=== PATIENT | male | born 1940 | race Caucasian/White ===

== ENCOUNTER 2017-07-29 10:22 | Inpatient (IN) | payer MEDICARE, OTHER, SELFPAY ==
[2017-07-29] VITALS (11 sets, daily range): BP systolic 129–177; BP diastolic 65–87; PULSE 63–93; RESP 16–21; TEMP 36.7–38.8; O2SAT 93–97; BMI 31.2; BMI 30.7
--- NOTE | 2017-07-29 10:40 | RAD_ITS ---
STUDY: X-RAY CHEST REASON FOR EXAM: Male, 76 years old. Cough. TECHNIQUE: Single AP portable view of the chest. COMPARISON: Comparison is made with prior study dated July 28, 2017. FINDINGS: EKG electrodes are seen. Stable elevation of the right hemidiaphragm. Stable mild increased interstitial markings bilaterally. This is stable. This most likely represents scarring. At this time however, there is a mild degree of vascular congestion. Sternal cerclage wires and vascular clips are present from a prior sternotomy and coronary artery bypass graft procedure (CABG). Normal mediastinum and coco. Normal visualized pulmonary arteries. There is atherosclerotic calcification of the aortic arch with tortuosity. There are diffuse degenerative changes of the visualized thoracic spine. Normal visualized ribs, clavicles, and shoulders. There is no demonstrated abnormality of the visualized soft tissue structures of the upper abdomen. RAD/Chest 1 View (Portable) IMPRESSION: Mild degree of vascular congestion superimposed on interstitial scarring. Electronically Signed: Marquis Luna MD at 11:44 EST Tel [phone], Service support ,
[2017-07-29 11:40] LABS: Anion Gap 11 (5-15); BUN 49 mg/dL (7-18); BUN/Creat Ratio 17.2 RATIO (10-20); Calcium,Total 8.4 mg/dL (8.5-10.1); Chloride 98 mmol/L (98-107); Creatinine, Serum 2.85 mg/dL (0.70-1.30); EST Glomerular Filtration Rate 23 mL/min (>60); Est Glom Filt Rate - Afr Amer 28 mL/min (>60); Estimated Creatinine Clearance 22.77 ml/min; Glucose 143 mg/dL (70-110); Potassium 4.3 mmol/L (3.5-5.1); Sodium Level 132 mmol/L (136-145)
[2017-07-29 11:41] LABS: Absolute Lymphocyte Count 0.52 X10^3/ul (0.83-4.51); Absolute Neutrophil Count 6.4 X10^3/uL (2.0-7.7); Basophil# 0.01 X10^3/uL; Basophil% 0.1 % (0-1); Differential Indicated SCAN CRITERIA MET; Eosinophil# 0.02 X10^3/uL; Eosinophils% 0.3 % (0-5); Hematocrit 29.2 % (40-54); Hemoglobin 9.5 g/dl (13.0-16.5); Lymphocyte # 0.52 X10^3/ul (4.0); Lymphocyte % 6.8 % (19-41); Mean Corp Hgb Conc 32.5 g/gl (32-36); Mean Corpuscular Hgb 28.2 pg (27.0-32.0); Mean Corpuscular Volume 86.6 fL (80-94); Mean Platelet Vol. 10.1 fl (6.2-12.0); Monocyte# 0.64 X10^3/uL; Monocyte% 8.4 % (0-10); Neutrophil % 84.1 % (47-70); POSITIVE COUNT NO; POSITIVE DIFFERENTIAL YES; POSITIVE MORPHOLOGY NO; Platelet Count 129 K/mm3 (150-450); Red Blood Count 3.37 M/mm3 (4.6-6.2); White Blood Count 7.6 K/mm3 (4.4-11.0)
--- NOTE | 2017-07-29 13:03 | ED.VISSUMM ---
- ER Visit Summary Date of Service: 07/29/17 Chief Complaint: Not feeling well. Sent in by primary care physician's office due to positive blood cultures. History of Present Illness: The patient is a 76 M history of renal insufficiency due to having one kidney from a prior nephrectomy for kidney cancer. Prior triple bypass. History of diabetes and hypertension. He is also had valvular heart surgery. Patient has been feeling well basically since Angella. His intermittent fever and chills and a cough. He was seen in the ER workup and follow-up with primary care physician. Blood cultures were obtained it was positive for enterococcus and is sitting in the ER for further evaluation. Physical Examination: Well-appearing older male. Vital signs are stable afebrile. Temperature here is 99.5. He does not look septic or toxic. He is in no acute distress. His blood pressure is 142/72. HEENT exam unremarkable. Neck nontender no lymphadenopathy. Lungs clear to auscultation bilaterally. Heart regular rhythm for her systolic ejection murmur which is old. Abdomen soft nontender. Extremities moves all 4. Neurologically intact. No deformity. Neurologic exam is awake alert without focal deficits. Patient's and daughter accompany him in room. Test Results: Chest x-ray shows chronic changes no acute process. Prior sternotomy read both by myself and the radiologist. CBC shows a white count 7.6. H&H of 9.5 and 29 which is along his baseline. No bands. BMP shows sodium 132. Normal anion gap of 11. Creatinine 2.85 which is long his baseline. And dehydration with a BUN of 49. We were able to get his blood culture results from his doctor's office which showed positive enterococcus and pending sensitivities. Emergency Department Course and Treatment: Patient will be admitted for bacteremia. Treatment Plan: I will speak to the hospitalist about admission and IV antibiotic of choice. Disposition: Admission Impression: Positive blood cultures secondary to bacteremia Chronic anemia and chronic renal insufficiency. Hydration. History of [id number] diabetes, only one kidney, triple bypass and aortic valve repair This note was generated with [employer] dictation software. It may contain incorrect words, spelling, and punctuation that were not noted in review of the chart prior to signing ED Disposition - Plan for ED Patient: Chief Complaint: Abn Labs Referrals: Dejuan Catherine DO [Primary Care Provider] -
--- NOTE | 2017-07-29 13:08 | ED.DCSUM_ITS ---
- ER Visit Summary Date of Service: 07/29/17 Chief Complaint: Not feeling well. Sent in by primary care physician's office due to positive blood cultures. History of Present Illness: The patient is a 76 M history of renal insufficiency due to having one kidney from a prior nephrectomy for kidney cancer. Prior triple bypass. History of diabetes and hypertension. He is also had valvular heart surgery. Patient has been feeling well basically since Angella. His intermittent fever and chills and a cough. He was seen in the ER workup and follow-up with primary care physician. Blood cultures were obtained it was positive for enterococcus and is sitting in the ER for further evaluation. Physical Examination: Well-appearing older male. Vital signs are stable afebrile. Temperature here is 99.5. He does not look septic or toxic. He is in no acute distress. His blood pressure is 142/72. HEENT exam unremarkable. Neck nontender no lymphadenopathy. Lungs clear to auscultation bilaterally. Heart regular rhythm for her systolic ejection murmur which is old. Abdomen soft nontender. Extremities moves all 4. Neurologically intact. No deformity. Neurologic exam is awake alert without focal deficits. Patient's and daughter accompany him in room. Test Results: Chest x-ray shows chronic changes no acute process. Prior sternotomy read both by myself and the radiologist. CBC shows a white count 7.6. H&H of 9.5 and 29 which is along his baseline. No bands. BMP shows sodium 132. Normal anion gap of 11. Creatinine 2.85 which is long his baseline. And dehydration with a BUN of 49. We were able to get his blood culture results from his doctor's office which showed positive enterococcus and pending sensitivities. Emergency Department Course and Treatment: Patient will be admitted for bacteremia. Treatment Plan: I will speak to the hospitalist about admission and IV antibiotic of choice. Disposition: Admission Impression: Positive blood cultures secondary to bacteremia Chronic anemia and chronic renal insufficiency. Hydration. History of [id number] diabetes, only one kidney, triple bypass and aortic valve repair This note was generated with [employer] dictation software. It may contain incorrect words, spelling, and punctuation that were not noted in review of the chart prior to signing ED Disposition - Plan for ED Patient: Chief Complaint: Abn Labs Referrals: Dejuan Catherine DO [Primary Care Provider] -
[2017-07-29] MEDS: 0.9% Normal Saline 1,000 ML 999 ML IV (13:54)
--- NOTE | 2017-07-29 13:57 | PCM.HP.STD ---
Problem List (1) Renal cell cancer Status: Chronic Comment: S/P nephrectomy on January 13, 2016 at (2) DM2 (diabetes mellitus, type 2) Status: Chronic (3) Hypertension, essential Status: Chronic (4) CAD (coronary artery disease) Status: Chronic (5) S/P CABG x 3 Status: Chronic Comment: Triple bypass in July 2015 at [facility] in [place] (6) Osteoarthritis of left knee Status: Chronic (7) Hypertension Status: Chronic (8) Hyperlipidemia Status: Chronic (9) Aortic stenosis Status: Chronic (10) Solitary kidney Status: Chronic (11) Chronic kidney disease Status: Chronic Qualifiers: Chronic kidney disease stage: stage 4 (severe) Qualified Code(s): N18.4 - Chronic kidney disease, stage 4 (severe) History of Present Illness Date of Admission: 07/29/17 Chief Complaint: Generalized weakness and fever for about 1 week The patient is a 76 year old M with multiple comorbidities listed including bioprosthetic aortic valve, triple bypass CABG in July 2015, renal cell cancer status post nephrectomy in January 2016 1 diabetes mellitus type 2 came to ER with complaint of generalized weakness and low-grade fever for 1 week. The patient has severe weakness and could not even stand up or walk around her last 1 week. As per the , patient also had confusion, 2 episode and could not understand her. As per the patient's , his baseline temperature is 97 Fahrenheit and he has been having temperature 99.8. He also has cough going on since last Angella. Yesterday, his PCP Dr. Catherine sent blood culture which came positive of Enterococcus faecalis on PCR. Influenza test negative. Besides that, patient denies any focal symptoms of infection including lower urinary tract symptoms, tachypnea, chest pain, shortness of breath, abdominal pain. In ED, his temperature was 99.5 Fahrenheit. Mild tachypnea, respiratory rate 20-21/min but no labored breathing. No tachycardia pulse ox 96% on room air. In ED, chest x-ray shows mild degree of vascular congestion. Basic blood work does not show leukocytosis but mild anemia and thrombocytopenia. Patient is not on any anticoagulation/antiplatelet agent because of history of coagulopathy probably after nephrectomy. He also has bruise on the upper extremities. Past Medical History Past Medical History (Chronic Problems): Chronic Problems Renal cell cancer (Chronic) S/P nephrectomy on January 13, 2016 at DM2 (diabetes mellitus, type 2) (Chronic) Hypertension, essential (Chronic) CAD (coronary artery disease) (Chronic) S/P CABG x 3 (Chronic) Triple bypass in July 2015 at [facility] Osteoarthritis of left knee (Chronic) Hypertension (Chronic) Hyperlipidemia (Chronic) Aortic stenosis (Chronic) Solitary kidney (Chronic) Chronic kidney disease (Chronic) Allergies losartan potassium [From Cozaar] Allergy (Severe, Verified 07/29/17 10:25) Other valsartan [From Diovan HCT] Allergy (Severe, Verified 07/29/17 10:25) Other amlodipine besylate [From Norvasc] Allergy (Verified 07/29/17 10:25) Other doxazosin mesylate [From Cardura] Allergy (Verified 07/29/17 10:25) Other furosemide [From Lasix] Allergy (Verified 07/29/17 10:25) Other hydrochlorothiazide Allergy (Verified 07/29/17 10:25) Other metoprolol succinate [From Toprol XL] Allergy (Verified 07/29/17 10:25) Other simvastatin Allergy (Verified 07/29/17 10:25) Other oxycodone [From OxyIR] Adverse Reaction (Verified 07/29/17 10:25) Other Hydrogenated Vegetable Oil Adverse Reaction (Uncoded 07/29/17 13:53) Upset Stomach vicodin Adverse Reaction (Uncoded 07/29/17 10:25) Other Home Medications: Ambulatory Orders Medication Instructions Recorded Ascorbic Acid [Vitamin C] 1,000 mg PO DAILY@0800 02/06/16 Multivitamin [Daily Multiple 1 each PO DAILY 02/06/16 Vitamin] Nateglinide [Starlix] 30 mg PO TIDCM 02/06/16 Cholecalciferol (Vitamin D3) 2,000 unit PO DAILY 07/28/17 [Vitamin D3] Docusate Sodium [Colace] 100 mg PO DAILY 07/28/17 Iron Polysaccharide Complex 325 mg PO DAILYCM 07/28/17 [Ferrex 150] Labetalol [Trandate] 100 mg PO BID 07/28/17 Diltiazem HCl [Diltiazem ER] 180 mg PO BID 07/29/17 Surgical History: cataract, coronary bypass surgery - X 3., herniorrhaphy - Umbilical., - - Hemorrhoidectomy, aortic valve replacement (bovine), cardiac stent, right nephrectomy 01/15/2016. Psychiatric History: No pertinent psych hx Smoking Status: Former smoker - *Family History Sibling History Items: Diabetes Paternal History Items: No pertinent history Maternal History Items: Cancer - breast Review of Systems Constitutional: Reports: Chills, Fever, Malaise HEENT: Denies: Head Aches, Sinus Congestion, Sinus Drainage Cardiovascular: Denies: Chest Pain, Palpitations Respiratory: Reports: Cough Gastrointestinal: Denies: Abdominal Pain, Nausea, Vomiting Genitourinary: Reports: Dysuria Musculoskeletal: Denies: Joint Pain, Joint Tenderness Skin: Denies: Rash, Wounds Neurological: Denies: Numbness, Tingling, Focal weakness Psychiatric: Denies: Anxiety, Depression, Homicidal Ideations, Suicidal Ideations Hematologic/ Lymphatic: Denies: Easy Bruising, Easy Bleeding VTE Information - Inpt Only VTE Present on Admission: No VTE Mechan Device Prophylaxis: SCD's VTE Pharm Prophylaxis ordered?: No Reason prophylaxis not ordered:: Medical Contraindication - History of coagulopathy and bleeding. Patient Problems: Active and Suspected Problems Bacteremia due to Enterococcus (Acute) - Physical Exam General: Alert, Oriented x3, Cooperative HEENT: Atraumatic, PERRLA, EOMI, Normocephalic Oral: Dry Mucosa Neck: Supple, No JVD, Negative Carotid Bruits Lungs: No rhonchi, Diminished, Rhonchi Cardiovascular: Regular rate, Regular Rhythm, Normal S1, Normal S2, No murmurs, - - Adventitious sound of aortic valve present Abdomen: Bowel Sounds Present, Soft, Non Tender, Non-Distended Extremities: Capillary Refill Less than 3 Seconds, Edema - Mild baseline pedal edema Skin: No rashes, No breakdown, - - skin ecchymosis present on upper extremities Musculoskeletal: No Tenderness to Palpation of Joints or Extremities, Arthritic Changes Neurological: Cranial nerves II-XII grossly intact Psych/Mental Status: Normal Affect, Appropriate Vital Signs Temp Pulse Resp BP Pulse Ox 99.5 F H 63 19 H 156/79 H 93 07/29/17 10:23 07/29/17 13:03 07/29/17 13:03 07/29/17 13:03 07/29/17 13:03 Oxygen Delivery Method Room Air Weight: 218 lb Body Mass Index (BMI) 31.2 Finger Stick Blood Glucose 133 Laboratory Tests Past 24 Hrs 07/29/17 07/29/17 11:08 11:08 WBC 7.6 RBC 3.37 L Hgb 9.5 L Hct 29.2 L MCV 86.6 MCH 28.2 MCHC 32.5 RDW 15.0 H RDW Differential 46.0 H Plt Count 129 L MPV 10.1 Immature Gran % (Auto) 0.300 Neut % (Auto) 84.1 H Lymph % (Auto) 6.8 L Ellis % (Auto) 8.4 Eos % (Auto) 0.3 Baso % (Auto) 0.1 Absolute Neuts (auto) 6.4 Absolute Lymphs (auto) 0.52 L Total Counted Not Reportable Differential Comment COMMENT Sodium 132 L Potassium 4.3 Chloride 98 Carbon Dioxide 23.0 Anion Gap 11 BUN 49 H Creatinine 2.85 H Estim Creat Clear Calc 22.77 Est GFR (MDRD) Af Amer 28 L Est GFR (MDRD) Non-Af 23 L BUN/Creatinine Ratio 17.2 Glucose 143 H Calcium 8.4 L Assessment/Plan Active and Suspected Problems Bacteremia due to Enterococcus (Acute) The patient is a 76 year old M with multiple comorbidities listed including bioprosthetic aortic valve, triple bypass CABG in July 2015, renal cell cancer status post nephrectomy in January 2016 1 diabetes mellitus type 2 came to ER with complaint of generalized weakness and low-grade fever for 1 week. As per the patient's , his baseline temperature is 97 Fahrenheit and he has been having temperature 99.8. He also has cough going on since last Angella. Yesterday, his PCP Dr. Catherine sent blood culture which came positive of Enterococcus faecalis on PCR. Influenza test negative. Besides that, patient denies any focal symptoms of infection including lower urinary tract symptoms, tachypnea, chest pain, shortness of breath, abdominal pain. In ED, his temperature was 99.5 Fahrenheit. Mild tachypnea, respiratory rate 20-21/min but no labored breathing. No tachycardia pulse ox 96% on room air. In ED, chest x-ray shows mild degree of vascular congestion. Basic blood work does not show leukocytosis but mild anemia and thrombocytopenia. Patient is not on any anticoagulation/antiplatelet agent because of history of coagulopathy probably after nephrectomy. He also has bruise on the upper extremities. 1. Generalized weakness and fever, fever of unknown origin with Enterococcus faecalis bacteremia of unclear source: [facility] Sepsis workup ordered. Started on IV vancomycin. Confirmed from the microbiology lab that patient does not have VRE. ID consult. Since the patient has bioprosthetic aortic valve, 2D echo was ordered to rule out wall vegetation and might further need TIM. CRP and ESR ordered. 2. URI probably subacute bronchitis for last 4 weeks: Patient has been on Mucinex. Bronchodilator as needed. Cough syrup. Influenza test negative 3. Chronic diastolic heart failure: Patient has 2D echo in October 2015 which shows EF 70%, left atrium mildly enlarged. Mild to moderate TR, RVSP 32 mmHg. Bioprosthetic aortic valve. Mild AR. Mild aortic stenosis, calculated aortic valve area 1.4 cm?. Patient is not short of breath although chest x-ray shows mild vascular congestion. 4. CKD stage IV with solitary kidney: As mentioned above patient had a right nephrectomy for renal cancer. His estimated creatinine clearance is 22 mL/min. It has been between 24-27 since February 2016. Currently creatinine is 2.85. His singer back tender is Dr. Adrián Robledo in [place]. 5. Diabetes mellitus type 2: Last A1c 5% in August 2016. Currently glucoses 143. A1c tomorrow a.m. Accu-Chek before meals and at bedtime cover with NovoLog sliding scale. Patient requested to take his own Starlix. 6. Other chronic comorbidities include hypertension, coronary artery disease status post triple-vessel CABG, aortic stenosis status post bioprosthetic valve, not on anticoagulant/antiplatelet agent, dyslipidemia: This complicates the present care. Home medication reconciliation done. DVT prophylaxis: Moderate risk but patient has not tolerated anticoagulant/antiplatelet agent secondary to anemia and thrombocytopenia and multiple bruises in the distant past. Logical prophylaxis contraindicated. Bilateral SCDs Laboratory Results 07/29/17 11:08: WBC 7.6, RBC 3.37 L, Hgb 9.5 L, Hct 29.2 L, MCV 86.6, MCH 28.2, MCHC 32.5, RDW 15.0 H, RDW Differential 46.0 H, Plt Count 129 L, MPV 10.1, Immature Gran % (Auto) 0.300, Neut % (Auto) 84.1 H, Lymph % (Auto) 6.8 L, Ellis % (Auto) 8.4, Eos % (Auto) 0.3, Baso % (Auto) 0.1, Absolute Neuts (auto) 6.4, Absolute Lymphs (auto) 0.52 L, Total Counted Not Reportable, Differential Comment COMMENT 07/29/17 11:08: Sodium 132 L, Potassium 4.3, Chloride 98, Carbon Dioxide 23.0, Anion Gap 11, BUN 49 H, Creatinine 2.85 H, Estim Creat Clear Calc 22.77, Est GFR (MDRD) Af Amer 28 L, Est GFR (MDRD) Non-Af 23 L, BUN/Creatinine Ratio 17.2, Glucose 143 H, Calcium 8.4 L Clinical Impression(s) from Imaging Studies Chest X-Ray 07/29/17 10:40 IMPRESSION: Mild degree of vascular congestion superimposed on interstitial scarring. Electronically Signed: Marquis Luna MD at 11:44 EST Tel [phone], Service support , Total time spent more than 45 minutes. Code Visit Inpatient E&M: 00222 Init Hosp L3
--- NOTE | 2017-07-29 14:09 | HP.PCM_ITS ---
Problem List (1) Renal cell cancer Status: Chronic Comment: S/P nephrectomy on January 13, 2016 at (2) DM2 (diabetes mellitus, type 2) Status: Chronic (3) Hypertension, essential Status: Chronic (4) CAD (coronary artery disease) Status: Chronic (5) S/P CABG x 3 Status: Chronic Comment: Triple bypass in July [address] [facility] in [place] (6) Osteoarthritis of left knee Status: Chronic (7) Hypertension Status: Chronic (8) Hyperlipidemia Status: Chronic (9) Aortic stenosis Status: Chronic (10) Solitary kidney Status: Chronic (11) Chronic kidney disease Status: Chronic Qualifiers: Chronic kidney disease stage: stage 4 (severe) Qualified Code(s): N18.4 - Chronic kidney disease, stage 4 (severe) History of Present Illness Date of Admission: 07/29/17 Chief Complaint: Generalized weakness and fever for about 1 week The patient is a 76 year old M with multiple comorbidities listed including bioprosthetic aortic valve, triple bypass CABG in July 2015, renal cell cancer status post nephrectomy in January 2016 1 diabetes mellitus type 2 came to ER with complaint of generalized weakness and low-grade fever for 1 week. The patient has severe weakness and could not even stand up or walk around her last 1 week. As per the , patient also had confusion, 2 episode and could not understand her. As per the patient's , his baseline temperature is 97 Fahrenheit and he has been having temperature 99.8. He also has cough going on since last Angella. Yesterday, his PCP Dr. Catherine sent blood culture which came positive of Enterococcus faecalis on PCR. Influenza test negative. Besides that, patient denies any focal symptoms of infection including lower urinary tract symptoms, tachypnea, chest pain, shortness of breath, abdominal pain. In ED, his temperature was 99.5 Fahrenheit. Mild tachypnea, respiratory rate 20 -21/min but no labored breathing. No tachycardia pulse ox 96% on room air. In ED, chest x-ray shows mild degree of vascular congestion. Basic blood work does not show leukocytosis but mild anemia and thrombocytopenia. Patient is not on any anticoagulation/antiplatelet agent because of history of coagulopathy probably after nephrectomy. He also has bruise on the upper extremities. Past Medical History Past Medical History (Chronic Problems): Chronic Problems Renal cell cancer (Chronic) S/P nephrectomy on January 13, 2016 at DM2 (diabetes mellitus, type 2) (Chronic) Hypertension, essential (Chronic) CAD (coronary artery disease) (Chronic) S/P CABG x 3 (Chronic) Triple bypass in July 2015 at [facility] Osteoarthritis of left knee (Chronic) Hypertension (Chronic) Hyperlipidemia (Chronic) Aortic stenosis (Chronic) Solitary kidney (Chronic) Chronic kidney disease (Chronic) Allergies losartan potassium [From Cozaar] Allergy (Severe, Verified 07/29/17 10:25) Other valsartan [From Diovan HCT] Allergy (Severe, Verified 07/29/17 10:25) Other amlodipine besylate [From Norvasc] Allergy (Verified 07/29/17 10:25) Other doxazosin mesylate [From Cardura] Allergy (Verified 07/29/17 10:25) Other furosemide [From Lasix] Allergy (Verified 07/29/17 10:25) Other hydrochlorothiazide Allergy (Verified 07/29/17 10:25) Other metoprolol succinate [From Toprol XL] Allergy (Verified 07/29/17 10:25) Other simvastatin Allergy (Verified 07/29/17 10:25) Other oxycodone [From OxyIR] Adverse Reaction (Verified 07/29/17 10:25) Other Hydrogenated Vegetable Oil Adverse Reaction (Uncoded 07/29/17 13:53) Upset Stomach vicodin Adverse Reaction (Uncoded 07/29/17 10:25) Other Home Medications: Ambulatory Orders Medication Instructions Recorded Ascorbic Acid [Vitamin C] 1,000 mg PO DAILY@0800 02/06/16 Multivitamin [Daily Multiple 1 each PO DAILY 02/06/16 Vitamin] Nateglinide [Starlix] 30 mg PO TIDCM 02/06/16 Cholecalciferol (Vitamin D3) 2,000 unit PO DAILY 07/28/17 [Vitamin D3] Docusate Sodium [Colace] 100 mg PO DAILY 07/28/17 Iron Polysaccharide Complex 325 mg PO DAILYCM 07/28/17 [Ferrex 150] Labetalol [Trandate] 100 mg PO BID 07/28/17 Diltiazem HCl [Diltiazem ER] 180 mg PO BID 07/29/17 Surgical History: cataract, coronary bypass surgery - X 3., herniorrhaphy - Umbilical., - - Hemorrhoidectomy, aortic valve replacement (bovine), cardiac stent, right nephrectomy 01/15/2016. Psychiatric History: No pertinent psych hx Smoking Status: Former smoker - *Family History Sibling History Items: Diabetes Paternal History Items: No pertinent history Maternal History Items: Cancer - breast Review of Systems Constitutional: Reports: Chills, Fever, Malaise HEENT: Denies: Head Aches, Sinus Congestion, Sinus Drainage Cardiovascular: Denies: Chest Pain, Palpitations Respiratory: Reports: Cough Gastrointestinal: Denies: Abdominal Pain, Nausea, Vomiting Genitourinary: Reports: Dysuria Musculoskeletal: Denies: Joint Pain, Joint Tenderness Skin: Denies: Rash, Wounds Neurological: Denies: Numbness, Tingling, Focal weakness Psychiatric: Denies: Anxiety, Depression, Homicidal Ideations, Suicidal Ideations Hematologic/ Lymphatic: Denies: Easy Bruising, Easy Bleeding VTE Information - Inpt Only VTE Present on Admission: No VTE Mechan Device Prophylaxis: SCD's VTE Pharm Prophylaxis ordered?: No Reason prophylaxis not ordered:: Medical Contraindication - History of coagulopathy and bleeding. Patient Problems: Active and Suspected Problems Bacteremia due to Enterococcus (Acute) - Physical Exam General: Alert, Oriented x3, Cooperative HEENT: Atraumatic, PERRLA, EOMI, Normocephalic Oral: Dry Mucosa Neck: Supple, No JVD, Negative Carotid Bruits Lungs: No rhonchi, Diminished, Rhonchi Cardiovascular: Regular rate, Regular Rhythm, Normal S1, Normal S2, No murmurs, - - Adventitious sound of aortic valve present Abdomen: Bowel Sounds Present, Soft, Non Tender, Non-Distended Extremities: Capillary Refill Less than 3 Seconds, Edema - Mild baseline pedal edema Skin: No rashes, No breakdown, - - skin ecchymosis present on upper extremities Musculoskeletal: No Tenderness to Palpation of Joints or Extremities, Arthritic Changes Neurological: Cranial nerves II-XII grossly intact Psych/Mental Status: Normal Affect, Appropriate Vital Signs Temp Pulse Resp BP Pulse Ox 99.5 F H 63 19 H 156/79 H 93 07/29/17 10:23 07/29/17 13:03 07/29/17 13:03 07/29/17 13:03 07/29/17 13:03 Oxygen Delivery Method Room Air Weight: 218 lb Body Mass Index (BMI) 31.2 Finger Stick Blood Glucose 133 Laboratory Tests Past 24 Hrs 07/29/17 07/29/17 11:08 11:08 WBC 7.6 RBC 3.37 L Hgb 9.5 L Hct 29.2 L MCV 86.6 MCH 28.2 MCHC 32.5 RDW 15.0 H RDW Differential 46.0 H Plt Count 129 L MPV 10.1 Immature Gran % (Auto) 0.300 Neut % (Auto) 84.1 H Lymph % (Auto) 6.8 L Johnson % (Auto) 8.4 Eos % (Auto) 0.3 Baso % (Auto) 0.1 Absolute Neuts (auto) 6.4 Absolute Lymphs (auto) 0.52 L Total Counted Not Reportable Differential Comment COMMENT Sodium 132 L Potassium 4.3 Chloride 98 Carbon Dioxide 23.0 Anion Gap 11 BUN 49 H Creatinine 2.85 H Estim Creat Clear Calc 22.77 Est GFR (MDRD) Af Amer 28 L Est GFR (MDRD) Non-Af 23 L BUN/Creatinine Ratio 17.2 Glucose 143 H Calcium 8.4 L Assessment/Plan Active and Suspected Problems Bacteremia due to Enterococcus (Acute) The patient is a 76 year old M with multiple comorbidities listed including bioprosthetic aortic valve, triple bypass CABG in July 2015, renal cell cancer status post nephrectomy in January 2016 1 diabetes mellitus type 2 came to ER with complaint of generalized weakness and low-grade fever for 1 week. As per the patient's , his baseline temperature is 97 Fahrenheit and he has been having temperature 99.8. He also has cough going on since last Angella. Yesterday, his PCP Dr. Catherine sent blood culture which came positive of Enterococcus faecalis on PCR. Influenza test negative. Besides that, patient denies any focal symptoms of infection including lower urinary tract symptoms, tachypnea, chest pain, shortness of breath, abdominal pain. In ED, his temperature was 99.5 Fahrenheit. Mild tachypnea, respiratory rate 20 -21/min but no labored breathing. No tachycardia pulse ox 96% on room air. In ED, chest x-ray shows mild degree of vascular congestion. Basic blood work does not show leukocytosis but mild anemia and thrombocytopenia. Patient is not on any anticoagulation/antiplatelet agent because of history of coagulopathy probably after nephrectomy. He also has bruise on the upper extremities. 1. Generalized weakness and fever, fever of unknown origin with Enterococcus faecalis bacteremia of unclear source: [facility] Sepsis workup ordered. Started on IV vancomycin. Confirmed from the microbiology lab that patient does not have VRE. ID consult. Since the patient has bioprosthetic aortic valve, 2D echo was ordered to rule out wall vegetation and might further need TIM. CRP and ESR ordered. 2. URI probably subacute bronchitis for last 4 weeks: Patient has been on Mucinex. Bronchodilator as needed. Cough syrup. Influenza test negative 3. Chronic diastolic heart failure: Patient has 2D echo in October 2015 which shows EF 70%, left atrium mildly enlarged. Mild to moderate TR, RVSP 32 mmHg. Bioprosthetic aortic valve. Mild AR. Mild aortic stenosis, calculated aortic valve area 1.4 cm?. Patient is not short of breath although chest x-ray shows mild vascular congestion. 4. CKD stage IV with solitary kidney: As mentioned above patient had a right nephrectomy for renal cancer. His estimated creatinine clearance is 22 mL/min. It has been between 24-27 since February 2016. Currently creatinine is 2.85. His carpet mechanic is Dr. Adrián Robledo in [place]. 5. Diabetes mellitus type 2: Last A1c 5% in August 2016. Currently glucoses 143. A1c tomorrow a.m. Accu-Chek before meals and at bedtime cover with NovoLog sliding scale. Patient requested to take his own Starlix. 6. Other chronic comorbidities include hypertension, coronary artery disease status post triple-vessel CABG, aortic stenosis status post bioprosthetic valve , not on anticoagulant/antiplatelet agent, dyslipidemia: This complicates the present care. Home medication reconciliation done. DVT prophylaxis: Moderate risk but patient has not tolerated anticoagulant/ antiplatelet agent secondary to anemia and thrombocytopenia and multiple bruises in the distant past. Logical prophylaxis contraindicated. Bilateral SCDs Laboratory Results 07/29/17 11:08: WBC 7.6, RBC 3.37 L, Hgb 9.5 L, Hct 29.2 L, MCV 86.6, MCH 28.2, MCHC 32.5, RDW 15.0 H, RDW Differential 46.0 H, Plt Count 129 L, MPV 10.1, Immature Gran % (Auto) 0.300, Neut % (Auto) 84.1 H, Lymph % (Auto) 6.8 L, Johnson % (Auto) 8.4, Eos % (Auto) 0.3, Baso % (Auto) 0.1, Absolute Neuts (auto) 6.4, Absolute Lymphs (auto) 0.52 L, Total Counted Not Reportable, Differential Comment COMMENT 07/29/17 11:08: Sodium 132 L, Potassium 4.3, Chloride 98, Carbon Dioxide 23.0, Anion Gap 11, BUN 49 H, Creatinine 2.85 H, Estim Creat Clear Calc 22.77, Est GFR (MDRD) Af Amer 28 L, Est GFR (MDRD) Non-Af 23 L, BUN/Creatinine Ratio 17.2, Glucose 143 H, Calcium 8.4 L Clinical Impression(s) from Imaging Studies Chest X-Ray 07/29/17 10:40 IMPRESSION: Mild degree of vascular congestion superimposed on interstitial scarring. Electronically Signed: Marquis Luna MD at 11:44 EST Tel [phone], Service support , Total time spent more than 45 minutes. Code Visit Inpatient E&M: 35702 Init Hosp L3
[2017-07-29 15:44] LABS: BNP,B-Type NATRIURETIC PEPTIDE 244.2 pg/mL (0-100)
[2017-07-29 16:50] LABS: Erythrocyte Sedimentation Rate 15 mm/hr (0-20)
[2017-07-29 16:53] LABS: International Normalized Ratio 1.2; Partial Thromboplast Time 36.5 Seconds (24.1-36.2); Prothrombin Time (Protime)PT. 14.6 SECONDS (11.7-14.9)
[2017-07-29 17:06] LABS: Lactic Acid 1.3 mmol/L (0.4-2.0)
[2017-07-29 17:10] LABS: Hemoglobin A1c 5.5 % (4.2-6.3)
[2017-07-29 17:21] LABS: Bedside Glucose 124 mg/dL (70-110)
[2017-07-29] MEDS: Labetalol 100 MG Tablet PO (20:33)
[2017-07-29] MEDS: dilTIAZem CD 180 MG Capsule PO (20:33)
[2017-07-29] MEDS: Ibuprofen 400 MG Tablet PO (20:35)
[2017-07-29 21:51] LABS: Bedside Glucose 144 mg/dL (70-110)
[2017-07-30] VITALS (11 sets, daily range): BP systolic 132–176; BP diastolic 60–83; PULSE 51–97; RESP 16–18; TEMP 36.3–37.7; O2SAT 96–98
[2017-07-30] MEDS: Multivitamins,Therapeutic Tablet 1 TABLET PO (08:26)
[2017-07-30] MEDS: Ascorbic Acid 500 MG Tablet 1000 MG PO (08:26)
[2017-07-30] MEDS: dilTIAZem CD 180 MG Capsule PO ×2 (08:26→22:04)
[2017-07-30] MEDS: Docusate Sodium 100 MG Capsule PO (08:27)
[2017-07-30] MEDS: Labetalol 100 MG Tablet PO ×2 (08:27→22:04)
[2017-07-30 09:11] LABS: Bedside Glucose 112 mg/dL (70-110)
[2017-07-30] MEDS: Piperacil/Tazobactam 3.375 GM/50 ML ML IV (09:50)
--- NOTE | 2017-07-30 11:06 | CON.PCM_ITS ---
Problem List (1) Bacteremia due to Enterococcus Status: Acute Reason for Consult: (+) bcx Consulted by: Dr. Espinal History of Present Illness: The patient is a 76 year old M with h/o bioprosthetic valve replacement in 2015 at [place] who presented with several days of fever, not feeling well. No abd pain, no n/v/d. No recent abx. Had some sinus congestion recently which resolved with OTC meds. No recent rash/cuts/scrapes. Went to ED, sent home, saw PCP 07/28, bcx sent, now (+) for enterococcus. Sent to hospital, now on vanc /zosyn, feeling better. Full ROS performed and neg except as noted above. No new joint/back pain. - Medical History Past Medical History (Chronic Problems): Chronic Problems Renal cell cancer (Chronic) S/P nephrectomy on January 13, 2016 at DM2 (diabetes mellitus, type 2) (Chronic) Hypertension, essential (Chronic) CAD (coronary artery disease) (Chronic) S/P CABG x 3 (Chronic) Triple bypass in July [address] [facility] in [place] Osteoarthritis of left knee (Chronic) Hypertension (Chronic) Hyperlipidemia (Chronic) Aortic stenosis (Chronic) Solitary kidney (Chronic) Chronic kidney disease (Chronic) Allergies/Adverse Reactions: Allergies losartan potassium [From Cozaar] Allergy (Severe, Verified 07/29/17 10:25) Other valsartan [From Diovan HCT] Allergy (Severe, Verified 07/29/17 10:25) Other amlodipine besylate [From Norvasc] Allergy (Verified 07/29/17 10:25) Other doxazosin mesylate [From Cardura] Allergy (Verified 07/29/17 10:25) Other furosemide [From Lasix] Allergy (Verified 07/29/17 10:25) Other hydrochlorothiazide Allergy (Verified 07/29/17 10:25) Other metoprolol succinate [From Toprol XL] Allergy (Verified 07/29/17 10:25) Other simvastatin Allergy (Verified 07/29/17 10:25) Other oxycodone [From OxyIR] Adverse Reaction (Verified 07/29/17 10:25) Other Hydrogenated Vegetable Oil Adverse Reaction (Uncoded 07/29/17 13:53) Upset Stomach vicodin Adverse Reaction (Uncoded 07/29/17 10:25) Other Home Medications: Ambulatory Orders Medication Instructions Recorded Ascorbic Acid [Vitamin C] 1,000 mg PO DAILY@0800 02/06/16 Multivitamin [Daily Multiple 1 each PO DAILY 02/06/16 Vitamin] Nateglinide [Starlix] 30 mg PO TIDCM 02/06/16 Cholecalciferol (Vitamin D3) 2,000 unit PO DAILY 07/28/17 [Vitamin D3] Docusate Sodium [Colace] 100 mg PO DAILY 07/28/17 Iron Polysaccharide Complex 325 mg PO DAILYCM 07/28/17 [Ferrex 150] Labetalol [Trandate] 100 mg PO BID 07/28/17 Diltiazem HCl [Diltiazem ER] 180 mg PO BID 07/29/17 - Social History SMOKING STATUS:: Former smoker Vital Signs Temp Pulse Resp BP Pulse Ox 97.4 F L 61 18 150/83 H 97 07/30/17 08:30 07/30/17 08:33 07/30/17 08:30 07/30/17 08:30 07/30/17 08:30 Oxygen Delivery Method Room Air Weight: 97.2 kg Body Mass Index (BMI) 30.7 Microbiology Past 72 Hours 07/29/17 16:21 Blood Culture - Preliminary Blood Culture (Wb) - Right Hand 07/29/17 16:21 Blood Culture - Preliminary Blood Culture (Wb) #2 - Anticubital Right Laboratory Tests Past 24 Hrs 07/29/17 07/29/17 07/29/17 16:21 16:21 16:21 ESR 15 PT 14.6 INR 1.2 APTT 36.5 H Hemoglobin A1c Lactic Acid C-React Prot Ext Range 112.00 H 07/29/17 07/29/17 16:21 16:21 ESR PT INR APTT Hemoglobin A1c 5.5 Lactic Acid 1.3 C-React Prot Ext Range - Other Studies Radiology: [] reviewed Other Studies: [] Route of nutrition/ use of supplements: [] Nutritional Intake: [] IV Site: [] Irving Catheter: [] - Physical Exam General: Alert, Oriented x3, Cooperative, No apparent distress HEENT: Atraumatic, PERRLA, EOMI Neck: Supple, No Nodes Lungs: Clear to auscultation, Normal air movement Cardiovascular: Regular rate, Regular Rhythm, Murmur - loud systolic murmur Abdomen: Bowel Sounds Present, Soft, Non Tender, Non-Distended Extremities: No edema Skin: No rashes IV Site: Peripheral, without redness Musculoskeletal: No Tenderness to Palpation of Joints or Extremities Neurological: Cranial nerves II-XII grossly intact - Assessment/Plan Antibiotics: [] Assessment/Plan: [] Enterococcus bacteremia 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 Fever to 101.9 here. Would check TIM. [employer] Professional is Dr. Frye. PCR neg for VRE. Cont vanc. Change zosyn to unasyn for easier PIV access. CKD - stable Thank you, will follow, d/w pharmacy
[2017-07-30 12:31] LABS: Bedside Glucose 196 mg/dL (70-110)
--- NOTE | 2017-07-30 15:12 | CASEMGMT ---
KAREN CHAVEZ Face to Face with patient for initial transition planning/care coordination assessment. RN KATHY introduced self and role at [facility]. Patient lying in bed, alert and oriented. Patient willing to participate in assessment and is able to answer all questions appropriately. Care providers, pharmacy, and demographics verified. See link attached. Patient wishes to discharge home, denies need for home health at this time. Pt states he has no further needs or concerns at this time. CM to follow for discharge planning needs that may arise. Disposition Plan: Patient to discharge home with family support and follow-up plans in place. ID consulted, will monitor for need for HHC.
--- NOTE | 2017-07-30 15:28 | PCM.PROGNOTE ---
<Oswaldo Donald - Last Filed: 07/30/17 15:28> Patient Problems: Active and Suspected Problems Bacteremia due to Enterococcus (Acute) Subjective: Pt resting comfortably in bed. He reports in the past week he has had symptoms such as runny nose, sore throat, and cough, but that these have mostly resolved. He had a fever overnight last night. He has no abdominal pain, diarrhea, SOB, cough, or urinary discomfort. He denies wounds or open sores. He reports he was self treating at home by placing colloidal silver in a spray bottle and spraying it regularly into his nose and mucosa under his tongue. He states he believes that this is the best way to kill virus' and bacteria. - Physical Exam General: Alert, Oriented x3, Cooperative HEENT: Atraumatic, PERRLA, EOMI, Normocephalic Neck: Supple, No JVD, Negative Carotid Bruits Lungs: Clear to auscultation, Normal air movement Cardiovascular: Regular rate, Murmur - 3/6 blowing systolic murmur best heard over AV and LSB, audible across chest Abdomen: Bowel Sounds Present, Soft, Non Tender Extremities: No edema, Capillary Refill Less than 3 Seconds Skin: No rashes, No breakdown Musculoskeletal: No Tenderness to Palpation of Joints or Extremities Neurological: Cranial nerves II-XII grossly intact Psych/Mental Status: Normal Affect, Appropriate, Alert and oriented to time, place, person, mood and affect Vital Signs Temp Pulse Resp BP Pulse Ox 98.4 F 62 16 139/69 H 97 07/30/17 14:22 07/30/17 14:22 07/30/17 14:22 07/30/17 14:22 07/30/17 14:22 Oxygen Delivery Method Room Air Weight: 97.2 kg Body Mass Index (BMI) 30.7 Intake and Output for Last 24 Hours 07/28/17 07/29/17 07/30/17 23:59 23:59 23:59 Intake Total 518 / 518 1600 / 1600 Output Total 400 / 400 1400 / 1400 Balance 118 / 118 200 / 200 Microbiology Past 72 Hours 07/29/17 16:21 Blood Culture - Preliminary Blood Culture (Wb) - Right Hand 07/29/17 16:21 Blood Culture - Preliminary Blood Culture (Wb) #2 - Anticubital Right Laboratory Tests Past 24 Hrs 07/29/17 07/29/17 07/29/17 16:21 16:21 16:21 ESR 15 PT 14.6 INR 1.2 APTT 36.5 H Hemoglobin A1c Lactic Acid C-React Prot Ext Range 112.00 H 07/29/17 07/29/17 16:21 16:21 ESR PT INR APTT Hemoglobin A1c 5.5 Lactic Acid 1.3 C-React Prot Ext Range POC Glucose 07/30/17 07/30/17 07/29/17 11:32 08:23 21:42 POC Glucose 196 H 112 H 144 H 07/29/17 17:06 POC Glucose 124 H Assessment/Plan Active and Suspected Problems Bacteremia due to Enterococcus (Acute) 1. Bacteremia - E faecalis - Pt appears nontoxic and relatively asymptomatic. T max 101.9 last night. Outpatient blood cultures with E faecalis - not VRE - repeat blood cultures prelim showing GPCs. suspect 2/2 recent bronchitis. No other clear source of infection. Not recently on abx. ID following. Continue Vanc/Unasyn per them. TIM pending - pt has bioprosthetic AV. Lactate negative. Elevated CRP, ESR normal. Flu neg. CXR negative. 2. T2DM - A1C controlled. Continue current regimen. 3. CAD - s/p CABG x 3 07/2015. Continue home meds 4. HTN - improved 5. Aortic stenosis - s/p bioprosthetic valve 6. CKD IV - solitary kidney s/p right nephrectomy for renal cancer. Follows Dr. Robledo in [place]. 7. Normocytic anemia - likely 2/2 CKDIV. 8. Mild thrombocytopenia - avoid heparin products. DVT ppx: SCDs This patient was seen by Oswaldo Donald PA-C under the supervision of Doctor Espinal. <[place] - Last Filed: 07/30/17 17:04> - Physical Exam Vital Signs Temp Pulse Resp BP Pulse Ox 98.4 F 96 16 139/69 H 97 07/30/17 14:22 07/30/17 15:55 07/30/17 14:22 07/30/17 14:22 07/30/17 14:22 Oxygen Delivery Method Room Air Weight: 97.2 kg Body Mass Index (BMI) 30.7 Intake and Output for Last 24 Hours 07/28/17 07/29/17 07/30/17 23:59 23:59 23:59 Intake Total 518 / 518 2718 / 2718 Output Total 400 / 400 2100 / 2100 Balance 118 / 118 618 / 618 Microbiology Past 72 Hours 07/29/17 16:21 Blood Culture - Preliminary Blood Culture (Wb) - Right Hand 07/29/17 16:21 Blood Culture - Preliminary Blood Culture (Wb) #2 - Anticubital Right Laboratory Tests Past 24 Hrs 07/29/17 07/29/17 07/29/17 16:21 16:21 16:21 Hemoglobin A1c 5.5 Lactic Acid 1.3 C-React Prot Ext Range 112.00 H POC Glucose 07/30/17 07/30/17 07/30/17 16:43 11:32 08:23 POC Glucose 126 H 196 H 112 H 07/29/17 07/29/17 21:42 17:06 POC Glucose 144 H 124 H Assessment/Plan Was seen and examined independently of Oswaldo DAVE. History and physical exam as assessment and plan is as above Denies any active complaints, aware of positive blood cultures for E faecalis, repeat blood cultures are growing gram-positive cocci, infectious disease consulted, patient on vancomycin and Unasyn, will get TIM tomorrow HbA1c is 5.5, would DC Accu-Cheks and insulin sliding scale
--- NOTE | 2017-07-30 16:22 | CHAPLAIN ---
Type of Pastoral Visit _x__ Initial Visit ___ Follow-up Visit ___ On-call Visit ___ General Patient Visit ___ Spiritual Assessment ___ Family Conference ___ Bereavement ___ Rapid Response ___ Code Blue ___ Other (describe below) Pastoral Care Referral From _x__ Patient ___ Family ___ Nurse ___ Physician ___ Jinriksha Driver ___ [place] ___ Other (describe below) Sacrament/Intervention _x__ Active listening ___ Anointing ___ Denominational ___ Bereavement ___ Communion _x__ Tasha exploration ___ _x__ Life review _x__ Prayer ___ Reconciliation ___ Sacrament of Sick ___ Supportive presence ___ Wedding ___ Other (describe below) Pastoral Comments patient immediately goes into a congregation conversation and talks about his tasha system and particular beliefs; attempts were made by this child care attendant school to get into the patients own current needs or concerns at this time; pt continues to talk and talk; finally pt stops talking to accept a prayer; his concern is ultimately revealed as that infection is not in my heart valve that was replaced in 2016; spouse is with patient in the room
[2017-07-30 16:55] LABS: Bedside Glucose 126 mg/dL (70-110)
[2017-07-30] MEDS: Ibuprofen 400 MG Tablet PO (18:07)
[2017-07-31] VITALS (15 sets, daily range): BP systolic 138–182; BP diastolic 62–85; PULSE 61–77; RESP 16–18; TEMP 36.4–36.7; O2SAT 95–97
[2017-07-31 07:02] LABS: Absolute Lymphocyte Count 0.71 X10^3/ul (0.83-4.51); Absolute Neutrophil Count 3.6 X10^3/uL (2.0-7.7); Basophil# 0.02 X10^3/uL; Basophil% 0.4 % (0-1); Eosinophil# 0.33 X10^3/uL; Eosinophils% 5.9 % (0-5); Hematocrit 27.3 % (40-54); Hemoglobin 8.7 g/dl (13.0-16.5); Lymphocyte # 0.71 X10^3/ul (4.0); Lymphocyte % 12.7 % (19-41); Mean Corp Hgb Conc 31.9 g/gl (32-36); Mean Corpuscular Hgb 27.9 pg (27.0-32.0); Mean Corpuscular Volume 87.5 fL (80-94); Mean Platelet Vol. 9.8 fl (6.2-12.0); Monocyte# 0.92 X10^3/uL; Monocyte% 16.5 % (0-10); Neutrophil % 64.3 % (47-70); Platelet Count 108 K/mm3 (150-450); RBC Distribution Width CV 14.8 % (11.6-14.6); RBC Distribution Width SD 46.1 fl (35.1-43.9); Red Blood Count 3.12 M/mm3 (4.6-6.2); White Blood Count 5.6 K/mm3 (4.4-11.0)
[2017-07-31 07:11] LABS: POSITIVE COUNT NO; POSITIVE DIFFERENTIAL NO; POSITIVE MORPHOLOGY NO
[2017-07-31 07:15] LABS: Anion Gap 9 (5-15); BUN 50 mg/dL (7-18); Calcium,Total 8.1 mg/dL (8.5-10.1); Chloride 106 mmol/L (98-107); Creatinine, Serum 2.94 mg/dL (0.70-1.30); EST Glomerular Filtration Rate 22 mL/min (>60); Est Glom Filt Rate - Afr Amer 27 mL/min (>60); Estimated Creatinine Clearance 22.07 ml/min; Glucose 120 mg/dL (70-110); Potassium 3.7 mmol/L (3.5-5.1); Sodium Level 140 mmol/L (136-145)
--- NOTE | 2017-07-31 09:00 | ECHOTEE_ITS ---
Reason For Study: SOB, R/O Endocarditis Medication TIM probe passed with minimal difficulty. Cetacaine Topical Baker given X4 orally. Versed 2 mg given slow IVP. Fentanyl 50 mcg given slow IVP. Performed a rapid injection of agitated mix of 9 cc saline and 1cc air to assess for atrial septal defect. Left Ventricle Normal LV size. Post operative septal motion. The estimated ejection fraction is 50 %. No regional wall motion abnormalities noted. Right Ventricle Normal RV size. Normal systolic function. Atria Bubble contrast study negative for right to left interatrial shunt. The left atrium is moderately enlarged. Normal right atrium. Mitral Valve There is moderate to severe mitral annular calcification. Mild-Moderate (1-2+) eccentric mitral valve insufficiency. Tricuspid Valve Normal tricuspid valve. Mild to moderate (1-2+) tricuspid valve insufficiency. Aortic Valve Bioprosthetic aortic valve. Pulmonic Valve Normal pulmonic valve. Vessels Normal aortic root. The pulmonary artery is normal size. Pericardium No pericardial effusion. Interpretation Summary Normal LV size. Post operative septal motion. The estimated ejection fraction is 50 %. No regional wall motion abnormalities noted. The left atrium is moderately enlarged. There is moderate to severe mitral annular calcification. Mild-Moderate (1-2+) eccentric mitral valve insufficiency. No vegetation seen Ordering Physician: Michelle Espinal Referring Physician: Ravi Frye Performed By: Anahi Del Cid RDCS
[2017-07-31] MEDS: Labetalol 100 MG Tablet PO ×2 (11:09→21:45)
[2017-07-31] MEDS: Docusate Sodium 100 MG Capsule PO (11:09)
[2017-07-31] MEDS: Multivitamins,Therapeutic Tablet 1 TABLET PO (11:09)
[2017-07-31] MEDS: dilTIAZem CD 180 MG Capsule PO ×2 (11:09→21:45)
[2017-07-31] MEDS: Ascorbic Acid 500 MG Tablet 1000 MG PO (12:02)
--- NOTE | 2017-07-31 14:24 | PCM.PROGNOTE ---
<Oswaldo Donald - Last Filed: 07/31/17 14:24> Patient Problems: Active and Suspected Problems Bacteremia due to Enterococcus (Acute) Subjective: Pt reports no SOB, no further fevers or chills, mild intermittent non productive cough. No diarrhea, no dysuria, no wounds. He feels overall improved and has no specific complaints today. - Physical Exam General: Alert, Oriented x3, Cooperative HEENT: Atraumatic, PERRLA, EOMI, Normocephalic Neck: Supple, No JVD, Negative Carotid Bruits Lungs: Clear to auscultation, Normal air movement Cardiovascular: Regular rate, No murmurs Abdomen: Bowel Sounds Present, Soft, Non Tender Extremities: No edema, Capillary Refill Less than 3 Seconds Skin: No rashes, No breakdown Musculoskeletal: No Tenderness to Palpation of Joints or Extremities Neurological: Cranial nerves II-XII grossly intact Psych/Mental Status: Normal Affect, Appropriate, Alert and oriented to time, place, person, mood and affect Vital Signs Temp Pulse Resp BP Pulse Ox 97.5 F L 66 16 159/71 H 96 07/31/17 12:40 07/31/17 12:40 07/31/17 12:40 07/31/17 12:40 07/31/17 12:40 Oxygen Flow Rate 2 Oxygen Delivery Method Room Air Weight: 97.2 kg Body Mass Index (BMI) 30.7 Intake and Output for Last 24 Hours 07/29/17 07/30/17 07/31/17 23:59 23:59 23:59 Intake Total 518 / 518 2718 / 2718 1424 / 1424 Output Total 400 / 400 2500 / 2500 2900 / 2900 Balance 118 / 118 218 / 218 -1476 / -1476 Microbiology Past 72 Hours 07/29/17 15:46 Urine Culture - Preliminary Urine, Clean Catch Culture exhibits no growth. 07/29/17 16:21 Blood Culture - Final Blood Culture (Wb) - Right Hand GPC Poss Enterococcus sp 07/29/17 16:21 Blood Culture - Final Blood Culture (Wb) #2 - Anticubital Right GPC Poss Enterococcus sp Laboratory Tests Past 24 Hrs 07/31/17 07/31/17 06:32 06:32 WBC 5.6 RBC 3.12 L Hgb 8.7 L Hct 27.3 L MCV 87.5 MCH 27.9 MCHC 31.9 L RDW 14.8 H RDW Differential 46.1 H Plt Count 108 L MPV 9.8 Immature Gran % (Auto) 0.200 Neut % (Auto) 64.3 Lymph % (Auto) 12.7 L [place] % (Auto) 16.5 H Eos % (Auto) 5.9 H Baso % (Auto) 0.4 Absolute Neuts (auto) 3.6 Absolute Lymphs (auto) 0.71 L Total Counted Not Reportable Sodium 140 Potassium 3.7 Chloride 106 Carbon Dioxide 25.0 Anion Gap 9 BUN 50 H Creatinine 2.94 H Estim Creat Clear Calc 22.07 Est GFR (MDRD) Af Amer 27 L Est GFR (MDRD) Non-Af 22 L BUN/Creatinine Ratio 17.0 Glucose 120 H Calcium 8.1 L POC Glucose 07/30/17 16:43 POC Glucose 126 H Assessment/Plan Active and Suspected Problems Bacteremia due to Enterococcus (Acute) 1. Bacteremia - E faecalis - Pt appears nontoxic and relatively asymptomatic. Now afebrile. Outpatient blood cultures with E faecalis - not VRE - repeat blood cultures prelim showing enterococcus. Repeats drawn. suspect 2/2 recent bronchitis. No other clear source of infection. Not recently on abx. ID following. Continue Vanc/Unasyn per them. TIM is negative for vegatation - pt has bioprosthetic AV. Lactate negative. Elevated CRP, ESR normal. Flu neg. CXR negative. 2. T2DM - A1C controlled. Continue current regimen. 3. CAD - s/p CABG x 3 07/2015. Continue home meds 4. HTN - systolic remains in the 150's. Will add hydralazine. 5. Aortic stenosis - s/p bioprosthetic valve 6. CKD IV - slight increase in BUN/Cr. Will continue to follow closely, if worsens will plan to consult nephrology as his hx includes a solitary kidney s/p right nephrectomy for renal cancer. Follows Dr. Robledo in [place]. 7. Normocytic anemia - likely 2/2 CKDIV. 8. Mild thrombocytopenia - decreased from 129 to 108. avoid heparin products. DVT ppx: SCDs This patient was seen by Oswaldo Donald PA-C under the supervision of Doctor Espinal. <Michelle Espinal - Last Filed: 07/31/17 18:40> - Physical Exam Vital Signs Temp Pulse Resp BP Pulse Ox 97.5 F L 65 18 174/75 H 97 07/31/17 15:32 07/31/17 17:24 07/31/17 15:32 07/31/17 17:24 07/31/17 15:32 Oxygen Flow Rate 2 Oxygen Delivery Method Room Air Weight: 97.2 kg Body Mass Index (BMI) 30.7 Intake and Output for Last 24 Hours 07/29/17 07/30/17 07/31/17 23:59 23:59 23:59 Intake Total 518 / 518 2718 / 2718 1824 / 1824 Output Total 400 / 400 2500 / 2500 3300 / 3300 Balance 118 / 118 218 / 218 -1476 / -1476 Microbiology Past 72 Hours 07/29/17 15:46 Urine Culture - Preliminary Urine, Clean Catch Culture exhibits no growth. 07/29/17 16:21 Blood Culture - Final Blood Culture (Wb) - Right Hand GPC Poss Enterococcus sp 07/29/17 16:21 Blood Culture - Final Blood Culture (Wb) #2 - Anticubital Right GPC Poss Enterococcus sp Laboratory Tests Past 24 Hrs 07/31/17 07/31/17 06:32 06:32 WBC 5.6 RBC 3.12 L Hgb 8.7 L Hct 27.3 L MCV 87.5 MCH 27.9 MCHC 31.9 L RDW 14.8 H RDW Differential 46.1 H Plt Count 108 L MPV 9.8 Immature Gran % (Auto) 0.200 Neut % (Auto) 64.3 Lymph % (Auto) 12.7 L [place] % (Auto) 16.5 H Eos % (Auto) 5.9 H Baso % (Auto) 0.4 Absolute Neuts (auto) 3.6 Absolute Lymphs (auto) 0.71 L Total Counted Not Reportable Sodium 140 Potassium 3.7 Chloride 106 Carbon Dioxide 25.0 Anion Gap 9 BUN 50 H Creatinine 2.94 H Estim Creat Clear Calc 22.07 Est GFR (MDRD) Af Amer 27 L Est GFR (MDRD) Non-Af 22 L BUN/Creatinine Ratio 17.0 Glucose 120 H Calcium 8.1 L Assessment/Plan Was seen and examined independently of Oswaldo DAVE. History and physical exam as assessment and plan is as above Denies any active complaints, cultures growing possible enterococcus, TIM negative, will get repeat blood cultures Switch to ampicillin IV by ID, will continue to monitor patient Code Visit Inpatient E&M: 95881 Subs Hosp L2
--- NOTE | 2017-07-31 16:24 | PCM.PN.ID ---
Patient Problems: Active and Suspected Problems Bacteremia due to Enterococcus (Acute) Subjective: Feeling better, no fever. Had TIM this AM with no issues. No n/v/d. - Physical Exam General: Alert, Cooperative Lungs: Clear to auscultation, Normal air movement Cardiovascular: Regular rate, Regular Rhythm, Murmur - soft systolic Abdomen: Bowel Sounds Present, Soft, Non Tender, Non-Distended Skin: No rashes Vital Signs Temp Pulse Resp BP Pulse Ox 97.5 F L 66 18 182/85 H 97 07/31/17 15:32 07/31/17 15:32 07/31/17 15:32 07/31/17 15:32 07/31/17 15:32 Oxygen Flow Rate 2 Oxygen Delivery Method Room Air Weight: 97.2 kg Body Mass Index (BMI) 30.7 Intake and Output for Last 24 Hours 07/29/17 07/30/17 07/31/17 23:59 23:59 23:59 Intake Total 518 / 518 2718 / 2718 1424 / 1424 Output Total 400 / 400 2500 / 2500 2900 / 2900 Balance 118 / 118 218 / 218 -1476 / -1476 Microbiology Past 72 Hours 07/29/17 15:46 Urine Culture - Preliminary Urine, Clean Catch Culture exhibits no growth. 07/29/17 16:21 Blood Culture - Final Blood Culture (Wb) - Right Hand GPC Poss Enterococcus sp 07/29/17 16:21 Blood Culture - Final Blood Culture (Wb) #2 - Anticubital Right GPC Poss Enterococcus sp Laboratory Tests Past 24 Hrs 07/31/17 07/31/17 06:32 06:32 WBC 5.6 RBC 3.12 L Hgb 8.7 L Hct 27.3 L MCV 87.5 MCH 27.9 MCHC 31.9 L RDW 14.8 H RDW Differential 46.1 H Plt Count 108 L MPV 9.8 Immature Gran % (Auto) 0.200 Neut % (Auto) 64.3 Lymph % (Auto) 12.7 L [place] % (Auto) 16.5 H Eos % (Auto) 5.9 H Baso % (Auto) 0.4 Absolute Neuts (auto) 3.6 Absolute Lymphs (auto) 0.71 L Total Counted Not Reportable Sodium 140 Potassium 3.7 Chloride 106 Carbon Dioxide 25.0 Anion Gap 9 BUN 50 H Creatinine 2.94 H Estim Creat Clear Calc 22.07 Est GFR (MDRD) Af Amer 27 L Est GFR (MDRD) Non-Af 22 L BUN/Creatinine Ratio 17.0 Glucose 120 H Calcium 8.1 L POC Glucose 07/30/17 16:43 POC Glucose 126 H Route of nutrition/ use of supplements: [] Nutritional Intake: [] IV Site: [] [place] Catheter: [] - Assessment/Plan Antibiotics: [] Assessment/Plan: [] Enterococcus bacteremia - Fever to 101.9 initially, now much improved. No veg seen on TIM. On vanc and unasyn. No picc or midline until Bcx neg 48-72 hours. Stop vanc today. Narrow unasyn to ampicillin. Repeat bcx today. Plan on 2 week total course of ampicillin, start date is first set of neg bcx. 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
--- NOTE | 2017-07-31 18:56 | NURSING ---
Pt received all am. oral meds late because of procedure.
[2017-07-31 22:01] LABS: Bedside Glucose 104 mg/dL (70-110)
[2017-08-01] VITALS (11 sets, daily range): BP systolic 144–179; BP diastolic 67–86; PULSE 60–73; RESP 16–18; TEMP 36.6–36.8; O2SAT 96–100
[2017-08-01 06:31] LABS: Bedside Glucose 118 mg/dL (70-110)
[2017-08-01 07:39] LABS: Absolute Lymphocyte Count 0.97 X10^3/ul (0.83-4.51); Absolute Neutrophil Count 3.1 X10^3/uL (2.0-7.7); Basophil# 0.02 X10^3/uL; Basophil% 0.4 % (0-1); Eosinophil# 0.52 X10^3/uL; Hemoglobin 8.9 g/dl (13.0-16.5); Lymphocyte # 0.97 X10^3/ul (4.0); Lymphocyte % 18.6 % (19-41); Mean Corp Hgb Conc 31.8 g/gl (32-36); Mean Corpuscular Hgb 27.6 pg (27.0-32.0); Mean Platelet Vol. 9.6 fl (6.2-12.0); Monocyte# 0.63 X10^3/uL; Monocyte% 12.1 % (0-10); Neutrophil # 3.05 X10^3/uL (2.7-7.7); Neutrophil % 58.5 % (47-70); Platelet Count 124 K/mm3 (150-450); RBC Distribution Width CV 15.3 % (11.6-14.6); RBC Distribution Width SD 48.8 fl (35.1-43.9); Red Blood Count 3.22 M/mm3 (4.6-6.2); White Blood Count 5.2 K/mm3 (4.4-11.0)
[2017-08-01 07:52] LABS: POSITIVE COUNT NO; POSITIVE DIFFERENTIAL NO; POSITIVE MORPHOLOGY NO
--- NOTE | 2017-08-01 07:55 | NURSING ---
This nurse is aware of VS that were taken approx 116min ago by KAREN Conteh.
[2017-08-01 07:58] LABS: Anion Gap 10 (5-15); BUN 47 mg/dL (7-18); BUN/Creat Ratio 16.7 RATIO (10-20); Calcium,Total 8.4 mg/dL (8.5-10.1); Chloride 105 mmol/L (98-107); Creatinine, Serum 2.82 mg/dL (0.70-1.30); EST Glomerular Filtration Rate 23 mL/min (>60); Est Glom Filt Rate - Afr Amer 28 mL/min (>60); Estimated Creatinine Clearance 23.01 ml/min; Glucose 115 mg/dL (70-110); Potassium 3.8 mmol/L (3.5-5.1); Sodium Level 139 mmol/L (136-145)
[2017-08-01] MEDS: dilTIAZem CD 180 MG Capsule PO ×2 (09:20→21:21)
[2017-08-01] MEDS: Labetalol 100 MG Tablet PO ×2 (09:20→21:23)
[2017-08-01] MEDS: Docusate Sodium 100 MG Capsule PO (09:21)
[2017-08-01] MEDS: Multivitamins,Therapeutic Tablet 1 TABLET PO (09:21)
[2017-08-01] MEDS: Ascorbic Acid 500 MG Tablet 1000 MG PO (09:21)
--- NOTE | 2017-08-01 09:35 | PCM.PN.HOSP ---
Patient Problems: Active and Suspected Problems Bacteremia due to Enterococcus (Acute) Vitals/I&O's: Vital Signs Temp Pulse Resp BP Pulse Ox 97.9 F 66 16 144/67 H 96 08/01/17 05:58 08/01/17 06:10 08/01/17 05:58 08/01/17 05:58 08/01/17 05:58 Oxygen Flow Rate 2 Oxygen Delivery Method Room Air Weight: 97.2 kg Body Mass Index (BMI) 30.7 Intake and Output for Last 24 Hours 07/30/17 07/31/17 08/01/17 23:59 23:59 23:59 Intake Total 2718 / 2718 1824 / 1824 914 / 914 Output Total 2500 / 2500 3300 / 3300 800 / 800 Balance 218 / 218 -1476 / -1476 114 / 114 Microbiology Past 72 Hours 07/29/17 15:46 Urine, Clean Catch Urine Culture - Preliminary Culture exhibits no growth. 07/29/17 16:21 Blood Culture (Wb) - Right Hand Blood Culture - Final GPC Poss Enterococcus sp 07/29/17 16:21 Blood Culture (Wb) #2 - Anticubital Right Blood Culture - Final GPC Poss Enterococcus sp Laboratory Results 07/31/17 21:51: POC Glucose 104 08/01/17 06:01: POC Glucose 118 H 08/01/17 07:00: WBC 5.2, RBC 3.22 L, Hgb 8.9 L, Hct 28.0 L, MCV 87.0, MCH 27.6, MCHC 31.8 L, RDW 15.3 H, RDW Differential 48.8 H, Plt Count 124 L, MPV 9.6, Immature Gran % (Auto) 0.400, Neut % (Auto) 58.5, Lymph % (Auto) 18.6 L, [place] % (Auto) 12.1 H, Eos % (Auto) 10.0 H, Baso % (Auto) 0.4, Absolute Neuts (auto) 3.1, Absolute Lymphs (auto) 0.97, Total Counted Not Reportable 08/01/17 07:00: Sodium 139, Potassium 3.8, Chloride 105, Carbon Dioxide 24.0, Anion Gap 10, BUN 47 H, Creatinine 2.82 H, Estim Creat Clear Calc 23.01, Est GFR (MDRD) Af Amer 28 L, Est GFR (MDRD) Non-Af 23 L, BUN/Creatinine Ratio 16.7, Glucose 115 H, Calcium 8.4 L Current Medications Al Hydroxide/Mg Hydroxide (Mylanta Ii) 30 ml PO Q6H PRN PRN PRN Reason: Gastric Burning Ascorbic Acid (Vitamin C) 1,000 mg PO DAILY@0800 [facility] Last Admin: 08/01/17 09:21 Dose: 1,000 mg Bisacodyl (Dulcolax) 10 mg RECTAL DAILY PRN PRN PRN Reason: Constipation Diltiazem HCl (Cardizem Cd) 180 mg PO BID [facility] Last Admin: 08/01/17 09:20 Dose: 180 mg Docusate Sodium (Colace) 100 mg PO DAILY [facility] Last Admin: 08/01/17 09:21 Dose: 100 mg Guaifenesin (Robitussin Dm) 10 ml PO Q6H PRN PRN PRN Reason: COUGH Hydralazine HCl (Apresoline) 10 mg PO TID [facility] Last Admin: 08/01/17 06:10 Dose: 10 mg Ampicillin Sodium 2 gm/ Sodium (Chloride) 100 mls @ 150 mls/hr IV Q12 [facility] Last Admin: 07/31/17 23:17 Dose: 150 mls/hr Labetalol HCl (Trandate) 100 mg PO BID [facility] Last Admin: 08/01/17 09:20 Dose: 100 mg Multivitamins (Multivitamin) 1 tablet PO DAILY@0800 [facility] Last Admin: 08/01/17 09:21 Dose: 1 tablet Nateglinide (Starlix) 30 mg PO TIDAC [facility] Last Admin: 08/01/17 09:21 Dose: 30 mg Ondansetron HCl (Zofran) 4 mg IV Q8H PRN PRN PRN Reason: Nausea Assessment/Plan Active and Suspected Problems Bacteremia due to Enterococcus (Acute)
[2017-08-01 11:31] LABS: Bedside Glucose 191 mg/dL (70-110)
--- NOTE | 2017-08-01 13:49 | PCM.PROGNOTE ---
<Oswaldo Donald - Last Filed: 08/01/17 13:49> Patient Problems: Active and Suspected Problems Bacteremia due to Enterococcus (Acute) Subjective: Pt has no fever/chills, has no SOB or cough, no abdominal pain, nausea, vomiting, diarrhea. He is resting comfortably in bed. He has been ambulatory with no difficulties. He is functional in the room with no complaints. He has been up and showering, with no problems. is present at bedside. - Physical Exam General: Alert, Oriented x3, Cooperative HEENT: Atraumatic, PERRLA, EOMI, Normocephalic Neck: Supple, No JVD, Negative Carotid Bruits Lungs: Clear to auscultation, Normal air movement Cardiovascular: Regular rate, No murmurs Abdomen: Bowel Sounds Present, Soft, Non Tender Extremities: No edema, Capillary Refill Less than 3 Seconds Skin: No rashes, No breakdown Musculoskeletal: No Tenderness to Palpation of Joints or Extremities Neurological: Cranial nerves II-XII grossly intact Psych/Mental Status: Normal Affect, Appropriate, Alert and oriented to time, place, person, mood and affect Vital Signs Temp Pulse Resp BP Pulse Ox 97.9 F 66 16 144/67 H 96 08/01/17 05:58 08/01/17 06:10 08/01/17 05:58 08/01/17 05:58 08/01/17 05:58 Oxygen Flow Rate 2 Oxygen Delivery Method Room Air Weight: 97.2 kg Body Mass Index (BMI) 30.7 Intake and Output for Last 24 Hours 07/30/17 07/31/17 08/01/17 23:59 23:59 23:59 Intake Total 2718 / 2718 1824 / 1824 914 / 914 Output Total 2500 / 2500 3300 / 3300 800 / 800 Balance 218 / 218 -1476 / -1476 114 / 114 Microbiology Past 72 Hours 07/29/17 15:46 Urine Culture - Final Urine, Clean Catch Culture exhibits no growth. 07/29/17 16:21 Blood Culture - Final Blood Culture (Wb) - Right Hand GPC Poss Enterococcus sp 07/29/17 16:21 Blood Culture - Final Blood Culture (Wb) #2 - Anticubital Right GPC Poss Enterococcus sp Laboratory Tests Past 24 Hrs 08/01/17 08/01/17 07:00 07:00 WBC 5.2 RBC 3.22 L Hgb 8.9 L Hct 28.0 L MCV 87.0 MCH 27.6 MCHC 31.8 L RDW 15.3 H RDW Differential 48.8 H Plt Count 124 L MPV 9.6 Immature Gran % (Auto) 0.400 Neut % (Auto) 58.5 Lymph % (Auto) 18.6 L [place] % (Auto) 12.1 H Eos % (Auto) 10.0 H Baso % (Auto) 0.4 Absolute Neuts (auto) 3.1 Absolute Lymphs (auto) 0.97 Total Counted Not Reportable Sodium 139 Potassium 3.8 Chloride 105 Carbon Dioxide 24.0 Anion Gap 10 BUN 47 H Creatinine 2.82 H Estim Creat Clear Calc 23.01 Est GFR (MDRD) Af Amer 28 L Est GFR (MDRD) Non-Af 23 L BUN/Creatinine Ratio 16.7 Glucose 115 H Calcium 8.4 L POC Glucose 08/01/17 08/01/17 07/31/17 11:20 06:01 21:51 POC Glucose 191 H 118 H 104 Assessment/Plan Active and Suspected Problems Bacteremia due to Enterococcus (Acute) 1. Bacteremia - E faecalis - Pt appears nontoxic and relatively asymptomatic. Now afebrile. Outpatient blood cultures with E faecalis - not VRE - repeat blood cultures prelim showing enterococcus. Repeats drawn. suspect 2/2 recent bronchitis. No other clear source of infection. Not recently on abx. ID following. -ID has de-escalated abx to ampicillin. He will need to continue this as outpatient for 2 weeks from draw of negative blood cx -No DC or midline placement until blood cultures negative for 48-72 hours. -TIM negative 2. T2DM - A1C controlled. Continue current regimen. 3. CAD - s/p CABG x 3 07/2015. Continue home meds 4. HTN - systolic remains in the 150's. Will add hydralazine. 5. Aortic stenosis - s/p bioprosthetic valve 6. CKD IV - stable. Will continue to follow closely, if worsens will plan to consult nephrology as his hx includes a solitary kidney s/p right nephrectomy for renal cancer. Follows Dr. Robledo in [place]. 7. Normocytic anemia - likely 2/2 CKDIV. 8. Mild thrombocytopenia - improved DVT ppx: SCDs DC planning: once blood cultures negative x48-72 hours, place PICC line and DC with ampicillin current regimen for 14 days total therapy. This patient was seen by Oswaldo Donald PA-C under the supervision of Doctor Kylie. <Michelle Espinal - Last Filed: 08/01/17 14:27> - Physical Exam Vital Signs Temp Pulse Resp BP Pulse Ox 97.9 F 60 16 144/67 H 96 08/01/17 05:58 08/01/17 13:40 08/01/17 05:58 08/01/17 05:58 08/01/17 05:58 Oxygen Flow Rate 2 Oxygen Delivery Method Room Air Weight: 97.2 kg Body Mass Index (BMI) 30.7 Intake and Output for Last 24 Hours 07/30/17 07/31/17 08/01/17 23:59 23:59 23:59 Intake Total 2718 / 2718 1824 / 1824 914 / 914 Output Total 2500 / 2500 3300 / 3300 800 / 800 Balance 218 / 218 -1476 / -1476 114 / 114 Microbiology Past 72 Hours 07/29/17 15:46 Urine Culture - Final Urine, Clean Catch Culture exhibits no growth. 07/29/17 16:21 Blood Culture - Final Blood Culture (Wb) - Right Hand GPC Poss Enterococcus sp 07/29/17 16:21 Blood Culture - Final Blood Culture (Wb) #2 - Anticubital Right GPC Poss Enterococcus sp Laboratory Tests Past 24 Hrs 08/01/17 08/01/17 07:00 07:00 WBC 5.2 RBC 3.22 L Hgb 8.9 L Hct 28.0 L MCV 87.0 MCH 27.6 MCHC 31.8 L RDW 15.3 H RDW Differential 48.8 H Plt Count 124 L MPV 9.6 Immature Gran % (Auto) 0.400 Neut % (Auto) 58.5 Lymph % (Auto) 18.6 L [place] % (Auto) 12.1 H Eos % (Auto) 10.0 H Baso % (Auto) 0.4 Absolute Neuts (auto) 3.1 Absolute Lymphs (auto) 0.97 Total Counted Not Reportable Sodium 139 Potassium 3.8 Chloride 105 Carbon Dioxide 24.0 Anion Gap 10 BUN 47 H Creatinine 2.82 H Estim Creat Clear Calc 23.01 Est GFR (MDRD) Af Amer 28 L Est GFR (MDRD) Non-Af 23 L BUN/Creatinine Ratio 16.7 Glucose 115 H Calcium 8.4 L POC Glucose 08/01/17 08/01/17 07/31/17 11:20 06:01 21:51 POC Glucose 191 H 118 H 104 Assessment/Plan Was seen and examined independently of Oswaldo DAVE. History and physical exam as assessment and plan is as above Denies any active complaints, cultures growing possible enterococcus, TIM negative, repeat blood cultures is pending On ampicillin IV by ID, will continue to monitor patient. PICC line when cultures are negative x 24 hrs Code Visit Inpatient E&M: 92466 Subs Hosp L2
[2017-08-01 17:26] LABS: Bedside Glucose 102 mg/dL (70-110)
[2017-08-02] VITALS (11 sets, daily range): BP systolic 138–168; BP diastolic 63–88; PULSE 58–81; RESP 16–20; TEMP 36.4–36.9; O2SAT 97–100
[2017-08-02 06:41] LABS: Anion Gap 9 (5-15); BUN 47 mg/dL (7-18); BUN/Creat Ratio 16.9 RATIO (10-20); Calcium,Total 8.2 mg/dL (8.5-10.1); Chloride 107 mmol/L (98-107); Creatinine, Serum 2.78 mg/dL (0.70-1.30); EST Glomerular Filtration Rate 24 mL/min (>60); Est Glom Filt Rate - Afr Amer 29 mL/min (>60); Estimated Creatinine Clearance 23.34 ml/min; Glucose 105 mg/dL (70-110); Potassium 3.9 mmol/L (3.5-5.1); Sodium Level 140 mmol/L (136-145)
[2017-08-02] MEDS: Labetalol 100 MG Tablet PO ×2 (08:41→17:43)
[2017-08-02] MEDS: Docusate Sodium 100 MG Capsule PO (08:41)
[2017-08-02] MEDS: dilTIAZem CD 180 MG Capsule PO ×2 (08:42→17:43)
[2017-08-02] MEDS: Ascorbic Acid 500 MG Tablet 1000 MG PO (08:42)
[2017-08-02] MEDS: Multivitamins,Therapeutic Tablet 1 TABLET PO (08:42)
--- NOTE | 2017-08-02 12:08 | PCM.PROGNOTE ---
<Oswaldo Donald - Last Filed: 08/02/17 12:08> Patient Problems: Active and Suspected Problems Bacteremia due to Enterococcus (Acute) Subjective: Resting comfortably no complaints. No F/C/cough/SOB. - Physical Exam General: Alert, Oriented x3, Cooperative HEENT: Atraumatic, PERRLA, EOMI, Normocephalic Neck: Supple, No JVD, Negative Carotid Bruits Lungs: Clear to auscultation, Normal air movement Cardiovascular: Regular rate, No murmurs Abdomen: Bowel Sounds Present, Soft, Non Tender Extremities: No edema, Capillary Refill Less than 3 Seconds Skin: No rashes, No breakdown Musculoskeletal: No Tenderness to Palpation of Joints or Extremities Neurological: Cranial nerves II-XII grossly intact Psych/Mental Status: Normal Affect, Appropriate, Alert and oriented to time, place, person, mood and affect Vital Signs Temp Pulse Resp BP Pulse Ox 97.9 F 81 16 138/88 H 100 08/02/17 08:35 08/02/17 09:05 08/02/17 08:35 08/02/17 08:35 08/02/17 08:35 Oxygen Flow Rate 2 Oxygen Delivery Method Room Air Weight: 97.2 kg Body Mass Index (BMI) 30.7 Intake and Output for Last 24 Hours 07/31/17 08/01/17 08/02/17 23:59 23:59 23:59 Intake Total 1824 / 1824 1914 / 1914 Output Total 3300 / 3300 2200 / 2200 1400 / 1400 Balance -1476 / -1476 -286 / -286 -1400 / -1400 Microbiology Past 72 Hours 07/31/17 11:36 Blood Culture - Preliminary Blood Culture (Wb) - Anticubital Right No growth in 48 hours. 07/31/17 11:36 Blood Culture - Preliminary Blood Culture (Wb) - Anticubital Right No growth in 48 hours. 07/29/17 15:46 Urine Culture - Final Urine, Clean Catch Culture exhibits no growth. 07/29/17 16:21 Blood Culture - Final Blood Culture (Wb) - Right Hand GPC Poss Enterococcus sp 07/29/17 16:21 Blood Culture - Final Blood Culture (Wb) #2 - Anticubital Right GPC Poss Enterococcus sp Laboratory Tests Past 24 Hrs 08/02/17 05:35 Sodium 140 Potassium 3.9 Chloride 107 Carbon Dioxide 24.0 Anion Gap 9 BUN 47 H Creatinine 2.78 H Estim Creat Clear Calc 23.34 Est GFR (MDRD) Af Amer 29 L Est GFR (MDRD) Non-Af 24 L BUN/Creatinine Ratio 16.9 Glucose 105 Calcium 8.2 L POC Glucose 08/01/17 16:28 POC Glucose 102 Assessment/Plan Active and Suspected Problems Bacteremia due to Enterococcus (Acute) 1. Bacteremia - E faecalis - Pt appears nontoxic and relatively asymptomatic. afebrile. Outpatient blood cultures with E faecalis - not VRE - repeat blood cultures prelim showing enterococcus. Repeats drawn. suspect 2/2 recent bronchitis. No other clear source of infection. Not recently on abx. ID following. -ID has de-escalated abx to ampicillin. He will need to continue this as outpatient for 2 weeks from draw of negative blood cx -No DC or midline placement until blood cultures negative for 48-72 hours. -TIM negative -latest cultures ntd x 48hrs 2. T2DM - A1C controlled. Continue current regimen. 3. CAD - s/p CABG x 3 07/2015. Continue home meds 4. HTN - systolic remains in the 150's. Will add hydralazine. 5. Aortic stenosis - s/p bioprosthetic valve 6. CKD IV - stable. Will continue to follow closely, if worsens will plan to consult nephrology as his hx includes a solitary kidney s/p right nephrectomy for renal cancer. Follows Dr. Robledo in [place]. 7. Normocytic anemia - likely 2/2 CKDIV. 8. Mild thrombocytopenia - improved DVT ppx: SCDs DC planning: once blood cultures negative x48-72 hours, place PICC line and DC with ampicillin current regimen for 14 days total therapy. This patient was seen by Oswaldo Donald PA-C under the supervision of Doctor Espinal. <Michelle Espinal - Last Filed: 08/02/17 15:39> - Physical Exam Vital Signs Temp Pulse Resp BP Pulse Ox 98.4 F 69 20 H 168/88 H 100 08/02/17 14:05 08/02/17 14:05 08/02/17 14:05 08/02/17 14:05 08/02/17 14:05 Oxygen Flow Rate 2 Oxygen Delivery Method Room Air Weight: 97.2 kg Body Mass Index (BMI) 30.7 Intake and Output for Last 24 Hours 07/31/17 08/01/17 08/02/17 23:59 23:59 23:59 Intake Total 1824 / 1824 1914 / 1914 420 / 420 Output Total 3300 / 3300 2200 / 2200 1999 Balance -1476 / -1476 -286 / -286 -1580 / -1580 Microbiology Past 72 Hours 07/31/17 11:36 Blood Culture - Preliminary Blood Culture (Wb) - Anticubital Right No growth in 48 hours. 07/31/17 11:36 Blood Culture - Preliminary Blood Culture (Wb) - Anticubital Right No growth in 48 hours. 07/29/17 15:46 Urine Culture - Final Urine, Clean Catch Culture exhibits no growth. 07/29/17 16:21 Blood Culture - Final Blood Culture (Wb) - Right Hand GPC Poss Enterococcus sp 07/29/17 16:21 Blood Culture - Final Blood Culture (Wb) #2 - Anticubital Right GPC Poss Enterococcus sp Laboratory Tests Past 24 Hrs 08/02/17 05:35 Sodium 140 Potassium 3.9 Chloride 107 Carbon Dioxide 24.0 Anion Gap 9 BUN 47 H Creatinine 2.78 H Estim Creat Clear Calc 23.34 Est GFR (MDRD) Af Amer 29 L Est GFR (MDRD) Non-Af 24 L BUN/Creatinine Ratio 16.9 Glucose 105 Calcium 8.2 L POC Glucose 08/02/17 08/01/17 12:03 16:28 POC Glucose 144 H 102 Assessment/Plan Patient seen and examined independently. Interval hx and physical exam as above. ROS is negative. Noted blood cultures are negative x 48 hrs. Will have PICC line placed tomorrow if blood cultures were negative. Continue IV ampicillin. Code Visit Inpatient E&M: 75434 Subs Hosp L2
[2017-08-02 12:11] LABS: Bedside Glucose 144 mg/dL (70-110)
[2017-08-02 16:56] LABS: Bedside Glucose 110 mg/dL (70-110)
[2017-08-03] VITALS (14 sets, daily range): BP systolic 145–182; BP diastolic 77–86; PULSE 62–90; RESP 18; TEMP 36.5–36.9; O2SAT 97–100
[2017-08-03 06:36] LABS: Bedside Glucose 111 mg/dL (70-110)
[2017-08-03 06:51] LABS: Anion Gap 9 (5-15); BUN 46 mg/dL (7-18); BUN/Creat Ratio 15.5 RATIO (10-20); Calcium,Total 8.5 mg/dL (8.5-10.1); Chloride 106 mmol/L (98-107); Creatinine, Serum 2.97 mg/dL (0.70-1.30); EST Glomerular Filtration Rate 22 mL/min (>60); Est Glom Filt Rate - Afr Amer 27 mL/min (>60); Estimated Creatinine Clearance 21.85 ml/min; Glucose 112 mg/dL (70-110); Potassium 3.8 mmol/L (3.5-5.1); Sodium Level 139 mmol/L (136-145)
[2017-08-03] MEDS: Multivitamins,Therapeutic Tablet 1 TABLET PO (08:04)
[2017-08-03] MEDS: Ascorbic Acid 500 MG Tablet 1000 MG PO (08:04)
[2017-08-03] MEDS: dilTIAZem CD 180 MG Capsule PO ×2 (09:38→22:01)
[2017-08-03] MEDS: Docusate Sodium 100 MG Capsule PO (09:38)
--- NOTE | 2017-08-03 10:54 | CASEMGMT ---
KAREN CHAVEZ received script from Dr. Alvarado regarding IV ATBs for at discharge. KAREN CHAVEZ discussed with patient and patient's regarding need for IV ATBs at discharge. KAREN CHAVEZ explained patient's options for home with [facility] or to SNF for IV ATS to patient and the . The stated that she was not comfortable with learning how to administer IV ATBs. was also adamant that patient would not be discharging to SNF. KAREN CHAVEZ explained that [facility] nurse would only be able to come once a day and IV ATB is ordered twice daily. KAREN CHAVEZ also explained that [facility] nursing would be educating on proper administration and would be available oncall. Patient and agreeable to discharge home with HHC and IV ATBs. Patient states he lives in [place] in [place] [facility] and stated he had no preference for HHC and was agreeable to [facility]. KAREN CHAVEZ made referral to [facility] and am awaiting call back for acceptance. KAREN CHAVEZ also sent referral to [facility] for IV ATBs and supplies. KAREN CHAVEZ will continue to follow this patient and plan for safe discharge.
[2017-08-03 10:56] LABS: Bedside Glucose 126 mg/dL (70-110)
--- NOTE | 2017-08-03 11:00 | PCM.PN.ID ---
Patient Problems: Active and Suspected Problems Bacteremia due to Enterococcus (Acute) Subjective: Feeling good, no fever, no n/v/d. No rash with iv abx. - Physical Exam General: Alert, Cooperative, No apparent distress Lungs: Clear to auscultation, Normal air movement Cardiovascular: Regular rate, Regular Rhythm, Murmur Abdomen: Soft, Non Tender, Non-Distended Skin: No rashes Vital Signs Temp Pulse Resp BP Pulse Ox 97.7 F L 73 18 176/79 H 99 08/03/17 09:26 08/03/17 10:00 08/03/17 09:26 08/03/17 09:26 08/03/17 09:26 Oxygen Flow Rate 2 Oxygen Delivery Method Room Air Weight: 97.2 kg Body Mass Index (BMI) 30.7 Intake and Output for Last 24 Hours 08/01/17 08/02/17 08/03/17 23:59 23:59 23:59 Intake Total 1914 / 1914 1220 / 1220 1735 / 1735 Output Total 2200 / 2200 2500 / 2500 2700 / 2700 Balance -286 / -286 -1280 / -1280 -965 / -965 Microbiology Past 72 Hours 08/01/17 08:00 Blood Culture - Preliminary Blood Culture (Wb) - Anticubital Left No growth in 48 hours. 07/31/17 11:36 Blood Culture - Preliminary Blood Culture (Wb) - Anticubital Right No growth in 48 hours. 07/31/17 11:36 Blood Culture - Preliminary Blood Culture (Wb) - Anticubital Right No growth in 48 hours. 07/29/17 15:46 Urine Culture - Final Urine, Clean Catch Culture exhibits no growth. 07/29/17 16:21 Blood Culture - Final Blood Culture (Wb) - Right Hand GPC Poss Enterococcus sp 07/29/17 16:21 Blood Culture - Final Blood Culture (Wb) #2 - Anticubital Right GPC Poss Enterococcus sp Laboratory Tests Past 24 Hrs 08/03/17 06:02 Sodium 139 Potassium 3.8 Chloride 106 Carbon Dioxide 24.0 Anion Gap 9 BUN 46 H Creatinine 2.97 H Estim Creat Clear Calc 21.85 Est GFR (MDRD) Af Amer 27 L Est GFR (MDRD) Non-Af 22 L BUN/Creatinine Ratio 15.5 Glucose 112 H Calcium 8.5 POC Glucose 0108/03/17 08/02/17 10:43 06:26 16:47 POC Glucose 126 H 111 H 110 08/02/17 12:03 POC Glucose 144 H Route of nutrition/ use of supplements: [] Nutritional Intake: [] IV Site: [] Irving Catheter: [] - Assessment/Plan Antibiotics: [] Assessment/Plan: [] Enterococcus bacteremia - Fever to 101.9 initially, now much improved. No veg seen on TIM. On unasyn. Bcx clear since 07/31. Plan on 2 week total course of ampicillin, start date is first set of neg bcx, so stop date is 08/14/17. Weekly bmp and cbc while on iv abx. Ordered midline which is not ideal for his CKD but limited other options; given his prosthetic valve want to make sure he has a successful treatment course with IV abx. CKD - stable Will follow, d/w top case assembler.
[2017-08-03] MEDS: Labetalol 100 MG Tablet PO ×2 (11:19→22:01)
--- NOTE | 2017-08-03 13:06 | CASEMGMT ---
KAREN CHAVEZ received call back from Marisol at [facility] and they are able to take the patient. KAREN CHAVEZ also received call from Eloise for [facility] requesting additional insurance information. KAREN CHAVEZ updated the patient and regarding [facility] able to take the patient. KAREN CHAVEZ also inquired regarding additional insurance information. provided KAREN CHAVEZ with [place] supplemental insurance card and copies made. KAREN CHAVEZ faxed insurance information to [facility] and am awaiting call back.
--- NOTE | 2017-08-03 14:34 | PCM.PN.HOSP ---
Patient Problems: Active and Suspected Problems Bacteremia due to Enterococcus (Acute) Subjective: Patient is a 76-year-old gentleman with multiple comorbidities admitted with progressive generalized weakness and fever of 1 week duration. Blood cultures obtained as part of patient evaluation came back positive for enterococcus. Specific source of his bacteremia was not clear. Patient underwent subsequent evaluation with TIM which was unremarkable for vegetation. Patient has been seen in consultation by infectious disease and plan is for patient to be discharged home on ampicillin was case management is able to set up his home IV antibiotics Objective: GENERAL: cooperative HEENT: Clear conjunctiva, NECK; supple, normal thyroid, CHEST: Diminished to auscultation bilaterally, HEART: Regular S1 S2, no audible murmurs ABDOMEN: soft, non-tender, normoactive bowel sounds, RECTAL: deferred EXTREMITIES: No clubbing, no cyanosis. AUDIO INSTALLER: Awake, no lateralizing signs. SKIN: No rash Vitals/I&O's: Vital Signs Temp Pulse Resp BP Pulse Ox 98.4 F 71 18 145/85 H 97 08/03/17 13:37 08/03/17 13:52 08/03/17 13:37 08/03/17 13:52 08/03/17 13:37 Oxygen Flow Rate 2 Oxygen Delivery Method Room Air Weight: 97.2 kg Body Mass Index (BMI) 30.7 Intake and Output for Last 24 Hours 08/01/17 08/02/17 08/03/17 23:59 23:59 23:59 Intake Total 1914 / 1914 1220 / 1220 1735 / 1735 Output Total 2200 / 2200 2500 / 2500 2700 / 2700 Balance -286 / -286 -1280 / -1280 -965 / -965 Microbiology Past 72 Hours 08/01/17 08:00 Blood Culture (Wb) - Anticubital Left Blood Culture - Preliminary No growth in 48 hours. 07/31/17 11:36 Blood Culture (Wb) - Anticubital Right Blood Culture - Preliminary No growth in 48 hours. 07/31/17 11:36 Blood Culture (Wb) - Anticubital Right Blood Culture - Preliminary No growth in 48 hours. 07/29/17 15:46 Urine, Clean Catch Urine Culture - Final Culture exhibits no growth. Laboratory Results 08/02/17 16:47: POC Glucose 110 08/03/17 06:02: Sodium 139, Potassium 3.8, Chloride 106, Carbon Dioxide 24.0, Anion Gap 9, BUN 46 H, Creatinine 2.97 H, Estim Creat Clear Calc 21.85, Est GFR (MDRD) Af Amer 27 L, Est GFR (MDRD) Non-Af 22 L, BUN/Creatinine Ratio 15.5, Glucose 112 H, Calcium 8.5 08/03/17 06:26: POC Glucose 111 H 08/03/17 10:43: POC Glucose 126 H Current Medications Al Hydroxide/Mg Hydroxide (Mylanta Ii) 30 ml PO Q6H PRN PRN PRN Reason: Gastric Burning Ascorbic Acid (Vitamin C) 1,000 mg PO DAILY@0800 [facility] Last Admin: 08/03/17 08:04 Dose: 1,000 mg Bisacodyl (Dulcolax) 10 mg RECTAL DAILY PRN PRN PRN Reason: Constipation Diltiazem HCl (Cardizem Cd) 180 mg PO BID [facility] Last Admin: 08/03/17 09:38 Dose: 180 mg Docusate Sodium (Colace) 100 mg PO DAILY [facility] Last Admin: 08/03/17 09:38 Dose: 100 mg Guaifenesin (Robitussin Dm) 10 ml PO Q6H PRN PRN PRN Reason: COUGH Hydralazine HCl (Apresoline) 10 mg PO TID [facility] Last Admin: 08/03/17 13:52 Dose: 10 mg Ampicillin Sodium 2 gm/ Sodium (Chloride) 100 mls @ 150 mls/hr IV Q12 [facility] Last Admin: 08/03/17 12:04 Dose: 150 mls/hr Labetalol HCl (Trandate) 100 mg PO BID [facility] Last Admin: 08/03/17 11:19 Dose: 100 mg Multivitamins (Multivitamin) 1 tablet PO DAILY@0800 [facility] Last Admin: 08/03/17 08:04 Dose: 1 tablet Nateglinide (Starlix) 30 mg PO TIDAC [facility] Last Admin: 08/03/17 12:04 Dose: 30 mg Ondansetron HCl (Zofran) 4 mg IV Q8H PRN PRN PRN Reason: Nausea Assessment/Plan Active and Suspected Problems Bacteremia due to Enterococcus (Acute) Patient is a 76-year-old gentleman with multiple comorbidities admitted with progressive generalized weakness and fever of 1 week duration. Blood cultures obtained as part of patient evaluation came back positive for enterococcus. Specific source of his bacteremia was not clear. Patient underwent subsequent evaluation with TIM which was unremarkable for vegetation. Patient has been seen in consultation by infectious disease and plan is for patient to be discharged home on ampicillin was case management is able to set up his home IV antibiotics Generalized weakness and fever for about 1 week 1. Enterococcal bacteremia of undetermined etiology. Patient managed with broad-spectrum antibiotic therapy. Underwent subsequent evaluation with TIM which was negative for endocarditis. Patient was also seen in consultation by Dr. Alvarado with infectious disease recommended treating patient with ampicillin for 2 weeks 2. History of aortic valve stenosis status post aortic valve replacement with bioprosthetic materia 3. History of renal cell carcinoma status post nephrectomy on January 13, 2016 at [facility] 4. Diabetes mellitus type 2 with complications including diabetic nephropathy. Patient is on Starlix did continue in addition to Accu-Cheks before meals and at bedtime with sliding scale coverage 5. Hypertension-blood pressure controlled, home medications continued with dose adjustment as needed 6. CAD with previous CABG. Had triple bypass in January [address] [facility] in [place] 7. Chronic kidney disease stage IV patient is followed by a company secretary in [facility] 8. Anemia secondary to anemia of chronic kidney disease monitoring H&H with plans to transfuse if patient becomes symptomatic or hemoglobin falls below 7 9. DVT prophylaxis avoided chemoprophylaxis in view of patient trouble cytopenia which appears to be improving in any case Code Visit Inpatient E&M: 06699 Subs Hosp L2
--- NOTE | 2017-08-03 16:00 | CASEMGMT ---
KAREN CHAVEZ received call back from Eloise stating she received additional information and will work on financial information and would follow-up in morning. KAREN CHAVEZ updated the patient and . KAREN CHAVEZ updated charge nurse who updated Dr. Stein. Discharge planned for tomorrow. KAREN CHAVEZ will continue to follow-this patient and plan for a safe discharge.
[2017-08-03 16:26] LABS: Bedside Glucose 113 mg/dL (70-110)
[2017-08-03 22:05] LABS: Bedside Glucose 110 mg/dL (70-110)
[2017-08-04] VITALS (8 sets, daily range): BP systolic 162–168; BP diastolic 78–86; PULSE 61–74; RESP 16–18; TEMP 36.5–36.8; O2SAT 96–99
[2017-08-04 06:02] LABS: Hemoglobin 8.5 g/dl (13.0-16.5); Mean Corp Hgb Conc 31.5 g/gl (32-36); Mean Corpuscular Hgb 27.9 pg (27.0-32.0); Mean Corpuscular Volume 88.5 fL (80-94); Mean Platelet Vol. 9.2 fl (6.2-12.0); Platelet Count 187 K/mm3 (150-450); RBC Distribution Width CV 14.9 % (11.6-14.6); RBC Distribution Width SD 46.3 fl (35.1-43.9); Red Blood Count 3.05 M/mm3 (4.6-6.2); White Blood Count 7.4 K/mm3 (4.4-11.0)
[2017-08-04 06:11] LABS: Scan Indicated on CBC? Y/N NO
[2017-08-04 06:15] LABS: Anion Gap 9 (5-15); BUN 48 mg/dL (7-18); BUN/Creat Ratio 15.3 RATIO (10-20); Calcium,Total 8.5 mg/dL (8.5-10.1); Chloride 107 mmol/L (98-107); Creatinine, Serum 3.13 mg/dL (0.70-1.30); EST Glomerular Filtration Rate 21 mL/min (>60); Est Glom Filt Rate - Afr Amer 25 mL/min (>60); Estimated Creatinine Clearance 20.73 ml/min; Glucose 109 mg/dL (70-110); Potassium 4.1 mmol/L (3.5-5.1); Sodium Level 140 mmol/L (136-145)
[2017-08-04 06:56] LABS: Bedside Glucose 110 mg/dL (70-110)
[2017-08-04] MEDS: Labetalol 100 MG Tablet PO (08:27)
[2017-08-04] MEDS: Docusate Sodium 100 MG Capsule PO (08:28)
[2017-08-04] MEDS: dilTIAZem CD 180 MG Capsule PO (08:28)
[2017-08-04] MEDS: Ascorbic Acid 500 MG Tablet 1000 MG PO (08:28)
[2017-08-04] MEDS: Multivitamins,Therapeutic Tablet 1 TABLET PO (08:28)
--- NOTE | 2017-08-04 09:15 | DCINST_ITS ---
- Discharge Diagnoses Current Active Problems: Current Active and Chronic Problems Bacteremia due to Enterococcus (Acute) You will use the following diet at home:: Calorie/Carbohydrate Controlled ( specify 1200, 1400, etc) - 1800, Renal (restricted protein/sodium) Discharge Activity: Return to Normal Activity Allergies/Adverse Reactions: Allergies losartan potassium [From Cozaar] Allergy (Severe, Verified 07/29/17 10:25) Other valsartan [From Diovan HCT] Allergy (Severe, Verified 07/29/17 10:25) Other amlodipine besylate [From Norvasc] Allergy (Verified 07/29/17 10:25) Other doxazosin mesylate [From Cardura] Allergy (Verified 07/29/17 10:25) Other furosemide [From Lasix] Allergy (Verified 07/29/17 10:25) Other hydrochlorothiazide Allergy (Verified 07/29/17 10:25) Other metoprolol succinate [From Toprol XL] Allergy (Verified 07/29/17 10:25) Other simvastatin Allergy (Verified 07/29/17 10:25) Other oxycodone [From OxyIR] Adverse Reaction (Verified 07/29/17 10:25) Other Hydrogenated Vegetable Oil Adverse Reaction (Uncoded 07/29/17 13:53) Upset Stomach vicodin Adverse Reaction (Uncoded 07/29/17 10:25) Other Medications to take at Discharge Ascorbic Acid [Vitamin C] 1,000 mg PO DAILY@0800 02/06/16 Multivitamin [Daily Multiple Vitamin] 1 each PO DAILY 02/06/16 Nateglinide [Starlix] 30 mg PO TIDCM 02/06/16 Cholecalciferol (Vitamin D3) [Vitamin D3] 2,000 unit PO DAILY 07/28/17 Docusate Sodium [Colace] 100 mg PO DAILY 07/28/17 Iron Polysaccharide Complex [Ferrex 150] 325 mg PO DAILYCM 07/28/17 Labetalol [Trandate (Beta Liz)] 100 mg PO BID 07/28/17 Diltiazem HCl [Diltiazem ER] 180 mg PO BID 07/29/17 Ampicillin [Omnipen-N] 2 gm IV Q12H #28 vial 08/04/17 Primary Care Physician: Dejuan Catherine DO [Primary Care Provider] - Please follow up with your Primary Care Physician in: in 3-5 days Please Follow Up With: Uche Alvarado MD When: as scheduled Proposed Discharge Date: 08/04/17
--- NOTE | 2017-08-04 09:29 | PCM.DC.SUM ---
Discharge Date and Diagnosis - Problem List Patient Problems: Active and Suspected Problems Bacteremia due to Enterococcus (Acute) Date of Admission: 07/29/17 Date of Discharge: 08/04/17 - Primary Discharge Diagnosis Active and Suspected Problems Bacteremia due to Enterococcus (Acute) - Secondary Discharge Diagnosis Chronic Problems Renal cell cancer (Chronic) S/P nephrectomy on January 13, 2016 at [facility] (diabetes mellitus, type 2) (Chronic) Hypertension, essential (Chronic) CAD (coronary artery disease) (Chronic) S/P CABG x 3 (Chronic) Triple bypass in July 2015 at [facility] Osteoarthritis of left knee (Chronic) Hypertension (Chronic) Hyperlipidemia (Chronic) Aortic stenosis (Chronic) Solitary kidney (Chronic) Chronic kidney disease (Chronic) Hospital Course and Treatment Imaging Results: Clinical Impression(s) from Imaging Studies Chest X-Ray 07/29/17 10:40 IMPRESSION: Mild degree of vascular congestion superimposed on interstitial scarring. Electronically Signed: Marquis Luna MD at 11:44 EST Tel [phone], Service support , Operations: None Summary of Care Provided: Patient is a 76-year-old gentleman with multiple comorbidities admitted with progressive generalized weakness and fever of 1 week duration. Blood cultures obtained as part of patient evaluation came back positive for enterococcus. Specific source of his bacteremia was not clear. Patient underwent subsequent evaluation with TIM which was unremarkable for vegetation. Patient has been seen in consultation by infectious disease and plan is for patient to be discharged home on ampicillin was case management is able to set up his home IV antibiotics Generalized weakness and fever for about 1 week 1. Enterococcal bacteremia of undetermined etiology. Patient managed with broad-spectrum antibiotic therapy. Underwent subsequent evaluation with TIM which was negative for endocarditis. Patient was also seen in consultation by Dr. Alvarado with infectious disease recommended treating patient with ampicillin for 2 weeks 2. History of aortic valve stenosis status post aortic valve replacement with bioprosthetic materia 3. History of renal cell carcinoma status post nephrectomy on January 13, 2016 at [facility] 4. Diabetes mellitus type 2 with complications including diabetic nephropathy. Patient is on Starlix did continue in addition to Accu-Cheks before meals and at bedtime with sliding scale coverage 5. Hypertension-blood pressure controlled, home medications continued with dose adjustment as needed 6. CAD with previous CABG. Had triple bypass in January 2016 at [facility] in [place] 7. Chronic kidney disease stage IV patient is followed by a supervisor looping in [facility] 8. Anemia secondary to anemia of chronic kidney disease monitored H&H 9. DVT prophylaxis avoided chemoprophylaxis in view of patient thrombocytopenia Discharge Diet: Renal Diet Discharge Activity: Return to Normal Activity Home Medications: Medications to take at Discharge Ascorbic Acid [Vitamin C] 1,000 mg PO DAILY@0800 02/06/16 Multivitamin [Daily Multiple Vitamin] 1 each PO DAILY 02/06/16 Nateglinide [Starlix] 30 mg PO TIDCM 02/06/16 Cholecalciferol (Vitamin D3) [Vitamin D3] 2,000 unit PO DAILY 07/28/17 Docusate Sodium [Colace] 100 mg PO DAILY 07/28/17 Iron Polysaccharide Complex [Ferrex 150] 325 mg PO DAILYCM 07/28/17 Labetalol [Trandate (Beta Liz)] 100 mg PO BID 07/28/17 Diltiazem HCl [Diltiazem ER] 180 mg PO BID 07/29/17 Ampicillin [Omnipen-N] 2 gm IV Q12H #28 vial 08/04/17 Primary Care Physician: Dejuan Catherine DO [Primary Care Provider] - Please follow up with your Primary Care Physician in: in 3-5 days Please Follow Up With: Uche Alvarado MD When: as scheduled Disposition: Home with Home Health Minutes spent on discharge:: 35 Patient Condition:: Stable Meaningful Use Info Meaningful Use Diagnoses (Choose all that apply): None applicable Code Visit Inpatient E&M: 53231 Disch Hosp
--- NOTE | 2017-08-04 09:34 | DS.PCM_ITS ---
Discharge Date and Diagnosis - Problem List Patient Problems: Active and Suspected Problems Bacteremia due to Enterococcus (Acute) Date of Admission: 07/29/17 Date of Discharge: 08/04/17 - Primary Discharge Diagnosis Active and Suspected Problems Bacteremia due to Enterococcus (Acute) - Secondary Discharge Diagnosis Chronic Problems Renal cell cancer (Chronic) S/P nephrectomy on January 13, 2016 at [facility] (diabetes mellitus, type 2) (Chronic) Hypertension, essential (Chronic) CAD (coronary artery disease) (Chronic) S/P CABG x 3 (Chronic) Triple bypass in July 2015 at [facility] Osteoarthritis of left knee (Chronic) Hypertension (Chronic) Hyperlipidemia (Chronic) Aortic stenosis (Chronic) Solitary kidney (Chronic) Chronic kidney disease (Chronic) Hospital Course and Treatment Imaging Results: Clinical Impression(s) from Imaging Studies Chest X-Ray 07/29/17 10:40 IMPRESSION: Mild degree of vascular congestion superimposed on interstitial scarring. Electronically Signed: Marquis Luna MD at 11:44 EST Tel [phone], Service support , Operations: None Summary of Care Provided: Patient is a 76-year-old gentleman with multiple comorbidities admitted with progressive generalized weakness and fever of 1 week duration. Blood cultures obtained as part of patient evaluation came back positive for enterococcus. Specific source of his bacteremia was not clear. Patient underwent subsequent evaluation with TIM which was unremarkable for vegetation. Patient has been seen in consultation by infectious disease and plan is for patient to be discharged home on ampicillin was case management is able to set up his home IV antibiotics Generalized weakness and fever for about 1 week 1. Enterococcal bacteremia of undetermined etiology. Patient managed with broad-spectrum antibiotic therapy. Underwent subsequent evaluation with TIM which was negative for endocarditis. Patient was also seen in consultation by Dr. Alvarado with infectious disease recommended treating patient with ampicillin for 2 weeks 2. History of aortic valve stenosis status post aortic valve replacement with bioprosthetic materia 3. History of renal cell carcinoma status post nephrectomy on January 13, 2016 at [facility] 4. Diabetes mellitus type 2 with complications including diabetic nephropathy. Patient is on Starlix did continue in addition to Accu-Cheks before meals and at bedtime with sliding scale coverage 5. Hypertension-blood pressure controlled, home medications continued with dose adjustment as needed 6. CAD with previous CABG. Had triple bypass in January 2016 at [facility] in [place] 7. 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 Anemia secondary to anemia of chronic kidney disease monitored H&H 9. DVT prophylaxis avoided chemoprophylaxis in view of patient thrombocytopenia Discharge Diet: Renal Diet Discharge Activity: Return to Normal Activity Home Medications: Medications to take at Discharge Ascorbic Acid [Vitamin C] 1,000 mg PO DAILY@0800 02/06/16 Multivitamin [Daily Multiple Vitamin] 1 each PO DAILY 02/06/16 Nateglinide [Starlix] 30 mg PO TIDCM 02/06/16 Cholecalciferol (Vitamin D3) [Vitamin D3] 2,000 unit PO DAILY 07/28/17 Docusate Sodium [Colace] 100 mg PO DAILY 07/28/17 Iron Polysaccharide Complex [Ferrex 150] 325 mg PO DAILYCM 07/28/17 Labetalol [Trandate (Beta Liz)] 100 mg PO BID 07/28/17 Diltiazem HCl [Diltiazem ER] 180 mg PO BID 07/29/17 Ampicillin [Omnipen-N] 2 gm IV Q12H #28 vial 08/04/17 Primary Care Physician: Dejuan Catherine DO [Primary Care Provider] - Please follow up with your Primary Care Physician in: in 3-5 days Please Follow Up With: Uche Alvarado MD When: as scheduled Disposition: Home with Home Health Minutes spent on discharge:: 35 Patient Condition:: Stable Meaningful Use Info Meaningful Use Diagnoses (Choose all that apply): None applicable Code Visit Inpatient E&M: 11526 Disch Hosp
--- NOTE | 2017-08-04 11:18 | CASEMGMT ---
KAREN CHAVEZ followed up with [facility] to check status of referral for IV ATBs. [facility] stated that financals came back and copay will be $180.50 per week to dispense medication and $20 per day for supplies. RN KATHY updated patient and regarding copay and voiced understanding. KAREN CHAVEZ followed up with [facility] and everything is good for delivery of IV ATBs for this evening. KAREN CHAVEZ will fax discharge instructions and face to face to [facility]. KAREN CHAVEZ will continue to follow this patient and plan for a safe discharge.
== END 2017-08-04 12:35 | disposition home or self-care (01) | DRG 872 ==
LOC: ED 10:47 → MS3 14:06
PROVIDERS: Internal Medicine; Physician Assistant; Admitting Provider Internal Medicine; Emergency Provider Emergency Medicine; Family Provider Family Medicine; PCP Family Medicine; Visit Provider Internal Medicine
DX: R78.81 Bacteremia (principal); D69.6 Thrombocytopenia, unspecified; N18.4 Chronic kidney disease, stage 4 (severe); E11.22 Type 2 diabetes mellitus with diabetic chronic kidney disease; D63.1 Anemia in chronic kidney disease; R53.1 Weakness; B95.2 Enterococcus as the cause of diseases classified elsewhere; E78.5 Hyperlipidemia, unspecified; Z79.899 Other long term (current) drug therapy; Z95.1 Presence of aortocoronary bypass graft; Z90.5 Acquired absence of kidney; Z87.891 Personal history of nicotine dependence; I12.9 Hypertensive chronic kidney disease with stage 1 through stage 4 chronic kidney disease, or unspecified chronic kidney disease; Z95.3 Presence of xenogenic heart valve; Z85.528 Personal history of other malignant neoplasm of kidney; I25.10 Atherosclerotic heart disease of native coronary artery without angina pectoris
CPT/HCPCS: 36415; 71045; 71046; 80048; 81001; 82962; 83036; 83605; 83735; 83880; 84484; 85025; 85027; 85610; 85652; 85730; 86140; 87040; 87086; 87149; 87186; 87804; 93005; 93312; 93320; 93325; 94762; 99285; J7030; J7040; J7050; Q9957; A4216; J0295

== ENCOUNTER → 2017-08-25 09:24 | Outpatient (CLI) | payer MEDICARE, OTHER, SELFPAY ==
[2017-08-25 10:03] LABS: Hematocrit 30.8 % (40-54); Hemoglobin 9.9 g/dl (13.0-16.5)
[2017-08-25 10:32] LABS: Anion Gap 7 (5-15); BUN 53 mg/dL (7-18); Calcium,Total 8.7 mg/dL (8.5-10.1); Chloride 105 mmol/L (98-107); Creatinine, Serum 3.31 mg/dL (0.70-1.30); EST Glomerular Filtration Rate 19 mL/min (>60); Est Glom Filt Rate - Afr Amer 23 mL/min (>60); Glucose 111 mg/dL (74-106); Phosphorus 3.6 mg/dL (2.5-4.9); Potassium 4.3 mmol/L (3.5-5.1); Sodium Level 138 mmol/L (136-145); Uric Acid 6.4 mg/dL (3.5-7.2)
== END ==
PROVIDERS: Family Provider Family Medicine; PCP Family Medicine; Visit Provider Family Medicine
DX: N18.4 Chronic kidney disease, stage 4 (severe) (principal)
CPT/HCPCS: 36415; 80048; 84100; 84550; 85014; 85018

== ENCOUNTER 2017-08-27 11:41 | Emergency (ER) | payer MEDICARE, OTHER, SELFPAY ==
[2017-08-27 11:42] VITALS: BP 151/83; PULSE 78; RESP 18; TEMP 37.4; O2SAT 98; BMI 31.0
[2017-08-27 11:58] VITALS: BP 148/70; PULSE 80; RESP 14; O2SAT 98
[2017-08-27 12:43] LABS: Absolute Lymphocyte Count 0.72 X10^3/ul (0.83-4.51); Absolute Neutrophil Count 5.3 X10^3/uL (2.0-7.7); Basophil# 0.01 X10^3/uL; Basophil% 0.1 % (0-1); Eosinophil# 0.07 X10^3/uL; Hematocrit 28.9 % (40-54); Hemoglobin 9.2 g/dl (13.0-16.5); Lymphocyte # 0.72 X10^3/ul (4.0); Mean Corp Hgb Conc 31.8 g/gl (32-36); Mean Corpuscular Volume 87.8 fL (80-94); Mean Platelet Vol. 8.7 fl (6.2-12.0); Monocyte# 1.11 X10^3/uL; Monocyte% 15.4 % (0-10); Neutrophil % 73.4 % (47-70); Platelet Count 91 K/mm3 (150-450); RBC Distribution Width CV 16.2 % (11.6-14.6); RBC Distribution Width SD 52.2 fl (35.1-43.9); Red Blood Count 3.29 M/mm3 (4.6-6.2); White Blood Count 7.2 K/mm3 (4.4-11.0)
--- NOTE | 2017-08-27 12:45 | RAD_ITS ---
STUDY: X-RAY - LEFT KNEE REASON FOR EXAM: Male, 76 years old. Pain and swelling. TECHNIQUE: 3 view(s) of the knee. COMPARISON: Comparison is made with prior study dated April 01, 2017. FINDINGS: Normal visualized distal femur. Normal visualized proximal tibia and fibula. Normal proximal tibiofibular articulation. The patient is status post total knee replacement. There is good alignment. There are atherosclerotic calcifications. Soft tissue swelling. Joint effusion. RAD/Knee 3 Views IMPRESSION: Soft tissue swelling. Joint effusion. Electronically Signed: Marquis Luna MD at 13:13 EST Tel [phone], Service support ,
[2017-08-27 12:56] LABS: Anion Gap 7 (5-15); BUN 55 mg/dL (7-18); BUN/Creat Ratio 16.6 RATIO (10-20); Calcium,Total 8.5 mg/dL (8.5-10.1); Chloride 102 mmol/L (98-107); Creatinine, Serum 3.32 mg/dL (0.70-1.30); EST Glomerular Filtration Rate 19 mL/min (>60); Est Glom Filt Rate - Afr Amer 23 mL/min (>60); Estimated Creatinine Clearance 19.54 ml/min; Glucose 148 mg/dL (74-106); Potassium 4.6 mmol/L (3.5-5.1); Sodium Level 136 mmol/L (136-145)
[2017-08-27 13:43] VITALS: BP 140/78; PULSE 75; RESP 14; O2SAT 98
--- NOTE | 2017-08-27 15:50 | ED.VISSUMM ---
- ER Visit Summary Date of Service: 08/27/17 Chief Complaint: [Left knee pain and swelling] History of Present Illness: The patient is a 76 M [the emergency department with complaint of swelling and pain in his left knee that he woke up with this morning. Patient denies any trauma. Patient is concerned because he had sepsis about a month ago of undetermined source. Patient was hospitalized and then went home on IV antibiotics. Patient denies any fevers today. He denies any chills or sweats. Patient is not on any blood thinners.] Patient had a left total knee replacement in September 2016. Physical Examination: [HEENT-PERRLA, EOMI. Cranial nerves II through XII grossly intact. TMs clear. Mucous membranes moist. No adenopathy. Cardiovascular-regular rate and rhythm without murmur or ectopy Lungs-clear to auscultation, chest wall stable without crepitus or subcu emphysema Abdomen-normoactive bowel sounds, soft, nontender, no rebound or rigidity, no peritoneal signs. Extremities-intact ?4, normal range of motion, normal pulses. Left knee-patient has a suprapatellar effusion noted. There is no erythema or increased warmth noted. Patient neurovascular intact distally. Ligamentously stable. Test Results: [CBC with differential was unremarkable with a normal white count. Chemistries unremarkable. Patient creatinine was 3.3 which is chronic. X-ray of the left knee showed soft tissue swelling and an effusion. Blood cultures were also ordered.] Emergency Department Course and Treatment: [Patient case was discussed with who discussed case with Dr. Dominguez. Patient will be seen in the office tomorrow they did not want me to move forward with a arthrocentesis at this time as long as the patient did not appear ill or require admission. My suspicion for septic joint is very low at this point.] Treatment Plan: [Patient to follow-up with Dr. Todd Dominguez tomorrow morning in the office.] Disposition: [Discharged to home in stable condition.] Impression: [Left knee effusion] This note was generated with [employer] dictation software. It may contain incorrect words, spelling, and punctuation that were not noted in review of the chart prior to signing ED Disposition - Plan for ED Patient: Chief Complaint: Edema Referrals: Dejuan Catherine DO [Primary Care Provider] -
--- NOTE | 2017-08-27 15:55 | ED.DCSUM_ITS ---
- ER Visit Summary Date of Service: 08/27/17 Chief Complaint: [Left knee pain and swelling] History of Present Illness: The patient is a 76 M [the emergency department with complaint of swelling and pain in his left knee that he woke up with this morning. Patient denies any trauma. Patient is concerned because he had sepsis about a month ago of undetermined source. Patient was hospitalized and then went home on IV antibiotics. Patient denies any fevers today. He denies any chills or sweats. Patient is not on any blood thinners.] Patient had a left total knee replacement in September 2016. Physical Examination: [HEENT-PERRLA, EOMI. Cranial nerves II through XII grossly intact. TMs clear. Mucous membranes moist. No adenopathy. Cardiovascular-regular rate and rhythm without murmur or ectopy Lungs-clear to auscultation, chest wall stable without crepitus or subcu emphysema Abdomen-normoactive bowel sounds, soft, nontender, no rebound or rigidity, no peritoneal signs. Extremities-intact ?4, normal range of motion, normal pulses. Left knee- patient has a suprapatellar effusion noted. There is no erythema or increased warmth noted. Patient neurovascular intact distally. Ligamentously stable. Test Results: [CBC with differential was unremarkable with a normal white count. Chemistries unremarkable. Patient creatinine was 3.3 which is chronic. X-ray of the left knee showed soft tissue swelling and an effusion. Blood cultures were also ordered.] Emergency Department Course and Treatment: [Patient case was discussed with who discussed case with Dr. Dominguez. Patient will be seen in the office tomorrow they did not want me to move forward with a arthrocentesis at this time as long as the patient did not appear ill or require admission. My suspicion for septic joint is very low at this point.] Treatment Plan: [Patient to follow-up with Dr. Todd Dominguez tomorrow morning in the office.] Disposition: [Discharged to home in stable condition.] Impression: [Left knee effusion] This note was generated with [employer] dictation software. It may contain incorrect words, spelling, and punctuation that were not noted in review of the chart prior to signing ED Disposition - Plan for ED Patient: Chief Complaint: Edema Referrals: Dejuan Catherine DO [Primary Care Provider] -
--- NOTE | 2017-08-27 15:55 | ED.DEP ---
ED Disposition - Plan for ED Patient: Chief Complaint: Edema Instructions: ED Effusion Knee Referrals: Dejuan Catherine DO [Primary Care Provider] - Todd Dominguez DO [STAFF PHYSICIAN] - 1 Day
[2017-08-27 16:16] VITALS: BP 140/78
--- NOTE | 2017-08-28 01:33 | ED.RN ---
LAB CALLS WITH POSITIVE BLOOD CULTURE RESULTS, DR. ROB MADE AWARE, PATIENT'S CONTACTED AND INSTRUCTED TO COME INTO ED FOR FURTHER TREATMENT. STATES WILL BE INTO ED SHORTLY
--- NOTE | 2017-08-28 04:48 | HP.PCM_ITS ---
Problem List (1) Septic arthritis Status: Acute Qualifiers: Septic arthritis location: knee Laterality: right (2) Hyperlipidemia Status: Chronic Qualifiers: Hyperlipidemia type: unspecified Qualified Code(s): E78.5 - Hyperlipidemia , unspecified (3) Hypertension Status: Chronic (4) DM2 (diabetes mellitus, type 2) Status: Chronic Qualifiers: Diabetes mellitus complication status: without complication Diabetes mellitus jail insulin use: without jail use Qualified Code(s): E11.9 - Type 2 diabetes mellitus without complications (5) Bacteremia due to Enterococcus Status: Acute History of Present Illness Date of Admission: 08/28/17 The patient is a 76 year old M [] Past Medical History Past Medical History (Chronic Problems): Chronic Problems Hyperlipidemia (Chronic) Hypertension (Chronic) Osteoarthritis of left knee (Chronic) S/P CABG x 3 (Chronic) Triple bypass in July 2015 at [facility] in [place] CAD (coronary artery disease) (Chronic) Hypertension, essential (Chronic) DM2 (diabetes mellitus, type 2) (Chronic) Renal cell cancer (Chronic) S/P nephrectomy on January 13, 2016 at Chronic kidney disease (Chronic) Solitary kidney (Chronic) Aortic stenosis (Chronic) Allergies losartan potassium [From Cozaar] Allergy (Severe, Verified 08/28/17 04:00) Other valsartan [From Diovan HCT] Allergy (Severe, Verified 08/28/17 04:00) Other amlodipine besylate [From Norvasc] Allergy (Verified 08/28/17 04:00) Other doxazosin mesylate [From Cardura] Allergy (Verified 08/28/17 04:00) Other furosemide [From Lasix] Allergy (Verified 08/28/17 04:00) Other hydrochlorothiazide Allergy (Verified 08/28/17 04:00) Other metoprolol succinate [From Toprol XL] Allergy (Verified 08/28/17 04:00) Other simvastatin Allergy (Verified 08/28/17 04:00) Other oxycodone [From OxyIR] Adverse Reaction (Verified 08/28/17 04:00) Other Hydrogenated Vegetable Oil Adverse Reaction (Uncoded 08/28/17 04:00) Upset Stomach vicodin Adverse Reaction (Uncoded 08/27/17 11:44) Other Home Medications: Ambulatory Orders Medication Instructions Recorded Ascorbic Acid [Vitamin C] 1,000 mg PO DAILY@0800 08 Multivitamin [Daily Multiple 1 each PO DAILY 02/06/16 Vitamin] Nateglinide [Starlix] 30 mg PO TIDCM 02/06/16 Cholecalciferol (Vitamin D3) 2,000 unit PO DAILY 07/28/17 [Vitamin D3] Docusate Sodium [Colace] 100 mg PO DAILY 07/28/17 Iron Polysaccharide Complex 325 mg PO DAILYCM 07/28/17 [Ferrex 150] Labetalol [Trandate (Beta Liz)] 100 mg PO BID 07/28/17 Diltiazem HCl [Diltiazem ER] 180 mg PO BID 07/29/17 Surgical History: cataract, coronary bypass surgery - X 3., herniorrhaphy - Umbilical., - - Hemorrhoidectomy, aortic valve replacement (bovine), cardiac stent, right nephrectomy 01/15/2016. Psychiatric History: No pertinent psych hx Smoking Status: Never smoker - *Family History Sibling History Items: Diabetes Paternal History Items: No pertinent history Maternal History Items: Cancer - breast VTE Information - Inpt Only VTE Present on Admission: No - Physical Exam Vital Signs Temp Pulse Resp BP Pulse Ox 99.3 F H 75 14 140/78 H 98 08/27/17 11:42 08/27/17 13:43 08/27/17 13:43 08/27/17 16:16 08/27/17 13:43 Oxygen Delivery Method Room Air Weight: 98.2 kg Body Mass Index (BMI) 31.0 Finger Stick Blood Glucose 133 Microbiology Past 72 Hours 08/27/17 12:26 Blood Culture - Preliminary Blood Culture (Wb) - Venous 08/27/17 13:15 Blood Culture - Preliminary Blood Culture (Wb) - Anticubital Left Laboratory Tests Past 24 Hrs 08/27/17 08/27/17 12:26 12:26 WBC 7.2 RBC 3.29 L Hgb 9.2 L Hct 28.9 L MCV 87.8 MCH 28.0 MCHC 31.8 L RDW 16.2 H RDW Differential 52.2 H Plt Count 91 L MPV 8.7 Immature Gran % (Auto) 0.100 Neut % (Auto) 73.4 H Lymph % (Auto) 10.0 L [place] % (Auto) 15.4 H Eos % (Auto) 1.0 Baso % (Auto) 0.1 Absolute Neuts (auto) 5.3 Absolute Lymphs (auto) 0.72 L Total Counted Not Reportable Sodium 136 Potassium 4.6 Chloride 102 Carbon Dioxide 27.0 Anion Gap 7 BUN 55 H Creatinine 3.32 H Estim Creat Clear Calc 19.54 Est GFR (MDRD) Af Amer 23 L Est GFR (MDRD) Non-Af 19 L BUN/Creatinine Ratio 16.6 Glucose 148 H Calcium 8.5
== END 2017-08-27 16:17 | disposition home or self-care (01) ==
PROVIDERS: Emergency Provider Emergency Medicine; Family Provider Family Medicine; PCP Family Medicine
DX: M25.462 Effusion, left knee (principal)
CPT/HCPCS: 73562; 80048; 85025; 87040; 87149; 87186; 99283; A4216

== ENCOUNTER 2017-08-28 03:52 | Inpatient (IN) | payer MEDICARE, OTHER, SELFPAY ==
[2017-08-28 03:53] VITALS: BP 176/87; PULSE 88; RESP 20; TEMP 37.6; O2SAT 96; BMI 30.3
[2017-08-28 04:23] LABS: Absolute Lymphocyte Count 1.16 X10^3/ul (0.83-4.51); Absolute Neutrophil Count 7.7 X10^3/uL (2.0-7.7); Basophil# 0.02 X10^3/uL; Basophil% 0.2 % (0-1); Eosinophil# 0.15 X10^3/uL; Eosinophils% 1.5 % (0-5); Hematocrit 28.4 % (40-54); Hemoglobin 9.3 g/dl (13.0-16.5); Lymphocyte # 1.16 X10^3/ul (4.0); Lymphocyte % 11.2 % (19-41); Mean Corp Hgb Conc 32.7 g/gl (32-36); Mean Corpuscular Hgb 28.6 pg (27.0-32.0); Mean Corpuscular Volume 87.4 fL (80-94); Mean Platelet Vol. 9.3 fl (6.2-12.0); Monocyte# 1.31 X10^3/uL; Monocyte% 12.7 % (0-10); Neutrophil # 7.66 X10^3/uL (2.7-7.7); Platelet Count 115 K/mm3 (150-450); RBC Distribution Width CV 15.7 % (11.6-14.6); RBC Distribution Width SD 48.8 fl (35.1-43.9); Red Blood Count 3.25 M/mm3 (4.6-6.2); White Blood Count 10.3 K/mm3 (4.4-11.0)
[2017-08-28 04:24] LABS: POSITIVE COUNT NO; POSITIVE DIFFERENTIAL NO; POSITIVE MORPHOLOGY NO
[2017-08-28 04:48] LABS: Lactic Acid 0.8 mmol/L (0.4-2.0)
[2017-08-28 05:01] VITALS: BP 130/71; PULSE 81; RESP 16; TEMP 36.6; O2SAT 95
--- NOTE | 2017-08-28 05:01 | ED.VISSUMM ---
- ER Visit Summary Date of Service: 08/28/17 Chief Complaint: Abnormal lab tests History of Present Illness: The patient is a 76 M presenting for evaluation secondary to an abnormal blood culture. Patient was seen yesterday secondary to a warm painful left knee that is one-year status post total knee replacement. Patient had blood cultures taken and preliminary results showed gram-positive cocci and rods in the patient's blood. He was asked to return to the emergency department. Patient endorses that he has been getting some fevers with this and also endorses that he has pain and swelling in his left knee. Patient had a history of infection that was complicated by a prolonged course of antibiotics. Physical Examination: Physical exam unremarkable exam for examination of the left lower extremity. Left knee is warm erythematous and has effusion. No pain with short arc range of motion. Well-healed surgical scar over the anterior knee. Test Results: Lactic acid negative Emergency Department Course and Treatment: I reviewed the patient's records, he does have a blood culture with preliminary result of gram positive cocci in chains. Patient has a history of chronic kidney disease, he was given 500 mg of IV vancomycin and admitted to the hospitalist for further antibiotics and orthopedics consultation. Disposition: Admit Impression: 1. Bacteremia likely secondary to septic left knee This note was generated with [employer] dictation software. It may contain incorrect words, spelling, and punctuation that were not noted in review of the chart prior to signing ED Disposition - Plan for ED Patient: Chief Complaint: Abn Labs
[2017-08-28 05:10] LABS: ALB/GLOB Ratio 0.8 RATIO (0.9-2.4); AST(SGOT) 18 U/L (15-37); Alanine Aminotransfer ALT/SGPT 24 U/L (16-61); Albumin, Serum 3.2 g/dL (3.2-5.0); Alkaline Phosphatase 71 U/L (45-117); Anion Gap 12 (5-15); BUN 58 mg/dL (7-18); BUN/Creat Ratio 17.1 RATIO (10-20); Calcium,Total 8.5 mg/dL (8.5-10.1); Chloride 100 mmol/L (98-107); Creatinine, Serum 3.39 mg/dL (0.70-1.30); EST Glomerular Filtration Rate 19 mL/min (>60); Est Glom Filt Rate - Afr Amer 23 mL/min (>60); Estimated Creatinine Clearance 19.14 ml/min; Globulin 3.9 g/dL (2.2-4.2); Glucose 125 mg/dL (74-106); Potassium 4.3 mmol/L (3.5-5.1); Protein, Total 7.1 g/dL (6.4-8.2); Sodium Level 133 mmol/L (136-145)
--- NOTE | 2017-08-28 05:15 | HP.PCM_ITS ---
Problem List (1) Septic arthritis Status: Acute Qualifiers: Septic arthritis location: knee Laterality: right (2) Aortic stenosis Status: Chronic Qualifiers: Cardiac valve disease etiology: etiology unspecified Qualified Code(s): I35.0 - Nonrheumatic aortic (valve) stenosis (3) CAD (coronary artery disease) Status: Chronic Qualifiers: Coronary Disease-Associated Artery/Lesion type: unspecified vessel or lesion type (4) DM2 (diabetes mellitus, type 2) Status: Chronic Qualifiers: Diabetes mellitus complication status: without complication Diabetes mellitus alf insulin use: without alf use Qualified Code(s): E11.9 - Type 2 diabetes mellitus without complications (5) Hyperlipidemia Status: Chronic Qualifiers: Hyperlipidemia type: unspecified Qualified Code(s): E78.5 - Hyperlipidemia , unspecified (6) Hypertension, essential Status: Chronic (7) S/P CABG x 3 Status: Chronic Comment: Triple bypass in July [address] [facility] (8) Solitary kidney Status: Chronic History of Present Illness Date of Admission: 08/28/17 Chief Complaint: left knee pain and swelling The patient is a 76 year old M with multiple comorbidities, recently admitted and discharged with enterococcal bacteremia, determined to be of unknown etiology at that time. Patient was followed by infectious disease in the hospital, underwent TIM which was negative for endocarditis. Patient was discharged home on ampicillin for 2 weeks. He came back to the ED yesterday with left knee swelling and pain. He had blood cultures that were taken, and patient was discharged home to follow with Dr. Dominguez. Back to the ED when the blood cultures were said to be positive, growing E faecalis. Denied any fever but admits to some chills. No dizziness or palpitations or chest pain or shortness of breath. Vitals in the ED was stable. Past Medical History Past Medical History (Chronic Problems): Chronic Problems Hyperlipidemia (Chronic) Hypertension (Chronic) Osteoarthritis of left knee (Chronic) S/P CABG x 3 (Chronic) Triple bypass in July [address] [facility] CAD (coronary artery disease) (Chronic) Hypertension, essential (Chronic) DM2 (diabetes mellitus, type 2) (Chronic) Renal cell cancer (Chronic) S/P nephrectomy on January 13, 2016 at Chronic kidney disease (Chronic) Solitary kidney (Chronic) Aortic stenosis (Chronic) Allergies losartan potassium [From Cozaar] Allergy (Severe, Verified 08/28/17 04:00) Other valsartan [From Diovan HCT] Allergy (Severe, Verified 08/28/17 04:00) Other amlodipine besylate [From Norvasc] Allergy (Verified 08/28/17 04:00) Other doxazosin mesylate [From Cardura] Allergy (Verified 08/28/17 04:00) Other furosemide [From Lasix] Allergy (Verified 08/28/17 04:00) Other hydrochlorothiazide Allergy (Verified 08/28/17 04:00) Other metoprolol succinate [From Toprol XL] Allergy (Verified 08/28/17 04:00) Other simvastatin Allergy (Verified 08/28/17 04:00) Other oxycodone [From OxyIR] Adverse Reaction (Verified 08/28/17 04:00) Other Hydrogenated Vegetable Oil Adverse Reaction (Uncoded 08/28/17 04:00) Upset Stomach vicodin Adverse Reaction (Uncoded 08/27/17 11:44) Other Home Medications: Ambulatory Orders Medication Instructions Recorded Ascorbic Acid [Vitamin C] 1,000 mg PO DAILY@0800 02/06/16 Multivitamin [Daily Multiple 1 each PO DAILY 02/06/16 Vitamin] Nateglinide [Starlix] 30 mg PO TIDCM 02/06/16 Cholecalciferol (Vitamin D3) 2,000 unit PO DAILY 07/28/17 [Vitamin D3] Docusate Sodium [Colace] 100 mg PO DAILY 07/28/17 Iron Polysaccharide Complex 325 mg PO DAILYCM 07/28/17 [Ferrex 150] Labetalol [Trandate (Beta Liz)] 100 mg PO BID 07/28/17 Diltiazem HCl [Diltiazem ER] 180 mg PO BID 07/29/17 Surgical History: cataract, coronary bypass surgery - X 3., herniorrhaphy - Umbilical., - - Hemorrhoidectomy, aortic valve replacement (bovine), cardiac stent, right nephrectomy 01/15/2016. Psychiatric History: No pertinent psych hx Lives: Spouse/ Significant Other Smoking Status: Former smoker Tobacco Use: Non-smoker Alcohol: None Drugs: None - *Family History Sibling History Items: Diabetes Paternal History Items: No pertinent history Maternal History Items: Cancer - breast Review of Systems Constitutional: Reports: Chills. Denies: Fever, Weight Change Eyes: Denies: Blurred vision, Cataracts, Conjunctivae Inflammation HEENT: Denies: Difficulty Hearing, Difficulty Swallowing, Head Aches, Hearing Changes, Sinus Congestion, Sinus Drainage Cardiovascular: Denies: Chest Pain, Claudication, Orthopnea, Palpitations Respiratory: Denies: Cough, Hemoptysis, Shortness of Breath, Shortness of breath at rest, Shortness of breath upon exertion, Sputum production Gastrointestinal: Denies: Abdominal Pain, Nausea, Vomiting Genitourinary: Denies: Dysuria, Frequency, Incontinence Musculoskeletal: Denies: Joint Pain, Joint stiffness, Joint swelling, Joint Tenderness Skin: Denies: Rash, Wounds Neurological: Denies: Difficulty swallowing, Focal weakness, Numbness, Tingling Psychiatric: Denies: Anxiety, Depression, Homicidal Ideations, Suicidal Ideations Hematologic/ Lymphatic: Denies: Easy Bruising, Easy Bleeding VTE Information - Inpt Only VTE Present on Admission: No VTE Pharm Prophylaxis ordered?: Yes - Physical Exam General: Alert, Oriented x3, Cooperative, No apparent distress HEENT: Atraumatic, PERRLA, EOMI, Normocephalic Oral: Moist Mucosa Neck: Supple Lungs: Clear to auscultation, Normal air movement Cardiovascular: Regular rate, Regular Rhythm, Normal S1, Normal S2, No murmurs, Murmur - 3/6 holosystolic murmur. Abdomen: Bowel Sounds Present, Soft, Non Tender, Non-Distended, No Hepato- splenomegaly Extremities: Edema - left knee swelling with differential warmth, and slight erythema on the anterolateral aspect of left knee, old scar present Skin: No rashes, No breakdown Musculoskeletal: No Tenderness to Palpation of Joints or Extremities Neurological: Cranial nerves II-XII grossly intact Psych/Mental Status: Normal Affect, Appropriate Vital Signs Temp Pulse Resp BP Pulse Ox 98 F 81 16 130/71 H 95 08/28/17 05:01 08/28/17 05:01 08/28/17 05:01 08/28/17 05:01 08/28/17 05:01 Assessment/Plan 76 year old M with multiple comorbidities, recently admitted and discharged with enterococcal bacteremia, determined to be of unknown etiology at that time , post TIM that was negative, with complaints of left knee pain and chills. Patient was seen in the ED on 08/27/2017 and sent to follow-up in the outpatient with orthopedics. Blood cultures that were taking came back positive for E faecalis and patient was called to come back to the hospital. 1. E. fecalis bacteremia, in a patient who had recently completed 2 week course of ampicillin, status post recent TMI that was negative, was followed up by ID Plan: To [facility] floor, continue IV fluids, IV vancomycin and Zosyn, ID consult 2. Right knee pain and swelling likely septic arthritis, patient currently has E faecalis bacteremia, likely the source, patient was to have had an outpatient appointment with Dr. Dominguez today, will consult Dr. Dominguez to come to the hospital. Continue with Tylenol as patient has allergy to oxycodone and morphine. 3. History of aortic valve stenosis status post aortic valve replacement with bioprosthetic material 3. Solitary kidney, history of renal cell carcinoma status post nephrectomy 4. Diabetes mellitus type 2 with complications including diabetic nephropathy, her home regimen with Accu-Cheks and insulin sliding scale 5. Hypertension-blood pressure controlled, continue home medications 6. CAD with previous CABG 7. Chronic kidney disease stage IV, s/p nephrectomy 8. Anemia secondary to anemia of chronic kidney disease, her iron stores 9. DVT prophylaxis - SCDs -has thrombocytopenia Code Visit Inpatient E&M: [id number] Init Hosp L3
[2017-08-28 05:42] VITALS: BMI 29.0; BMI 29.5
[2017-08-28 05:52] VITALS: BP 149/74; PULSE 75; RESP 18; TEMP 37.2; O2SAT 96
[2017-08-28 06:31] LABS: Bedside Glucose 135 mg/dL (70-110)
[2017-08-28 07:02] LABS: Absolute Neutrophil Count 5.9 X10^3/uL (2.0-7.7); Basophil# 0.02 X10^3/uL; Basophil% 0.2 % (0-1); Eosinophil# 0.12 X10^3/uL; Eosinophils% 1.5 % (0-5); Hematocrit 26.5 % (40-54); Hemoglobin 8.5 g/dl (13.0-16.5); Lymphocyte % 14.6 % (19-41); Mean Corp Hgb Conc 32.1 g/gl (32-36); Mean Corpuscular Hgb 27.8 pg (27.0-32.0); Mean Corpuscular Volume 86.6 fL (80-94); Mean Platelet Vol. 9.1 fl (6.2-12.0); Monocyte# 0.98 X10^3/uL; Monocyte% 11.9 % (0-10); Neutrophil # 5.87 X10^3/uL (2.7-7.7); Neutrophil % 71.6 % (47-70); Platelet Count 102 K/mm3 (150-450); RBC Distribution Width CV 16.3 % (11.6-14.6); RBC Distribution Width SD 51.9 fl (35.1-43.9); Red Blood Count 3.06 M/mm3 (4.6-6.2); White Blood Count 8.2 K/mm3 (4.4-11.0)
[2017-08-28 07:11] LABS: POSITIVE COUNT NO; POSITIVE DIFFERENTIAL NO; POSITIVE MORPHOLOGY NO
[2017-08-28 07:17] LABS: Anion Gap 11 (5-15); BUN 54 mg/dL (7-18); BUN/Creat Ratio 16.1 RATIO (10-20); Calcium,Total 8.3 mg/dL (8.5-10.1); Chloride 101 mmol/L (98-107); Creatinine, Serum 3.36 mg/dL (0.70-1.30); EST Glomerular Filtration Rate 19 mL/min (>60); Est Glom Filt Rate - Afr Amer 23 mL/min (>60); Estimated Creatinine Clearance 19.31 ml/min; Glucose 121 mg/dL (74-106); Potassium 4.3 mmol/L (3.5-5.1); Sodium Level 134 mmol/L (136-145)
--- NOTE | 2017-08-28 08:01 | PCM.PN.HOSP ---
Patient Problems: Active and Suspected Problems Septic arthritis (Acute) Bacteremia due to Enterococcus (Acute) Subjective: Still with left knee pain. Vitals/I&O's: Vital Signs Temp Pulse Resp BP Pulse Ox 37.2 C 75 18 149/74 H 96 08/28/17 05:52 08/28/17 05:52 08/28/17 05:52 08/28/17 05:52 08/28/17 05:52 Oxygen Delivery Method Room Air Weight: 93.4 kg Body Mass Index (BMI) 29.5 Intake and Output for Last 24 Hours 08/26/17 08/27/17 08/28/17 23:59 23:59 23:59 Output Total 300 / 300 Balance -300 / -300 General: Alert, Cooperative, No apparent distress HEENT: Atraumatic, Normocephalic Neck: No Nodes, Thyroid Normal Size and Texture Lungs: Clear to auscultation, Normal air movement, No rhonchi, No wheeze Cardiovascular: Regular rate, Regular Rhythm, - - 3/6 DONOVAN at RUSB Abdomen: Bowel Sounds Present, Soft, Non Tender, Non-Distended Extremities: No edema, No Calf Tenderness Psych/Mental Status: Normal Affect, Appropriate Laboratory Results 08/28/17 06:15: POC Glucose 135 H 08/28/17 06:30: WBC 8.2, RBC 3.06 L, Hgb 8.5 L, Hct 26.5 L, MCV 86.6, MCH 27.8, MCHC 32.1, RDW 16.3 H, RDW Differential 51.9 H, Plt Count 102 L, MPV 9.1, Immature Gran % (Auto) 0.200, Neut % (Auto) 71.6 H, Lymph % (Auto) 14.6 L, [place] % (Auto) 11.9 H, Eos % (Auto) 1.5, Baso % (Auto) 0.2, Absolute Neuts (auto) 5.9, Absolute Lymphs (auto) 1.20, Total Counted Not Reportable 08/28/17 06:30: Sodium 134 L, Potassium 4.3, Chloride 101, Carbon Dioxide 22.0, Anion Gap 11, BUN 54 H, Creatinine 3.36 H, Estim Creat Clear Calc 19.31, Est GFR (MDRD) Af Amer 23 L, Est GFR (MDRD) Non-Af 19 L, BUN/Creatinine Ratio 16.1, Glucose 121 H, Calcium 8.3 L Current Medications Acetaminophen (Tylenol) 650 mg PO Q4H PRN PRN PRN Reason: FEVER Acetaminophen (Tylenol) 650 mg PO Q6H PRN PRN PRN Reason: PAIN Ascorbic Acid (Vitamin C) 1,000 mg PO DAILY@0800 KRANTHI Bisacodyl (Dulcolax) 5 mg PO DAILY PRN PRN PRN Reason: Constipation Cholecalciferol (Vitamin D) 2,000 unit PO DAILY KRANTHI Dextrose (D50w Syringe) 0 gm IV X1 PRN; Protocol PRN Reason: Hypoglycemia Diltiazem HCl (Cardizem Cd) 180 mg PO BID KRANTHI Docusate Sodium (Colace) 100 mg PO DAILY KRANTHI Ferrous Sulfate (Ferrous Sulfate) 325 mg PO DAILYCM KRANTHI Glucagon () 1 mg IM .X1 PRN PRN Reason: Hypoglycemia Piperacillin Sod/Tazobactam Sod (Zosyn) 3.375 gm in 50 mls @ 12.5 mls/hr IV Q12 KRANTHI Insulin Aspart (Novolog Flexpen (Bkc)) 0 units SC ACHS KRANTHI PRN Reason: Protocol Last Admin: 08/28/17 06:18 Dose: Not Given Labetalol HCl (Trandate) 100 mg PO BID KRANTHI Magnesium Hydroxide (Milk Of Magnesia) 30 ml PO DAILY PRN PRN PRN Reason: Constipation Multivitamins (Multivitamin) 1 tablet PO DAILYCM KRANTHI Nateglinide (Starlix) 30 mg PO TIDCM KRANTHI Sodium Chloride () 5 - 30 ml IV UD PRN PRN Reason: SALINE FLUSH Assessment/Plan Active and Suspected Problems Septic arthritis (Acute) Bacteremia due to Enterococcus (Acute) 1. Bacteremia: + Enterococcus on vanc and zosyn ID on consult 2. Suspected septic arthritis left knee concern for device infection Ortho on consult will need arthrocentesis If indeed infected, unclear if source of bacteremia last month or became seeded from that bacteremia 3. CKD IV monitor creatinine closely if worsens, consult nephrology 4. anemia: normocytic low iron, normal ferritin likely anemia of chronic disease monitor no need for transfusions 5. DVT proph: SCDs DW patient's at bedside. Code Visit Procedures: Other Procedure - See Report - Non-billable rounding.
--- NOTE | 2017-08-28 08:09 | PN_ITS ---
Patient Problems: Active and Suspected Problems Septic arthritis (Acute) Bacteremia due to Enterococcus (Acute) Subjective: Still with left knee pain. Vitals/I&O's: Vital Signs Temp Pulse Resp BP Pulse Ox 37.2 C 75 18 149/74 H 96 08/28/17 05:52 08/28/17 05:52 08/28/17 05:52 08/28/17 05:52 08/28/17 05:52 Oxygen Delivery Method Room Air Weight: 93.4 kg Body Mass Index (BMI) 29.5 Intake and Output for Last 24 Hours 08/26/17 08/27/17 08/28/17 23:59 23:59 23:59 Output Total 300 / 300 Balance -300 / -300 General: Alert, Cooperative, No apparent distress HEENT: Atraumatic, Normocephalic Neck: No Nodes, Thyroid Normal Size and Texture Lungs: Clear to auscultation, Normal air movement, No rhonchi, No wheeze Cardiovascular: Regular rate, Regular Rhythm, - - 3/6 DONOVAN at RUSB Abdomen: Bowel Sounds Present, Soft, Non Tender, Non-Distended Extremities: No edema, No Calf Tenderness Psych/Mental Status: Normal Affect, Appropriate Laboratory Results 08/28/17 06:15: POC Glucose 135 H 08/28/17 06:30: WBC 8.2, RBC 3.06 L, Hgb 8.5 L, Hct 26.5 L, MCV 86.6, MCH 27.8, MCHC 32.1, RDW 16.3 H, RDW Differential 51.9 H, Plt Count 102 L, MPV 9.1, Immature Gran % (Auto) 0.200, Neut % (Auto) 71.6 H, Lymph % (Auto) 14.6 L, [place] % (Auto) 11.9 H, Eos % (Auto) 1.5, Baso % (Auto) 0.2, Absolute Neuts (auto) 5.9 , Absolute Lymphs (auto) 1.20, Total Counted Not Reportable 08/28/17 06:30: Sodium 134 L, Potassium 4.3, Chloride 101, Carbon Dioxide 22.0, Anion Gap 11, BUN 54 H, Creatinine 3.36 H, Estim Creat Clear Calc 19.31, Est GFR (MDRD) Af Amer 23 L, Est GFR (MDRD) Non-Af 19 L, BUN/Creatinine Ratio 16.1, Glucose 121 H, Calcium 8.3 L Current Medications Acetaminophen (Tylenol) 650 mg PO Q4H PRN PRN PRN Reason: FEVER Acetaminophen (Tylenol) 650 mg PO Q6H PRN PRN PRN Reason: PAIN Ascorbic Acid (Vitamin C) 1,000 mg PO DAILY@0800 KRANTHI Bisacodyl (Dulcolax) 5 mg PO DAILY PRN PRN PRN Reason: Constipation Cholecalciferol (Vitamin D) 2,000 unit PO DAILY KRANTHI Dextrose (D50w Syringe) 0 gm IV X1 PRN; Protocol PRN Reason: Hypoglycemia Diltiazem HCl (Cardizem Cd) 180 mg PO BID KRANTHI Docusate Sodium (Colace) 100 mg PO DAILY KRANTHI Ferrous Sulfate (Ferrous Sulfate) 325 mg PO DAILYCM KRANTHI Glucagon () 1 mg IM .X1 PRN PRN Reason: Hypoglycemia Piperacillin Sod/Tazobactam Sod (Zosyn) 3.375 gm in 50 mls @ 12.5 mls/hr IV Q12 KRANTHI Insulin Aspart (Novolog Flexpen (Bkc)) 0 units SC ACHS KRANTHI PRN Reason: Protocol Last Admin: 08/28/17 06:18 Dose: Not Given Labetalol HCl (Trandate) 100 mg PO BID KRANTHI Magnesium Hydroxide (Milk Of Magnesia) 30 ml PO DAILY PRN PRN PRN Reason: Constipation Multivitamins (Multivitamin) 1 tablet PO DAILYCM KRANTHI Nateglinide (Starlix) 30 mg PO TIDCM KRANTHI Sodium Chloride () 5 - 30 ml IV UD PRN PRN Reason: SALINE FLUSH Assessment/Plan Active and Suspected Problems Septic arthritis (Acute) Bacteremia due to Enterococcus (Acute) 1. Bacteremia: * + Enterococcus * on vanc and zosyn * ID on consult 2. Suspected septic arthritis * left knee * concern for device infection * Ortho on consult * will need arthrocentesis * If indeed infected, unclear if source of bacteremia last month or became seeded from that bacteremia 3. CKD IV * monitor creatinine closely * if worsens, consult nephrology 4. anemia: * normocytic * low iron, normal ferritin * likely anemia of chronic disease * monitor * no need for transfusions 5. DVT proph: SCDs DW patient's at bedside. Code Visit Procedures: Other Procedure - See Report - Non-billable rounding.
--- NOTE | 2017-08-28 08:48 | PCM.CONS.B ---
- Consult Date of Consult: 08/28/17 - Reason for Consult 76-year-old male well-known to my practice roughly 1 year out status post left total knee arthroplasty. Patient has recently been admitted to the hospital for enterococcus bacteremia and treated with ampicillin. Patient went to the emergency room yesterday due to increasing left knee pain where lab work was undertaken that was normal however blood cultures had been done and is subsequently grown out E.faecilis patient was admitted to the floor and started on antibiotics secondary to the bacteremia. I was consulted for evaluation of the knee and aspiration to evaluate for intra-articular pathology. Patient is currently lying in bed in no acute distress but obviously is upset with the knee pain. Patient has a history of solitary kidney due to renal cell cancer in the past. No history of diabetes. Patient states his pain to the knee has only been around for the last few days. Objective: Patient otherwise alert and oriented ?3 in no acute distress. Appropriate eye contact and affect. Patient remains intact from L1-S1 distributions. He has +1 pulses. Patient's right lower extremity shows no signs of knee effusion. He has full symmetric range of motion in that knee. He has no calf pain negative Homans. He has a well-healed incision from his previous CABG procedure. The left lower extremity shows no calf pain negative Homans EHL anterior gastrocs peroneals 5 out of 5. He has an effusion to the knee with some mild warmth no obvious erythema. His range of motion is limited to 0 to about 75? due to swelling in the knee. He has no extending erythema there is no obvious groin adenopathy. X-rays:-Hardware appears to be well seated well-placed with no obvious signs of loosening. Effusion noted in the suprapatellar pouch. Patient has peripheral vascular disease and atherosclerotic changes. Assessment: Left knee periprosthetic infection. Septicemia and associated bacteremia. Plan: At this point time the patient has been started on antibiotics to include vancomycin and Zosyn. We will go ahead and perform a knee aspirate sent down for appropriate cell count and cultures. It may be a sterile tap at this time secondary to the antibiotic coverage. It still may have been a sterile tap as well secondary to his previous antibiotic coverage on the first episode of septicemia. Counseled and consented for left knee aspiration. Patient's knee was then prepped and draped in usual fashion and he underwent a standard knee aspiration using a superolateral approach. Patient had a large return of a knee effusion with some some associated blood. Total aspirate quantity was roughly 50 cc. Initial 30 cc cocktail will be sent down for evaluation using standard technique. At this point time I discussed with the patient him to have Dr. Bryant come and see the patient as he is the area total joint expert when he comes to revision procedures. Plan to the patient that ultimately will be Dr. Bryant's decision about how to proceed. He can be considered to remove the poly-acutely since the patient has early onset of knee pain. Otherwise full 2-stage explant may be required. I explained this to the patient she understood the process. We will continue to follow at this time. Await cell count return. Will order sed rate CRP if not already been done. Will follow. Any issues please contact me.
[2017-08-28 08:50] VITALS: BP 152/68; PULSE 72; RESP 18; TEMP 37.1; O2SAT 97
[2017-08-28] MEDS: Ascorbic Acid 500 MG Tablet 1000 MG PO (08:51)
[2017-08-28] MEDS: dilTIAZem CD 180 MG Capsule PO ×2 (08:52→20:45)
[2017-08-28] MEDS: Ferrous Sulfate 325 MG Tablet PO (08:52)
[2017-08-28] MEDS: Labetalol 100 MG Tablet PO ×2 (08:52→20:45)
[2017-08-28] MEDS: Multivitamins,Therapeutic Tablet 1 TABLET PO (08:52)
--- NOTE | 2017-08-28 08:53 | NURSING ---
IN W/ DR. PEREZ, ASSISTED WITH ASPIRATION OF FLUID FROM LT KNEE. VS CHECKED AND MEDS GIVEN. DENIES FURTHER NEEDS. CALL LIGHT WITHIN REACH
[2017-08-28 09:42] LABS: RBC /Synovial Fluid 0.014 10^6/uL (0)
[2017-08-28 10:01] LABS: Erythrocyte Sedimentation Rate 44 mm/hr (0-20)
[2017-08-28 10:10] LABS: AUTO B FLUID DILUENT BKGD CT WBC <0.1 RBC <0.01 (W<.1,R<.01); Source / Synovial Fluid LEFT KNEE; Viscosity / Synovial Fluid Sl. Viscous (HIGH)
[2017-08-28 10:12] LABS: Appearance /Synovial Fluid Cloudy (CLEAR)
--- NOTE | 2017-08-28 10:13 | NURSING ---
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
--- NOTE | 2017-08-28 10:27 | NURSING ---
called Dr. Bryant's office left message requesting Dr. Bryant's return call to verify plan and NPO status. (aware per [facility] OR-RN mike no plans for OR at this time)
[2017-08-28] MEDS: Piperacil/Tazobactam 3.375 GM/50 ML ML IV (10:35)
[2017-08-28 10:36] LABS: Lymph 3 %; Monocyte /Synovial Fluid 3 %; Neutrophil 94 % (0-25)
[2017-08-28 10:41] LABS: Body Fluid QC Type(s) BF1Q
[2017-08-28] MEDS: Docusate Sodium 100 MG Capsule PO (10:54)
--- NOTE | 2017-08-28 11:38 | CASEMGMT ---
KAREN CHAVEZ Face to Face with patient for initial transition planning/care coordination assessment. RN KATHY introduced self and role at [facility]. Patient sitting in chair, alert and oriented, at bedside. Patient willing to participate in assessment and is able to answer all questions appropriately. Care providers, pharmacy, and demographics verified. See link attached. Patient wishes to discharge home, denies need for home health at this time. Patient states he has no further needs or concerns at this time. Patient was recently here on 07/29-08/04/17 for bacteremia and was discharged home with [facility] with [facility] and [facility]. Per Dr. Alvraado patient will need set-up again with [facility] and [facility] and patient will be here throught the weekend. CM to follow for discharge planning needs that may arise. Disposition Plan: Patient to discharge home with HHC, family support, and follow-up plans in place.
[2017-08-28 11:46] LABS: Bedside Glucose 180 mg/dL (70-110)
--- NOTE | 2017-08-28 12:14 | ECHOCS_ITS ---
Reason For Study: Murmur Procedure This was a 2D Doppler, Color Flow transthoracic echocardiogram. Exam performed portable in patient room. Left Ventricle Moderately dilated left ventricle. The estimated ejection fraction is 65 %. No regional wall motion abnormalities noted. Right Ventricle Mildly dilated right ventricle. Normal systolic function. Atria The left atrium is severely enlarged. The right atrium is moderately enlarged. Normal atrial septum. Mitral Valve Moderate diffuse mitral valve thickening. Severe mitral annular calcification extending into the posterior leaflet. Moderate mitral valve stenosis. Peak transmitral valve gradient 18 mmHg. Mean transmitral valve gradient 8 mmHg. Mild (1+) mitral valve insufficiency. Tricuspid Valve Normal tricuspid valve. Trivial tricuspid valve insufficiency. Right ventricular systolic pressure estimated to be 45 mmHg. Moderate pulmonary hypertension. Aortic Valve There is no aortic valvular vegetation. Moderate aortic stenosis. Peak aortic valve gradient 47 mmHg. Mean aortic valve gradient 26 mmHg. Trivial aortic valve insufficiency. Bioprosthetic aortic valve. Pulmonic Valve Normal pulmonic valve. Great Vessels Normal aortic root. Normal arch. Normal inferior vena cava. Inferior vena cava collapse with sniff. Pericardium/Pleural No pericardial effusion. MMode/2D Measurements & Calculations LVIDd: 5.7 cm IVSd: 1.4 cm LVOT diam: 2.0 cm LVIDs: 3.1 cm LVPWd: 1.3 cm LVOT area: 3.0 cm2 RVDd: 3.9 cm FS: 45.8 % Ao root diam: 3.7 cm LAV(MOD-bp): 174.1 ml LA A4 area: 38.6 cm2 LA dimension: 5.4 cm LAV(MOD-bp) Indexed: 82.5 ml/m2 LAV(MOD-sp2): 177.2 ml LAV(MOD-sp4): 168.9 ml RA A4 area: 24.6 cm2 Doppler Measurements & Calculations MV E max pastor: 178.9 cm/sec Lat Peak E' Pastor: 6.6 cm/sec Med Peak E' Pastor: 5.9 cm/sec MV A max pastor: 117.2 cm/sec E/E' lat: 26.9 E/E' med: 30.1 MV E/A: 1.5 MV V2 max: 209.3 cm/sec MV P1/2t max pastor: 204.9 cm/sec Ao V2 max: 342.3 cm/sec MV max P.6 mmHg MV P1/2t: 100.2 msec Ao max P.9 mmHg MV V2 mean: 129.7 cm/sec MV dec slope: 598.9 cm/sec2 Ao V2 mean: 241.7 cm/sec MV mean P.5 mmHg MVA(P1/2t): 2.2 cm2 Ao mean P.1 mmHg MV V2 VTI: 54.0 cm Ao V2 VTI: 67.7 cm MVA(VTI): 1.9 cm2 JOSIANE(I,D): 1.5 cm2 JOSIANE(V,D): 1.4 cm2 AI max pastor: 391.7 cm/sec LV V1 max: 157.1 cm/sec SV(LVOT): 100.0 ml AI max P.4 mmHg LV V1 max P.9 mmHg AI dec slope: 277.7 cm/sec2 LV V1 mean P.6 mmHg AI P1/2t: 413.2 msec LV V1 mean: 111.7 cm/sec LV V1 VTI: 33.4 cm PA V2 max: 160.1 cm/sec TR max pastor: 316.5 cm/sec TR max P.1 mmHg Interpretation Summary Moderately dilated left ventricle. The estimated ejection fraction is 65 %. The left atrium is severely enlarged. The right atrium is moderately enlarged. Peak transmitral valve gradient 18 mmHg. Moderate mitral valve stenosis. Mild (1+) mitral valve insufficiency. Right ventricular systolic pressure estimated to be 45 mmHg. Moderate pulmonary hypertension. Moderate aortic stenosis; normal gradients for bioprosthetic valve. There is no aortic valvular vegetation. Compared to TIM report dated 07/31/2017, no appreciable changes noted. Ordering Physician: Uche Alvarado Referring Physician: Dejuan Catherine Performed By: Anahi Del Cid RDCS
--- NOTE | 2017-08-28 12:24 | PCM.HP.ID ---
Problem List (1) Bacteremia due to Enterococcus Status: Acute Reason for Consult: bacteremia Consulted by: Dr. Lu History of Present Illness: The patient is a 76 year old M with h/o prosthetic valve replacement who presented early this AM with two days of severe, progressive L knee pain/swelling/warmth. Was admitted in July with enterococcus bacteremia of unclear source. TIM showed no endocarditis, discharged on 2 weeks total of iv ampicillin, completed 08/15, picc was removed, and he was feeling well until knee started to hurt. No other artificial material in body. No other joint/back pain. No fever or chills. Came to ED 08/27, pt requested bcx drawn, and he was sent home. Bcx turned (+) for enterococcus, called to return to hospital. Knee aspirated this AM with heavy purulence seen. Full ROS performed and neg except as noted above. - Medical History Past Medical History (Chronic Problems): Chronic Problems Hyperlipidemia (Chronic) Hypertension (Chronic) Osteoarthritis of left knee (Chronic) S/P CABG x 3 (Chronic) Triple bypass in July 2015 at [facility] CAD (coronary artery disease) (Chronic) Hypertension, essential (Chronic) DM2 (diabetes mellitus, type 2) (Chronic) Renal cell cancer (Chronic) S/P nephrectomy on January 13, 2016 at Chronic kidney disease (Chronic) Solitary kidney (Chronic) Aortic stenosis (Chronic) Allergies/Adverse Reactions: Allergies losartan potassium [From Cozaar] Allergy (Severe, Verified 08/28/17 04:00) Other valsartan [From Diovan HCT] Allergy (Severe, Verified 08/28/17 04:00) Other amlodipine besylate [From Norvasc] Allergy (Verified 08/28/17 04:00) Other doxazosin mesylate [From Cardura] Allergy (Verified 08/28/17 04:00) Other furosemide [From Lasix] Allergy (Verified 08/28/17 04:00) Other hydrochlorothiazide Allergy (Verified 08/28/17 04:00) Other metoprolol succinate [From Toprol XL] Allergy (Verified 08/28/17 04:00) Other simvastatin Allergy (Verified 08/28/17 04:00) Other oxycodone [From OxyIR] Adverse Reaction (Verified 08/28/17 04:00) Other Hydrogenated Vegetable Oil Adverse Reaction (Uncoded 08/28/17 04:00) Upset Stomach vicodin Adverse Reaction (Uncoded 08/27/17 11:44) Other Home Medications: Ambulatory Orders Medication Instructions Recorded Ascorbic Acid [Vitamin C] 1,000 mg PO DAILY@0800 02/06/16 Multivitamin [Daily Multiple 1 each PO DAILY 02/06/16 Vitamin] Nateglinide [Starlix] 30 mg PO TIDCM 02/06/16 Cholecalciferol (Vitamin D3) 2,000 unit PO DAILY 07/28/17 [Vitamin D3] Docusate Sodium [Colace] 100 mg PO DAILY 07/28/17 Iron Polysaccharide Complex 325 mg PO DAILYCM 07/28/17 [Ferrex 150] Labetalol [Trandate (Beta Liz)] 100 mg PO BID 07/28/17 Diltiazem HCl [Diltiazem ER] 180 mg PO BID 07/29/17 - Social History SMOKING STATUS:: Former smoker Vital Signs Temp Pulse Resp BP Pulse Ox 98.8 F 72 18 152/68 H 97 08/28/17 08:50 08/28/17 08:50 08/28/17 08:50 08/28/17 08:50 08/28/17 08:50 Oxygen Delivery Method Room Air Weight: 93.4 kg Body Mass Index (BMI) 29.5 Microbiology Past 72 Hours 08/28/17 08:35 Gram Stain - Final Fluid - Synovial (joint) Laboratory Tests Past 24 Hrs 08/28/17 08/28/17 08/28/17 06:30 06:30 06:30 WBC 8.2 RBC 3.06 L Hgb 8.5 L Hct 26.5 L MCV 86.6 MCH 27.8 MCHC 32.1 RDW 16.3 H RDW Differential 51.9 H Plt Count 102 L MPV 9.1 Immature Gran % (Auto) 0.200 Neut % (Auto) 71.6 H Lymph % (Auto) 14.6 L [place] % (Auto) 11.9 H Eos % (Auto) 1.5 Baso % (Auto) 0.2 Absolute Neuts (auto) 5.9 Absolute Lymphs (auto) 1.20 Total Counted Not Reportable ESR 44 H Sodium 134 L Potassium 4.3 Chloride 101 Carbon Dioxide 22.0 Anion Gap 11 BUN 54 H Creatinine 3.36 H Estim Creat Clear Calc 19.31 Est GFR (MDRD) Af Amer 23 L Est GFR (MDRD) Non-Af 19 L BUN/Creatinine Ratio 16.1 Glucose 121 H Calcium 8.3 L C-React Prot Ext Range Fluid Source Fluid Color Fluid Appearance Fluid WBC Fluid RBC Fluid Tot Cell Count Fld Polynuclear WBCs # Fld Polynuclear WBCs % Fluid Mononuclear WBCs Fld Mononuclear WBCs % Fluid Neutrophils Fluid Lymphocytes Fluid Monocytes Fluid Plasma Cells Fluid Macrophages Fld Mesothelial Cells Fluid Other Cells Fl Pathologist Comment Fluid Comment 2 Synovial Source Synovial Color Synovial Appearance Synovial Viscosity Synovial WBC Synovial RBC Synovial Tot Cell Ct Synov Polynuclear WBCs Synovial Neutrophils Synovial Lymphocytes Synovial Monocytes Synovial Polynuclear % Synovial Mononuclear % Synovial Path Comment S.aureus Protein A PCR MRSA (PCR) 08/28/17 08/28/17 08/28/17 06:30 08:35 08:35 WBC RBC Hgb Hct MCV MCH MCHC RDW RDW Differential Plt Count MPV Immature Gran % (Auto) Neut % (Auto) Lymph % (Auto) [place] % (Auto) Eos % (Auto) Baso % (Auto) Absolute Neuts (auto) Absolute Lymphs (auto) Total Counted ESR Sodium Potassium Chloride Carbon Dioxide Anion Gap BUN Creatinine Estim Creat Clear Calc Est GFR (MDRD) Af Amer Est GFR (MDRD) Non-Af BUN/Creatinine Ratio Glucose Calcium C-React Prot Ext Range 143.00 H Fluid Source Cancelled Fluid Color Cancelled Fluid Appearance Cancelled Fluid WBC Cancelled Fluid RBC Cancelled Fluid Tot Cell Count Cancelled Fld Polynuclear WBCs # Cancelled Fld Polynuclear WBCs % Cancelled Fluid Mononuclear WBCs Cancelled Fld Mononuclear WBCs % Cancelled Fluid Neutrophils Cancelled Fluid Lymphocytes Cancelled Fluid Monocytes Cancelled Fluid Plasma Cells Cancelled Fluid Macrophages Cancelled Fld Mesothelial Cells Cancelled Fluid Other Cells Cancelled Fl Pathologist Comment Cancelled Fluid Comment 2 Cancelled Synovial Source LEFT KNEE Synovial Color Synovial Appearance Cloudy Synovial Viscosity Sl. Viscous Synovial WBC 44.0640 H Synovial RBC 0.014 H Synovial Tot Cell Ct 44.0870 H Synov Polynuclear WBCs 41.877 Synovial Neutrophils 94 H Synovial Lymphocytes 3 Synovial Monocytes 3 Synovial Polynuclear % 95.0 Synovial Mononuclear % 5.0 Synovial Path Comment May follow S.aureus Protein A PCR Cancelled MRSA (PCR) Cancelled - Other Studies Radiology: [] reviewed Other Studies: [] Route of nutrition/ use of supplements: [] Nutritional Intake: [] IV Site: [] Irving Catheter: [] - Physical Exam General: Alert, Oriented x3, Cooperative, No apparent distress HEENT: Atraumatic, PERRLA, EOMI Neck: Supple, No Nodes Lungs: Clear to auscultation, Normal air movement Cardiovascular: Regular rate, Regular Rhythm, Murmur Abdomen: Bowel Sounds Present, Soft, Non Tender, Non-Distended Extremities: No edema Skin: No rashes, - - L 2nd toe with splinter hemorrhage. Musculoskeletal: - - L knee soreness, wrapped. No other joint or spine pain/redness/warmth. 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 Has h/o CKD and bioprosthetic AVR - repeat bcx today and tomorrow. Await final susceptibilities. Surgical debridement with arthroplasty planned. Will order TTE. Cont vanc. Will narrow zosyn to ampicillin. Has splinter hemorrhage on L 2nd toe, no other signs of endocarditis. Thank you, will follow.
--- NOTE | 2017-08-28 12:34 | CON.PCM_ITS ---
Problem List (1) Bacteremia due to Enterococcus Status: Acute Reason for Consult: bacteremia Consulted by: Dr. Lu History of Present Illness: The patient is a 76 year old M with h/o prosthetic valve replacement who presented early this AM with two days of severe, progressive L knee pain/ swelling/warmth. Was admitted in July with enterococcus bacteremia of unclear source. TIM showed no endocarditis, discharged on 2 weeks total of iv ampicillin, completed 08/15, picc was removed, and he was feeling well until knee started to hurt. No other artificial material in body. No other joint/ back pain. No fever or chills. Came to ED 08/27, pt requested bcx drawn, and he was sent home. Bcx turned (+) for enterococcus, called to return to hospital. Knee aspirated this AM with heavy purulence seen. Full ROS performed and neg except as noted above. - Medical History Past Medical History (Chronic Problems): Chronic Problems Hyperlipidemia (Chronic) Hypertension (Chronic) Osteoarthritis of left knee (Chronic) S/P CABG x 3 (Chronic) Triple bypass in July 2015 at [facility] CAD (coronary artery disease) (Chronic) Hypertension, essential (Chronic) DM2 (diabetes mellitus, type 2) (Chronic) Renal cell cancer (Chronic) S/P nephrectomy on January 13, 2016 at Chronic kidney disease (Chronic) Solitary kidney (Chronic) Aortic stenosis (Chronic) Allergies/Adverse Reactions: Allergies losartan potassium [From Cozaar] Allergy (Severe, Verified 08/28/17 04:00) Other valsartan [From Diovan HCT] Allergy (Severe, Verified 08/28/17 04:00) Other amlodipine besylate [From Norvasc] Allergy (Verified 08/28/17 04:00) Other doxazosin mesylate [From Cardura] Allergy (Verified 08/28/17 04:00) Other furosemide [From Lasix] Allergy (Verified 08/28/17 04:00) Other hydrochlorothiazide Allergy (Verified 08/28/17 04:00) Other metoprolol succinate [From Toprol XL] Allergy (Verified 08/28/17 04:00) Other simvastatin Allergy (Verified 08/28/17 04:00) Other oxycodone [From OxyIR] Adverse Reaction (Verified 08/28/17 04:00) Other Hydrogenated Vegetable Oil Adverse Reaction (Uncoded 08/28/17 04:00) Upset Stomach vicodin Adverse Reaction (Uncoded 08/27/17 11:44) Other Home Medications: Ambulatory Orders Medication Instructions Recorded Ascorbic Acid [Vitamin C] 1,000 mg PO DAILY@0800 02/06/16 Multivitamin [Daily Multiple 1 each PO DAILY 02/06/16 Vitamin] Nateglinide [Starlix] 30 mg PO TIDCM 02/06/16 Cholecalciferol (Vitamin D3) 2,000 unit PO DAILY 07/28/17 [Vitamin D3] Docusate Sodium [Colace] 100 mg PO DAILY 07/28/17 Iron Polysaccharide Complex 325 mg PO DAILYCM 07/28/17 [Ferrex 150] Labetalol [Trandate (Beta Liz)] 100 mg PO BID 07/28/17 Diltiazem HCl [Diltiazem ER] 180 mg PO BID 07/29/17 - Social History SMOKING STATUS:: Former smoker Vital Signs Temp Pulse Resp BP Pulse Ox 98.8 F 72 18 152/68 H 97 08/28/17 08:50 08/28/17 08:50 08/28/17 08:50 08/28/17 08:50 08/28/17 08:50 Oxygen Delivery Method Room Air Weight: 93.4 kg Body Mass Index (BMI) 29.5 Microbiology Past 72 Hours 08/28/17 08:35 Gram Stain - Final Fluid - Synovial (joint) Laboratory Tests Past 24 Hrs 08/28/17 08/28/17 08/28/17 06:30 06:30 06:30 WBC 8.2 RBC 3.06 L Hgb 8.5 L Hct 26.5 L MCV 86.6 MCH 27.8 MCHC 32.1 RDW 16.3 H RDW Differential 51.9 H Plt Count 102 L MPV 9.1 Immature Gran % (Auto) 0.200 Neut % (Auto) 71.6 H Lymph % (Auto) 14.6 L [place] % (Auto) 11.9 H Eos % (Auto) 1.5 Baso % (Auto) 0.2 Absolute Neuts (auto) 5.9 Absolute Lymphs (auto) 1.20 Total Counted Not Reportable ESR 44 H Sodium 134 L Potassium 4.3 Chloride 101 Carbon Dioxide 22.0 Anion Gap 11 BUN 54 H Creatinine 3.36 H Estim Creat Clear Calc 19.31 Est GFR (MDRD) Af Amer 23 L Est GFR (MDRD) Non-Af 19 L BUN/Creatinine Ratio 16.1 Glucose 121 H Calcium 8.3 L C-React Prot Ext Range Fluid Source Fluid Color Fluid Appearance Fluid WBC Fluid RBC Fluid Tot Cell Count Fld Polynuclear WBCs # Fld Polynuclear WBCs % Fluid Mononuclear WBCs Fld Mononuclear WBCs % Fluid Neutrophils Fluid Lymphocytes Fluid Monocytes Fluid Plasma Cells Fluid Macrophages Fld Mesothelial Cells Fluid Other Cells Fl Pathologist Comment Fluid Comment 2 Synovial Source Synovial Color Synovial Appearance Synovial Viscosity Synovial WBC Synovial RBC Synovial Tot Cell Ct Synov Polynuclear WBCs Synovial Neutrophils Synovial Lymphocytes Synovial Monocytes Synovial Polynuclear % Synovial Mononuclear % Synovial Path Comment S.aureus Protein A PCR MRSA (PCR) 08/28/17 08/28/17 08/28/17 06:30 08:35 08:35 WBC RBC Hgb Hct MCV MCH MCHC RDW RDW Differential Plt Count MPV Immature Gran % (Auto) Neut % (Auto) Lymph % (Auto) [place] % (Auto) Eos % (Auto) Baso % (Auto) Absolute Neuts (auto) Absolute Lymphs (auto) Total Counted ESR Sodium Potassium Chloride Carbon Dioxide Anion Gap BUN Creatinine Estim Creat Clear Calc Est GFR (MDRD) Af Amer Est GFR (MDRD) Non-Af BUN/Creatinine Ratio Glucose Calcium C-React Prot Ext Range 143.00 H Fluid Source Cancelled Fluid Color Cancelled Fluid Appearance Cancelled Fluid WBC Cancelled Fluid RBC Cancelled Fluid Tot Cell Count Cancelled Fld Polynuclear WBCs # Cancelled Fld Polynuclear WBCs % Cancelled Fluid Mononuclear WBCs Cancelled Fld Mononuclear WBCs % Cancelled Fluid Neutrophils Cancelled Fluid Lymphocytes Cancelled Fluid Monocytes Cancelled Fluid Plasma Cells Cancelled Fluid Macrophages Cancelled Fld Mesothelial Cells Cancelled Fluid Other Cells Cancelled Fl Pathologist Comment Cancelled Fluid Comment 2 Cancelled Synovial Source LEFT KNEE Synovial Color Synovial Appearance Cloudy Synovial Viscosity Sl. Viscous Synovial WBC 44.0640 H Synovial RBC 0.014 H Synovial Tot Cell Ct 44.0870 H Synov Polynuclear WBCs 41.877 Synovial Neutrophils 94 H Synovial Lymphocytes 3 Synovial Monocytes 3 Synovial Polynuclear % 95.0 Synovial Mononuclear % 5.0 Synovial Path Comment May follow S.aureus Protein A PCR Cancelled MRSA (PCR) Cancelled - Other Studies Radiology: [] reviewed Other Studies: [] Route of nutrition/ use of supplements: [] Nutritional Intake: [] IV Site: [] Irving Catheter: [] - Physical Exam General: Alert, Oriented x3, Cooperative, No apparent distress HEENT: Atraumatic, PERRLA, EOMI Neck: Supple, No Nodes Lungs: Clear to auscultation, Normal air movement Cardiovascular: Regular rate, Regular Rhythm, Murmur Abdomen: Bowel Sounds Present, Soft, Non Tender, Non-Distended Extremities: No edema Skin: No rashes, - - L 2nd toe with splinter hemorrhage. Musculoskeletal: - - L knee soreness, wrapped. No other joint or spine pain/ redness/warmth. 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 Has h/o CKD and bioprosthetic AVR - repeat bcx today and tomorrow. Await final susceptibilities. Surgical debridement with arthroplasty planned. Will order TTE. Cont vanc. Will narrow zosyn to ampicillin. Has splinter hemorrhage on L 2nd toe, no other signs of endocarditis. Thank you, will follow.
--- NOTE | 2017-08-28 12:47 | CON.PCM_ITS ---
Reason for Consult Date of Consultation: 08/28/17 Reason for Consultation: Septic left total knee replacement. Requested by Dr. Todd Dominguez History of Present Illness: The patient is a 76 year old M presents today with left knee pain. Patient has history of diabetes and renal cancer with previous unilateral kidney removal. Patient had left total knee replacement in September 2016. Patient was admitted to the hospital in December 26, 2017 for enterococcus bacteremia. Initial blood cultures did reveal pansensitive bacteria. Patient had an echocardiogram at that time was not noted to have any significant cardiac valve vegetations. Patient received IV antibiotics and was discharged from the hospital. He was discharged on ampicillin infusions. He discontinued these infusions on August 15 at which time he was asymptomatic. Yesterday morning patient awoke with severe left knee pain and swelling. He had stated decrease in range of motion. He also had increased warmth around the knee. Pain was made worse with weightbearing and range of motion. He also had increased temperatures at home measured greater than 99?. He presented to the hospital where a blood culture was taken. He was initially sent home from the emergency department but called back to the hospital last evening with enterococcus bacteremia. He did have an aspiration this morning by Dr. Dominguez which yielded 44,000 we will white blood cells with 94% neutrophils. Fluid was cloudy. CRP and ESR are both elevated. He is currently on IV antibiotics both ampicillin and cefazolin. ID has been consulted. Past Medical History Past Medical History (Chronic Problems): Chronic Problems Hyperlipidemia (Chronic) Hypertension (Chronic) Osteoarthritis of left knee (Chronic) S/P CABG x 3 (Chronic) Triple bypass in July 2015 at [facility] in [place] CAD (coronary artery disease) (Chronic) Hypertension, essential (Chronic) DM2 (diabetes mellitus, type 2) (Chronic) Renal cell cancer (Chronic) S/P nephrectomy on January 13, 2016 at Chronic kidney disease (Chronic) Solitary kidney (Chronic) Aortic stenosis (Chronic) Allergies losartan potassium [From Cozaar] Allergy (Severe, Verified 08/28/17 04:00) Other valsartan [From Diovan HCT] Allergy (Severe, Verified 08/28/17 04:00) Other amlodipine besylate [From Norvasc] Allergy (Verified 08/28/17 04:00) Other doxazosin mesylate [From Cardura] Allergy (Verified 08/28/17 04:00) Other furosemide [From Lasix] Allergy (Verified 08/28/17 04:00) Other hydrochlorothiazide Allergy (Verified 08/28/17 04:00) Other metoprolol succinate [From Toprol XL] Allergy (Verified 08/28/17 04:00) Other simvastatin Allergy (Verified 08/28/17 04:00) Other oxycodone [From OxyIR] Adverse Reaction (Verified 08/28/17 04:00) Other Hydrogenated Vegetable Oil Adverse Reaction (Uncoded 08/28/17 04:00) Upset Stomach vicodin Adverse Reaction (Uncoded 08/27/17 11:44) Other Home Medications: Ambulatory Orders Medication Instructions Recorded Ascorbic Acid [Vitamin C] 1,000 mg PO DAILY@0800 02/06/16 Multivitamin [Daily Multiple 1 each PO DAILY 02/06/16 Vitamin] Nateglinide [Starlix] 30 mg PO TIDCM 02/06/16 Cholecalciferol (Vitamin D3) 2,000 unit PO DAILY 07/28/17 [Vitamin D3] Docusate Sodium [Colace] 100 mg PO DAILY 07/28/17 Iron Polysaccharide Complex 325 mg PO DAILYCM 07/28/17 [Ferrex 150] Labetalol [Trandate (Beta Liz)] 100 mg PO BID 07/28/17 Diltiazem HCl [Diltiazem ER] 180 mg PO BID 07/29/17 Surgical History: cataract, coronary bypass surgery - X 3., herniorrhaphy - Umbilical., - - Hemorrhoidectomy, aortic valve replacement (bovine), cardiac stent, right nephrectomy 01/15/2016. Psychiatric History: No pertinent psych hx Lives: Spouse/ Significant Other Smoking Status: Former smoker Tobacco Use: Non-smoker Alcohol: None Drugs: None - *Family History Sibling History Items: Diabetes Paternal History Items: No pertinent history Maternal History Items: Cancer - breast Review of Systems Constitutional: Reports: Chills, Fever. Denies: Anorexia HEENT: Denies: Head Aches, Sinus Congestion, Sinus Drainage Cardiovascular: Denies: Chest Pain, Palpitations Respiratory: Denies: Cough, Shortness of breath at rest, Sputum production Gastrointestinal: Denies: Abdominal Pain, Nausea, Vomiting Genitourinary: Denies: Dysuria Musculoskeletal: Reports: - - See HPI Skin: Denies: Rash, Wounds Neurological: Denies: Numbness, Tingling, Focal weakness Psychiatric: Denies: Anxiety, Depression, Homicidal Ideations, Suicidal Ideations Hematologic/ Lymphatic: Denies: Easy Bruising, Easy Bleeding Patient Problems: Active and Suspected Problems Septic arthritis (Acute) Bacteremia due to Enterococcus (Acute) Objective: Left knee radiographs are reviewed showing a well aligned stable left posterior stabilized total knee replacement. Review of fluid was reviewed showing cloudy fluid with 44,000 white blood cells , 94% neutrophils. ESR is 44, CRP is 143. - Physical Exam General: Alert, Oriented x3, Cooperative HEENT: Atraumatic Neck: No JVD Extremities: - - Left lower extremity: Left knee has large effusion. Incision is clean dry and intact minimal overlying erythema. Knee has increased warmth to touch. Pain with range of motion. Range of motion is 5-95. Stable to varus and valgus stress. Vital Signs Temp Pulse Resp BP Pulse Ox 98.8 F 72 18 152/68 H 97 08/28/17 08:50 08/28/17 08:50 08/28/17 08:50 08/28/17 08:50 08/28/17 08:50 Oxygen Delivery Method Room Air Weight: 205 lb 14.588 oz Body Mass Index (BMI) 29.5 Intake and Output for Last 24 Hours 08/26/17 08/27/17 08/28/17 23:59 23:59 23:59 Output Total 300 / 300 Balance -300 / -300 Microbiology Past 72 Hours 08/28/17 08:35 Gram Stain - Final Fluid - Synovial (joint) Laboratory Tests Past 24 Hrs 08/28/17 08/28/17 08/28/17 06:30 06:30 06:30 WBC 8.2 RBC 3.06 L Hgb 8.5 L Hct 26.5 L MCV 86.6 MCH 27.8 MCHC 32.1 RDW 16.3 H RDW Differential 51.9 H Plt Count 102 L MPV 9.1 Immature Gran % (Auto) 0.200 Neut % (Auto) 71.6 H Lymph % (Auto) 14.6 L [place] % (Auto) 11.9 H Eos % (Auto) 1.5 Baso % (Auto) 0.2 Absolute Neuts (auto) 5.9 Absolute Lymphs (auto) 1.20 Total Counted Not Reportable ESR 44 H Sodium 134 L Potassium 4.3 Chloride 101 Carbon Dioxide 22.0 Anion Gap 11 BUN 54 H Creatinine 3.36 H Estim Creat Clear Calc 19.31 Est GFR (MDRD) Af Amer 23 L Est GFR (MDRD) Non-Af 19 L BUN/Creatinine Ratio 16.1 Glucose 121 H Calcium 8.3 L C-React Prot Ext Range Fluid Source Fluid Color Fluid Appearance Fluid WBC Fluid RBC Fluid Tot Cell Count Fld Polynuclear WBCs # Fld Polynuclear WBCs % Fluid Mononuclear WBCs Fld Mononuclear WBCs % Fluid Neutrophils Fluid Lymphocytes Fluid Monocytes Fluid Plasma Cells Fluid Macrophages Fld Mesothelial Cells Fluid Other Cells Fl Pathologist Comment Fluid Comment 2 Synovial Source Synovial Color Synovial Appearance Synovial Viscosity Synovial WBC Synovial RBC Synovial Tot Cell Ct Synov Polynuclear WBCs Synovial Neutrophils Synovial Lymphocytes Synovial Monocytes Synovial Polynuclear % Synovial Mononuclear % Synovial Path Comment S.aureus Protein A PCR MRSA (PCR) 08/28/17 08/28/17 08/28/17 06:30 08:35 08:35 WBC RBC Hgb Hct MCV MCH MCHC RDW RDW Differential Plt Count MPV Immature Gran % (Auto) Neut % (Auto) Lymph % (Auto) [place] % (Auto) Eos % (Auto) Baso % (Auto) Absolute Neuts (auto) Absolute Lymphs (auto) Total Counted ESR Sodium Potassium Chloride Carbon Dioxide Anion Gap BUN Creatinine Estim Creat Clear Calc Est GFR (MDRD) Af Amer Est GFR (MDRD) Non-Af BUN/Creatinine Ratio Glucose Calcium C-React Prot Ext Range 143.00 H Fluid Source Cancelled Fluid Color Cancelled Fluid Appearance Cancelled Fluid WBC Cancelled Fluid RBC Cancelled Fluid Tot Cell Count Cancelled Fld Polynuclear WBCs # Cancelled Fld Polynuclear WBCs % Cancelled Fluid Mononuclear WBCs Cancelled Fld Mononuclear WBCs % Cancelled Fluid Neutrophils Cancelled Fluid Lymphocytes Cancelled Fluid Monocytes Cancelled Fluid Plasma Cells Cancelled Fluid Macrophages Cancelled Fld Mesothelial Cells Cancelled Fluid Other Cells Cancelled Fl Pathologist Comment Cancelled Fluid Comment 2 Cancelled Synovial Source LEFT KNEE Synovial Color Synovial Appearance Cloudy Synovial Viscosity Sl. Viscous Synovial WBC 44.0640 H Synovial RBC 0.014 H Synovial Tot Cell Ct 44.0870 H Synov Polynuclear WBCs 41.877 Synovial Neutrophils 94 H Synovial Lymphocytes 3 Synovial Monocytes 3 Synovial Polynuclear % 95.0 Synovial Mononuclear % 5.0 Synovial Path Comment May follow S.aureus Protein A PCR Cancelled MRSA (PCR) Cancelled POC Glucose 08/28/17 08/28/17 10:49 06:15 POC Glucose 180 H 135 H Assessment/Plan Active and Suspected Problems Septic arthritis (Acute) Bacteremia due to Enterococcus (Acute) Acutely septic left total knee replacement. 1. Treatment options were discussed the patient. At this time I recommended surgical debridement with polyethylene exchange and IV antibiotics. Infectious disease has been consulted on this patient for long-term antibiotic treatment. We also discussed antibiotic spacer and removal of the implants. Based on the short duration of his knee pain symptoms I feel the polyethylene exchange is warranted. However I did discuss with him the risk of failure of this treatment option with a lower success rate then two-stage revision. Risks and benefits of the procedure were also discussed the patient including but not limited to blood loss, DVTs, PEs, neurovascular damage, infection, continued infection or inability to clear the infection and general risk of anesthesia. Patient demonstrated understanding wishes to proceed with polyethylene exchange & debridement tomorrow morning. 2. N.p.o. after midnight 3. Patient currently on IV antibiotics 4. Lab was able to swab the fluid for MRSA which was negative however this is not an FDA approved use of this test. Cultures at this time are only positive for enterococcus in the blood. Gram stain on the fluid is currently negative. 5. Patient needs 4 out of 6 MSIS criteria for infection including increased cell count increased neutrophil percentage, purulent fluid and elevated ESR and CRP serum blood markers. [facility] Office:
--- NOTE | 2017-08-28 12:55 | EKG12_ITS ---
Test Reason : PREOP Blood Pressure : / mmHG Vent. Rate : 077 BPM Atrial Rate : 077 BPM P-R Int : 188 ms QRS Dur : 110 ms QT Int : 422 ms P-R-T Axes : 063 002 092 degrees QTc Int : 477 ms Sinus rhythm with occasional Premature ventricular complexes Incomplete left bundle branch block Borderline ECG When compared with ECG of 28-JUL-2017 00:57, Premature ventricular complexes are now Present Confirmed by NAVDEEP WILLIS, ANJELICA ([id number]), photo editor JOHN TATUM ([id number]) on 09/09/2017 1:53:56 PM Referred By: Dejuan Catherine Confirmed By:ANJELICA SETHI MD
[2017-08-28 14:08] VITALS: BP 140/68; PULSE 72; RESP 16; TEMP 36.6; O2SAT 97
[2017-08-28 19:01] LABS: Bedside Glucose 123 mg/dL (70-110)
[2017-08-28 20:32] VITALS: BP 149/73; PULSE 81; RESP 19; TEMP 37.7; O2SAT 98
[2017-08-28 22:35] LABS: Bedside Glucose 115 mg/dL (70-110)
[2017-08-29] VITALS (13 sets, daily range): BP systolic 108–180; BP diastolic 56–88; PULSE 64–87; RESP 14–18; TEMP 35.7–37.2; O2SAT 94–100; BMI 29.5; BMI 29.0
[2017-08-29 06:45] LABS: Bedside Glucose 114 mg/dL (70-110)
[2017-08-29 06:48] LABS: Absolute Lymphocyte Count 1.03 X10^3/ul (0.83-4.51); Absolute Neutrophil Count 5.5 X10^3/uL (2.0-7.7); Basophil# 0.02 X10^3/uL; Basophil% 0.3 % (0-1); Eosinophil# 0.15 X10^3/uL; Eosinophils% 1.9 % (0-5); Hematocrit 27.8 % (40-54); Lymphocyte # 1.03 X10^3/ul (4.0); Lymphocyte % 13.3 % (19-41); Mean Corp Hgb Conc 32.4 g/gl (32-36); Mean Corpuscular Hgb 28.5 pg (27.0-32.0); Mean Platelet Vol. 9.5 fl (6.2-12.0); Monocyte# 1.02 X10^3/uL; Monocyte% 13.2 % (0-10); Neutrophil # 5.51 X10^3/uL (2.7-7.7); Platelet Count 128 K/mm3 (150-450); RBC Distribution Width CV 15.7 % (11.6-14.6); RBC Distribution Width SD 49.4 fl (35.1-43.9); Red Blood Count 3.16 M/mm3 (4.6-6.2); White Blood Count 7.8 K/mm3 (4.4-11.0)
[2017-08-29 06:50] LABS: POSITIVE COUNT NO; POSITIVE DIFFERENTIAL NO; POSITIVE MORPHOLOGY NO
[2017-08-29 06:53] LABS: International Normalized Ratio 1.2; Prothrombin Time (Protime)PT. 14.6 SECONDS (11.7-14.9)
[2017-08-29 06:54] LABS: Partial Thromboplast Time 42.2 Seconds (24.1-36.2)
[2017-08-29 06:59] LABS: Anion Gap 9 (5-15); BUN 58 mg/dL (7-18); Calcium,Total 8.5 mg/dL (8.5-10.1); Chloride 102 mmol/L (98-107); Creatinine, Serum 3.42 mg/dL (0.70-1.30); EST Glomerular Filtration Rate 19 mL/min (>60); Est Glom Filt Rate - Afr Amer 23 mL/min (>60); Estimated Creatinine Clearance 18.97 ml/min; Glucose 122 mg/dL (74-106); Sodium Level 135 mmol/L (136-145)
--- NOTE | 2017-08-29 07:42 | NURSING ---
attempted to call report to [phone]
--- NOTE | 2017-08-29 08:43 | OP.PCM_ITS ---
Report of Operation Date of Procedure: 08/29/17 Pre-Operative Diagnosis: Left knee periprosthetic infection Post-Operative Diagnosis: Left knee periprosthetic infection Surgery/Procedure Performed:: Irrigation debridement, complete synovectomy left knee. Left knee polyethylene exchange 1 component revision Description of Surgical Findings:: Complete synovectomy was performed. Gross purulence was encountered in the joint. project control analyst: Saleem Fox Type of Anesthesia:: General Anesthesiologist: Kimberlyn Gonzalez Special Medications: Patient received ampicillin antibiotics scheduled on the floor, 1 g TXA was placed in the wound. 2 g vancomycin placed in the wound. Estimated Blood Loss (mL): 75 Fluids Replaced: 800 mL crystalloid Description of Procedure: 76 yo M history of L TKA in 09/2016 presents with 48 hours of left knee pain, swelling and enterococcus faecalis septicemia. Reviewed options were discussed the patient. Based on acuity of the symptoms and organism irrigation debridement with polyethylene exchange is recommended. Risks and benefits of the procedure were discussed with the patient including but not limited to blood loss, DVTs, PEs, neurovascular damage, infection, general risk of anesthesia including loss of life. Demonstrated understanding and was able to sign informed consent. On the date of procedure patient's L lower extremity was marked in the preoperative area. The patient was then taken back to the operating room where the patient was placed on the table in the supine position. All bony prominences were identified a well-padded. Anesthesia assumed control of the C- spine and airway and remained controlled throughout the remainder of the procedure. A tourniquet was placed on the operative thigh and the leg was prepped in a sterile fashion. The surgeon then scrubbed at this time .Upon reentering the room left lower extremity was draped in a standard orthopedic fashion. A timeout was then called and everyone agreed upon the side, the site, the procedure to be performed, patient's identity and antibiotics given. A midline skin incision was made and sharp dissection was taken down through skin subcutaneous tissue and fat. Appropriate flaps were elevated medially and laterally. His arthrotomy was identified and the standard medial parapatellar incision was made and the patella was subluxed laterally. The standard deep MCL release was done. At this point an aggressive synovectomy commenced. Our attention was first turned towards the subpatellar pouch and all suspicious synovium and tissues were debrided. We then directed our attention towards medial lateral gutters were these tissues were aggressively debrided. Knee was then flexed up the polyethylene was removed. Once polyethylene was removed we did the remainder of the synovium in the medial and lateral gutters and along the lateral structures and MCL. We then debrided the posterior knee. Knee was flexed up and culture was taken from the femoral notch. And also there was a membrane beneath the tibial baseplate that was removed and sent for culture. He had completed our synovectomy and were happy with the joint. We then used a chlorahexadine scrub sponge and physically scrub the metal implants using a scrub sponge but nothing abrasive. We also scrubbed the remainder of the wound with chlorhexidine. 6 L of normal saline were then irrigated throughout the wound with low-pressure lavage and the wound was once again explored. All remaining tissue that was suspicious was seen in the wound was once again irrigated with normal saline. 9 mm polyethylene was then opened and put back into place after appropriate trialing. Tourniquet was let down and hemostasis was obtained as well as possible. Lateral drain was placed in 2 g of vancomycin powder were placed in the wound/joint. Once the final components were placed the wound was copiously irrigated with normal saline solution. The wound was closed in a layer agosto fashion using #1 vicryl interrupted sutures for the arthrotomy, 2-0 interrupted Vicryl for the subcuticular layer and feli for final skin closure. A sterile compressive dressing was then placed. The patient was then awakened from anesthesia, transferred to the [facility] and transferred to the PACU for recovery. Post op plan Patient will remain on IV antibiotics postoperatively. Infectious disease has been consulted. Xarelto for DVT prophylaxis. Weight-bear as tolerated, activity as tolerated. Follow-up in 2 weeks for wound check. Grafts/Implants Used: 9 mm PS size 5, X3 polyethylene, Camilo - Complications None - Admit VTE Documentation VTE Present on Admission: No VTE Mechan Device Prophylaxis: SCD's, Thigh High JUANA Hose VTE Pharm Prophylaxis ordered?: Yes
--- NOTE | 2017-08-29 09:25 | EKG12_ITS ---
Test Reason : Blood Pressure : / mmHG Vent. Rate : 074 BPM Atrial Rate : 074 BPM P-R Int : 196 ms QRS Dur : 114 ms QT Int : 440 ms P-R-T Axes : 036 020 088 degrees QTc Int : 488 ms Normal sinus rhythm Incomplete left bundle branch block Prolonged QT Abnormal ECG When compared with ECG of 28-AUG-2017 13:43, MANUAL COMPARISON REQUIRED, DATA IS UNCONFIRMED Confirmed by NAVDEEP WILLIS, ANJELICA ([id number]), slot editor JOHN TATUM ([id number]) on 09/02/2017 2:35:42 PM Referred By: Dejuan Catherine Confirmed By:ANJELICA SETHI MD
[2017-08-29 09:41] LABS: Bedside Glucose 129 mg/dL (70-110)
[2017-08-29] MEDS: Scopolamine 1mg/72hr Patch 1 PATCH TD (09:45)
[2017-08-29] MEDS: Lactated Ringers 1,000 ML 999 ML IV (09:45)
[2017-08-29 11:56] LABS: Bedside Glucose 147 mg/dL (70-110)
--- NOTE | 2017-08-29 12:49 | PCM.PN.HOSP ---
Patient Problems: Active and Suspected Problems Septic arthritis (Acute) Bacteremia due to Enterococcus (Acute) Subjective: s/p I+D, synovectomy on polyethylene exchange Vitals/I&O's: Vital Signs Temp Pulse Resp BP Pulse Ox 35.7 C L 65 14 148/69 H 99 08/29/17 10:48 08/29/17 10:48 08/29/17 10:48 08/29/17 10:48 08/29/17 10:48 Oxygen Flow Rate 2 Oxygen Delivery Method Nasal Cannula Weight: 93.4 kg Body Mass Index (BMI) 29.5 Finger Stick Blood Glucose 129 Intake and Output for Last 24 Hours 08/27/17 08/28/17 08/29/17 23:59 23:59 23:59 Intake Total 2081 Output Total 2024 1450 / 1450 Balance 57 / 57 556 / 556 General: Alert, Cooperative, No apparent distress HEENT: Atraumatic, Normocephalic Neck: No Nodes, Thyroid Normal Size and Texture Lungs: Clear to auscultation, Normal air movement, No rhonchi, No wheeze Cardiovascular: Regular rate, Regular Rhythm, Normal S1, Normal S2 Abdomen: Bowel Sounds Present, Soft, Non Tender, Non-Distended, No Hepato-splenomegaly Extremities: No Calf Tenderness Psych/Mental Status: Normal Affect, Appropriate Microbiology Past 72 Hours 08/28/17 08:35 Fluid - Synovial (joint) Gram Stain - Final 08/28/17 08:35 Fluid - Synovial (joint) Body Fluid Culture - Preliminary Laboratory Results 08/28/17 12:40: Troponin I 0.03 08/28/17 17:07: POC Glucose 123 H 08/28/17 19:08: Troponin I 0.03 08/28/17 22:28: POC Glucose 115 H 08/29/17 06:28: WBC 7.8, RBC 3.16 L, Hgb 9.0 L, Hct 27.8 L, MCV 88.0, MCH 28.5, MCHC 32.4, RDW 15.7 H, RDW Differential 49.4 H, Plt Count 128 L, MPV 9.5, Immature Gran % (Auto) 0.300, Neut % (Auto) 71.0 H, Lymph % (Auto) 13.3 L, [place] % (Auto) 13.2 H, Eos % (Auto) 1.9, Baso % (Auto) 0.3, Absolute Neuts (auto) 5.5, Absolute Lymphs (auto) 1.03, Total Counted Not Reportable 08/29/17 06:28: Sodium 135 L, Potassium 4.0, Chloride 102, Carbon Dioxide 24.0, Anion Gap 9, BUN 58 H, Creatinine 3.42 H, Estim Creat Clear Calc 18.97, Est GFR (MDRD) Af Amer 23 L, Est GFR (MDRD) Non-Af 19 L, BUN/Creatinine Ratio 17.0, Glucose 122 H, Calcium 8.5 08/29/17 06:28: PT 14.6, INR 1.2, APTT 42.2 H 08/29/17 06:31: POC Glucose 114 H 08/29/17 09:34: POC Glucose 129 H 08/29/17 11:17: POC Glucose 147 H 08/29/17 : Troponin I < 0.02 Current Medications Acetaminophen (Tylenol) 650 mg PO Q4H PRN PRN PRN Reason: FEVER Acetaminophen (Tylenol) 650 mg PO Q6H PRN PRN PRN Reason: PAIN Ascorbic Acid (Vitamin C) 1,000 mg PO DAILY@0800 [facility] Last Admin: 08/28/17 08:51 Dose: 1,000 mg Bisacodyl (Dulcolax) 5 mg PO DAILY PRN PRN PRN Reason: Constipation Cholecalciferol (Vitamin D) 2,000 unit PO DAILY [facility] Last Admin: 08/28/17 10:54 Dose: 2,000 unit Dextrose (D50w Syringe) 0 gm IV X1 PRN; Protocol PRN Reason: Hypoglycemia Diltiazem HCl (Cardizem Cd) 180 mg PO BID [facility] Last Admin: 08/28/17 20:45 Dose: 180 mg Docusate Sodium (Colace) 100 mg PO DAILY [facility] Last Admin: 08/28/17 10:54 Dose: 100 mg Famotidine (Pepcid) 20 mg PO DAILY [facility] Ferrous Sulfate (Ferrous Sulfate) 325 mg PO DAILYCM [facility] Last Admin: 08/28/17 08:52 Dose: 325 mg Glucagon () 1 mg IM .X1 PRN PRN Reason: Hypoglycemia Ampicillin Sodium 2 gm/ Sodium (Chloride) 100 mls @ 150 mls/hr IV Q12 [facility] Last Admin: 08/29/17 11:18 Dose: 150 mls/hr Insulin Aspart (Novolog Flexpen (Bkc)) 0 units SC ACHS KRANTHI PRN Reason: Protocol Last Admin: 08/29/17 11:17 Dose: Not Given Labetalol HCl (Trandate) 100 mg PO BID [facility] Last Admin: 08/28/17 20:45 Dose: 100 mg Magnesium Hydroxide (Milk Of Magnesia) 30 ml PO DAILY PRN PRN PRN Reason: Constipation Morphine Sulfate (Morphine) 2 - 4 mg IV Q2H PRN PRN PRN Reason: SEVERE PAIN (6-1010) Multivitamins (Multivitamin) 1 tablet PO DAILYCM [facility] Last Admin: 08/28/17 08:52 Dose: 1 tablet Nateglinide (Starlix) 30 mg PO TIDCM [facility] Last Admin: 08/29/17 11:21 Dose: Not Given Nutritional Formula (Lactose Free) (Glucerna Shake) 120 ml PO TIDCM [facility] Last Admin: 08/29/17 11:18 Dose: Not Given Ondansetron HCl (Zofran) 4 mg IV Q8H PRN PRN PRN Reason: NAUSEA Promethazine HCl (Phenergan (Ll)) 12.5 mg IM Q6H PRN PRN; Protocol PRN Reason: NAUSEA/VOMITING Rivaroxaban (Xarelto) 10 mg PO DAILY@0600 [facility] Senna/Docusate Sodium (Senokot-S, Lesia-Colace) 2 tablet PO BID [facility] Sodium Chloride () 5 - 30 ml IV UD PRN PRN Reason: SALINE FLUSH Tramadol HCl (Ultram (G)) 50 - 100 mg PO Q12H PRN PRN Reason: MOD-SEVERE PAIN (4-1010) Assessment/Plan Active and Suspected Problems Septic arthritis (Acute) Bacteremia due to Enterococcus (Acute) 1. Bacteremia: + Enterococcus ampicillin ID on consult 2. L knee septic arthritis s/p I+D, synovectomy and polyethelene exchange alf IV abx would favor tunnelled PICC given CKD 3. CKD IV monitor creatinine closely if worsens, consult nephrology 4. anemia: normocytic low iron, normal ferritin likely anemia of chronic disease monitor no need for transfusions 5. DVT proph: SCDs DW patient's at bedside. Greater than 35 min of which greater than 50% of the time was discussing with the patient and his about IV abx, tunnelled PICC and future expectations. Code Visit Inpatient E&M: 97069 Subs Hosp L3
--- NOTE | 2017-08-29 12:52 | PN_ITS ---
Patient Problems: Active and Suspected Problems Septic arthritis (Acute) Bacteremia due to Enterococcus (Acute) Subjective: s/p I+D, synovectomy on polyethylene exchange Vitals/I&O's: Vital Signs Temp Pulse Resp BP Pulse Ox 35.7 C L 65 14 148/69 H 99 08/29/17 10:48 08/29/17 10:48 08/29/17 10:48 08/29/17 10:48 08/29/17 10:48 Oxygen Flow Rate 2 Oxygen Delivery Method Nasal Cannula Weight: 93.4 kg Body Mass Index (BMI) 29.5 Finger Stick Blood Glucose 129 Intake and Output for Last 24 Hours 08/27/17 08/28/17 08/29/17 23:59 23:59 23:59 Intake Total 2081 Output Total 2024 1450 / 1450 Balance 57 / 57 556 / 556 General: Alert, Cooperative, No apparent distress HEENT: Atraumatic, Normocephalic Neck: No Nodes, Thyroid Normal Size and Texture Lungs: Clear to auscultation, Normal air movement, No rhonchi, No wheeze Cardiovascular: Regular rate, Regular Rhythm, Normal S1, Normal S2 Abdomen: Bowel Sounds Present, Soft, Non Tender, Non-Distended, No Hepato- splenomegaly Extremities: No Calf Tenderness Psych/Mental Status: Normal Affect, Appropriate Microbiology Past 72 Hours 08/28/17 08:35 Fluid - Synovial (joint) Gram Stain - Final 08/28/17 08:35 Fluid - Synovial (joint) Body Fluid Culture - Preliminary Laboratory Results 08/28/17 12:40: Troponin I 0.03 08/28/17 17:07: POC Glucose 123 H 08/28/17 19:08: Troponin I 0.03 08/28/17 22:28: POC Glucose 115 H 08/29/17 06:28: WBC 7.8, RBC 3.16 L, Hgb 9.0 L, Hct 27.8 L, MCV 88.0, MCH 28.5, MCHC 32.4, RDW 15.7 H, RDW Differential 49.4 H, Plt Count 128 L, MPV 9.5, Immature Gran % (Auto) 0.300, Neut % (Auto) 71.0 H, Lymph % (Auto) 13.3 L, [place] % (Auto) 13.2 H, Eos % (Auto) 1.9, Baso % (Auto) 0.3, Absolute Neuts (auto) 5.5 , Absolute Lymphs (auto) 1.03, Total Counted Not Reportable 08/29/17 06:28: Sodium 135 L, Potassium 4.0, Chloride 102, Carbon Dioxide 24.0, Anion Gap 9, BUN 58 H, Creatinine 3.42 H, Estim Creat Clear Calc 18.97, Est GFR (MDRD) Af Amer 23 L, Est GFR (MDRD) Non-Af 19 L, BUN/Creatinine Ratio 17.0, Glucose 122 H, Calcium 8.5 08/29/17 06:28: PT 14.6, INR 1.2, APTT 42.2 H 08/29/17 06:31: POC Glucose 114 H 08/29/17 09:34: POC Glucose 129 H 08/29/17 11:17: POC Glucose 147 H 08/29/17 : Troponin I < 0.02 Current Medications Acetaminophen (Tylenol) 650 mg PO Q4H PRN PRN PRN Reason: FEVER Acetaminophen (Tylenol) 650 mg PO Q6H PRN PRN PRN Reason: PAIN Ascorbic Acid (Vitamin C) 1,000 mg PO DAILY@0800 [facility] Last Admin: 08/28/17 08:51 Dose: 1,000 mg Bisacodyl (Dulcolax) 5 mg PO DAILY PRN PRN PRN Reason: Constipation Cholecalciferol (Vitamin D) 2,000 unit PO DAILY [facility] Last Admin: 08/28/17 10:54 Dose: 2,000 unit Dextrose (D50w Syringe) 0 gm IV X1 PRN; Protocol PRN Reason: Hypoglycemia Diltiazem HCl (Cardizem Cd) 180 mg PO BID [facility] Last Admin: 08/28/17 20:45 Dose: 180 mg Docusate Sodium (Colace) 100 mg PO DAILY [facility] Last Admin: 08/28/17 10:54 Dose: 100 mg Famotidine (Pepcid) 20 mg PO DAILY [facility] Ferrous Sulfate (Ferrous Sulfate) 325 mg PO DAILYCM [facility] Last Admin: 08/28/17 08:52 Dose: 325 mg Glucagon () 1 mg IM .X1 PRN PRN Reason: Hypoglycemia Ampicillin Sodium 2 gm/ Sodium (Chloride) 100 mls @ 150 mls/hr IV Q12 [facility] Last Admin: 08/29/17 11:18 Dose: 150 mls/hr Insulin Aspart (Novolog Flexpen (Bkc)) 0 units SC ACHS [facility] PRN Reason: Protocol Last Admin: 08/29/17 11:17 Dose: Not Given Labetalol HCl (Trandate) 100 mg PO BID [facility] Last Admin: 08/28/17 20:45 Dose: 100 mg Magnesium Hydroxide (Milk Of Magnesia) 30 ml PO DAILY PRN PRN PRN Reason: Constipation Morphine Sulfate (Morphine) 2 - 4 mg IV Q2H PRN PRN PRN Reason: SEVERE PAIN (6-04/14) Multivitamins (Multivitamin) 1 tablet PO DAILYCM [facility] Last Admin: 08/28/17 08:52 Dose: 1 tablet Nateglinide (Starlix) 30 mg PO TIDCM [facility] Last Admin: 08/29/17 11:21 Dose: Not Given Nutritional Formula (Lactose Free) (Glucerna Shake) 120 ml PO TIDCM [facility] Last Admin: 08/29/17 11:18 Dose: Not Given Ondansetron HCl (Zofran) 4 mg IV Q8H PRN PRN PRN Reason: NAUSEA Promethazine HCl (Phenergan (Ll)) 12.5 mg IM Q6H PRN PRN; Protocol PRN Reason: NAUSEA/VOMITING Rivaroxaban (Xarelto) 10 mg PO DAILY@0600 [facility] Senna/Docusate Sodium (Senokot-S, Lesia-Colace) 2 tablet PO BID [facility] Sodium Chloride () 5 - 30 ml IV UD PRN PRN Reason: SALINE FLUSH Tramadol HCl (Ultram (G)) 50 - 100 mg PO Q12H PRN PRN Reason: MOD-SEVERE PAIN (4-10) Assessment/Plan Active and Suspected Problems Septic arthritis (Acute) Bacteremia due to Enterococcus (Acute) 1. Bacteremia: * + Enterococcus * ampicillin * ID on consult 2. L knee septic arthritis * s/p I+D, synovectomy and polyethelene exchange * usp IV abx * would favor tunnelled PICC given CKD 3. CKD IV * monitor creatinine closely * if worsens, consult nephrology 4. anemia: * normocytic * low iron, normal ferritin * likely anemia of chronic disease * monitor * no need for transfusions 5. DVT proph: SCDs DW patient's at bedside. Greater than 35 min of which greater than 50% of the time was discussing with the patient and his about IV abx, tunnelled PICC and future expectations. Code Visit Inpatient E&M: 34732 [facility] Hosp L3
[2017-08-29 17:46] LABS: Bedside Glucose 161 mg/dL (70-110)
[2017-08-29] MEDS: Labetalol 100 MG Tablet PO (20:45)
[2017-08-29] MEDS: HYDROmorphone 1 MG/ML Syringe IV (20:45)
[2017-08-29] MEDS: 0.9% NaCl Peripheral Flush Adult/Peds IV (20:45)
[2017-08-29] MEDS: dilTIAZem CD 180 MG Capsule PO (20:46)
[2017-08-29] MEDS: Senna/Docusate Sodium 1 Tablet 2 TABLET PO (20:47)
[2017-08-29 22:06] LABS: Bedside Glucose 155 mg/dL (70-110)
[2017-08-30 02:30] VITALS: BP 157/94; PULSE 94; RESP 18; TEMP 36.6; O2SAT 98
--- NOTE | 2017-08-30 06:29 | NURSING ---
Pt concerned about starting xarelto. concerned as he has a tendency to bleed easily and concerned about these new generation blood thinners. Would like to talk with the Dr before commencing. Will hand same over to morning staff if surgeon not present this shift.
[2017-08-30 06:36] LABS: Bedside Glucose 140 mg/dL (70-110)
[2017-08-30 06:53] LABS: Hematocrit 25.1 % (40-54); Mean Corp Hgb Conc 31.9 g/gl (32-36); Mean Corpuscular Hgb 27.6 pg (27.0-32.0); Mean Corpuscular Volume 86.6 fL (80-94); Mean Platelet Vol. 9.5 fl (6.2-12.0); Platelet Count 131 K/mm3 (150-450); Scan Indicated on CBC? Y/N NO; White Blood Count 9.3 K/mm3 (4.4-11.0)
[2017-08-30 07:02] LABS: Anion Gap 10 (5-15); BUN 45 mg/dL (7-18); BUN/Creat Ratio 16.2 RATIO (10-20); Calcium,Total 8.2 mg/dL (8.5-10.1); Chloride 99 mmol/L (98-107); Creatinine, Serum 2.77 mg/dL (0.70-1.30); EST Glomerular Filtration Rate 24 mL/min (>60); Est Glom Filt Rate - Afr Amer 29 mL/min (>60); Estimated Creatinine Clearance 23.43 ml/min; Glucose 152 mg/dL (74-106); Potassium 4.2 mmol/L (3.5-5.1); Sodium Level 134 mmol/L (136-145)
[2017-08-30 07:32] VITALS: O2SAT 91
[2017-08-30 07:53] VITALS: BP 141/74; PULSE 83; RESP 18; TEMP 36.7; O2SAT 93
--- NOTE | 2017-08-30 09:11 | PCM.PN.HOSP ---
Patient Problems: Active and Suspected Problems Septic arthritis (Acute) Bacteremia due to Enterococcus (Acute) Subjective: Still with pain in his left knee when he moves it but is fine at rest. No new complaints at this time. Vitals/I&O's: Vital Signs Temp Pulse Resp BP Pulse Ox 36.7 C 83 18 141/74 H 93 08/30/17 07:53 08/30/17 07:53 08/30/17 07:53 08/30/17 07:53 08/30/17 07:53 Oxygen Flow Rate 2 Oxygen Delivery Method Room Air Weight: 93.4 kg Body Mass Index (BMI) 29.5 Finger Stick Blood Glucose 129 Intake and Output for Last 24 Hours 08/28/17 08/29/17 08/30/17 23:59 23:59 23:59 Intake Total 2081 / 2081 2576 / 2576 650 / 650 Output Total 2024 / 2024 2425 / 2425 1325 / 1325 Balance 57 / 57 151 / 151 -675 / -675 General: Alert, Cooperative, No apparent distress HEENT: Atraumatic, Normocephalic Neck: No Nodes, Thyroid Normal Size and Texture Lungs: Clear to auscultation, Normal air movement, No rhonchi, No wheeze Cardiovascular: Regular rate, Regular Rhythm, Normal S1, Normal S2, No murmurs Abdomen: Bowel Sounds Present, Soft, Non Tender, Non-Distended, No Hepato-splenomegaly Extremities: No edema, No Calf Tenderness, - - Left knee wrapped, did not remove. Musculoskeletal: No Muscle Wasting Psych/Mental Status: Normal Affect, Appropriate Microbiology Past 72 Hours 08/28/17 08:35 Fluid - Synovial (joint) Gram Stain - Final 08/28/17 08:35 Fluid - Synovial (joint) Body Fluid Culture - Preliminary Laboratory Results 08/29/17 09:34: POC Glucose 129 H 08/29/17 11:17: POC Glucose 147 H 08/29/17 17:04: POC Glucose 161 H 08/29/17 21:54: POC Glucose 155 H 08/29/17 : Troponin I < 0.02 08/30/17 06:10: WBC 9.3, RBC 2.90 L, Hgb 8.0 L, Hct 25.1 L, MCV 86.6, MCH 27.6, MCHC 31.9 L, RDW 16.0 H, RDW Differential 51.0 H, Plt Count 131 L, MPV 9.5 08/30/17 06:10: Sodium 134 L, Potassium 4.2, Chloride 99, Carbon Dioxide 25.0, Anion Gap 10, BUN 45 H, Creatinine 2.77 H, Estim Creat Clear Calc 23.43, Est GFR (MDRD) Af Amer 29 L, Est GFR (MDRD) Non-Af 24 L, BUN/Creatinine Ratio 16.2, Glucose 152 H, Calcium 8.2 L 08/30/17 06:28: POC Glucose 140 H Current Medications Acetaminophen (Tylenol) 650 mg PO Q4H PRN PRN PRN Reason: FEVER Acetaminophen (Tylenol) 650 mg PO Q6H PRN PRN PRN Reason: PAIN Ascorbic Acid (Vitamin C) 1,000 mg PO DAILY@0800 [facility] Last Admin: 08/29/17 17:24 Dose: Not Given Bisacodyl (Dulcolax) 5 mg PO DAILY PRN PRN PRN Reason: Constipation Cholecalciferol (Vitamin D) 2,000 unit PO DAILY [facility] Last Admin: 08/29/17 17:25 Dose: Not Given Dextrose (D50w Syringe) 0 gm IV X1 PRN; Protocol PRN Reason: Hypoglycemia Diltiazem HCl (Cardizem Cd) 180 mg PO BID [facility] Last Admin: 08/29/17 20:46 Dose: 180 mg Docusate Sodium (Colace) 100 mg PO DAILY [facility] Last Admin: 08/29/17 17:25 Dose: Not Given Famotidine (Pepcid) 20 mg PO DAILY [facility] Last Admin: 08/29/17 17:25 Dose: Not Given [facility] Last Admin: 08/29/17 17:24 Dose: Not Given Glucagon () 1 mg IM .X1 PRN PRN Reason: Hypoglycemia Hydromorphone HCl (Dilaudid) 1 mg IV Q4H PRN PRN PRN Reason: SEVERE PAIN (6-10/10) Last Admin: 08/29/17 20:45 Dose: 1 mg Ampicillin Sodium 2 gm/ Sodium (Chloride) 100 mls @ 150 mls/hr IV Q12 [facility] Last Admin: 08/29/17 21:58 Dose: 150 mls/hr Insulin Aspart (Novolog Flexpen (Bkc)) 0 units SC ACHS [facility] PRN Reason: Protocol Last Admin: 08/30/17 06:29 Dose: Not Given Labetalol HCl (Trandate) 100 mg PO BID [facility] Last Admin: 08/29/17 20:45 Dose: 100 mg Magnesium Hydroxide (Milk Of Magnesia) 30 ml PO DAILY PRN PRN PRN Reason: Constipation Morphine Sulfate (Morphine) 2 - 4 mg IV Q2H PRN PRN PRN Reason: SEVERE PAIN (6-10/10) Last Admin: 08/29/17 17:29 Dose: 4 mg Multivitamins (Multivitamin) 1 tablet PO DAILYCM [facility] Last Admin: 08/29/17 17:24 Dose: Not Given Nateglinide (Starlix) 30 mg PO TIDCM [facility] Last Admin: 08/29/17 17:25 Dose: Not Given Nutritional Formula (Lactose Free) (Glucerna Shake) 120 ml PO TIDCM [facility] Last Admin: 08/29/17 17:25 Dose: Not Given Ondansetron HCl (Zofran) 4 mg IV Q8H PRN PRN PRN Reason: NAUSEA Oxycodone HCl (Oxyir) 5 mg PO Q4H PRN PRN PRN Reason: SEVERE PAIN (6-10/10) Promethazine HCl (Phenergan (Ll)) 12.5 mg IM Q6H PRN PRN; Protocol PRN Reason: NAUSEA/VOMITING Rivaroxaban (Xarelto) 10 mg PO DAILY@0600 [facility] Senna/Docusate Sodium (Senokot-S, Lesia-Colace) 2 tablet PO BID [facility] Last Admin: 08/29/17 20:47 Dose: 2 tablet Sodium Chloride () 5 - 30 ml IV UD PRN PRN Reason: SALINE FLUSH Last Admin: 08/29/17 20:45 Dose: 5 ml Tramadol HCl (Ultram (G)) 50 - 100 mg PO Q12H PRN PRN Reason: MOD-SEVERE PAIN (4-10/10) Last Admin: 08/29/17 16:12 Dose: 100 mg Assessment/Plan Active and Suspected Problems Septic arthritis (Acute) Bacteremia due to Enterococcus (Acute) 76-year-old white male recently diagnosed with recurrent bacteremia and acute onset of left knee swelling. Patient underwent a polyethylene exchange, synovectomy and incision and drainage of his left knee on the . Concern is for septic arthritis. Unclear if the septic arthritis was related to patient's previous bacteremia or may have been the nidus of the bacteremia. Cultures from his arthrocentesis and surgery are still pending at this time. 1. Bacteremia: + Enterococcus on the ampicillin ID on consult Blood cultures on the and are so far negative. 2. L knee septic arthritis s/p I+D, synovectomy and polyethelene exchange nursing home IV abx would favor tunnelled PICC given CKD 3. CKD IV monitor creatinine closely if worsens, consult nephrology Creatinine improved today. 4. anemia: normocytic low iron, normal ferritin likely anemia of chronic disease monitor no need for transfusions Hemoglobin down from 9-8 today. No indication for transfusions at this time. 5. DVT proph: SCDs Code Visit Inpatient E&M: [id number] Subs Hosp L2
--- NOTE | 2017-08-30 09:15 | PN_ITS ---
Patient Problems: Active and Suspected Problems Septic arthritis (Acute) Bacteremia due to Enterococcus (Acute) Subjective: Still with pain in his left knee when he moves it but is fine at rest. No new complaints at this time. Vitals/I&O's: Vital Signs Temp Pulse Resp BP Pulse Ox 36.7 C 83 18 141/74 H 93 08/30/17 07:53 08/30/17 07:53 08/30/17 07:53 08/30/17 07:53 08/30/17 07:53 Oxygen Flow Rate 2 Oxygen Delivery Method Room Air Weight: 93.4 kg Body Mass Index (BMI) 29.5 Finger Stick Blood Glucose 129 Intake and Output for Last 24 Hours 08/28/17 08/29/17 08/30/17 23:59 23:59 23:59 Intake Total 2081 / 2081 2576 / 2576 650 / 650 Output Total 2024 / 2024 2425 / 2425 1325 / 1325 Balance 57 / 57 151 / 151 -675 / -675 General: Alert, Cooperative, No apparent distress HEENT: Atraumatic, Normocephalic Neck: No Nodes, Thyroid Normal Size and Texture Lungs: Clear to auscultation, Normal air movement, No rhonchi, No wheeze Cardiovascular: Regular rate, Regular Rhythm, Normal S1, Normal S2, No murmurs Abdomen: Bowel Sounds Present, Soft, Non Tender, Non-Distended, No Hepato- splenomegaly Extremities: No edema, No Calf Tenderness, - - Left knee wrapped, did not remove. Musculoskeletal: No Muscle Wasting Psych/Mental Status: Normal Affect, Appropriate Microbiology Past 72 Hours 08/28/17 08:35 Fluid - Synovial (joint) Gram Stain - Final 08/28/17 08:35 Fluid - Synovial (joint) Body Fluid Culture - Preliminary Laboratory Results 08/29/17 09:34: POC Glucose 129 H 08/29/17 11:17: POC Glucose 147 H 08/29/17 17:04: POC Glucose 161 H 08/29/17 21:54: POC Glucose 155 H 08/29/17 : Troponin I < 0.02 08/30/17 06:10: WBC 9.3, RBC 2.90 L, Hgb 8.0 L, Hct 25.1 L, MCV 86.6, MCH 27.6, MCHC 31.9 L, RDW 16.0 H, RDW Differential 51.0 H, Plt Count 131 L, MPV 9.5 08/30/17 06:10: Sodium 134 L, Potassium 4.2, Chloride 99, Carbon Dioxide 25.0, Anion Gap 10, BUN 45 H, Creatinine 2.77 H, Estim Creat Clear Calc 23.43, Est GFR (MDRD) Af Amer 29 L, Est GFR (MDRD) Non-Af 24 L, BUN/Creatinine Ratio 16.2, Glucose 152 H, Calcium 8.2 L 08/30/17 06:28: POC Glucose 140 H Current Medications Acetaminophen (Tylenol) 650 mg PO Q4H PRN PRN PRN Reason: FEVER Acetaminophen (Tylenol) 650 mg PO Q6H PRN PRN PRN Reason: PAIN Ascorbic Acid (Vitamin C) 1,000 mg PO DAILY@0800 [facility] Last Admin: 08/29/17 17:24 Dose: Not Given Bisacodyl (Dulcolax) 5 mg PO DAILY PRN PRN PRN Reason: Constipation Cholecalciferol (Vitamin D) 2,000 unit PO DAILY [facility] Last Admin: 08/29/17 17:25 Dose: Not Given Dextrose (D50w Syringe) 0 gm IV X1 PRN; Protocol PRN Reason: Hypoglycemia Diltiazem HCl (Cardizem Cd) 180 mg PO BID [facility] Last Admin: 08/29/17 20:46 Dose: 180 mg Docusate Sodium (Colace) 100 mg PO DAILY [facility] Last Admin: 08/29/17 17:25 Dose: Not Given Famotidine (Pepcid) 20 mg PO DAILY [facility] Last Admin: 08/29/17 17:25 Dose: Not Given Ferrous Sulfate ([facility] Sulf[facility]) [facility] Last Admin: 08/29/17 17:24 Dose: Not Given Glucagon () 1 mg IM .X1 PRN PRN Reason: Hypoglycemia Hydromorphone HCl (Dilaudid) 1 mg IV Q4H PRN PRN PRN Reason: SEVERE PAIN (6-10/10) Last Admin: 08/29/17 20:45 Dose: 1 mg Ampicillin Sodium 2 gm/ Sodium (Chloride) 100 mls @ 150 mls/hr IV Q12 [facility] Last Admin: 08/29/17 21:58 Dose: 150 mls/hr Insulin Aspart (Novolog Flexpen (Bkc)) 0 units SC ACHS [facility] PRN Reason: Protocol Last Admin: 08/30/17 06:29 Dose: Not Given Labetalol HCl (Trandate) 100 mg PO BID [facility] Last Admin: 08/29/17 20:45 Dose: 100 mg Magnesium Hydroxide (Milk Of Magnesia) 30 ml PO DAILY PRN PRN PRN Reason: Constipation Morphine Sulfate (Morphine) 2 - 4 mg IV Q2H PRN PRN PRN Reason: SEVERE PAIN (6-10/10) Last Admin: 08/29/17 17:29 Dose: 4 mg Multivitamins (Multivitamin) 1 tablet PO DAILYCM [facility] Last Admin: 08/29/17 17:24 Dose: Not Given Nateglinide (Starlix) 30 mg PO TIDCM [facility] Last Admin: 08/29/17 17:25 Dose: Not Given Nutritional Formula (Lactose Free) (Glucerna Shake) 120 ml PO TIDCM [facility] Last Admin: 08/29/17 17:25 Dose: Not Given Ondansetron HCl (Zofran) 4 mg IV Q8H PRN PRN PRN Reason: NAUSEA Oxycodone HCl (Oxyir) 5 mg PO Q4H PRN PRN PRN Reason: SEVERE PAIN (6-10/10) Promethazine HCl (Phenergan (Ll)) 12.5 mg IM Q6H PRN PRN; Protocol PRN Reason: NAUSEA/VOMITING Rivaroxaban (Xarelto) 10 mg PO DAILY@0600 [facility] Senna/Docusate Sodium (Senokot-S, Lesia-Colace) 2 tablet PO BID [facility] Last Admin: 08/29/17 20:47 Dose: 2 tablet Sodium Chloride () 5 - 30 ml IV UD PRN PRN Reason: SALINE FLUSH Last Admin: 08/29/17 20:45 Dose: 5 ml Tramadol HCl (Ultram (G)) 50 - 100 mg PO Q12H PRN PRN Reason: MOD-SEVERE PAIN (4-10/10) Last Admin: 08/29/17 16:12 Dose: 100 mg Assessment/Plan Active and Suspected Problems Septic arthritis (Acute) Bacteremia due to Enterococcus (Acute) 76-year-old white male recently diagnosed with recurrent bacteremia and acute onset of left knee swelling. Patient underwent a polyethylene exchange, synovectomy and incision and drainage of his left knee on the . Concern is for septic arthritis. Unclear if the septic arthritis was related to patient's previous bacteremia or may have been the nidus of the bacteremia. Cultures from his arthrocentesis and surgery are still pending at this time. 1. Bacteremia: * + Enterococcus on the * ampicillin * ID on consult * Blood cultures on the and are so far negative. 2. L knee septic arthritis * s/p I+D, synovectomy and polyethelene exchange * group home IV abx * would favor tunnelled PICC given CKD 3. CKD IV * monitor creatinine closely * if worsens, consult nephrology * Creatinine improved today. 4. anemia: * normocytic * low iron, normal ferritin * likely anemia of chronic disease * monitor * no need for transfusions * Hemoglobin down from 9-8 today. No indication for transfusions at this time. 5. DVT proph: SCDs Code Visit Inpatient E&M: 51640 Subs Hosp L2
[2017-08-30] MEDS: Senna/Docusate Sodium 1 Tablet 2 TABLET PO ×2 (09:28→21:52)
[2017-08-30] MEDS: Labetalol 100 MG Tablet PO ×2 (09:28→21:51)
[2017-08-30] MEDS: Ascorbic Acid 500 MG Tablet 1000 MG PO (09:29)
[2017-08-30] MEDS: Famotidine 20 MG Tablet PO (09:29)
[2017-08-30] MEDS: dilTIAZem CD 180 MG Capsule PO ×2 (09:29→21:51)
[2017-08-30] MEDS: Docusate Sodium 100 MG Capsule PO (09:29)
[2017-08-30] MEDS: Ferrous Sulfate 325 MG Tablet PO (09:29)
[2017-08-30] MEDS: Multivitamins,Therapeutic Tablet 1 TABLET PO (09:29)
[2017-08-30] MEDS: Glucerna Shake 120 ML LIQUID PO ×2 (09:33→16:47)
[2017-08-30 11:46] LABS: Bedside Glucose 166 mg/dL (70-110)
[2017-08-30] MEDS: Rivaroxaban 10 MG Tablet PO (12:28)
--- NOTE | 2017-08-30 12:33 | PN.ORTHO_ITS ---
Patient Problems: Active and Suspected Problems Septic arthritis (Acute) Bacteremia due to Enterococcus (Acute) Subjective: Patient doing well overall. Does continue to have some pain which is expected. Did have one dressing change overnight current dressing is moderately saturated. No chest pain or shortness of breath. Pain currently is worse with motion and ambulation. Patient denies calf pain. Objective: Cultures and Gram stain are still pending. - Physical Exam General: Alert, Oriented x3, Cooperative Lungs: - - Nonlabored breathing Extremities: - - Left lower extremity: Dressing intact with moderate saturation distally, dressing removed for change patient did have drainage from the midportion of the incision one localized area. This area was milked to eliminate underlying blood. Sensations intact to light touch saphenous, sural, superficial peroneal, deep peroneal, and tibial distributions Motors intact EHL , DF, PF calves are soft and supple Vital Signs Temp Pulse Resp BP Pulse Ox 98.1 F 83 18 141/74 H 93 08/30/17 07:53 08/30/17 07:53 08/30/17 07:53 08/30/17 07:53 08/30/17 07:53 Oxygen Flow Rate 2 Oxygen Delivery Method Room Air Weight: 205 lb 14.588 oz Body Mass Index (BMI) 29.5 Finger Stick Blood Glucose 129 Intake and Output for Last 24 Hours 08/28/17 08/29/17 08/30/17 23:59 23:59 23:59 Intake Total 2081 / 2081 2576 / 2576 650 / 650 Output Total 2024 / 2024 2425 / 2425 1325 / 1325 Balance 57 / 57 151 / 151 -675 / -675 Microbiology Past 72 Hours 08/28/17 08:35 Gram Stain - Final Fluid - Synovial (joint) Body Fluid Culture - Preliminary Laboratory Tests Past 24 Hrs 08/30/17 08/30/17 06:10 06:10 WBC 9.3 RBC 2.90 L Hgb 8.0 L Hct 25.1 L MCV 86.6 MCH 27.6 MCHC 31.9 L RDW 16.0 H RDW Differential 51.0 H Plt Count 131 L MPV 9.5 Sodium 134 L Potassium 4.2 Chloride 99 Carbon Dioxide 25.0 Anion Gap 10 BUN 45 H Creatinine 2.77 H Estim Creat Clear Calc 23.43 Est GFR (MDRD) Af Amer 29 L Est GFR (MDRD) Non-Af 24 L BUN/Creatinine Ratio 16.2 Glucose 152 H Calcium 8.2 L POC Glucose 08/30/17 08/30/17 08/29/17 11:19 06:28 21:54 POC Glucose 166 H 140 H 155 H 08/29/17 17:04 POC Glucose 161 H Assessment/Plan Active and Suspected Problems Septic arthritis (Acute) Bacteremia due to Enterococcus (Acute) Acutely septic left total knee replacement. Postop day 1 irrigation debridement with synovectomy and polyethylene exchange 1. Infection: ID services on consultation. Plan for at least 6 weeks IV antibiotics will need to be monitored due to renal failure. PICC line will need to be placed. Antibiotics per infectious disease service. Continue to follow cultures 2. Drainage: Dressing was changed today. Will monitor clinically. If continued drainage will consider placement of wound VAC prior to discharge 3. Pain control: Patient has significant intolerance to oxycodone and hydrocodone. Did receive some Dilaudid overnight controlled currently with tramadol, however tramadol dose is limited secondary to renal function. We will continue to monitor and adjust. 4. PT: Weight-bear as tolerated activity as tolerated 5. DVT prophylaxis: Xarelto currently, SCDs [facility] Office:
[2017-08-30 14:00] VITALS: BP 142/69; PULSE 68; RESP 18; TEMP 36.7; O2SAT 96
[2017-08-30 17:06] LABS: Bedside Glucose 125 mg/dL (70-110)
[2017-08-30] MEDS: HYDROmorphone 1 MG/ML Syringe IV (18:26)
[2017-08-30] MEDS: 0.9% NaCl Peripheral Flush Adult/Peds IV (18:26)
[2017-08-30 18:35] VITALS: BP 150/101
[2017-08-30 20:23] VITALS: BP 153/79; PULSE 86; RESP 18; TEMP 36.7; O2SAT 97
[2017-08-30 21:56] LABS: Bedside Glucose 127 mg/dL (70-110)
[2017-08-31] VITALS (11 sets, daily range): BP systolic 110–150; BP diastolic 62–79; PULSE 60–105; RESP 16–18; TEMP 36.5–38.2; O2SAT 90–98
[2017-08-31] MEDS: Rivaroxaban 10 MG Tablet PO (05:33)
[2017-08-31 06:18] LABS: Hematocrit 23.3 % (40-54); Hemoglobin 7.5 g/dl (13.0-16.5); Mean Corp Hgb Conc 32.2 g/gl (32-36); Mean Corpuscular Hgb 27.7 pg (27.0-32.0); Mean Platelet Vol. 9.3 fl (6.2-12.0); Platelet Count 141 K/mm3 (150-450); RBC Distribution Width SD 50.2 fl (35.1-43.9); Red Blood Count 2.71 M/mm3 (4.6-6.2)
[2017-08-31 06:24] LABS: Anion Gap 10 (5-15); BUN 48 mg/dL (7-18); BUN/Creat Ratio 15.9 RATIO (10-20); Calcium,Total 8.2 mg/dL (8.5-10.1); Chloride 98 mmol/L (98-107); Creatinine, Serum 3.02 mg/dL (0.70-1.30); EST Glomerular Filtration Rate 22 mL/min (>60); Est Glom Filt Rate - Afr Amer 26 mL/min (>60); Estimated Creatinine Clearance 21.49 ml/min; Glucose 155 mg/dL (74-106); Sodium Level 131 mmol/L (136-145)
[2017-08-31 06:28] LABS: Scan Indicated on CBC? Y/N NO
[2017-08-31 07:05] LABS: Bedside Glucose 146 mg/dL (70-110)
--- NOTE | 2017-08-31 07:11 | NURSING ---
Walked into pt's room to find him sitting in the chair trying to put his jeans over his shorts and had one shoe on. When asked if he got up by himself to get his shoes and jeans out of the wardrobe he replied that he did. He stated he wanted to 'get out of here somehow and someway'. Obtained chair alarm and placed on chair pt is sitting on. Will hand over pt's confusion on and off through the night and ask physician be notified.
--- NOTE | 2017-08-31 07:35 | PN.ORTHO_ITS ---
Subjective: The patient was sitting in bedside chair upon examination. Patient denies any chest pain, shortness of breath, dizziness, lightheadedness, nausea or vomiting , or calf pain. Pain is controlled on medications. No adverse overnight events. Patient states the pain is doing okay today he has several allergies and her pain medications are limited. He has been on tramadol every 12 hours due to renal function. There was drainage over the weekend with dressing change yesterday. He has been having his left leg wrapped with Afshin wrap. Patient currently denies any symptoms but hemoglobin has dropped to 7.5. Plan is for PICC line and antibiotics ?6 weeks. Objective: Vital signs stable and afebrile. Patient is able to plantarflex and dorsiflex actively. Sensation is intact to light touch to saphenous, sural, superficial and deep peroneal, and tibial distribution. Dressing with drainage onto borders over distal one third. New dressing was applied, there was no active drainage at the incision. All drainage was old. No erythema. Negative Homans bilaterally, negative signs and symptoms of DVT. - Physical Exam General: Alert, Oriented x3, Cooperative, No apparent distress Vital Signs Temp Pulse Resp BP Pulse Ox 97.7 F L 90 18 150/79 H 93 08/31/17 02:30 08/31/17 04:31 08/31/17 02:30 08/31/17 02:30 08/31/17 02:30 Oxygen Flow Rate 2 Oxygen Delivery Method Room Air Weight: 93.4 kg Body Mass Index (BMI) 29.5 Finger Stick Blood Glucose 129 Intake and Output for Last 24 Hours 08/29/17 08/30/17 08/31/17 23:59 23:59 23:59 Intake Total 2576 / 2576 1350 / 1350 726 / 726 Output Total 2425 / 2425 1875 / 1875 825 / 825 Balance 151 / 151 -525 / -525 -99 / -99 Microbiology Past 72 Hours 08/29/17 Unknown Gram Stain - Final Biopsy - Tissue Wound Culture - Preliminary Gram positive organism 08/29/17 Unknown Gram Stain - Final Biopsy - Tissue Wound Culture - Preliminary Gram Positive Cocci 08/29/17 Unknown Gram Stain - Final Biopsy - Tissue Wound Culture - Preliminary Gram positive organism 08/28/17 12:40 Blood Culture - Preliminary Blood Culture (Wb) - Anticubital Left No growth in 48 hours. 08/28/17 08:35 Gram Stain - Final Fluid - Synovial (joint) Body Fluid Culture - Preliminary Gram positive organism Laboratory Tests Past 24 Hrs 08/31/17 08/31/17 05:36 05:36 WBC 10.0 RBC 2.71 L Hgb 7.5 L Hct 23.3 L MCV 86.0 MCH 27.7 MCHC 32.2 RDW 16.0 H RDW Differential 50.2 H Plt Count 141 L MPV 9.3 Sodium 131 L Potassium 4.0 Chloride 98 Carbon Dioxide 23.0 Anion Gap 10 BUN 48 H Creatinine 3.02 H Estim Creat Clear Calc 21.49 Est GFR (MDRD) Af Amer 26 L Est GFR (MDRD) Non-Af 22 L BUN/Creatinine Ratio 15.9 Glucose 155 H Calcium 8.2 L POC Glucose 08/31/17 08/30/17 08/30/17 07:02 21:50 16:37 POC Glucose 146 H 127 H 125 H 08/30/17 11:19 POC Glucose 166 H Assessment/Plan 1. S/P irrigation debridement with synovectomy and polyethylene exchange POD #2 2. Continue Pain Medications: Currently on tramadol with limited dosing secondary to renal function. Pain appears to be well controlled at this time. 3. DVT Prophylaxis: Xarelto 4. PT/OT: Weightbearing as tolerated 5. H & H: 7.5/23.3, asymptomatic. Patient currently asymptomatic and will continue to monitor. Defer to medicine for possible transfusion. 6. Encouraged Incentive Spirometry 7. Continue postoperative medical care by medicine 8. Infection: Infectious disease has been consulted. Plan is for 6 weeks IV antibiotics and will need to be monitored due to renal failure. PICC line will need to be placed. Antibiotics per infectious disease service. 9. Drainage: New dressing was applied, skin was without erythema and there was no active drainage. New dressing was placed. We will continue to monitor. If continued drainage there will be possible consideration for a wound VAC prior to discharge. 10. Disposition: Upon discharge, patient will need 2 week postoperative follow- up with [facility] with Dr. Bryant.
[2017-08-31] MEDS: Ferrous Sulfate 325 MG Tablet PO (08:30)
[2017-08-31] MEDS: Glucerna Shake 120 ML LIQUID PO ×2 (08:31→17:20)
[2017-08-31] MEDS: Multivitamins,Therapeutic Tablet 1 TABLET PO (08:31)
[2017-08-31] MEDS: Ascorbic Acid 500 MG Tablet 1000 MG PO (08:31)
--- NOTE | 2017-08-31 08:53 | PCM.PN.HOSP ---
Subjective: Patient overnight with no acute events per self and per nursing report. Still having some mild serosanguineous drainage from the incision and the knee. Notes ongoing discomfort to the knee primarily with increased usage but tolerable. Discussed alterations in care which include repeat TIM which was discussed also with cardiology and infectious disease, need for repeat blood cultures today which have been taken and pending, planned future port placement once blood cultures assured negative and TIM reviewed discussed with surgery. Given valvular heart disease and decreased hemoglobin with recent operative intervention, 1 unit PRBC administration ordered which was also discussed with patient and family. Patient denies fevers, chills, nausea, emesis, abdominal pain, chest pain or dyspnea. Objective: Physical Examination: General: awake, alert, oriented x 3 and cooperative, seated upright in bed in no apparent distress. Skin: normal color, turgor, no icterus, cyanosis except diffuse bilateral upper extremity ecchymoses, right knee with dressing and Afshin wrap in place with no drainage noted. HEENT: AT/NC, EOMI, PERRLA, MMM. Lungs: CTA bilaterally, moderate effort, mild decrease BL bases, no rales, ronchi or wheezing. Heart: Regular rate and rhythm; no gallop, rub audible, s/p AVR. Abdomen: soft, overweight, NTTP, ND, normal BS. Extremities: no cyanosis, clubbing, s/p OR R knee dressing, ACEI in place, no drainage, distal pulses intact. Neurological: patient awake, alert, oriented x 3; cognitive function intact; pupils equally reactive to light and accomodation; cranial nerves II-XII grossly normal, moving all 4 extremities except expected limitation RLE given recent OR, strength accordingly moderately to severely globally decreased. Psychiatric: affect appears normal, no acute evidence of depressive or anxiety feelings. Vitals/I&O's: Vital Signs Temp Pulse Resp BP Pulse Ox 98.6 F 86 18 110/62 98 08/31/17 08:23 08/31/17 08:23 08/31/17 08:23 08/31/17 08:23 08/31/17 08:23 Oxygen Flow Rate 2 Oxygen Delivery Method Room Air Weight: 205 lb 14.588 oz Body Mass Index (BMI) 29.5 Finger Stick Blood Glucose 129 Intake and Output for Last 24 Hours 08/29/17 08/30/17 08/31/17 23:59 23:59 23:59 Intake Total 2576 / 2576 1350 / 1350 726 / 726 Output Total 2425 / 2425 1875 / 1875 825 / 825 Balance 151 / 151 -525 / -525 -99 / -99 Microbiology Past 72 Hours 08/28/17 08:35 Fluid - Synovial (joint) Gram Stain - Final 08/28/17 08:35 Fluid - Synovial (joint) Body Fluid Culture - Preliminary Enterococcus faecalis 08/29/17 Unknown Biopsy - Tissue Gram Stain - Final 08/29/17 Unknown Biopsy - Tissue Wound Culture - Preliminary Gram positive organism 08/29/17 Unknown Biopsy - Tissue Gram Stain - Final 08/29/17 Unknown Biopsy - Tissue Wound Culture - Preliminary Gram Positive Cocci 08/29/17 Unknown Biopsy - Tissue Gram Stain - Final 08/29/17 Unknown Biopsy - Tissue Wound Culture - Preliminary Gram positive organism 08/28/17 12:40 Blood Culture (Wb) - Anticubital Left Blood Culture - Preliminary No growth in 48 hours. Laboratory Results 08/30/17 11:19: POC Glucose 166 H 08/30/17 16:37: POC Glucose 125 H 08/30/17 21:50: POC Glucose 127 H 08/31/17 05:36: WBC 10.0, RBC 2.71 L, Hgb 7.5 L, Hct 23.3 L, MCV 86.0, MCH 27.7, MCHC 32.2, RDW 16.0 H, RDW Differential 50.2 H, Plt Count 141 L, MPV 9.3 08/31/17 05:36: Sodium 131 L, Potassium 4.0, Chloride 98, Carbon Dioxide 23.0, Anion Gap 10, BUN 48 H, Creatinine 3.02 H, Estim Creat Clear Calc 21.49, Est GFR (MDRD) Af Amer 26 L, Est GFR (MDRD) Non-Af 22 L, BUN/Creatinine Ratio 15.9, Glucose 155 H, Calcium 8.2 L 08/31/17 07:02: POC Glucose 146 H Current Medications Acetaminophen (Tylenol) 650 mg PO Q4H PRN PRN PRN Reason: FEVER Acetaminophen (Tylenol) 650 mg PO Q6H PRN PRN PRN Reason: PAIN Ascorbic Acid (Vitamin C) 1,000 mg PO DAILY@0800 KRANTHI Last Admin: 08/31/17 08:31 Dose: 1,000 mg Bisacodyl (Dulcolax) 5 mg PO DAILY PRN PRN PRN Reason: Constipation Cholecalciferol (Vitamin D) 2,000 unit PO DAILY [facility] Last Admin: 08/30/17 09:28 Dose: 2,000 unit Dextrose (D50w Syringe) 0 gm IV X1 PRN; Protocol PRN Reason: Hypoglycemia Diltiazem HCl (Cardizem Cd) 180 mg PO BID [facility] Last Admin: 08/30/17 21:51 Dose: 180 mg Docusate Sodium (Colace) 100 mg PO DAILY [facility] Last Admin: 08/30/17 09:29 Dose: 100 mg Famotidine (Pepcid) 20 mg PO DAILY [facility] Last Admin: 08/30/17 09:29 Dose: 20 mg [facility]ous [facility]) [facility] Last Admin: 08/31/17 08:30 Dose: 325 mg Glucagon () 1 mg IM .X1 PRN PRN Reason: Hypoglycemia Hydromorphone HCl (Dilaudid) 1 mg IV Q4H PRN PRN PRN Reason: SEVERE PAIN (6-10/10) Last Admin: 08/30/17 18:26 Dose: 1 mg Ampicillin Sodium 2 gm/ Sodium (Chloride) 100 mls @ 150 mls/hr IV Q12 [facility] Last Admin: 08/30/17 22:11 Dose: 150 mls/hr Insulin Aspart (Novolog Flexpen (Bkc)) 0 units SC ACHS [facility] PRN Reason: Protocol Last Admin: 08/31/17 07:10 Dose: Not Given Labetalol HCl (Trandate) 100 mg PO BID [facility] Last Admin: 08/30/17 21:51 Dose: 100 mg Magnesium Hydroxide (Milk Of Magnesia) 30 ml PO DAILY PRN PRN PRN Reason: Constipation Morphine Sulfate (Morphine) 2 - 4 mg IV Q2H PRN PRN PRN Reason: SEVERE PAIN (6-10/10) Last Admin: 08/29/17 17:29 Dose: 4 mg Multivitamins ([facility]ivitamin) [facility] Last Admin: 08/31/17 08:31 Dose: 1 tablet Nateglinide (Starlix) 30 mg PO TIDCM [facility] Last Admin: 08/31/17 08:31 Dose: 30 mg Nutritional Formula (Lactose Free) (Glucerna Shake) 120 ml PO TIDCM [facility] Last Admin: 08/31/17 08:31 Dose: 120 ml Ondansetron HCl (Zofran) 4 mg IV Q8H PRN PRN PRN Reason: NAUSEA Promethazine HCl (Phenergan (Ll)) 12.5 mg IM Q6H PRN PRN; Protocol PRN Reason: NAUSEA/VOMITING Rivaroxaban (Xarelto) 10 mg PO DAILY@0600 [facility] Last Admin: 08/31/17 05:33 Dose: 10 mg Senna/Docusate Sodium (Senokot-S, Lesia-Colace) 2 tablet PO BID [facility] Last Admin: 08/30/17 21:52 Dose: 2 tablet Sodium Chloride () 5 - 30 ml IV UD PRN PRN Reason: SALINE FLUSH Last Admin: 08/30/17 18:26 Dose: 10 ml Tramadol HCl (Ultram (G)) 50 - 100 mg PO Q12H PRN PRN Reason: MOD-SEVERE PAIN (4-10/10) Last Admin: 08/30/17 11:15 Dose: 100 mg Assessment/Plan The patient is a 76 y/o M w/ PMHx: CAD s/p CABG x 3, Valvular Heart Disease w Aortic Sclerosis, HTN, HLD, CKD stage IV w/ Solitary Kidney, AOCD/Fe deficiency anemia, Diabetes mellitus type II, Overweight who presents to the [facility] ED on 08/31/17 with recent history of enterococcal bacteremia of unclear etiology initially with now onset L knee pain, swelling with ED evaluation, aspiration performed w/ Cx obtained resulted + E. Faecalis. (1) Left knee periprosthetic infection w/ E. fecalis Septic Arthritis w/ E. Fecalis Bacteremia: Recent admission prior w/ + cultures, TIM performed which was unremarkable, completed 2 wk course ampicillin per ID recommendation, returned w/ L Knee pain, edema w/ ED aspiration w/ + Cx w/ E. fecalis. 08/29/[address] Bryant w/ I+D, complete synovectomy left knee, L knee polyethylene exchange 1 component revision w/ noted overt gross purulence in the OR, pending finalization from OR cultures, currently noting GP organism, GPC. Maintained currently on ampicillin per ID discretion, prior was on Vanc and Zosyn pending cultures. PRN pain regimen, PT, OT, CM for discharge planning. Bld Cx repeat currently negative. Repeat TIM needed, planned 09/01/17 AM. Plan Port placement once repeat Bld Cx negative and TIM resulted per discussion with ID and also Dr. Hernandez. (2) Valvular Heart Disease: History of aortic valve stenosis status post aortic valve replacement with bioprosthetic material, TIM during recent admission stable appearing, no valvular vegetations noted. Noted splinter hemorrhage on his L 2nd toe per ID otherwise no signs endocarditis. Repeat Bld Cx now negative, discussed with ID and will request repeat TIM. If positive would need dual therapy, discussed w/ Dr. Frye, planned 09/01/17 repeat TIM, NPO after midnight. (3) CKD stage IV w/ Solitary kidney w/ Hx renal cell carcinoma: Patient status post nephrectomy, admission BUN/Cr 58/3.39, 08/31/17 BUN/Cr 48/3.02, baseline appears 2.9, recent vanc regimen, transitioned to amp per ID. Continue to monitor fx. Defer PICC given possible needs for future HD, planned port placement per Dr. Hernandez once assure Bld Cx without growth and TIM repeat resulted. (4) Diabetes mellitus type II w/ Neuropathy: Hold oral home regimen, ADA diet, accu checks w/ ISS. (5) Acute on Chronic AOCD/Fe deficiency anemia: Admission Hgb 9.3, maintain on home Fe supplementation, trending CBC. 08/31/17 Hgb 7.5, given cardiac history will proceed w/ transfusion 1 u PRBC, goal >/= 8. (6) CAD: s/p CABG, maintain on home regimen BB, not on statin secondary to allergy, xarelto addition as noted, ASA no listed outpatient from prior, ? thrombocytopenia history. (7) Hypertension: Continue home regimen including labetaolol, Cardizem, PRN hydralazine. (8) Hyperlipidemia: Statin allergy. (9) DVT Prophylaxis: SCDs, xarelto with Plt observation/monitoring, hold if trending downward. Code Visit Inpatient E&M: [id number] [facility] Hosp L3
--- NOTE | 2017-08-31 10:04 | PCM.PN.ID ---
Subjective: Feeling ok, knee pain controlled. No fever, mild nausea yesterday. - Physical Exam General: Alert, Cooperative, No apparent distress Lungs: Clear to auscultation, Normal air movement Cardiovascular: Regular rate, Regular Rhythm, Murmur Abdomen: Soft, Non Tender, Non-Distended Skin: No rashes Musculoskeletal: - - LLE wrapped Vital Signs Temp Pulse Resp BP Pulse Ox 98.6 F 60 18 110/62 98 08/31/17 08:23 08/31/17 08:30 08/31/17 08:23 08/31/17 08:23 08/31/17 08:23 Oxygen Flow Rate 2 Oxygen Delivery Method Room Air Weight: 93.4 kg Body Mass Index (BMI) 29.5 Finger Stick Blood Glucose 129 Intake and Output for Last 24 Hours 08/29/17 08/30/17 08/31/17 23:59 23:59 23:59 Intake Total 2576 / 2576 1350 / 1350 726 / 726 Output Total 2425 / 2425 1875 / 1875 825 / 825 Balance 151 / 151 -525 / -525 -99 / -99 Microbiology Past 72 Hours 08/28/17 08:35 Gram Stain - Final Fluid - Synovial (joint) Body Fluid Culture - Preliminary Enterococcus faecalis 08/29/17 Unknown Gram Stain - Final Biopsy - Tissue Wound Culture - Preliminary Gram positive organism 08/29/17 Unknown Gram Stain - Final Biopsy - Tissue Wound Culture - Preliminary Gram Positive Cocci 08/29/17 Unknown Gram Stain - Final Biopsy - Tissue Wound Culture - Preliminary Gram positive organism 08/28/17 12:40 Blood Culture - Preliminary Blood Culture (Wb) - Anticubital Left No growth in 48 hours. Laboratory Tests Past 24 Hrs 08/31/17 08/31/17 08/31/17 05:36 05:36 09:50 WBC 10.0 RBC 2.71 L Hgb 7.5 L Hct 23.3 L MCV 86.0 MCH 27.7 MCHC 32.2 RDW 16.0 H RDW Differential 50.2 H Plt Count 141 L MPV 9.3 Sodium 131 L Potassium 4.0 Chloride 98 Carbon Dioxide 23.0 Anion Gap 10 BUN 48 H Creatinine 3.02 H Estim Creat Clear Calc 21.49 Est GFR (MDRD) Af Amer 26 L Est GFR (MDRD) Non-Af 22 L BUN/Creatinine Ratio 15.9 Glucose 155 H Calcium 8.2 L Blood Type Pending Antibody Screen Pending Crossmatch See Detail POC Glucose 08/31/17 08/30/17 08/30/17 07:02 21:50 16:37 POC Glucose 146 H 127 H 125 H 08/30/17 11:19 POC Glucose 166 H Route of nutrition/ use of supplements: [] Nutritional Intake: [] IV Site: [] Irving Catheter: [] - Assessment/Plan Antibiotics: [] Assessment/Plan: [] Active and Suspected Problems Septic arthritis (Acute) Bacteremia due to Enterococcus (Acute) 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 Has h/o CKD and bioprosthetic AVR - repeat bcx today. Taken to OR 08/[address] Bryant for debridement with poly exchange. Has splinter hemorrhage on L 2nd toe, no other signs of endocarditis. Order TIM. Has lost iv access. Risk for vascular stenosis with his CKD, plan is for midline currently and surg consult for resident assistant cna central access. If TIM shows endocarditis, will add additional abx for synergy. Continue ampicillin. Vanc stopped. D/w Dr. Bang, will follow.
[2017-08-31] MEDS: dilTIAZem CD 180 MG Capsule PO ×2 (11:06→22:20)
[2017-08-31] MEDS: Docusate Sodium 100 MG Capsule PO (11:06)
[2017-08-31] MEDS: Famotidine 20 MG Tablet PO (11:06)
[2017-08-31] MEDS: Labetalol 100 MG Tablet PO ×2 (11:07→22:20)
[2017-08-31] MEDS: Senna/Docusate Sodium 1 Tablet 2 TABLET PO (11:07)
[2017-08-31 11:46] LABS: Bedside Glucose 147 mg/dL (70-110)
--- NOTE | 2017-08-31 13:51 | NURSING ---
in and got blood vitals for beeping IV. verbalized concern that pt is confused, discussed w/ primary RN. Updated her on Vitals as well.
--- NOTE | 2017-08-31 14:13 | CASEMGMT ---
Social Work Note Face to face with the pt and his to discuss discharge planning. Introduced self and role at [facility]. Discuss that [facility]CU does not have any beds presently and SW has placed the pt on the list for TCU in case something were to become available. Inquire if pt would like SW to check on availability at another facility and his states no, that there is too much infection. We do not even go to [facility] so that we can avoid infection. Confirm with pt and his that there plan will be for discharge home if a bed on TCU does not become available by time of discharge. Updated RN KATHY Canela - who will setup for home unless TCU has availability arise. Will continue to follow and assist as needed. Marisol Youssef, [employer], [employer]
[2017-08-31 16:03] LABS: Pathologist Comment Reviewed
[2017-08-31 17:01] LABS: Bedside Glucose 139 mg/dL (70-110)
[2017-08-31 22:21] LABS: Bedside Glucose 149 mg/dL (70-110)
[2017-08-31] MEDS: 0.9% Normal Saline 1,000 ML 75 ML IV (23:24)
[2017-09-01] VITALS (9 sets, daily range): BP systolic 114–146; BP diastolic 63–78; PULSE 61–74; RESP 18–20; TEMP 36.4–36.6; O2SAT 93–100
[2017-09-01 06:22] LABS: Hematocrit 23.1 % (40-54); Hemoglobin 7.5 g/dl (13.0-16.5); Mean Corp Hgb Conc 32.5 g/gl (32-36); Mean Corpuscular Hgb 27.3 pg (27.0-32.0); Mean Platelet Vol. 9.4 fl (6.2-12.0); Platelet Count 131 K/mm3 (150-450); RBC Distribution Width CV 16.5 % (11.6-14.6); RBC Distribution Width SD 51.3 fl (35.1-43.9); Red Blood Count 2.75 M/mm3 (4.6-6.2); White Blood Count 7.9 K/mm3 (4.4-11.0)
[2017-09-01 06:23] LABS: Scan Indicated on CBC? Y/N NO
[2017-09-01 06:43] LABS: Anion Gap 11 (5-15); BUN 59 mg/dL (7-18); BUN/Creat Ratio 17.9 RATIO (10-20); Chloride 97 mmol/L (98-107); EST Glomerular Filtration Rate 19 mL/min (>60); Est Glom Filt Rate - Afr Amer 24 mL/min (>60); Estimated Creatinine Clearance 19.66 ml/min; Glucose 144 mg/dL (74-106); Sodium Level 129 mmol/L (136-145)
[2017-09-01 07:01] LABS: Bedside Glucose 137 mg/dL (70-110)
--- NOTE | 2017-09-01 08:01 | PCM.PN.HOSP ---
Subjective: Patient with no acute events overnight per self and per nursing report. This review of labs this morning including mild increased creatinine with change from Xarelto to Eliquis as well as hemoglobin similar today prior despite 1 unit PRBC with plan for additional PRBC administration. Discussed patient renal status at length and notes following with mushroom spawn maker in [place]. Patient still having pain in the L knee, primarily with usage, improving. Planning TCU transition once medically appropriate per therapy recommendations. Patient denies fevers, chills, nausea, emesis, abdominal pain, chest pain or dyspnea. Objective: Physical Examination: General: awake, alert, oriented x 3 and cooperative, seated upright in bedside chair, in no apparent distress. Skin: normal color, turgor, no icterus, cyanosis except diffuse bilateral upper extremity ecchymoses, right knee with dressing and SAKINA wrap in place, no drainage noted. HEENT: AT/NC, EOMI, PERRLA, MMM. Lungs: CTA bilaterally, moderate effort, mild decrease BL bases, no rales, ronchi or wheezing. Heart: Regular rate and rhythm; no gallop, rub audible, s/p AVR. Abdomen: soft, overweight, NTTP, ND, normal BS. Extremities: no cyanosis, clubbing, s/p OR R knee dressing, ACEI in place, no drainage, distal pulses intact. Neurological: patient awake, alert, oriented x 3; cognitive function intact; pupils equally reactive to light and accomodation; cranial nerves II-XII grossly normal, moving all 4 extremities except expected limitation LLE, strength accordingly moderately to severely globally decreased, improving. Psychiatric: affect appears normal, no acute evidence of depressive or anxiety feelings. Vitals/I&O's: Vital Signs Temp Pulse Resp BP Pulse Ox 97.6 F L 74 20 H 132/67 H 94 09/01/17 03:30 09/01/17 03:30 09/01/17 03:30 09/01/17 03:30 09/01/17 07:33 Oxygen Flow Rate 2 Oxygen Delivery Method Room Air Weight: 205 lb 14.588 oz Body Mass Index (BMI) 29.5 Finger Stick Blood Glucose 129 Intake and Output for Last 24 Hours 08/30/17 08/31/17 09/01/17 23:59 23:59 23:59 Intake Total 1350 / 1350 2186 / 2186 912 / 912 Output Total 1875 / 1875 1500 / 1500 625 / 625 Balance -525 / -525 686 / 686 287 / 287 Microbiology Past 72 Hours 08/29/17 13:50 Blood Culture (Wb) - Anticubital Left Blood Culture - Preliminary No growth in 48 hours. 08/28/17 08:35 Fluid - Synovial (joint) Gram Stain - Final 08/28/17 08:35 Fluid - Synovial (joint) Body Fluid Culture - Preliminary Enterococcus faecalis 08/28/17 08:35 Fluid - Synovial (joint) Anaerobic Culture - Preliminary Checking for anaerobes, further studies to follow. 08/29/17 Unknown Biopsy - Tissue Gram Stain - Final 08/29/17 Unknown Biopsy - Tissue Wound Culture - Preliminary Enterococcus faecalis 08/29/17 Unknown Biopsy - Tissue Gram Stain - Final 08/29/17 Unknown Biopsy - Tissue Wound Culture - Preliminary GPC Poss Enterococcus sp 08/29/17 Unknown Biopsy - Tissue Gram Stain - Final 08/29/17 Unknown Biopsy - Tissue Wound Culture - Preliminary GPC Poss Enterococcus sp 08/28/17 12:40 Blood Culture (Wb) - Anticubital Left Blood Culture - Preliminary No growth in 48 hours. Laboratory Results 08/28/17 08:35: Synovial Path Comment Reviewed 08/31/17 09:50: Blood Type A POSITIVE, Antibody Screen NEGATIVE, Crossmatch See Detail 08/31/17 11:36: POC Glucose 147 H 08/31/17 16:58: POC Glucose 139 H 08/31/17 22:08: POC Glucose 149 H 09/01/17 05:50: WBC 7.9, RBC 2.75 L, Hgb 7.5 L, Hct 23.1 L, MCV 84.0, MCH 27.3, MCHC 32.5, RDW 16.5 H, RDW Differential 51.3 H, Plt Count 131 L, MPV 9.4 09/01/17 05:50: Sodium 129 L, Potassium 4.0, Chloride 97 L, Carbon Dioxide 21.0, Anion Gap 11, BUN 59 H, Creatinine 3.30 H, Estim Creat Clear Calc 19.66, Est GFR (MDRD) Af Amer 24 L, Est GFR (MDRD) Non-Af 19 L, BUN/Creatinine Ratio 17.9, Glucose 144 H, Calcium 8.0 L 09/01/17 06:32: POC Glucose 137 H Current Medications Acetaminophen (Tylenol) 650 mg PO Q4H PRN PRN PRN Reason: FEVER Acetaminophen (Tylenol) 650 mg PO Q6H PRN PRN PRN Reason: PAIN Ascorbic Acid (Vitamin C) 1,000 mg PO DAILY@0800 [facility] Last Admin: 08/31/17 08:31 Dose: 1,000 mg Bisacodyl (Dulcolax) 5 mg PO DAILY PRN PRN PRN Reason: Constipation Cholecalciferol (Vitamin D) 2,000 unit PO DAILY [facility] Last Admin: 08/31/17 11:07 Dose: 2,000 unit Dextrose (D50w Syringe) 0 gm IV X1 PRN; Protocol PRN Reason: Hypoglycemia Diltiazem HCl (Cardizem Cd) 180 mg PO BID [facility] Last Admin: 08/31/17 22:20 Dose: 180 mg Docusate Sodium (Colace) 100 mg PO DAILY [facility] Last Admin: 08/31/17 11:06 Dose: 100 mg Famotidine (Pepcid) 20 mg PO DAILY [facility] Last Admin: 08/31/17 11:06 Dose: 20 mg Ferrous Sulfate (Ferrous Sulfate) 325 mg PO DAILYCM [facility] Last Admin: 08/31/17 08:30 Dose: 325 mg Glucagon () 1 mg IM .X1 PRN PRN Reason: Hypoglycemia Hydromorphone HCl (Dilaudid) 1 mg IV Q4H PRN PRN PRN Reason: SEVERE PAIN (6-10/10) Last Admin: 08/30/17 18:26 Dose: 1 mg Ampicillin Sodium 2 gm/ Sodium (Chloride) 100 mls @ 150 mls/hr IV Q12 [facility] Last Admin: 08/31/17 22:19 Dose: 150 mls/hr Sodium Chloride () 1,000 mls @ 75 mls/hr IV .[id number] [facility] Last Admin: 08/31/17 23:24 Dose: 75 mls/hr Insulin Aspart (Novolog Flexpen (Bkc)) 0 units SC ACHS [facility] PRN Reason: Protocol Last Admin: 09/01/17 06:35 Dose: Not Given Labetalol HCl (Trandate) 100 mg PO BID [facility] Last Admin: 08/31/17 22:20 Dose: 100 mg Magnesium Hydroxide (Milk Of Magnesia) 30 ml PO DAILY PRN PRN PRN Reason: Constipation Morphine Sulfate (Morphine) 2 - 4 mg IV Q2H PRN PRN PRN Reason: SEVERE PAIN (6-10/10) Last Admin: 08/29/17 17:29 Dose: 4 mg Multivitamins (Multivitamin) 1 tablet PO DAILYCM [facility] Last Admin: 08/31/17 08:31 Dose: 1 tablet Nateglinide (Starlix) 30 mg PO TIDCM [facility] Last Admin: 08/31/17 17:20 Dose: 30 mg Nutritional Formula (Lactose Free) (Glucerna Shake) 120 ml PO TIDCM [facility] Last Admin: 08/31/17 17:20 Dose: 120 ml Ondansetron HCl (Zofran) 4 mg IV Q8H PRN PRN PRN Reason: NAUSEA Promethazine HCl (Phenergan (Ll)) 12.5 mg IM Q6H PRN PRN; Protocol PRN Reason: NAUSEA/VOMITING Rivaroxaban (Xarelto) 10 mg PO DAILY@0600 [facility] Last Admin: 08/31/17 05:33 Dose: 10 mg Senna/Docusate Sodium (Senokot-S, Lesia-Colace) 2 tablet PO BID [facility] Last Admin: 08/31/17 22:20 Dose: Not Given Sodium Chloride () 5 - 30 ml IV UD PRN PRN Reason: SALINE FLUSH Last Admin: 08/30/17 18:26 Dose: 10 ml Tramadol HCl (Ultram (G)) 50 - 100 mg PO Q12H PRN PRN Reason: MOD-SEVERE PAIN (4-10/10) Last Admin: 08/31/17 11:37 Dose: 50 mg Assessment/Plan The patient is a 76 y/o M w/ PMHx: CAD s/p CABG x 3, Valvular Heart Disease w Aortic Sclerosis, HTN, HLD, CKD stage IV w/ Solitary Kidney, AOCD/Fe deficiency anemia, Diabetes mellitus type II, Overweight who presents to the [facility] ED on 08/31/17 with recent history of enterococcal bacteremia of unclear etiology initially with now onset L knee pain, swelling with ED evaluation, aspiration performed w/ Cx obtained resulted + E. Faecalis. (1) Left knee periprosthetic infection w/ E. fecalis Septic Arthritis w/ E. Fecalis Bacteremia: Recent admission prior w/ + cultures, TIM performed which was unremarkable, completed 2 wk course ampicillin per ID recommendation, returned w/ L Knee pain, edema w/ ED aspiration w/ + Cx w/ E. fecalis. 08/29/[address] Bryant w/ I+D, complete synovectomy left knee, L knee polyethylene exchange 1 component revision w/ noted overt gross purulence in the OR, pending finalization from OR cultures, currently noting GP organism, GPC. Maintained currently on ampicillin per ID discretion, prior was on Vanc and Zosyn pending cultures. PRN pain regimen. Bld Cx repeat currently negative. Repeat TIM 09/01/17 planned today 11 am. Plan Port placement once repeat Bld Cx negative and TIM resulted per discussion with ID and also Dr. Hernandez, would plan placement given awaiting cultures possible . PT, OT, CM for discharge planning with plan for TCU placement following allowance for port placement, possible Thursday. (2) Valvular Heart Disease: History of aortic valve stenosis status post aortic valve replacement with bioprosthetic material, TIM during recent admission stable appearing, no valvular vegetations noted. Noted splinter hemorrhage on his L 2nd toe per ID otherwise no signs endocarditis. Repeat Bld Cx now negative, discussed with ID and will request repeat TIM. If positive would need dual therapy, discussed w/ Dr. Frye, planned 09/01/17 repeat TIM 11 am. (3) CKD stage IV w/ Solitary kidney w/ Hx renal cell carcinoma: Patient status post nephrectomy, admission BUN/Cr 58/3.39, 08/31/17 BUN/Cr 48/3.02, baseline appears 2.9, recent vanc regimen, transitioned to amp per ID. Continue to monitor fx. Deferred PICC given possible needs for future HD, planned port placement per Dr. Hernandez once assure Bld Cx without growth and TIM repeat resulted as noted, would intend as Bld Cx 08/31/17 should result tomorrow. 09/01/17 BUN/Cr 59/3.30. Will need to follow-up with his Medical Claims Specialist upon discharge, if worsened would plan consult w/ Dr. Pollock. (4) Diabetes mellitus type II w/ Neuropathy: Hold oral home regimen, ADA diet, accu checks w/ ISS. (5) Acute on Chronic AOCD/Fe deficiency anemia: Admission Hgb 9.3, maintain on home Fe supplementation, trending CBC. 08/31/17 Hgb 7.5, given cardiac history transfusion 1 u PRBC w/ goal >/= 8 performed, 09/01/17 repeat Hgb 7.5, no change, will give additional 1 u PRBC, possibly more intra-operative loss than thought. (6) CAD: s/p CABG, maintain on home regimen BB, not on statin secondary to allergy, ASA no listed outpatient from prior, ? thrombocytopenia history, changed xarelto to eliquis given renal fx. (7) Hypertension: Continue home regimen including labetaolol, Cardizem, PRN hydralazine. (8) Hyperlipidemia: Statin allergy. (9) DVT Prophylaxis: SCDs, xarelto d/c given renal function, change to eliquis low dose but will discuss with pharmacy, continue to observe plts. Code Visit Inpatient E&M: 86951 Subs Hosp L2
--- NOTE | 2017-09-01 08:07 | PN_ITS ---
Subjective: Patient with no acute events overnight per self and per nursing report. This review of labs this morning including mild increased creatinine with change from Xarelto to Eliquis as well as hemoglobin similar today prior despite 1 unit PRBC with plan for additional PRBC administration. Discussed patient renal status at length and notes following with poultry scalder in [place]. Patient still having pain in the L knee, primarily with usage, improving. Planning TCU transition once medically appropriate per therapy recommendations. Patient denies fevers, chills, nausea, emesis, abdominal pain, chest pain or dyspnea. Objective: Physical Examination: General: awake, alert, oriented x 3 and cooperative, seated upright in bedside chair, in no apparent distress. Skin: normal color, turgor, no icterus, cyanosis except diffuse bilateral upper extremity ecchymoses, right knee with dressing and SAKINA wrap in place, no drainage noted. HEENT: AT/NC, EOMI, PERRLA, MMM. Lungs: CTA bilaterally, moderate effort, mild decrease BL bases, no rales, ronchi or wheezing. Heart: Regular rate and rhythm; no gallop, rub audible, s/p AVR. Abdomen: soft, overweight, NTTP, ND, normal BS. Extremities: no cyanosis, clubbing, s/p OR R knee dressing, ACEI in place, no drainage, distal pulses intact. Neurological: patient awake, alert, oriented x 3; cognitive function intact; pupils equally reactive to light and accomodation; cranial nerves II-XII grossly normal, moving all 4 extremities except expected limitation LLE, strength accordingly moderately to severely globally decreased, improving. Psychiatric: affect appears normal, no acute evidence of depressive or anxiety feelings. Vitals/I&O's: Vital Signs Temp Pulse Resp BP Pulse Ox 97.6 F L 74 20 H 132/67 H 94 09/01/17 03:30 09/01/17 03:30 09/01/17 03:30 09/01/17 03:30 09/01/17 07:33 Oxygen Flow Rate 2 Oxygen Delivery Method Room Air Weight: 205 lb 14.588 oz Body Mass Index (BMI) 29.5 Finger Stick Blood Glucose 129 Intake and Output for Last 24 Hours 08/30/17 08/31/17 09/01/17 23:59 23:59 23:59 Intake Total 1350 / 1350 2186 / 2186 912 / 912 Output Total 1875 / 1875 1500 / 1500 625 / 625 Balance -525 / -525 686 / 686 287 / 287 Microbiology Past 72 Hours 08/29/17 13:50 Blood Culture (Wb) - Anticubital Left Blood Culture - Preliminary No growth in 48 hours. 08/28/17 08:35 Fluid - Synovial (joint) Gram Stain - Final 08/28/17 08:35 Fluid - Synovial (joint) Body Fluid Culture - Preliminary Enterococcus faecalis 08/28/17 08:35 Fluid - Synovial (joint) Anaerobic Culture - Preliminary Checking for anaerobes, further studies to follow. 08/29/17 Unknown Biopsy - Tissue Gram Stain - Final 08/29/17 Unknown Biopsy - Tissue Wound Culture - Preliminary Enterococcus faecalis 08/29/17 Unknown Biopsy - Tissue Gram Stain - Final 08/29/17 Unknown Biopsy - Tissue Wound Culture - Preliminary GPC Poss Enterococcus sp 08/29/17 Unknown Biopsy - Tissue Gram Stain - Final 08/29/17 Unknown Biopsy - Tissue Wound Culture - Preliminary GPC Poss Enterococcus sp 08/28/17 12:40 Blood Culture (Wb) - Anticubital Left Blood Culture - Preliminary No growth in 48 hours. Laboratory Results 08/28/17 08:35: Synovial Path Comment Reviewed 08/31/17 09:50: Blood Type A POSITIVE, Antibody Screen NEGATIVE, Crossmatch See Detail 08/31/17 11:36: POC Glucose 147 H 08/31/17 16:58: POC Glucose 139 H 08/31/17 22:08: POC Glucose 149 H 09/01/17 05:50: WBC 7.9, RBC 2.75 L, Hgb 7.5 L, Hct 23.1 L, MCV 84.0, MCH 27.3, MCHC 32.5, RDW 16.5 H, RDW Differential 51.3 H, Plt Count 131 L, MPV 9.4 09/01/17 05:50: Sodium 129 L, Potassium 4.0, Chloride 97 L, Carbon Dioxide 21.0 , Anion Gap 11, BUN 59 H, Creatinine 3.30 H, Estim Creat Clear Calc 19.66, Est GFR (MDRD) Af Amer 24 L, Est GFR (MDRD) Non-Af 19 L, BUN/Creatinine Ratio 17.9, Glucose 144 H, Calcium 8.0 L 09/01/17 06:32: POC Glucose 137 H Current Medications Acetaminophen (Tylenol) 650 mg PO Q4H PRN PRN PRN Reason: FEVER Acetaminophen (Tylenol) 650 mg PO Q6H PRN PRN PRN Reason: PAIN Ascorbic Acid (Vitamin C) 1,000 mg PO DAILY@0800 [facility] Last Admin: 08/31/17 08:31 Dose: 1,000 mg Bisacodyl (Dulcolax) 5 mg PO DAILY PRN PRN PRN Reason: Constipation Cholecalciferol (Vitamin D) 2,000 unit PO DAILY [facility] Last Admin: 08/31/17 11:07 Dose: 2,000 unit Dextrose (D50w Syringe) 0 gm IV X1 PRN; Protocol PRN Reason: Hypoglycemia Diltiazem HCl (Cardizem Cd) 180 mg PO BID [facility] Last Admin: 08/31/17 22:20 Dose: 180 mg Docusate Sodium (Colace) 100 mg PO DAILY [facility] Last Admin: 08/31/17 11:06 Dose: 100 mg Famotidine (Pepcid) 20 mg PO DAILY [facility] Last Admin: 08/31/17 11:06 Dose: 20 mg Ferrous Sulfate (Ferrous Sulfate) 325 mg PO DAILYCM [facility] Last Admin: 08/31/17 08:30 Dose: 325 mg Glucagon () 1 mg IM .X1 PRN PRN Reason: Hypoglycemia Hydromorphone HCl (Dilaudid) 1 mg IV Q4H PRN PRN PRN Reason: SEVERE PAIN (6-10/10) Last Admin: 08/30/17 18:26 Dose: 1 mg Ampicillin Sodium 2 gm/ Sodium (Chloride) 100 mls @ 150 mls/hr IV Q12 [facility] Last Admin: 08/31/17 22:19 Dose: 150 mls/hr Sodium Chloride () 1,000 mls @ 75 mls/hr IV .[id number] [facility] Last Admin: 08/31/17 23:24 Dose: 75 mls/hr Insulin Aspart (Novolog Flexpen (Bkc)) 0 units SC ACHS [facility] PRN Reason: Protocol Last Admin: 09/01/17 06:35 Dose: Not Given Labetalol HCl (Trandate) 100 mg PO BID [facility] Last Admin: 08/31/17 22:20 Dose: 100 mg Magnesium Hydroxide (Milk Of Magnesia) 30 ml PO DAILY PRN PRN PRN Reason: Constipation Morphine Sulfate (Morphine) 2 - 4 mg IV Q2H PRN PRN PRN Reason: SEVERE PAIN (6-10/10) Last Admin: 08/29/17 17:29 Dose: 4 mg Multivitamins (Multivitamin) 1 tablet PO DAILYCM [facility] Last Admin: 08/31/17 08:31 Dose: 1 tablet Nateglinide (Starlix) 30 mg PO TIDCM [facility] Last Admin: 08/31/17 17:20 Dose: 30 mg Nutritional Formula (Lactose Free) (Glucerna Shake) 120 ml PO TIDCM [facility] Last Admin: 08/31/17 17:20 Dose: 120 ml Ondansetron HCl (Zofran) 4 mg IV Q8H PRN PRN PRN Reason: NAUSEA Promethazine HCl (Phenergan (Ll)) 12.5 mg IM Q6H PRN PRN; Protocol PRN Reason: NAUSEA/VOMITING Rivaroxaban (Xarelto) 10 mg PO DAILY@0600 [facility] Last Admin: 08/31/17 05:33 Dose: 10 mg Senna/Docusate Sodium (Senokot-S, Lesia-Colace) 2 tablet PO BID [facility] Last Admin: 08/31/17 22:20 Dose: Not Given Sodium Chloride () 5 - 30 ml IV UD PRN PRN Reason: SALINE FLUSH Last Admin: 08/30/17 18:26 Dose: 10 ml Tramadol HCl (Ultram (G)) 50 - 100 mg PO Q12H PRN PRN Reason: MOD-SEVERE PAIN (4-10/10) Last Admin: 08/31/17 11:37 Dose: 50 mg Assessment/Plan The patient is a 76 y/o M w/ PMHx: CAD s/p CABG x 3, Valvular Heart Disease w Aortic Sclerosis, HTN, HLD, CKD stage IV w/ Solitary Kidney, AOCD/Fe deficiency anemia, Diabetes mellitus type II, Overweight who presents to the [facility] ED on 08/31 with recent history of enterococcal bacteremia of unclear etiology initially with now onset L knee pain, swelling with ED evaluation, aspiration performed w/ Cx obtained resulted + E. Faecalis. (1) Left knee periprosthetic infection w/ E. fecalis Septic Arthritis w/ E. Fecalis Bacteremia: Recent admission prior w/ + cultures, TIM performed which was unremarkable, completed 2 wk course ampicillin per ID recommendation, returned w/ L Knee pain, edema w/ ED aspiration w/ + Cx w/ E. fecalis. 08/29/[address] Bryant w/ I+D, complete synovectomy left knee, L knee polyethylene exchange 1 component revision w/ noted overt gross purulence in the OR, pending finalization from OR cultures, currently noting GP organism, GPC. Maintained currently on ampicillin per ID discretion, prior was on Vanc and Zosyn pending cultures. PRN pain regimen. Bld Cx repeat currently negative. Repeat TIM planned today 11 am. Plan Port placement once repeat Bld Cx negative and TIM resulted per discussion with ID and also Dr. Hernandez, would plan placement given awaiting cultures possible . PT, OT, CM for discharge planning with plan for TCU placement following allowance for port placement, possible Thursday. (2) Valvular Heart Disease: History of aortic valve stenosis status post aortic valve replacement with bioprosthetic material, TIM during recent admission stable appearing, no valvular vegetations noted. Noted splinter hemorrhage on his L 2nd toe per ID otherwise no signs endocarditis. Repeat Bld Cx now negative , discussed with ID and will request repeat TIM. If positive would need dual therapy, discussed w/ Dr. Frye, planned 09/01/17 repeat TIM 11 am. (3) CKD stage IV w/ Solitary kidney w/ Hx renal cell carcinoma: Patient status post nephrectomy, admission BUN/Cr 58/3.39, 08/31/17 BUN/Cr 48/3.02, baseline appears 2.9, recent vanc regimen, transitioned to amp per ID. Continue to monitor fx. Deferred PICC given possible needs for future HD, planned port placement per Dr. Hernandez once assure Bld Cx without growth and TIM repeat resulted as noted, would intend as Bld Cx 08/31/17 should result tomorrow. 09/01/17 BUN/Cr 59/3.30. Will need to follow-up with his Building Illuminating Engineer upon discharge, if worsened would plan consult w/ Dr. Pollock. (4) Diabetes mellitus type II w/ Neuropathy: Hold oral home regimen, ADA diet, accu checks w/ ISS. (5) Acute on Chronic AOCD/Fe deficiency anemia: Admission Hgb 9.3, maintain on home Fe supplementation, trending CBC. 08/31/17 Hgb 7.5, given cardiac history transfusion 1 u PRBC w/ goal >/= 8 performed, 09/01/17 repeat Hgb 7.5, no change , will give additional 1 u PRBC, possibly more intra-operative loss than thought. (6) CAD: s/p CABG, maintain on home regimen BB, not on statin secondary to allergy, ASA no listed outpatient from prior, ? thrombocytopenia history, changed xarelto to eliquis given renal fx. (7) Hypertension: Continue home regimen including labetaolol, Cardizem, PRN hydralazine. (8) Hyperlipidemia: Statin allergy. (9) DVT Prophylaxis: SCDs, xarelto d/c given renal function, change to eliquis low dose but will discuss with pharmacy, continue to observe plts. Code Visit Inpatient E&M: 90120 Subs Hosp L2
[2017-09-01] MEDS: Famotidine 20 MG Tablet PO (08:38)
[2017-09-01] MEDS: Ascorbic Acid 500 MG Tablet 1000 MG PO (08:38)
[2017-09-01] MEDS: dilTIAZem CD 180 MG Capsule PO ×2 (08:38→22:02)
[2017-09-01] MEDS: Multivitamins,Therapeutic Tablet 1 TABLET PO (08:38)
[2017-09-01] MEDS: Labetalol 100 MG Tablet PO ×2 (08:38→22:02)
[2017-09-01] MEDS: Ferrous Sulfate 325 MG Tablet PO (08:38)
[2017-09-01] MEDS: Docusate Sodium 100 MG Capsule PO (08:39)
[2017-09-01] MEDS: APIXABAN 2.5 MG TABLET PO (09:41)
--- NOTE | 2017-09-01 10:43 | PN.ID_ITS ---
Subjective: Feeling ok, TIM this AM, no fever, no n/v/d. - Physical Exam General: Alert, Cooperative, No apparent distress Lungs: Clear to auscultation, Normal air movement Cardiovascular: Regular rate, Regular Rhythm, Murmur Abdomen: Soft, Non Tender, Non-Distended Extremities: - - L knee wrapped Skin: No rashes Vital Signs Temp Pulse Resp BP Pulse Ox 97.8 F 67 18 123/63 H 98 09/01/17 08:30 09/01/17 08:30 09/01/17 08:30 09/01/17 08:30 09/01/17 08:30 Oxygen Flow Rate 2 Oxygen Delivery Method Room Air Weight: 93.4 kg Body Mass Index (BMI) 29.5 Finger Stick Blood Glucose 129 Intake and Output for Last 24 Hours 08/30/17 08/31/17 09/01/17 23:59 23:59 23:59 Intake Total 1350 / 1350 2186 / 2186 912 / 912 Output Total 1875 / 1875 1500 / 1500 625 / 625 Balance -525 / -525 686 / 686 287 / 287 Microbiology Past 72 Hours 08/29/17 Unknown Gram Stain - Final Biopsy - Tissue Wound Culture - Final Enterococcus faecalis 08/29/17 Unknown Gram Stain - Final Biopsy - Tissue Wound Culture - Final Enterococcus faecalis 08/29/17 Unknown Gram Stain - Final Biopsy - Tissue Wound Culture - Final Enterococcus faecalis 08/28/17 08:35 Gram Stain - Final Fluid - Synovial (joint) Body Fluid Culture - Final Enterococcus faecalis Anaerobic Culture - Preliminary Checking for anaerobes, further studies to follow. 08/29/17 13:50 Blood Culture - Preliminary Blood Culture (Wb) - Anticubital Left No growth in 48 hours. 08/28/17 12:40 Blood Culture - Preliminary Blood Culture (Wb) - Anticubital Left No growth in 48 hours. Laboratory Tests Past 24 Hrs 08/28/17 08/31/17 09/01/17 08:35 09:50 05:50 WBC 7.9 RBC 2.75 L Hgb 7.5 L Hct 23.1 L MCV 84.0 MCH 27.3 MCHC 32.5 RDW 16.5 H RDW Differential 51.3 H Plt Count 131 L MPV 9.4 Sodium Potassium Chloride Carbon Dioxide Anion Gap BUN Creatinine Estim Creat Clear Calc Est GFR (MDRD) Af Amer Est GFR (MDRD) Non-Af BUN/Creatinine Ratio Glucose Calcium Synovial Path Comment Reviewed Blood Type A POSITIVE Antibody Screen NEGATIVE Crossmatch See Detail 09/01/17 05:50 WBC RBC Hgb Hct MCV MCH MCHC RDW RDW Differential Plt Count MPV Sodium 129 L Potassium 4.0 Chloride 97 L Carbon Dioxide 21.0 Anion Gap 11 BUN 59 H Creatinine 3.30 H Estim Creat Clear Calc 19.66 Est GFR (MDRD) Af Amer 24 L Est GFR (MDRD) Non-Af 19 L BUN/Creatinine Ratio 17.9 Glucose 144 H Calcium 8.0 L Synovial Path Comment Blood Type Antibody Screen Crossmatch POC Glucose 09/01/17 08/31/17 08/31/17 06:32 22:08 16:58 POC Glucose 137 H 149 H 139 H 08/31/17 11:36 POC Glucose 147 H Route of nutrition/ use of supplements: [] Nutritional Intake: [] IV Site: [] Irving Catheter: [] - Assessment/Plan Antibiotics: [] Assessment/Plan: [] Active and Suspected Problems Septic arthritis (Acute) Bacteremia due to Enterococcus (Acute) 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 Has h/o CKD and bioprosthetic AVR - repeat bcx neg since 08/29. Taken to OR 08/[address] Bryant for debridement with poly exchange. Has splinter hemorrhage on L 2nd toe , no other signs of endocarditis. Surgery consulte for exterminator central access. If TIM shows endocarditis, will add additional abx for synergy. Continue ampicillin. Plan on 6-8 weeks IV abx. D/w Dr. Bang, will follow.
--- NOTE | 2017-09-01 11:00 | ECHOTEE_ITS ---
Version 2 Reason For Study: murmur, vavlular heart disease, positive blood cultures Medication TIM probe passed with minimal difficulty. No complications were noted. Cetacaine Topical [place] given X3 orally. Versed 1 mg given slow IVP. Fentanyl 50 mcg given slow IVP. Left Ventricle Normal LV size. Left ventricular systolic function is normal. The estimated ejection fraction is 55 %. No regional wall motion abnormalities noted. Right Ventricle Normal RV size. Normal systolic function. Atria Bubble contrast study negative for right to left interatrial shunt. The left atrium is severely enlarged. No thrombus is detected in the left atrial appendage. The right atrium is mildly enlarged. Mitral Valve There is moderate to severe mitral annular calcification. Moderately severe (3+) eccentric mitral valve insufficiency. Tricuspid Valve Normal tricuspid valve. Mild to moderate (1-2+) tricuspid valve insufficiency. Aortic Valve Stable appearing bioprosthetic aortic valve apparatus. Pulmonic Valve Normal pulmonic valve. Vessels Normal aortic root. The pulmonary artery is normal size. Pericardium No pericardial effusion. Interpretation Summary Normal LV size. Left ventricular systolic function is normal. The estimated ejection fraction is 55 %. There is moderate to severe mitral annular calcification. Moderately severe (3+) eccentric mitral valve insufficiency. Mild to moderate (1-2+) tricuspid valve insufficiency. No vegetation seen Ordering Physician: Christine Bang Referring Physician: Dejuan Catherine Performed By: Kari Easley, RDCS, RVT
[2017-09-01 11:41] LABS: Bedside Glucose 126 mg/dL (70-110)
--- NOTE | 2017-09-01 15:42 | CON.PCM_ITS ---
Problem List (1) Bacteremia due to Enterococcus Status: Acute Reason for Consult Date of Consultation: 09/01/17 Reason for Consultation: In need of vascular port access for continuation of IV antibiotics History of Present Illness: The patient is a 76 year old M who presented to the ED with positive blood cultures from an ongoing infected left total knee replacement. Patient was taken back to surgery by Dr. Bryant for an irrigation, complete synovectomy and 1 component revision on 08/29/17. Patient notes his pain is much improved. Patient will need to have an extended time period of IV antibiotics. Medicine is requesting a vascular port-a-cath placement for easier accessibility. Patient denies previous port placement. Patient has had a previous CABG x 3 in 2016 at [facility] and history of aortic stenosis. Patient has a history of renal cell carcinoma and is s/p nephrectomy at [facility]. 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 He denies chest pain and shortness of breath. Past Medical History Past Medical History (Chronic Problems): Chronic Problems Hyperlipidemia (Chronic) Hypertension (Chronic) Osteoarthritis of left knee (Chronic) S/P CABG x 3 (Chronic) Triple bypass in July 2015 at [facility] in [place] CAD (coronary artery disease) (Chronic) Hypertension, essential (Chronic) DM2 (diabetes mellitus, type 2) (Chronic) Renal cell cancer (Chronic) S/P nephrectomy on January 13, 2016 at Chronic kidney disease (Chronic) Solitary kidney (Chronic) Aortic stenosis (Chronic) Allergies losartan potassium [From Cozaar] Allergy (Severe, Verified 08/28/17 04:00) Other valsartan [From Diovan HCT] Allergy (Severe, Verified 08/28/17 04:00) Other amlodipine besylate [From Norvasc] Allergy (Verified 08/28/17 04:00) Other doxazosin mesylate [From Cardura] Allergy (Verified 08/28/17 04:00) Other furosemide [From Lasix] Allergy (Verified 08/28/17 04:00) Other hydrochlorothiazide Allergy (Verified 08/28/17 04:00) Other metoprolol succinate [From Toprol XL] Allergy (Verified 08/28/17 04:00) Other simvastatin Allergy (Verified 08/28/17 04:00) Other oxycodone [From OxyIR] Adverse Reaction (Verified 08/30/17 10:36) tremors Hydrogenated Vegetable Oil Adverse Reaction (Uncoded 08/28/17 04:00) Upset Stomach vicodin Adverse Reaction (Uncoded 08/27/17 11:44) Other Home Medications: Ambulatory Orders Medication Instructions Recorded Ascorbic Acid [Vitamin C] 1,000 mg PO DAILY@0800 02/06/16 Multivitamin [Daily Multiple 1 each PO DAILY 02/06/16 Vitamin] Nateglinide [Starlix] 30 mg PO TIDCM 02/06/16 Cholecalciferol (Vitamin D3) 2,000 unit PO DAILY 07/28/17 [Vitamin D3] Docusate Sodium [Colace] 100 mg PO DAILY 07/28/17 Iron Polysaccharide Complex 325 mg PO DAILYCM 07/28/17 [Ferrex 150] Labetalol [Trandate (Beta Liz)] 100 mg PO BID 07/28/17 Diltiazem HCl [Diltiazem ER] 180 mg PO BID 07/29/17 Surgical History: cataract, coronary bypass surgery - X 3., herniorrhaphy - Umbilical., - - Hemorrhoidectomy, aortic valve replacement (bovine), cardiac stent, right nephrectomy 01/15/2016. Psychiatric History: No pertinent psych hx Lives: Spouse/ Significant Other Smoking Status: Former smoker Tobacco Use: Non-smoker Alcohol: None Drugs: None - *Family History Sibling History Items: Diabetes Paternal History Items: No pertinent history Maternal History Items: Cancer - breast Review of Systems Constitutional: Reports: Weakness, Fatigue HEENT: Denies: Head Aches, Sinus Congestion, Sinus Drainage Cardiovascular: Denies: Chest Pain, Palpitations Respiratory: Denies: Cough, Shortness of breath at rest, Sputum production Gastrointestinal: Denies: Abdominal Pain, Nausea, Vomiting Genitourinary: Denies: Dysuria Musculoskeletal: Reports: Joint Pain, Joint stiffness, Joint Tenderness Skin: Denies: Rash, Wounds Neurological: Denies: Numbness, Tingling, Focal weakness Psychiatric: Denies: Anxiety, Depression, Homicidal Ideations, Suicidal Ideations Hematologic/ Lymphatic: Reports: Easy Bruising, Easy Bleeding - Physical Exam General: Alert, Oriented x3, Cooperative HEENT: Atraumatic, PERRLA, EOMI, Normocephalic Lungs: Clear to auscultation, Normal air movement Cardiovascular: Regular rate, Murmur Abdomen: Bowel Sounds Present, Soft, Non Tender Extremities: No edema, Capillary Refill Less than 3 Seconds Skin: No rashes, No breakdown Musculoskeletal: No Tenderness to Palpation of Joints or Extremities Neurological: Neuro grossly intact Psych/Mental Status: Normal Affect, Appropriate Vital Signs Temp Pulse Resp BP Pulse Ox 97.5 F L 62 18 133/70 H 96 09/01/17 14:27 09/01/17 14:27 09/01/17 14:27 09/01/17 14:27 09/01/17 14:27 Oxygen Flow Rate 2 Oxygen Delivery Method Room Air Weight: 205 lb 14.588 oz Body Mass Index (BMI) 29.5 Finger Stick Blood Glucose 129 Intake and Output for Last 24 Hours 08/30/17 08/31/17 09/01/17 23:59 23:59 23:59 Intake Total 1350 / 1350 2186 / 2186 1415 / 1415 Output Total 1875 / 1875 1500 / 1500 625 / 625 Balance -525 / -525 686 / 686 790 / 790 Microbiology Past 72 Hours 08/29/17 Unknown Gram Stain - Final Biopsy - Tissue Wound Culture - Final Enterococcus faecalis 08/29/17 Unknown Gram Stain - Final Biopsy - Tissue Wound Culture - Final Enterococcus faecalis 08/29/17 Unknown Gram Stain - Final Biopsy - Tissue Wound Culture - Final Enterococcus faecalis 08/28/17 08:35 Gram Stain - Final Fluid - Synovial (joint) Body Fluid Culture - Final Enterococcus faecalis Anaerobic Culture - Preliminary Checking for anaerobes, further studies to follow. 08/29/17 13:50 Blood Culture - Preliminary Blood Culture (Wb) - Anticubital Left No growth in 48 hours. 08/28/17 12:40 Blood Culture - Preliminary Blood Culture (Wb) - Anticubital Left No growth in 48 hours. Laboratory Tests Past 24 Hrs 08/28/17 08/31/17 08/31/17 08:35 09:50 09:50 WBC RBC Hgb Hct MCV MCH MCHC RDW RDW Differential Plt Count MPV Sodium Potassium Chloride Carbon Dioxide Anion Gap BUN Creatinine Estim Creat Clear Calc Est GFR (MDRD) Af Amer Est GFR (MDRD) Non-Af BUN/Creatinine Ratio Glucose Calcium Synovial Path Comment Reviewed Crossmatch See Detail See Detail 09/01/17 09/01/17 05:50 05:50 WBC 7.9 RBC 2.75 L Hgb 7.5 L Hct 23.1 L MCV 84.0 MCH 27.3 MCHC 32.5 RDW 16.5 H RDW Differential 51.3 H Plt Count 131 L MPV 9.4 Sodium 129 L Potassium 4.0 Chloride 97 L Carbon Dioxide 21.0 Anion Gap 11 BUN 59 H Creatinine 3.30 H Estim Creat Clear Calc 19.66 Est GFR (MDRD) Af Amer 24 L Est GFR (MDRD) Non-Af 19 L BUN/Creatinine Ratio 17.9 Glucose 144 H Calcium 8.0 L Synovial Path Comment Crossmatch POC Glucose 09/01/17 09/01/17 08/31/17 11:14 06:32 22:08 POC Glucose 126 H 137 H 149 H 08/31/17 16:58 POC Glucose 139 H Assessment/Plan I have been consulted in conjunction with Dr. Hernandez. Impression: In need of Vascular access for IV antibiotics for septic arthritis. Plan: Discussed patient with Dr. Hernandez. Dr. Hernandez will plan to preform an internal jugular port-a-cath. We will hold patient's blood thinners starting today. Procedure was explained in detail, risks and benefits. Patient has had the opportunity to ask and have questions answered. Patient verbally understands and agrees with the plan.
--- NOTE | 2017-09-01 15:43 | PN.ORTHO_ITS ---
Subjective: Cultures growing enterococcus consistent with blood cultures. Patient up walking the halls today feeling better decreased drainage and saturation on his dressing. No numbness and tingling distally. No chest pain or shortness of breath. Knee pain is improving. Plan is for PICC line tomorrow. Currently unsure of exact disposition potentially home as his is done IV antibiotics in the past for him. - Physical Exam General: Alert, Oriented x3, Cooperative Extremities: - - Right lower extremity: Dressing is clean dry and intact Sensations intact to light touch saphenous, sural, superficial peroneal, deep peroneal, and tibial distributions Motors intact EHL, DF, PF calves are soft and supple Vital Signs Temp Pulse Resp BP Pulse Ox 97.5 F L 62 18 133/70 H 96 09/01/17 14:27 09/01/17 14:27 09/01/17 14:27 09/01/17 14:27 09/01/17 14:27 Oxygen Flow Rate 2 Oxygen Delivery Method Room Air Weight: 205 lb 14.588 oz Body Mass Index (BMI) 29.5 Finger Stick Blood Glucose 129 Intake and Output for Last 24 Hours 08/30/17 08/31/17 09/01/17 23:59 23:59 23:59 Intake Total 1350 / 1350 2186 / 2186 1415 / 1415 Output Total 1875 / 1875 1500 / 1500 625 / 625 Balance -525 / -525 686 / 686 790 / 790 Microbiology Past 72 Hours 08/29/17 Unknown Gram Stain - Final Biopsy - Tissue Wound Culture - Final Enterococcus faecalis 08/29/17 Unknown Gram Stain - Final Biopsy - Tissue Wound Culture - Final Enterococcus faecalis 08/29/17 Unknown Gram Stain - Final Biopsy - Tissue Wound Culture - Final Enterococcus faecalis 08/28/17 08:35 Gram Stain - Final Fluid - Synovial (joint) Body Fluid Culture - Final Enterococcus faecalis Anaerobic Culture - Preliminary Checking for anaerobes, further studies to follow. 08/29/17 13:50 Blood Culture - Preliminary Blood Culture (Wb) - Anticubital Left No growth in 48 hours. 08/28/17 12:40 Blood Culture - Preliminary Blood Culture (Wb) - Anticubital Left No growth in 48 hours. Laboratory Tests Past 24 Hrs 08/28/17 08/31/17 08/31/17 08:35 09:50 09:50 WBC RBC Hgb Hct MCV MCH MCHC RDW RDW Differential Plt Count MPV Sodium Potassium Chloride Carbon Dioxide Anion Gap BUN Creatinine Estim Creat Clear Calc Est GFR (MDRD) Af Amer Est GFR (MDRD) Non-Af BUN/Creatinine Ratio Glucose Calcium Synovial Path Comment Reviewed Crossmatch See Detail See Detail 09/01/17 09/01/17 05:50 05:50 WBC 7.9 RBC 2.75 L Hgb 7.5 L Hct 23.1 L MCV 84.0 MCH 27.3 MCHC 32.5 RDW 16.5 H RDW Differential 51.3 H Plt Count 131 L MPV 9.4 Sodium 129 L Potassium 4.0 Chloride 97 L Carbon Dioxide 21.0 Anion Gap 11 BUN 59 H Creatinine 3.30 H Estim Creat Clear Calc 19.66 Est GFR (MDRD) Af Amer 24 L Est GFR (MDRD) Non-Af 19 L BUN/Creatinine Ratio 17.9 Glucose 144 H Calcium 8.0 L Synovial Path Comment Crossmatch POC Glucose 09/01/17 09/01/17 08/31/17 11:14 06:32 22:08 POC Glucose 126 H 137 H 149 H 08/31/17 16:58 POC Glucose 139 H Assessment/Plan Acutely septic left total knee replacement. Postop day 3 irrigation debridement with synovectomy and polyethylene exchange 1. Infection: ID services on consultation. Plan for at least 6 weeks IV antibiotics will need to be monitored due to renal failure. PICC line to be placed tomorrow. Antibiotics per infectious disease service. Continue to follow cultures 2. Drainage: Dressing was changed today. Will monitor clinically. If continued drainage will consider placement of wound VAC prior to discharge 3. Pain control: Pain controlled with current regimen 4. PT: Weight-bear as tolerated activity as tolerated 5. DVT prophylaxis: Xarelto currently, SCDs 6. Acute postoperative anemia: Likely due to intraoperative blood loss patient receiving 2 units packed red blood cells for symptoms. [facility] Office:
[2017-09-01] MEDS: Glucerna Shake 120 ML LIQUID PO (16:18)
[2017-09-01 16:31] LABS: Bedside Glucose 117 mg/dL (70-110)
[2017-09-01] MEDS: 0.9% Normal Saline 1,000 ML 75 ML IV (17:56)
[2017-09-01 18:25] LABS: Bacteria 0 SEEN /hpf (None Seen); Mucous, Urine 0 SEEN /hpf (<or=2+); White Blood Cells 0 SEEN /hpf (0-5)
[2017-09-01 18:34] LABS: Color, Urine Straw (Yellow); Glucose, Dipstick Normal (Normal); Ketone-Dipstick Negative (Negative); Leukocyte Esterase-Dipstick Negative /ul (Negative); Nitrite-Dipstick Negative (Negative); Occult Blood-Urine 25 /ul (Negative); Protein-Dipstick 30 mg/dl (Negative); Specific Gravity, Urine 1.005 (1.002-1.030); Urine Bilirubin Dipstick Negative (Negative); Urine Clarity Clear (Clear); Urine Urobilinogen Normal (Normal)
[2017-09-01 19:04] LABS: Red Blood Cells-Urine 0-5 SEEN /hpf (0-5); Squamous Epithelial Cells - UA 0-5 SEEN /hpf (0-5)
[2017-09-01 22:11] LABS: Bedside Glucose 128 mg/dL (70-110)
[2017-09-02] VITALS (7 sets, daily range): BP systolic 139–177; BP diastolic 70–83; PULSE 42–90; RESP 12–18; TEMP 36.3–36.9; O2SAT 93–97
[2017-09-02 06:41] LABS: Bedside Glucose 128 mg/dL (70-110)
--- NOTE | 2017-09-02 07:32 | PN.ORTHO_ITS ---
Subjective: The patient was sitting in bed upon examination. Patient denies any chest pain , shortness of breath, dizziness, lightheadedness, nausea or vomiting, or calf pain. Pain is controlled on medications. No adverse overnight events. Plan is for placement of internal jugular port a cath which will be placed tomorrow by Dr Hernandez. Patient's is present on examination and is concerned with confusion patient has had postoperatively. Objective: Vital signs stable and afebrile. Patient is able to plantarflex and dorsiflex actively. Sensation is intact to light touch to saphenous, sural, superficial and deep peroneal, and tibial distribution. Dressing is clean dry and intact. Negative Homans bilaterally, negative signs and symptoms of DVT. - Physical Exam General: Alert, Oriented x3, Cooperative, No apparent distress Vital Signs Temp Pulse Resp BP Pulse Ox 98.1 F 68 18 139/70 H 97 09/02/17 05:52 09/02/17 05:52 09/02/17 05:52 09/02/17 05:52 09/02/17 05:52 Oxygen Flow Rate 2 Oxygen Delivery Method Room Air Weight: 93.4 kg Body Mass Index (BMI) 29.5 Finger Stick Blood Glucose 129 Intake and Output for Last 24 Hours 08/31/17 09/01/17 09/02/17 23:59 23:59 23:59 Intake Total 2186 / 2186 2621 / 2621 1508 / 1508 Output Total 1500 / 1500 1075 / 1075 1800 / 1800 Balance 686 / 686 1546 / 1546 -292 / -292 Microbiology Past 72 Hours 08/29/17 Unknown Gram Stain - Final Biopsy - Tissue Wound Culture - Final Enterococcus faecalis 08/29/17 Unknown Gram Stain - Final Biopsy - Tissue Wound Culture - Final Enterococcus faecalis 08/29/17 Unknown Gram Stain - Final Biopsy - Tissue Wound Culture - Final Enterococcus faecalis 08/28/17 08:35 Gram Stain - Final Fluid - Synovial (joint) Body Fluid Culture - Final Enterococcus faecalis Anaerobic Culture - Preliminary Checking for anaerobes, further studies to follow. 08/29/17 13:50 Blood Culture - Preliminary Blood Culture (Wb) - Anticubital Left No growth in 48 hours. 08/28/17 12:40 Blood Culture - Preliminary Blood Culture (Wb) - Anticubital Left No growth in 48 hours. Laboratory Tests Past 24 Hrs 08/31/17 09/01/17 09:50 18:20 Urine Color Straw Urine Clarity Clear Urine pH 6.0 Ur Specific [place] 1.005 Urine Protein 30 H Urine Glucose (UA) Normal Urine Ketones Negative Urine Occult Blood 25 H Urine Nitrite Negative Urine Bilirubin Negative Urine Urobilinogen Normal Ur Leukocyte Esterase Negative Urine RBC 0-5 SEEN Urine WBC 0 SEEN Ur Squamous Epith Cells 0-5 SEEN Urine Bacteria 0 SEEN Urine Mucus 0 SEEN Crossmatch See Detail POC Glucose 09/02/17 09/01/17 09/01/17 06:02 22:00 16:14 POC Glucose 128 H 128 H 117 H 09/01/17 11:14 POC Glucose 126 H Assessment/Plan 1. S/P irrigation debridement with synovectomy and polyethylene exchange POD #4 2. Continue Pain Medications: Currently on tramadol with limited dosing secondary to renal function. Pain appears to be well controlled at this time. 3. DVT Prophylaxis: Xarelto was discontinued and patient has been placed on Eliquis 4. PT/OT: Weightbearing as tolerated 5. H & H: Labs on September 01, 2017 were 7.5/23.1, asymptomatic. Defer to medicine for possible transfusion. 6. Encouraged Incentive Spirometry 7. Continue postoperative medical care by medicine 8. Infection: Infectious disease has been consulted. Plan is for 6 weeks IV antibiotics and will need to be monitored due to renal failure. PICC line will need to be placed. Antibiotics per infectious disease service. 9. Drainage: Clean dry and intact since placement of last dressing. 10. Disposition: Plan will be for discharge to transitional care unit at [facility] once patient has had internal jugular Port-A-Cath. Upon discharge, patient will need 2 week postoperative follow-up with [facility] with Dr. Bryant.
[2017-09-02] MEDS: 0.9% Normal Saline 1,000 ML 75 ML IV ×2 (08:01→22:28)
[2017-09-02] MEDS: Multivitamins,Therapeutic Tablet 1 TABLET PO (08:02)
[2017-09-02] MEDS: Ascorbic Acid 500 MG Tablet 1000 MG PO (08:02)
[2017-09-02] MEDS: Ferrous Sulfate 325 MG Tablet PO (08:02)
[2017-09-02] MEDS: Glucerna Shake 120 ML LIQUID PO ×2 (08:05→17:06)
--- NOTE | 2017-09-02 08:35 | PCM.PN.SRG ---
Subjective: Patient was confused overnight per patient's . - Physical Exam General: Alert, Cooperative, No apparent distress HEENT: Atraumatic Lungs: Normal air movement Cardiovascular: Regular rate, Regular Rhythm Abdomen: Soft, Non Tender, Non-Distended Vital Signs Temp Pulse Resp BP Pulse Ox 98.1 F 68 18 139/70 H 96 09/02/17 05:52 09/02/17 05:52 09/02/17 05:52 09/02/17 05:52 09/02/17 08:08 Oxygen Flow Rate 2 Oxygen Delivery Method Room Air Weight: 205 lb 14.588 oz Body Mass Index (BMI) 29.5 Finger Stick Blood Glucose 129 Intake and Output for Last 24 Hours 08/31/17 09/01/17 09/02/17 23:59 23:59 23:59 Intake Total 2186 / 2186 2621 / 2621 1508 / 1508 Output Total 1500 / 1500 1075 / 1075 1800 / 1800 Balance 686 / 686 1546 / 1546 -292 / -292 Microbiology Past 72 Hours 08/29/17 Unknown Gram Stain - Final Biopsy - Tissue Wound Culture - Final Enterococcus faecalis 08/29/17 Unknown Gram Stain - Final Biopsy - Tissue Wound Culture - Final Enterococcus faecalis 08/29/17 Unknown Gram Stain - Final Biopsy - Tissue Wound Culture - Final Enterococcus faecalis 08/28/17 08:35 Gram Stain - Final Fluid - Synovial (joint) Body Fluid Culture - Final Enterococcus faecalis Anaerobic Culture - Preliminary Checking for anaerobes, further studies to follow. 08/29/17 13:50 Blood Culture - Preliminary Blood Culture (Wb) - Anticubital Left No growth in 48 hours. 08/28/17 12:40 Blood Culture - Preliminary Blood Culture (Wb) - Anticubital Left No growth in 48 hours. Laboratory Tests Past 24 Hrs 08/31/17 09/01/17 09:50 18:20 Urine Color Straw Urine Clarity Clear Urine pH 6.0 Ur Specific [place] 1.005 Urine Protein 30 H Urine Glucose (UA) Normal Urine Ketones Negative Urine Occult Blood 25 H Urine Nitrite Negative Urine Bilirubin Negative Urine Urobilinogen Normal Ur Leukocyte Esterase Negative Urine RBC 0-5 SEEN Urine WBC 0 SEEN Ur Squamous Epith Cells 0-5 SEEN Urine Bacteria 0 SEEN Urine Mucus 0 SEEN Crossmatch See Detail POC Glucose 09/02/17 09/01/17 09/01/17 06:02 22:00 16:14 POC Glucose 128 H 128 H 117 H 09/01/17 11:14 POC Glucose 126 H Assessment/Plan 76-year-old male with need for vascular access device for long-term antibiotics. 1. I discussed port placement of the patient. Ideally a PICC line would suit him well for long-term antibiotics but they are trying to save his arm veins for possible dialysis access. We do not have any tunneled PICC lines here at this hospital so I will place a tunneled IJ port. 2. I discussed port placement with the patient yesterday. I discussed the risks and benefits of the procedure. I discussed the risks of bleeding, infection, pneumothorax, DVT, line infection. The patient understands the risks is willing to proceed with port placement tomorrow. 3. I have asked that the blood thinners be held and the patient be n.p.o. after midnight. He can resume blood thinners 24 hours after surgery. Andreas Hernandez MD Pager: [facility] [address], [address] [address] Office:
[2017-09-02 08:45] LABS: Absolute Lymphocyte Count 0.84 X10^3/ul (0.83-4.51); Absolute Neutrophil Count 5.6 X10^3/uL (2.0-7.7); Basophil# 0.03 X10^3/uL; Basophil% 0.4 % (0-1); Eosinophil# 0.31 X10^3/uL; Eosinophils% 4.3 % (0-5); Hematocrit 26.2 % (40-54); Hemoglobin 8.4 g/dl (13.0-16.5); Lymphocyte # 0.84 X10^3/ul (4.0); Lymphocyte % 11.5 % (19-41); Mean Corp Hgb Conc 32.1 g/gl (32-36); Mean Corpuscular Hgb 27.4 pg (27.0-32.0); Mean Corpuscular Volume 85.3 fL (80-94); Mean Platelet Vol. 8.8 fl (6.2-12.0); Monocyte# 0.48 X10^3/uL; Monocyte% 6.6 % (0-10); Neutrophil % 76.9 % (47-70); Platelet Count 162 K/mm3 (150-450); RBC Distribution Width CV 16.4 % (11.6-14.6); Red Blood Count 3.07 M/mm3 (4.6-6.2); White Blood Count 7.3 K/mm3 (4.4-11.0)
[2017-09-02 08:57] LABS: Anion Gap 11 (5-15); BUN 54 mg/dL (7-18); BUN/Creat Ratio 15.7 RATIO (10-20); Calcium,Total 8.4 mg/dL (8.5-10.1); Chloride 106 mmol/L (98-107); Creatinine, Serum 3.45 mg/dL (0.70-1.30); EST Glomerular Filtration Rate 19 mL/min (>60); Est Glom Filt Rate - Afr Amer 22 mL/min (>60); Estimated Creatinine Clearance 18.81 ml/min; Glucose 145 mg/dL (74-106); Potassium 4.2 mmol/L (3.5-5.1); Sodium Level 137 mmol/L (136-145)
[2017-09-02 09:01] LABS: POSITIVE COUNT NO; POSITIVE DIFFERENTIAL NO; POSITIVE MORPHOLOGY NO
--- NOTE | 2017-09-02 09:52 | US_ITS ---
STUDY: RENAL ULTRASOUND - COMPLETE REASON FOR EXAM: Male, 76 years old. Abnormal renal function test. Prior right nephrectomy. TECHNIQUE: Ultrasound evaluation of the kidneys was performed with real-time and static ziegler-scale imaging. COMPARISON: None. FINDINGS: RIGHT KIDNEY: Not visualized. Prior right nephrectomy. LEFT KIDNEY: Normal location of the left kidney, which is normal in size. The left kidney measures 11.5 cm x 4.8 times by 5.4 cm. There is a normal cortex of the left kidney. The renal cortex measures 1.4 cm. There is a 2.2 cm x 2 cm x 2.1 cm complex solid and cystic nodule in the lateral aspect of the midportion of the left kidney. Correlation with a CT scan is recommended for further evaluation. Several small nonobstructive intrarenal calculi. There is no left hydronephrosis. DISTAL LEFT URETER: There is non-visualization of the distal left ureter. There is no demonstrated left ureterovesical junction calculus. There is a visualized left ureteral jet. BLADDER: The distended urinary bladder has a volume of 268 ml. There is a normal wall thickness of the distended urinary bladder. There is no demonstrated mass within the urinary bladder. There are no demonstrated bladder calculi. The prostate is enlarged. The prostatic volume is 61 cc. US/Kidney and Bladder IMPRESSION: Status post right nephrectomy. There is a new 2.2 cm x 2 signed by 2.1 sono complex solid and cystic nodule in the lateral aspect of the midportion of the left kidney. Correlation with a CT scan is recommended. Electronically Signed: Marquis Luna MD at 12:37 EST Tel [phone], Service support ,
--- NOTE | 2017-09-02 09:56 | PCM.PN.HOSP ---
Subjective: Patient overnight with mild agitation per report otherwise no acute events per self and per nursing report. Upon discussion is alert and oriented and appears appropriate. Noted that in the evening he was agitated and it was difficult to discuss with him, often cut her off which is not his baseline. He is afebrile with stable vital signs overnight. This morning discussed renal function changes with pending additional labs, renal ultrasound, renal consultation to which family and patient are amenable. Plan is still for placement of port in a.m. Patient denies fevers, chills, nausea, emesis, abdominal pain, chest pain or dyspnea. Objective: Physical Examination: General: awake, alert, oriented x 3 despite noted agitation overnight, currently conversive appropriate and cooperative, seated upright in bed, in no apparent distress. Skin: normal color, turgor, no icterus, cyanosis except bilateral upper extremity ecchymoses, right knee with dressing and SAKINA wrap in place, no drainage noted. HEENT: AT/NC, EOMI, PERRLA, MMM. Lungs: CTA bilaterally, moderate effort, mild decrease BL bases, no rales, ronchi or wheezing. Heart: Regular rate and rhythm; no gallop, rub audible, s/p AVR. Abdomen: soft, overweight, NTTP, ND, normal BS. Extremities: no cyanosis, clubbing, s/p OR R knee dressing, ACEI in place, no drainage, distal pulses intact. Neurological: patient awake, alert, oriented x 3; cognitive function intact; pupils equally reactive to light and accomodation; cranial nerves II-XII grossly normal, moving all 4 extremities except expected limitation LLE, strength accordingly moderately globally decreased, improving. Psychiatric: affect appears normal, was noted to be agitated overnight, no acute evidence of depressive or anxiety feelings. Vitals/I&O's: Vital Signs Temp Pulse Resp BP Pulse Ox 98.1 F 68 18 139/70 H 96 09/02/17 05:52 09/02/17 05:52 09/02/17 05:52 09/02/17 05:52 09/02/17 08:08 Oxygen Flow Rate 2 Oxygen Delivery Method Room Air Weight: 205 lb 14.588 oz Body Mass Index (BMI) 29.5 Finger Stick Blood Glucose 129 Intake and Output for Last 24 Hours 08/31/17 09/01/17 09/02/17 23:59 23:59 23:59 Intake Total 2186 / 2186 2621 / 2621 1508 / 1508 Output Total 1500 / 1500 1075 / 1075 1800 / 1800 Balance 686 / 686 1546 / 1546 -292 / -292 Microbiology Past 72 Hours 08/29/17 Unknown Biopsy - Tissue Gram Stain - Final 08/29/17 Unknown Biopsy - Tissue Wound Culture - Final Enterococcus faecalis 08/29/17 Unknown Biopsy - Tissue Anaerobic Culture - Final No anaerobic bacteria isolated. 08/29/17 Unknown Biopsy - Tissue Gram Stain - Final 08/29/17 Unknown Biopsy - Tissue Wound Culture - Final Enterococcus faecalis 08/29/17 Unknown Biopsy - Tissue Anaerobic Culture - Final No anaerobic bacteria isolated. 08/29/17 Unknown Biopsy - Tissue Gram Stain - Final 08/29/17 Unknown Biopsy - Tissue Wound Culture - Final Enterococcus faecalis 08/29/17 Unknown Biopsy - Tissue Anaerobic Culture - Final No anaerobic bacteria isolated. 08/28/17 08:35 Fluid - Synovial (joint) Gram Stain - Final 08/28/17 08:35 Fluid - Synovial (joint) Body Fluid Culture - Final Enterococcus faecalis 08/28/17 08:35 Fluid - Synovial (joint) Anaerobic Culture - Final No anaerobic bacteria isolated. 08/29/17 13:50 Blood Culture (Wb) - Anticubital Left Blood Culture - Preliminary No growth in 48 hours. 08/28/17 12:40 Blood Culture (Wb) - Anticubital Left Blood Culture - Preliminary No growth in 48 hours. Laboratory Results 08/31/17 09:50: Crossmatch See Detail 09/01/17 11:14: POC Glucose 126 H 09/01/17 16:14: POC Glucose 117 H 09/01/17 18:20: Urine Color Straw, Urine Clarity Clear, Urine pH 6.0, Ur Specific [place] 1.005, Urine Protein 30 H, Urine Glucose (UA) Normal, Urine Ketones Negative, Urine Occult Blood 25 H, Urine Nitrite Negative, Urine Bilirubin Negative, Urine Urobilinogen Normal, Ur Leukocyte Esterase Negative, Urine RBC 0-5 SEEN, Urine WBC 0 SEEN, Ur Squamous Epith Cells 0-5 SEEN, Urine Bacteria 0 SEEN, Urine Mucus 0 SEEN 09/01/17 22:00: POC Glucose 128 H 09/02/17 06:02: POC Glucose 128 H 09/02/17 08:38: WBC 7.3, RBC 3.07 L, Hgb 8.4 L, Hct 26.2 L, MCV 85.3, MCH 27.4, MCHC 32.1, RDW 16.4 H, RDW Differential 51.0 H, Plt Count 162, MPV 8.8, Immature Gran % (Auto) 0.300, Neut % (Auto) 76.9 H, Lymph % (Auto) 11.5 L, [place] % (Auto) 6.6, Eos % (Auto) 4.3, Baso % (Auto) 0.4, Absolute Neuts (auto) 5.6, Absolute Lymphs (auto) 0.84, Total Counted Not Reportable 09/02/17 08:38: Sodium 137, Potassium 4.2, Chloride 106, Carbon Dioxide 20.0 L, Anion Gap 11, BUN 54 H, Creatinine 3.45 H, Estim Creat Clear Calc 18.81, Est GFR (MDRD) Af Amer 22 L, Est GFR (MDRD) Non-Af 19 L, BUN/Creatinine Ratio 15.7, Glucose 145 H, Calcium 8.4 L Current Medications Acetaminophen (Tylenol) 650 mg PO Q4H PRN PRN PRN Reason: FEVER Acetaminophen (Tylenol) 650 mg PO Q6H PRN PRN PRN Reason: PAIN Apixaban (Eliquis) 2.5 mg PO BID [facility] Last Admin: 09/01/17 09:41 Dose: 2.5 mg Ascorbic Acid (Vitamin C) 1,000 mg PO DAILY@0800 [facility] Last Admin: 09/02/17 08:02 Dose: 1,000 mg Bisacodyl (Dulcolax) 5 mg PO DAILY PRN PRN PRN Reason: Constipation Cholecalciferol (Vitamin D) 2,000 unit PO DAILY [facility] Last Admin: 09/01/17 08:38 Dose: 2,000 unit Dextrose (D50w Syringe) 0 gm IV X1 PRN; Protocol PRN Reason: Hypoglycemia Diltiazem HCl (Cardizem Cd) 180 mg PO BID [facility] Last Admin: 09/01/17 22:02 Dose: 180 mg Docusate Sodium (Colace) 100 mg PO DAILY [facility] Last Admin: 09/01/17 08:39 Dose: 100 mg Famotidine (Pepcid) 20 mg PO DAILY [facility] Last Admin: 09/01/17 08:38 Dose: 20 mg [facility]ous Sulf[facility] Last Admin: 09/02/17 08:02 Dose: 325 mg Glucagon () 1 mg IM .X1 PRN PRN Reason: Hypoglycemia Hydromorphone HCl (Dilaudid) 1 mg IV Q4H PRN PRN PRN Reason: SEVERE PAIN (6-10/10) Last Admin: 08/30/17 18:26 Dose: 1 mg Ampicillin Sodium 2 gm/ Sodium (Chloride) 100 mls @ 150 mls/hr IV Q12 [facility] Last Admin: 09/01/17 22:07 Dose: 150 mls/hr Sodium Chloride () 1,000 mls @ 75 mls/hr IV .[id number] [facility] Last Admin: 09/02/17 08:01 Dose: 75 mls/hr Insulin Aspart (Novolog Flexpen (Bkc)) 0 units SC ACHS [facility] PRN Reason: Protocol Last Admin: 09/02/17 06:04 Dose: Not Given Labetalol HCl (Trandate) 100 mg PO BID [facility] Last Admin: 09/01/17 22:02 Dose: 100 mg Magnesium Hydroxide (Milk Of Magnesia) 30 ml PO DAILY PRN PRN PRN Reason: Constipation Morphine Sulfate (Morphine) 2 - 4 mg IV Q2H PRN PRN PRN Reason: SEVERE PAIN (6-10/10) Last Admin: 08/29/17 17:29 Dose: 4 mg [facility]ivitamins ([facility]amin) [facility] Last Admin: 09/02/17 08:02 Dose: 1 tablet Nutritional Formula (Lactose Free) (Glucerna Shake) 120 ml PO TIDCM [facility] Last Admin: 09/02/17 08:05 Dose: 120 ml Ondansetron HCl (Zofran) 4 mg IV Q8H PRN PRN PRN Reason: NAUSEA Promethazine HCl (Phenergan (Ll)) 12.5 mg IM Q6H PRN PRN; Protocol PRN Reason: NAUSEA/VOMITING Senna/Docusate Sodium (Senokot-S, Lesia-Colace) 2 tablet PO BID [facility] Last Admin: 09/01/17 22:03 Dose: Not Given Sodium Chloride () 5 - 30 ml IV UD PRN PRN Reason: SALINE FLUSH Last Admin: 02/25/18 18:26 Dose: 10 ml Tramadol HCl (Ultram (G)) 50 - 100 mg PO Q12H PRN PRN Reason: MOD-SEVERE PAIN (4-1010) Last Admin: 08/31/17 11:37 Dose: 50 mg Assessment/Plan The patient is a 76 y/o M w/ PMHx: CAD s/p CABG x 3, Valvular Heart Disease w Aortic Sclerosis, HTN, HLD, CKD stage IV w/ Solitary Kidney, AOCD/Fe deficiency anemia, Diabetes mellitus type II, Overweight who presents to the [facility] ED on 08/31/17 with recent history of enterococcal bacteremia of unclear etiology initially with now onset L knee pain, swelling with ED evaluation, aspiration performed w/ Cx obtained resulted + E. Faecalis. (1) Left knee periprosthetic infection w/ E. fecalis Septic Arthritis w/ E. Fecalis Bacteremia: Recent admission prior w/ + cultures, TIM performed which was unremarkable, completed 2 wk course ampicillin per ID recommendation, returned w/ L Knee pain, edema w/ ED aspiration w/ + Cx w/ E. fecalis. 08/29/[address] Bryant w/ I+D, complete synovectomy left knee, L knee polyethylene exchange 1 component revision w/ noted overt gross purulence in the OR, pending finalization from OR cultures, currently noting GP organism, GPC. Maintained currently on ampicillin per ID discretion, prior was on Vanc and Zosyn pending cultures. Bld Cx repeat currently negative. Repeat TIM 09/01/17 unremarkable. Planned Port placement 09/03/17 per discussion with Surgery, ID. PT, OT, CM for discharge planning with plan for TCU placement following allowance for port placement, possible Thursday if improved, may need to wait further given renal function changes and mild mental status changes noted per family. (2) Valvular Heart Disease: History of aortic valve stenosis status post aortic valve replacement with bioprosthetic material, TIM during recent admission stable appearing, no valvular vegetations noted. Noted splinter hemorrhage on his L 2nd toe per ID otherwise no signs endocarditis. Repeat Bld Cx now negative, discussed with ID and repeat TIM unremarkable thus no need for dual therapies. (3) VINOD on CKD stage IV w/ Solitary kidney w/ Hx renal cell carcinoma: Patient status post nephrectomy, admission BUN/Cr 58/3.39, 08/31/17 BUN/Cr 48/3.02, baseline appears 2.9, recent vanc regimen, transitioned to amp per ID. Deferred PICC given possible needs for future HD, planned port placement per Dr. Hernandez once assure Bld Cx without growth and TIM repeat unremarkable. Plan 09/03/17 port placement. 09/02/17 BUN/Cr 54/3.45, continued function trending upward and mild confusion noted per family. Given this, consult requested to Dr. Pollock, pending. 09/01/17 UA not marked appearing. Additionally, requested FeNa, Urine eos pending per ID and Renal US ordered, pending. (4) Encephalopathy, Agitation: Unclear etiology, possible secondary to #1, #3 versus abx with possible underlying chronic component. 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 Will continue treatment and evaluation as noted above. (5) Diabetes mellitus type II w/ Neuropathy: Held oral home regimen given renal fx changes, ADA diet until NPO status for 09/03/17 port placement, accu checks w/ ISS. (6) Acute on Chronic AOCD/Fe deficiency anemia: Admission Hgb 9.3, maintain on home Fe supplementation, trending CBC. 08/31/17 Hgb 7.5, given cardiac history transfusion 1 u PRBC w/ goal >/= 8 performed, 09/01/17 repeat Hgb 7.5, no change, given additional 1 u PRBC, 09/02/17 Hgb 8.4. (7) CAD: s/p CABG, maintain on home regimen BB, not on statin secondary to allergy, ASA no listed outpatient from prior, ? thrombocytopenia history, changed xarelto to eliquis given renal fx. (8) Hypertension: Continue home regimen including labetaolol, Cardizem, PRN hydralazine. (9) Hyperlipidemia: Statin allergy. (10) DVT Prophylaxis: SCDs, xarelto d/c given renal function, changed to eliquis which is currently held for OR 09/03/17 AM. Code Visit Inpatient E&M: 14630 Subs Hosp L3
--- NOTE | 2017-09-02 10:00 | PN_ITS ---
Subjective: Patient overnight with mild agitation per report otherwise no acute events per self and per nursing report. Upon discussion is alert and oriented and appears appropriate. Noted that in the evening he was agitated and it was difficult to discuss with him, often cut her off which is not his baseline. He is afebrile with stable vital signs overnight. This morning discussed renal function changes with pending additional labs, renal ultrasound, renal consultation to which family and patient are amenable. Plan is still for placement of port in a.m. Patient denies fevers, chills, nausea, emesis, abdominal pain, chest pain or dyspnea. Objective: Physical Examination: General: awake, alert, oriented x 3 despite noted agitation overnight, currently conversive appropriate and cooperative, seated upright in bed, in no apparent distress. Skin: normal color, turgor, no icterus, cyanosis except bilateral upper extremity ecchymoses, right knee with dressing and SAKINA wrap in place, no drainage noted. HEENT: AT/NC, EOMI, PERRLA, MMM. Lungs: CTA bilaterally, moderate effort, mild decrease BL bases, no rales, ronchi or wheezing. Heart: Regular rate and rhythm; no gallop, rub audible, s/p AVR. Abdomen: soft, overweight, NTTP, ND, normal BS. Extremities: no cyanosis, clubbing, s/p OR R knee dressing, ACEI in place, no drainage, distal pulses intact. Neurological: patient awake, alert, oriented x 3; cognitive function intact; pupils equally reactive to light and accomodation; cranial nerves II-XII grossly normal, moving all 4 extremities except expected limitation LLE, strength accordingly moderately globally decreased, improving. Psychiatric: affect appears normal, was noted to be agitated overnight, no acute evidence of depressive or anxiety feelings. Vitals/I&O's: Vital Signs Temp Pulse Resp BP Pulse Ox 98.1 F 68 18 139/70 H 96 09/02/17 05:52 09/02/17 05:52 09/02/17 05:52 09/02/17 05:52 09/02/17 08:08 Oxygen Flow Rate 2 Oxygen Delivery Method Room Air Weight: 205 lb 14.588 oz Body Mass Index (BMI) 29.5 Finger Stick Blood Glucose 129 Intake and Output for Last 24 Hours 08/31/17 09/01/17 09/02/17 23:59 23:59 23:59 Intake Total 2186 / 2186 2621 / 2621 1508 / 1508 Output Total 1500 / 1500 1075 / 1075 1800 / 1800 Balance 686 / 686 1546 / 1546 -292 / -292 Microbiology Past 72 Hours 08/29/17 Unknown Biopsy - Tissue Gram Stain - Final 08/29/17 Unknown Biopsy - Tissue Wound Culture - Final Enterococcus faecalis 08/29/17 Unknown Biopsy - Tissue Anaerobic Culture - Final No anaerobic bacteria isolated. 08/29/17 Unknown Biopsy - Tissue Gram Stain - Final 08/29/17 Unknown Biopsy - Tissue Wound Culture - Final Enterococcus faecalis 08/29/17 Unknown Biopsy - Tissue Anaerobic Culture - Final No anaerobic bacteria isolated. 08/29/17 Unknown Biopsy - Tissue Gram Stain - Final 08/29/17 Unknown Biopsy - Tissue Wound Culture - Final Enterococcus faecalis 08/29/17 Unknown Biopsy - Tissue Anaerobic Culture - Final No anaerobic bacteria isolated. 08/28/17 08:35 Fluid - Synovial (joint) Gram Stain - Final 08/28/17 08:35 Fluid - Synovial (joint) Body Fluid Culture - Final Enterococcus faecalis 08/28/17 08:35 Fluid - Synovial (joint) Anaerobic Culture - Final No anaerobic bacteria isolated. 08/29/17 13:50 Blood Culture (Wb) - Anticubital Left Blood Culture - Preliminary No growth in 48 hours. 08/28/17 12:40 Blood Culture (Wb) - Anticubital Left Blood Culture - Preliminary No growth in 48 hours. Laboratory Results 08/31/17 09:50: Crossmatch See Detail 09/01/17 11:14: POC Glucose 126 H 09/01/17 16:14: POC Glucose 117 H 09/01/17 18:20: Urine Color Straw, Urine Clarity Clear, Urine pH 6.0, Ur Specific [place] 1.005, Urine Protein 30 H, Urine Glucose (UA) Normal, Urine Ketones Negative, Urine Occult Blood 25 H, Urine Nitrite Negative, Urine Bilirubin Negative, Urine Urobilinogen Normal, Ur Leukocyte Esterase Negative, Urine RBC 0-5 SEEN, Urine WBC 0 SEEN, Ur Squamous Epith Cells 0-5 SEEN, Urine Bacteria 0 SEEN, Urine Mucus 0 SEEN 09/01/17 22:00: POC Glucose 128 H 09/02/17 06:02: POC Glucose 128 H 09/02/17 08:38: WBC 7.3, RBC 3.07 L, Hgb 8.4 L, Hct 26.2 L, MCV 85.3, MCH 27.4, MCHC 32.1, RDW 16.4 H, RDW Differential 51.0 H, Plt Count 162, MPV 8.8, Immature Gran % (Auto) 0.300, Neut % (Auto) 76.9 H, Lymph % (Auto) 11.5 L, [place] % (Auto) 6.6, Eos % (Auto) 4.3, Baso % (Auto) 0.4, Absolute Neuts (auto) 5.6, Absolute Lymphs (auto) 0.84, Total Counted Not Reportable 09/02/17 08:38: Sodium 137, Potassium 4.2, Chloride 106, Carbon Dioxide 20.0 L, Anion Gap 11, BUN 54 H, Creatinine 3.45 H, Estim Creat Clear Calc 18.81, Est GFR (MDRD) Af Amer 22 L, Est GFR (MDRD) Non-Af 19 L, BUN/Creatinine Ratio 15.7, Glucose 145 H, Calcium 8.4 L Current Medications Acetaminophen (Tylenol) 650 mg PO Q4H PRN PRN PRN Reason: FEVER Acetaminophen (Tylenol) 650 mg PO Q6H PRN PRN PRN Reason: PAIN Apixaban (Eliquis) 2.5 mg PO BID COUNTS INCLUDE 234 BEDS AT THE [facility] Last Admin: 09/01/17 09:41 Dose: 2.5 mg Ascorbic Acid (Vitamin C) 1,000 mg PO DAILY@0800 COUNTS INCLUDE 234 BEDS AT THE [facility] Last Admin: 09/02/17 08:02 Dose: 1,000 mg Bisacodyl (Dulcolax) 5 mg PO DAILY PRN PRN PRN Reason: Constipation Cholecalciferol (Vitamin D) 2,000 unit PO DAILY COUNTS INCLUDE 234 BEDS AT THE [facility] Last Admin: 09/01/17 08:38 Dose: 2,000 unit Dextrose (D50w Syringe) 0 gm IV X1 PRN; Protocol PRN Reason: Hypoglycemia Diltiazem HCl (Cardizem Cd) 180 mg PO BID COUNTS INCLUDE 234 BEDS AT THE [facility] Last Admin: 09/01/17 22:02 Dose: 180 mg Docusate Sodium (Colace) 100 mg PO DAILY COUNTS INCLUDE 234 BEDS AT THE [facility] Last Admin: 09/01/17 08:39 Dose: 100 mg Famotidine (Pepcid) 20 mg PO DAILY COUNTS INCLUDE 234 BEDS AT [facility] Last Admin: 09/01/17 08:38 Dose: 20 mg [facility]ous S[facility]) [facility] Admin: 09/02/17 08:02 Dose: 325 mg Glucagon () 1 mg IM .X1 PRN PRN Reason: Hypoglycemia Hydromorphone HCl (Dilaudid) 1 mg IV Q4H PRN PRN PRN Reason: SEVERE PAIN (6-10/10) Last Admin: 08/30/17 18:26 Dose: 1 mg Ampicillin Sodium 2 gm/ Sodium (Chloride) 100 mls @ 150 mls/hr IV Q12 COUNTS INCLUDE 234 BEDS AT THE [facility] Last Admin: 09/01/17 22:07 Dose: 150 mls/hr Sodium Chloride () 1,000 mls @ 75 mls/hr IV .[id number] COUNTS INCLUDE 234 BEDS AT THE [facility] Last Admin: 09/02/17 08:01 Dose: 75 mls/hr Insulin Aspart (Novolog Flexpen (Bkc)) 0 units SC ACHS COUNTS INCLUDE 234 BEDS AT THE [facility] PRN Reason: Protocol Last Admin: 09/02/17 06:04 Dose: Not Given Labetalol HCl (Trandate) 100 mg PO BID COUNTS [facility]CLUDE 234 BEDS AT [facility] Last Admin: 09/01/17 22:02 Dose: 100 mg Magnesium Hydroxide (Milk Of Magnesia) 30 ml PO DAILY PRN PRN PRN Reason: Constipation Morphine Sulfate (Morphine) 2 - 4 mg IV Q2H PRN PRN PRN Reason: SEVERE PAIN (6-10/10) Last Admin: 08/29/17 17:29 Dose: 4 mg [facility]it[facility] ([facility]) [facility] Last Admin: 09/02/17 08:02 Dose: 1 tablet Nutritional Formula (Lactose Free) (Glucerna Shake) 120 ml PO TIDCM COUNTS INCLUDE 234 BEDS AT THE [facility] Last Admin: 09/02/17 08:05 Dose: 120 ml Ondansetron HCl (Zofran) 4 mg IV Q8H PRN PRN PRN Reason: NAUSEA Promethazine HCl (Phenergan (Ll)) 12.5 mg IM Q6H PRN PRN; Protocol PRN Reason: NAUSEA/VOMITING Senna/Docusate Sodium (Senokot-S, Lesia-Colace) 2 tablet PO BID COUNTS INCLUDE 234 BEDS AT THE [facility] Last Admin: 09/01/17 22:03 Dose: Not Given Sodium Chloride () 5 - 30 ml IV UD PRN PRN Reason: SALINE FLUSH Last Admin: 02/25/18 18:26 Dose: 10 ml Tramadol HCl (Ultram (G)) 50 - 100 mg PO Q12H PRN PRN Reason: MOD-SEVERE PAIN (4-1010) Last Admin: 08/31/17 11:37 Dose: 50 mg Assessment/Plan The patient is a 76 y/o M w/ PMHx: CAD s/p CABG x 3, Valvular Heart Disease w Aortic Sclerosis, HTN, HLD, CKD stage IV w/ Solitary Kidney, AOCD/Fe deficiency anemia, Diabetes mellitus type II, Overweight who presents to the [facility] ED on 08/31 with recent history of enterococcal bacteremia of unclear etiology initially with now onset L knee pain, swelling with ED evaluation, aspiration performed w/ Cx obtained resulted + E. Faecalis. (1) Left knee periprosthetic infection w/ E. fecalis Septic Arthritis w/ E. Fecalis Bacteremia: Recent admission prior w/ + cultures, TIM performed which was unremarkable, completed 2 wk course ampicillin per ID recommendation, returned w/ L Knee pain, edema w/ ED aspiration w/ + Cx w/ E. fecalis. 08/29/[address] Bryant w/ I+D, complete synovectomy left knee, L knee polyethylene exchange 1 component revision w/ noted overt gross purulence in the OR, pending finalization from OR cultures, currently noting GP organism, GPC. Maintained currently on ampicillin per ID discretion, prior was on Vanc and Zosyn pending cultures. Bld Cx repeat currently negative. Repeat TIM 09/01/17 unremarkable. Planned Port placement 09/03/17 per discussion with Surgery, ID. PT, OT, CM for discharge planning with plan for TCU placement following allowance for port placement, possible Thursday if improved, may need to wait further given renal function changes and mild mental status changes noted per family. (2) Valvular Heart Disease: History of aortic valve stenosis status post aortic valve replacement with bioprosthetic material, TIM during recent admission stable appearing, no valvular vegetations noted. Noted splinter hemorrhage on his L 2nd toe per ID otherwise no signs endocarditis. Repeat Bld Cx now negative , discussed with ID and repeat TIM unremarkable thus no need for dual therapies. (3) VINOD on CKD stage IV w/ Solitary kidney w/ Hx renal cell carcinoma: Patient status post nephrectomy, admission BUN/Cr 58/3.39, 08/31/17 BUN/Cr 48/3.02, baseline appears 2.9, recent vanc regimen, transitioned to amp per ID. Deferred PICC given possible needs for future HD, planned port placement per Dr. Hernandez once assure Bld Cx without growth and TIM repeat unremarkable. Plan port placement. 09/02/17 BUN/Cr 54/3.45, continued function trending upward and mild confusion noted per family. Given this, consult requested to Dr. Pollock, pending. 09/01/17 UA not marked appearing. Additionally, requested FeNa , Urine eos pending per ID and Renal US ordered, pending. (4) Encephalopathy, Agitation: Unclear etiology, possible secondary to #1, #3 versus abx with possible underlying chronic component. 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 Will continue treatment and evaluation as noted above. (5) Diabetes mellitus type II w/ Neuropathy: Held oral home regimen given renal fx changes, ADA diet until NPO status for 09/03/17 port placement, accu checks w/ ISS. (6) Acute on Chronic AOCD/Fe deficiency anemia: Admission Hgb 9.3, maintain on home Fe supplementation, trending CBC. 08/31/17 Hgb 7.5, given cardiac history transfusion 1 u PRBC w/ goal >/= 8 performed, 09/01/17 repeat Hgb 7.5, no change , given additional 1 u PRBC, 09/02/17 Hgb 8.4. (7) CAD: s/p CABG, maintain on home regimen BB, not on statin secondary to allergy, ASA no listed outpatient from prior, ? thrombocytopenia history, changed xarelto to eliquis given renal fx. (8) Hypertension: Continue home regimen including labetaolol, Cardizem, PRN hydralazine. (9) Hyperlipidemia: Statin allergy. (10) DVT Prophylaxis: SCDs, xarelto d/c given renal function, changed to eliquis which is currently held for OR 09/03/17 AM. Code Visit Inpatient E&M: 38783 Subs Hosp L3
[2017-09-02 10:51] LABS: Urine Sodium 48 mmol/L (Not Establ.)
[2017-09-02] MEDS: Docusate Sodium 100 MG Capsule PO (10:52)
[2017-09-02] MEDS: dilTIAZem CD 180 MG Capsule PO ×2 (10:52→22:31)
[2017-09-02] MEDS: Senna/Docusate Sodium 1 Tablet 2 TABLET PO ×2 (10:53→22:30)
[2017-09-02] MEDS: Famotidine 20 MG Tablet PO (10:53)
[2017-09-02] MEDS: Labetalol 100 MG Tablet PO ×2 (10:53→22:30)
[2017-09-02] MEDS: 0.9% NaCl Peripheral Flush Adult/Peds IV ×2 (10:55→12:07)
--- NOTE | 2017-09-02 11:10 | PCM.PN.ID ---
Subjective: Tolerated TIM well. concerned that he is more confused since coming to hospital. No fever. - Physical Exam General: Alert, Cooperative, No apparent distress Lungs: Clear to auscultation, Normal air movement Cardiovascular: Regular rate, Regular Rhythm, Murmur Abdomen: Soft, Non Tender, Non-Distended Extremities: - - L knee wrapped Skin: No rashes Vital Signs Temp Pulse Resp BP Pulse Ox 97.7 F L 42 L 12 164/79 H 93 09/02/17 10:19 09/02/17 10:19 09/02/17 10:19 09/02/17 10:19 09/02/17 10:19 Oxygen Flow Rate 2 Oxygen Delivery Method Room Air Weight: 93.4 kg Body Mass Index (BMI) 29.5 Finger Stick Blood Glucose 129 Intake and Output for Last 24 Hours 08/31/17 09/01/17 09/02/17 23:59 23:59 23:59 Intake Total 2186 / 2186 2621 / 2621 1508 / 1508 Output Total 1500 / 1500 1075 / 1075 1800 / 1800 Balance 686 / 686 1546 / 1546 -292 / -292 Microbiology Past 72 Hours 08/29/17 Unknown Gram Stain - Final Biopsy - Tissue Wound Culture - Final Enterococcus faecalis Anaerobic Culture - Final No anaerobic bacteria isolated. 08/29/17 Unknown Gram Stain - Final Biopsy - Tissue Wound Culture - Final Enterococcus faecalis Anaerobic Culture - Final No anaerobic bacteria isolated. 08/29/17 Unknown Gram Stain - Final Biopsy - Tissue Wound Culture - Final Enterococcus faecalis Anaerobic Culture - Final No anaerobic bacteria isolated. 08/28/17 08:35 Gram Stain - Final Fluid - Synovial (joint) Body Fluid Culture - Final Enterococcus faecalis Anaerobic Culture - Final No anaerobic bacteria isolated. 08/29/17 13:50 Blood Culture - Preliminary Blood Culture (Wb) - Anticubital Left No growth in 48 hours. 08/28/17 12:40 Blood Culture - Preliminary Blood Culture (Wb) - Anticubital Left No growth in 48 hours. Laboratory Tests Past 24 Hrs 08/31/17 09/01/17 09/02/17 09:50 18:20 08:38 WBC 7.3 RBC 3.07 L Hgb 8.4 L Hct 26.2 L MCV 85.3 MCH 27.4 MCHC 32.1 RDW 16.4 H RDW Differential 51.0 H Plt Count 162 MPV 8.8 Immature Gran % (Auto) 0.300 Neut % (Auto) 76.9 H Lymph % (Auto) 11.5 L [place] % (Auto) 6.6 Eos % (Auto) 4.3 Baso % (Auto) 0.4 Absolute Neuts (auto) 5.6 Absolute Lymphs (auto) 0.84 Total Counted Not Reportable Eos Smear Total Cells Sodium Potassium Chloride Carbon Dioxide Anion Gap BUN Creatinine Estim Creat Clear Calc Est GFR (MDRD) Af Amer Est GFR (MDRD) Non-Af BUN/Creatinine Ratio Glucose Calcium Urine Color Straw Urine Clarity Clear Urine pH 6.0 Ur Specific [place] 1.005 Urine Protein 30 H Urine Glucose (UA) Normal Urine Ketones Negative Urine Occult Blood 25 H Urine Nitrite Negative Urine Bilirubin Negative Urine Urobilinogen Normal Ur Leukocyte Esterase Negative Urine RBC 0-5 SEEN Urine WBC 0 SEEN Ur Squamous Epith Cells 0-5 SEEN Urine Bacteria 0 SEEN Urine Mucus 0 SEEN Ur Random Sodium Urine Creatinine Crossmatch See Detail 09/02/17 09/02/17 09/02/17 08:38 10:15 10:15 WBC RBC Hgb Hct MCV MCH MCHC RDW RDW Differential Plt Count MPV Immature Gran % (Auto) Neut % (Auto) Lymph % (Auto) [place] % (Auto) Eos % (Auto) Baso % (Auto) Absolute Neuts (auto) Absolute Lymphs (auto) Total Counted Eos Smear Total Cells Pending Sodium 137 Potassium 4.2 Chloride 106 Carbon Dioxide 20.0 L Anion Gap 11 BUN 54 H Creatinine 3.45 H Estim Creat Clear Calc 18.81 Est GFR (MDRD) Af Amer 22 L Est GFR (MDRD) Non-Af 19 L BUN/Creatinine Ratio 15.7 Glucose 145 H Calcium 8.4 L Urine Color Urine Clarity Urine pH Ur Specific [place] Urine Protein Urine Glucose (UA) Urine Ketones Urine Occult Blood Urine Nitrite Urine Bilirubin Urine Urobilinogen Ur Leukocyte Esterase Urine RBC Urine WBC Ur Squamous Epith Cells Urine Bacteria Urine Mucus Ur Random Sodium Urine Creatinine 28.00 Crossmatch 09/02/17 10:15 WBC RBC Hgb Hct MCV MCH MCHC RDW RDW Differential Plt Count MPV Immature Gran % (Auto) Neut % (Auto) Lymph % (Auto) [place] % (Auto) Eos % (Auto) Baso % (Auto) Absolute Neuts (auto) Absolute Lymphs (auto) Total Counted Eos Smear Total Cells Sodium Potassium Chloride Carbon Dioxide Anion Gap BUN Creatinine Estim Creat Clear Calc Est GFR (MDRD) Af Amer Est GFR (MDRD) Non-Af BUN/Creatinine Ratio Glucose Calcium Urine Color Urine Clarity Urine pH Ur Specific [place] Urine Protein Urine Glucose (UA) Urine Ketones Urine Occult Blood Urine Nitrite Urine Bilirubin Urine Urobilinogen Ur Leukocyte Esterase Urine RBC Urine WBC Ur Squamous Epith Cells Urine Bacteria Urine Mucus Ur Random Sodium 48 Urine Creatinine Crossmatch POC Glucose 09/02/17 09/01/17 09/01/17 06:02 22:00 16:14 POC Glucose 128 H 128 H 117 H 09/01/17 11:14 POC Glucose 126 H Route of nutrition/ use of supplements: [] Nutritional Intake: [] IV Site: [] Irving Catheter: [] - Assessment/Plan Antibiotics: [] Assessment/Plan: [] Active and Suspected Problems Septic arthritis (Acute) Bacteremia due to Enterococcus (Acute) 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 Has h/o CKD and bioprosthetic AVR - repeat bcx neg since 08/29. Taken to OR 08/[address] Bryant for debridement with poly exchange. Has splinter hemorrhage on L 2nd toe, no other signs of endocarditis. 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 TIM with no veg seen. Continue ampicillin. Plan on 6-8 weeks IV abx. VINOD on CKD - neph to be consulted. requesting UA/Ucx due to confusion. Will also order urine eos. D/w Dr. Bang, will follow.
--- NOTE | 2017-09-02 11:16 | PN.ID_ITS ---
Subjective: Tolerated TIM well. concerned that he is more confused since coming to hospital. No fever. - Physical Exam General: Alert, Cooperative, No apparent distress Lungs: Clear to auscultation, Normal air movement Cardiovascular: Regular rate, Regular Rhythm, Murmur Abdomen: Soft, Non Tender, Non-Distended Extremities: - - L knee wrapped Skin: No rashes Vital Signs Temp Pulse Resp BP Pulse Ox 97.7 F L 42 L 12 164/79 H 93 09/02/17 10:19 09/02/17 10:19 09/02/17 10:19 09/02/17 10:19 09/02/17 10:19 Oxygen Flow Rate 2 Oxygen Delivery Method Room Air Weight: 93.4 kg Body Mass Index (BMI) 29.5 Finger Stick Blood Glucose 129 Intake and Output for Last 24 Hours 08/31/17 09/01/17 09/02/17 23:59 23:59 23:59 Intake Total 2186 / 2186 2621 / 2621 1508 / 1508 Output Total 1500 / 1500 1075 / 1075 1800 / 1800 Balance 686 / 686 1546 / 1546 -292 / -292 Microbiology Past 72 Hours 08/29/17 Unknown Gram Stain - Final Biopsy - Tissue Wound Culture - Final Enterococcus faecalis Anaerobic Culture - Final No anaerobic bacteria isolated. 08/29/17 Unknown Gram Stain - Final Biopsy - Tissue Wound Culture - Final Enterococcus faecalis Anaerobic Culture - Final No anaerobic bacteria isolated. 08/29/17 Unknown Gram Stain - Final Biopsy - Tissue Wound Culture - Final Enterococcus faecalis Anaerobic Culture - Final No anaerobic bacteria isolated. 08/28/17 08:35 Gram Stain - Final Fluid - Synovial (joint) Body Fluid Culture - Final Enterococcus faecalis Anaerobic Culture - Final No anaerobic bacteria isolated. 08/29/17 13:50 Blood Culture - Preliminary Blood Culture (Wb) - Anticubital Left No growth in 48 hours. 08/28/17 12:40 Blood Culture - Preliminary Blood Culture (Wb) - Anticubital Left No growth in 48 hours. Laboratory Tests Past 24 Hrs 08/31/17 09/01/17 09/02/17 09:50 18:20 08:38 WBC 7.3 RBC 3.07 L Hgb 8.4 L Hct 26.2 L MCV 85.3 MCH 27.4 MCHC 32.1 RDW 16.4 H RDW Differential 51.0 H Plt Count 162 MPV 8.8 Immature Gran % (Auto) 0.300 Neut % (Auto) 76.9 H Lymph % (Auto) 11.5 L [place] % (Auto) 6.6 Eos % (Auto) 4.3 Baso % (Auto) 0.4 Absolute Neuts (auto) 5.6 Absolute Lymphs (auto) 0.84 Total Counted Not Reportable Eos Smear Total Cells Sodium Potassium Chloride Carbon Dioxide Anion Gap BUN Creatinine Estim Creat Clear Calc Est GFR (MDRD) Af Amer Est GFR (MDRD) Non-Af BUN/Creatinine Ratio Glucose Calcium Urine Color Straw Urine Clarity Clear Urine pH 6.0 Ur Specific [place] 1.005 Urine Protein 30 H Urine Glucose (UA) Normal Urine Ketones Negative Urine Occult Blood 25 H Urine Nitrite Negative Urine Bilirubin Negative Urine Urobilinogen Normal Ur Leukocyte Esterase Negative Urine RBC 0-5 SEEN Urine WBC 0 SEEN Ur Squamous Epith Cells 0-5 SEEN Urine Bacteria 0 SEEN Urine Mucus 0 SEEN Ur Random Sodium Urine Creatinine Crossmatch See Detail 09/02/17 09/02/17 09/02/17 08:38 10:15 10:15 WBC RBC Hgb Hct MCV MCH MCHC RDW RDW Differential Plt Count MPV Immature Gran % (Auto) Neut % (Auto) Lymph % (Auto) [place] % (Auto) Eos % (Auto) Baso % (Auto) Absolute Neuts (auto) Absolute Lymphs (auto) Total Counted Eos Smear Total Cells Pending Sodium 137 Potassium 4.2 Chloride 106 Carbon Dioxide 20.0 L Anion Gap 11 BUN 54 H Creatinine 3.45 H Estim Creat Clear Calc 18.81 Est GFR (MDRD) Af Amer 22 L Est GFR (MDRD) Non-Af 19 L BUN/Creatinine Ratio 15.7 Glucose 145 H Calcium 8.4 L Urine Color Urine Clarity Urine pH Ur Specific [place] Urine Protein Urine Glucose (UA) Urine Ketones Urine Occult Blood Urine Nitrite Urine Bilirubin Urine Urobilinogen Ur Leukocyte Esterase Urine RBC Urine WBC Ur Squamous Epith Cells Urine Bacteria Urine Mucus Ur Random Sodium Urine Creatinine 28.00 Crossmatch 09/02/17 10:15 WBC RBC Hgb Hct MCV MCH MCHC RDW RDW Differential Plt Count MPV Immature Gran % (Auto) Neut % (Auto) Lymph % (Auto) [place] % (Auto) Eos % (Auto) Baso % (Auto) Absolute Neuts (auto) Absolute Lymphs (auto) Total Counted Eos Smear Total Cells Sodium Potassium Chloride Carbon Dioxide Anion Gap BUN Creatinine Estim Creat Clear Calc Est GFR (MDRD) Af Amer Est GFR (MDRD) Non-Af BUN/Creatinine Ratio Glucose Calcium Urine Color Urine Clarity Urine pH Ur Specific [place] Urine Protein Urine Glucose (UA) Urine Ketones Urine Occult Blood Urine Nitrite Urine Bilirubin Urine Urobilinogen Ur Leukocyte Esterase Urine RBC Urine WBC Ur Squamous Epith Cells Urine Bacteria Urine Mucus Ur Random Sodium 48 Urine Creatinine Crossmatch POC Glucose 09/02/17 09/01/17 09/01/17 06:02 22:00 16:14 POC Glucose 128 H 128 H 117 H 09/01/17 11:14 POC Glucose 126 H Route of nutrition/ use of supplements: [] Nutritional Intake: [] IV Site: [] Irving Catheter: [] - Assessment/Plan Antibiotics: [] Assessment/Plan: [] Active and Suspected Problems Septic arthritis (Acute) Bacteremia due to Enterococcus (Acute) 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 Has h/o CKD and bioprosthetic AVR - repeat bcx neg since 08/29. Taken to OR 08/[address] Bryant for debridement with poly exchange. Has splinter hemorrhage on L 2nd toe , no other signs of endocarditis. 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 TIM with no veg seen. Continue ampicillin. Plan on 6-8 weeks IV abx. VINOD on CKD - neph to be consulted. requesting UA/Ucx due to confusion. Will also order urine eos. D/w Dr. Bang, will follow.
[2017-09-02 12:11] LABS: Bedside Glucose 160 mg/dL (70-110)
--- NOTE | 2017-09-02 12:36 | PCM.CONS.R ---
Consultation - Renal 09/02/17 PCP/ Referring MD: Requesting physician: Christine Bang MD Primary care physician: Dejuan Catherine DO Reason for Consultation:: Acute on CKD Stage 4 in solitary kidney - History of Present Illness History of Present Illness: The patient is a 62 y/o M with history of solitary kidney disease s/p rt nephrectomy for renal cell cancer in January 2016, CKD Stage [address] 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 He has a baseline creatinine 2.5-2.8 in July 2017 when he was hospitalized in [facility] for sepsis with enterococcus faecalis of unclear source. He was discharged to home with PICC line on ampicillin iv until 08/25. He is readmitted for recurrent bacteremia with enterococcus faecalis on blood cx from 08/27 drawn in ER. He underwent synovectomy, irrigation of left knee on 08/29/17 for septic knee with purulent drainage. He underwent TIM on 09/01 that was negative for vegetations. LVEF was 55% with LAE and ZAHEER. He has moderate TR and severe MR. He is s/p bioprosthetic AV replacement on 07/21/15. He has CAD s/p CABG in Jul 2015, hx afib, diabetes and hypertension. He had confusion, agitation past 2-3 days with poor intake according to his . His mental status is back to baseline today. Denied diarrhea, nausea, vomiting, shortness of breath or chest pain. He continues to have a low grade fever. He was given iv vanco on 08/28 x1 dose, currently on ampicillin renal dosed with ID on consult. No recent iv contrast. Creatinine on admit was 3.3 improved to 2.77 on 08/30. Creatinine increased to 3.45 on 09/02 while on NS at 75cc/hr since 08/31. Urine output has been adequate. Renal US showed complex solid and cystic nodule on lateral, mid pole of left kidney without hydronephrosis, +prostate enlargement. - Allergies Allergies: Allergies losartan potassium [From Cozaar] Allergy (Severe, Verified 08/28/17 04:00) Other valsartan [From Diovan HCT] Allergy (Severe, Verified 08/28/17 04:00) Other amlodipine besylate [From Norvasc] Allergy (Verified 08/28/17 04:00) Other doxazosin mesylate [From Cardura] Allergy (Verified 08/28/17 04:00) Other furosemide [From Lasix] Allergy (Verified 08/28/17 04:00) Other hydrochlorothiazide Allergy (Verified 08/28/17 04:00) Other metoprolol succinate [From Toprol XL] Allergy (Verified 08/28/17 04:00) Other simvastatin Allergy (Verified 08/28/17 04:00) Other oxycodone [From OxyIR] Adverse Reaction (Verified 08/30/17 10:36) tremors Hydrogenated Vegetable Oil Adverse Reaction (Uncoded 08/28/17 04:00) Upset Stomach vicodin Adverse Reaction (Uncoded 08/27/17 11:44) Other - Current Medications Current Medications: Current Medications Acetaminophen (Tylenol) 650 mg PO Q4H PRN PRN PRN Reason: FEVER Acetaminophen (Tylenol) 650 mg PO Q6H PRN PRN PRN Reason: PAIN Apixaban (Eliquis) 2.5 mg PO BID FORMERLY [facility], [facility] Last Admin: 09/01/17 09:41 Dose: 2.5 mg Ascorbic Acid (Vitamin C) 1,000 mg PO DAILY@0800 FOR[facility], [facility] Last Admin: 09/02/17 08:02 Dose: 1,000 mg Bisacodyl (Dulcolax) 5 mg PO DAILY PRN PRN PRN Reason: Constipation Cholecalciferol (Vitamin D) 2,000 unit PO DAILY [facility], [facility] Last Admin: 09/02/17 10:53 Dose: 2,000 unit Dextrose (D50w Syringe) 0 gm IV X1 PRN; Protocol PRN Reason: Hypoglycemia Diltiazem HCl (Cardizem Cd) 180 mg PO BID [facility], [facility] Last Admin: 09/02/17 10:52 Dose: 180 mg Docusate Sodium (Colace) 100 mg PO DAILY [facility] Last Admin: 09/02/17 10:52 Dose: 100 mg Famotidine (Pepcid) 20 mg PO DAILY [facility] Last Admin: 09/02/17 10:53 Dose: 20 mg Ferrous Sulfate (Ferrous Sulfate) 325 mg PO DAILYCM [facility], [facility] Last Admin: 09/02/17 08:02 Dose: 325 mg Glucagon () 1 mg IM .X1 PRN PRN Reason: Hypoglycemia Hydromorphone HCl (Dilaudid) 1 mg IV Q4H PRN PRN PRN Reason: SEVERE PAIN (6-10/10) Last Admin: 08/30/17 18:26 Dose: 1 mg Ampicillin Sodium 2 gm/ Sodium (Chloride) 100 mls @ 150 mls/hr IV Q12 [facility] Last Admin: 09/02/17 10:52 Dose: 150 mls/hr Sodium Chloride () 1,000 mls @ 75 mls/hr IV .[id number] [facility] Last Admin: 09/02/17 08:01 Dose: 75 mls/hr Insulin Aspart (Novolog Flexpen (Bkc)) 0 units SC ACHS [facility] PRN Reason: Protocol Last Admin: 09/02/17 12:10 Dose: 1 unit Labetalol HCl (Trandate) 100 mg PO BID [facility] Last Admin: 09/02/17 10:53 Dose: 100 mg Magnesium Hydroxide (Milk Of Magnesia) 30 ml PO DAILY PRN PRN PRN Reason: Constipation Morphine Sulfate (Morphine) 2 - 4 mg IV Q2H PRN PRN PRN Reason: SEVERE PAIN (6-10/10) Last Admin: 08/29/17 17:29 Dose: 4 mg Multivitamins (Multivitamin) 1 tablet PO DAILYCM [facility] Last Admin: 09/02/17 08:02 Dose: 1 tablet Nutritional Formula (Lactose Free) (Glucerna Shake) 120 ml PO TIDCM [facility] Last Admin: 09/02/17 08:05 Dose: 120 ml Ondansetron HCl (Zofran) 4 mg IV Q8H PRN PRN PRN Reason: NAUSEA Promethazine HCl (Phenergan (Ll)) 12.5 mg IM Q6H PRN PRN; Protocol PRN Reason: NAUSEA/VOMITING Senna/Docusate Sodium (Senokot-S, Lesia-Colace) 2 tablet PO BID [facility] Last Admin: 09/02/17 10:53 Dose: 2 tablet Sodium Chloride () 5 - 30 ml IV UD PRN PRN Reason: SALINE FLUSH Last Admin: 09/02/17 12:07 Dose: 10 ml Tramadol HCl (Ultram (G)) 50 - 100 mg PO Q12H PRN PRN Reason: MOD-SEVERE PAIN (4-10/10) Last Admin: 08/31/17 11:37 Dose: 50 mg - Past Medical History Past Medical History (Chronic Problems): Chronic Problems Hyperlipidemia (Chronic) Hypertension (Chronic) Osteoarthritis of left knee (Chronic) S/P CABG x 3 (Chronic) Triple bypass in July 2015 at [facility] in [place] CAD (coronary artery disease) (Chronic) Hypertension, essential (Chronic) DM2 (diabetes mellitus, type 2) (Chronic) Renal cell cancer (Chronic) S/P nephrectomy on January 13, 2016 at Chronic kidney disease (Chronic) Solitary kidney (Chronic) Aortic stenosis (Chronic) - Past Surgical History Surgical History: cataract, coronary bypass surgery - X 3., herniorrhaphy - Umbilical., - - Hemorrhoidectomy, aortic valve replacement (bovine), cardiac stent, right nephrectomy 01/15/2016. - Social History Smoking Status: Former smoker Alcohol: None Drugs: None - Family History Sibling History Items: Diabetes Paternal History Items: No pertinent history Maternal History Items: Cancer - breast - Physical Exam General: Alert, Oriented x3, Cooperative, No apparent distress HEENT: PERRLA, EOMI Oral: Dry Mucosa Neck: Supple, No JVD Lungs: Clear to auscultation Cardiovascular: Regular rate, Murmur Abdomen: Bowel Sounds Present, Soft, Non Tender, Non-Distended Extremities: No edema Skin: - - ecchymosis Neurological: Cranial nerves II-XII grossly intact, - - no tremor Psych/Mental Status: Normal Affect, Appropriate, Alert and oriented to time, place, person, mood and affect Vital Signs Temp Pulse Resp BP Pulse Ox 98.4 F 74 16 141/72 H 97 09/02/17 12:29 09/02/17 12:29 09/02/17 12:29 09/02/17 12:29 09/02/17 12:29 Oxygen Flow Rate 2 Oxygen Delivery Method Room Air Weight: 93.4 kg Body Mass Index (BMI) 29.5 Finger Stick Blood Glucose 129 Intake and Output for Last 24 Hours 08/31/17 09/01/17 09/02/17 23:59 23:59 23:59 Intake Total 2186 / 2186 2621 / 2621 2346 / 2346 Output Total 1500 / 1500 1075 / 1075 2450 / 2450 Balance 686 / 686 1546 / 1546 -104 / -104 Microbiology Past 72 Hours 08/29/17 Unknown Gram Stain - Final Biopsy - Tissue Wound Culture - Final Enterococcus faecalis Anaerobic Culture - Final No anaerobic bacteria isolated. 08/29/17 Unknown Gram Stain - Final Biopsy - Tissue Wound Culture - Final Enterococcus faecalis Anaerobic Culture - Final No anaerobic bacteria isolated. 08/29/17 Unknown Gram Stain - Final Biopsy - Tissue Wound Culture - Final Enterococcus faecalis Anaerobic Culture - Final No anaerobic bacteria isolated. 08/28/17 08:35 Gram Stain - Final Fluid - Synovial (joint) Body Fluid Culture - Final Enterococcus faecalis Anaerobic Culture - Final No anaerobic bacteria isolated. 08/29/17 13:50 Blood Culture - Preliminary Blood Culture (Wb) - Anticubital Left No growth in 48 hours. 08/28/17 12:40 Blood Culture - Preliminary Blood Culture (Wb) - Anticubital Left No growth in 48 hours. Laboratory Tests Past 24 Hrs 08/31/17 09/01/17 09/02/17 09:50 18:20 08:38 WBC 7.3 RBC 3.07 L Hgb 8.4 L Hct 26.2 L MCV 85.3 MCH 27.4 MCHC 32.1 RDW 16.4 H RDW Differential 51.0 H Plt Count 162 MPV 8.8 Immature Gran % (Auto) 0.300 Neut % (Auto) 76.9 H Lymph % (Auto) 11.5 L [place] % (Auto) 6.6 Eos % (Auto) 4.3 Baso % (Auto) 0.4 Absolute Neuts (auto) 5.6 Absolute Lymphs (auto) 0.84 Total Counted Not Reportable Eos Smear Total Cells Sodium Potassium Chloride Carbon Dioxide Anion Gap BUN Creatinine Estim Creat Clear Calc Est GFR (MDRD) Af Amer Est GFR (MDRD) Non-Af BUN/Creatinine Ratio Glucose Calcium Urine Color Straw Urine Clarity Clear Urine pH 6.0 Ur Specific [place] 1.005 Urine Protein 30 H Urine Glucose (UA) Normal Urine Ketones Negative Urine Occult Blood 25 H Urine Nitrite Negative Urine Bilirubin Negative Urine Urobilinogen Normal Ur Leukocyte Esterase Negative Urine RBC 0-5 SEEN Urine WBC 0 SEEN Ur Squamous Epith Cells 0-5 SEEN Urine Bacteria 0 SEEN Urine Mucus 0 SEEN Ur Random Sodium Urine Creatinine Crossmatch See Detail 09/02/17 09/02/17 09/02/17 08:38 10:15 10:15 WBC RBC Hgb Hct MCV MCH MCHC RDW RDW Differential Plt Count MPV Immature Gran % (Auto) Neut % (Auto) Lymph % (Auto) [place] % (Auto) Eos % (Auto) Baso % (Auto) Absolute Neuts (auto) Absolute Lymphs (auto) Total Counted Eos Smear Total Cells Pending Sodium 137 Potassium 4.2 Chloride 106 Carbon Dioxide 20.0 L Anion Gap 11 BUN 54 H Creatinine 3.45 H Estim Creat Clear Calc 18.81 Est GFR (MDRD) Af Amer 22 L Est GFR (MDRD) Non-Af 19 L BUN/Creatinine Ratio 15.7 Glucose 145 H Calcium 8.4 L Urine Color Urine Clarity Urine pH Ur Specific [place] Urine Protein Urine Glucose (UA) Urine Ketones Urine Occult Blood Urine Nitrite Urine Bilirubin Urine Urobilinogen Ur Leukocyte Esterase Urine RBC Urine WBC Ur Squamous Epith Cells Urine Bacteria Urine Mucus Ur Random Sodium Urine Creatinine 28.00 Crossmatch 09/02/17 10:15 WBC RBC Hgb Hct MCV MCH MCHC RDW RDW Differential Plt Count MPV Immature Gran % (Auto) Neut % (Auto) Lymph % (Auto) [place] % (Auto) Eos % (Auto) Baso % (Auto) Absolute Neuts (auto) Absolute Lymphs (auto) Total Counted Eos Smear Total Cells Sodium Potassium Chloride Carbon Dioxide Anion Gap BUN Creatinine Estim Creat Clear Calc Est GFR (MDRD) Af Amer Est GFR (MDRD) Non-Af BUN/Creatinine Ratio Glucose Calcium Urine Color Urine Clarity Urine pH Ur Specific [place] Urine Protein Urine Glucose (UA) Urine Ketones Urine Occult Blood Urine Nitrite Urine Bilirubin Urine Urobilinogen Ur Leukocyte Esterase Urine RBC Urine WBC Ur Squamous Epith Cells Urine Bacteria Urine Mucus Ur Random Sodium 48 Urine Creatinine Crossmatch POC Glucose 09/02/17 09/02/17 09/01/17 12:03 06:02 22:00 POC Glucose 160 H 128 H 128 H 09/01/17 16:14 POC Glucose 117 H Clinical Impression(s) from Imaging Studies Renal Ultrasound 09/02/17 09:52 IMPRESSION: Status post right nephrectomy. There is a new 2.2 cm x 2 signed by 2.1 sono complex solid and cystic nodule in the lateral aspect of the midportion of the left kidney. Correlation with a CT scan is recommended. Electronically Signed: Marquis Luna MD at 12:37 EST Tel [phone], Service support , Assessment/Plan 1. Acute on CKD stage 4 in solitary kdiney likely due to ATN from sepsis, FeNa >1%. Baseline creatinine 2.5-2.9 now at 3.45 eGFR 18cc/min. Currently no urgent need for dialysis, no uremic symptoms with stable volume status. Check complement C3 for evaluation of SBE. 2. Recurrent Sepsis with enterococcus faecalis. Urine c/s have been negative in the past. 3. Hx AV replacement TIM negative for vegetation 4. Septic left knee s/p TKA in September 2016. 5. CDA s/p CABG, afib 6. DM2 stable, primary care mgmt 7. HTN stable 8. BPH asymptomatic 9. Renal cell cancer s/p rt nephrectomy January 2016 with complex solid, cystic mass in left kidney on US. Recommend referral back to [facility] whom he had seen in the past. Consider MRI w/o contrast due to renal failure. thank you, DW hospitalist
[2017-09-02 16:26] LABS: Bedside Glucose 124 mg/dL (70-110)
[2017-09-02 20:53] LABS: Bacteria 0 SEEN /hpf (None Seen); Mucous, Urine 0 SEEN /hpf (<or=2+); Red Blood Cells-Urine 0 SEEN /hpf (0-5); Squamous Epithelial Cells - UA 0 SEEN /hpf (0-5); White Blood Cells 0 SEEN /hpf (0-5)
[2017-09-02 20:54] LABS: Color, Urine Straw (Yellow); Glucose, Dipstick Normal (Normal); Ketone-Dipstick Negative (Negative); Leukocyte Esterase-Dipstick Negative /ul (Negative); Nitrite-Dipstick Negative (Negative); Occult Blood-Urine 10 /ul (Negative); Protein-Dipstick 30 mg/dl (Negative); Urine Bilirubin Dipstick Negative (Negative); Urine Clarity Clear (Clear); Urine Urobilinogen Normal (Normal)
--- NOTE | 2017-09-02 23:18 | EKG12_ITS ---
Test Reason : CP Blood Pressure : / mmHG Vent. Rate : 089 BPM Atrial Rate : 089 BPM P-R Int : 182 ms QRS Dur : 116 ms QT Int : 402 ms P-R-T Axes : 064 023 066 degrees QTc Int : 489 ms Sinus rhythm with frequent Premature ventricular complexes Incomplete left bundle branch block Nonspecific ST abnormality Prolonged QT Abnormal ECG When compared with ECG of 29-AUG-2017 09:29, Premature ventricular complexes are now Present Nonspecific T wave abnormality no longer evident in Lateral leads Confirmed by NAVDEEP WILLIS, ANJELICA ([id number]), acquisitions editor JOHN TATUM ([id number]) on 09/14/2017 3:30:25 PM Referred By: Dejuan Catherine Confirmed By:ANJELICA SETHI MD
[2017-09-02 23:30] LABS: Bedside Glucose 119 mg/dL (70-110)
--- NOTE | 2017-09-02 23:40 | NURSING ---
patient reports chest pain with shortness of breath. Hospitalist paged. EKG, troponin ordered. BP elevated. 177/89, HR 90. SPO2 95% on 3L. Patient reported feeling better after oxygen was applied.
[2017-09-03] VITALS (19 sets, daily range): BP systolic 138–187; BP diastolic 70–87; PULSE 64–90; RESP 16–20; TEMP 35.8–37.2; O2SAT 92–98; BMI 29.4; BMI 29.0
--- NOTE | 2017-09-03 00:35 | NURSING ---
patient transferred to [facility], report called to KAREN Blakely
[2017-09-03] MEDS: Aspirin E.C. 81 MG Tablet PO (00:55)
[2017-09-03] MEDS: Nitroglycerin Oint 1 INCH PACKET TRANSDERM. ×2 (00:56→06:06)
--- NOTE | 2017-09-03 01:05 | NURSING ---
report received from MS RN, Ying. Pt to PCU Bed 122. in room.
--- NOTE | 2017-09-03 01:20 | PCM.HOSP.N ---
Hospitalist Note Back note from 09/02/2017 Nurse called me for chest pain and shortness of breath. Patient seen and examined Patient complain of chest pain, anteriorly across both nipples. Patient has extensive history of coronary artery disease status post CABG and bioprosthetic aortic valve replacement. Patient had TIM which did not show any vegetation. On IV antibiotics for left knee periprosthetic infection with Enterococcus faecalis with septic arthritis. Patient has Enterococcus faecalis bacteremia. Twelve-lead EKG was ordered As compared to the previous EKG, EKG of 11 PM shows normal sinus rhythm with slight ST elevation in V1 to V4 with T inversion in V5 to V6. Troponin ordered. Troponins old 0.63 Patient transferred to PCU. Started on baby aspirin and nitro ointment. Patient is already on Eliquis, labetalol. Serial cardiac enzymes ordered. Chief Unit Forester consult to Dr. perkins who is his regular cloth bale header.
--- NOTE | 2017-09-03 01:24 | CCHN_ITS ---
Hospitalist Note Back note from 09/02/2017 Nurse called me for chest pain and shortness of breath. Patient seen and examined Patient complain of chest pain, anteriorly across both nipples. Patient has extensive history of coronary artery disease status post CABG and bioprosthetic aortic valve replacement. Patient had TIM which did not show any vegetation. On IV antibiotics for left knee periprosthetic infection with Enterococcus faecalis with septic arthritis. Patient has Enterococcus faecalis bacteremia. Twelve-lead EKG was ordered As compared to the previous EKG, EKG of 11 PM shows normal sinus rhythm with slight ST elevation in V1 to V4 with T inversion in V5 to V6. Troponin ordered. Troponins old 0.63 Patient transferred to PCU. Started on baby aspirin and nitro ointment. Patient is already on Eliquis, labetalol. Serial cardiac enzymes ordered. Pot Fireman consult to Dr. perkins who is his regular entry level account executive.
[2017-09-03 03:55] LABS: Absolute Lymphocyte Count 0.71 X10^3/ul (0.83-4.51); Absolute Neutrophil Count 6.7 X10^3/uL (2.0-7.7); Basophil# 0.02 X10^3/uL; Basophil% 0.2 % (0-1); Eosinophil# 0.33 X10^3/uL; Eosinophils% 3.8 % (0-5); Hemoglobin 8.2 g/dl (13.0-16.5); Lymphocyte # 0.71 X10^3/ul (4.0); Lymphocyte % 8.3 % (19-41); Mean Corp Hgb Conc 31.5 g/gl (32-36); Mean Corpuscular Hgb 27.3 pg (27.0-32.0); Mean Corpuscular Volume 86.7 fL (80-94); Mean Platelet Vol. 8.7 fl (6.2-12.0); Monocyte# 0.78 X10^3/uL; Monocyte% 9.1 % (0-10); Neutrophil # 6.73 X10^3/uL (2.7-7.7); Neutrophil % 78.4 % (47-70); POSITIVE COUNT NO; POSITIVE DIFFERENTIAL NO; POSITIVE MORPHOLOGY NO; Platelet Count 220 K/mm3 (150-450); RBC Distribution Width SD 49.1 fl (35.1-43.9); White Blood Count 8.6 K/mm3 (4.4-11.0)
[2017-09-03 04:21] LABS: Anion Gap 12 (5-15); BUN 54 mg/dL (7-18); BUN/Creat Ratio 15.6 RATIO (10-20); Calcium,Total 8.4 mg/dL (8.5-10.1); Chloride 105 mmol/L (98-107); Creatinine, Serum 3.46 mg/dL (0.70-1.30); EST Glomerular Filtration Rate 18 mL/min (>60); Est Glom Filt Rate - Afr Amer 22 mL/min (>60); Estimated Creatinine Clearance 18.75 ml/min; Glucose 135 mg/dL (74-106); Sodium Level 137 mmol/L (136-145)
[2017-09-03 05:51] LABS: AST(SGOT) 16 U/L (15-37); Alanine Aminotransfer ALT/SGPT 21 U/L (16-61); Albumin, Serum 2.3 g/dL (3.2-5.0); Alkaline Phosphatase 86 U/L (45-117); Bilirubin, Direct 0.12 mg/dL (0.00-0.30); Protein, Total 6.3 g/dL (6.4-8.2)
--- NOTE | 2017-09-03 05:55 | EKG12_ITS ---
Test Reason : AM EKG Blood Pressure : / mmHG Vent. Rate : 075 BPM Atrial Rate : 075 BPM P-R Int : 186 ms QRS Dur : 116 ms QT Int : 438 ms P-R-T Axes : 033 008 102 degrees QTc Int : 489 ms Normal sinus rhythm Incomplete left bundle branch block Prolonged QT Abnormal ECG When compared with ECG of 02-SEP-2017 23:10, MANUAL COMPARISON REQUIRED, DATA IS UNCONFIRMED Confirmed by NAVDEEP WILLIS, ANJELICA ([id number]), medical editor JOHN TATUM ([id number]) on 09/09/2017 1:19:31 PM Referred By: DR HOPKINS Confirmed By:ANJELICA SETHI MD
--- NOTE | 2017-09-03 06:34 | PCM.PN.BLA ---
Progress Note Patient was evaluated this morning. He was transferred to PCU overnight secondary to chest pain and increased shortness of breath. EKG changes demonstrated slight ST elevation in V1 to V4 and T wave inversion in V5 to V6. Troponin levels have been 0.[address] Frye was consulted and evaluated patient in the room this morning when I was present. Patient tis well known to Dr. Frye. After evaluation, Dr. Frye stated the port-a-cath procedure may proceed as planned. He does recommend decreasing fluids to 30 mls/hr. Will discuss this patient with Dr. Hernandez.
--- NOTE | 2017-09-03 06:35 | NURSING ---
Dr Frye and Megan Garland in room to discuss POC. Dada & Uday made aware of course of the night. Uday gave the okay to continue with procedure as planned, cleared from a cardiac standpoint.
[2017-09-03 07:11] LABS: Bedside Glucose 127 mg/dL (70-110)
--- NOTE | 2017-09-03 07:34 | PCM.CONS.U ---
Problem List (1) Left renal mass Status: Acute (2) Cancer of right kidney Status: Acute Comment: Status post nephrectomy Reason for Consult Date of Consultation: 09/03/17 Reason for Consultation: Left renal mass History of Present Illness: The patient is a 76 year old male who is known to my service has a history of a very large right renal mass and underwent a laparoscopic nephrectomy in the past. He now presents to the hospital apparently has a septic arthritis. The urine is clear with no infection. Ultrasound was done to evaluate the kidney because of renal dysfunction. He does have a fairly high creatinine and poor clearance of his creatinine. Certainly at risk for dialysis in the future. On ultrasound he has a 2 cm mass cystic solid mass which appears to be new. Does not have any other overt symptoms of metastatic disease. Past Medical History Past Medical History (Chronic Problems): Chronic Problems Hyperlipidemia (Chronic) Hypertension (Chronic) Osteoarthritis of left knee (Chronic) S/P CABG x 3 (Chronic) Triple bypass in July 2015 at [facility] in [place] CAD (coronary artery disease) (Chronic) Hypertension, essential (Chronic) DM2 (diabetes mellitus, type 2) (Chronic) Renal cell cancer (Chronic) S/P nephrectomy on January 13, 2016 at Chronic kidney disease (Chronic) Solitary kidney (Chronic) Aortic stenosis (Chronic) Allergies losartan potassium [From Cozaar] Allergy (Severe, Verified 08/28/17 04:00) Other valsartan [From Diovan HCT] Allergy (Severe, Verified 08/28/17 04:00) Other amlodipine besylate [From Norvasc] Allergy (Verified 08/28/17 04:00) Other doxazosin mesylate [From Cardura] Allergy (Verified 08/28/17 04:00) Other furosemide [From Lasix] Allergy (Verified 08/28/17 04:00) Other hydrochlorothiazide Allergy (Verified 08/28/17 04:00) Other metoprolol succinate [From Toprol XL] Allergy (Verified 08/28/17 04:00) Other simvastatin Allergy (Verified 08/28/17 04:00) Other oxycodone [From OxyIR] Adverse Reaction (Verified 08/30/17 10:36) tremors Hydrogenated Vegetable Oil Adverse Reaction (Uncoded 08/28/17 04:00) Upset Stomach vicodin Adverse Reaction (Uncoded 08/27/17 11:44) Other Home Medications: Ambulatory Orders Medication Instructions Recorded Ascorbic Acid [Vitamin C] 1,000 mg PO DAILY@0800 02/06/16 Multivitamin [Daily Multiple 1 each PO DAILY 02/06/16 Vitamin] Nateglinide [Starlix] 30 mg PO TIDCM 02/06/16 Cholecalciferol (Vitamin D3) 2,000 unit PO DAILY 07/28/17 [Vitamin D3] Docusate Sodium [Colace] 100 mg PO DAILY 07/28/17 Iron Polysaccharide Complex 325 mg PO DAILYCM 07/28/17 [Ferrex 150] Labetalol [Trandate (Beta Liz)] 100 mg PO BID 07/28/17 Diltiazem HCl [Diltiazem ER] 180 mg PO BID 07/29/17 Surgical History: cataract, coronary bypass surgery - X 3., herniorrhaphy - Umbilical., - - Hemorrhoidectomy, aortic valve replacement (bovine), cardiac stent, right nephrectomy 01/15/2016. Psychiatric History: No pertinent psych hx Lives: Spouse/ Significant Other Smoking Status: Former smoker Tobacco Use: Non-smoker Alcohol: None Drugs: None - *Family History Sibling History Items: Diabetes Paternal History Items: No pertinent history Maternal History Items: Cancer - breast Physical Exam - Physical Exam Vital Signs Temp 97.3 F L 09/03/17 06:03 Pulse 83 09/03/17 06:57 Resp 20 H 09/03/17 06:03 BP 159/77 H 09/03/17 06:03 Pulse Ox 94 09/03/17 06:03 Intake & Output 09/01/17 09/02/17 09/03/17 23:59 23:59 23:59 Intake Total 2621 / 2621 3235 / 3235 1171 / 1171 Output Total 1075 / 1075 3100 / 3100 900 / 900 Balance 1546 / 1546 135 / 135 271 / 271 Weight: 93.4 kg Intake: Oral 1300 / 1300 1550 / 1550 100 / 100 IV fluid/meds 921 / 921 1685 / 1685 1071 / 1071 Blood Product 400 / 400 Leuko-Reduced Red Blood Cells 400 / 400 Unit [id number] Output: Urine 900 / 900 2400 / 2400 900 / 900 #2 Urine 175 / 175 700 / 700 Other: Number of Voids 3 3 Incontinent Amount Urine #2 Small Number of times incontinent 2 Urine #2 Number of Bowel Movements 1 1 General: Alert, Oriented x3, No apparent distress Oral: Moist Mucosa Neck: Supple Lungs: Clear to auscultation Cardiovascular: Regular rate, Regular Rhythm Abdomen: Bowel Sounds Present, Soft, Obese Rectal: Exam deferred Microbiology Past 72 Hours 08/31/17 09:50 Blood Culture - Preliminary Blood Culture (Wb) - Anticubital Left No growth in 48 hours. 08/28/17 12:40 Blood Culture - Final Blood Culture (Wb) - Anticubital Left No growth in 5 days. 08/29/17 Unknown Gram Stain - Final Biopsy - Tissue Wound Culture - Final Enterococcus faecalis Anaerobic Culture - Final No anaerobic bacteria isolated. 08/29/17 Unknown Gram Stain - Final Biopsy - Tissue Wound Culture - Final Enterococcus faecalis Anaerobic Culture - Final No anaerobic bacteria isolated. 08/29/17 Unknown Gram Stain - Final Biopsy - Tissue Wound Culture - Final Enterococcus faecalis Anaerobic Culture - Final No anaerobic bacteria isolated. 08/28/17 08:35 Gram Stain - Final Fluid - Synovial (joint) Body Fluid Culture - Final Enterococcus faecalis Anaerobic Culture - Final No anaerobic bacteria isolated. 08/29/17 13:50 Blood Culture - Preliminary Blood Culture (Wb) - Anticubital Left No growth in 48 hours. Laboratory Tests Past 24 Hrs 09/02/17 09/02/17 09/02/17 08:38 08:38 10:15 WBC 7.3 RBC 3.07 L Hgb 8.4 L Hct 26.2 L MCV 85.3 MCH 27.4 MCHC 32.1 RDW 16.4 H RDW Differential 51.0 H Plt Count 162 MPV 8.8 Immature Gran % (Auto) 0.300 Neut % (Auto) 76.9 H Lymph % (Auto) 11.5 L [place] % (Auto) 6.6 Eos % (Auto) 4.3 Baso % (Auto) 0.4 Absolute Neuts (auto) 5.6 Absolute Lymphs (auto) 0.84 Total Counted Not Reportable Eos Smear Total Cells Pending Sodium 137 Potassium 4.2 Chloride 106 Carbon Dioxide 20.0 L Anion Gap 11 BUN 54 H Creatinine 3.45 H Estim Creat Clear Calc 18.81 Est GFR (MDRD) Af Amer 22 L Est GFR (MDRD) Non-Af 19 L BUN/Creatinine Ratio 15.7 Glucose 145 H Hemoglobin A1c Calcium 8.4 L Magnesium Total Bilirubin Direct Bilirubin AST ALT Alkaline Phosphatase Troponin I Total Protein Albumin Globulin Urine Color Urine Clarity Urine pH Ur Specific [place] Urine Protein Urine Glucose (UA) Urine Ketones Urine Occult Blood Urine Nitrite Urine Bilirubin Urine Urobilinogen Ur Leukocyte Esterase Urine RBC Urine WBC Ur Squamous Epith Cells Urine Bacteria Urine Mucus Ur Random Sodium Urine Creatinine Complement C3 09/02/17 09/02/17 09/02/17 10:15 10:15 10:15 WBC RBC Hgb Hct MCV MCH MCHC RDW RDW Differential Plt Count MPV Immature Gran % (Auto) Neut % (Auto) Lymph % (Auto) [place] % (Auto) Eos % (Auto) Baso % (Auto) Absolute Neuts (auto) Absolute Lymphs (auto) Total Counted Eos Smear Total Cells Sodium Potassium Chloride Carbon Dioxide Anion Gap BUN Creatinine Estim Creat Clear Calc Est GFR (MDRD) Af Amer Est GFR (MDRD) Non-Af BUN/Creatinine Ratio Glucose Hemoglobin A1c Calcium Magnesium Total Bilirubin Direct Bilirubin AST ALT Alkaline Phosphatase Troponin I Total Protein Albumin Globulin Urine Color Straw Urine Clarity Clear Urine pH 5.0 Ur Specific [place] 1.010 Urine Protein 30 H Urine Glucose (UA) Normal Urine Ketones Negative Urine Occult Blood 10 H Urine Nitrite Negative Urine Bilirubin Negative Urine Urobilinogen Normal Ur Leukocyte Esterase Negative Urine RBC 0 SEEN Urine WBC 0 SEEN Ur Squamous Epith Cells 0 SEEN Urine Bacteria 0 SEEN Urine Mucus 0 SEEN Ur Random Sodium 48 Urine Creatinine 28.00 Complement C3 09/02/17 09/03/17 09/03/17 23:36 03:44 03:44 WBC 8.6 RBC 3.00 L Hgb 8.2 L Hct 26.0 L MCV 86.7 MCH 27.3 MCHC 31.5 L RDW 16.0 H RDW Differential 49.1 H Plt Count 220 MPV 8.7 Immature Gran % (Auto) 0.200 Neut % (Auto) 78.4 H Lymph % (Auto) 8.3 L [place] % (Auto) 9.1 Eos % (Auto) 3.8 Baso % (Auto) 0.2 Absolute Neuts (auto) 6.7 Absolute Lymphs (auto) 0.71 L Total Counted Not Reportable Eos Smear Total Cells Sodium 137 Potassium 4.0 Chloride 105 Carbon Dioxide 20.0 L Anion Gap 12 BUN 54 H Creatinine 3.46 H Estim Creat Clear Calc 18.75 Est GFR (MDRD) Af Amer 22 L Est GFR (MDRD) Non-Af 18 L BUN/Creatinine Ratio 15.6 Glucose 135 H Hemoglobin A1c Calcium 8.4 L Magnesium Total Bilirubin Direct Bilirubin AST ALT Alkaline Phosphatase Troponin I 0.63 H* Total Protein Albumin Globulin Urine Color Urine Clarity Urine pH Ur Specific [place] Urine Protein Urine Glucose (UA) Urine Ketones Urine Occult Blood Urine Nitrite Urine Bilirubin Urine Urobilinogen Ur Leukocyte Esterase Urine RBC Urine WBC Ur Squamous Epith Cells Urine Bacteria Urine Mucus Ur Random Sodium Urine Creatinine Complement C3 09/03/17 09/03/17 09/03/17 03:44 03:44 03:44 WBC RBC Hgb Hct MCV MCH MCHC RDW RDW Differential Plt Count MPV Immature Gran % (Auto) Neut % (Auto) Lymph % (Auto) [place] % (Auto) Eos % (Auto) Baso % (Auto) Absolute Neuts (auto) Absolute Lymphs (auto) Total Counted Eos Smear Total Cells Sodium Potassium Chloride Carbon Dioxide Anion Gap BUN Creatinine Estim Creat Clear Calc Est GFR (MDRD) Af Amer Est GFR (MDRD) Non-Af BUN/Creatinine Ratio Glucose Hemoglobin A1c Calcium Magnesium 2.0 Total Bilirubin 0.50 Direct Bilirubin 0.12 AST 16 ALT 21 Alkaline Phosphatase 86 Troponin I 0.59 H Total Protein 6.3 L Albumin 2.3 L Globulin 4.0 Urine Color Urine Clarity Urine pH Ur Specific [place] Urine Protein Urine Glucose (UA) Urine Ketones Urine Occult Blood Urine Nitrite Urine Bilirubin Urine Urobilinogen Ur Leukocyte Esterase Urine RBC Urine WBC Ur Squamous Epith Cells Urine Bacteria Urine Mucus Ur Random Sodium Urine Creatinine Complement C3 Pending 09/03/17 03:44 WBC RBC Hgb Hct MCV MCH MCHC RDW RDW Differential Plt Count MPV Immature Gran % (Auto) Neut % (Auto) Lymph % (Auto) [place] % (Auto) Eos % (Auto) Baso % (Auto) Absolute Neuts (auto) Absolute Lymphs (auto) Total Counted Eos Smear Total Cells Sodium Potassium Chloride Carbon Dioxide Anion Gap BUN Creatinine Estim Creat Clear Calc Est GFR (MDRD) Af Amer Est GFR (MDRD) Non-Af BUN/Creatinine Ratio Glucose Hemoglobin A1c Pending Calcium Magnesium Total Bilirubin Direct Bilirubin AST ALT Alkaline Phosphatase Troponin I Total Protein Albumin Globulin Urine Color Urine Clarity Urine pH Ur Specific [place] Urine Protein Urine Glucose (UA) Urine Ketones Urine Occult Blood Urine Nitrite Urine Bilirubin Urine Urobilinogen Ur Leukocyte Esterase Urine RBC Urine WBC Ur Squamous Epith Cells Urine Bacteria Urine Mucus Ur Random Sodium Urine Creatinine Complement C3 Assessment/Plan Active and Suspected Problems Left renal mass (Acute) Cancer of right kidney (Acute) Status post nephrectomy 76-year-old male with a history of kidney cancer, status post a radical nephrectomy for a very large renal mass, he is at high risk for recurrence for disease. He has an ultrasound that demonstrates a new mass in his left kidney which is relatively small. This could represent metastatic disease or a new tumor. Plan to get a CT scan of the chest abdomen and pelvis for full metastatic evaluation. Currently would recommend observation of the small left renal mass.
--- NOTE | 2017-09-03 07:38 | CT_ITS ---
STUDY: CT ABDOMEN AND PELVIS WITHOUT CONTRAST REASON FOR EXAM: Male, 76 years old. History of renal cell carcinoma and prior right nephrectomy. New left renal mass. RADIATION DOSAGE (If Supplied By Facility): CTDIvol = ( 20.19 ) mGy, DLP = ( 1826.82 ) mGycm TECHNIQUE: Transaxial images were obtained from the dome of the diaphragm to the symphysis pubis without oral contrast, and without intravenous contrast. Sagittal and coronal images were reconstructed. Individualized dose optimization techniques were used for this CT. COMPARISON: Comparison is made with prior examination dated November 14, 2016 and prior ultrasound examination dated September 02, 2017. FINDINGS: Small bilateral pleural effusions with underlying basilar atelectasis worse on the right side. Coronary artery calcifications. Calcification of the mitral valve annulus. Normal liver. Normal gallbladder and extrahepatic biliary system. There are multiple benign calcified granulomata of the spleen. Borderline splenomegaly. Normal pancreas. Normal bilateral adrenal glands. The patient is status post right nephrectomy. Normal left kidney. No left renal masses seen. Without intravenous contrast administration, the assessment is slightly limited. There is a mild degree of left perinephric stranding. Normal visualized stomach. Normal small intestine. There are scattered colonic diverticula consistent with diverticulosis. The appendix is visualized and appears normal. There is diffuse atherosclerotic calcification of the abdominal aorta and its major visceral branches, without a demonstrated aneurysm. Normal inferior vena cava. There is borderline retroperitoneal lymphadenopathy with enlarged nodes no greater than 10mm in the short axis diameter. Normal urinary bladder. There is enlargement of the prostate gland. It measures 5.8 cm x 5.7 cm. This causes indentation at the bladder base. There is a small umbilical hernia containing fat. There are mild degenerative changes of the visualized lumbar spine. CT/Abdomen/Pelvis without Cont IMPRESSION: Status post right nephrectomy. No definite mass lesion is seen in the left kidney although without intravenous contrast menstruation, the examination is limited. Prostatic enlargement. Electronically Signed: Marquis Luna MD at 9:04 EST Tel [phone], Service support ,
--- NOTE | 2017-09-03 07:38 | CT_ITS ---
STUDY: CT CHEST WITHOUT CONTRAST REASON FOR EXAM: Male, 76 years old. Renal cell carcinoma. Prior right nephrectomy. RADIATION DOSAGE (If Supplied By Facility): CTDIvol = ( 20.19 ) mGy, DLP = ( 1826.82 ) mGycm TECHNIQUE: Transaxial imaging was performed without the administration of intravenous contrast material. Multiplanar coronal and sagittal images were reformatted. Individualized dose optimization techniques were used for this CT. COMPARISON: None. FINDINGS: There is a 1.4 cm slightly ill-defined nodular densities in the posterior aspect of the right upper lobe as seen on axial image #29. There are small bilateral pleural effusions right greater than left with underlying infiltration and/or atelectasis. Sternal cerclage wires and vascular clips are present from a prior sternotomy and coronary artery bypass graft procedure (CABG). Coronary artery calcification. Calcification of the mitral valve. Cardiomegaly. There is evidence of enlarged mediastinal lymph nodes. There is also evidence of subcarinal adenopathy. Bilateral axillary lymph nodes worse on the left side. Normal hilar regions. Normal unenhanced pulmonary arteries. There is atherosclerotic calcification of the aortic arch with tortuosity and elongation of the aortic arch and descending thoracic aorta. There are multi-level degenerative changes of the thoracic spine. There is no demonstrated abnormality of the visualized upper abdomen. CT/Chest without Contrast IMPRESSION: Bilateral pleural effusions with bibasilar atelectasis and/or infiltration. 1.4 cm slightly ill-defined nodule in the posterior aspect of the right upper lobe. Electronically Signed: Marquis Luna MD at 9:38 EST Tel [phone], Service support ,
[2017-09-03 07:45] LABS: Hemoglobin A1c 5.4 % (4.2-6.3)
--- NOTE | 2017-09-03 08:14 | PCM.PN.SRG ---
Patient Problems: Active and Suspected Problems Left renal mass (Acute) Cancer of right kidney (Acute) Status post nephrectomy Subjective: Overnight the patient was moved to the PCU due to chest pain or shortness of breath. His EKG did show some changes so a troponin was checked and was mildly elevated. Dr. Uday jones this morning. This morning is complaining of no chest pain or shortness of breath. - Physical Exam General: Alert, Cooperative, No apparent distress Neck: No JVD Lungs: Normal air movement Cardiovascular: Regular rate, Regular Rhythm Vital Signs Temp Pulse Resp BP Pulse Ox 97.3 F L 83 20 H 159/77 H 94 09/03/17 06:03 09/03/17 06:57 09/03/17 06:03 09/03/17 06:03 09/03/17 06:03 Oxygen Flow Rate 2 Oxygen Delivery Method Room Air Weight: 205 lb Body Mass Index (BMI) 29.4 Finger Stick Blood Glucose 129 Intake and Output for Last 24 Hours 09/01/17 09/02/17 09/03/17 23:59 23:59 23:59 Intake Total 2621 / 2621 3235 / 3235 1171 / 1171 Output Total 1075 / 1075 3100 / 3100 900 / 900 Balance 1546 / 1546 135 / 135 271 / 271 Microbiology Past 72 Hours 08/31/17 09:50 Blood Culture - Preliminary Blood Culture (Wb) - Anticubital Left No growth in 48 hours. 08/28/17 12:40 Blood Culture - Final Blood Culture (Wb) - Anticubital Left No growth in 5 days. 08/29/17 Unknown Gram Stain - Final Biopsy - Tissue Wound Culture - Final Enterococcus faecalis Anaerobic Culture - Final No anaerobic bacteria isolated. 08/29/17 Unknown Gram Stain - Final Biopsy - Tissue Wound Culture - Final Enterococcus faecalis Anaerobic Culture - Final No anaerobic bacteria isolated. 08/29/17 Unknown Gram Stain - Final Biopsy - Tissue Wound Culture - Final Enterococcus faecalis Anaerobic Culture - Final No anaerobic bacteria isolated. 08/28/17 08:35 Gram Stain - Final Fluid - Synovial (joint) Body Fluid Culture - Final Enterococcus faecalis Anaerobic Culture - Final No anaerobic bacteria isolated. 08/29/17 13:50 Blood Culture - Preliminary Blood Culture (Wb) - Anticubital Left No growth in 48 hours. Laboratory Tests Past 24 Hrs 09/02/17 09/02/17 09/02/17 08:38 08:38 10:15 WBC 7.3 RBC 3.07 L Hgb 8.4 L Hct 26.2 L MCV 85.3 MCH 27.4 MCHC 32.1 RDW 16.4 H RDW Differential 51.0 H Plt Count 162 MPV 8.8 Immature Gran % (Auto) 0.300 Neut % (Auto) 76.9 H Lymph % (Auto) 11.5 L [place] % (Auto) 6.6 Eos % (Auto) 4.3 Baso % (Auto) 0.4 Absolute Neuts (auto) 5.6 Absolute Lymphs (auto) 0.84 Total Counted Not Reportable Eos Smear Total Cells Pending PT INR APTT Sodium 137 Potassium 4.2 Chloride 106 Carbon Dioxide 20.0 L Anion Gap 11 BUN 54 H Creatinine 3.45 H Estim Creat Clear Calc 18.81 Est GFR (MDRD) Af Amer 22 L Est GFR (MDRD) Non-Af 19 L BUN/Creatinine Ratio 15.7 Glucose 145 H Hemoglobin A1c Calcium 8.4 L Magnesium Total Bilirubin Direct Bilirubin AST ALT Alkaline Phosphatase Troponin I Total Protein Albumin Globulin Urine Color Urine Clarity Urine pH Ur Specific [place] Urine Protein Urine Glucose (UA) Urine Ketones Urine Occult Blood Urine Nitrite Urine Bilirubin Urine Urobilinogen Ur Leukocyte Esterase Urine RBC Urine WBC Ur Squamous Epith Cells Urine Bacteria Urine Mucus Ur Random Sodium Urine Creatinine Complement C3 09/02/17 09/02/17 09/02/17 10:15 10:15 10:15 WBC RBC Hgb Hct MCV MCH MCHC RDW RDW Differential Plt Count MPV Immature Gran % (Auto) Neut % (Auto) Lymph % (Auto) [place] % (Auto) Eos % (Auto) Baso % (Auto) Absolute Neuts (auto) Absolute Lymphs (auto) Total Counted Eos Smear Total Cells PT INR APTT Sodium Potassium Chloride Carbon Dioxide Anion Gap BUN Creatinine Estim Creat Clear Calc Est GFR (MDRD) Af Amer Est GFR (MDRD) Non-Af BUN/Creatinine Ratio Glucose Hemoglobin A1c Calcium Magnesium Total Bilirubin Direct Bilirubin AST ALT Alkaline Phosphatase Troponin I Total Protein Albumin Globulin Urine Color Straw Urine Clarity Clear Urine pH 5.0 Ur Specific [place] 1.010 Urine Protein 30 H Urine Glucose (UA) Normal Urine Ketones Negative Urine Occult Blood 10 H Urine Nitrite Negative Urine Bilirubin Negative Urine Urobilinogen Normal Ur Leukocyte Esterase Negative Urine RBC 0 SEEN Urine WBC 0 SEEN Ur Squamous Epith Cells 0 SEEN Urine Bacteria 0 SEEN Urine Mucus 0 SEEN Ur Random Sodium 48 Urine Creatinine 28.00 Complement C3 09/02/17 09/03/17 09/03/17 23:36 03:44 03:44 WBC 8.6 RBC 3.00 L Hgb 8.2 L Hct 26.0 L MCV 86.7 MCH 27.3 MCHC 31.5 L RDW 16.0 H RDW Differential 49.1 H Plt Count 220 MPV 8.7 Immature Gran % (Auto) 0.200 Neut % (Auto) 78.4 H Lymph % (Auto) 8.3 L [place] % (Auto) 9.1 Eos % (Auto) 3.8 Baso % (Auto) 0.2 Absolute Neuts (auto) 6.7 Absolute Lymphs (auto) 0.71 L Total Counted Not Reportable Eos Smear Total Cells PT INR APTT Sodium 137 Potassium 4.0 Chloride 105 Carbon Dioxide 20.0 L Anion Gap 12 BUN 54 H Creatinine 3.46 H Estim Creat Clear Calc 18.75 Est GFR (MDRD) Af Amer 22 L Est GFR (MDRD) Non-Af 18 L BUN/Creatinine Ratio 15.6 Glucose 135 H Hemoglobin A1c Calcium 8.4 L Magnesium Total Bilirubin Direct Bilirubin AST ALT Alkaline Phosphatase Troponin I 0.63 H* Total Protein Albumin Globulin Urine Color Urine Clarity Urine pH Ur Specific [place] Urine Protein Urine Glucose (UA) Urine Ketones Urine Occult Blood Urine Nitrite Urine Bilirubin Urine Urobilinogen Ur Leukocyte Esterase Urine RBC Urine WBC Ur Squamous Epith Cells Urine Bacteria Urine Mucus Ur Random Sodium Urine Creatinine Complement C3 09/03/17 09/03/17 09/03/17 03:44 03:44 03:44 WBC RBC Hgb Hct MCV MCH MCHC RDW RDW Differential Plt Count MPV Immature Gran % (Auto) Neut % (Auto) Lymph % (Auto) [place] % (Auto) Eos % (Auto) Baso % (Auto) Absolute Neuts (auto) Absolute Lymphs (auto) Total Counted Eos Smear Total Cells PT INR APTT Sodium Potassium Chloride Carbon Dioxide Anion Gap BUN Creatinine Estim Creat Clear Calc Est GFR (MDRD) Af Amer Est GFR (MDRD) Non-Af BUN/Creatinine Ratio Glucose Hemoglobin A1c Calcium Magnesium 2.0 Total Bilirubin 0.50 Direct Bilirubin 0.12 AST 16 ALT 21 Alkaline Phosphatase 86 Troponin I 0.59 H Total Protein 6.3 L Albumin 2.3 L Globulin 4.0 Urine Color Urine Clarity Urine pH Ur Specific [place] Urine Protein Urine Glucose (UA) Urine Ketones Urine Occult Blood Urine Nitrite Urine Bilirubin Urine Urobilinogen Ur Leukocyte Esterase Urine RBC Urine WBC Ur Squamous Epith Cells Urine Bacteria Urine Mucus Ur Random Sodium Urine Creatinine Complement C3 Pending 09/03/17 09/03/17 09/03/17 03:44 07:20 07:20 WBC RBC Hgb Hct MCV MCH MCHC RDW RDW Differential Plt Count MPV Immature Gran % (Auto) Neut % (Auto) Lymph % (Auto) [place] % (Auto) Eos % (Auto) Baso % (Auto) Absolute Neuts (auto) Absolute Lymphs (auto) Total Counted Eos Smear Total Cells PT Pending INR Pending APTT Pending Sodium Potassium Chloride Carbon Dioxide Anion Gap BUN Creatinine Estim Creat Clear Calc Est GFR (MDRD) Af Amer Est GFR (MDRD) Non-Af BUN/Creatinine Ratio Glucose Hemoglobin A1c 5.4 Calcium Magnesium Total Bilirubin Direct Bilirubin AST ALT Alkaline Phosphatase Troponin I 0.56 H Total Protein Albumin Globulin Urine Color Urine Clarity Urine pH Ur Specific [place] Urine Protein Urine Glucose (UA) Urine Ketones Urine Occult Blood Urine Nitrite Urine Bilirubin Urine Urobilinogen Ur Leukocyte Esterase Urine RBC Urine WBC Ur Squamous Epith Cells Urine Bacteria Urine Mucus Ur Random Sodium Urine Creatinine Complement C3 POC Glucose 09/03/17 09/02/17 09/02/17 06:41 22:17 16:04 POC Glucose 127 H 119 H 124 H 09/02/17 12:03 POC Glucose 160 H Assessment/Plan Active and Suspected Problems Left renal mass (Acute) Cancer of right kidney (Acute) Status post nephrectomy 76-year-old male with need for vascular access device for long-term antibiotics 1. The events overnight were noted. Dr. Frye saw him this morning and his opinion was that he was okay for port placement this morning. 2. I went over the procedure and the risks again with the patient and family and they are willing to proceed. We will place chest port this morning. I will leave it accessed for use immediately. Andreas Hernandez MD Pager: [facility] [address], [address] [place] [address] Office:
--- NOTE | 2017-09-03 08:23 | CON.PCM_ITS ---
Reason for Consult Date of Consultation: 09/03/17 Reason for Consultation: AbNormal cardiac enzymes. Preop cardiac evaluation History of Present Illness: The patient is a 76 year old M known history of coronary artery disease as well as aortic valve disease. He is status post coronary artery bypass surgery. He had a left internal mammary artery to the left anterior descending artery and a saphenous vein graft to diagonal vessel and a sequential saphenous vein graft to the posterior descending artery and posterolateral vessel.. He also had angioplasty and stenting of the right coronary artery. Also has a [place]- [employer] bioprosthetic aortic valve as well as hypertension. During his last visit to my office he appeared to be stable denying any chest pain or shortness of breath or paroxysmal nocturnal dyspnea. It appears that he was admitted this time with fever and was noted to have an abnormal blood culture which required a transesophageal echocardiogram to exclude endocarditis. Pressure he says has been fairly well controlled during this admission. Yesterday he developed an episode of chest discomfort which was heavy brief lasting radiating to his back not associated with any diaphoresis. An EKG was obtained which was noted to be minimally abnormal cardiac enzymes were obtained and this consultation was also obtained. He did have a history of enterococcus bacteremia likely from a knee source and he needs a vascular port placed for continuous IV access. Past Medical History Allergies/Adverse Reactions: Allergies losartan potassium [From Cozaar] Allergy (Severe, Verified 08/28/17 04:00) Other valsartan [From Diovan HCT] Allergy (Severe, Verified 08/28/17 04:00) Other amlodipine besylate [From Norvasc] Allergy (Verified 08/28/17 04:00) Other doxazosin mesylate [From Cardura] Allergy (Verified 08/28/17 04:00) Other furosemide [From Lasix] Allergy (Verified 08/28/17 04:00) Other hydrochlorothiazide Allergy (Verified 08/28/17 04:00) Other metoprolol succinate [From Toprol XL] Allergy (Verified 08/28/17 04:00) Other simvastatin Allergy (Verified 08/28/17 04:00) Other oxycodone [From OxyIR] Adverse Reaction (Verified 08/30/17 10:36) tremors Hydrogenated Vegetable Oil Adverse Reaction (Uncoded 08/28/17 04:00) Upset Stomach vicodin Adverse Reaction (Uncoded 08/27/17 11:44) Other Home Medications: Ambulatory Orders Medication Instructions Recorded Ascorbic Acid [Vitamin C] 1,000 mg PO DAILY@0800 02/06/16 Multivitamin [Daily Multiple 1 each PO DAILY 02/06/16 Vitamin] Nateglinide [Starlix] 30 mg PO TIDCM 02/06/16 Cholecalciferol (Vitamin D3) 2,000 unit PO DAILY 07/28/17 [Vitamin D3] Docusate Sodium [Colace] 100 mg PO DAILY 07/28/17 Iron Polysaccharide Complex 325 mg PO DAILYCM 07/28/17 [Ferrex 150] Labetalol [Trandate (Beta Jo)] 100 mg PO BID 07/28/17 Diltiazem HCl [Diltiazem ER] 180 mg PO BID 07/29/17 Past Medical History (Chronic Problems): Chronic Problems Hyperlipidemia (Chronic) Hypertension (Chronic) Osteoarthritis of left knee (Chronic) S/P CABG x 3 (Chronic) Triple bypass in July 2015 at [facility] in [place] CAD (coronary artery disease) (Chronic) Hypertension, essential (Chronic) DM2 (diabetes mellitus, type 2) (Chronic) Renal cell cancer (Chronic) S/P nephrectomy on January 13, 2016 at Chronic kidney disease (Chronic) Solitary kidney (Chronic) Aortic stenosis (Chronic) Surgical History: cataract, coronary bypass surgery - X 3., herniorrhaphy - Umbilical., - - Hemorrhoidectomy, aortic valve replacement (bovine), cardiac stent, right nephrectomy 01/15/2016. Psychiatric History: No pertinent psych hx - *Family History Sibling History Items: Diabetes Paternal History Items: No pertinent history Maternal History Items: Cancer - breast Lives: Spouse/ Significant Other Smoking Status: Former smoker Tobacco Use: Non-smoker Alcohol: None Drugs: None Review of Systems - Review of Systems General: Reports: Fatigue. Denies: Fever, Night Sweats Cardiovascular: Reports: Chest Discomfort at Rest. Denies: Chest Discomfort, Shortness of Breath, Orthopnea, PND, Peripheral Edema, Palpitations, Lightheadedness, Dizziness, Near Syncope, Syncope Respiratory: Denies: Cough, Sputum Production, Hemoptysis Gastrointestinal: Denies: Hematemesis, Hematochezia, Melena Genitourinary: Denies: Dysuria, Hematuria Skin: Denies: Rash Subjectve: Pleasant gentleman in no apparent distress Objective: Vital Signs Temp Pulse Resp BP Pulse Ox 97.3 F L 83 20 H 159/77 H 94 09/03/17 06:03 09/03/17 06:57 09/03/17 06:03 09/03/17 06:03 09/03/17 06:03 Oxygen Flow Rate 2 Oxygen Delivery Method Room Air Weight: 205 lb Body Mass Index (BMI) 29.4 Finger Stick Blood Glucose 129 Intake and Output for Last 24 Hours 09/01/17 09/02/17 09/03/17 23:59 23:59 23:59 Intake Total 2621 / 2621 3235 / 3235 1171 / 1171 Output Total 1075 / 1075 3100 / 3100 900 / 900 Balance 1546 / 1546 135 / 135 271 / 271 General: Awake, Alert, Oriented x 3 HEENT: PERRL, EOMI, Sclera Non Icteric Neck: Supple, Good ROM, No Lymph Node Enlargement Lungs: Clear to auscultation Cardiovascular: Regular Rhythm, Normal S1, Normal S2, No Rubs, No Gallops Murmur Murmur: Grade 3/6, Holosystolic, [place] Vascular: No Carotid Bruits, Normal Femoral Pulses, Normal Radial Pulses, Normal Dorsalis Pedal Pulse, Normal Posterior Tibial Pulses Abdomen: Bowel Sounds Present, Soft, Non Tender, No HSM, No Organomegaly Extremities: No Cyanosis, No Clubbing, No edema Neurological: No Focal Motor or Sensory Deficit 09/02/17 08:38: WBC 7.3, RBC 3.07 L, Hgb 8.4 L, Hct 26.2 L, MCV 85.3, MCH 27.4, MCHC 32.1, RDW 16.4 H, RDW Differential 51.0 H, Plt Count 162, MPV 8.8, Immature Gran % (Auto) 0.300, Neut % (Auto) 76.9 H, Lymph % (Auto) 11.5 L, [place] % (Auto) 6.6, Eos % (Auto) 4.3, Baso % (Auto) 0.4, Absolute Neuts (auto) 5.6, Total Counted Not Reportable 09/02/17 08:38: Sodium 137, Potassium 4.2, Chloride 106, Carbon Dioxide 20.0 L, Anion Gap 11, BUN 54 H, Creatinine 3.45 H, Est GFR (MDRD) Af Amer 22 L, Est GFR (MDRD) Non-Af 19 L, BUN/Creatinine Ratio 15.7, Glucose 145 H, Calcium 8.4 L 09/02/17 10:15: Urine Color Straw, Urine Clarity Clear, Urine pH 5.0, Ur Specific [place] 1.010, Urine Protein 30 H, Urine Glucose (UA) Normal, Urine Ketones Negative, Urine Occult Blood 10 H, Urine Nitrite Negative, Urine Bilirubin Negative, Urine Urobilinogen Normal, Ur Leukocyte Esterase Negative, Urine RBC 0 SEEN, Urine WBC 0 SEEN 09/02/17 23:36: Troponin I 0.63 H* 09/03/17 03:44: WBC 8.6, RBC 3.00 L, Hgb 8.2 L, Hct 26.0 L, MCV 86.7, MCH 27.3, MCHC 31.5 L, RDW 16.0 H, RDW Differential 49.1 H, Plt Count 220, MPV 8.7, Immature Gran % (Auto) 0.200, Neut % (Auto) 78.4 H, Lymph % (Auto) 8.3 L, [place] % (Auto) 9.1, Eos % (Auto) 3.8, Baso % (Auto) 0.2, Absolute Neuts (auto) 6.7, Total Counted Not Reportable 09/03/17 03:44: Sodium 137, Potassium 4.0, Chloride 105, Carbon Dioxide 20.0 L, Anion Gap 12, BUN 54 H, Creatinine 3.46 H, Est GFR (MDRD) Af Amer 22 L, Est GFR (MDRD) Non-Af 18 L, BUN/Creatinine Ratio 15.6, Glucose 135 H, Calcium 8.4 L 09/03/17 03:44: Troponin I 0.59 H 09/03/17 03:44: Magnesium 2.0, Total Bilirubin 0.50, Direct Bilirubin 0.12 09/03/17 03:44: Hemoglobin A1c 5.4 09/03/17 07:20: Troponin I 0.56 H Rhythm: EKG: Normal sinus rhythm with incomplete left bundle branch block ECHO: Preserved left ventricular systolic function with a stable bioprosthetic aortic valve and moderate to moderately severe mitral regurgitation. No evidence of valvular vegetation noted Assessment/Plan 1. Abnormal cardiac enzymes. He presents with mild chest discomfort and is noted to have abnormal cardiac enzymes with no acute EKG changes. He does have residual known coronary artery disease. However at this time it does not appear that with his renal dysfunction to be appropriate to pursue any further testing especially invasive agosto. My recommendation will be to continue to treat him with medical therapy with nitrates and aspirin and his combination beta-jo. I have explained to his as well as him that the intended procedure which is a port placement is fairly low risk and can be carried out under MAC. 2. Valvular heart disease Evidence of an aortic valve replacement which is stable by transthoracic as well as transfers echocardiogram twice in the last month. No vegetation was noted. He does however have moderate mitral regurgitation which at this time he does not appear to be a candidate to have mitral valve surgery. We will continue to monitor his fluid status. 3. Coronary artery disease Have known underlying coronary artery disease. I am once again the plan is to manage him expectantly with medical therapy. 4. Atrial fibrillation He appears to be maintaining sinus rhythm at this time he was anticoagulated and also noted to be on labetalol. His anticoagulation can be held pending the procedure. Thank you for allowing me to participate in the care of your patient. Please don't hesitate to call if any issues arise
--- NOTE | 2017-09-03 08:30 | PCM.PN.HOSP ---
Patient Problems: Active and Suspected Problems Left renal mass (Acute) Cancer of right kidney (Acute) Status post nephrectomy Encounter for adjustment or management of vascular access device (Acute) Subjective: Patient overnight with onset of chest discomfort with initial concern of EKG changes and initial cardiac enzyme elevated 0.63 although did trend down following, therefore patient transitioned to the PCU for closer monitoring and maintained on telemetry. Cardiology was made aware of patient and evaluation performed with clearance for operative intervention for port placement which was also relayed to the surgery service. Patient otherwise notes feeling improved, fatigued but otherwise performing therapies and improving daily from a discomfort extremity standpoint. Labs with patient and with with stability of renal dysfunction. Additionally ultrasound was reviewed with patient and family with abnormality found and suspected nodule with urology evaluation also performed and CT abdomen, pelvis and chest obtained. Patient denies fevers, chills, nausea, emesis, abdominal pain, recurrent onset chest pain. Objective: Physical Examination: General: awake, alert, oriented x 3, mildly fatigued appearance, seated upright, cooperative, NAD. Skin: normal color, turgor, no icterus, cyanosis except bilateral upper extremity ecchymoses, right knee with dressing and SAKINA wrap in place, no drainage noted. HEENT: AT/NC, EOMI, PERRLA, MMM. Lungs: CTA bilaterally, moderate effort, mild decrease BL bases, no rales, ronchi or wheezing. Heart: Regular rate and rhythm; no gallop, rub audible, s/p AVR. Abdomen: soft, overweight, NTTP, ND, normal BS. Extremities: no cyanosis, clubbing, s/p OR R knee dressing, ACEI in place, no drainage, distal pulses intact. Neurological: patient awake, alert, oriented x 3; cognitive function intact; pupils equally reactive to light and accomodation; cranial nerves II-XII grossly normal, moving all 4 extremities except expected limitation LLE, strength improving, mildly to moderately globally decreased. Psychiatric: affect appears normal, no acute evidence of depressive or anxiety feelings. Vitals/I&O's: Vital Signs Temp Pulse Resp BP Pulse Ox 97.3 F L 83 20 H 159/77 H 94 09/03/17 06:03 09/03/17 06:57 09/03/17 06:03 09/03/17 06:03 09/03/17 06:03 Oxygen Flow Rate 2 Oxygen Delivery Method Room Air Weight: 205 lb Body Mass Index (BMI) 29.4 Finger Stick Blood Glucose 129 Intake and Output for Last 24 Hours 09/01/17 09/02/17 09/03/17 23:59 23:59 23:59 Intake Total 2621 / 2621 3235 / 3235 1171 / 1171 Output Total 1075 / 1075 3100 / 3100 900 / 900 Balance 1546 / 1546 135 / 135 271 / 271 Microbiology Past 72 Hours 08/31/17 09:50 Blood Culture (Wb) - Anticubital Left Blood Culture - Preliminary No growth in 48 hours. 08/28/17 12:40 Blood Culture (Wb) - Anticubital Left Blood Culture - Final No growth in 5 days. 08/29/17 Unknown Biopsy - Tissue Gram Stain - Final 08/29/17 Unknown Biopsy - Tissue Wound Culture - Final Enterococcus faecalis 08/29/17 Unknown Biopsy - Tissue Anaerobic Culture - Final No anaerobic bacteria isolated. 08/29/17 Unknown Biopsy - Tissue Gram Stain - Final 08/29/17 Unknown Biopsy - Tissue Wound Culture - Final Enterococcus faecalis 08/29/17 Unknown Biopsy - Tissue Anaerobic Culture - Final No anaerobic bacteria isolated. 08/29/17 Unknown Biopsy - Tissue Gram Stain - Final 08/29/17 Unknown Biopsy - Tissue Wound Culture - Final Enterococcus faecalis 08/29/17 Unknown Biopsy - Tissue Anaerobic Culture - Final No anaerobic bacteria isolated. 08/28/17 08:35 Fluid - Synovial (joint) Gram Stain - Final 08/28/17 08:35 Fluid - Synovial (joint) Body Fluid Culture - Final Enterococcus faecalis 08/28/17 08:35 Fluid - Synovial (joint) Anaerobic Culture - Final No anaerobic bacteria isolated. 08/29/17 13:50 Blood Culture (Wb) - Anticubital Left Blood Culture - Preliminary No growth in 48 hours. Laboratory Results 09/02/17 08:38: WBC 7.3, RBC 3.07 L, Hgb 8.4 L, Hct 26.2 L, MCV 85.3, MCH 27.4, MCHC 32.1, RDW 16.4 H, RDW Differential 51.0 H, Plt Count 162, MPV 8.8, Immature Gran % (Auto) 0.300, Neut % (Auto) 76.9 H, Lymph % (Auto) 11.5 L, Petroleum % (Auto) 6.6, Eos % (Auto) 4.3, Baso % (Auto) 0.4, Absolute Neuts (auto) 5.6, Absolute Lymphs (auto) 0.84, Total Counted Not Reportable 09/02/17 08:38: Sodium 137, Potassium 4.2, Chloride 106, Carbon Dioxide 20.0 L, Anion Gap 11, BUN 54 H, Creatinine 3.45 H, Estim Creat Clear Calc 18.81, Est GFR (MDRD) Af Amer 22 L, Est GFR (MDRD) Non-Af 19 L, BUN/Creatinine Ratio 15.7, Glucose 145 H, Calcium 8.4 L 09/02/17 10:15: Eos Smear Total Cells Pending 09/02/17 10:15: Urine Creatinine 28.00 09/02/17 10:15: Ur Random Sodium 48 09/02/17 10:15: Urine Color Straw, Urine Clarity Clear, Urine pH 5.0, Ur Specific [place] 1.010, Urine Protein 30 H, Urine Glucose (UA) Normal, Urine Ketones Negative, Urine Occult Blood 10 H, Urine Nitrite Negative, Urine Bilirubin Negative, Urine Urobilinogen Normal, Ur Leukocyte Esterase Negative, Urine RBC 0 SEEN, Urine WBC 0 SEEN, Ur Squamous Epith Cells 0 SEEN, Urine Bacteria 0 SEEN, Urine Mucus 0 SEEN 09/02/17 12:03: POC Glucose 160 H 09/02/17 16:04: POC Glucose 124 H 09/02/17 22:17: POC Glucose 119 H 09/02/17 23:36: Troponin I 0.63 H* 09/03/17 03:44: WBC 8.6, RBC 3.00 L, Hgb 8.2 L, Hct 26.0 L, MCV 86.7, MCH 27.3, MCHC 31.5 L, RDW 16.0 H, RDW Differential 49.1 H, Plt Count 220, MPV 8.7, Immature Gran % (Auto) 0.200, Neut % (Auto) 78.4 H, Lymph % (Auto) 8.3 L, Petroleum % (Auto) 9.1, Eos % (Auto) 3.8, Baso % (Auto) 0.2, Absolute Neuts (auto) 6.7, Absolute Lymphs (auto) 0.71 L, Total Counted Not Reportable 09/03/17 03:44: Sodium 137, Potassium 4.0, Chloride 105, Carbon Dioxide 20.0 L, Anion Gap 12, BUN 54 H, Creatinine 3.46 H, Estim Creat Clear Calc 18.75, Est GFR (MDRD) Af Amer 22 L, Est GFR (MDRD) Non-Af 18 L, BUN/Creatinine Ratio 15.6, Glucose 135 H, Calcium 8.4 L 09/03/17 03:44: Complement C3 Pending 09/03/17 03:44: Troponin I 0.59 H 09/03/17 03:44: Magnesium 2.0, Total Bilirubin 0.50, Direct Bilirubin 0.12, AST 16, ALT 21, Alkaline Phosphatase 86, Total Protein 6.3 L, Albumin 2.3 L, Globulin 4.0 09/03/17 03:44: Hemoglobin A1c 5.4 09/03/17 06:41: POC Glucose 127 H 09/03/17 07:20: Troponin I 0.56 H 09/03/17 07:20: PT Pending, INR Pending, APTT Pending Current Medications Acetaminophen (Tylenol) 650 mg PO Q4H PRN PRN PRN Reason: FEVER Acetaminophen (Tylenol) 650 mg PO Q6H PRN PRN PRN Reason: PAIN Apixaban (Eliquis) 2.5 mg PO BID [facility] Last Admin: 09/01/17 09:41 Dose: 2.5 mg Ascorbic Acid (Vitamin C) 1,000 mg PO DAILY@0800 [facility] Last Admin: 09/02/17 08:02 Dose: 1,000 mg Bisacodyl (Dulcolax) 5 mg PO DAILY PRN PRN PRN Reason: Constipation Cholecalciferol (Vitamin D) 2,000 unit PO DAILY [facility] Last Admin: 09/02/17 10:53 Dose: 2,000 unit Dextrose (D50w Syringe) 0 gm IV X1 PRN; Protocol PRN Reason: Hypoglycemia Diltiazem HCl (Cardizem Cd) 180 mg PO BID [facility] Last Admin: 09/02/17 22:31 Dose: 180 mg Docusate Sodium (Colace) 100 mg PO DAILY [facility] Last Admin: 09/02/17 10:52 Dose: 100 mg Famotidine (Pepcid) 20 mg PO DAILY [facility] Last Admin: 09/02/17 10:53 Dose: 20 mg [facility]ous [facility]ate) [facility] Admin: 09/02/17 08:02 Dose: 325 mg Glucagon () 1 mg IM .X1 PRN PRN Reason: Hypoglycemia Hydromorphone HCl (Dilaudid) 1 mg IV Q4H PRN PRN PRN Reason: SEVERE PAIN (6-10/10) Last Admin: 08/30/17 18:26 Dose: 1 mg Ampicillin Sodium 2 gm/ Sodium (Chloride) 100 mls @ 150 mls/hr IV Q12 [facility] Last Admin: 09/02/17 22:30 Dose: 150 mls/hr Sodium Chloride () 1,000 mls @ 30 mls/hr IV .[id number] [facility] Insulin Aspart (Novolog Flexpen (Bkc)) 0 units SC ACHS [facility] PRN Reason: Protocol Last Admin: 09/03/17 07:16 Dose: Not Given Isosorbide Mononitrate (Imdur) 30 mg PO DAILY [facility] Labetalol HCl (Trandate) 100 mg PO BID [facility] Last Admin: 09/02/17 22:30 Dose: 100 mg Magnesium Hydroxide (Milk Of Magnesia) 30 ml PO DAILY PRN PRN PRN Reason: Constipation Morphine Sulfate (Morphine) 2 - 4 mg IV Q2H PRN PRN PRN Reason: SEVERE PAIN (6-10/10) Last Admin: 08/29/17 17:29 Dose: 4 mg [facility]ivitamins ([facility]ivitamin) [facility] Last Admin: 09/02/17 08:02 Dose: 1 tablet Nutritional Formula (Lactose Free) (Glucerna Shake) 120 ml PO TIDCM [facility] Last Admin: 09/02/17 17:06 Dose: 120 ml Ondansetron HCl (Zofran) 4 mg IV Q8H PRN PRN PRN Reason: NAUSEA Promethazine HCl (Phenergan (Ll)) 12.5 mg IM Q6H PRN PRN; Protocol PRN Reason: NAUSEA/VOMITING Senna/Docusate Sodium (Senokot-S, Lesia-Colace) 2 tablet PO BID [facility] Last Admin: 09/02/17 22:30 Dose: 2 tablet Sodium Chloride () 5 - 30 ml IV UD PRN PRN Reason: SALINE FLUSH Last Admin: 09/02/17 12:07 Dose: 10 ml Tramadol HCl (Ultram (G)) 50 - 100 mg PO Q12H PRN PRN Reason: MOD-SEVERE PAIN (4-10/10) Last Admin: 09/02/17 22:31 Dose: 50 mg Assessment/Plan Active and Suspected Problems Left renal mass (Acute) Cancer of right kidney (Acute) Status post nephrectomy Encounter for adjustment or management of vascular access device (Acute) The patient is a 76 y/o M w/ PMHx: CAD s/p CABG x 3, Valvular Heart Disease w Aortic Sclerosis, HTN, HLD, CKD stage IV w/ Solitary Kidney, AOCD/Fe deficiency anemia, Diabetes mellitus type II, Overweight who presents to the [facility] ED on 08/31/17 with recent history of enterococcal bacteremia of unclear etiology initially with now onset L knee pain, swelling with ED evaluation, aspiration performed w/ Cx obtained resulted + E. Faecalis. (1) Left knee periprosthetic infection w/ E. fecalis Septic Arthritis w/ E. Fecalis Bacteremia: Recent admission prior w/ + cultures, TIM performed which was unremarkable, completed 2 wk course ampicillin per ID recommendation, returned w/ L Knee pain, edema w/ ED aspiration w/ + Cx w/ E. fecalis. 08/29/[address] Bryant w/ I+D, complete synovectomy left knee, L knee polyethylene exchange 1 component revision w/ noted overt gross purulence in the OR, pending finalization from OR cultures, currently noting GP organism, GPC. Initially was placed on Vanc and Zosyn pending cultures-->08/27/17 Unasyn per ID. Bld Cx repeat currently negative, additional Cx 08/31/17 NGTD also. Repeat TIM 09/01/17 unremarkable. Planned Port placement 09/03/17 per discussion with Surgery, ID with Cardiology clearance given 09/02/17-09/03/17 onset chest pain and elevated trop (NSTEMI). Surgery noted clearance to restart eliquis in 24 hours from procedure. PT, OT, CM for discharge planning with plan for TCU placement following allowance for port placement, possible Thursday if improved, may need to wait further given renal function changes in addition to pending Urology consult as well as recent NSTEMI although deferred catheterization given current worsened renal status with medical treatment primarily. Given worsened renal status and decreased CrCl, d/c tramadol, notes tremors with opiates, currently better option. (2) Chest Pain w/ NSTEMI: EKG in ED w/ SR with LBBB, ? 1-4 elevations 1 mm overnight, cardiology reviewed and was not concerned, recent TIM as noted, transitioned from MS to PCU status overnight given onset chest pain, cardiac enzymes trended w/ 0.63-->0.59-->0.56, trending down, maintained on asa, BB, statin allergy. Cardiology evaluation performed, amenable to proceeding with port placement, advised medical therapy only especially given renal function not good candidate for catheterization at this time. ASA, NG, morphine. (3) VINOD on CKD stage IV w/ Solitary kidney w/ Hx renal cell carcinoma s/p R nephrectomy w/ Incidental left renal Nodule: VINOD on CKD likely secondary to ATN secondary to sepsis. Patient status post nephrectomy, admission BUN/Cr 58/3.39, 08/31/17 BUN/Cr 48/3.02, baseline appears 2.9, recent vanc regimen, transitioned to amp per ID. Deferred PICC given possible needs for future HD, planned port placement per Dr. Hernandez once assure Bld Cx without growth and TIM repeat unremarkable. Plan 09/03/17 port placement. 09/02/17 BUN/Cr 54/3.45, continued function trending upward and mild confusion noted per family. 09/01/17 UA not marked appearing. UCr 28, Tiarra 48, FeNa >1%, Urine eos pending per ID and Renal US obtained w/ evident status post right nephrectomy, 2.2?2?2.1 cm complex solid and cystic nodule in the lateral aspect of the midportion of the left kidney. Urology consulted given history of Renal CA s/p unilateral nephrectomy prior, given high risk for recurrent disease, CT chest, A/P obtained for metastatic evaluation w/ CT A/P with an status post right nephrectomy, no definitive mass lesion on left kidney although without IV contrast difficult examination, prostatic enlargement. CT Chest w/ bilateral pleural effusions with bibasilar atelectasis, 1.4 cm slightly ill-defined nodule in the posterior aspect of the right upper lobe. Current recommendation per Urology to observe small L renal mass. Complement C3 pending per Nephrology for evaluation of SBE. Given RUL findings will refer upon discharge to Pulmonary also for ongoing evaluation. (4) Encephalopathy, Agitation: Unclear etiology, possible secondary to #1, #3 versus abx with possible underlying chronic component. 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 Will continue treatment and evaluation as noted above. (5) Valvular Heart Disease: History of aortic valve stenosis status post aortic valve replacement with bioprosthetic material, TIM during recent admission stable appearing, no valvular vegetations noted. Noted splinter hemorrhage on his L 2nd toe per ID otherwise no signs endocarditis. Repeat Bld Cx now negative, discussed with ID and repeat TIM unremarkable thus no need for dual therapies. (6) Diabetes mellitus type II w/ Neuropathy: Held oral home regimen given renal fx changes, ADA diet until NPO status for 09/03/17 port placement, accu checks w/ ISS. (7) Acute on Chronic AOCD/Fe deficiency anemia: Admission Hgb 9.3, maintain on home Fe supplementation, trending CBC. 08/31/17 Hgb 7.5, given cardiac history transfusion 1 u PRBC w/ goal >/= 8 performed, 09/01/17 repeat Hgb 7.5, no change, given additional 1 u PRBC, 09/02/17 Hgb 8.4, 09/03/17 Hgb 8.2, stable. (8) CAD: s/p CABG, maintain on home regimen BB, not on statin secondary to allergy, ASA no listed outpatient from prior, ? thrombocytopenia history, changed xarelto to eliquis given renal fx with current hold for OR. (9) Hypertension: Continue home regimen including labetaolol, Cardizem, PRN hydralazine. (10) Hyperlipidemia: Statin allergy. (11) DVT Prophylaxis: SCDs, xarelto d/c given renal function, changed to eliquis which is currently held for OR 09/03/17 AM, Surgery noted allowable restart 24 hours. Code Visit Inpatient E&M: 56058 Subs Hosp L3
[2017-09-03 08:34] LABS: International Normalized Ratio 1.1; Prothrombin Time (Protime)PT. 14.3 SECONDS (11.7-14.9)
[2017-09-03 08:35] LABS: Partial Thromboplast Time 43.4 Seconds (24.1-36.2)
[2017-09-03] MEDS: Labetalol 100 MG Tablet PO ×2 (09:00→21:02)
[2017-09-03] MEDS: Isosorbide Mononitrate 30 MG Tablet PO (09:00)
[2017-09-03] MEDS: dilTIAZem CD 180 MG Capsule PO ×2 (09:00→21:02)
--- NOTE | 2017-09-03 09:44 | NURSING ---
Called report to Delmy JONES in [facility]
[2017-09-03] MEDS: Bupiv/Epi 0.5% Mpf 30 ML Vial (11:15)
--- NOTE | 2017-09-03 11:50 | RAD_ITS ---
STUDY: X-RAY CHEST REASON FOR EXAM: Male, 76 years old. Port placement. TECHNIQUE: Single AP portable view of the chest. COMPARISON: Comparison is made with prior study dated January 26, 2018. FINDINGS: EKG electrodes are seen. A right-sided portacatheter is in situ and the tip is at the junction of the superior vena cava and right atrium. There is evidence of vascular congestion and mild degree of CHF. Increased markings are seen at the lung bases worse on the right side suggestive of atelectasis. Follow-up is recommended. There is no demonstrated pleural abnormality. Sternal cerclage wires and vascular clips are present from a prior sternotomy and coronary artery bypass graft procedure (CABG). Normal mediastinum and coco. Normal visualized pulmonary arteries. There is atherosclerotic calcification of the aortic arch with tortuosity. Normal visualized thoracic spine. Normal visualized ribs, clavicles, and shoulders. There is no demonstrated abnormality of the visualized soft tissue structures of the upper abdomen. RAD/CXR for Line Placement IMPRESSION: Mild degree of CHF with right basilar atelectasis. The tip of the right-sided skyla catheter is at the junction of the superior vena cava and right atrium. Electronically Signed: Marquis Luna MD at 12:32 EST Tel [phone], Service support ,
--- NOTE | 2017-09-03 12:08 | OP.PCM_ITS ---
Problem List (1) Encounter for adjustment or management of vascular access device Status: Acute Report of Operation Date of Procedure: 09/03/17 Pre-Operative Diagnosis: Need for vascular access device long-term Post-Operative Diagnosis: Same Surgery/Procedure Performed:: Right chest port placement utilizing right IJ with ultrasound and fluoroscopy guidance Type of Anesthesia:: Local MAC Description of Procedure: After obtaining informed consent patient was brought back to the operating room MAC anesthesia was induced and the right chest and neck were prepped in normal sterile fashion. Ultrasound was used to evaluate both IJ is in the right IJ was selected. Next, using a needle, the right IJ was accessed and a guidewire was passed on into the superior vena cava under fluoroscopy guidance. A small incision was made over the puncture site and the dilator introducer was placed over the guidewire. Next this was capped and the pocket was made for the port. 1% lidocaine with epinephrine was injected in the proposed port site. An incision was made with scalpel. Electrocautery was used to make a pocket under the skin and subcutaneous tissue. Hemostasis was obtained. Next, the catheter was tunneled up to the neck incision site and placed through the introducer. The peel-away introducer was removed and the position of the catheter was confirmed on fluoroscopy. Next, the catheter was trimmed and attached to the port with the locking device. Interrupted 2-0 PDS were used to anchor the port to the chest wall and then the port was placed inside the pocket. The pocket was then flushed with saline and the port irrigated with saline. There was good blood return and the port flushed easily. Next, heparin was injected into the port. The skin was closed with subcutaneous interrupted 3-0 Vicryl sutures and interrupted skin 3-0 nylon sutures. A single 3-0 Vicryl sutures placed under the skin at the neck incision site. Steri-Strips were placed as well as op sites. Patient tolerated procedure well, was taken to PACU in stable condition. Chest x-ray will be obtained. Grafts/Implants Used: 8 [employer] - Admit VTE Documentation VTE Mechan Device Prophylaxis: SCD's
[2017-09-03 12:16] LABS: Bedside Glucose 122 mg/dL (70-110)
[2017-09-03] MEDS: Glucerna Shake 120 ML LIQUID PO ×2 (12:50→17:05)
[2017-09-03] MEDS: Senna/Docusate Sodium 1 Tablet 2 TABLET PO ×2 (12:50→21:02)
[2017-09-03] MEDS: Multivitamins,Therapeutic Tablet 1 TABLET PO (12:50)
[2017-09-03] MEDS: Ascorbic Acid 500 MG Tablet 1000 MG PO (12:50)
[2017-09-03] MEDS: Docusate Sodium 100 MG Capsule PO (12:50)
[2017-09-03] MEDS: Ferrous Sulfate 325 MG Tablet PO (12:50)
[2017-09-03] MEDS: Famotidine 20 MG Tablet PO (12:50)
[2017-09-03] MEDS: 0.9% Normal Saline 1,000 ML 30 ML IV (12:51)
[2017-09-03] MEDS: 0.9% NaCl Peripheral Flush Adult/Peds IV (14:26)
--- NOTE | 2017-09-03 15:58 | NURSING ---
1500 CALLED BECAUSE CAP OFF THE END OF LINE BLEEDING OUT, LOCK PER STAFF. PORT PUT IN TODAY. CALLED SURGICAL DR. HE STATED TO JUST CLEAN AND PUT ON NEW CAP. ATTEMPTED BUT LINE WAS CLOTTED OFF. REMOVED AND NEW 3/4 POWER PORT INSERTED, PT TOLERATED WELL FLUSHED EASILY WITH (+) BLOOD RETURN. FLUIDS RESUMED.
[2017-09-03 16:36] LABS: Bedside Glucose 174 mg/dL (70-110)
--- NOTE | 2017-09-03 18:04 | PN.RENAL_ITS ---
Patient Problems: Active and Suspected Problems Left renal mass (Acute) Cancer of right kidney (Acute) Status post nephrectomy Encounter for adjustment or management of vascular access device (Acute) Subjective: transferred to pcu for chest pain radiating to back last night. No further chest pain. Mediport placed for care home iv antibx for bacteremia, septic left knee. Hx AVR, CABG, rt nephrectomy with questionable left renal complex cyst/ mass. CT abdomen done w/o iv contrast due to CKD. Suboptimal exam. May need MRI at later date. Pt does not want aggressive mgmt at this time. Pt at bedside. Answered all her questions. - Physical Exam General: Alert, Oriented x3 Oral: Moist Mucosa Neck: Supple Lungs: Clear to auscultation, - - mediport rt chest wall Cardiovascular: Regular rate Abdomen: Bowel Sounds Present, Soft, Non Tender Extremities: No edema Skin: - - ecchymosis Psych/Mental Status: Alert and oriented to time, place, person, mood and affect Vital Signs Temp Pulse Resp BP Pulse Ox 98.3 F 78 18 157/83 H 92 09/03/17 17:02 09/03/17 17:02 09/03/17 17:02 09/03/17 17:02 09/03/17 17:02 Oxygen Flow Rate 2 Oxygen Delivery Method Room Air Weight: 92.986 kg Body Mass Index (BMI) 29.4 Finger Stick Blood Glucose 122 Intake and Output for Last 24 Hours 09/01/17 09/02/17 09/03/17 23:59 23:59 23:59 Intake Total 2621 / 2621 3235 / 3235 2137 / 2137 Output Total 1075 / 1075 3100 / 3100 1925 / 1925 Balance 1546 / 1546 135 / 135 212 / 212 Microbiology Past 72 Hours 08/29/17 13:50 Blood Culture - Final Blood Culture (Wb) - Anticubital Left No growth in 5 days. 08/31/17 09:50 Blood Culture - Preliminary Blood Culture (Wb) - Anticubital Left No growth in 48 hours. 08/28/17 12:40 Blood Culture - Final Blood Culture (Wb) - Anticubital Left No growth in 5 days. 08/29/17 Unknown Gram Stain - Final Biopsy - Tissue Wound Culture - Final Enterococcus faecalis Anaerobic Culture - Final No anaerobic bacteria isolated. 08/29/17 Unknown Gram Stain - Final Biopsy - Tissue Wound Culture - Final Enterococcus faecalis Anaerobic Culture - Final No anaerobic bacteria isolated. 08/29/17 Unknown Gram Stain - Final Biopsy - Tissue Wound Culture - Final Enterococcus faecalis Anaerobic Culture - Final No anaerobic bacteria isolated. 08/28/17 08:35 Gram Stain - Final Fluid - Synovial (joint) Body Fluid Culture - Final Enterococcus faecalis Anaerobic Culture - Final No anaerobic bacteria isolated. Laboratory Tests Past 24 Hrs 09/02/17 09/02/17 09/03/17 10:15 23:36 03:44 WBC 8.6 RBC 3.00 L Hgb 8.2 L Hct 26.0 L MCV 86.7 MCH 27.3 MCHC 31.5 L RDW 16.0 H RDW Differential 49.1 H Plt Count 220 MPV 8.7 Immature Gran % (Auto) 0.200 Neut % (Auto) 78.4 H Lymph % (Auto) 8.3 L [place] % (Auto) 9.1 Eos % (Auto) 3.8 Baso % (Auto) 0.2 Absolute Neuts (auto) 6.7 Absolute Lymphs (auto) 0.71 L Total Counted Not Reportable PT INR APTT Sodium Potassium Chloride Carbon Dioxide Anion Gap BUN Creatinine Estim Creat Clear Calc Est GFR (MDRD) Af Amer Est GFR (MDRD) Non-Af BUN/Creatinine Ratio Glucose Hemoglobin A1c Calcium Magnesium Total Bilirubin Direct Bilirubin AST ALT Alkaline Phosphatase Troponin I 0.63 H* Total Protein Albumin Globulin Urine Color Straw Urine Clarity Clear Urine pH 5.0 Ur Specific [place] 1.010 Urine Protein 30 H Urine Glucose (UA) Normal Urine Ketones Negative Urine Occult Blood 10 H Urine Nitrite Negative Urine Bilirubin Negative Urine Urobilinogen Normal Ur Leukocyte Esterase Negative Urine RBC 0 SEEN Urine WBC 0 SEEN Ur Squamous Epith Cells 0 SEEN Urine Bacteria 0 SEEN Urine Mucus 0 SEEN Complement C3 09/03/17 09/03/17 09/03/17 03:44 03:44 03:44 WBC RBC Hgb Hct MCV MCH MCHC RDW RDW Differential Plt Count MPV Immature Gran % (Auto) Neut % (Auto) Lymph % (Auto) [place] % (Auto) Eos % (Auto) Baso % (Auto) Absolute Neuts (auto) Absolute Lymphs (auto) Total Counted PT INR APTT Sodium 137 Potassium 4.0 Chloride 105 Carbon Dioxide 20.0 L Anion Gap 12 BUN 54 H Creatinine 3.46 H Estim Creat Clear Calc 18.75 Est GFR (MDRD) Af Amer 22 L Est GFR (MDRD) Non-Af 18 L BUN/Creatinine Ratio 15.6 Glucose 135 H Hemoglobin A1c Calcium 8.4 L Magnesium Total Bilirubin Direct Bilirubin AST ALT Alkaline Phosphatase Troponin I 0.59 H Total Protein Albumin Globulin Urine Color Urine Clarity Urine pH Ur Specific [place] Urine Protein Urine Glucose (UA) Urine Ketones Urine Occult Blood Urine Nitrite Urine Bilirubin Urine Urobilinogen Ur Leukocyte Esterase Urine RBC Urine WBC Ur Squamous Epith Cells Urine Bacteria Urine Mucus Complement C3 Pending 09/03/17 09/03/17 09/03/17 03:44 03:44 07:20 WBC RBC Hgb Hct MCV MCH MCHC RDW RDW Differential Plt Count MPV Immature Gran % (Auto) Neut % (Auto) Lymph % (Auto) Patrick % (Auto) Eos % (Auto) Baso % (Auto) Absolute Neuts (auto) Absolute Lymphs (auto) Total Counted PT INR APTT Sodium Potassium Chloride Carbon Dioxide Anion Gap BUN Creatinine Estim Creat Clear Calc Est GFR (MDRD) Af Amer Est GFR (MDRD) Non-Af BUN/Creatinine Ratio Glucose Hemoglobin A1c 5.4 Calcium Magnesium 2.0 Total Bilirubin 0.50 Direct Bilirubin 0.12 AST 16 ALT 21 Alkaline Phosphatase 86 Troponin I 0.56 H Total Protein 6.3 L Albumin 2.3 L Globulin 4.0 Urine Color Urine Clarity Urine pH Ur Specific [place] Urine Protein Urine Glucose (UA) Urine Ketones Urine Occult Blood Urine Nitrite Urine Bilirubin Urine Urobilinogen Ur Leukocyte Esterase Urine RBC Urine WBC Ur Squamous Epith Cells Urine Bacteria Urine Mucus Complement C3 09/03/17 09/03/17 07:20 13:05 WBC RBC Hgb Hct MCV MCH MCHC RDW RDW Differential Plt Count MPV Immature Gran % (Auto) Neut % (Auto) Lymph % (Auto) Patrick % (Auto) Eos % (Auto) Baso % (Auto) Absolute Neuts (auto) Absolute Lymphs (auto) Total Counted PT 14.3 INR 1.1 APTT 43.4 H Sodium Potassium Chloride Carbon Dioxide Anion Gap BUN Creatinine Estim Creat Clear Calc Est GFR (MDRD) Af Amer Est GFR (MDRD) Non-Af BUN/Creatinine Ratio Glucose Hemoglobin A1c Calcium Magnesium Total Bilirubin Direct Bilirubin AST ALT Alkaline Phosphatase Troponin I 0.54 H Total Protein Albumin Globulin Urine Color Urine Clarity Urine pH Ur Specific [place] Urine Protein Urine Glucose (UA) Urine Ketones Urine Occult Blood Urine Nitrite Urine Bilirubin Urine Urobilinogen Ur Leukocyte Esterase Urine RBC Urine WBC Ur Squamous Epith Cells Urine Bacteria Urine Mucus Complement C3 POC Glucose 09/03/17 09/03/17 09/03/17 16:29 12:10 06:41 POC Glucose 174 H 122 H 127 H 09/02/17 22:17 POC Glucose 119 H Assessment/Plan Active and Suspected Problems Left renal mass (Acute) Cancer of right kidney (Acute) Status post nephrectomy Encounter for adjustment or management of vascular access device (Acute) 1. 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 Currently no urgent need for dialysis, no uremic symptoms with stable volume status. 2. Recurrent bacteremia with enterococcus faecalis. Urine c/s have been negative in the past. 3. Hx AV replacement TIM negative for vegetation 4. Septic left knee s/p I/D 08/29. s/p TKA in September 2016. 5. CAD s/p CABG, afib. Episode of CP last night. Cardiology following. 6. DM2 stable, primary care mgmt 7. HTN stable 8. BPH asymptomatic 9. Renal cell cancer s/p rt nephrectomy January 2016 with complex solid, cystic mass in left kidney on US. CT abdomen done w/o contrast today. Consider MRI w/o contrast due to renal failure.
[2017-09-03] MEDS: Acetaminophen 325 MG Tablet 650 MG PO (21:54)
[2017-09-03 22:11] LABS: Bedside Glucose 162 mg/dL (70-110)
[2017-09-04] VITALS (10 sets, daily range): BP systolic 152–179; BP diastolic 75–93; PULSE 75–95; RESP 16–18; TEMP 36.3–36.9; O2SAT 92–95
--- NOTE | 2017-09-04 02:00 | NURSING ---
this RN called to room because pt pulled out IV & tubing running to port was broke & leaking blood. Disconnected tubing & assessed port site. Flushed with 10 cc NS & flushed well. charge nurse & Nursing electronic maintenance supervisor into assess. port dressing changed. Cleaned up patient and he is resting in bed. NS running @ 30 ml/hr. at bedside.
[2017-09-04] MEDS: 0.9% Normal Saline 1,000 ML 30 ML IV (02:17)
[2017-09-04] MEDS: 0.9% NaCl Peripheral Flush Adult/Peds IV (05:03)
[2017-09-04 05:43] LABS: Absolute Neutrophil Count 6.4 X10^3/uL (2.0-7.7); Basophil# 0.02 X10^3/uL; Basophil% 0.2 % (0-1); Eosinophil# 0.37 X10^3/uL; Eosinophils% 4.5 % (0-5); Hematocrit 26.2 % (40-54); Hemoglobin 8.4 g/dl (13.0-16.5); Lymphocyte % 8.5 % (19-41); Mean Corp Hgb Conc 32.1 g/gl (32-36); Mean Corpuscular Volume 87.3 fL (80-94); Mean Platelet Vol. 9.2 fl (6.2-12.0); Monocyte% 9.7 % (0-10); Neutrophil # 6.36 X10^3/uL (2.7-7.7); Neutrophil % 76.7 % (47-70); Platelet Count 244 K/mm3 (150-450); RBC Distribution Width CV 15.8 % (11.6-14.6); RBC Distribution Width SD 49.3 fl (35.1-43.9); White Blood Count 8.3 K/mm3 (4.4-11.0)
[2017-09-04 05:53] LABS: POSITIVE COUNT NO; POSITIVE DIFFERENTIAL NO; POSITIVE MORPHOLOGY NO
[2017-09-04 06:04] LABS: Anion Gap 11 (5-15); BUN 54 mg/dL (7-18); BUN/Creat Ratio 16.1 RATIO (10-20); Calcium,Total 8.7 mg/dL (8.5-10.1); Chloride 105 mmol/L (98-107); Creatinine, Serum 3.35 mg/dL (0.70-1.30); EST Glomerular Filtration Rate 19 mL/min (>60); Est Glom Filt Rate - Afr Amer 23 mL/min (>60); Estimated Creatinine Clearance 19.37 ml/min; Glucose 147 mg/dL (74-106); Sodium Level 137 mmol/L (136-145)
[2017-09-04 06:51] LABS: Bedside Glucose 140 mg/dL (70-110)
--- NOTE | 2017-09-04 07:52 | PCM.PN.SRG ---
Patient Problems: Active and Suspected Problems Left renal mass (Acute) Cancer of right kidney (Acute) Status post nephrectomy Encounter for adjustment or management of vascular access device (Acute) Subjective: Patient is doing well this morning and his port is being used currently. He is having no pain in the area. - Physical Exam Vital Signs Temp Pulse Resp BP Pulse Ox 98.1 F 85 18 152/93 H 93 09/04/17 06:46 09/04/17 06:46 09/04/17 06:46 09/04/17 06:46 09/04/17 06:46 Oxygen Flow Rate 2 Oxygen Delivery Method Room Air Weight: 205 lb Body Mass Index (BMI) 29.4 Finger Stick Blood Glucose 122 Intake and Output for Last 24 Hours 09/02/17 09/03/17 09/04/17 23:59 23:59 23:59 Intake Total 3235 / 3235 2427 / 2427 324 / 324 Output Total 3100 / 3100 2335 / 2335 750 / 750 Balance 135 / 135 92 / 92 -426 / -426 Microbiology Past 72 Hours 08/29/17 13:50 Blood Culture - Final Blood Culture (Wb) - Anticubital Left No growth in 5 days. 08/31/17 09:50 Blood Culture - Preliminary Blood Culture (Wb) - Anticubital Left No growth in 48 hours. 08/28/17 12:40 Blood Culture - Final Blood Culture (Wb) - Anticubital Left No growth in 5 days. 08/29/17 Unknown Gram Stain - Final Biopsy - Tissue Wound Culture - Final Enterococcus faecalis Anaerobic Culture - Final No anaerobic bacteria isolated. 08/29/17 Unknown Gram Stain - Final Biopsy - Tissue Wound Culture - Final Enterococcus faecalis Anaerobic Culture - Final No anaerobic bacteria isolated. 08/29/17 Unknown Gram Stain - Final Biopsy - Tissue Wound Culture - Final Enterococcus faecalis Anaerobic Culture - Final No anaerobic bacteria isolated. 08/28/17 08:35 Gram Stain - Final Fluid - Synovial (joint) Body Fluid Culture - Final Enterococcus faecalis Anaerobic Culture - Final No anaerobic bacteria isolated. Laboratory Tests Past 24 Hrs 09/03/17 09/03/17 09/03/17 07:20 07:20 13:05 WBC RBC Hgb Hct MCV MCH MCHC RDW RDW Differential Plt Count MPV Immature Gran % (Auto) Neut % (Auto) Lymph % (Auto) [place] % (Auto) Eos % (Auto) Baso % (Auto) Absolute Neuts (auto) Absolute Lymphs (auto) Total Counted PT 14.3 INR 1.1 APTT 43.4 H Sodium Potassium Chloride Carbon Dioxide Anion Gap BUN Creatinine Estim Creat Clear Calc Est GFR (MDRD) Af Amer Est GFR (MDRD) Non-Af BUN/Creatinine Ratio Glucose Calcium Troponin I 0.56 H 0.54 H 09/04/17 09/04/17 05:00 05:00 WBC 8.3 RBC 3.00 L Hgb 8.4 L Hct 26.2 L MCV 87.3 MCH 28.0 MCHC 32.1 RDW 15.8 H RDW Differential 49.3 H Plt Count 244 MPV 9.2 Immature Gran % (Auto) 0.400 Neut % (Auto) 76.7 H Lymph % (Auto) 8.5 L [place] % (Auto) 9.7 Eos % (Auto) 4.5 Baso % (Auto) 0.2 Absolute Neuts (auto) 6.4 Absolute Lymphs (auto) 0.70 L Total Counted Not Reportable PT INR APTT Sodium 137 Potassium 4.0 Chloride 105 Carbon Dioxide 21.0 Anion Gap 11 BUN 54 H Creatinine 3.35 H Estim Creat Clear Calc 19.37 Est GFR (MDRD) Af Amer 23 L Est GFR (MDRD) Non-Af 19 L BUN/Creatinine Ratio 16.1 Glucose 147 H Calcium 8.7 Troponin I POC Glucose 09/04/17 09/03/17 09/03/17 06:39 21:01 16:29 POC Glucose 140 H 162 H 174 H 09/03/17 12:10 POC Glucose 122 H Assessment/Plan Active and Suspected Problems Left renal mass (Acute) Cancer of right kidney (Acute) Status post nephrectomy Encounter for adjustment or management of vascular access device (Acute) 76-year-old male status post right chest port placement 1. The patient's right chest port is currently being used. He is tolerating infusion well and the area looks clean dry and intact with some ecchymosis but no swelling. 2. Okay to resume oral anticoagulation this evening. 3. I gave the patient my card and asked his to call me when they are done using the port so we can schedule port removal. I will sign off please call with any questions or concerns. Andreas Hernandez MD Pager: [facility] [address], [facility] [address] [place] [address] Office:
[2017-09-04] MEDS: Isosorbide Mononitrate 30 MG Tablet PO ×2 (09:35→14:01)
[2017-09-04] MEDS: Ascorbic Acid 500 MG Tablet 1000 MG PO (09:35)
[2017-09-04] MEDS: Famotidine 20 MG Tablet PO (09:35)
[2017-09-04] MEDS: Docusate Sodium 100 MG Capsule PO (09:35)
[2017-09-04] MEDS: Senna/Docusate Sodium 1 Tablet 2 TABLET PO (09:35)
[2017-09-04] MEDS: dilTIAZem CD 180 MG Capsule PO (09:35)
[2017-09-04] MEDS: Labetalol 100 MG Tablet PO (09:35)
[2017-09-04] MEDS: Multivitamins,Therapeutic Tablet 1 TABLET PO (09:36)
[2017-09-04] MEDS: Ferrous Sulfate 325 MG Tablet PO (09:36)
[2017-09-04] MEDS: Glucerna Shake 120 ML LIQUID PO ×2 (09:40→11:32)
--- NOTE | 2017-09-04 11:07 | MRI_ITS ---
STUDY: MRI BRAIN WITHOUT CONTRAST REASON FOR EXAM: Male, 76 years old. Altered mental status. Patient has had periods of confusion. TECHNIQUE: Standardized multiplanar fat and water weighted pulse sequences were obtained. Several images are limited by patient motion. COMPARISON: None. FINDINGS: There is mild cerebral atrophy with widening of the extra-axial spaces and ventricular dilatation. There are a limited number of small white matter hyperintensities, distributed throughout the deep white matter tracts of the cerebral hemispheres, consistent with mild chronic white matter ischemic changes. There is confluent periventricular hyperintensity cloaking the lateral ventricles, consistent with periventricular leukoaraiosis. There is no evidence for recent intracranial ischemia or other cause of cytotoxic edema on diffusion weighted imaging (DWI). Normal T2* images of the brain without demonstrated susceptibility artifact. There is no demonstrated hemosiderin stain. There are prominent perivascular spaces (PVS) involving the basal ganglia. Normal thalami. There is no extra-axial fluid accumulation. Normal flow voids within the major intracranial circulation suggesting patency by spin echo criteria. Normal sella turcica, pituitary gland, infundibular stalk, optic chiasm and hypothalamus. Normal tectal plate and pineal gland. Normal midbrain, kirby and medulla. 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 There are large basal cisterns. Normal bilateral temporal bones. Normal bilateral internal auditory canals. There are bilateral ocular lens implants with otherwise normal intraorbital contents. There is a opacification of several anterior right-sided ethmoid sinuses. The there is moderate mucoperiosteal thickening in the right maxillary sinus. Normal calvarium and skull base. Normal visualized soft tissue structures. There are degenerative changes of the anterior atlantoaxial articulation. MRI/Brain without Contrast IMPRESSION: 1. Involutional changes of the brain, as described above. 2. Technically limited study due to patient motion. 3. No MR evidence for acute infarct. Electronically Signed: Fabby Narayanan MD at 13:16 EST , Service support ,
--- NOTE | 2017-09-04 11:26 | PCM.PN.ID ---
Patient Problems: Active and Suspected Problems Left renal mass (Acute) Cancer of right kidney (Acute) Status post nephrectomy Encounter for adjustment or management of vascular access device (Acute) Subjective: Feeling better. concerned about intermittent confusion; he tried to pull port out last night. No fever. No problems with TIM. No n/v/d. - Physical Exam General: Alert, Oriented x3, Cooperative, No apparent distress Lungs: Clear to auscultation, Normal air movement Cardiovascular: Irregular Rate, Murmur Abdomen: Soft, Non Tender, Non-Distended Skin: No rashes, Incision - L knee wrapped Vital Signs Temp Pulse Resp BP Pulse Ox 97.7 F L 95 16 179/79 H 95 09/04/17 09:33 09/04/17 10:59 09/04/17 09:33 09/04/17 09:33 09/04/17 09:33 Oxygen Flow Rate 2 Oxygen Delivery Method Room Air Weight: 92.986 kg Body Mass Index (BMI) 29.4 Finger Stick Blood Glucose 122 Intake and Output for Last 24 Hours 09/02/17 09/03/17 09/04/17 23:59 23:59 23:59 Intake Total 3235 / 3235 2427 / 2427 324 / 324 Output Total 3100 / 3100 2335 / 2335 750 / 750 Balance 135 / 135 92 / 92 -426 / -426 Microbiology Past 72 Hours 09/02/17 10:15 Urine Culture - Preliminary Urine, Clean Catch Culture exhibits no growth. 08/29/17 13:50 Blood Culture - Final Blood Culture (Wb) - Anticubital Left No growth in 5 days. 08/31/17 09:50 Blood Culture - Preliminary Blood Culture (Wb) - Anticubital Left No growth in 48 hours. 08/28/17 12:40 Blood Culture - Final Blood Culture (Wb) - Anticubital Left No growth in 5 days. 08/29/17 Unknown Gram Stain - Final Biopsy - Tissue Wound Culture - Final Enterococcus faecalis Anaerobic Culture - Final No anaerobic bacteria isolated. 08/29/17 Unknown Gram Stain - Final Biopsy - Tissue Wound Culture - Final Enterococcus faecalis Anaerobic Culture - Final No anaerobic bacteria isolated. 08/29/17 Unknown Gram Stain - Final Biopsy - Tissue Wound Culture - Final Enterococcus faecalis Anaerobic Culture - Final No anaerobic bacteria isolated. 08/28/17 08:35 Gram Stain - Final Fluid - Synovial (joint) Body Fluid Culture - Final Enterococcus faecalis Anaerobic Culture - Final No anaerobic bacteria isolated. Laboratory Tests Past 24 Hrs 09/03/17 09/04/17 09/04/17 13:05 05:00 05:00 WBC 8.3 RBC 3.00 L Hgb 8.4 L Hct 26.2 L MCV 87.3 MCH 28.0 MCHC 32.1 RDW 15.8 H RDW Differential 49.3 H Plt Count 244 MPV 9.2 Immature Gran % (Auto) 0.400 Neut % (Auto) 76.7 H Lymph % (Auto) 8.5 L [place] % (Auto) 9.7 Eos % (Auto) 4.5 Baso % (Auto) 0.2 Absolute Neuts (auto) 6.4 Absolute Lymphs (auto) 0.70 L Total Counted Not Reportable Sodium 137 Potassium 4.0 Chloride 105 Carbon Dioxide 21.0 Anion Gap 11 BUN 54 H Creatinine 3.35 H Estim Creat Clear Calc 19.37 Est GFR (MDRD) Af Amer 23 L Est GFR (MDRD) Non-Af 19 L BUN/Creatinine Ratio 16.1 Glucose 147 H Calcium 8.7 Troponin I 0.54 H POC Glucose 09/04/17 09/03/17 09/03/17 06:39 21:01 16:29 POC Glucose 140 H 162 H 174 H 09/03/17 12:10 POC Glucose 122 H Route of nutrition/ use of supplements: [] Nutritional Intake: [] IV Site: [] Irving Catheter: [] - Assessment/Plan Antibiotics: [] Assessment/Plan: [] Active and Suspected Problems Septic arthritis (Acute) Bacteremia due to Enterococcus (Acute) 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 Has h/o CKD and bioprosthetic AVR - repeat bcx neg since 08/29. Taken to OR 08/[address] Bryant for debridement with poly exchange. Has splinter hemorrhage on L 2nd toe, no other signs of endocarditis. Port placed. TIM with no veg seen. Continue ampicillin iv, stop date 10/10/17 for 6 week course. After that, will need long course of po abx. Weekly bmp, cbc, and esr while on iv abx. VINOD on CKD - neph following. Pending urine eos. Cr slightly improved today. D/w watch case polisher, will follow him in TCU
[2017-09-04] MEDS: Acetaminophen 325 MG Tablet 650 MG PO (11:32)
[2017-09-04 11:35] LABS: Eosinophil Ct. Urine No Eosinophils Seen % (.)
--- NOTE | 2017-09-04 12:14 | PCM.PN.REN ---
Patient Problems: Active and Suspected Problems Left renal mass (Acute) Cancer of right kidney (Acute) Status post nephrectomy Encounter for adjustment or management of vascular access device (Acute) Subjective: Denies any nausea or vomiting. Appetite poor. Denies any shortness of breath. No further chest pain episodes. He has no lower extremity edema. Denies any urinary complaints. Creatinine slightly improved today at 3.35, at bedside. Disposition to TCU. - Physical Exam General: Alert, Oriented x3, Cooperative, No apparent distress Oral: Moist Mucosa Lungs: Clear to auscultation Cardiovascular: Regular rate, Murmur Abdomen: Bowel Sounds Present, Soft, Non Tender, Non-Distended Extremities: No edema Skin: No rashes Psych/Mental Status: Normal Affect, Appropriate, Alert and oriented to time, place, person, mood and affect Vital Signs Temp Pulse Resp BP Pulse Ox 97.7 F L 95 16 179/79 H 95 09/04/17 09:33 09/04/17 10:59 09/04/17 09:33 09/04/17 09:33 09/04/17 09:33 Oxygen Flow Rate 2 Oxygen Delivery Method Room Air Weight: 92.986 kg Body Mass Index (BMI) 29.4 Finger Stick Blood Glucose 122 Intake and Output for Last 24 Hours 09/02/17 09/03/17 09/04/17 23:59 23:59 23:59 Intake Total 3235 / 3235 2427 / 2427 1048 / 1048 Output Total 3100 / 3100 2335 / 2335 1300 / 1300 Balance 135 / 135 92 / 92 -252 / -252 Microbiology Past 72 Hours 09/02/17 10:15 Urine Culture - Preliminary Urine, Clean Catch Culture exhibits no growth. 08/29/17 13:50 Blood Culture - Final Blood Culture (Wb) - Anticubital Left No growth in 5 days. 08/31/17 09:50 Blood Culture - Preliminary Blood Culture (Wb) - Anticubital Left No growth in 48 hours. 08/28/17 12:40 Blood Culture - Final Blood Culture (Wb) - Anticubital Left No growth in 5 days. 08/29/17 Unknown Gram Stain - Final Biopsy - Tissue Wound Culture - Final Enterococcus faecalis Anaerobic Culture - Final No anaerobic bacteria isolated. 08/29/17 Unknown Gram Stain - Final Biopsy - Tissue Wound Culture - Final Enterococcus faecalis Anaerobic Culture - Final No anaerobic bacteria isolated. 08/29/17 Unknown Gram Stain - Final Biopsy - Tissue Wound Culture - Final Enterococcus faecalis Anaerobic Culture - Final No anaerobic bacteria isolated. 08/28/17 08:35 Gram Stain - Final Fluid - Synovial (joint) Body Fluid Culture - Final Enterococcus faecalis Anaerobic Culture - Final No anaerobic bacteria isolated. Laboratory Tests Past 24 Hrs 09/02/17 09/03/17 09/04/17 10:15 13:05 05:00 WBC 8.3 RBC 3.00 L Hgb 8.4 L Hct 26.2 L MCV 87.3 MCH 28.0 MCHC 32.1 RDW 15.8 H RDW Differential 49.3 H Plt Count 244 MPV 9.2 Immature Gran % (Auto) 0.400 Neut % (Auto) 76.7 H Lymph % (Auto) 8.5 L [place] % (Auto) 9.7 Eos % (Auto) 4.5 Baso % (Auto) 0.2 Absolute Neuts (auto) 6.4 Absolute Lymphs (auto) 0.70 L Total Counted Not Reportable Eos Smear Total Cells No Eosinophils Seen Sodium Potassium Chloride Carbon Dioxide Anion Gap BUN Creatinine Estim Creat Clear Calc Est GFR (MDRD) Af Amer Est GFR (MDRD) Non-Af BUN/Creatinine Ratio Glucose Calcium Troponin I 0.54 H 09/04/17 05:00 WBC RBC Hgb Hct MCV MCH MCHC RDW RDW Differential Plt Count MPV Immature Gran % (Auto) Neut % (Auto) Lymph % (Auto) [place] % (Auto) Eos % (Auto) Baso % (Auto) Absolute Neuts (auto) Absolute Lymphs (auto) Total Counted Eos Smear Total Cells Sodium 137 Potassium 4.0 Chloride 105 Carbon Dioxide 21.0 Anion Gap 11 BUN 54 H Creatinine 3.35 H Estim Creat Clear Calc 19.37 Est GFR (MDRD) Af Amer 23 L Est GFR (MDRD) Non-Af 19 L BUN/Creatinine Ratio 16.1 Glucose 147 H Calcium 8.7 Troponin I POC Glucose 09/04/17 09/03/17 09/03/17 06:39 21:01 16:29 POC Glucose 140 H 162 H 174 H 09/03/17 12:10 POC Glucose 122 H Assessment/Plan Active and Suspected Problems Left renal mass (Acute) Cancer of right kidney (Acute) Status post nephrectomy Encounter for adjustment or management of vascular access device (Acute) 1. 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 Currently no urgent need for dialysis 2. Recurrent bacteremia with enterococcus faecalis. Urine c/s have been negative in the past. 3. Hx AV replacement TIM negative for vegetation 4. Septic left knee s/p I/D 08/29. s/p TKA in September 2016. 5. CAD s/p CABG, afib. 6. DM2 stable, primary care mgmt 7. HTN stable 8. BPH asymptomatic 9. Renal cell cancer s/p rt nephrectomy January 2016 with complex solid, cystic mass in left kidney on US. CT abdomen done w/o contrast today did not show mass. Consider MRI w/o contrast due to renal failure at a later time. Follow up with as outpt.
[2017-09-04 12:16] LABS: Bedside Glucose 173 mg/dL (70-110)
--- NOTE | 2017-09-04 13:17 | PCM.DC.SUM ---
Discharge Date and Diagnosis - Problem List Patient Problems: Active and Suspected Problems Left renal mass (Acute) Cancer of right kidney (Acute) Status post nephrectomy Encounter for adjustment or management of vascular access device (Acute) Encephalopathy (Acute) Suspected secondary to narcotic therapy. Date of Admission: 08/28/17 Date of Discharge: 09/04/17 - Primary Discharge Diagnosis Active and Suspected Problems (1) Left knee periprosthetic infection w/ E. fecalis Septic Arthritis w/ E. Fecalis Bacteremia (2) Chest Pain w/ NSTEMI (3) VINOD on CKD stage IV w/ Solitary kidney w/ Hx renal cell carcinoma s/p R nephrectomy w/ Incidental left renal Nodule (4) Encephalopathy, Agitation, secondary to #1, #2, #3 and narcotic therapy (MRI Brain unremarkable) (5) Valvular Heart Disease (6) Diabetes mellitus type II w/ Neuropathy (7) Acute on Chronic AOCD/Fe deficiency anemia w/ PRBC administration (8) CAD s/p CABG (9) Hypertension (10) Hyperlipidemia - Secondary Discharge Diagnosis Chronic Problems Hyperlipidemia (Chronic) Hypertension (Chronic) Osteoarthritis of left knee (Chronic) S/P CABG x 3 (Chronic) Triple bypass in July 2015 at [facility] CAD (coronary artery disease) (Chronic) Hypertension, essential (Chronic) DM2 (diabetes mellitus, type 2) (Chronic) Renal cell cancer (Chronic) S/P nephrectomy on January 13, 2016 at Chronic kidney disease (Chronic) Solitary kidney (Chronic) Aortic stenosis (Chronic) Hospital Course and Treatment Imaging Results: 09/04/17 11:07 MRI Brain [Brain without Contrast] [MRI] Stat Cardiology Dr. Uday Pino Urology Dr. Dominguez, Dr. Bryant Orthopedic surgery Dr. Hernandez Surgery Dr. Pollock Nephrology Operations: - - 09/03/[address] Hernandez, 08/29/[address] Bryant w/ I+D, complete synovectomy left knee, L knee polyethylene exchange 1 component revision. Procedures: - - EKG, 2-D ECHO, TIM, PRBC administration (2u total) Summary of Care Provided: The patient is a 76 y/o M w/ PMHx: CAD s/p CABG x 3, Valvular Heart Disease w Aortic Sclerosis, HTN, HLD, CKD stage IV w/ Solitary Kidney, AOCD/Fe deficiency anemia, Diabetes mellitus type II, Overweight who presented to the [facility] ED on 08/31/17 with recent history of enterococcal bacteremia of unclear etiology initially with now onset L knee pain, swelling with ED evaluation, aspiration performed w/ Cx obtained resulted + E. Faecalis. Recent admission prior w/ + cultures, TIM performed which was unremarkable, completed 2 wk course ampicillin per ID recommendation, returned w/ L Knee pain, edema w/ ED aspiration w/ + Cx w/ E. fecalis. 08/29/[address] Bryant w/ I+D, complete synovectomy left knee, L knee polyethylene exchange 1 component revision w/ noted overt gross purulence in the OR, pending finalization from OR cultures, currently noting GP organism, GPC. Initially was placed on Vanc and Zosyn pending cultures-->08/27/17 Unasyn per ID. Bld Cx repeat upon admission negative and repeat Cx 08/31/17 NGTD also. Repeat TIM 09/01/17 unremarkable. Port placement 09/03/17 per General Surgery with Cardiology clearance given 09/02/17-09/03/17 as during admission onset chest pain and elevated trop (NSTEMI). Surgery noted clearance to restart eliquis in 24 hours from procedure. During admission as noted chest pain onset, resolved, EKG in ED w/ SR with LBBB, ? 1-4 elevations 1 mm overnight, cardiology reviewed and was not concerned, recent TIM as noted, transitioned from MS to PCU status given onset chest pain, cardiac enzymes trended w/ 0.63-->0.59-->0.56, trended down, maintained on eliquis, BB, statin allergy. Cardiology evaluation performed, amenable to port placement, advised medical therapy only especially given renal function not good candidate for catheterization at this time with follow-up in the office. Planned continuation of eliquis per Orthopedic surgery direction for DVT Prophylaxis s/p operative intervention but once transition off recommended restart ASA therapy. During admission VINOD on CKD stage IV w/ Solitary kidney w/ Hx renal cell carcinoma s/p R nephrectomy w/ Incidental left renal Nodule likely secondary to ATN secondary to sepsis. Patient status post nephrectomy, admission BUN/Cr 58/3.39, 08/31/17 BUN/Cr 48/3.02, baseline appeared 2.9. Deferred PICC given possible needs for future HD, port placement per Dr. Hernandez. Upon TCU transition 09/04/17 BUN/Cr 54/3.35. Additional work-up included UA not marked appearing, UCr 28, Tiarra 48, FeNa >1%, Urine eos pending at discharge, Renal US w/ evident status post right nephrectomy, 2.2?2?2.1 cm complex solid and cystic nodule in the lateral aspect of the midportion of the left kidney. Urology consulted given history of Renal CA s/p unilateral nephrectomy prior, given high risk for recurrent disease, CT chest, A/P obtained for metastatic evaluation w/ CT A/P with an status post right nephrectomy, no definitive mass lesion on left kidney although without IV contrast difficult examination, prostatic enlargement. CT Chest w/ bilateral pleural effusions with bibasilar atelectasis, 1.4 cm slightly ill-defined nodule in the posterior aspect of the right upper lobe. Recommendation per Urology to observe small L renal mass with follow-up with Urology as well as Pulmonary to follow lung nodule. Nephrology also consulted and followed during admission with upon discharge pending Complement C3 pending for evaluation of SBE. During admission patient with Encephalopathy, Agitation felt secondary to his sepsis, VINOD on CKD, NSTEMI in addition to narcotic therapy with MRI brain obtained and negative for acute findings. Admission Hgb 9.3, maintained on home Fe supplementation, trended CBC, 08/31/17 Hgb 7.5, given cardiac history transfusion 1 u PRBC w/ goal >/= 8 performed, 09/01/17 repeat Hgb 7.5, no change, given additional 1 u PRBC, 09/02/17 Hgb 8.4, 09/04/17 Hgb 8.4, stable. Patient discharged to TCU in stable condition with aggressive follow-up with all consultants and his PCP. Upon TCU transition he did have noted minimal blood on the tissue while blowing nose, thus upon TCU transition noted intention for continued close observation of this and hold on restart eliquis post-port as needed. DAY OF DISCHARGE PROGRESS NOTE: Subjective: Patient without acute event overnight per self and nursing report aside again mild agitation and confusion which improved. Patient denies fever, chills, nausea, emesis, abdominal pain, chest pain or dyspnea. Patient notes tolerating therapy well. Patient agreeable to discharge to TCU. Discussed with following unremarkable MRI Brain as patient w/. intermittent confusion and agitation and now alerted that narcotic therapy causes not only mild tremor in patient but confusion, possible etiology aside his sepsis, VINOD, NSTEMI. Allergy list requested to RN to be updated to demonstrate the severity of intolerance. Patient will be discharged with follow-up with all consultants as noted. Objective: T 98.4, HR 76, BP 160/75, RR 16, 95% on RA. Physical Examination: General: awake, alert, oriented to self, place, recent events, seated upright in the bedside chair, cooperative, NAD. Skin: normal color, turgor, no icterus, cyanosis except bilateral upper extremity ecchymoses, right knee with dressing and AFSHIN wrap in place, no drainage noted. HEENT: AT/NC, EOMI, PERRLA, MMM. Lungs: CTA bilaterally, moderate effort, mild decrease BL bases, no rales, ronchi or wheezing. Heart: Regular rate and rhythm; no gallop, rub audible, s/p AVR. Abdomen: soft, overweight, NTTP, ND, normal BS. Extremities: no cyanosis, clubbing, s/p OR R knee dressing, ACEI in place, no drainage, distal pulses intact. Neurological: patient awake, alert, oriented as noted; cognitive function improved, confusion and agitation intermittent primarily during the evenings; pupils equally reactive to light and accomodation; cranial nerves II-XII grossly normal, moving all 4 extremities except expected limitation LLE, strength improving, mildly to moderately globally decreased. Psychiatric: affect appears normal, no acute evidence of depressive or anxiety feelings. Assessment and Plan: Please see hospital summary above. Home Medications: Medications to take at Discharge Ascorbic Acid [Vitamin C] 1,000 mg PO DAILY@0800 02/06/16 Multivitamin [Daily Multiple Vitamin] 1 each PO DAILY 02/06/16 Cholecalciferol (Vitamin D3) [Vitamin D3] 2,000 unit PO DAILY 07/28/17 Iron Polysaccharide Complex [Ferrex 150] 325 mg PO DAILYCM 07/28/17 Labetalol [Trandate (Beta Liz)] 100 mg PO BID 07/28/17 Diltiazem HCl [Diltiazem ER] 180 mg PO BID 07/29/17 Acetaminophen [Tylenol Tablet] 650 mg PO Q4H PRN PRN tablet 09/04/17 Ampicillin [Omnipen-N] 2 gm IV Q12 vial 09/04/17 Apixaban [Eliquis] 2.5 mg PO BID tablet 09/04/17 Bisacodyl [Dulcolax] 5 mg PO DAILY PRN PRN tablet 09/04/17 Glucerna Shake 120 ml PO TIDCM liquid 09/04/17 Insulin Aspart [Novolog Flexpen] See Protocol SC ACHS flexpen 09/04/17 Isosorbide Mononitrate [Imdur] 60 mg PO DAILY tablet 09/04/17 Senna/Docusate Sodium [Senokot-S] 2 tablet PO BID tablet 09/04/17 Primary Care Physician: Dejuan Catherine DO [Primary Care Provider] - Disposition: Intermediate facility Minutes spent on discharge:: 35 Patient Condition:: Fair Meaningful Use Info Meaningful Use Diagnoses (Choose all that apply): AMI - AMI Aspirin given w/in 24hrs of arrival?: Yes ASA at discharge?: No Reason ASA not ordered:: Coumadin rx at discharge - Eliquis rx at discharge, restart asa once stopped eliquis. Statins at discharge?: Yes Afshin/ARB at discharge?: No Reason Afshin/ARB not ordered:: Worsening renal disease Beta Liz at discharge?: Yes Done w/ Acute OH measure.: Yes Code Visit Inpatient E&M: 56401 Disch Hosp
[2017-09-04 13:21] LABS: Complement C3 133 mg/dL (82-167)
--- NOTE | 2017-09-04 13:24 | PCM.TXEXTCAR ---
- Diet 09/03/17 12:05 Diet: Calorie Controlled Is pt able to select menu?: Yes Diet Comments: May have sip water w/ medications How many daily calories?: 1800 calorie Encourage continued supplementation with TID ensure also. - Routine Orders/Code Status Enema Type: Fleetz Enema Frequency: Daily PRN Suppository Type: Dulcolax 10mg Suppository Frequency: Daily PRN Keep PO Greater than or Equal to (%): 92 Routine Lab Work: - - Weekly bmp, cbc, and esr while on iv abx and results to be relayed to Dr. Alvarado ID. Code Status: Full Code - Wound(s) LEFT KNEE Wound Type: Surgical Incision Dressing Change: mepilex AG RT CHEST Wound Type: Surgical Incision Dressing Change: Dry Sterile Dressing - Suggestions for Active Care Change Position every (hours): 2 Hours to sit in a chair: 6 Times a day to sit in chair: 3 - Therapies Weight Bearing: Weight bearing as tolerated Physical Therapy: Eval and Treat Occupational Therapy: Eval and Treat - Problem/Diagnosis (1) Left renal mass Status: Acute Current Visit: Yes (2) Septic arthritis Status: Acute Current Visit: No (3) Hyperlipidemia Status: Chronic Current Visit: No (4) Hypertension Status: Chronic Current Visit: No (5) Osteoarthritis of left knee Status: Chronic Current Visit: No (6) S/P CABG x 3 Status: Chronic Comment: Triple bypass in July 2015 at [facility] Current Visit: No (7) CAD (coronary artery disease) Status: Chronic Current Visit: No (8) Hypertension, essential Status: Chronic Current Visit: No (9) DM2 (diabetes mellitus, type 2) Status: Chronic Current Visit: No (10) Bacteremia due to Enterococcus Status: Acute Current Visit: No (11) Chronic kidney disease Status: Chronic Current Visit: No (12) Solitary kidney Status: Chronic Current Visit: No (13) Aortic stenosis Status: Chronic Current Visit: No (14) VINOD (acute kidney injury) Status: Acute Current Visit: No (15) Encephalopathy Status: Acute Comment: Suspected secondary to narcotic therapy. Current Visit: Yes - Allergies/Procedures Done in Hospital Allergies/Adverse Reactions: Allergies losartan potassium [From Cozaar] Allergy (Severe, Verified 08/28/17 04:00) Other valsartan [From Diovan HCT] Allergy (Severe, Verified 08/28/17 04:00) Other amlodipine besylate [From Norvasc] Allergy (Verified 08/28/17 04:00) Other doxazosin mesylate [From Cardura] Allergy (Verified 08/28/17 04:00) Other furosemide [From Lasix] Allergy (Verified 08/28/17 04:00) Other hydrochlorothiazide Allergy (Verified 08/28/17 04:00) Other metoprolol succinate [From Toprol XL] Allergy (Verified 08/28/17 04:00) Other simvastatin Allergy (Verified 08/28/17 04:00) Other oxycodone [From OxyIR] Adverse Reaction (Verified 08/30/17 10:36) tremors Hydrogenated Vegetable Oil Adverse Reaction (Uncoded 08/28/17 04:00) Upset Stomach vicodin Adverse Reaction (Uncoded 08/27/17 11:44) Other Procedures: 2-D Echocardiogram, EKG, Transesophageal Echo, - - 09/03/[address] Hernandez, 08/29/[address] Bryant w/ I+D, complete synovectomy left knee, L knee polyethylene exchange 1 component revision. - Type of Care/Length of Stay Estimated LOS: Convalescent Care Less Than 30 days Type of Care Needed: Skilled Rehab Potential: Good Prognosis: Good - Additional Orders/Day of Discharge Additional Orders: (1) HOB. (2) IS 10x/hr 7a-7p. (3) 3 AM noted blood on tissue, planned restart Eliquis 09/04/17 PM per surgery clearance, closely monitor and if bleeding hold eliquis. (4) Confusion while inpatient, unremarkable work-up included normal MRI brain without CVA evidence. Suspected likely to Narcotic therapy. Patient SEVERE INTOLERANCE TO Hydrocodone, Codone products with confusion, thus AVOID these products. (5) Fall precautions. (6) LLE dressing changes and care per Orthopedic surgery direction. (7) Continue routine port care per protocol. H&P will serve as current which was dated: 08/28/17 Day of Discharge: 09/04/17 - Dietary and Speech Recommendations Dietitian Recommendations/Changes: Recommend 1800 calorie controlled, cardiac, low sodium diet. - Follow Up Care Primary Care Physician: Dejuan Catherine DO [Primary Care Provider] - Please follow up with your Primary Care Physician in: Follow-up within 3-5 days to review admission. Please Follow Up With: Uche Alvarado MD When: Follow-up as needed, will follow in TCU. Please Follow Up With: Haroldo Bryant MD When: Follow-up 1 week. Please Follow Up With: Ravi Frye MD When: Follow-up 1-2 weeks, may see FIXTURE MAKER/PA in the office. Please Follow Up With: Adrien Pino MD When: Follow-up 1-2 weeks. Please Follow Up With: Abram Encarnacion DO When: Follow-up to follow/eval right lung nodule within 1-2 weeks, may see FIXTURE MAKER/PA. Please Follow Up With: Sushma Pollock DO When: While in TCU,continue to have Dr. Pollock evaluate,upon SNF d/c f/u w/ his Neph
== END 2017-09-04 15:45 | disposition skilled nursing facility (03) | DRG 485 ==
LOC: ED 04:45 → MS3 04:51 → PCU 09-03 00:21
PROVIDERS: Anesthesiology; Internal Medicine; Internal Medicine Infectious Disease; Internal Medicine Nephrology; Orthopaedic Surgery; Specialist; Surgery; Admitting Provider Internal Medicine; Emergency Provider Emergency Medicine; Family Provider Family Medicine; PCP Family Medicine; Visit Provider Family Medicine
PROC: 0SUW09Z Supplement Left Knee Joint, Tibial Surface with Liner, Open Approach (ICD-10-PCS; CPT 27487; principal; 2017-08-29 07:10)
PROC: 0JH60XZ Insertion of Tunneled Vascular Access Device into Chest Subcutaneous Tissue and Fascia, Open Approach (ICD-10-PCS; principal; 2017-09-03 10:30)
DX: T84.54XA Infection and inflammatory reaction due to internal left knee prosthesis, initial encounter (principal); A41.81 Sepsis due to Enterococcus; I21.4 Non-ST elevation (NSTEMI) myocardial infarction; N17.0 Acute kidney failure with tubular necrosis; G93.40 Encephalopathy, unspecified; M00.862 Arthritis due to other bacteria, left knee; N18.4 Chronic kidney disease, stage 4 (severe); E11.22 Type 2 diabetes mellitus with diabetic chronic kidney disease; D63.8 Anemia in other chronic diseases classified elsewhere; I25.10 Atherosclerotic heart disease of native coronary artery without angina pectoris; I12.9 Hypertensive chronic kidney disease with stage 1 through stage 4 chronic kidney disease, or unspecified chronic kidney disease; E78.5 Hyperlipidemia, unspecified; Z96.652 Presence of left artificial knee joint; B95.2 Enterococcus as the cause of diseases classified elsewhere; D50.9 Iron deficiency anemia, unspecified; N40.0 Benign prostatic hyperplasia without lower urinary tract symptoms; Z95.1 Presence of aortocoronary bypass graft; Z90.5 Acquired absence of kidney; Z95.3 Presence of xenogenic heart valve; Z87.891 Personal history of nicotine dependence; Z85.528 Personal history of other malignant neoplasm of kidney
CPT/HCPCS: 36415; 70551; 71045; 71250; 73562; 74176; 76770; 77001; 80048; 80053; 80076; 81001; 82570; 82962; 83036; 83605; 83735; 84100; 84300; 84484; 84550; 85014; 85018; 85025; 85027; 85610; 85652; 85730; 86140; 86160; 86850; 86900; 86920; 86922; 87015; 87040; 87070; 87075; 87077; 87086; 87102; 87116; 87149; 87186; 87205; 87206; 89050; 89051; 93005; 93306; 93312; 93320; 93325; 97110; 97116; 97161; 97165; 97530; 99251; 99283; J7030; J7040; J7050; J7120; P9016; A4216; C1788; C8929; G0463; J3260

== ENCOUNTER 2017-09-04 16:04 | Inpatient (IN) | payer MEDICARE, OTHER, SELFPAY ==
[2017-09-04 16:20] VITALS: BP 142/74; PULSE 74; RESP 18; TEMP 36.7; O2SAT 94
[2017-09-04 16:23] VITALS: BMI 30.9
[2017-09-04 16:29] VITALS: BMI 30.9
[2017-09-04 17:36] LABS: Bedside Glucose 143 mg/dL (70-110)
[2017-09-04] MEDS: Labetalol 100 MG Tablet PO (18:58)
[2017-09-04] MEDS: APIXABAN 2.5 MG TABLET PO (18:59)
[2017-09-04] MEDS: Glucerna Shake 120 ML LIQUID PO (19:03)
[2017-09-04 21:06] LABS: Bedside Glucose 182 mg/dL (70-110)
--- NOTE | 2017-09-04 21:33 | HP.PCM_ITS ---
Problem List (1) Sepsis Status: Acute (2) Septic joint of left knee joint Status: Acute (3) Diabetes mellitus Status: Chronic (4) Hyperlipidemia Status: Chronic Qualifiers: Hyperlipidemia type: unspecified Qualified Code(s): E78.5 - Hyperlipidemia , unspecified (5) Hypertension Status: Chronic (6) CAD (coronary artery disease) Status: Chronic Qualifiers: Coronary Disease-Associated Artery/Lesion type: unspecified vessel or lesion type (7) Renal cell cancer Status: Chronic Comment: S/P nephrectomy on January 13, 2016 at (8) Bacteremia due to Enterococcus Status: Acute (9) Chronic kidney disease Status: Chronic Qualifiers: Chronic kidney disease stage: stage 4 (severe) Qualified Code(s): N18.4 - Chronic kidney disease, stage 4 (severe) (10) Solitary kidney Status: Chronic (11) Aortic stenosis Status: Chronic Qualifiers: Cardiac valve disease etiology: etiology unspecified Qualified Code(s): I35.0 - Nonrheumatic aortic (valve) stenosis History of Present Illness Date of Admission: 09/04/17 Chief Complaint: Here for rehabilitation, strengthening, intravenous antibiotics , prior to discharge home with spouse. The patient is a 76 year old Male with below past medical history presented to [facility] Emergency Department 08/28/2017 with abnormal lab tests. 08/27/2017 X-ray left knee showed soft tissue swelling, joint effusion. Abnormal blood cultures. Pain left knee 1 year status post total knee arthroplasty. Blood cultures grew gram positive cocci, rods. Fever, pain, swelling left knee. Recent infection requiring prolonged course of antibiotics. Vancomycin given. 08/28/2017 Admit to Hospital. 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 Home on Ampicillin IV x 2 weeks. IV Vancomycin, IV Zosyn, IV fluids for left septic knee. 08/28/2017 Echo moderate dilated left ventricle. EF 65% Left atrium severely dilated Right ventricular systolic pressure 45mm HG Moderate pulmonary hypertension Moderate Aortic stenosis 08/29/2017 EKG normal sinus rhythm, incomplete left bundle branch block, prolonged QT. 08/28/2017 Dr. Alvarado recommended surgical debridement with arthroplasty. Continue Vancomycin, Narrow Zosyn to Ampicillin. 08/29/2017 Dr. Bryant performed irrigation debridement, complete synovectomy left knee, left knee polyethylene exchanged 1 component revision. 09/01/2017 TIM no vegetations. 09/02/2017 Dr. Pollock recommended no dialysis, order C3 to evaluate for subacute bacterial endocarditis. 09/02/2017 Renal ultrasound status post right nephrectomy, left complex kidney cyst noted. 09/03/2017 Dr. Frye recommended medical therapy for NSTEMI. 09/03/2017 CT abdomen/pelvis status post right nephrectomy, no left kidney mass noted without contrast. 09/03/2017 Dr. Hernandez right chest port placement. 09/04/2017 MRI brain showed involutional changes of brain. Anemia transfused 2 units PRBC. 09/04/2017 Admit to TCU for rehabilitation, strengthening, intravenous antibiotics , prior to discharge home with spouse. Past Medical History Past Medical History (Chronic Problems): Chronic Problems Diabetes mellitus (Chronic) Hyperlipidemia (Chronic) Hypertension (Chronic) Osteoarthritis of left knee (Chronic) S/P CABG x 3 (Chronic) Triple bypass in July 2015 at [facility] in [place] CAD (coronary artery disease) (Chronic) Hypertension, essential (Chronic) DM2 (diabetes mellitus, type 2) (Chronic) Renal cell cancer (Chronic) S/P nephrectomy on January 13, 2016 at Chronic kidney disease (Chronic) Solitary kidney (Chronic) Aortic stenosis (Chronic) Allergies losartan potassium [From Cozaar] Allergy (Severe, Verified 08/28/17 04:00) Other valsartan [From Diovan HCT] Allergy (Severe, Verified 08/28/17 04:00) Other amlodipine besylate [From Norvasc] Allergy (Verified 08/28/17 04:00) Other doxazosin mesylate [From Cardura] Allergy (Verified 08/28/17 04:00) Other furosemide [From Lasix] Allergy (Verified 08/28/17 04:00) Other hydrochlorothiazide Allergy (Verified 08/28/17 04:00) Other metoprolol succinate [From Toprol XL] Allergy (Verified 08/28/17 04:00) Other simvastatin Allergy (Verified 08/28/17 04:00) Other oxycodone [From OxyIR] Adverse Reaction (Severe, Verified 09/04/17 13:52) tremors SEVERE CONFUSION vicodin Adverse Reaction (Severe, Uncoded 09/04/17 13:52) Other SEVERE CONFUSION Hydrogenated Vegetable Oil Adverse Reaction (Uncoded 08/28/17 04:00) Upset Stomach Home Medications: Ambulatory Orders Medication Instructions Recorded Ascorbic Acid [Vitamin C] 1,000 mg PO DAILY@0800 08//16 Multivitamin [Daily Multiple 1 each PO DAILY 02/06/16 Vitamin] Cholecalciferol (Vitamin D3) 2,000 unit PO DAILY 07/28/17 [Vitamin D3] Iron Polysaccharide Complex 325 mg PO DAILYCM 07/28/17 [Ferrex 150] Labetalol [Trandate (Beta Liz)] 100 mg PO BID 07/28/17 Diltiazem HCl [Diltiazem ER] 180 mg PO BID 07/29/17 Acetaminophen [Tylenol Tablet] 650 mg PO Q4H PRN PRN tablet 09/04/17 Ampicillin [Omnipen-N] 2 gm IV Q12 09/04/17 Apixaban [Eliquis] 2.5 mg PO BID 09/04/17 Bisacodyl [Dulcolax] 5 mg PO DAILY PRN PRN tablet 09/04/17 Glucerna Shake 120 ml PO TIDCM 09/04/17 Insulin Aspart [Novolog Flexpen] See Protocol SC ACHS 09/04/17 Isosorbide Mononitrate [Imdur] 60 mg PO DAILY 09/04/17 Senna/Docusate Sodium [Senokot-S] 2 tablet PO BID 09/04/17 Surgical History: cataract, coronary bypass surgery - X 3., herniorrhaphy - Umbilical., total knee arthroplasty - Left., - - Hemorrhoidectomy, aortic valve replacement (bovine), cardiac stent, right nephrectomy 01/15/2016. Psychiatric History: No pertinent psych hx Lives: Spouse/ Significant Other Smoking Status: Former smoker Tobacco Use: Non-smoker Alcohol: None Drugs: None - *Family History Sibling History Items: Diabetes Paternal History Items: No pertinent history Maternal History Items: Cancer - breast Review of Systems Constitutional: Denies: Chills, Fever, Weight Change HEENT: Denies: Head Aches, Sinus Congestion, Sinus Drainage Cardiovascular: Denies: Chest Pain, Palpitations Respiratory: Denies: Cough, Shortness of breath at rest, Sputum production Gastrointestinal: Denies: Abdominal Pain, Nausea, Vomiting Genitourinary: Denies: Dysuria Musculoskeletal: Denies: Joint Pain, Joint Tenderness Skin: Denies: Rash, Wounds Neurological: Denies: Numbness, Tingling, Focal weakness Psychiatric: Denies: Anxiety, Depression, Homicidal Ideations, Suicidal Ideations Hematologic/ Lymphatic: Denies: Easy Bruising, Easy Bleeding VTE Information - Inpt Only VTE Present on Admission: No VTE Mechan Device Prophylaxis: Knee High JUANA Hose VTE Pharm Prophylaxis ordered?: No Reason prophylaxis not ordered:: Treatment Not Indicated Patient Problems: Active and Suspected Problems Sepsis (Acute) Septic joint of left knee joint (Acute) - Physical Exam General: Alert, Oriented x3, Cooperative HEENT: Atraumatic, PERRLA, EOMI, Normocephalic Neck: Supple, No JVD, Negative Carotid Bruits Lungs: Clear to auscultation, Normal air movement Cardiovascular: Regular rate, No murmurs Abdomen: Bowel Sounds Present, Soft, Non Tender Extremities: No edema, Capillary Refill Less than 3 Seconds Skin: No rashes, No breakdown, Incision - Left knee clean, dry, intact. Musculoskeletal: No Tenderness to Palpation of Joints or Extremities Neurological: Cranial nerves II-XII grossly intact Psych/Mental Status: Normal Affect, Appropriate Vital Signs Temp Pulse Resp BP Pulse Ox 98.0 F 74 18 142/74 H 94 09/04/17 16:20 09/04/17 16:20 09/04/17 16:20 09/04/17 16:20 09/04/17 16:20 Oxygen Delivery Method Room Air Weight: 97.6 kg Body Mass Index (BMI) 30.9 Finger Stick Blood Glucose 122 Intake and Output for Last 24 Hours 09/02/17 09/03/17 09/04/17 23:59 23:59 23:59 Intake Total 480 / 480 Balance 480 / 480 POC Glucose 09/04/17 09/04/17 21:01 17:31 POC Glucose 182 H 143 H Assessment/Plan Active and Suspected Problems Sepsis (Acute) Septic joint of left knee joint (Acute) 76 year old male with below past medical history hospitalized for sepsis secondary to 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 Bryant, complicated by NSTEMI, acute on chronic kidney failure, anemia, encephalopathy, admitted to TCU with debility, for rehabilitation, strengthening, intravenous antibiotics, prior to discharge home with spouse. * Debility - PT/OT. * Pain - Tylenol 1000MG Q8H PRN mild pain. * Bowel - Miralax 17GM daily, Senna/colace 2 tablets BID, Dulcolax 10MG KS daily PRN, Golytely 1 liter PO x 1 dose. * Pneumonia vaccination - Administer Prevnar 13 and/or Pneumovax 23 as necessary. * DVT prophylaxis - Not necessary, already on Eliquis 2.5MG BID. 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 Alvarado following. * Atrial Fibrillation - Labetalol 100MG BID, Diltiazem 180MG BID, Eliquis 2.5MG BID. * Vitamin C deficiency - Vitamin C 1000MG daily. * Vitamin D deficiency - Vitamin D3 2000IU daily. * Nutrition - Glucerna shake 120ML TID, MVI daily. * Diabetes Mellitus II - Monitor sugars. * Iron deficiency anemia - Ferrex 150MG daily. * Coronary Artery Disease - Labetalol 100MG BID, Isosorbide Mononitrate 60G daily.
[2017-09-04] MEDS: dilTIAZem CD 180 MG Capsule PO (22:25)
[2017-09-04] MEDS: 0.9% NaCl IVPB Med Flush (250 mL) 15 ML IV (22:44)
[2017-09-04] MEDS: 0.9% NaCl VAD Flush 10 ML IV (22:54)
[2017-09-05] MEDS: Acetaminophen 500 MG Tablet 1000 MG PO (00:46)
[2017-09-05] MEDS: 0.9% NaCl VAD Flush 10 ML IV ×2 (05:56→19:55)
[2017-09-05] MEDS: Senna/Docusate Sodium 1 Tablet 2 TABLET PO (05:59)
[2017-09-05] MEDS: dilTIAZem CD 180 MG Capsule PO ×2 (06:00→17:29)
[2017-09-05] MEDS: APIXABAN 2.5 MG TABLET PO (06:00)
[2017-09-05] MEDS: Labetalol 100 MG Tablet PO ×2 (06:00→17:29)
[2017-09-05] MEDS: Isosorbide Mononitrate 60 MG Tablet PO (06:01)
[2017-09-05] MEDS: Polyethylene Glycol 3350 17 GM PACKET PO (06:01)
[2017-09-05 06:35] LABS: Absolute Lymphocyte Count 0.87 X10^3/ul (0.83-4.51); Absolute Neutrophil Count 4.6 X10^3/uL (2.0-7.7); Basophil# 0.02 X10^3/uL; Basophil% 0.3 % (0-1); Hematocrit 23.9 % (40-54); Hemoglobin 7.6 g/dl (13.0-16.5); Lymphocyte # 0.87 X10^3/ul (4.0); Mean Corp Hgb Conc 31.8 g/gl (32-36); Mean Corpuscular Hgb 27.9 pg (27.0-32.0); Mean Corpuscular Volume 87.9 fL (80-94); Monocyte# 0.74 X10^3/uL; Monocyte% 11.1 % (0-10); Neutrophil # 4.63 X10^3/uL (2.7-7.7); Neutrophil % 69.3 % (47-70); Platelet Count 246 K/mm3 (150-450); RBC Distribution Width CV 15.6 % (11.6-14.6); RBC Distribution Width SD 48.6 fl (35.1-43.9); Red Blood Count 2.72 M/mm3 (4.6-6.2); White Blood Count 6.7 K/mm3 (4.4-11.0)
[2017-09-05 06:42] LABS: Anion Gap 11 (5-15); BUN 51 mg/dL (7-18); BUN/Creat Ratio 15.4 RATIO (10-20); Calcium,Total 8.5 mg/dL (8.5-10.1); Chloride 105 mmol/L (98-107); Creatinine, Serum 3.32 mg/dL (0.70-1.30); EST Glomerular Filtration Rate 19 mL/min (>60); Est Glom Filt Rate - Afr Amer 23 mL/min (>60); Estimated Creatinine Clearance 19.54 ml/min; Glucose 129 mg/dL (74-106); Potassium 3.9 mmol/L (3.5-5.1); Sodium Level 138 mmol/L (136-145)
[2017-09-05 06:45] LABS: POSITIVE COUNT NO; POSITIVE DIFFERENTIAL NO; POSITIVE MORPHOLOGY NO
[2017-09-05 06:46] LABS: Erythrocyte Sedimentation Rate 48 mm/hr (0-20)
[2017-09-05 06:55] LABS: Bedside Glucose 149 mg/dL (70-110)
--- NOTE | 2017-09-05 08:10 | NURSING ---
Patient's Hbg [address] Silva notified. Orders given to type and cross and given 2 units prbc with 40 mg lasix in between per protocol.
[2017-09-05] MEDS: Glucerna Shake 120 ML LIQUID PO ×2 (10:45→17:29)
[2017-09-05] MEDS: Multivitamins,Therapeutic Tablet 1 TABLET PO (10:46)
[2017-09-05] MEDS: Iron Polysaccharide Complex 150 MG CAPSULE PO (10:46)
[2017-09-05] MEDS: Ascorbic Acid 500 MG Tablet 1000 MG PO (10:46)
[2017-09-05] MEDS: Tuberculin,Purif.prot.deriv. 50 TU/ML Vial 5 ML ID (10:48)
--- NOTE | 2017-09-05 11:04 | NURSING ---
Dr. Silva aware that therapy reported that pt had blood when wiping after a BM this morning. N.O. to hold Eliquis, restart on Thursday. N.O. also for MRI of abdomen. Pt requesting to only take Colace not Senna, Dr. Silva updated and N.O. received. Pt stating that he may need something for anxiety while having his MRI, recently had one of his head, Dr. Silva updated and N.O. received. Per Office Services Representative pt can got to [facility] [id number] for blood transfusion after MRI. Communicated with blood bank and MRI. Pt taken to MRI at this time. and pt aware of all of the above.
[2017-09-05 12:36] LABS: Bedside Glucose 142 mg/dL (70-110)
--- NOTE | 2017-09-05 17:53 | NURSING ---
Pt C/O GAN only at night, Tylenol was not effective last night, N.O. for Tramadol 50mg PRN, pt and updated.
[2017-09-05 19:23] VITALS: BP 190/88; PULSE 88; RESP 20; TEMP 36.9; O2SAT 98
[2017-09-05] MEDS: 0.9% NaCl IVPB Med Flush (250 mL) 15 ML IV (19:59)
[2017-09-05] MEDS: Menthol/Lanolin/Calamine/Znox 113 GM Tube 1 APPLIC TOPICAL (20:11)
[2017-09-05 20:51] LABS: Bedside Glucose 135 mg/dL (70-110)
[2017-09-06] MEDS: 0.9% NaCl VAD Flush 10 ML IV (05:48)
[2017-09-06] MEDS: Isosorbide Mononitrate 60 MG Tablet PO (05:55)
[2017-09-06] MEDS: Docusate Sodium 100 MG Capsule PO ×2 (05:55→17:09)
[2017-09-06] MEDS: dilTIAZem CD 180 MG Capsule PO ×2 (05:55→17:09)
[2017-09-06] MEDS: Labetalol 100 MG Tablet PO ×2 (05:55→17:09)
[2017-09-06] MEDS: Menthol/Lanolin/Calamine/Znox 113 GM Tube 1 APPLIC TOPICAL ×2 (05:58→20:52)
[2017-09-06 06:19] LABS: Hematocrit 19.5 % (40-54); Hemoglobin 6.3 g/dl (13.0-16.5)
[2017-09-06 07:16] LABS: Bedside Glucose 115 mg/dL (70-110)
--- NOTE | 2017-09-06 08:00 | NURSING ---
Addendum entered by Marisol Davis 09/06/17 13:54: Pt returned from ER, HGB 9.2 in ER. Original Note: Dr. Silva updated on pt's HGB being 6.3 today, pt had a blood transfusion yesterday, N.O. to send to ER. supervisor core drilling aware, report called to Amanda in ER. Pt and aware.
[2017-09-06 10:00] VITALS: PULSE 88; RESP 16
[2017-09-06 11:56] LABS: Bedside Glucose 157 mg/dL (70-110)
[2017-09-06 17:06] LABS: Bedside Glucose 105 mg/dL (70-110)
[2017-09-06 17:09] VITALS: BP 177/90; PULSE 78; RESP 18; TEMP 37.2; O2SAT 97
[2017-09-06 21:10] LABS: Bedside Glucose 146 mg/dL (70-110)
[2017-09-07] MEDS: Labetalol 100 MG Tablet PO ×2 (06:05→17:17)
[2017-09-07] MEDS: dilTIAZem CD 180 MG Capsule PO ×2 (06:06→17:17)
[2017-09-07] MEDS: Docusate Sodium 100 MG Capsule PO ×2 (06:06→17:17)
[2017-09-07] MEDS: Isosorbide Mononitrate 60 MG Tablet PO (06:06)
[2017-09-07] MEDS: Menthol/Lanolin/Calamine/Znox 113 GM Tube 1 APPLIC TOPICAL ×2 (06:11→21:23)
[2017-09-07 07:10] LABS: Bedside Glucose 116 mg/dL (70-110)
[2017-09-07] MEDS: Ascorbic Acid 500 MG Tablet 1000 MG PO (08:54)
[2017-09-07] MEDS: Ferrous Sulfate 325 MG Tablet PO (08:54)
[2017-09-07] MEDS: Multivitamins,Therapeutic Tablet 1 TABLET PO (08:54)
[2017-09-07] MEDS: Glucerna Shake 120 ML LIQUID PO ×3 (08:55→17:16)
--- NOTE | 2017-09-07 11:55 | PN.ID_ITS ---
Patient Problems: Active and Suspected Problems Sepsis (Acute) Septic joint of left knee joint (Acute) Subjective: Working with PT, feeling much better, less confused per . No blood in stool , no fever. - Physical Exam General: Alert, Cooperative, No apparent distress Lungs: Clear to auscultation, Normal air movement Cardiovascular: Regular rate, Regular Rhythm Abdomen: Soft, Non Tender, Non-Distended Skin: No rashes Musculoskeletal: No Tenderness to Palpation of Joints or Extremities Vital Signs Temp Pulse Resp BP Pulse Ox 98.9 F 78 18 177/90 H 97 09/06/17 17:09 09/06/17 17:09 09/06/17 17:09 09/06/17 17:09 09/06/17 17:09 Oxygen Delivery Method Room Air Weight: 97.6 kg Body Mass Index (BMI) 30.9 Finger Stick Blood Glucose 122 Intake and Output for Last 24 Hours 09/05/17 09/06/17 09/07/17 23:59 23:59 23:59 Intake Total 360 / 360 480 / 480 240 / 240 Output Total 1475 / 1475 700 / 700 1300 / 1300 Balance -1115 / -1115 -220 / -220 -1060 / -1060 POC Glucose 09/07/17 09/06/17 09/06/17 06:35 21:06 17:01 POC Glucose 116 H 146 H 105 09/06/17 11:40 POC Glucose 157 H Route of nutrition/ use of supplements: [] Nutritional Intake: [] IV Site: [] Irving Catheter: [] - Assessment/Plan Antibiotics: [] Assessment/Plan: [] Active and Suspected Problems Sepsis (Acute) Septic joint of left knee joint (Acute) 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 Has h/o CKD and bioprosthetic AVR - repeat bcx neg since 08/29. Taken to OR 08/[address] Bryant for debridement with poly exchange. Has splinter hemorrhage on L 2nd toe , no other signs of endocarditis. Port placed. TIM with no veg seen. Continue ampicillin iv, stop date 10/10/17 for 6 week course. After that, will need long course of po abx. Weekly bmp, cbc, and esr while on iv abx. VINOD on CKD - neph following. Pending urine eos. Cr stable. will follow
[2017-09-07 12:00] LABS: Bedside Glucose 107 mg/dL (70-110)
[2017-09-07 15:20] VITALS: BP 133/66; PULSE 67; RESP 20; TEMP 36.9; O2SAT 95
--- NOTE | 2017-09-07 15:22 | PCM.PN.RX ---
<RichieyunierjacielLc - Last Filed: 09/07/17 15:22> Progress Note - Pharmacy Subjective: TCU Admission Objective: Allergies losartan potassium [From Cozaar] Allergy (Severe, Verified 08/28/17 04:00) Other valsartan [From Diovan HCT] Allergy (Severe, Verified 08/28/17 04:00) Other amlodipine besylate [From Norvasc] Allergy (Verified 08/28/17 04:00) Other doxazosin mesylate [From Cardura] Allergy (Verified 08/28/17 04:00) Other furosemide [From Lasix] Allergy (Verified 09/05/17 12:28) Other states causes urinary system to shut down and he can't urinate hydrochlorothiazide Allergy (Verified 08/28/17 04:00) Other metoprolol succinate [From Toprol XL] Allergy (Verified 08/28/17 04:00) Other simvastatin Allergy (Verified 08/28/17 04:00) Other oxycodone [From OxyIR] Adverse Reaction (Severe, Verified 09/04/17 13:52) tremors SEVERE CONFUSION vicodin Adverse Reaction (Severe, Uncoded 09/04/17 13:52) Other SEVERE CONFUSION Hydrogenated Vegetable Oil Adverse Reaction (Uncoded 08/28/17 04:00) Upset Stomach Home Medications Medication Instructions Recorded Ascorbic Acid [Vitamin C] 1,000 mg PO DAILY@0800 02/06/16 Multivitamin [Daily Multiple 1 each PO DAILY 02/06/16 Vitamin] Cholecalciferol (Vitamin D3) 2,000 unit PO DAILY 07/28/17 [Vitamin D3] Iron Polysaccharide Complex 325 mg PO DAILYCM 07/28/17 [Ferrex 150] Labetalol [Trandate (Beta Liz)] 100 mg PO BID 07/28/17 Diltiazem HCl [Diltiazem ER] 180 mg PO BID 07/29/17 Acetaminophen [Tylenol Tablet] 650 mg PO Q4H PRN PRN tablet 09/04/17 Ampicillin [Omnipen-N] 2 gm IV Q12 09/04/17 Apixaban [Eliquis] 2.5 mg PO BID 09/04/17 Bisacodyl [Dulcolax] 5 mg PO DAILY PRN PRN tablet 09/04/17 Glucerna Shake 120 ml PO TIDCM 09/04/17 Isosorbide Mononitrate [Imdur] 60 mg PO DAILY 09/04/17 Senna/Docusate Sodium [Senokot-S] 2 tablet PO BID 09/04/17 Polyethylene Glycol 3350 [Miralax] 17 gm PO DAILY 09/06/17 Current Medications Generic Name Dose Route Start Last Admin Trade Name Freq PRN Reason Stop Dose Admin Acetaminophen 1,000 mg 09/04/17 22:40 09/05/17 00:46 Tylenol PO 1,000 mg Q8H PRN PRN Administration MILD PAIN (1-09/12) Apixaban 2.5 mg 09/04/17 18:00 09/05/17 06:00 Eliquis PO 2.5 mg BID [facility] Administration Ascorbic Acid 1,000 mg 09/05/17 08:00 09/07/17 08:54 Vitamin C PO 1,000 mg DAILY@0800 [facility] Administration Bisacodyl 10 mg 09/04/17 22:40 Dulcolax PO DAILY PRN PRN Constipation Calamine/Phenol 1 applic 09/05/17 06:00 09/07/17 06:11 Calmoseptine Ointment TOPICAL 1 applicatio 0600,2200 [facility] Administration Protocol Cholecalciferol 2,000 unit 09/05/17 06:00 09/07/17 06:06 Vitamin D PO 2,000 unit DAILY [facility] Administration Diltiazem HCl 180 mg 09/04/17 20:00 09/07/17 06:06 Cardizem Cd PO 180 mg BID [facility] Administration Docusate Sodium 100 mg 09/05/17 18:00 09/07/17 06:06 Colace PO 100 mg BID [facility] Administration Emollient Ointment 1 applic 09/05/17 06:00 09/07/17 06:11 Eucerin Intensive Repair TOPICAL 1 applicatio 0600,2200 [facility] Administration Protocol Ferrous Sulfate 325 mg 09/06/17 08:00 09/07/17 08:54 Ferrous Sulfate PO 325 mg DAILY@0800 [facility] Administration Heparin Sodium (Beef Lung) 500 unit 09/04/17 17:53 Heparin 500 Unit/5 Ml (100/Ml) IV UD PRN HEPARIN FLUSH Sodium Chloride 250 mls @ 15 mls/hr 09/04/17 17:54 09/05/17 19:59 IV 15 mls/hr .[id number] PRN Administration SALINE FLUSH Ampicillin Sodium 2 gm/ Sodium 100 mls @ 150 mls/hr 09/04/17 20:00 09/07/17 05:57 Chloride IV 10/10/17 18:01 150 mls/hr Q12 KRANTHI Administration Isosorbide Mononitrate 60 mg 09/05/17 06:00 09/07/17 06:06 Imdur PO 60 mg DAILY [facility]AN[facility] Administration Labetalol HCl 100 mg 09/04/17 18:00 09/07/17 06:05 Trandate PO 100 mg BID [facility] Administration Multivitamins 1 tablet 09/05/17 08:00 09/07/17 08:54 Multivitamin PO 1 tablet DAILY@0800 [facility]AN[facility] Administration Nutritional Formula (Lactose Free) 120 ml 09/04/17 17:45 09/07/17 12:07 Glucerna Shake PO 120 ml TIDCM [facility]AN[facility] Administration Polyethylene Glycol 17 gm 09/05/17 06:00 09/07/17 06:05 Miralax PO Not Given DAILY KRAN[facility]I Sodium Chloride 10 ml 09/04/17 17:53 09/06/17 05:48 IV 10 ml UD PRN Administration VAD FLUSH Tramadol HCl 50 mg 09/05/17 17:51 Ultram (G) PO Q12H PRN HEADACHE Tuberculin PPD 5 tu 09/12/17 10:00 Tubersol, Aplisol, Ppd ID 09/12/17 10:01 X1 ONE Problem List Sepsis (Acute) Septic joint of left knee joint (Acute) Diabetes mellitus (Chronic) Vital Signs Temp Pulse Resp BP Pulse Ox 98.4 F 67 20 H 133/66 H 95 09/07/17 15:20 09/07/17 15:20 09/07/17 15:20 09/07/17 15:20 09/07/17 15:20 Oxygen Delivery Method Room Air Weight: 97.6 kg Body Mass Index (BMI) 30.9 Finger Stick Blood Glucose 122 Sodium 138 mmol/L (136-145) 09/05/17 06:00 Potassium 3.9 mmol/L (3.5-5.1) 09/05/17 06:00 Chloride 105 mmol/L (98-107) 09/05/17 06:00 Carbon Dioxide 22.0 mmol/L (21.0-32.0) 09/05/17 06:00 Anion Gap 11 (5-15) 09/05/17 06:00 BUN 51 mg/dL (7-18) H 09/05/17 06:00 Creatinine 3.32 mg/dL (0.70-1.30) H 09/05/17 06:00 Est GFR (MDRD) Af Amer 23 mL/min (>60) L 09/05/17 06:00 Est GFR (MDRD) Non-Af 19 mL/min (>60) L 09/05/17 06:00 BUN/Creatinine Ratio 15.4 RATIO (10-20) 09/05/17 06:00 Glucose 129 mg/dL (74-106) H 09/05/17 06:00 Assessment/Plan: 1) Pain APAP prn for mild pain, tramadol for GAN. Continue to monitor prn medication use, daily pain scores. 2) AFib/CAD Labetalol, isosorbide, diltiazem, apixaban. BP mostly within goal range, HR within goal range, Hgb/Hct below baseline and trending down. Continue to monitor BP/HR, renal function, s/s bleeding. 3) ID Ampicillin twice daily, renally adjusted, for enterococcal bacteremia. Afebrile, WBC wnl. Continue to monitor renal function, s/s infection. 4) Nutrition Multivitamin, Glucerna, Fe, D, C. Continue to monitor clinically. 5) Derm Calmoseptine, emollient combo topically. Continue to monitor clinically. Psychotropic Medications: None Unnecessary Medications: None Bowel Regimen: 6) PEG, docusate, prn bisacodyl. Continue to monitor prn medication use, for constipation/diarrhea. Date of Note:: 09/07/17 - Provider Comments Provider responsibility: Provider responsible to enter orders to implement recommendations <Ezekiel Silva Chi - Last Filed: 09/07/17 18:33> Progress Note - Pharmacy Subjective: [] Objective: Allergies losartan potassium [From Cozaar] Allergy (Severe, Verified 08/28/17 04:00) Other valsartan [From Diovan HCT] Allergy (Severe, Verified 08/28/17 04:00) Other amlodipine besylate [From Norvasc] Allergy (Verified 08/28/17 04:00) Other doxazosin mesylate [From Cardura] Allergy (Verified 08/28/17 04:00) Other furosemide [From Lasix] Allergy (Verified 09/05/17 12:28) Other states causes urinary system to shut down and he can't urinate hydrochlorothiazide Allergy (Verified 08/28/17 04:00) Other metoprolol succinate [From Toprol XL] Allergy (Verified 08/28/17 04:00) Other simvastatin Allergy (Verified 08/28/17 04:00) Other oxycodone [From OxyIR] Adverse Reaction (Severe, Verified 09/04/17 13:52) tremors SEVERE CONFUSION vicodin Adverse Reaction (Severe, Uncoded 09/04/17 13:52) Other SEVERE CONFUSION Hydrogenated Vegetable Oil Adverse Reaction (Uncoded 08/28/17 04:00) Upset Stomach Home Medications Medication Instructions Recorded Ascorbic Acid [Vitamin C] 1,000 mg PO DAILY@0800 02/06/16 Multivitamin [Daily Multiple 1 each PO DAILY 02/06/16 Vitamin] Cholecalciferol (Vitamin D3) 2,000 unit PO DAILY 07/28/17 [Vitamin D3] Iron Polysaccharide Complex 325 mg PO DAILYCM 07/28/17 [Ferrex 150] Labetalol [Trandate (Beta Liz)] 100 mg PO BID 07/28/17 Diltiazem HCl [Diltiazem ER] 180 mg PO BID 07/29/17 Acetaminophen [Tylenol Tablet] 650 mg PO Q4H PRN PRN tablet 09/04/17 Ampicillin [Omnipen-N] 2 gm IV Q12 09/04/17 Apixaban [Eliquis] 2.5 mg PO BID 09/04/17 Bisacodyl [Dulcolax] 5 mg PO DAILY PRN PRN tablet 09/04/17 Glucerna Shake 120 ml PO TIDCM 09/04/17 Isosorbide Mononitrate [Imdur] 60 mg PO DAILY 09/04/17 Senna/Docusate Sodium [Senokot-S] 2 tablet PO BID 09/04/17 Polyethylene Glycol 3350 [Miralax] 17 gm PO DAILY 09/06/17 Current Medications Generic Name Dose Route Start Last Admin Trade Name Freq PRN Reason Stop Dose Admin Acetaminophen 1,000 mg 09/04/17 22:40 09/05/17 00:46 Tylenol PO 1,000 mg Q8H PRN PRN Administration MILD PAIN (1-3/10) Apixaban 2.5 mg 09/04/17 18:00 09/05/17 06:00 Eliquis PO 2.5 mg BID [facility] Administration Ascorbic Acid 1,000 mg 09/05/17 08:00 09/07/17 08:54 Vitamin C PO 1,000 mg DAILY@0800 [facility] Administration Bisacodyl 10 mg 09/04/17 22:40 Dulcolax PO DAILY PRN PRN Constipation Calamine/Phenol 1 applic 09/05/17 06:00 09/07/17 06:11 Calmoseptine Ointment TOPICAL 1 applicatio 0600,2200 [facility] Administration Protocol Cholecalciferol 2,000 unit 09/05/17 06:00 09/07/17 06:06 Vitamin D PO 2,000 unit DAILY [facility] Administration Diltiazem HCl 180 mg 09/04/17 20:00 09/07/17 17:17 Cardizem Cd PO 180 mg BID [facility] Administration Docusate Sodium 100 mg 09/05/17 18:00 09/07/17 17:17 Colace PO 100 mg BID [facility] Administration Emollient Ointment 1 applic 09/05/17 06:00 09/07/17 06:11 Eucerin Intensive Repair TOPICAL 1 applicatio 0600,2200 [facility] Administration Protocol Ferrous Sulfate 325 mg 09/06/17 08:00 09/07/17 08:54 Ferrous Sulfate PO 325 mg DAILY@0800 [facility] Administration Heparin Sodium (Beef Lung) 500 unit 09/04/17 17:53 Heparin 500 Unit/5 Ml (100/Ml) IV UD PRN HEPARIN FLUSH Sodium Chloride 250 mls @ 15 mls/hr 09/04/17 17:54 09/05/17 19:59 IV 15 mls/hr .[id number] PRN Administration SALINE FLUSH Ampicillin Sodium 2 gm/ Sodium 100 mls @ 150 mls/hr 09/04/17 20:00 09/07/17 17:19 Chloride IV 10/10/17 18:01 150 mls/hr Q12 [facility] Administration Isosorbide Mononitrate 60 mg 09/05/17 06:00 09/07/17 06:06 Imdur PO 60 mg DAILY [facility] Administration Labetalol HCl 100 mg 09/04/17 18:00 09/07/17 17:17 Trandate PO 100 mg BID [facility] Administration Multivitamins 1 tablet 09/05/17 08:00 09/07/17 08:54 Multivitamin PO 1 tablet DAILY@0800 [facility] Administration Nutritional Formula (Lactose Free) 120 ml 09/04/17 17:45 09/07/17 17:16 Glucerna Shake PO 120 ml TIDCM [facility] Administration Polyethylene Glycol 17 gm 09/05/17 06:00 09/07/17 06:05 Miralax PO Not Given DAILY [facility] Sodium Chloride 10 ml 09/04/17 17:53 09/07/17 17:18 IV 10 ml UD PRN Administration VAD FLUSH Tramadol HCl 50 mg 09/05/17 17:51 Ultram (G) PO Q12H PRN HEADACHE Tuberculin PPD 5 tu 09/12/17 10:00 Tubersol, Aplisol, Ppd ID 09/12/17 10:01 X1 ONE Problem List Sepsis (Acute) Septic joint of left knee joint (Acute) Diabetes mellitus (Chronic) Vital Signs Temp Pulse Resp BP Pulse Ox 98.4 F 67 20 H 133/66 H 95 09/07/17 15:20 09/07/17 15:20 09/07/17 15:20 09/07/17 15:20 09/07/17 15:20 Oxygen Delivery Method Room Air Weight: 97.6 kg Body Mass Index (BMI) 30.9 Finger Stick Blood Glucose 122 Sodium 138 mmol/L (136-145) 09/05/17 06:00 Potassium 3.9 mmol/L (3.5-5.1) 09/05/17 06:00 Chloride 105 mmol/L (98-107) 09/05/17 06:00 Carbon Dioxide 22.0 mmol/L (21.0-32.0) 09/05/17 06:00 Anion Gap 11 (5-15) 09/05/17 06:00 BUN 51 mg/dL (7-18) H 09/05/17 06:00 Creatinine 3.32 mg/dL (0.70-1.30) H 09/05/17 06:00 Est GFR (MDRD) Af Amer 23 mL/min (>60) L 09/05/17 06:00 Est GFR (MDRD) Non-Af 19 mL/min (>60) L 09/05/17 06:00 BUN/Creatinine Ratio 15.4 RATIO (10-20) 09/05/17 06:00 Glucose 129 mg/dL (74-106) H 09/05/17 06:00 Assessment/Plan: Psychotropic Medications: Unnecessary Medications: Bowel Regimen: - Provider Comments Provider responsibility: Provider responsible to enter orders to implement recommendations Provider Comments to Recommendations by Pharmacy: Agree
--- NOTE | 2017-09-07 15:28 | PHA.CONS_ITS ---
<RichieyunierjacielLc - Last Filed: 09/07/17 15:22> Progress Note - Pharmacy Subjective: TCU Admission Objective: Allergies losartan potassium [From Cozaar] Allergy (Severe, Verified 08/28/17 04:00) Other valsartan [From Diovan HCT] Allergy (Severe, Verified 08/28/17 04:00) Other amlodipine besylate [From Norvasc] Allergy (Verified 08/28/17 04:00) Other doxazosin mesylate [From Cardura] Allergy (Verified 08/28/17 04:00) Other furosemide [From Lasix] Allergy (Verified 09/05/17 12:28) Other states causes urinary system to shut down and he can't urinate hydrochlorothiazide Allergy (Verified 08/28/17 04:00) Other metoprolol succinate [From Toprol XL] Allergy (Verified 08/28/17 04:00) Other simvastatin Allergy (Verified 08/28/17 04:00) Other oxycodone [From OxyIR] Adverse Reaction (Severe, Verified 09/04/17 13:52) tremors SEVERE CONFUSION vicodin Adverse Reaction (Severe, Uncoded 09/04/17 13:52) Other SEVERE CONFUSION Hydrogenated Vegetable Oil Adverse Reaction (Uncoded 08/28/17 04:00) Upset Stomach Home Medications Medication Instructions Recorded Ascorbic Acid [Vitamin C] 1,000 mg PO DAILY@0800 02/06/16 Multivitamin [Daily Multiple 1 each PO DAILY 02/06/16 Vitamin] Cholecalciferol (Vitamin D3) 2,000 unit PO DAILY 07/28/17 [Vitamin D3] Iron Polysaccharide Complex 325 mg PO DAILYCM 07/28/17 [Ferrex 150] Labetalol [Trandate (Beta Liz)] 100 mg PO BID 07/28/17 Diltiazem HCl [Diltiazem ER] 180 mg PO BID 07/29/17 Acetaminophen [Tylenol Tablet] 650 mg PO Q4H PRN PRN tablet 09/04/17 Ampicillin [Omnipen-N] 2 gm IV Q12 09/04/17 Apixaban [Eliquis] 2.5 mg PO BID 09/04/17 Bisacodyl [Dulcolax] 5 mg PO DAILY PRN PRN tablet 09/04/17 Glucerna Shake 120 ml PO TIDCM 09/04/17 Isosorbide Mononitrate [Imdur] 60 mg PO DAILY 09/04/17 Senna/Docusate Sodium [Senokot-S] 2 tablet PO BID 09/04/17 Polyethylene Glycol 3350 [Miralax] 17 gm PO DAILY 09/06/17 Current Medications Generic Name Dose Route Start Last Admin Trade Name Freq PRN Reason Stop Dose Admin Acetaminophen 1,000 mg 09/04/17 22:40 09/05/17 00:46 Tylenol PO 1,000 mg Q8H PRN PRN Administration MILD PAIN (1-09/12) Apixaban 2.5 mg 09/04/17 18:00 09/05/17 06:00 Eliquis PO 2.5 mg BID [facility] Administration Ascorbic Acid 1,000 mg 09/05/17 08:00 09/07/17 08:54 Vitamin C PO 1,000 mg DAILY@0800 [facility] Administration Bisacodyl 10 mg 09/04/17 22:40 Dulcolax PO DAILY PRN PRN Constipation Calamine/Phenol 1 applic 09/05/17 06:00 09/07/17 06:11 Calmoseptine Ointment TOPICAL 1 applicatio 0600,2200 [facility] Administration Protocol Cholecalciferol 2,000 unit 09/05/17 06:00 09/07/17 06:06 Vitamin D PO 2,000 unit DAILY KRANTHI Administration Diltiazem HCl 180 mg 09/04/17 20:00 09/07/17 06:06 Cardizem Cd PO 180 mg BID KRANTHI Administration Docusate Sodium 100 mg 09/05/17 18:00 09/07/17 06:06 Colace PO 100 mg BID [facility] Administration Emollient Ointment 1 applic 09/05/17 06:00 09/07/17 06:11 Eucerin Intensive Repair TOPICAL 1 applicatio 0600,2200 [facility] Administration Protocol Ferrous Sulfate 325 mg 09/06/17 08:00 09/07/17 08:54 Ferrous Sulfate PO 325 mg DAILY@0800 [facility] Administration Heparin Sodium (Beef Lung) 500 unit 09/04/17 17:53 Heparin 500 Unit/5 Ml (100/Ml) IV UD PRN HEPARIN FLUSH Sodium Chloride 250 mls @ 15 mls/hr 09/04/17 17:54 09/05/17 19:59 IV 15 mls/hr .[id number] PRN Administration SALINE FLUSH Ampicillin Sodium 2 gm/ Sodium 100 mls @ 150 mls/hr 09/04/17 20:00 09/07/17 05:57 Chloride IV 10/10/17 18:01 150 mls/hr Q12 KRANTHI Administration Isosorbide Mononitrate 60 mg 09/05/17 06:00 09/07/17 06:06 Imdur PO 60 mg DAILY KRANTHI Administration Labetalol HCl 100 mg 09/04/17 18:00 09/07/17 06:05 Trandate PO 100 mg BID KRANTHI Administration Multivitamins 1 tablet 09/05/17 08:00 09/07/17 08:54 Multivitamin PO 1 tablet DAILY@0800 KRANTHI Administration Nutritional Formula (Lactose Free) 120 ml 09/04/17 17:45 09/07/17 12:07 Glucerna Shake PO 120 ml TIDCM KRANTHI Administration Polyethylene Glycol 17 gm 09/05/17 06:00 09/07/17 06:05 Miralax PO Not Given DAILY KRANTHI Sodium Chloride 10 ml 09/04/17 17:53 09/06/17 05:48 IV 10 ml UD PRN Administration VAD FLUSH Tramadol HCl 50 mg 09/05/17 17:51 Ultram (G) PO Q12H PRN HEADACHE Tuberculin PPD 5 tu 09/12/17 10:00 Tubersol, Aplisol, Ppd ID 09/12/17 10:01 X1 ONE Problem List Sepsis (Acute) Septic joint of left knee joint (Acute) Diabetes mellitus (Chronic) Vital Signs Temp Pulse Resp BP Pulse Ox 98.4 F 67 20 H 133/66 H 95 09/07/17 15:20 09/07/17 15:20 09/07/17 15:20 09/07/17 15:20 09/07/17 15:20 Oxygen Delivery Method Room Air Weight: 97.6 kg Body Mass Index (BMI) 30.9 Finger Stick Blood Glucose 122 Sodium 138 mmol/L (136-145) 09/05/17 06:00 Potassium 3.9 mmol/L (3.5-5.1) 09/05/17 06:00 Chloride 105 mmol/L (98-107) 09/05/17 06:00 Carbon Dioxide 22.0 mmol/L (21.0-32.0) 09/05/17 06:00 Anion Gap 11 (5-15) 09/05/17 06:00 BUN 51 mg/dL (7-18) H 09/05/17 06:00 Creatinine 3.32 mg/dL (0.70-1.30) H 09/05/17 06:00 Est GFR (MDRD) Af Amer 23 mL/min (>60) L 09/05/17 06:00 Est GFR (MDRD) Non-Af 19 mL/min (>60) L 09/05/17 06:00 BUN/Creatinine Ratio 15.4 RATIO (10-20) 09/05/17 06:00 Glucose 129 mg/dL (74-106) H 09/05/17 06:00 Assessment/Plan: 1) Pain APAP prn for mild pain, tramadol for GAN. Continue to monitor prn medication use, daily pain scores. 2) AFib/CAD Labetalol, isosorbide, diltiazem, apixaban. BP mostly within goal range, HR within goal range, Hgb/Hct below baseline and trending down. Continue to monitor BP/HR, renal function, s/s bleeding. 3) ID Ampicillin twice daily, renally adjusted, for enterococcal bacteremia. Afebrile, WBC wnl. Continue to monitor renal function, s/s infection. 4) Nutrition Multivitamin, Glucerna, Fe, D, C. Continue to monitor clinically. 5) Derm Calmoseptine, emollient combo topically. Continue to monitor clinically. Psychotropic Medications: None Unnecessary Medications: None Bowel Regimen: 6) PEG, docusate, prn bisacodyl. Continue to monitor prn medication use, for constipation/diarrhea. Date of Note:: 09/07/17 - Provider Comments Provider responsibility: Provider responsible to enter orders to implement recommendations <Ezekiel Silva Chi - Last Filed: 09/07/17 18:33> Progress Note - Pharmacy Subjective: [] Objective: Allergies losartan potassium [From Cozaar] Allergy (Severe, Verified 08/28/17 04:00) Other valsartan [From Diovan HCT] Allergy (Severe, Verified 08/28/17 04:00) Other amlodipine besylate [From Norvasc] Allergy (Verified 08/28/17 04:00) Other doxazosin mesylate [From Cardura] Allergy (Verified 08/28/17 04:00) Other furosemide [From Lasix] Allergy (Verified 09/05/17 12:28) Other states causes urinary system to shut down and he can't urinate hydrochlorothiazide Allergy (Verified 08/28/17 04:00) Other metoprolol succinate [From Toprol XL] Allergy (Verified 08/28/17 04:00) Other simvastatin Allergy (Verified 08/28/17 04:00) Other oxycodone [From OxyIR] Adverse Reaction (Severe, Verified 09/04/17 13:52) tremors SEVERE CONFUSION vicodin Adverse Reaction (Severe, Uncoded 09/04/17 13:52) Other SEVERE CONFUSION Hydrogenated Vegetable Oil Adverse Reaction (Uncoded 08/28/17 04:00) Upset Stomach Home Medications Medication Instructions Recorded Ascorbic Acid [Vitamin C] 1,000 mg PO DAILY@0800 02/06/16 Multivitamin [Daily Multiple 1 each PO DAILY 02/06/16 Vitamin] Cholecalciferol (Vitamin D3) 2,000 unit PO DAILY 07/28/17 [Vitamin D3] Iron Polysaccharide Complex 325 mg PO DAILYCM 07/28/17 [Ferrex 150] Labetalol [Trandate (Beta Liz)] 100 mg PO BID 07/28/17 Diltiazem HCl [Diltiazem ER] 180 mg PO BID 07/29/17 Acetaminophen [Tylenol Tablet] 650 mg PO Q4H PRN PRN tablet 09/04/17 Ampicillin [Omnipen-N] 2 gm IV Q12 09/04/17 Apixaban [Eliquis] 2.5 mg PO BID 09/04/17 Bisacodyl [Dulcolax] 5 mg PO DAILY PRN PRN tablet 09/04/17 Glucerna Shake 120 ml PO TIDCM 09/04/17 Isosorbide Mononitrate [Imdur] 60 mg PO DAILY 09/04/17 Senna/Docusate Sodium [Senokot-S] 2 tablet PO BID 09/04/17 Polyethylene Glycol 3350 [Miralax] 17 gm PO DAILY 09/06/17 Current Medications Generic Name Dose Route Start Last Admin Trade Name Freq PRN Reason Stop Dose Admin Acetaminophen 1,000 mg 09/04/17 22:40 09/05/17 00:46 Tylenol PO 1,000 mg Q8H PRN PRN Administration MILD PAIN (1-3/10) Apixaban 2.5 mg 09/04/17 18:00 09/05/17 06:00 Eliquis PO 2.5 mg BID KRANTHI Administration Ascorbic Acid 1,000 mg 09/05/17 08:00 09/07/17 08:54 Vitamin C PO 1,000 mg DAILY@0800 KRANTHI Administration Bisacodyl 10 mg 09/04/17 22:40 Dulcolax PO DAILY PRN PRN Constipation Calamine/Phenol 1 applic 09/05/17 06:00 09/07/17 06:11 Calmoseptine Ointment TOPICAL 1 applicatio 0600,2200 [facility] Administration Protocol Cholecalciferol 2,000 unit 09/05/17 06:00 09/07/17 06:06 Vitamin D PO 2,000 unit DAILY [facility] Administration Diltiazem HCl 180 mg 09/04/17 20:00 09/07/17 17:17 Cardizem Cd PO 180 mg BID [facility] Administration Docusate Sodium 100 mg 09/05/17 18:00 09/07/17 17:17 Colace PO 100 mg BID [facility] Administration Emollient Ointment 1 applic 09/05/17 06:00 09/07/17 06:11 Eucerin Intensive Repair TOPICAL 1 applicatio 0600,2200 [facility] Administration Protocol Ferrous Sulfate 325 mg 09/06/17 08:00 09/07/17 08:54 Ferrous Sulfate PO 325 mg DAILY@0800 [facility] Administration Heparin Sodium (Beef Lung) 500 unit 09/04/17 17:53 Heparin 500 Unit/5 Ml (100/Ml) IV UD PRN HEPARIN FLUSH Sodium Chloride 250 mls @ 15 mls/hr 09/04/17 17:54 09/05/17 19:59 IV 15 mls/hr .[id number] PRN Administration SALINE FLUSH Ampicillin Sodium 2 gm/ Sodium 100 mls @ 150 mls/hr 09/04/17 20:00 09/07/17 17:19 Chloride IV 10/10/17 18:01 150 mls/hr Q12 KRANTHI Administration Isosorbide Mononitrate 60 mg 09/05/17 06:00 09/07/17 06:06 Imdur PO 60 mg DAILY [facility] Administration Labetalol HCl 100 mg 09/04/17 18:00 09/07/17 17:17 Trandate PO 100 mg BID KRANTHI Administration Multivitamins 1 tablet 09/05/17 08:00 09/07/17 08:54 Multivitamin PO 1 tablet DAILY@0800 KRANTHI Administration Nutritional Formula (Lactose Free) 120 ml 09/04/17 17:45 09/07/17 17:16 Glucerna Shake PO 120 ml TIDCM KRANTHI Administration Polyethylene Glycol 17 gm 09/05/17 06:00 09/07/17 06:05 Miralax PO Not Given DAILY KRANTHI Sodium Chloride 10 ml 09/04/17 17:53 09/07/17 17:18 IV 10 ml UD PRN Administration VAD FLUSH Tramadol HCl 50 mg 09/05/17 17:51 Ultram (G) PO Q12H PRN HEADACHE Tuberculin PPD 5 tu 09/12/17 10:00 Tubersol, Aplisol, Ppd ID 09/12/17 10:01 X1 ONE Problem List Sepsis (Acute) Septic joint of left knee joint (Acute) Diabetes mellitus (Chronic) Vital Signs Temp Pulse Resp BP Pulse Ox 98.4 F 67 20 H 133/66 H 95 09/07/17 15:20 09/07/17 15:20 09/07/17 15:20 09/07/17 15:20 09/07/17 15:20 Oxygen Delivery Method Room Air Weight: 97.6 kg Body Mass Index (BMI) 30.9 Finger Stick Blood Glucose 122 Sodium 138 mmol/L (136-145) 09/05/17 06:00 Potassium 3.9 mmol/L (3.5-5.1) 09/05/17 06:00 Chloride 105 mmol/L (98-107) 09/05/17 06:00 Carbon Dioxide 22.0 mmol/L (21.0-32.0) 09/05/17 06:00 Anion Gap 11 (5-15) 09/05/17 06:00 BUN 51 mg/dL (7-18) H 09/05/17 06:00 Creatinine 3.32 mg/dL (0.70-1.30) H 09/05/17 06:00 Est GFR (MDRD) Af Amer 23 mL/min (>60) L 09/05/17 06:00 Est GFR (MDRD) Non-Af 19 mL/min (>60) L 09/05/17 06:00 BUN/Creatinine Ratio 15.4 RATIO (10-20) 09/05/17 06:00 Glucose 129 mg/dL (74-106) H 09/05/17 06:00 Assessment/Plan: Psychotropic Medications: Unnecessary Medications: Bowel Regimen: - Provider Comments Provider responsibility: Provider responsible to enter orders to implement recommendations Provider Comments to Recommendations by Pharmacy: Agree
[2017-09-07 17:16] LABS: Bedside Glucose 104 mg/dL (70-110)
[2017-09-07] MEDS: 0.9% NaCl VAD Flush 10 ML IV (17:18)
[2017-09-07 21:21] LABS: Bedside Glucose 145 mg/dL (70-110)
[2017-09-08] MEDS: 0.9% NaCl IVPB Med Flush (250 mL) 15 ML IV (05:19)
[2017-09-08] MEDS: 0.9% NaCl VAD Flush 10 ML IV ×2 (05:23→17:30)
[2017-09-08] MEDS: Menthol/Lanolin/Calamine/Znox 113 GM Tube 1 APPLIC TOPICAL (05:27)
[2017-09-08] MEDS: Isosorbide Mononitrate 60 MG Tablet PO (05:27)
[2017-09-08] MEDS: Docusate Sodium 100 MG Capsule PO ×2 (05:27→17:33)
[2017-09-08] MEDS: Labetalol 100 MG Tablet PO ×2 (05:27→17:34)
[2017-09-08] MEDS: dilTIAZem CD 180 MG Capsule PO ×2 (05:27→17:33)
[2017-09-08] MEDS: Polyethylene Glycol 3350 17 GM PACKET PO (05:30)
[2017-09-08] MEDS: APIXABAN 2.5 MG TABLET PO ×2 (05:54→17:33)
[2017-09-08 06:46] LABS: Bedside Glucose 124 mg/dL (70-110)
[2017-09-08] MEDS: Glucerna Shake 120 ML LIQUID PO ×3 (08:07→17:36)
[2017-09-08] MEDS: Ferrous Sulfate 325 MG Tablet PO (08:08)
[2017-09-08] MEDS: Multivitamins,Therapeutic Tablet 1 TABLET PO (08:09)
[2017-09-08] MEDS: Ascorbic Acid 500 MG Tablet 1000 MG PO (08:09)
--- NOTE | 2017-09-08 09:44 | NURSING ---
DR GATICA OFFICE WANTS PT TO HAVE JORGE ALBERTO AND MEPILEX AG DRSG REMOVED AT F/U APPT. AWARE AND WILL TAKE PT TO APPT
[2017-09-08 12:06] LABS: Bedside Glucose 139 mg/dL (70-110)
--- NOTE | 2017-09-08 15:06 | CHAPLAIN ---
Type of Pastoral Visit _x__ Initial Visit ___ Follow-up Visit ___ On-call Visit ___ General Patient Visit ___ Spiritual Assessment ___ Family Conference ___ Bereavement ___ Rapid Response ___ Code Blue ___ Other (describe below) Pastoral Care Referral From _x__ Patient ___ Family ___ Nurse ___ Physician ___ Patient Safety Manager ___ Poured Wall Foreman ___ Other (describe below) Sacrament/Intervention _x__ Active listening ___ Anointing ___ Religion ___ Bereavement ___ Communion _x__ Tasha exploration ___ _x__ Life review _x__ Prayer ___ Reconciliation ___ Sacrament of Sick _x__ Supportive presence ___ Wedding ___ Other (describe below) Pastoral Comments this was a long talk with spouse of patient; pt was in therapy session; had met this couple in a previous admission; describes circumstances and reviews emotional discouragement of patient and family over new issues with knee replacement; family is looking for spiritual understanding as to why health has been a struggle; family has deep tasha;
[2017-09-08 15:13] VITALS: BP 148/84; PULSE 80; RESP 16; TEMP 36.6; O2SAT 95
[2017-09-08 17:06] LABS: Bedside Glucose 107 mg/dL (70-110)
[2017-09-08 21:16] LABS: Bedside Glucose 128 mg/dL (70-110)
[2017-09-09] MEDS: 0.9% NaCl VAD Flush 10 ML IV ×2 (06:22→17:08)
[2017-09-09] MEDS: Polyethylene Glycol 3350 17 GM PACKET PO (06:28)
[2017-09-09] MEDS: Labetalol 100 MG Tablet PO ×2 (06:30→16:51)
[2017-09-09] MEDS: dilTIAZem CD 180 MG Capsule PO ×2 (06:30→16:50)
[2017-09-09] MEDS: Docusate Sodium 100 MG Capsule PO ×2 (06:30→16:51)
[2017-09-09] MEDS: Menthol/Lanolin/Calamine/Znox 113 GM Tube 1 APPLIC TOPICAL (06:30)
[2017-09-09] MEDS: Isosorbide Mononitrate 60 MG Tablet PO (06:30)
[2017-09-09] MEDS: APIXABAN 2.5 MG TABLET PO ×2 (06:30→16:50)
[2017-09-09 07:01] LABS: Bedside Glucose 113 mg/dL (70-110)
[2017-09-09] MEDS: Multivitamins,Therapeutic Tablet 1 TABLET PO (08:39)
[2017-09-09] MEDS: Glucerna Shake 120 ML LIQUID PO ×3 (08:39→17:08)
[2017-09-09] MEDS: Ascorbic Acid 500 MG Tablet 1000 MG PO (08:39)
[2017-09-09] MEDS: Ferrous Sulfate 325 MG Tablet PO (08:39)
[2017-09-09 11:31] LABS: Bedside Glucose 170 mg/dL (70-110)
--- NOTE | 2017-09-09 14:37 | NURSING ---
pt c/o hands cramping, dr ramirez notified, new order for BMP, calcium, magnesium, and phoshorus
[2017-09-09 15:44] LABS: BUN 49 mg/dL (7-18); Creatinine, Serum 3.33 mg/dL (0.70-1.30); EST Glomerular Filtration Rate 19 mL/min (>60); Estimated Creatinine Clearance 19.49 ml/min; Glucose 120 mg/dL (74-106)
[2017-09-09 15:45] LABS: Anion Gap 12 (5-15); BUN/Creat Ratio 14.7 RATIO (10-20); Calcium,Total 8.5 mg/dL (8.5-10.1); Chloride 103 mmol/L (98-107); Est Glom Filt Rate - Afr Amer 23 mL/min (>60); Phosphorus 4.7 mg/dL (2.5-4.9); Potassium 4.3 mmol/L (3.5-5.1); Sodium Level 140 mmol/L (136-145)
[2017-09-09 16:00] VITALS: BP 160/72; PULSE 66; RESP 20; TEMP 36.9; O2SAT 97
[2017-09-09 16:04] LABS: Absolute Lymphocyte Count 1.07 X10^3/ul (0.83-4.51); Basophil# 0.03 X10^3/uL; Basophil% 0.4 % (0-1); Eosinophil# 0.39 X10^3/uL; Eosinophils% 5.3 % (0-5); Hematocrit 30.7 % (40-54); Hemoglobin 9.7 g/dl (13.0-16.5); Lymphocyte # 1.07 X10^3/ul (4.0); Lymphocyte % 14.6 % (19-41); Mean Corp Hgb Conc 31.6 g/gl (32-36); Mean Corpuscular Volume 88.7 fL (80-94); Mean Platelet Vol. 8.8 fl (6.2-12.0); Monocyte# 0.78 X10^3/uL; Monocyte% 10.7 % (0-10); Neutrophil # 5.03 X10^3/uL (2.7-7.7); Neutrophil % 68.7 % (47-70); Platelet Count 341 K/mm3 (150-450); RBC Distribution Width CV 15.2 % (11.6-14.6); RBC Distribution Width SD 48.4 fl (35.1-43.9); Red Blood Count 3.46 M/mm3 (4.6-6.2); White Blood Count 7.3 K/mm3 (4.4-11.0)
[2017-09-09 16:06] LABS: POSITIVE COUNT NO; POSITIVE DIFFERENTIAL NO; POSITIVE MORPHOLOGY NO
[2017-09-09 17:20] LABS: Bedside Glucose 113 mg/dL (70-110)
[2017-09-09] MEDS: MELATONIN 10 MG TABLET PO (19:54)
[2017-09-09 21:05] LABS: Bedside Glucose 186 mg/dL (70-110)
[2017-09-10] MEDS: 0.9% NaCl IVPB Med Flush (250 mL) 15 ML IV (06:08)
[2017-09-10] MEDS: 0.9% NaCl VAD Flush 10 ML IV (06:08)
[2017-09-10] MEDS: Labetalol 100 MG Tablet PO ×2 (06:16→18:14)
[2017-09-10] MEDS: dilTIAZem CD 180 MG Capsule PO ×2 (06:16→18:14)
[2017-09-10] MEDS: Isosorbide Mononitrate 60 MG Tablet PO (06:16)
[2017-09-10] MEDS: Docusate Sodium 100 MG Capsule PO (06:16)
[2017-09-10] MEDS: APIXABAN 2.5 MG TABLET PO ×2 (06:17→18:14)
[2017-09-10 06:41] LABS: Bedside Glucose 113 mg/dL (70-110)
--- NOTE | 2017-09-10 07:56 | NURSING ---
Urinals emptied of 1700ml of fluid from night time. Pt also voided in toilet. Pt spouse informed this nurse the pt has not been consuming many fluids. Dr Silva updated. N.N.O.
[2017-09-10] MEDS: Ferrous Sulfate 325 MG Tablet PO (09:06)
[2017-09-10] MEDS: Multivitamins,Therapeutic Tablet 1 TABLET PO (09:07)
[2017-09-10] MEDS: Ascorbic Acid 500 MG Tablet 1000 MG PO (09:07)
[2017-09-10] MEDS: Glucerna Shake 120 ML LIQUID PO ×2 (09:07→18:18)
--- NOTE | 2017-09-10 11:30 | PCM.PN.ID ---
Patient Problems: Active and Suspected Problems Sepsis (Acute) Septic joint of left knee joint (Acute) Subjective: Feeling well, no fever, no n/v/d. Doing well with therapy. - Physical Exam General: Alert, Cooperative, No apparent distress Lungs: Clear to auscultation, Normal air movement Cardiovascular: Regular rate, Regular Rhythm, Murmur Abdomen: Soft, Non Tender, Non-Distended Skin: Incision - no surrounding redness on L knee Vital Signs Temp Pulse Resp BP Pulse Ox 98.5 F 66 20 H 160/72 H 97 09/09/17 16:00 09/09/17 16:00 09/09/17 16:00 09/09/17 16:00 09/09/17 16:00 Oxygen Delivery Method Room Air Weight: 96.1 kg Body Mass Index (BMI) 30.9 Finger Stick Blood Glucose 122 Intake and Output for Last 24 Hours 09/08/17 09/09/17 09/10/17 23:59 23:59 23:59 Intake Total 1080 / 1080 1080 / 1080 360 / 360 Output Total 850 / 850 1700 / 1700 Balance 230 / 230 1080 / 1080 -1340 / -1340 Laboratory Tests Past 24 Hrs 09/09/17 09/09/17 15:11 15:35 WBC 7.3 RBC 3.46 L Hgb 9.7 L Hct 30.7 L MCV 88.7 MCH 28.0 MCHC 31.6 L RDW 15.2 H RDW Differential 48.4 H Plt Count 341 MPV 8.8 Immature Gran % (Auto) 0.300 Neut % (Auto) 68.7 Lymph % (Auto) 14.6 L [place] % (Auto) 10.7 H Eos % (Auto) 5.3 H Baso % (Auto) 0.4 Absolute Neuts (auto) 5.0 Absolute Lymphs (auto) 1.07 Total Counted Not Reportable Sodium 140 Potassium 4.3 Chloride 103 Carbon Dioxide 25.0 Anion Gap 12 BUN 49 H Creatinine 3.33 H Estim Creat Clear Calc 19.49 Est GFR (MDRD) Af Amer 23 L Est GFR (MDRD) Non-Af 19 L BUN/Creatinine Ratio 14.7 Glucose 120 H Calcium 8.5 Phosphorus 4.7 Magnesium 2.0 POC Glucose 09/10/17 09/09/17 09/09/17 06:19 20:59 17:07 POC Glucose 113 H 186 H 113 H 09/09/17 11:24 POC Glucose 170 H Route of nutrition/ use of supplements: [] Nutritional Intake: [] IV Site: [] Irving Catheter: [] - Assessment/Plan Antibiotics: [] Assessment/Plan: [] Active and Suspected Problems Sepsis (Acute) Septic joint of left knee joint (Acute) 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 Has h/o CKD and bioprosthetic AVR - repeat bcx neg since 08/29. Taken to OR 08/[address] Bryant for debridement with poly exchange. Had splinter hemorrhage on L 2nd toe, no other signs of endocarditis. Port placed. TIM with no veg seen. Continue ampicillin iv, stop date 10/10/17 for 6 week course. After that, will need long course of po amoxicillin. Weekly bmp, cbc, and esr while on iv abx. VINOD on CKD - neph following. Pending urine eos. Cr stable. will follow
[2017-09-10 11:41] LABS: Bedside Glucose 163 mg/dL (70-110)
[2017-09-10 16:45] VITALS: BP 146/72; PULSE 71; RESP 18; TEMP 36.8; O2SAT 97
[2017-09-10 17:01] LABS: Bedside Glucose 100 mg/dL (70-110)
[2017-09-10 21:26] LABS: Bedside Glucose 143 mg/dL (70-110)
[2017-09-10] MEDS: MELATONIN 10 MG TABLET PO (21:29)
[2017-09-11] MEDS: Docusate Sodium 100 MG Capsule PO ×2 (05:49→17:06)
[2017-09-11] MEDS: Labetalol 100 MG Tablet PO ×2 (05:50→17:07)
[2017-09-11] MEDS: APIXABAN 2.5 MG TABLET PO ×2 (05:50→17:06)
[2017-09-11] MEDS: Isosorbide Mononitrate 60 MG Tablet PO (05:50)
[2017-09-11] MEDS: dilTIAZem CD 180 MG Capsule PO ×2 (05:51→17:06)
[2017-09-11 06:56] LABS: Bedside Glucose 114 mg/dL (70-110)
[2017-09-11] MEDS: Ferrous Sulfate 325 MG Tablet PO (08:29)
[2017-09-11] MEDS: Glucerna Shake 120 ML LIQUID PO ×3 (08:29→17:07)
[2017-09-11] MEDS: Multivitamins,Therapeutic Tablet 1 TABLET PO (08:29)
[2017-09-11] MEDS: Ascorbic Acid 500 MG Tablet 1000 MG PO (08:29)
[2017-09-11 12:01] LABS: Bedside Glucose 187 mg/dL (70-110)
--- NOTE | 2017-09-11 15:32 | CASEMGMT ---
Brief interview for mental status (BIMS) and resident mood interview (PHQ-9) completed on this day. BIMS score 15. PHQ-9 score 08/01
[2017-09-11 16:00] VITALS: BP 126/73; PULSE 109; RESP 17; TEMP 37.1; O2SAT 95
[2017-09-11] MEDS: 0.9% NaCl VAD Flush 10 ML IV (17:18)
[2017-09-11] MEDS: MELATONIN 10 MG TABLET PO (21:08)
[2017-09-12 05:36] LABS: Absolute Lymphocyte Count 0.93 X10^3/ul (0.83-4.51); Absolute Neutrophil Count 4.8 X10^3/uL (2.0-7.7); Basophil# 0.04 X10^3/uL; Basophil% 0.6 % (0-1); Eosinophil# 0.33 X10^3/uL; Eosinophils% 4.8 % (0-5); Hematocrit 27.8 % (40-54); Hemoglobin 8.9 g/dl (13.0-16.5); Lymphocyte # 0.93 X10^3/ul (4.0); Lymphocyte % 13.6 % (19-41); Mean Corpuscular Hgb 28.2 pg (27.0-32.0); Mean Platelet Vol. 8.5 fl (6.2-12.0); Monocyte# 0.68 X10^3/uL; Neutrophil # 4.83 X10^3/uL (2.7-7.7); Neutrophil % 70.7 % (47-70); Platelet Count 246 K/mm3 (150-450); RBC Distribution Width CV 14.9 % (11.6-14.6); RBC Distribution Width SD 46.8 fl (35.1-43.9); Red Blood Count 3.16 M/mm3 (4.6-6.2); White Blood Count 6.8 K/mm3 (4.4-11.0)
[2017-09-12 05:37] LABS: POSITIVE COUNT NO; POSITIVE DIFFERENTIAL NO; POSITIVE MORPHOLOGY NO
[2017-09-12] MEDS: 0.9% NaCl IVPB Med Flush (250 mL) 15 ML IV (05:38)
[2017-09-12] MEDS: 0.9% NaCl VAD Flush 10 ML IV (05:39)
[2017-09-12] MEDS: Docusate Sodium 100 MG Capsule PO ×2 (05:41→17:29)
[2017-09-12] MEDS: APIXABAN 2.5 MG TABLET PO ×2 (05:41→17:29)
[2017-09-12] MEDS: Isosorbide Mononitrate 60 MG Tablet PO (05:41)
[2017-09-12] MEDS: Labetalol 100 MG Tablet PO ×2 (05:41→17:29)
[2017-09-12] MEDS: dilTIAZem CD 180 MG Capsule PO ×2 (05:42→17:29)
[2017-09-12 05:50] LABS: Anion Gap 10 (5-15); BUN 42 mg/dL (7-18); BUN/Creat Ratio 13.4 RATIO (10-20); Calcium,Total 8.4 mg/dL (8.5-10.1); Chloride 105 mmol/L (98-107); Creatinine, Serum 3.13 mg/dL (0.70-1.30); EST Glomerular Filtration Rate 21 mL/min (>60); Est Glom Filt Rate - Afr Amer 25 mL/min (>60); Estimated Creatinine Clearance 20.73 ml/min; Glucose 109 mg/dL (74-106); Potassium 3.8 mmol/L (3.5-5.1); Sodium Level 141 mmol/L (136-145)
[2017-09-12 06:05] LABS: Erythrocyte Sedimentation Rate 52 mm/hr (0-20)
[2017-09-12 06:41] LABS: Bedside Glucose 115 mg/dL (70-110)
[2017-09-12] MEDS: Glucerna Shake 120 ML LIQUID PO ×2 (08:08→11:35)
[2017-09-12] MEDS: Ascorbic Acid 500 MG Tablet 1000 MG PO (08:09)
[2017-09-12] MEDS: Ferrous Sulfate 325 MG Tablet PO (08:09)
[2017-09-12] MEDS: Multivitamins,Therapeutic Tablet 1 TABLET PO (08:09)
[2017-09-12] MEDS: Tuberculin,Purif.prot.deriv. 50 TU/ML Vial 5 ML ID (11:35)
[2017-09-12 16:00] VITALS: BP 147/82; PULSE 71; RESP 20; TEMP 36.7; O2SAT 97
[2017-09-12] MEDS: MELATONIN 10 MG TABLET PO (20:30)
[2017-09-13] MEDS: dilTIAZem CD 180 MG Capsule PO ×2 (05:55→17:01)
[2017-09-13] MEDS: Labetalol 100 MG Tablet PO ×2 (05:55→17:01)
[2017-09-13] MEDS: Isosorbide Mononitrate 60 MG Tablet PO (05:55)
[2017-09-13] MEDS: Docusate Sodium 100 MG Capsule PO ×2 (05:56→17:01)
[2017-09-13] MEDS: APIXABAN 2.5 MG TABLET PO ×2 (05:56→17:01)
[2017-09-13] MEDS: 0.9% NaCl VAD Flush 10 ML IV ×2 (05:56→17:03)
[2017-09-13 06:15] LABS: Bedside Glucose 120 mg/dL (70-110)
[2017-09-13] MEDS: Multivitamins,Therapeutic Tablet 1 TABLET PO (08:20)
[2017-09-13] MEDS: Iron Polysaccharide Complex 150 MG CAPSULE PO (08:20)
[2017-09-13] MEDS: Ascorbic Acid 500 MG Tablet 1000 MG PO (08:20)
[2017-09-13] MEDS: Glucerna Shake 120 ML LIQUID PO ×3 (08:20→17:01)
[2017-09-13 16:00] VITALS: BP 153/79; PULSE 68; RESP 20; TEMP 36.8; O2SAT 95
[2017-09-13] MEDS: 0.9% NaCl IVPB Med Flush (250 mL) 15 ML IV (17:02)
[2017-09-13] MEDS: MELATONIN 10 MG TABLET PO (20:25)
[2017-09-14] MEDS: Docusate Sodium 100 MG Capsule PO ×2 (06:19→16:33)
[2017-09-14] MEDS: Isosorbide Mononitrate 60 MG Tablet PO (06:19)
[2017-09-14] MEDS: dilTIAZem CD 180 MG Capsule PO ×2 (06:19→16:33)
[2017-09-14] MEDS: Labetalol 100 MG Tablet PO ×2 (06:19→16:33)
[2017-09-14] MEDS: APIXABAN 2.5 MG TABLET PO (06:19)
[2017-09-14] MEDS: 0.9% NaCl VAD Flush 10 ML IV ×3 (06:24→18:32)
[2017-09-14 06:46] LABS: Bedside Glucose 115 mg/dL (70-110)
[2017-09-14] MEDS: Glucerna Shake 120 ML LIQUID PO ×3 (08:41→16:56)
[2017-09-14] MEDS: Multivitamins,Therapeutic Tablet 1 TABLET PO (08:42)
[2017-09-14] MEDS: Ascorbic Acid 500 MG Tablet 1000 MG PO (08:42)
[2017-09-14] MEDS: Iron Polysaccharide Complex 150 MG CAPSULE PO (08:42)
--- NOTE | 2017-09-14 12:50 | NURSING ---
Pt left for Dr. alfred, accompanied by , picked up by son.
[2017-09-14 16:33] VITALS: BP 172/89; PULSE 72
[2017-09-14] MEDS: Aspirin 81 MG TAB.CHEW PO (16:33)
[2017-09-14] MEDS: MELATONIN 10 MG TABLET PO (20:22)
[2017-09-15] MEDS: 0.9% NaCl VAD Flush 10 ML IV ×2 (05:19→17:31)
[2017-09-15] MEDS: 0.9% NaCl IVPB Med Flush (250 mL) 15 ML IV ×2 (05:19→17:31)
[2017-09-15] MEDS: Docusate Sodium 100 MG Capsule PO ×2 (05:33→17:33)
[2017-09-15] MEDS: Labetalol 100 MG Tablet PO ×2 (05:33→17:32)
[2017-09-15] MEDS: Isosorbide Mononitrate 60 MG Tablet PO (05:33)
[2017-09-15] MEDS: dilTIAZem CD 180 MG Capsule PO ×2 (05:33→17:33)
[2017-09-15 05:40] VITALS: BP 164/85
[2017-09-15 06:51] LABS: Bedside Glucose 123 mg/dL (70-110)
[2017-09-15] MEDS: Aspirin 81 MG TAB.CHEW PO ×2 (09:40→17:33)
[2017-09-15] MEDS: Ascorbic Acid 500 MG Tablet 1000 MG PO (09:40)
[2017-09-15] MEDS: Iron Polysaccharide Complex 150 MG CAPSULE PO (09:40)
[2017-09-15] MEDS: Glucerna Shake 120 ML LIQUID PO ×3 (09:40→17:33)
[2017-09-15] MEDS: Multivitamins,Therapeutic Tablet 1 TABLET PO (09:40)
[2017-09-15 16:00] VITALS: BP 160/80; PULSE 76; RESP 17; TEMP 36.6; O2SAT 97
--- NOTE | 2017-09-15 17:55 | NURSING ---
UPDATED DR. FIERRO ON ELEVATED BP'S. NO N.O. AT THIS TIME. LEAVE MEDS ALONE AT THIS TIME.
[2017-09-15] MEDS: MELATONIN 10 MG TABLET PO (21:01)
[2017-09-15] MEDS: Polyethylene Glycol 3350 17 GM PACKET PO (21:02)
[2017-09-16] MEDS: Labetalol 100 MG Tablet PO ×2 (05:43→17:35)
[2017-09-16] MEDS: dilTIAZem CD 180 MG Capsule PO ×2 (05:43→17:35)
[2017-09-16] MEDS: Polyethylene Glycol 3350 17 GM PACKET PO (05:43)
[2017-09-16] MEDS: Docusate Sodium 100 MG Capsule PO ×2 (05:43→17:35)
[2017-09-16] MEDS: Isosorbide Mononitrate 60 MG Tablet PO (05:43)
[2017-09-16] MEDS: 0.9% NaCl VAD Flush 10 ML IV ×2 (05:47→17:36)
[2017-09-16] MEDS: 0.9% NaCl IVPB Med Flush (250 mL) 15 ML IV (05:48)
[2017-09-16 07:00] LABS: Bedside Glucose 120 mg/dL (70-110)
[2017-09-16] MEDS: Glucerna Shake 120 ML LIQUID PO ×3 (07:13→17:38)
[2017-09-16] MEDS: Multivitamins,Therapeutic Tablet 1 TABLET PO (07:14)
[2017-09-16] MEDS: Iron Polysaccharide Complex 150 MG CAPSULE PO (07:14)
[2017-09-16] MEDS: Ascorbic Acid 500 MG Tablet 1000 MG PO (07:14)
[2017-09-16] MEDS: Aspirin 81 MG TAB.CHEW PO ×2 (07:14→17:35)
--- NOTE | 2017-09-16 10:03 | CASEMGMT ---
Plan of care meeting held. Resident present as well resident spouse. Resident plans to discharge home with spouse when able. Resident planning to continue with stay until I.V. therapy is completed on 10/10/17 with a proposed discharge of 10/11/17. Resident to continue with further care and treatment on the Transitional Care Unit until time of discharge. Support given. Proposed discharge date: 10/11/17 PLAN: Discharge home with spouse. Shakira LICEA, SEED PRODUCTION FIELD SUPERVISOR
--- NOTE | 2017-09-16 12:45 | PN.ID_ITS ---
Patient Problems: Active and Suspected Problems Sepsis (Acute) Septic joint of left knee joint (Acute) Subjective: Feeling well, working with PT, no fever, no n/v/d. - Physical Exam General: Alert, Cooperative, No apparent distress Lungs: Clear to auscultation, Normal air movement Cardiovascular: Regular rate, Regular Rhythm, Murmur Abdomen: Soft, Non Tender, Non-Distended Skin: No rashes, - - mild L knee swelling Vital Signs Temp Pulse Resp BP Pulse Ox 97.9 F 76 17 160/80 H 97 09/15/17 16:00 09/15/17 16:00 09/15/17 16:00 09/15/17 16:00 09/15/17 16:00 Oxygen Flow Rate (L/min) 2 Oxygen Delivery Method Room Air Weight: 92.8 kg Body Mass Index (BMI) 30.9 Finger Stick Blood Glucose 122 Intake and Output for Last 24 Hours 09/14/17 09/15/17 09/16/17 23:59 23:59 23:59 Intake Total 840 / 840 870 / 870 120 / 120 Output Total 1800 / 1800 1999 / 1999 Balance 840 / 840 -930 / -930 -1880 / -1880 POC Glucose 09/16/17 06:26 POC Glucose 120 H Route of nutrition/ use of supplements: [] Nutritional Intake: [] IV Site: [] Irving Catheter: [] - Assessment/Plan Antibiotics: [] Assessment/Plan: [] Active and Suspected Problems Sepsis (Acute) Septic joint of left knee joint (Acute) 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 Has h/o CKD and bioprosthetic AVR - repeat bcx neg since 08/29. Taken to OR 08/[address] Bryant for debridement with poly exchange. Had splinter hemorrhage on L 2nd toe , no other signs of endocarditis. Port placed. TIM with no veg seen. Continue ampicillin iv, stop date 10/10/17 for 6 week course. After that, will need long course of po amoxicillin. Weekly bmp, cbc, and esr while on iv abx. VINOD on CKD - Cr slightly improved will follow
[2017-09-16] MEDS: Bisacodyl 5 MG Tablet 10 MG PO (13:29)
[2017-09-16 15:50] VITALS: BP 157/73; PULSE 75; RESP 18; TEMP 36.7; O2SAT 97
--- NOTE | 2017-09-16 16:01 | CHAPLAIN ---
Type of Pastoral Visit ___ Initial Visit _x__ Follow-up Visit ___ On-call Visit ___ General Patient Visit ___ Spiritual Assessment ___ Family Conference ___ Bereavement ___ Rapid Response ___ Code Blue ___ Other (describe below) Pastoral Care Referral From _x__ Patient ___ Family ___ Nurse ___ Physician ___ Shell Shop Supervisor ___ Film Historian ___ Other (describe below) Sacrament/Intervention _x__ Active listening ___ Anointing ___ Methodist ___ Bereavement ___ Communion _x__ Tasha exploration ___ _x__ Life review _x__ Prayer ___ Reconciliation ___ Sacrament of Sick _x__ Supportive presence ___ Wedding ___ Other (describe below) Pastoral Comments patient is a talker; pt likes having someone to talk with; pt admits to some discouragement but has a clear goal of getting well and going back to work; pt says he wants to work because that is what he loves to do; pt has lots of zoroastrianism thoughts and wants to share his tasha;
[2017-09-16] MEDS: MELATONIN 10 MG TABLET PO (20:14)
[2017-09-16 20:15] VITALS: PULSE 83; O2SAT 95
[2017-09-17] MEDS: dilTIAZem CD 180 MG Capsule PO ×2 (06:09→18:17)
[2017-09-17] MEDS: Docusate Sodium 100 MG Capsule PO ×2 (06:09→18:17)
[2017-09-17] MEDS: 0.9% NaCl VAD Flush 10 ML IV ×3 (06:10→18:13)
[2017-09-17] MEDS: Isosorbide Mononitrate 60 MG Tablet PO (06:10)
[2017-09-17] MEDS: Labetalol 100 MG Tablet PO ×2 (06:10→18:17)
[2017-09-17] MEDS: Polyethylene Glycol 3350 17 GM PACKET PO (06:10)
[2017-09-17 06:20] LABS: Bedside Glucose 115 mg/dL (70-110)
[2017-09-17] MEDS: Glucerna Shake 120 ML LIQUID PO ×3 (07:58→18:12)
[2017-09-17] MEDS: Aspirin 81 MG TAB.CHEW PO ×2 (07:59→18:17)
[2017-09-17] MEDS: Iron Polysaccharide Complex 150 MG CAPSULE PO (07:59)
[2017-09-17] MEDS: Multivitamins,Therapeutic Tablet 1 TABLET PO (07:59)
[2017-09-17] MEDS: Ascorbic Acid 500 MG Tablet 1000 MG PO (07:59)
--- NOTE | 2017-09-17 14:02 | CASEMGMT ---
Brief interview for mental status (BIMS) and resident mood interview (PHQ-9) completed on this day. BIMS score 15. PHQ-9 score 08/01
--- NOTE | 2017-09-17 14:55 | MDS.RN ---
Information for the mds was obtained from review of the clinical record, interview of resident, staff, and direct observation of resident's care.
[2017-09-17 15:44] VITALS: BP 151/80; PULSE 76; RESP 18; TEMP 36.7; O2SAT 97
[2017-09-17] MEDS: MELATONIN 10 MG TABLET PO (21:08)
[2017-09-17 21:10] VITALS: PULSE 73; O2SAT 97
[2017-09-18] MEDS: Docusate Sodium 100 MG Capsule PO ×2 (04:37→17:09)
[2017-09-18] MEDS: dilTIAZem CD 180 MG Capsule PO ×2 (04:37→17:09)
[2017-09-18] MEDS: Labetalol 100 MG Tablet PO ×2 (04:38→17:09)
[2017-09-18] MEDS: Isosorbide Mononitrate 60 MG Tablet PO (04:38)
[2017-09-18] MEDS: 0.9% NaCl VAD Flush 10 ML IV ×2 (05:44→17:13)
[2017-09-18 06:20] LABS: Bedside Glucose 122 mg/dL (70-110)
[2017-09-18] MEDS: Multivitamins,Therapeutic Tablet 1 TABLET PO (07:48)
[2017-09-18] MEDS: Glucerna Shake 120 ML LIQUID PO ×3 (07:48→17:09)
[2017-09-18] MEDS: Aspirin 81 MG TAB.CHEW PO ×2 (07:48→17:09)
[2017-09-18] MEDS: Iron Polysaccharide Complex 150 MG CAPSULE PO (07:48)
[2017-09-18] MEDS: Ascorbic Acid 500 MG Tablet 1000 MG PO (07:49)
[2017-09-18 15:43] VITALS: BP 146/66; PULSE 75; RESP 18; TEMP 36.8; O2SAT 95
[2017-09-18] MEDS: MELATONIN 10 MG TABLET PO (20:34)
[2017-09-19] MEDS: 0.9% NaCl VAD Flush 10 ML IV ×5 (05:21→17:08)
[2017-09-19] MEDS: 0.9% NaCl IVPB Med Flush (250 mL) 15 ML IV (05:23)
[2017-09-19] MEDS: Isosorbide Mononitrate 60 MG Tablet PO (05:30)
[2017-09-19] MEDS: Labetalol 100 MG Tablet PO ×2 (05:30→17:07)
[2017-09-19] MEDS: Docusate Sodium 100 MG Capsule PO ×2 (05:30→17:07)
[2017-09-19] MEDS: dilTIAZem CD 180 MG Capsule PO ×2 (05:30→17:08)
[2017-09-19 06:26] LABS: Absolute Lymphocyte Count 1.03 X10^3/ul (0.83-4.51); Basophil# 0.03 X10^3/uL; Basophil% 0.5 % (0-1); Eosinophil# 0.37 X10^3/uL; Eosinophils% 6.2 % (0-5); Hematocrit 29.4 % (40-54); Hemoglobin 9.2 g/dl (13.0-16.5); Lymphocyte # 1.03 X10^3/ul (4.0); Lymphocyte % 17.2 % (19-41); Mean Corp Hgb Conc 31.3 g/gl (32-36); Mean Corpuscular Hgb 27.1 pg (27.0-32.0); Mean Corpuscular Volume 86.5 fL (80-94); Mean Platelet Vol. 8.7 fl (6.2-12.0); Monocyte# 0.52 X10^3/uL; Monocyte% 8.7 % (0-10); Neutrophil # 4.04 X10^3/uL (2.7-7.7); Neutrophil % 67.2 % (47-70); Platelet Count 157 K/mm3 (150-450); RBC Distribution Width CV 15.1 % (11.6-14.6); RBC Distribution Width SD 47.5 fl (35.1-43.9)
[2017-09-19 06:34] LABS: POSITIVE COUNT NO; POSITIVE DIFFERENTIAL NO; POSITIVE MORPHOLOGY NO
[2017-09-19 06:37] LABS: Erythrocyte Sedimentation Rate 75 mm/hr (0-20)
[2017-09-19 06:45] LABS: Bedside Glucose 134 mg/dL (70-110)
[2017-09-19 07:41] LABS: Anion Gap 10 (5-15); BUN 48 mg/dL (7-18); BUN/Creat Ratio 16.1 RATIO (10-20); Calcium,Total 8.6 mg/dL (8.5-10.1); Chloride 105 mmol/L (98-107); Creatinine, Serum 2.99 mg/dL (0.70-1.30); EST Glomerular Filtration Rate 22 mL/min (>60); Est Glom Filt Rate - Afr Amer 26 mL/min (>60); Glucose 109 mg/dL (74-106); Potassium 3.9 mmol/L (3.5-5.1); Sodium Level 139 mmol/L (136-145)
[2017-09-19] MEDS: Glucerna Shake 120 ML LIQUID PO ×3 (08:07→17:07)
[2017-09-19] MEDS: Ascorbic Acid 500 MG Tablet 1000 MG PO (08:07)
[2017-09-19] MEDS: Multivitamins,Therapeutic Tablet 1 TABLET PO (08:07)
[2017-09-19] MEDS: Aspirin 81 MG TAB.CHEW PO ×2 (08:07→17:07)
[2017-09-19] MEDS: Iron Polysaccharide Complex 150 MG CAPSULE PO (08:07)
[2017-09-19 16:00] VITALS: BP 183/90; PULSE 78; RESP 15; TEMP 36.7; O2SAT 95
[2017-09-19] MEDS: MELATONIN 10 MG TABLET PO (21:34)
[2017-09-20] MEDS: Docusate Sodium 100 MG Capsule PO ×2 (05:31→17:08)
[2017-09-20] MEDS: Isosorbide Mononitrate 60 MG Tablet PO (05:31)
[2017-09-20] MEDS: dilTIAZem CD 180 MG Capsule PO ×2 (05:31→17:08)
[2017-09-20] MEDS: Labetalol 100 MG Tablet PO ×2 (05:31→17:08)
[2017-09-20] MEDS: Glucerna Shake 120 ML LIQUID PO ×2 (05:33→12:13)
[2017-09-20 07:06] LABS: Bedside Glucose 142 mg/dL (70-110)
[2017-09-20] MEDS: Multivitamins,Therapeutic Tablet 1 TABLET PO (07:47)
[2017-09-20] MEDS: Aspirin 81 MG TAB.CHEW PO ×2 (07:47→17:08)
[2017-09-20] MEDS: Iron Polysaccharide Complex 150 MG CAPSULE PO (07:47)
[2017-09-20] MEDS: Ascorbic Acid 500 MG Tablet 1000 MG PO (07:47)
[2017-09-20 16:00] VITALS: BP 172/85; PULSE 98; RESP 16; TEMP 36.4; O2SAT 99
[2017-09-20] MEDS: MELATONIN 10 MG TABLET PO (21:39)
[2017-09-21] MEDS: dilTIAZem CD 180 MG Capsule PO ×2 (06:28→17:31)
[2017-09-21] MEDS: Isosorbide Mononitrate 60 MG Tablet PO (06:28)
[2017-09-21] MEDS: Docusate Sodium 100 MG Capsule PO ×2 (06:29→17:31)
[2017-09-21] MEDS: Labetalol 100 MG Tablet PO ×2 (06:29→17:31)
[2017-09-21 06:51] LABS: Bedside Glucose 121 mg/dL (70-110)
[2017-09-21] MEDS: Multivitamins,Therapeutic Tablet 1 TABLET PO (08:21)
[2017-09-21] MEDS: Aspirin 81 MG TAB.CHEW PO ×2 (08:21→17:31)
[2017-09-21] MEDS: Ascorbic Acid 500 MG Tablet 1000 MG PO (08:22)
[2017-09-21] MEDS: Iron Polysaccharide Complex 150 MG CAPSULE PO (08:23)
[2017-09-21] MEDS: Glucerna Shake 120 ML LIQUID PO ×3 (08:35→17:29)
[2017-09-21 16:00] VITALS: BP 157/84; PULSE 73; RESP 20; TEMP 36.8; O2SAT 97
[2017-09-21] MEDS: 0.9% NaCl VAD Flush 10 ML IV (18:11)
[2017-09-21] MEDS: 0.9% NaCl IVPB Med Flush (250 mL) 15 ML IV (18:16)
[2017-09-21] MEDS: MELATONIN 10 MG TABLET PO (19:58)
[2017-09-22] MEDS: Isosorbide Mononitrate 60 MG Tablet PO (06:00)
[2017-09-22] MEDS: Docusate Sodium 100 MG Capsule PO ×2 (06:00→17:14)
[2017-09-22] MEDS: 0.9% NaCl VAD Flush 10 ML IV ×2 (06:00→17:09)
[2017-09-22] MEDS: Labetalol 100 MG Tablet PO ×2 (06:00→17:14)
[2017-09-22] MEDS: dilTIAZem CD 180 MG Capsule PO ×2 (06:00→17:14)
[2017-09-22 06:55] LABS: Bedside Glucose 116 mg/dL (70-110)
--- NOTE | 2017-09-22 07:05 | NURSING ---
Pt with nose bleed this AM. Pt reports air is dry. Will provide humidifier.
[2017-09-22] MEDS: Glucerna Shake 120 ML LIQUID PO ×3 (08:04→17:12)
[2017-09-22] MEDS: Aspirin 81 MG TAB.CHEW PO ×2 (08:04→17:13)
[2017-09-22] MEDS: Ascorbic Acid 500 MG Tablet 1000 MG PO (08:04)
[2017-09-22] MEDS: Iron Polysaccharide Complex 150 MG CAPSULE PO (08:04)
[2017-09-22] MEDS: Multivitamins,Therapeutic Tablet 1 TABLET PO (08:04)
[2017-09-22 15:30] VITALS: BP 145/78; PULSE 75; RESP 16; TEMP 36.4; O2SAT 96
[2017-09-22] MEDS: MELATONIN 10 MG TABLET PO (21:35)
[2017-09-23 06:06] LABS: Bedside Glucose 105 mg/dL (70-110)
[2017-09-23] MEDS: dilTIAZem CD 180 MG Capsule PO ×2 (06:07→17:18)
[2017-09-23] MEDS: Docusate Sodium 100 MG Capsule PO ×2 (06:07→17:18)
[2017-09-23] MEDS: Isosorbide Mononitrate 60 MG Tablet PO (06:07)
[2017-09-23] MEDS: Labetalol 100 MG Tablet PO ×2 (06:07→17:17)
[2017-09-23] MEDS: 0.9% NaCl IVPB Med Flush (250 mL) 15 ML IV (06:08)
[2017-09-23] MEDS: 0.9% NaCl VAD Flush 10 ML IV ×2 (06:08→17:18)
[2017-09-23] MEDS: Aspirin 81 MG TAB.CHEW PO ×2 (07:28→17:18)
[2017-09-23] MEDS: Glucerna Shake 120 ML LIQUID PO ×3 (07:28→17:17)
[2017-09-23] MEDS: Ascorbic Acid 500 MG Tablet 1000 MG PO (07:28)
[2017-09-23] MEDS: Multivitamins,Therapeutic Tablet 1 TABLET PO (07:28)
[2017-09-23] MEDS: Iron Polysaccharide Complex 150 MG CAPSULE PO (07:29)
--- NOTE | 2017-09-23 10:56 | PN.ID_ITS ---
Patient Problems: Active and Suspected Problems Sepsis (Acute) Septic joint of left knee joint (Acute) Subjective: Doing well, feeling good. No fever, no n/v/d. Knee improving, less sore and warm. - Physical Exam General: Alert, Cooperative Lungs: Clear to auscultation, Normal air movement Cardiovascular: Regular rate, Regular Rhythm, Murmur Abdomen: Soft, Non Tender, Non-Distended Skin: No rashes Vital Signs Temp Pulse Resp BP Pulse Ox 97.6 F L 75 16 145/78 H 96 09/22/17 15:30 09/22/17 15:30 09/22/17 15:30 09/22/17 15:30 09/22/17 15:30 Oxygen Flow Rate (L/min) 2 Oxygen Delivery Method Room Air Weight: 92.5 kg Body Mass Index (BMI) 30.9 Finger Stick Blood Glucose 122 Intake and Output for Last 24 Hours 09/21/17 09/22/17 09/23/17 23:59 23:59 23:59 Intake Total 1260 / 1260 960 / 960 300 / 300 Output Total 1500 / 1500 2000 / 2000 1800 / 1800 Balance -240 / -240 -1040 / -1040 -1500 / -1500 POC Glucose 09/23/17 06:01 POC Glucose 105 Medical Necessity - Tobacco Use Smoking Status: Former smoker Tobacco Use: Non-smoker Route of nutrition/ use of supplements: [] Nutritional Intake: [] IV Site: [] Irving Catheter: [] - Assessment/Plan Antibiotics: [] Assessment/Plan: [] Active and Suspected Problems Sepsis (Acute) Septic joint of left knee joint (Acute) 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 Has h/o CKD and bioprosthetic AVR - repeat bcx neg since 08/29. Taken to OR 08/[address] Bryant for debridement with poly exchange. Had splinter hemorrhage on L 2nd toe , no other signs of endocarditis. Port placed. TIM with no veg seen. Continue ampicillin iv, stop date 10/10/17 for 6 week course. After that, will need long course of po amoxicillin 875mg bid. Weekly bmp, cbc, and esr while on iv abx. VINOD on CKD - Cr continues to improve will follow
[2017-09-23 15:44] VITALS: BP 166/88; PULSE 75; RESP 18; TEMP 36.8; O2SAT 98
[2017-09-23] MEDS: MELATONIN 10 MG TABLET PO (19:57)
[2017-09-24] MEDS: dilTIAZem CD 180 MG Capsule PO ×2 (05:56→17:34)
[2017-09-24] MEDS: Docusate Sodium 100 MG Capsule PO ×2 (05:57→17:34)
[2017-09-24] MEDS: Isosorbide Mononitrate 60 MG Tablet PO (05:57)
[2017-09-24] MEDS: Labetalol 100 MG Tablet PO ×2 (05:57→17:34)
[2017-09-24] MEDS: 0.9% NaCl VAD Flush 10 ML IV ×3 (06:02→17:42)
[2017-09-24 06:21] LABS: Bedside Glucose 104 mg/dL (70-110)
[2017-09-24 06:41] VITALS: PULSE 72; O2SAT 97
[2017-09-24] MEDS: Iron Polysaccharide Complex 150 MG CAPSULE PO (07:44)
[2017-09-24] MEDS: Glucerna Shake 120 ML LIQUID PO ×3 (07:44→17:33)
[2017-09-24] MEDS: Aspirin 81 MG TAB.CHEW PO ×2 (07:44→17:34)
[2017-09-24] MEDS: Multivitamins,Therapeutic Tablet 1 TABLET PO (07:44)
[2017-09-24] MEDS: Ascorbic Acid 500 MG Tablet 1000 MG PO (07:44)
[2017-09-24 15:20] VITALS: BP 164/95; PULSE 81; RESP 18; TEMP 36.9; O2SAT 99
[2017-09-24] MEDS: MELATONIN 10 MG TABLET PO (20:58)
--- NOTE | 2017-09-24 22:30 | NURSING ---
Spouse informed this nurse Dr Alvarado was into see patient today. Per pt, Dr Alvarado would like port removed after ATB course. concerned about pt begin a bleed risk after removal. If port is to be removed, spouse would like pt to remain on TCU for 24hours after procedure. Message left with Roller Inspector And Mender.
[2017-09-25] MEDS: 0.9% NaCl VAD Flush 10 ML IV ×3 (05:35→17:36)
[2017-09-25] MEDS: 0.9% NaCl IVPB Med Flush (250 mL) 15 ML IV ×2 (05:36→17:36)
[2017-09-25] MEDS: dilTIAZem CD 180 MG Capsule PO ×2 (05:46→17:38)
[2017-09-25] MEDS: Labetalol 100 MG Tablet PO ×2 (05:46→17:38)
[2017-09-25] MEDS: Docusate Sodium 100 MG Capsule PO ×2 (05:46→17:37)
[2017-09-25] MEDS: Isosorbide Mononitrate 60 MG Tablet PO (05:46)
[2017-09-25 06:15] LABS: Bedside Glucose 107 mg/dL (70-110)
[2017-09-25] MEDS: Iron Polysaccharide Complex 150 MG CAPSULE PO (08:26)
[2017-09-25] MEDS: Multivitamins,Therapeutic Tablet 1 TABLET PO (08:26)
[2017-09-25] MEDS: Glucerna Shake 120 ML LIQUID PO ×3 (08:26→17:36)
[2017-09-25] MEDS: Aspirin 81 MG TAB.CHEW PO ×2 (08:27→17:37)
[2017-09-25] MEDS: Ascorbic Acid 500 MG Tablet 1000 MG PO (08:27)
--- NOTE | 2017-09-25 11:55 | CASEMGMT ---
Brief interview for mental status (BIMS) and resident mood interview (PHQ-9) completed on this day. BIMS score 14/15. PHQ-9 score
--- NOTE | 2017-09-25 14:06 | PCM.TCUNOT ---
Subjective: Resident seen in room. Sitting in recliner. He has no complaints. His only concern is port removal after finish intravenous antibiotics, resident tends to bleed, and he and his spouse would like port removed while on TCU, then observed overnight prior to discharge home. Vitals/I&O's: Vital Signs Temp Pulse Resp BP Pulse Ox 98.4 F 81 18 164/95 H 99 09/24/17 15:20 09/24/17 15:20 09/24/17 15:20 09/24/17 15:20 09/24/17 15:20 Oxygen Flow Rate (L/min) 2 Oxygen Delivery Method Room Air Weight: 92.5 kg Body Mass Index (BMI) 30.9 Finger Stick Blood Glucose 122 Intake and Output for Last 24 Hours 09/23/17 09/24/17 09/25/17 23:59 23:59 23:59 Intake Total 1160 / 1160 720 / 720 840 / 840 Output Total 1800 / 1800 1550 / 1550 1700 / 1700 Balance -640 / -640 -830 / -830 -860 / -860 Laboratory Results 09/25/17 05:58: POC Glucose 107 Past Medical History Past Medical History (Chronic Problems): Chronic Problems Diabetes mellitus (Chronic) Hyperlipidemia (Chronic) Hypertension (Chronic) Osteoarthritis of left knee (Chronic) S/P CABG x 3 (Chronic) Triple bypass in July [address] [facility] in [place] CAD (coronary artery disease) (Chronic) Hypertension, essential (Chronic) DM2 (diabetes mellitus, type 2) (Chronic) Renal cell cancer (Chronic) S/P nephrectomy on January 13, 2016 at Chronic kidney disease (Chronic) Solitary kidney (Chronic) Aortic stenosis (Chronic) Allergies losartan potassium [From Cozaar] Allergy (Severe, Verified 08/28/17 04:00) Other valsartan [From Diovan HCT] Allergy (Severe, Verified 08/28/17 04:00) Other amlodipine besylate [From Norvasc] Allergy (Verified 08/28/17 04:00) Other doxazosin mesylate [From Cardura] Allergy (Verified 08/28/17 04:00) Other furosemide [From Lasix] Allergy (Verified 09/05/17 12:28) Other states causes urinary system to shut down and he can't urinate hydrochlorothiazide Allergy (Verified 08/28/17 04:00) Other metoprolol succinate [From Toprol XL] Allergy (Verified 08/28/17 04:00) Other simvastatin Allergy (Verified 08/28/17 04:00) Other oxycodone [From OxyIR] Adverse Reaction (Severe, Verified 09/04/17 13:52) tremors SEVERE CONFUSION acetaminophen [From Vicodin] Adverse Reaction (Verified 09/09/17 17:18) Other hydrocodone [From Vicodin] Adverse Reaction (Verified 09/09/17 17:18) Other vicodin Adverse Reaction (Severe, Uncoded 09/04/17 13:52) Other SEVERE CONFUSION Hydrogenated Vegetable Oil Adverse Reaction (Uncoded 08/28/17 04:00) Upset Stomach Home Medications: Ambulatory Orders Medication Instructions Recorded Ascorbic Acid [Vitamin C] 1,000 mg PO DAILY@0800 02/06/16 Multivitamin [Daily Multiple 1 each PO DAILY 02/06/16 Vitamin] Cholecalciferol (Vitamin D3) 2,000 unit PO DAILY 07/28/17 [Vitamin D3] Iron Polysaccharide Complex 325 mg PO DAILYCM 07/28/17 [Ferrex 150] Labetalol [Trandate (Beta Liz)] 100 mg PO BID 07/28/17 Diltiazem HCl [Diltiazem ER] 180 mg PO BID 07/29/17 Acetaminophen [Tylenol Tablet] 650 mg PO Q4H PRN PRN tablet 09/04/17 Ampicillin [Omnipen-N] 2 gm IV Q12 09/04/17 Apixaban [Eliquis] 2.5 mg PO BID 09/04/17 Bisacodyl [Dulcolax] 5 mg PO DAILY PRN PRN tablet 09/04/17 Glucerna Shake 120 ml PO TIDCM 09/04/17 Isosorbide Mononitrate [Imdur] 60 mg PO DAILY 09/04/17 Senna/Docusate Sodium [Senokot-S] 2 tablet PO BID 09/04/17 Polyethylene Glycol 3350 [Miralax] 17 gm PO DAILY 09/06/17 Surgical History: cataract, coronary bypass surgery - X 3., herniorrhaphy - Umbilical., total knee arthroplasty - Left., - - Hemorrhoidectomy, aortic valve replacement (bovine), cardiac stent, right nephrectomy 01/15/2016. Psychiatric History: No pertinent psych hx Lives: Spouse/ Significant Other Smoking Status: Former smoker Tobacco Use: Non-smoker Alcohol: None Drugs: None - *Family History Sibling History Items: Diabetes Paternal History Items: No pertinent history Maternal History Items: Cancer - breast Review of Systems Constitutional: Denies: Chills, Fever, Weight Change HEENT: Denies: Head Aches, Sinus Congestion, Sinus Drainage Cardiovascular: Denies: Chest Pain, Palpitations Respiratory: Denies: Cough, Shortness of breath at rest, Sputum production Gastrointestinal: Denies: Abdominal Pain, Nausea, Vomiting Genitourinary: Denies: Dysuria Musculoskeletal: Denies: Joint Pain, Joint Tenderness Skin: Denies: Rash, Wounds Neurological: Denies: Numbness, Tingling, Focal weakness Psychiatric: Denies: Anxiety, Depression, Homicidal Ideations, Suicidal Ideations Hematologic/ Lymphatic: Denies: Easy Bruising, Easy Bleeding Patient Problems: Active and Suspected Problems Sepsis (Acute) Septic joint of left knee joint (Acute) - Physical Exam General: Alert, Oriented x3, Cooperative HEENT: Atraumatic, PERRLA, EOMI, Normocephalic Neck: Supple, No JVD, Negative Carotid Bruits Lungs: Clear to auscultation, Normal air movement Cardiovascular: Regular rate, No murmurs Abdomen: Bowel Sounds Present, Soft, Non Tender Extremities: No edema, Capillary Refill Less than 3 Seconds Skin: No rashes, No breakdown Musculoskeletal: No Tenderness to Palpation of Joints or Extremities Neurological: Cranial nerves II-XII grossly intact Psych/Mental Status: Normal Affect, Appropriate Vital Signs Temp Pulse Resp BP Pulse Ox 98.4 F 81 18 164/95 H 99 09/24/17 15:20 09/24/17 15:20 09/24/17 15:20 09/24/17 15:20 09/24/17 15:20 Oxygen Flow Rate (L/min) 2 Oxygen Delivery Method Room Air Weight: 92.5 kg Body Mass Index (BMI) 30.9 Finger Stick Blood Glucose 122 Intake and Output for Last 24 Hours 09/23/17 09/24/17 09/25/17 23:59 23:59 23:59 Intake Total 1160 / 1160 720 / 720 840 / 840 Output Total 1800 / 1800 1550 / 1550 1700 / 1700 Balance -640 / -640 -830 / -830 -860 / -860 POC Glucose 09/25/17 05:58 POC Glucose 107 Assessment/Plan Active and Suspected Problems Sepsis (Acute) Septic joint of left knee joint (Acute) 76 year old male with below past medical history hospitalized for sepsis secondary to 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 Bryant, complicated by NSTEMI, acute on chronic kidney failure, anemia, encephalopathy, admitted to TCU with debility, for rehabilitation, strengthening, intravenous antibiotics, prior to discharge home with spouse. Debility - PT/OT. Pain - Tylenol 1000MG Q8H PRN mild pain, Tramadol 50MG Q12H PRN. Bowel - Miralax 17GM daily, Colace 100MG BID, Dulcolax 10MG [place] daily PRN. DVT prophylaxis - Aspirin 81MG BID. 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 Alvarado following, Will consult Dr. Hernandez for port removal after IV antibiotics finished. Atrial Fibrillation - Labetalol 100MG BID, Diltiazem 180MG BID, Aspirin 81MG BID. Vitamin C deficiency - Vitamin C 1000MG daily. Vitamin D deficiency - Vitamin D3 2000IU daily. Nutrition - Glucerna shake 120ML TID, MVI daily. Diabetes Mellitus II - Monitor sugars. Iron deficiency anemia - Ferrex 150MG daily. Coronary Artery Disease - Labetalol 100MG BID, Isosorbide Mononitrate 60G daily. Insomnia - Melatonin 10MG QHS.
--- NOTE | 2017-09-25 14:14 | PN_ITS ---
Subjective: Resident seen in room. Sitting in recliner. He has no complaints. His only concern is port removal after finish intravenous antibiotics, resident tends to bleed, and he and his spouse would like port removed while on TCU, then observed overnight prior to discharge home. Vitals/I&O's: Vital Signs Temp Pulse Resp BP Pulse Ox 98.4 F 81 18 164/95 H 99 09/24/17 15:20 09/24/17 15:20 09/24/17 15:20 09/24/17 15:20 09/24/17 15:20 Oxygen Flow Rate (L/min) 2 Oxygen Delivery Method Room Air Weight: 92.5 kg Body Mass Index (BMI) 30.9 Finger Stick Blood Glucose 122 Intake and Output for Last 24 Hours 09/23/17 09/24/17 09/25/17 23:59 23:59 23:59 Intake Total 1160 / 1160 720 / 720 840 / 840 Output Total 1800 / 1800 1550 / 1550 1700 / 1700 Balance -640 / -640 -830 / -830 -860 / -860 Laboratory Results 09/25/17 05:58: POC Glucose 107 Past Medical History Past Medical History (Chronic Problems): Chronic Problems Diabetes mellitus (Chronic) Hyperlipidemia (Chronic) Hypertension (Chronic) Osteoarthritis of left knee (Chronic) S/P CABG x 3 (Chronic) Triple bypass in July 2015 at [facility] in [place] CAD (coronary artery disease) (Chronic) Hypertension, essential (Chronic) DM2 (diabetes mellitus, type 2) (Chronic) Renal cell cancer (Chronic) S/P nephrectomy on January 13, 2016 at Chronic kidney disease (Chronic) Solitary kidney (Chronic) Aortic stenosis (Chronic) Allergies losartan potassium [From Cozaar] Allergy (Severe, Verified 08/28/17 04:00) Other valsartan [From Diovan HCT] Allergy (Severe, Verified 08/28/17 04:00) Other amlodipine besylate [From Norvasc] Allergy (Verified 08/28/17 04:00) Other doxazosin mesylate [From Cardura] Allergy (Verified 08/28/17 04:00) Other furosemide [From Lasix] Allergy (Verified 09/05/17 12:28) Other states causes urinary system to shut down and he can't urinate hydrochlorothiazide Allergy (Verified 08/28/17 04:00) Other metoprolol succinate [From Toprol XL] Allergy (Verified 08/28/17 04:00) Other simvastatin Allergy (Verified 08/28/17 04:00) Other oxycodone [From OxyIR] Adverse Reaction (Severe, Verified 09/04/17 13:52) tremors SEVERE CONFUSION acetaminophen [From Vicodin] Adverse Reaction (Verified 09/09/17 17:18) Other hydrocodone [From Vicodin] Adverse Reaction (Verified 09/09/17 17:18) Other vicodin Adverse Reaction (Severe, Uncoded 09/04/17 13:52) Other SEVERE CONFUSION Hydrogenated Vegetable Oil Adverse Reaction (Uncoded 08/28/17 04:00) Upset Stomach Home Medications: Ambulatory Orders Medication Instructions Recorded Ascorbic Acid [Vitamin C] 1,000 mg PO DAILY@0800 02/06/16 Multivitamin [Daily Multiple 1 each PO DAILY 02/06/16 Vitamin] Cholecalciferol (Vitamin D3) 2,000 unit PO DAILY 07/28/17 [Vitamin D3] Iron Polysaccharide Complex 325 mg PO DAILYCM 07/28/17 [Ferrex 150] Labetalol [Trandate (Beta Liz)] 100 mg PO BID 07/28/17 Diltiazem HCl [Diltiazem ER] 180 mg PO BID 07/29/17 Acetaminophen [Tylenol Tablet] 650 mg PO Q4H PRN PRN tablet 09/04/17 Ampicillin [Omnipen-N] 2 gm IV Q12 09/04/17 Apixaban [Eliquis] 2.5 mg PO BID 09/04/17 Bisacodyl [Dulcolax] 5 mg PO DAILY PRN PRN tablet 09/04/17 Glucerna Shake 120 ml PO TIDCM 09/04/17 Isosorbide Mononitrate [Imdur] 60 mg PO DAILY 09/04/17 Senna/Docusate Sodium [Senokot-S] 2 tablet PO BID 09/04/17 Polyethylene Glycol 3350 [Miralax] 17 gm PO DAILY 09/06/17 Surgical History: cataract, coronary bypass surgery - X 3., herniorrhaphy - Umbilical., total knee arthroplasty - Left., - - Hemorrhoidectomy, aortic valve replacement (bovine), cardiac stent, right nephrectomy 01/15/2016. Psychiatric History: No pertinent psych hx Lives: Spouse/ Significant Other Smoking Status: Former smoker Tobacco Use: Non-smoker Alcohol: None Drugs: None - *Family History Sibling History Items: Diabetes Paternal History Items: No pertinent history Maternal History Items: Cancer - breast Review of Systems Constitutional: Denies: Chills, Fever, Weight Change HEENT: Denies: Head Aches, Sinus Congestion, Sinus Drainage Cardiovascular: Denies: Chest Pain, Palpitations Respiratory: Denies: Cough, Shortness of breath at rest, Sputum production Gastrointestinal: Denies: Abdominal Pain, Nausea, Vomiting Genitourinary: Denies: Dysuria Musculoskeletal: Denies: Joint Pain, Joint Tenderness Skin: Denies: Rash, Wounds Neurological: Denies: Numbness, Tingling, Focal weakness Psychiatric: Denies: Anxiety, Depression, Homicidal Ideations, Suicidal Ideations Hematologic/ Lymphatic: Denies: Easy Bruising, Easy Bleeding Patient Problems: Active and Suspected Problems Sepsis (Acute) Septic joint of left knee joint (Acute) - Physical Exam General: Alert, Oriented x3, Cooperative HEENT: Atraumatic, PERRLA, EOMI, Normocephalic Neck: Supple, No JVD, Negative Carotid Bruits Lungs: Clear to auscultation, Normal air movement Cardiovascular: Regular rate, No murmurs Abdomen: Bowel Sounds Present, Soft, Non Tender Extremities: No edema, Capillary Refill Less than 3 Seconds Skin: No rashes, No breakdown Musculoskeletal: No Tenderness to Palpation of Joints or Extremities Neurological: Cranial nerves II-XII grossly intact Psych/Mental Status: Normal Affect, Appropriate Vital Signs Temp Pulse Resp BP Pulse Ox 98.4 F 81 18 164/95 H 99 09/24/17 15:20 09/24/17 15:20 09/24/17 15:20 09/24/17 15:20 09/24/17 15:20 Oxygen Flow Rate (L/min) 2 Oxygen Delivery Method Room Air Weight: 92.5 kg Body Mass Index (BMI) 30.9 Finger Stick Blood Glucose 122 Intake and Output for Last 24 Hours 09/23/17 09/24/17 09/25/17 23:59 23:59 23:59 Intake Total 1160 / 1160 720 / 720 840 / 840 Output Total 1800 / 1800 1550 / 1550 1700 / 1700 Balance -640 / -640 -830 / -830 -860 / -860 POC Glucose 09/25/17 05:58 POC Glucose 107 Assessment/Plan Active and Suspected Problems Sepsis (Acute) Septic joint of left knee joint (Acute) 76 year old male with below past medical history hospitalized for sepsis secondary to 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 Bryant, complicated by NSTEMI, acute on chronic kidney failure, anemia, encephalopathy, admitted to TCU with debility, for rehabilitation, strengthening, intravenous antibiotics, prior to discharge home with spouse. * Debility - PT/OT. * Pain - Tylenol 1000MG Q8H PRN mild pain, Tramadol 50MG Q12H PRN. * Bowel - Miralax 17GM daily, Colace 100MG BID, Dulcolax 10MG [place] daily PRN. * DVT prophylaxis - Aspirin 81MG BID. 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 Alvarado following, Will consult Dr. Hernandez for port removal after IV antibiotics finished. * Atrial Fibrillation - Labetalol 100MG BID, Diltiazem 180MG BID, Aspirin 81MG BID. * Vitamin C deficiency - Vitamin C 1000MG daily. * Vitamin D deficiency - Vitamin D3 2000IU daily. * Nutrition - Glucerna shake 120ML TID, MVI daily. * Diabetes Mellitus II - Monitor sugars. * Iron deficiency anemia - Ferrex 150MG daily. * Coronary Artery Disease - Labetalol 100MG BID, Isosorbide Mononitrate 60G daily. * Insomnia - Melatonin 10MG QHS.
[2017-09-25 15:27] VITALS: BP 142/82; PULSE 75; RESP 18; TEMP 36.6; O2SAT 96
[2017-09-25] MEDS: MELATONIN 10 MG TABLET PO (21:17)
[2017-09-26] MEDS: Labetalol 100 MG Tablet PO ×2 (04:46→17:27)
[2017-09-26] MEDS: Docusate Sodium 100 MG Capsule PO ×2 (04:47→17:26)
[2017-09-26] MEDS: Isosorbide Mononitrate 60 MG Tablet PO (04:47)
[2017-09-26] MEDS: dilTIAZem CD 180 MG Capsule PO ×2 (04:47→17:27)
[2017-09-26 04:56] LABS: Absolute Lymphocyte Count 0.98 X10^3/ul (0.83-4.51); Absolute Neutrophil Count 3.8 X10^3/uL (2.0-7.7); Basophil# 0.02 X10^3/uL; Basophil% 0.3 % (0-1); Eosinophil# 0.42 X10^3/uL; Eosinophils% 7.1 % (0-5); Hematocrit 27.1 % (40-54); Hemoglobin 8.6 g/dl (13.0-16.5); Lymphocyte # 0.98 X10^3/ul (4.0); Lymphocyte % 16.6 % (19-41); Mean Corp Hgb Conc 31.7 g/gl (32-36); Mean Corpuscular Hgb 27.7 pg (27.0-32.0); Mean Corpuscular Volume 87.1 fL (80-94); Monocyte# 0.64 X10^3/uL; Monocyte% 10.9 % (0-10); Neutrophil # 3.81 X10^3/uL (2.7-7.7); Neutrophil % 64.8 % (47-70); Platelet Count 166 K/mm3 (150-450); RBC Distribution Width CV 14.9 % (11.6-14.6); RBC Distribution Width SD 45.4 fl (35.1-43.9); Red Blood Count 3.11 M/mm3 (4.6-6.2); White Blood Count 5.9 K/mm3 (4.4-11.0)
[2017-09-26 04:57] LABS: POSITIVE COUNT NO; POSITIVE DIFFERENTIAL NO; POSITIVE MORPHOLOGY NO
[2017-09-26 05:07] LABS: Anion Gap 11 (5-15); BUN 53 mg/dL (7-18); BUN/Creat Ratio 17.7 RATIO (10-20); Calcium,Total 8.5 mg/dL (8.5-10.1); Chloride 105 mmol/L (98-107); EST Glomerular Filtration Rate 22 mL/min (>60); Est Glom Filt Rate - Afr Amer 26 mL/min (>60); Estimated Creatinine Clearance 21.63 ml/min; Glucose 104 mg/dL (74-106); Potassium 4.1 mmol/L (3.5-5.1); Sodium Level 141 mmol/L (136-145)
[2017-09-26 05:19] LABS: Erythrocyte Sedimentation Rate 33 mm/hr (0-20)
[2017-09-26] MEDS: Glucerna Shake 120 ML LIQUID PO ×3 (05:53→17:26)
[2017-09-26 06:30] LABS: Bedside Glucose 123 mg/dL (70-110)
[2017-09-26] MEDS: Multivitamins,Therapeutic Tablet 1 TABLET PO (08:36)
[2017-09-26] MEDS: Iron Polysaccharide Complex 150 MG CAPSULE PO (08:36)
[2017-09-26] MEDS: Aspirin 81 MG TAB.CHEW PO ×2 (08:36→17:26)
[2017-09-26] MEDS: Ascorbic Acid 500 MG Tablet 1000 MG PO (08:37)
[2017-09-26 15:49] VITALS: BP 173/85; PULSE 82; RESP 20; TEMP 36.2; O2SAT 95
[2017-09-26] MEDS: 0.9% NaCl VAD Flush 10 ML IV (17:29)
[2017-09-26] MEDS: MELATONIN 10 MG TABLET PO (19:47)
[2017-09-27] MEDS: Docusate Sodium 100 MG Capsule PO ×2 (05:06→16:11)
[2017-09-27] MEDS: dilTIAZem CD 180 MG Capsule PO ×2 (05:06→16:11)
[2017-09-27] MEDS: Isosorbide Mononitrate 60 MG Tablet PO (05:06)
[2017-09-27] MEDS: 0.9% NaCl VAD Flush 10 ML IV (05:07)
[2017-09-27] MEDS: Labetalol 100 MG Tablet PO ×2 (05:07→16:11)
[2017-09-27 06:16] LABS: Bedside Glucose 105 mg/dL (70-110)
[2017-09-27] MEDS: Multivitamins,Therapeutic Tablet 1 TABLET PO (07:53)
[2017-09-27] MEDS: Aspirin 81 MG TAB.CHEW PO ×2 (07:53→16:11)
[2017-09-27] MEDS: Iron Polysaccharide Complex 150 MG CAPSULE PO (07:53)
[2017-09-27] MEDS: Ascorbic Acid 500 MG Tablet 1000 MG PO (07:54)
[2017-09-27] MEDS: Glucerna Shake 120 ML LIQUID PO ×2 (07:54→16:12)
[2017-09-27 16:00] VITALS: BP 155/89; PULSE 74; RESP 20; TEMP 36.9; O2SAT 96
[2017-09-27] MEDS: MELATONIN 10 MG TABLET PO (21:02)
[2017-09-27 21:06] VITALS: PULSE 76; O2SAT 97
[2017-09-28] MEDS: Labetalol 100 MG Tablet PO ×2 (05:01→17:45)
[2017-09-28] MEDS: Docusate Sodium 100 MG Capsule PO ×2 (05:01→17:45)
[2017-09-28] MEDS: Isosorbide Mononitrate 60 MG Tablet PO (05:01)
[2017-09-28] MEDS: dilTIAZem CD 180 MG Capsule PO ×2 (05:01→17:45)
[2017-09-28 06:11] LABS: Bedside Glucose 122 mg/dL (70-110)
[2017-09-28] MEDS: Glucerna Shake 120 ML LIQUID PO ×3 (07:53→17:45)
[2017-09-28] MEDS: Multivitamins,Therapeutic Tablet 1 TABLET PO (07:53)
[2017-09-28] MEDS: Iron Polysaccharide Complex 150 MG CAPSULE PO (07:53)
[2017-09-28] MEDS: Ascorbic Acid 500 MG Tablet 1000 MG PO (07:53)
[2017-09-28] MEDS: Aspirin 81 MG TAB.CHEW PO ×2 (07:53→17:45)
--- NOTE | 2017-09-28 09:25 | NURSING ---
Addendum entered by Maryjane Fair 09/28/17 09:58: Dr Chisholm returned call and Dr Hernandez will be in next week to write orders. Original Note: Consulted dr Chisholm, she clinical operations specialist for DR Hernandez. Aware that is wanting him to stay a night after removal to monitor for bleeding. states pt has tendency to bleed. Last dose of antibiotics is not until 10/10/17 at 1800 on thursday.
[2017-09-28 16:00] VITALS: BP 166/85; PULSE 80; RESP 18; TEMP 36.8; O2SAT 95
[2017-09-28] MEDS: 0.9% NaCl VAD Flush 10 ML IV (17:45)
[2017-09-28] MEDS: MELATONIN 10 MG TABLET PO (19:54)
--- NOTE | 2017-09-28 19:56 | NURSING ---
Ecchymosis noted to bases of left toes 2-4. Pt reports dropping book onto foot. Pt AOx3. Pt denies mistreatment from staff. Pt completed anticoagulant therapy this evening. Will continue to monitor and asses.
[2017-09-29] MEDS: dilTIAZem CD 180 MG Capsule PO ×2 (05:50→17:24)
[2017-09-29] MEDS: Docusate Sodium 100 MG Capsule PO ×2 (05:50→17:25)
[2017-09-29] MEDS: 0.9% NaCl VAD Flush 10 ML IV ×2 (05:50→17:24)
[2017-09-29] MEDS: Labetalol 100 MG Tablet PO ×2 (05:50→17:25)
[2017-09-29] MEDS: Isosorbide Mononitrate 60 MG Tablet PO (05:50)
[2017-09-29 06:46] LABS: Bedside Glucose 120 mg/dL (70-110)
[2017-09-29] MEDS: Glucerna Shake 120 ML LIQUID PO ×3 (07:47→17:23)
[2017-09-29] MEDS: Iron Polysaccharide Complex 150 MG CAPSULE PO (07:47)
[2017-09-29] MEDS: Ascorbic Acid 500 MG Tablet 1000 MG PO (07:47)
[2017-09-29] MEDS: Multivitamins,Therapeutic Tablet 1 TABLET PO (07:47)
[2017-09-29 15:39] VITALS: BP 147/76; PULSE 69; RESP 16; TEMP 36.7; O2SAT 98
[2017-09-29] MEDS: MELATONIN 10 MG TABLET PO (20:22)
[2017-09-30] MEDS: Isosorbide Mononitrate 60 MG Tablet PO (05:41)
[2017-09-30] MEDS: Docusate Sodium 100 MG Capsule PO ×2 (05:41→17:15)
[2017-09-30] MEDS: Labetalol 100 MG Tablet PO ×2 (05:41→17:15)
[2017-09-30] MEDS: dilTIAZem CD 180 MG Capsule PO ×2 (05:41→17:15)
[2017-09-30] MEDS: 0.9% NaCl VAD Flush 10 ML IV ×2 (05:41→17:29)
[2017-09-30] MEDS: 0.9% NaCl IVPB Med Flush (250 mL) 15 ML IV (05:43)
[2017-09-30 06:51] LABS: Bedside Glucose 110 mg/dL (70-110)
[2017-09-30] MEDS: Glucerna Shake 120 ML LIQUID PO ×3 (08:16→17:15)
[2017-09-30] MEDS: Iron Polysaccharide Complex 150 MG CAPSULE PO (08:16)
[2017-09-30] MEDS: Ascorbic Acid 500 MG Tablet 1000 MG PO (08:17)
[2017-09-30] MEDS: Multivitamins,Therapeutic Tablet 1 TABLET PO (08:17)
[2017-09-30 15:21] VITALS: BP 165/83; PULSE 74; RESP 18; TEMP 36.8; O2SAT 97
[2017-09-30] MEDS: MELATONIN 10 MG TABLET PO (21:06)
[2017-10-01] MEDS: Docusate Sodium 100 MG Capsule PO ×2 (05:47→17:34)
[2017-10-01] MEDS: dilTIAZem CD 180 MG Capsule PO ×2 (05:47→17:34)
[2017-10-01] MEDS: Labetalol 100 MG Tablet PO ×2 (05:48→17:34)
[2017-10-01] MEDS: Isosorbide Mononitrate 60 MG Tablet PO (05:48)
[2017-10-01] MEDS: 0.9% NaCl VAD Flush 10 ML IV ×3 (05:48→17:20)
[2017-10-01 07:01] LABS: Bedside Glucose 123 mg/dL (70-110)
[2017-10-01] MEDS: Ascorbic Acid 500 MG Tablet 1000 MG PO (08:11)
[2017-10-01] MEDS: Iron Polysaccharide Complex 150 MG CAPSULE PO (08:11)
[2017-10-01] MEDS: Glucerna Shake 120 ML LIQUID PO ×3 (08:11→17:36)
[2017-10-01] MEDS: Multivitamins,Therapeutic Tablet 1 TABLET PO (08:11)
--- NOTE | 2017-10-01 09:10 | MDS.RN ---
Information for the mds was obtained from review of the clinical record, interview of resident, staff, and direct observation of resident's care.
--- NOTE | 2017-10-01 12:48 | NURSING ---
Pt back from appt with Dr. Frye, NNO
--- NOTE | 2017-10-01 13:52 | CASEMGMT ---
Brief interview for mental status (BIMS) and resident mood interview (PHQ-9) completed on this day. BIMS score 15/15. PHQ-9 score
[2017-10-01 16:00] VITALS: BP 162/85; PULSE 78; RESP 18; TEMP 36.8; O2SAT 98
--- NOTE | 2017-10-01 16:06 | NURSING ---
assisted KAREN Damon with VAD deaccess and reaccess pt tolerated well. blood return noted.
[2017-10-01] MEDS: 0.9% NaCl IVPB Med Flush (250 mL) 15 ML IV (17:21)
[2017-10-01] MEDS: MELATONIN 10 MG TABLET PO (21:13)
[2017-10-02] MEDS: 0.9% NaCl VAD Flush 10 ML IV ×2 (06:04→17:17)
[2017-10-02] MEDS: dilTIAZem CD 180 MG Capsule PO ×2 (06:14→17:14)
[2017-10-02] MEDS: Labetalol 100 MG Tablet PO ×2 (06:14→17:15)
[2017-10-02] MEDS: Isosorbide Mononitrate 60 MG Tablet PO (06:14)
[2017-10-02] MEDS: Docusate Sodium 100 MG Capsule PO ×2 (06:14→17:15)
[2017-10-02 06:51] LABS: Bedside Glucose 132 mg/dL (70-110)
[2017-10-02] MEDS: Multivitamins,Therapeutic Tablet 1 TABLET PO (08:09)
[2017-10-02] MEDS: Glucerna Shake 120 ML LIQUID PO ×3 (08:09→17:13)
[2017-10-02] MEDS: Ascorbic Acid 500 MG Tablet 1000 MG PO (08:09)
[2017-10-02] MEDS: Iron Polysaccharide Complex 150 MG CAPSULE PO (08:09)
[2017-10-02 15:05] VITALS: BP 159/79; PULSE 75; RESP 16; TEMP 36.7; O2SAT 96
--- NOTE | 2017-10-02 17:21 | NURSING ---
up in chair, pleasant and cooperative. atb infusing
[2017-10-02] MEDS: MELATONIN 10 MG TABLET PO (20:50)
[2017-10-03 05:22] LABS: Absolute Lymphocyte Count 0.97 X10^3/ul (0.83-4.51); Absolute Neutrophil Count 4.7 X10^3/uL (2.0-7.7); Basophil# 0.03 X10^3/uL; Basophil% 0.4 % (0-1); Eosinophils% 5.9 % (0-5); Hematocrit 27.3 % (40-54); Hemoglobin 8.8 g/dl (13.0-16.5); Lymphocyte # 0.97 X10^3/ul (4.0); Lymphocyte % 14.2 % (19-41); Mean Corp Hgb Conc 32.2 g/gl (32-36); Mean Corpuscular Hgb 28.3 pg (27.0-32.0); Mean Corpuscular Volume 87.8 fL (80-94); Mean Platelet Vol. 8.7 fl (6.2-12.0); Monocyte# 0.65 X10^3/uL; Monocyte% 9.5 % (0-10); Neutrophil # 4.74 X10^3/uL (2.7-7.7); Neutrophil % 69.7 % (47-70); POSITIVE COUNT NO; POSITIVE DIFFERENTIAL NO; POSITIVE MORPHOLOGY NO; Platelet Count 143 K/mm3 (150-450); RBC Distribution Width CV 15.1 % (11.6-14.6); RBC Distribution Width SD 47.2 fl (35.1-43.9); Red Blood Count 3.11 M/mm3 (4.6-6.2); White Blood Count 6.8 K/mm3 (4.4-11.0)
[2017-10-03] MEDS: 0.9% NaCl IVPB Med Flush (250 mL) 15 ML IV (05:25)
[2017-10-03] MEDS: Isosorbide Mononitrate 60 MG Tablet PO (05:29)
[2017-10-03] MEDS: Docusate Sodium 100 MG Capsule PO ×2 (05:29→17:05)
[2017-10-03] MEDS: dilTIAZem CD 180 MG Capsule PO ×2 (05:29→17:05)
[2017-10-03] MEDS: Labetalol 100 MG Tablet PO ×2 (05:29→17:04)
[2017-10-03 05:36] LABS: BUN 55 mg/dL (7-18); BUN/Creat Ratio 17.9 RATIO (10-20); Calcium,Total 8.5 mg/dL (8.5-10.1); Chloride 104 mmol/L (98-107); Creatinine, Serum 3.08 mg/dL (0.70-1.30); EST Glomerular Filtration Rate 21 mL/min (>60); Est Glom Filt Rate - Afr Amer 25 mL/min (>60); Estimated Creatinine Clearance 21.07 ml/min; Glucose 113 mg/dL (74-106); Potassium 3.9 mmol/L (3.5-5.1); Sodium Level 140 mmol/L (136-145)
[2017-10-03 05:37] LABS: Anion Gap 11 (5-15)
[2017-10-03] MEDS: 0.9% NaCl VAD Flush 10 ML IV ×2 (05:41→17:20)
[2017-10-03 06:41] LABS: Bedside Glucose 118 mg/dL (70-110)
[2017-10-03] MEDS: Glucerna Shake 120 ML LIQUID PO ×3 (07:49→17:05)
[2017-10-03] MEDS: Ascorbic Acid 500 MG Tablet 1000 MG PO (07:49)
[2017-10-03] MEDS: Multivitamins,Therapeutic Tablet 1 TABLET PO (07:49)
[2017-10-03] MEDS: Iron Polysaccharide Complex 150 MG CAPSULE PO (07:50)
[2017-10-03 15:00] VITALS: BP 161/82; PULSE 79; RESP 18; TEMP 36.8; O2SAT 98
[2017-10-03] MEDS: MELATONIN 10 MG TABLET PO (20:08)
[2017-10-04] MEDS: 0.9% NaCl IVPB Med Flush (250 mL) 15 ML IV (06:31)
[2017-10-04] MEDS: 0.9% NaCl VAD Flush 10 ML IV (06:32)
[2017-10-04] MEDS: Isosorbide Mononitrate 60 MG Tablet PO (06:41)
[2017-10-04] MEDS: Docusate Sodium 100 MG Capsule PO ×2 (06:41→17:19)
[2017-10-04] MEDS: dilTIAZem CD 180 MG Capsule PO ×2 (06:41→17:19)
[2017-10-04] MEDS: Labetalol 100 MG Tablet PO ×2 (06:41→17:19)
[2017-10-04 07:05] LABS: Bedside Glucose 118 mg/dL (70-110)
[2017-10-04] MEDS: Ascorbic Acid 500 MG Tablet 1000 MG PO (07:27)
[2017-10-04] MEDS: Glucerna Shake 120 ML LIQUID PO ×3 (07:27→17:19)
[2017-10-04] MEDS: Iron Polysaccharide Complex 150 MG CAPSULE PO (07:27)
[2017-10-04] MEDS: Multivitamins,Therapeutic Tablet 1 TABLET PO (07:27)
[2017-10-04 15:22] VITALS: BP 146/82; PULSE 71; RESP 16; TEMP 36.8; O2SAT 98
[2017-10-04] MEDS: MELATONIN 10 MG TABLET PO (19:47)
[2017-10-05] MEDS: 0.9% NaCl IVPB Med Flush (250 mL) 15 ML IV ×2 (06:26→17:13)
[2017-10-05] MEDS: 0.9% NaCl VAD Flush 10 ML IV ×2 (06:26→17:13)
[2017-10-05] MEDS: Labetalol 100 MG Tablet PO ×2 (06:27→17:18)
[2017-10-05] MEDS: Docusate Sodium 100 MG Capsule PO ×2 (06:27→17:18)
[2017-10-05] MEDS: Isosorbide Mononitrate 60 MG Tablet PO (06:27)
[2017-10-05] MEDS: dilTIAZem CD 180 MG Capsule PO ×2 (06:27→17:17)
[2017-10-05 06:40] LABS: Bedside Glucose 112 mg/dL (70-110)
[2017-10-05] MEDS: Multivitamins,Therapeutic Tablet 1 TABLET PO (07:57)
[2017-10-05] MEDS: Glucerna Shake 120 ML LIQUID PO ×3 (07:57→17:13)
[2017-10-05] MEDS: Ascorbic Acid 500 MG Tablet 1000 MG PO (07:57)
[2017-10-05] MEDS: Iron Polysaccharide Complex 150 MG CAPSULE PO (07:57)
--- NOTE | 2017-10-05 08:36 | RAD_ITS ---
STUDY: X-RAY - LEFT FOOT CLINICAL: Male, 76 years old. PAIN AND REDNESS S/P FALL TECHNIQUE: 3 view(s) of the foot. COMPARISON: None. FINDINGS: Normal talus, calcaneus, and tarsal bones. Normal visualized subtalar, talonavicular, calcaneocuboid, tarsal articulations. 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 Normal metatarsi. Normal metatarsophalangeal joint of the great toe. Normal tibial and fibular sesamoid bones. Normal interphalangeal joint of the great toe. Normal phalanges of the great toe. Normal second through fifth metatarsophalangeal joints. Normal interphalangeal joints and phalanges of the lesser toes. The soft tissue structures are unremarkable. 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 Electronically Signed: Deborah Miller MD at 11:42 EDT Tel , Service support ,
--- NOTE | 2017-10-05 08:40 | NURSING ---
Ecchymosis and reddness to left foot, pt had dropped a book on his foot on 09/27/ Dr. Silva assessed, N.O. for xray of left foot and doxycycline BID for 7 days. Pt and aware of new orders.
[2017-10-05] MEDS: Doxycycline 100 MG CAPSULE PO ×2 (10:03→17:18)
--- NOTE | 2017-10-05 11:53 | NURSING ---
Dr. Hernandez here to see pt, port removal scheduled Thursday10/12/17
[2017-10-05 15:31] VITALS: BP 151/83; PULSE 78; RESP 18; TEMP 36.6; O2SAT 98
[2017-10-05] MEDS: MELATONIN 10 MG TABLET PO (20:47)
[2017-10-06] MEDS: Doxycycline 100 MG CAPSULE PO ×2 (06:31→17:35)
[2017-10-06] MEDS: Docusate Sodium 100 MG Capsule PO ×2 (06:31→17:35)
[2017-10-06] MEDS: dilTIAZem CD 180 MG Capsule PO ×2 (06:31→17:35)
[2017-10-06] MEDS: Isosorbide Mononitrate 60 MG Tablet PO (06:31)
[2017-10-06] MEDS: Labetalol 100 MG Tablet PO ×2 (06:31→17:35)
[2017-10-06] MEDS: 0.9% NaCl VAD Flush 10 ML IV ×2 (06:31→17:36)
[2017-10-06 06:35] LABS: Bedside Glucose 106 mg/dL (70-110)
[2017-10-06] MEDS: Glucerna Shake 120 ML LIQUID PO ×3 (08:33→17:35)
[2017-10-06] MEDS: Ascorbic Acid 500 MG Tablet 1000 MG PO (08:34)
[2017-10-06] MEDS: Multivitamins,Therapeutic Tablet 1 TABLET PO (08:34)
[2017-10-06] MEDS: Iron Polysaccharide Complex 150 MG CAPSULE PO (08:34)
--- NOTE | 2017-10-06 11:37 | CASEMGMT ---
Social Work Spoke with resident. Resident requesting to discharge on 10/13/17 versus 10/11/17 as resident is wanting to be monitored over night after port has been taken out. Spoke with staff, 10/13/17 is an agreeable date. Resident plans to discharge home with spouse. Support given. Proposed discharge date: 10/13/17 PLAN: Discharge home with spouse. 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
[2017-10-06 15:50] VITALS: BP 159/73; PULSE 80; RESP 18; TEMP 36.6; O2SAT 94
--- NOTE | 2017-10-06 21:04 | DCINST_ITS ---
- Discharge Diagnoses Current Active Problems: Current Active and Chronic Problems (Last Reviewed 10/06/17 @ 13:57 by Leia Lopez) Cancer of right kidney (Chronic) Left renal mass (Chronic) Septic joint of left knee joint (Acute) You will use the following diet at home:: No restrictions, Regular Your food should be the consistency of: Regular Your liquids should be the consistency of: Regular/Thin Discharge Activity: Return to Normal Activity, May Shower, Use Walker May resume sexual activity in: No Restrictions Weight Bearing Status: Weight bearing as tolerated Call your doctor if you observe: Fever of 101 or Higher, Inability to urinate, Inability to have a bowel movement, Shortness of breath, Chest pain, Uncontrolled pain Allergies/Adverse Reactions: Allergies losartan potassium [From Cozaar] Allergy (Severe, Verified 10/06/17 13:58) Other valsartan [From Diovan HCT] Allergy (Severe, Verified 10/06/17 13:58) Other amlodipine besylate [From Norvasc] Allergy (Verified 10/06/17 13:58) Other doxazosin mesylate [From Cardura] Allergy (Verified 10/06/17 13:58) Other furosemide [From Lasix] Allergy (Verified 10/06/17 13:58) Other states causes urinary system to shut down and he can't urinate hydrochlorothiazide Allergy (Verified 10/06/17 13:58) Other metoprolol succinate [From Toprol XL] Allergy (Verified 10/06/17 13:58) Other simvastatin Allergy (Verified 10/06/17 13:58) Other atenolol Adverse Reaction (Severe, Verified 10/06/17 13:58) Potential to cause CVA? losartan [From Hyzaar] Adverse Reaction (Severe, Verified 10/06/17 13:58) Ineffective oxycodone [From OxyIR] Adverse Reaction (Severe, Verified 10/06/17 13:58) tremors SEVERE CONFUSION acetaminophen [From Vicodin] Adverse Reaction (Verified 10/06/17 13:58) Other hydrocodone [From Vicodin] Adverse Reaction (Verified 10/06/17 13:58) Other vicodin Adverse Reaction (Severe, Uncoded 10/06/17 13:58) Other SEVERE CONFUSION Hydrogenated Vegetable Oil Adverse Reaction (Uncoded 10/06/17 13:58) Upset Stomach Medications to take at Discharge Ascorbic Acid [Vitamin C] 1,000 mg PO DAILY@0800 02/06/16 Multivitamin [Daily Multiple Vitamin] 1 ea PO DAILY 02/06/16 Cholecalciferol (Vitamin D3) [Vitamin D3] 2,000 unit PO DAILY 07/28/17 Iron Polysaccharide Complex [Ferrex 150] 325 mg PO DAILYCM 07/28/17 Labetalol [Trandate (Beta Liz)] 100 mg PO BID 07/28/17 Diltiazem HCl [Diltiazem ER] 180 mg PO BID 07/29/17 nateglinide 60 mg tablet See Label Instructions PO TID 09/29/17 melatonin 10 mg capsule 10 mg PO HS 10/01/17 Acetaminophen [Tylenol] 1,000 mg PO Q8H PRN PRN tablet 10/06/17 Iron Polysaccharide Complex [Ferrex 150] 150 mg PO DAILYCM #30 cap 10/06/17 Isosorbide Mononitrate [Imdur] 60 mg PO DAILY #30 tab 10/06/17 Melatonin 10 mg PO QHS #30 tab 10/06/17 Menthol/Lanolin/Calamine/Znox [Calmoseptine Ointment] 1 applic TOPICAL 0600, 2200 PRN tube 10/06/17 The following prescriptions were given: Iron Polysaccharide Complex [Ferrex 150] 150 mg PO DAILYCM #30 cap Isosorbide Mononitrate [Imdur] 60 mg PO DAILY #30 tab Melatonin 10 mg PO QHS #30 tab Primary Care Physician: Dejuan Catherine DO [Primary Care Provider] - Please follow up with your Primary Care Physician in: 1 week. Please Follow Up With: Dr Frye When: 1 week Please Follow Up With: Dr. Pino When: 1-2 weeks Please Follow Up With: Proposed Discharge Date: 10/13/17
--- NOTE | 2017-10-06 21:08 | DS.PCM_ITS ---
Discharge Date and Diagnosis - Problem List Patient Problems: Active and Suspected Problems (Last Reviewed 10/06/17 @ 13:57 by Leia Lopez) Septic joint of left knee joint (Acute) Date of Admission: 09/04/17 Date of Discharge: 10/13/17 - Primary Discharge Diagnosis Active and Suspected Problems (Last Reviewed 10/06/17 @ 13:57 by Leia Lopez) Septic joint of left knee joint (Acute) - Secondary Discharge Diagnosis Chronic Problems (Last Reviewed 10/06/17 @ 13:57 by Leia Lopez) Cancer of right kidney (Chronic) Left renal mass (Chronic) Presence of stent in coronary artery (Chronic) PTCA of RCA intracoronary stent January 2009 (bare metal) Premature atrial contractions (Chronic) Presence of aortocoronary bypass graft (Chronic) CABG X 4, JOE to LAD, SVG-D1 sequential - PDA1 & PDA 2 Paroxysmal atrial fibrillation (Chronic) H/O aortic valve replacement (Chronic) 07/25/15 @ [facility] Premature ventricular contractions (Chronic) Hyperlipidemia (Chronic) Hypertension (Chronic) Osteoarthritis of left knee (Chronic) DM2 (diabetes mellitus, type 2) (Chronic) Chronic kidney disease (Chronic) Solitary kidney (Chronic) Hospital Course and Treatment Imaging Results: 09/18/17 11:56 Diet: Regular Diet Food consistency:: Regular Liquid Consistency:: Regular/Thin Is pt able to select menu?: Yes Diet Comments: sips of water with medications Clinical Impression(s) from Imaging Studies Foot X-Ray 10/05/17 08:36 IMPRESSION: Degenerative arthrosis in the first tarsometatarsal articulation. Electronically Signed: Deborah Miller MD at 11:42 EDT Tel , Service support , Labs (Last 48 Hours) 10/05/17 10/06/17 06:21 06:30 POC Glucose 112 H 106 Operations: None, - - 09/03/[address] Hernandez, 08/29/[address] Bryant w/ I+D, complete synovectomy left knee, L knee polyethylene exchange 1 component revision. 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 Bryant, complicated by NSTEMI, acute on chronic kidney failure, anemia, encephalopathy, admitted to TCU with debility, for rehabilitation, strengthening, intravenous antibiotics, prior to discharge home with spouse. 10/12/[address] Hernandez. Resident dropped book on left dorsal foot, X-ray negative for fracture, Doxycycline 100MG BID x 7 days for cellulitis left foot. Left renal mass needs follow up. History of right renal cell carcinoma status post right nephrectomy. [] Discharge home with spouse. Discharge Diet: No Restrictions Discharge Activity: Return to Normal Activity, May Shower, Use Walker May resume sexual activity in: No Restrictions Weight Bearing Status: Weight bearing as tolerated Call your doctor if you observe: Fever of 101 or Higher, Inability to urinate, Inability to have a bowel movement, Shortness of breath, Chest pain, Uncontrolled pain Home Medications: Medications to take at Discharge Ascorbic Acid [Vitamin C] 1,000 mg PO DAILY@0800 02/06/16 Multivitamin [Daily Multiple Vitamin] 1 ea PO DAILY 02/06/16 Cholecalciferol (Vitamin D3) [Vitamin D3] 2,000 unit PO DAILY 07/28/17 Iron Polysaccharide Complex [Ferrex 150] 325 mg PO DAILYCM 07/28/17 Labetalol [Trandate (Beta Liz)] 100 mg PO BID 07/28/17 Diltiazem HCl [Diltiazem ER] 180 mg PO BID 07/29/17 nateglinide 60 mg tablet See Label Instructions PO TID 09/29/17 melatonin 10 mg capsule 10 mg PO HS 10/01/17 Acetaminophen [Tylenol] 1,000 mg PO Q8H PRN PRN tablet 10/06/17 Iron Polysaccharide Complex [Ferrex 150] 150 mg PO DAILYCM #30 cap 10/06/17 Isosorbide Mononitrate [Imdur] 60 mg PO DAILY #30 tab 10/06/17 Melatonin 10 mg PO QHS #30 tab 10/06/17 Menthol/Lanolin/Calamine/Znox [Calmoseptine Ointment] 1 applic TOPICAL 0600, 2200 PRN tube 10/06/17 Following Prescrptions Were Given to Patient: Iron Polysaccharide Complex [Ferrex 150] 150 mg PO DAILYCM #30 cap Isosorbide Mononitrate [Imdur] 60 mg PO DAILY #30 tab Melatonin 10 mg PO QHS #30 tab Primary Care Physician: Dejuan Catherine DO [Primary Care Provider] - Please follow up with your Primary Care Physician in: 1 week. Please Follow Up With: Dr Frye When: 1 week Please Follow Up With: Dr. Pino When: 1-2 weeks Please Follow Up With: Disposition: Home Minutes spent on discharge:: 35 Patient Condition:: Stable Medical Necessity - Tobacco Use Smoking Status: Former smoker Tobacco Use: Non-smoker Meaningful Use Info Meaningful Use Diagnoses (Choose all that apply): None applicable
[2017-10-06] MEDS: MELATONIN 10 MG TABLET PO (21:52)
[2017-10-07 06:22] VITALS: BP 159/76; PULSE 67; RESP 16; TEMP 36.6; O2SAT 96
[2017-10-07] MEDS: Docusate Sodium 100 MG Capsule PO ×2 (06:25→17:22)
[2017-10-07] MEDS: Polyethylene Glycol 3350 17 GM PACKET PO (06:25)
[2017-10-07] MEDS: dilTIAZem CD 180 MG Capsule PO ×2 (06:25→17:22)
[2017-10-07] MEDS: Labetalol 100 MG Tablet PO ×2 (06:25→17:22)
[2017-10-07] MEDS: Doxycycline 100 MG CAPSULE PO ×2 (06:25→17:22)
[2017-10-07] MEDS: Glucerna Shake 120 ML LIQUID PO ×2 (06:25→11:56)
[2017-10-07] MEDS: Isosorbide Mononitrate 60 MG Tablet PO (06:25)
[2017-10-07 06:46] LABS: Bedside Glucose 125 mg/dL (70-110)
[2017-10-07] MEDS: Iron Polysaccharide Complex 150 MG CAPSULE PO (07:55)
[2017-10-07] MEDS: Ascorbic Acid 500 MG Tablet 1000 MG PO (07:55)
[2017-10-07] MEDS: Multivitamins,Therapeutic Tablet 1 TABLET PO (07:55)
--- NOTE | 2017-10-07 08:20 | PCM.PN.BLA ---
Progress Note I discussed port removal with the patient in detail. I discussed the risks of bleeding and infection. His antibiotics are due to be done on Thursday and I plan to remove his port at the bedside on Thursday. Andreas Hernandez MD Pager: [facility] [address] [place] [address] Office:
--- NOTE | 2017-10-07 08:21 | PN_ITS ---
Progress Note I discussed port removal with the patient in detail. I discussed the risks of bleeding and infection. His antibiotics are due to be done on Thursday and I plan to remove his port at the bedside on Thursday. Andreas Hernandez MD Pager: [facility] [address], [address] [place] [address] Office:
--- NOTE | 2017-10-07 14:24 | PN.ID_ITS ---
Patient Problems: Active and Suspected Problems (Last Reviewed 10/06/17 @ 13:57 by Leia Lopez) Septic joint of left knee joint (Acute) Subjective: Feeling well, no fever, no n/v/d. Port removal planned. - Physical Exam General: Alert, Cooperative Lungs: Clear to auscultation, Normal air movement Cardiovascular: Regular rate, Regular Rhythm Abdomen: Soft, Non Tender, Non-Distended Skin: No rashes Vital Signs Temp Pulse Resp BP Pulse Ox 98 F 67 16 159/76 H 96 10/07/17 06:22 10/07/17 06:22 10/07/17 06:22 10/07/17 06:22 10/07/17 06:22 Oxygen Flow Rate (L/min) 2 Oxygen Delivery Method Room Air Weight: 95.765 kg Body Mass Index (BMI) 30.9 Finger Stick Blood Glucose 122 Intake and Output for Last 24 Hours 10/05/17 10/06/17 10/07/17 23:59 23:59 23:59 Intake Total 720 / 720 960 / 960 600 / 600 Balance 720 / 720 960 / 960 600 / 600 POC Glucose 10/07/17 06:35 POC Glucose 125 H Medical Necessity - Tobacco Use Smoking Status: Former smoker Tobacco Use: Non-smoker Route of nutrition/ use of supplements: [] Nutritional Intake: [] IV Site: [] Irving Catheter: [] - Assessment/Plan Antibiotics: [] Assessment/Plan: [] Active and Suspected Problems Sepsis (Acute) Septic joint of left knee joint (Acute) 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 Has h/o CKD and bioprosthetic AVR - repeat bcx neg since 08/29. Taken to OR 08/[address] Bryant for debridement with poly exchange. Had splinter hemorrhage on L 2nd toe , no other signs of endocarditis. Port placed. TIM with no veg seen. Continue ampicillin iv, stop date 10/10/17 for 6 week course. After that, will need long course of po amoxicillin 875mg bid. Weekly bmp, cbc, and esr while on iv abx. Port removal planned. ID follow-up in 3-4 weeks after discharge. VINOD on CKD - Cr now stable will follow
[2017-10-07 16:00] VITALS: BP 140/78; PULSE 71; RESP 20; TEMP 36.4; O2SAT 95
--- NOTE | 2017-10-07 17:05 | NURSING ---
PAGED DR BARFIELD, WIRING TECHNICIAN RETURNED CALL AND MESSAGE LEFT WITH HIM REGARDING, NEEDING PORT REMOVAL ON THURSDAY EARLY AM D/T PT HAVING APPT WITH ONCOLOGY Thursday.
[2017-10-07] MEDS: 0.9% NaCl VAD Flush 10 ML IV (17:21)
[2017-10-07] MEDS: MELATONIN 10 MG TABLET PO (19:54)
[2017-10-08] MEDS: 0.9% NaCl VAD Flush 10 ML IV ×3 (05:40→18:01)
[2017-10-08] MEDS: dilTIAZem CD 180 MG Capsule PO ×2 (05:40→18:01)
[2017-10-08] MEDS: 0.9% NaCl IVPB Med Flush (250 mL) 15 ML IV (05:40)
[2017-10-08] MEDS: Labetalol 100 MG Tablet PO ×2 (05:40→18:02)
[2017-10-08] MEDS: Docusate Sodium 100 MG Capsule PO ×2 (05:40→18:01)
[2017-10-08] MEDS: Isosorbide Mononitrate 60 MG Tablet PO (05:40)
[2017-10-08] MEDS: Doxycycline 100 MG CAPSULE PO ×2 (05:40→18:02)
[2017-10-08 06:46] LABS: Bedside Glucose 104 mg/dL (70-110)
[2017-10-08] MEDS: Multivitamins,Therapeutic Tablet 1 TABLET PO (07:46)
[2017-10-08] MEDS: Glucerna Shake 120 ML LIQUID PO ×3 (07:46→18:01)
[2017-10-08] MEDS: Iron Polysaccharide Complex 150 MG CAPSULE PO (07:46)
[2017-10-08] MEDS: Ascorbic Acid 500 MG Tablet 1000 MG PO (07:46)
--- NOTE | 2017-10-08 08:11 | MDS.RN ---
Information for the mds was obtained from review of the clinical record, interview of resident, staff, and direct observation of resident's care.
[2017-10-08 13:58] VITALS: BP 148/84; PULSE 71; RESP 16; TEMP 36.5; O2SAT 98
--- NOTE | 2017-10-08 16:30 | CASEMGMT ---
Brief interview for mental status (BIMS) and resident mood interview (PHQ-9) completed on this day. BIMS score 15/15. PHQ-9 score
[2017-10-08] MEDS: MELATONIN 10 MG TABLET PO (21:31)
[2017-10-09] MEDS: 0.9% NaCl VAD Flush 10 ML IV ×2 (06:27→17:39)
[2017-10-09] MEDS: dilTIAZem CD 180 MG Capsule PO ×2 (06:28→16:32)
[2017-10-09] MEDS: Isosorbide Mononitrate 60 MG Tablet PO (06:28)
[2017-10-09] MEDS: Docusate Sodium 100 MG Capsule PO ×2 (06:28→16:33)
[2017-10-09] MEDS: Doxycycline 100 MG CAPSULE PO ×2 (06:28→16:33)
[2017-10-09] MEDS: Labetalol 100 MG Tablet PO ×2 (06:29→16:33)
[2017-10-09] MEDS: Glucerna Shake 120 ML LIQUID PO ×3 (06:30→16:32)
[2017-10-09 06:45] LABS: Bedside Glucose 109 mg/dL (70-110)
[2017-10-09] MEDS: Multivitamins,Therapeutic Tablet 1 TABLET PO (08:28)
[2017-10-09] MEDS: Iron Polysaccharide Complex 150 MG CAPSULE PO (08:28)
[2017-10-09] MEDS: Ascorbic Acid 500 MG Tablet 1000 MG PO (08:28)
[2017-10-09 14:04] VITALS: BP 149/76; PULSE 69; RESP 18; TEMP 36.5; O2SAT 96
[2017-10-09] MEDS: MELATONIN 10 MG TABLET PO (21:09)
[2017-10-10] MEDS: Isosorbide Mononitrate 60 MG Tablet PO (06:24)
[2017-10-10] MEDS: Docusate Sodium 100 MG Capsule PO ×2 (06:24→17:48)
[2017-10-10] MEDS: Labetalol 100 MG Tablet PO ×2 (06:24→17:49)
[2017-10-10] MEDS: dilTIAZem CD 180 MG Capsule PO ×2 (06:24→17:48)
[2017-10-10] MEDS: Doxycycline 100 MG CAPSULE PO ×2 (06:24→17:49)
[2017-10-10] MEDS: 0.9% NaCl VAD Flush 10 ML IV ×2 (06:25→17:47)
[2017-10-10 07:01] LABS: Bedside Glucose 113 mg/dL (70-110)
[2017-10-10 07:12] LABS: Absolute Lymphocyte Count 1.08 X10^3/ul (0.83-4.51); Absolute Neutrophil Count 4.3 X10^3/uL (2.0-7.7); Basophil# 0.02 X10^3/uL; Basophil% 0.3 % (0-1); Eosinophil# 0.37 X10^3/uL; Eosinophils% 5.9 % (0-5); Hematocrit 27.9 % (40-54); Hemoglobin 8.8 g/dl (13.0-16.5); Lymphocyte # 1.08 X10^3/ul (4.0); Lymphocyte % 17.4 % (19-41); Mean Corp Hgb Conc 31.5 g/gl (32-36); Mean Corpuscular Hgb 27.3 pg (27.0-32.0); Mean Corpuscular Volume 86.6 fL (80-94); Mean Platelet Vol. 9.1 fl (6.2-12.0); Monocyte# 0.49 X10^3/uL; Monocyte% 7.9 % (0-10); Neutrophil # 4.25 X10^3/uL (2.7-7.7); Neutrophil % 68.3 % (47-70); POSITIVE COUNT NO; POSITIVE DIFFERENTIAL NO; POSITIVE MORPHOLOGY NO; Platelet Count 170 K/mm3 (150-450); RBC Distribution Width CV 15.9 % (11.6-14.6); RBC Distribution Width SD 49.9 fl (35.1-43.9); Red Blood Count 3.22 M/mm3 (4.6-6.2); White Blood Count 6.2 K/mm3 (4.4-11.0)
[2017-10-10 07:23] LABS: Anion Gap 11 (5-15); BUN 58 mg/dL (7-18); Calcium,Total 8.7 mg/dL (8.5-10.1); Chloride 103 mmol/L (98-107); Creatinine, Serum 3.06 mg/dL (0.70-1.30); EST Glomerular Filtration Rate 21 mL/min (>60); Est Glom Filt Rate - Afr Amer 26 mL/min (>60); Estimated Creatinine Clearance 21.21 ml/min; Glucose 102 mg/dL (74-106); Potassium 3.9 mmol/L (3.5-5.1); Sodium Level 140 mmol/L (136-145)
[2017-10-10 07:31] VITALS: O2SAT 93
[2017-10-10] MEDS: Glucerna Shake 120 ML LIQUID PO ×3 (08:22→17:46)
[2017-10-10] MEDS: Iron Polysaccharide Complex 150 MG CAPSULE PO (08:22)
[2017-10-10] MEDS: Multivitamins,Therapeutic Tablet 1 TABLET PO (08:22)
[2017-10-10] MEDS: Ascorbic Acid 500 MG Tablet 1000 MG PO (08:22)
--- NOTE | 2017-10-10 08:57 | NURSING ---
Dr Silva aware new order entered for Amoxil per Dr Alvarado. Prescription sent to pt pharmacy.
--- NOTE | 2017-10-10 12:54 | NURSING ---
DR. FIERRO REVIEWED LABS.
[2017-10-10 16:00] VITALS: BP 172/96; PULSE 79; RESP 20; TEMP 36.4; O2SAT 98
[2017-10-10] MEDS: MELATONIN 10 MG TABLET PO (21:01)
[2017-10-10] MEDS: AMOXICILLIN 500 MG CAPSULE PO (21:01)
[2017-10-11] MEDS: dilTIAZem CD 180 MG Capsule PO ×2 (05:58→17:45)
[2017-10-11] MEDS: Docusate Sodium 100 MG Capsule PO ×2 (05:58→17:45)
[2017-10-11] MEDS: Labetalol 100 MG Tablet PO ×2 (05:59→17:45)
[2017-10-11] MEDS: AMOXICILLIN 500 MG CAPSULE PO ×3 (05:59→20:57)
[2017-10-11] MEDS: Doxycycline 100 MG CAPSULE PO ×2 (06:00→17:45)
[2017-10-11] MEDS: Isosorbide Mononitrate 60 MG Tablet PO (06:00)
[2017-10-11 06:51] LABS: Bedside Glucose 111 mg/dL (70-110)
[2017-10-11] MEDS: Ascorbic Acid 500 MG Tablet 1000 MG PO (08:21)
[2017-10-11] MEDS: Glucerna Shake 120 ML LIQUID PO (08:21)
[2017-10-11] MEDS: Iron Polysaccharide Complex 150 MG CAPSULE PO (08:21)
[2017-10-11] MEDS: Multivitamins,Therapeutic Tablet 1 TABLET PO (08:22)
[2017-10-11 15:48] VITALS: BP 134/86; PULSE 73; RESP 18; TEMP 36.7; O2SAT 98
[2017-10-11] MEDS: MELATONIN 10 MG TABLET PO (20:57)
[2017-10-12] MEDS: Isosorbide Mononitrate 60 MG Tablet PO (05:40)
[2017-10-12] MEDS: AMOXICILLIN 500 MG CAPSULE PO ×3 (05:40→20:44)
[2017-10-12] MEDS: dilTIAZem CD 180 MG Capsule PO ×2 (05:41→17:22)
[2017-10-12] MEDS: Doxycycline 100 MG CAPSULE PO ×2 (05:41→17:16)
[2017-10-12] MEDS: Labetalol 100 MG Tablet PO ×2 (05:41→17:22)
[2017-10-12 05:43] VITALS: BP 171/88; PULSE 81
[2017-10-12 06:40] LABS: Bedside Glucose 118 mg/dL (70-110)
--- NOTE | 2017-10-12 07:44 | PCM.OPRPT ---
Problem List (1) Encounter for adjustment or management of vascular access device Status: Acute Report of Operation Date of Procedure: 10/12/17 Pre-Operative Diagnosis: Need for vascular access port removal Post-Operative Diagnosis: Same Surgery/Procedure Performed:: Right chest port removal Specimen's removed: Right chest port Description of Procedure: The patient was consented with the risks of bleeding and infection. Next the right upper chest was prepped and draped in usual sterile fashion. The prior incision site was injected with lidocaine with epinephrine. Next a scalpel was used to make a skin incision over the prior incision. This was deepened to the catheter and the catheter was grasped and removed proximally. Next the port was removed from its pocket. The catheter and port removed in its entirety. The pocket was then irrigated and the skin was closed with interrupted 4-0 Vicryl sutures and Steri-Strips and a bandage. Pressure was then held. Hemostasis was good and the patient tolerated the procedure well.
[2017-10-12] MEDS: Glucerna Shake 120 ML LIQUID PO ×3 (08:03→17:18)
[2017-10-12] MEDS: Iron Polysaccharide Complex 150 MG CAPSULE PO (08:05)
[2017-10-12] MEDS: Ascorbic Acid 500 MG Tablet 1000 MG PO (08:05)
[2017-10-12] MEDS: Multivitamins,Therapeutic Tablet 1 TABLET PO (08:05)
[2017-10-12] MEDS: Docusate Sodium 100 MG Capsule PO ×2 (08:07→17:16)
--- NOTE | 2017-10-12 09:15 | NURSING ---
Dr Hernandez up around 0715 for port removal at bedside. Checked drsg, D/I, no shadow trupti noted. Pt up washing up at sink. at bedside.
--- NOTE | 2017-10-12 13:26 | NURSING ---
pt off unit to DR Fong appt with at side.
[2017-10-12 16:00] VITALS: BP 161/79; PULSE 72; RESP 18; TEMP 36.7; O2SAT 97
--- NOTE | 2017-10-12 16:05 | NURSING ---
Addendum entered by Maryjane Fair 10/12/17 16:21: scheduled for 12:30pm on 10/13/17 Original Note: pt returned from Dr Ajit alfred, new order for right thoracentesis-fluid for cytology.
[2017-10-12] MEDS: MELATONIN 10 MG TABLET PO (20:44)
[2017-10-13] MEDS: AMOXICILLIN 500 MG CAPSULE PO ×2 (06:00→12:54)
[2017-10-13] MEDS: Labetalol 100 MG Tablet PO (06:00)
[2017-10-13] MEDS: Docusate Sodium 100 MG Capsule PO (06:00)
[2017-10-13] MEDS: dilTIAZem CD 180 MG Capsule PO (06:00)
[2017-10-13] MEDS: Isosorbide Mononitrate 60 MG Tablet PO (06:00)
[2017-10-13 06:03] VITALS: BP 160/87; PULSE 79
[2017-10-13 06:15] LABS: International Normalized Ratio 1.1; Prothrombin Time (Protime)PT. 14.4 SECONDS (11.7-14.9)
[2017-10-13 06:16] LABS: Partial Thromboplast Time 33.1 Seconds (24.1-36.2)
[2017-10-13 06:56] LABS: Bedside Glucose 106 mg/dL (70-110)
[2017-10-13] MEDS: Ascorbic Acid 500 MG Tablet 1000 MG PO (08:05)
[2017-10-13] MEDS: Glucerna Shake 120 ML LIQUID PO (08:05)
[2017-10-13] MEDS: Multivitamins,Therapeutic Tablet 1 TABLET PO (08:05)
[2017-10-13] MEDS: Iron Polysaccharide Complex 150 MG CAPSULE PO (08:05)
[2017-10-13 08:14] VITALS: O2SAT 98
--- NOTE | 2017-10-13 12:10 | NURSING ---
Addendum entered by Maryjane Fair 10/13/17 12:40: pt back, Almaz JONES from ultrasound reported that fluid on lungs had redistributed, no need for thoracentesis. Message left with DR Fong office per request, she wanting to know if there is anything he would want to do with his kidney today. Awaiting return call Original Note: pt off unit to ultrasound for thoracentesis, at side.
--- NOTE | 2017-10-15 15:22 | MDS.RN ---
Information for the mds was obtained from review of the clinical record, interview of resident, staff, and direct observation of resident's care.
== END 2017-10-13 15:15 | disposition home or self-care (01) | DRG 949 ==
PROVIDERS: Admitting Provider Family Medicine Geriatric Medicine; Family Provider Family Medicine; PCP Family Medicine; Visit Provider Family Medicine Geriatric Medicine
DX: T84.54XD Infection and inflammatory reaction due to internal left knee prosthesis, subsequent encounter (principal); I21.4 Non-ST elevation (NSTEMI) myocardial infarction; G93.40 Encephalopathy, unspecified; N18.4 Chronic kidney disease, stage 4 (severe); N17.9 Acute kidney failure, unspecified; M00.862 Arthritis due to other bacteria, left knee; E11.22 Type 2 diabetes mellitus with diabetic chronic kidney disease; B95.2 Enterococcus as the cause of diseases classified elsewhere; D50.9 Iron deficiency anemia, unspecified; I25.10 Atherosclerotic heart disease of native coronary artery without angina pectoris; Y79.2 Prosthetic and other implants, materials and accessory orthopedic devices associated with adverse incidents; E78.5 Hyperlipidemia, unspecified; I48.0 Paroxysmal atrial fibrillation; N28.89 Other specified disorders of kidney and ureter; I12.9 Hypertensive chronic kidney disease with stage 1 through stage 4 chronic kidney disease, or unspecified chronic kidney disease; Z85.528 Personal history of other malignant neoplasm of kidney; Z79.899 Other long term (current) drug therapy; Z79.4 Long term (current) use of insulin; Z87.891 Personal history of nicotine dependence; Z90.5 Acquired absence of kidney; Z95.3 Presence of xenogenic heart valve; Z95.1 Presence of aortocoronary bypass graft; D64.9 Anemia, unspecified; Z79.01 Long term (current) use of anticoagulants; G47.00 Insomnia, unspecified; E55.9 Vitamin D deficiency, unspecified
CPT/HCPCS: 36415; 73630; 74181; 80048; 82274; 82962; 83735; 84100; 85014; 85018; 85025; 85610; 85652; 85730; 86850; 86900; 86920; 86922; 97110; 97116; 97150; 97162; 97166; 97530; 97535; 97802; J7040; J7050; P9016; A4216

== ENCOUNTER 2017-09-05 10:52 | Outpatient (CLI) | payer MEDICARE, OTHER, SELFPAY ==
[2017-09-05] VITALS (7 sets, daily range): BP systolic 145–170; BP diastolic 70–82; PULSE 72–85; RESP 18; TEMP 36.3–36.7; O2SAT 95–100; BMI 30.9
--- NOTE | 2017-09-05 11:03 | MRI_ITS ---
STUDY: MRI ABDOMEN WITHOUT CONTRAST REASON FOR EXAM: Male, 76 years old. Left renal mass. TECHNIQUE: Standardized fat and water weighted pulse sequences were obtained in all 3 orthogonal planes. Several images are limited by patient motion. COMPARISON: CT of the abdomen and pelvis dated September 03, 2017 and ultrasound dated September 02, 2017. FINDINGS: The visualized lung bases are unremarkable. The visualized portions of the heart are within normal limits. There is limited visualization of the liver related to patient motion and incomplete imaging. Normal gallbladder and extrahepatic biliary system. Normal spleen. There is limited visualization of the pancreas due to patient motion. Normal bilateral adrenal glands. The right kidney is not present. There is apparent nodular area in lower pole of the left kidney measuring approximately 1.8 cm in size. This is best seen on the coronal and axial LAVA flex images. This is best seen on coronal image #32 and axial image #70. This is difficult to see on any other sequence. There is no evidence for hydronephrosis. Normal visualized stomach. There is no evidence for dilated bowel. There is limited visualization of the small bowel and colon in part related to patient motion. There is non-visualization of the appendix. Normal abdominal aorta. Normal inferior vena cava. Normal retroperitoneum. Normal abdominal wall. Normal osseous structures. MRI/Abdomen without Contrast IMPRESSION: 1. Small nodular lesion within the lower pole of the left kidney. 2. Technically limited MRI due to patient motion. Electronically Signed: Fabby Narayanan MD at 8:35 EST , Service support ,
[2017-09-05] MEDS: 0.9% NaCl VAD Flush 10 ML IV ×2 (12:54→18:23)
[2017-09-05 17:05] LABS: Bedside Glucose 113 mg/dL (70-110)
--- NOTE | 2017-09-05 18:32 | NURSING ---
report called to Marisol in TCU. updated her that pts SBP was 170, tolerated 2 unit prbc tranfusion, intake and output, had a loose BM, and port dressing was changed.
== END 2017-09-05 18:48 | disposition skilled nursing facility (03) ==
LOC: MRI 10:58 → MEDOUTP 12:13 → MS3 12:14
PROVIDERS: Family Provider Family Medicine; PCP Family Medicine; Visit Provider Family Medicine Geriatric Medicine
DX: A41.9 Sepsis, unspecified organism (principal)
CPT/HCPCS: 74181; 82962; 86850; 86900; 86920; 86922; J7040; P9016; A4216

== ENCOUNTER 2017-09-06 07:25 | Emergency (ER) | payer MEDICARE, OTHER, SELFPAY ==
[2017-09-06 07:27] VITALS: BP 159/88; PULSE 83; RESP 23; TEMP 36.7; O2SAT 94; BMI 32.1
[2017-09-06 08:21] LABS: Absolute Lymphocyte Count 0.82 X10^3/ul (0.83-4.51); Absolute Neutrophil Count 5.8 X10^3/uL (2.0-7.7); Basophil# 0.02 X10^3/uL; Basophil% 0.3 % (0-1); Eosinophil# 0.48 X10^3/uL; Eosinophils% 6.1 % (0-5); Hematocrit 28.6 % (40-54); Hemoglobin 9.2 g/dl (13.0-16.5); Lymphocyte # 0.82 X10^3/ul (4.0); Lymphocyte % 10.4 % (19-41); Mean Corp Hgb Conc 32.2 g/gl (32-36); Mean Corpuscular Hgb 28.4 pg (27.0-32.0); Mean Corpuscular Volume 88.3 fL (80-94); Mean Platelet Vol. 8.5 fl (6.2-12.0); Monocyte# 0.78 X10^3/uL; Monocyte% 9.9 % (0-10); Neutrophil # 5.77 X10^3/uL (2.7-7.7); Neutrophil % 72.8 % (47-70); POSITIVE COUNT NO; POSITIVE DIFFERENTIAL NO; POSITIVE MORPHOLOGY NO; Platelet Count 272 K/mm3 (150-450); RBC Distribution Width CV 15.5 % (11.6-14.6); RBC Distribution Width SD 48.9 fl (35.1-43.9); Red Blood Count 3.24 M/mm3 (4.6-6.2); White Blood Count 7.9 K/mm3 (4.4-11.0)
[2017-09-06 08:30] LABS: Partial Thromboplast Time 37.7 Seconds (24.1-36.2)
[2017-09-06 08:33] LABS: Anion Gap 10 (5-15); BUN 45 mg/dL (7-18); BUN/Creat Ratio 13.7 RATIO (10-20); Calcium,Total 8.4 mg/dL (8.5-10.1); Chloride 108 mmol/L (98-107); Creatinine, Serum 3.29 mg/dL (0.70-1.30); EST Glomerular Filtration Rate 20 mL/min (>60); Est Glom Filt Rate - Afr Amer 24 mL/min (>60); Estimated Creatinine Clearance 19.72 ml/min; Glucose 110 mg/dL (74-106); Sodium Level 141 mmol/L (136-145)
[2017-09-06 08:49] LABS: International Normalized Ratio 1.2; Prothrombin Time (Protime)PT. 14.9 SECONDS (11.7-14.9)
--- NOTE | 2017-09-06 09:04 | ED.DCSUM_ITS ---
- ER Visit Summary Date of Service: 09/06/17 Chief Complaint: Anemia History of Present Illness: The patient is a [address] Catherine, Dr. Frye, and Dr. Dominguez and Dr. Bryant. He reports that he has had recurrent anemia for years. He got 2 units of packed red blood cells yesterday. They repeated his hemoglobin today and it was 6.3. He was sent to the emergency department for evaluation. Patient denies any known source of blood loss. No injury. No nosebleeds. No blood in his stools or black tarry stools. Physical Examination: Vitals: Stable. Afebrile. General: Well-nourished and well-developed. Head: Normocephalic atraumatic. Neck: Supple, no lymphadenopathy. No JVD. Nontender. Cardiovascular: Irregular rhythm with a 2 out of 6 systolic murmur. Respiratory: No respiratory distress. Clear to auscultation bilaterally. Site of the port on the right is clean, dry, and intact with no surrounding bleeding. Rectal: Nontender with brown stool in the vault. Abdominal: Soft, nontender, nondistended, normal bowel sounds. No guarding, rebound, or peritoneal signs. Back: Nontender. Extremities: Nontender, no edema. Skin: Normal color, no rash. Neurologic: Alert and oriented ?3. Cranial nerves II through XII are intact. Normal strength and sensation. Psych: Normal affect. Test Results: CBC shows a hemoglobin of 9.2, hematocrit of 28.6, segmented neutrophils of 73, lymphocytes of 10, and eosinophils of 6. Hemoglobin has ranged between 7.5 and 9.9 in 2018. Chem-7 is marked for chloride of 108, calcium 8.4, glucose of 110, BUN of 45, and creatinine of 3.29. He is Hemoccult negative. Emergency Department Course and Treatment: Patient has rested comfortably without complaint. Treatment Plan: The patient was discussed with Dr. Burnett. Appears the blood work this morning was erroneous. He will be discharged back to TCU for further evaluation and treatment. Disposition: Discharged to TCU in stable condition. Impression: 1. Anemia. 2. Coagulopathy on Eliquis. This note was generated with [employer] dictation software. It may contain incorrect words, spelling, and punctuation that were not noted in review of the chart prior to signing ED Disposition - Plan for ED Patient: Chief Complaint: Abn Labs Instructions: ED Anemia Type Not Specified Referrals: Ezekiel Silva Chi, MD [COURTESY STAFF PHYSICIAN] -
[2017-09-06 10:24] VITALS: BP 134/83; PULSE 76; PULSE 79; RESP 20; RESP 22; O2SAT 96
== END 2017-09-06 11:01 ==
LOC: ED 08:38
PROVIDERS: Emergency Provider Emergency Medicine; Family Provider Family Medicine; PCP Family Medicine
DX: D64.9 Anemia, unspecified (principal); Z79.02 Long term (current) use of antithrombotics/antiplatelets; I25.10 Atherosclerotic heart disease of native coronary artery without angina pectoris; I10 Essential (primary) hypertension; E78.00 Pure hypercholesterolemia, unspecified; I48.91 Unspecified atrial fibrillation; M19.90 Unspecified osteoarthritis, unspecified site; I25.2 Old myocardial infarction; Z85.528 Personal history of other malignant neoplasm of kidney; Z79.899 Other long term (current) drug therapy
CPT/HCPCS: 80048; 82274; 85025; 85610; 85730; 99282; A4216

== ENCOUNTER → 2017-10-13 12:11 | Outpatient (CLI) | payer MEDICARE, OTHER, SELFPAY ==
--- NOTE | 2017-10-13 12:13 | US_ITS ---
STUDY: SUPERFICIAL ULTRASOUND - BILATERAL PLEURAL CAVITIES. REASON FOR EXAM: Male, 76 years old. Possible pleural effusion. TECHNIQUE: A superficial ultrasound was performed with real-time and static oh-scale imaging. COMPARISON: None. FINDINGS: Assessment of the right and left pleural spaces was obtained. There is no evidence of pleural effusion. US/Chest IMPRESSION: No evidence of pleural effusion. Electronically Signed: Marquis Luna MD at 14:37 EDT Tel [phone], Service support ,
== END ==
PROVIDERS: Family Provider Family Medicine; PCP Family Medicine; Visit Provider Internal Medicine Medical Oncology
DX: C64.1 Malignant neoplasm of right kidney, except renal pelvis (principal); J91.8 Pleural effusion in other conditions classified elsewhere
CPT/HCPCS: 76604

== ENCOUNTER → 2017-10-14 12:29 | Outpatient (CLI) | payer MEDICARE, OTHER, SELFPAY ==
--- NOTE | 2017-10-14 12:32 | CT_ITS ---
STUDY: CT CHEST WITHOUT CONTRAST REASON FOR EXAM: Male, 76 years old. Pleural effusion. History of renal cancer. RADIATION DOSAGE (If Supplied By Facility): CTDIvol = ( 18.77 ) mGy, DLP = ( 684.80 ) mGycm TECHNIQUE: Transaxial imaging was performed without the administration of intravenous contrast material. Individualized dose optimization techniques were used for this CT. COMPARISON: 09/03/2017. FINDINGS: Moderate hyperexpansion of the lungs. No infiltrates. No effusions. 4 mm nodule in the peripheral left lower lobe on axial image 80. 5 mm nodule in the right lateral costophrenic angle image 96. 1.3 cm noncalcified nodule in the medial left vertebral sulcus image 101. There is borderline cardiomegaly. Sternal cerclage wires and vascular clips are present from a prior sternotomy and coronary artery bypass graft procedure (CABG). Prosthetic aortic valve. There are multiple small lymph nodes within the mediastinum, which are normal in size and morphology most compatible with reactive lymph hyperplasia, stable. Normal hilar regions. Normal unenhanced pulmonary arteries. There is atherosclerotic calcification of the aortic arch with tortuosity and elongation of the aortic arch and descending thoracic aorta. There are multi-level degenerative changes of the thoracic spine. Mild bilateral retrocrural adenopathy. CT/Chest without Contrast IMPRESSION: No effusions. COPD. Pulmonary nodules as above, recommend follow-up in 3-4 months. Mild adenopathy. Electronically Signed: Milton Perez MD at 8:38 EDT , Service support ,
== END ==
PROVIDERS: Family Provider Family Medicine; PCP Family Medicine; Visit Provider Internal Medicine Medical Oncology
DX: J90 Pleural effusion, not elsewhere classified (principal); C64.1 Malignant neoplasm of right kidney, except renal pelvis
CPT/HCPCS: 71250

== ENCOUNTER → 2017-10-26 08:19 | Outpatient (CLI) | payer MEDICARE, OTHER, SELFPAY ==
--- NOTE | 2017-10-26 09:00 | PET_ITS ---
EXAMINATION: FDG PET CT INDICATIONS: A 76-year-old male with reported history of renal cell carcinoma presenting for restaging examination and evaluation of pulmonary nodularity. COMPARISON EXAMINATION: CT of the chest report dated 10/14/17, MRI of the abdomen report dated 09/05/17, CT of the abdomen and pelvis report dated 09/03/17. TECHNIQUE: Following the intravenous administration of 13.17 mCi of F-18 deoxyglucose via the left antecubital fossa, multiplanar image acquisitions of the neck, chest, abdomen and pelvis to level of mid thigh, obtained at one hour post radiopharmaceutical administration contemporaneously interpreted with the current CT of the neck, chest, abdomen and pelvis to level of mid thigh, dated 10/26/[address] of the chest report dated 10/14/17, MRI of the abdomen report dated 09/05/17, CT of the abdomen and pelvis report dated 09/03/17 reveal: SERUM GLUCOSE LEVEL: 121 mg/dl. HEIGHT: 70 inches. WEIGHT: 211 lbs. FINDINGS: 1. There is no quantitative scintigraphic evidence of abnormal increased glucose metabolism on meticulous inspection of whole body acquisitions to include all three axis reconstructions. 2. Normal physiologic distribution of the radiopharmaceutical is apparent in the hepatic and splenic parenchyma, left kidney, bladder and visualized intestinal tract. There is uniform distribution of the radiopharmaceutical concentration compared on the cerebellar hemispheres and cerebral cortex. Diffuse intestinal tract activity is noted throughout all four quadrants of the abdominal-pelvic retroperitoneum, mesentery consistent with normal physiologic distribution of the radiopharmaceutical. Prominent glucose concentration is observed in the descending, as well as thoracic aorta. Pertinent CT findings are as follows. CHEST: There is no evidence of abnormal increased glucose metabolism within the context of the left lower posteromedial and right lower posterior lung zones to correlate with noncalcified densities demonstrated on CT of the chest dated 10/26/17. There is evidence of prior median sternotomy. Coronary arterial calcification is observed. Atherosclerotic calcification is defined in the thoracic aorta. The maximal axial diameter of the ascending thoracic aorta is 40.6 mm. Right-left axillary soft tissue densities are ametabolic. Calcified and noncalcified mediastinal soft tissue is non-glucose avid. ABDOMEN AND PELVIS: Surgical clips are noted in the right renal bed with absence of the right kidney commensurate with previous nephrectomy. There is borderline fatty metamorphosis defined within the hepatic parenchyma. Atherosclerotic calcification is defined in the abdominal aorta without evidence of dilatation, aneurysm formation. Abdominal-pelvic arterial calcification is observed. A fat-containing left inguinal hernia is noted. Right-left inguinal soft tissue densities with fatty hilus formation demonstrate no evidence of increased glucose metabolism. SKELETAL: Degenerative changes defined in the cervical, thoracic and lumbar spine demonstrate no evidence for glucose hypermetabolism. PET/PET/CT Tumor Base -Thigh Subs IMPRESSION: 1. NEGATIVE EXAMINATION. There is no definitive quantitative scintigraphic evidence of recurrent-metastatic viable neoplasm. 2. Noncalcified parenchymal densities demonstrated in the bilateral lower posterior lung zones, right-left lower lobes demonstrate no evidence of facilitated glucose metabolism. 3. Anatomic stability may be ensured in the bilateral posterobasilar hemithorax pulmonary parenchymal noncalcified densities with repeat CT of the thorax in six months. (Lucina, Seminars in Thoracic and Cardiovascular Surgery 14:292, 2002). 4. Meticulous attention paid to the inferior pole of the left kidney demonstrates no evidence of quantitatively significant increased glucose metabolism. 5. Prominent glucose metabolism defined in the descending thoracic, as well as abdominal aorta is commensurate with activated leukocytes associated with atherosclerotic plaque formation. (Roberto et al, Clinical Nuclear Medicine 29:93, 2004). Electronic Signature Dereje Arzola D.O. Electronically Signed: Dereje Arzola DO at 23:39 EDT Tel , Service support ,
== END ==
PROVIDERS: Family Provider Family Medicine; PCP Family Medicine; Visit Provider Internal Medicine Medical Oncology
DX: C64.1 Malignant neoplasm of right kidney, except renal pelvis (principal); N28.89 Other specified disorders of kidney and ureter
CPT/HCPCS: 78815; A9552

== ENCOUNTER → 2017-11-07 08:10 | Outpatient (CLI) | payer MEDICARE, OTHER, SELFPAY ==
[2017-11-07 09:10] LABS: Hematocrit 31.2 % (40-54); Hemoglobin 9.9 g/dl (13.0-16.5)
[2017-11-07 09:33] LABS: BUN 62 mg/dL (7-18); Calcium,Total 8.7 mg/dL (8.5-10.1); Chloride 107 mmol/L (98-107); Creatinine, Serum 3.12 mg/dL (0.70-1.30); EST Glomerular Filtration Rate 21 mL/min (>60); Est Glom Filt Rate - Afr Amer 25 mL/min (>60); Phosphorus 3.9 mg/dL (2.5-4.9); Potassium 3.8 mmol/L (3.5-5.1); Sodium Level 139 mmol/L (136-145); Uric Acid 6.8 mg/dL (3.5-7.2)
== END ==
PROVIDERS: Family Provider Family Medicine; PCP Family Medicine; Visit Provider Internal Medicine Nephrology
DX: N18.4 Chronic kidney disease, stage 4 (severe) (principal)
CPT/HCPCS: 36415; 82310; 82374; 82435; 82565; 84100; 84132; 84295; 84520; 84550; 85014; 85018

== ENCOUNTER 2017-11-26 07:00 | Outpatient (RCR) | payer MEDICARE, OTHER, SELFPAY ==
--- NOTE | 2017-11-12 08:02 | HP.PTEVAL_ITS ---
Patient's Visit Information AMELIE ERICKSON Jr. is a 77 year old M referred to Physical Therapy by Haroldo Bryant MD with a diagnosis of Revision of L total knee arthroplasty. Date of Evaluation: 11/04/17 Physical Therapist: Byron Vegas - Visit Plan Frequency: 2-3x /Week Duration: 4-6 Weeks Plan: Start with L knee ROM focus on end range ext/flexion, glute med/quad/HS strengthening. PRogress to functional strengthening as tolerated. May use ice for pain control. - Subjective Subjective: Pt. is here today for his initial evaluation with diagnosis of revesion of L TKA. Pt. had his original replacement ~1 year ago. He started to have increased edema and then became septic. DOS: 08/28/17. Pt. then spent ~1 month on TCU. He is now taking antibiotics, her reports for life. Pt. reports 2/10 pain currently, its no bad. He followed up with his surgeon who wanted hiim to get increased motion. 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 Pt. uses mostly large equipment. Pt. reports doing occassional exercises at home. He reports occassional pain at night, but not much. Pt. is walking without AD, but does report slower liban. Pt. denies N/T in either LE. Pt. is pleased with current progress and is eager to continue to progress forward. - Pain L knee Pain Intensity (Out of 10): 2 Pain Intensity Range: 0, 4 Comment: my knee feel tired all the time. - Objective POSTURE: Pt. standing with normal posture, except slight reduction in L TKE resulting in slight R sided wt. shift. PALPATION: Pt. has normal well healing incision. pt. has no signs of infection, negative killian's sign. Pt. has no calf tenderness. Pt. has mild medial joint line tenderness. NEUROLOICAL: Pt. has normal sensation to light and sharp touch of bilateral LES. Pt. has 2+ achilles DTR bilaterally. Pt. is able to rise on heels and toes without visible weakness, but does require slight balance aide. ROM: R knee 0-0-128deg. L knee 0-5-105deg. PROM, AROM- 0-3-109deg. Pt. has normal hip ROM bilaterally. Pt. does have tight HS bilaterally, L worse than R. GAIT: Pt. is able to ambulate without AD, but does have decreased tempo, decreased step length bilaterally- but equal. STAIRS: Pt. is able to ascend with reciprocal pattern with 2 HR, descend with step to pattern with 2 HR. - Goals Goal 1:: Pt. to be I with HEP. Goal Time Frame: 4-6 Weeks Goal 2:: Pt. to have increased L knee ROM 0-0-120 deg of motion allowing for increased tolerance to all functional mobility. Goal Time Frame: 4-6 Weeks Goal 3:: Pt. to ambulate with normal pattern unlimited distances with improved tempo, without increase in pain. Goal Time Frame: 4-6 Weeks Goal 4:: Pt. to have increased strength in LLE by 1/2 grade throughout all effected musculature. Goal Time Frame: 4-6 Weeks Goal 5:: Pt. to sleep throughout the night with 0-1/10 pain in L allowing for increase quality of life. Goal Time Frame: 4-6 Weeks Goal 6:: Pt. to negotiate steps with 1 HR with reciprocal pattern with 0-2/10 pain. Goal Time Frame: 4-6 Weeks - Rehabilitation Potential Physical Therapy Diagnosis: Pt. has signs and symptoms consistent with Revision of L total knee arthroplasty. Pt. has subsequent hypomobility, weakness and difficulty with gait. Pt. would benefit from PT to address above limitations progressing back to PLOF and work releated activities. Rehabilitation Potential: Excellent - Anticipated Interventions Patient/Client Instruction: Educate patient on: Condition, Plan of Care, Risk Factors, Benefits of Fitness Program For the Purpose of:: To improve safety, To improve health and function, To foster healthy habits, To improve decision making, To facilitate caregiver knowledge, To improve self management, To prevent re-injury, To improve ability to perform tasks related to life management, To improve tolerance to ADL's Therapeutic Exercise to Include: Strength training, Power training, Endurance training, Balance training, Postural training, Flexibilty training, Gait and locomotor training, Passive ROM, Active ROM For the Purpose of:: To decrease pain, To decrease swelling/inflammation, To increase ROM, To improve nutrient delivery to tissue, To increase oxygenation perfusion, To improve muscle performance and motor function, To improve gait and locomotor functions, To improve health of tissue, To decrease soft tissue restriction, To increase flexibility/ROM, To improve endurance, To improve balance, To improve safety with gait, To assume or resume ADL's Manual Therapy Techniques to Include: Mobilization, Passive ROM, Soft tissue mobilization For the Purpose of:: To decrease pain, To decrease swelling/inflammation, To increase ROM Cryotherapy (ice pack, ice massage): Yes For the Purpose of:: To decrease pain, To increase ROM Thank you for the opportunity to evaluate your patient. For Medicare and Medicare HMO plans, please review the plan of care and approve it. It will need to be FAXED BACK to us at [phone] for Medicare purposes. Please let me know if there are questions or concerns regarding this plan of care. Physician Signature: Date:
--- NOTE | 2017-12-01 07:48 | HP.PTREVAL_ITS ---
Haroldo Bryant MD, It has been my pleasure to treat AMELIE ERICKSON Jr. over the last 7 visits for Revision of L total knee arthroplasty. Please see the progress note below for an update on the physical therapy plan of care! Subjective: Pt has follow-up appt with surgeon next week. Objective/Function: L knee AROM - 0-5-115, L knee PROM- 0-2-110. Pt is amb without AD with slow tempo, negotiates stairs with reciprocal pattern, improved functional quad and hamstring strength, and reviewed HEP. Pt to follow up with surgeon next week. He has been progressing well with exercises and with stretching. He continues to require instruction to focus on ROM, TKE and knee flexion. Pt. reports understanding. Plan Plan: Pt. to follow up with physician at this point in time. Goals Goal 1:: Pt. to be I with HEP. Goal Time Frame: 4-6 Weeks Goal Progress: Goal Met Goal 2:: Pt. to have increased L knee ROM 0-0-120 deg of motion allowing for increased tolerance to all functional mobility. Goal Time Frame: 4-6 Weeks Goal Progress: Progressing Goal 3:: Pt. to ambulate with normal pattern unlimited distances with improved tempo, without increase in pain. Goal Time Frame: 4-6 Weeks Goal Progress: Progressing Goal 4:: Pt. to have increased strength in LLE by 1/2 grade throughout all effected musculature. Goal Time Frame: 4-6 Weeks Goal Progress: Progressing Goal 5:: Pt. to sleep throughout the night with 0-1/10 pain in L allowing for increase quality of life. Goal Time Frame: 4-6 Weeks Goal Progress: Goal Met Goal 6:: Pt. to negotiate steps with 1 HR with reciprocal pattern with 0-2/10 pain. Goal Time Frame: 4-6 Weeks Goal Progress: Goal Met Anticipated Interventions Patient/Client Instruction: Educate patient on: Condition, Plan of Care, Risk Factors, Benefits of Fitness Program For the Purpose of:: To improve safety, To improve health and function, To foster healthy habits, To improve decision making, To facilitate caregiver knowledge, To improve self management, To prevent re-injury, To improve ability to perform tasks related to life management, To improve tolerance to ADL's Therapeutic Exercise to Include: Strength training, Power training, Endurance training, Balance training, Postural training, Flexibilty training, Gait and locomotor training, Passive ROM, Active ROM For the Purpose of:: To decrease pain, To decrease swelling/inflammation, To increase ROM, To improve nutrient delivery to tissue, To increase oxygenation perfusion, To improve muscle performance and motor function, To improve gait and locomotor functions, To improve health of tissue, To decrease soft tissue restriction, To increase flexibility/ROM, To improve endurance, To improve balance, To improve safety with gait, To assume or resume ADL's Manual Therapy Techniques to Include: Mobilization, Passive ROM, Soft tissue mobilization For the Purpose of:: To decrease pain, To decrease swelling/inflammation, To increase ROM Cryotherapy (ice pack, ice massage): Yes For the Purpose of:: To decrease pain, To increase ROM Please do not hesitate to contact me at [phone] by phone or Fax: if you have questions or concerns regarding this new plan of care! Sincerely, Byron Vegas
--- NOTE | 2018-04-13 14:14 | HP.PTDCNRP_ITS ---
HP - Discharge Summary (1) - Patient Information AMELIE ERICKSON Jr. was seen in my office for initial evaluation on 11/04/17. The following Plan of Care was established for this patient: Initial Frequency: 2-3x /Week Initial Duration: 4-6 Weeks - Anticipated Interventions Patient/Client Instruction: Educate patient on: Condition, Plan of Care, Risk Factors, Benefits of Fitness Program For the Purpose of:: To improve safety, To improve health and function, To foster healthy habits, To improve decision making, To facilitate caregiver knowledge, To improve self management, To prevent re-injury, To improve ability to perform tasks related to life management, To improve tolerance to ADL's Therapeutic Exercise to Include: Strength training, Power training, Endurance training, Balance training, Postural training, Flexibilty training, Gait and locomotor training, Passive ROM, Active ROM For the Purpose of:: To decrease pain, To decrease swelling/inflammation, To i ncrease ROM, To improve nutrient delivery to tissue, To increase oxygenation perfusion, To improve muscle performance and motor function, To improve gait and locomotor functions, To improve health of tissue, To decrease soft tissue restriction, To increase flexibility/ROM, To improve endurance, To improve balance, To improve safety with gait, To assume or resume ADL's Manual Therapy Techniques to Include: Mobilization, Passive ROM, Soft tissue mobilization For the Purpose of:: To decrease pain, To decrease swelling/inflammation, To increase ROM Cryotherapy (ice pack, ice massage): Yes For the Purpose of:: To decrease pain, To increase ROM This patient was last seen in our office 11/26/17. Pertinent comments regarding their Physical therapy will appear below: Pt. was seen in PT for his revision of his TKA. Pt. progressed as expected, but did have sligth deficit with ROM. Pt. desired to continue with exercises on own at this point in time, I left the case open in case he desired to return. He has not been seen in ~5 months and will be DC from PT at this point in time. At this point I will be discontinuing this patient from physical therapy. I would be happy to see this patient again in the future if found appropriate by the physician. Thank you! Byron Vegas
== END 2017-11-26 19:00 | disposition home or self-care (01) ==
LOC: PT 07:00
PROVIDERS: Family Provider Family Medicine; PCP Family Medicine; Visit Provider Specialist
DX: Z96.652 Presence of left artificial knee joint (principal); T84.54XD Infection and inflammatory reaction due to internal left knee prosthesis, subsequent encounter
CPT/HCPCS: 97110; 97162; 97530

== ENCOUNTER → 2018-01-04 07:39 | Outpatient (CLI) | payer MEDICARE, OTHER, SELFPAY ==
--- NOTE | 2018-01-04 07:41 | CT_ITS ---
STUDY: CT ABDOMEN AND PELVIS WITHOUT CONTRAST REASON FOR EXAM: Male, 77 years old. FOLLOW UP RENAL CA RIGHT NEPHRECTOMY HX-CABG W/ sTENT, HTN, DIAB, UMBILICAL HERNIA RADIATION DOSAGE (If Supplied By Facility): CTDIvol = ( 16.82 ) mGy, DLP = ( 1526.58 ) mGycm TECHNIQUE: Transaxial images were obtained from the dome of the diaphragm to the symphysis pubis without oral contrast, and without intravenous contrast. Sagittal and coronal images were reconstructed. COMPARISON: 3.1.18 FINDINGS: Significant improvement in the small bilateral pleural effusions. The visualized portions of the heart are within normal limits. Multiple median sternotomy wires are noted consistent for cardiac surgery. Normal liver. Normal gallbladder and extrahepatic biliary system. Normal spleen. There is a 19 x 22 mm hypodensity of the mid body of the pancreas. This is 13 Hounsfield units. This may be due to pancreatic pseudocyst. Normal bilateral adrenal glands. Right nephrectomy changes. Normal left kidney. Normal visualized stomach. Normal small intestine. Stool throughout the colon. The appendix is visualized and appears normal. The appendix is noted in the right upper quadrant. There are calcifications of the abdominal aorta and vascular structures. This is consistent for atherosclerotic disease. There is no abdominal aortic aneurysm. Normal inferior vena cava. Subcentimeter mesenteric lymph nodes. Normal urinary bladder. There is enlargement of the prostate gland. There are bilateral inguinal hernias containing fat. There is no bowel involvement. There is no incarceration. There is no findings suggesting that this is causing a bowel obstruction. There are degenerative changes of the osseous structures. CT/Abdomen/Pel W ORAL Cont Only IMPRESSION: Right nephrectomy changes. Significant improvement in the small bilateral pleural effusions. Midline epigastric ventral hernia containing intra-abdominal fat. Constipation There is a 19 x 22 mm hypodensity of the mid body of the pancreas. This is 13 Hounsfield units. This may be due to pancreatic pseudocyst. This is PET negative. Other findings as above. Electronically Signed: Ronn Pham MD at 18:09 EDT , Service support ,
--- NOTE | 2018-01-04 07:42 | CT_ITS ---
STUDY: CT CHEST WITHOUT CONTRAST REASON FOR EXAM: Male, 77 years old. FOLLOW UP RENAL CA RIGHT NEPHRECTOMY HX-CABG W/ STENT,HTN,DIAB,UMBILICAL HERNIA RADIATION DOSAGE (If Supplied By Facility): CTDIvol = ( 16.82 ) mGy, DLP = ( 1526.58 ) mGycm TECHNIQUE: Transaxial imaging was performed without the administration of intravenous contrast material. Individualized dose optimization techniques were used for this CT. COMPARISON: 10.14.17 FINDINGS: There is no pneumothorax. There is hyperinflation of the lungs consistent with chronic obstructive lung disease (COPD). Small bilateral pleural effusions The thyroid is heterogenous. It contains nodules. This should be further evaluated with ultrasound. This can be performed as an outpatient. Stable subcentimeter axillary lymph nodes. Stable calcified and noncalcified mediastinal nodes. Multiple median sternotomy wires are noted consistent for cardiac surgery. There is a 2.5 mm left lower lobe nodule. Series 6 image 82. There is a 4.2 mm right lower lobe nodule. Series 6 image 21. Stable calcified granuloma left lower lobe. Stable calcified granuloma of the right lower lobe laterally. Series 6 image 87. There are calcifications of the coronary arteries. There is moderate cardiac enlargement. Normal hilar regions. Normal pulmonary arteries. There is atherosclerotic calcification of the aortic arch with tortuosity and elongation of the aortic arch and descending thoracic aorta. There are multi-level degenerative changes of the thoracic spine. There is no demonstrated abnormality of the visualized upper abdomen. CT/Chest without Contrast IMPRESSION: Stable bilateral lower lobe pulmonary nodules. Small bilateral pleural effusions Stable calcified and noncalcified mediastinal nodes. The thyroid is heterogenous. It contains nodules. This should be further evaluated with ultrasound. This can be performed as an outpatient. Follow up at routine intervals is recommended for a total of 2 years if clinically indicated. Fleischner Society recommendations. Less than 4mm. No follow up need unless pt is high risk. 4-6mm nodules: Follow up at 12 months. If no change in size no further follow up. For high risk patients, 4-6mm nodule requires 6-12mo follow up then 18-24mo follow up if no change. For lung nodules 6 to 8 mm in size, if the patient is considered high risk for lung cancer, follow-up CT in 3 to 6 months is recommended, then at 9-12 mo, and then at 24mo if no change. If the patient is considered low risk for lung cancer, follow-up CT in 6 to 12 months and then 18-24mo if no change is recommended. For >8mm nodules, low and high risk categories, Follow up CT at 3, 9, and 24months. Dynamic CT with IV or PET or Biopsy. Electronically Signed: Ronn Pham MD at 17:26 EDT , Service support ,
== END ==
PROVIDERS: Family Provider Family Medicine; PCP Family Medicine; Visit Provider Internal Medicine Medical Oncology
DX: C64.1 Malignant neoplasm of right kidney, except renal pelvis (principal)
CPT/HCPCS: 71250; 74176

== ENCOUNTER → 2018-01-26 12:44 | Outpatient (CLI) | payer MEDICARE, OTHER, SELFPAY ==
--- NOTE | 2018-01-26 13:00 | MRI_ITS ---
STUDY: MRI ABDOMEN WITHOUT CONTRAST REASON FOR EXAM: Male, 77 years old. Follow-up right kidney cancer status post right nephrectomy. Previous lesion also of the left kidney. TECHNIQUE: Standardized fat and water weighted pulse sequences were obtained in all 3 orthogonal planes. COMPARISON: CT abdomen and pelvis 2017. CT chest 2017. PET CT 10/26/2017. CT abdomen and pelvis 09/03/2017 and 11/14/2016. FINDINGS: On the CT abdomen and pelvis 01/04/2018 there was evidence of right nephrectomy with no abnormality seen in the right nephrectomy bed. There was no evidence of left renal lesion. There is a cyst of the pancreatic tail measuring up to 2.4 cm along the axis of the pancreas. On prior CT imaging of 11/14/2016 there was no evidence of left renal lesion. The pancreatic cyst was present, with similar features. On CT abdomen and pelvis of 12/28/2015, the pink-red lesion was present with a greatest dimension at that time approximately 2.33 cm along the long axis of the pancreas. This represents minimal to no change since 2015, accounting for slight differences in technique. The patient's nephrectomy occurred between the study of 12/28/2015 and 05/27/2016 removing a large right-sided renal mass and the entirety of the right kidney. On today's study, there is a normal appearance of the evaluated portions of the liver, gallbladder, biliary tree, bilateral adrenal glands, left kidney. There is no abnormality of the right renal fossa. Evaluated portions of stomach, small and large bowel are normal. The mesentery is unremarkable. There is no evidence of retroperitoneal lymphadenopathy. A few tiny lymph nodes are present in the retroperitoneum periaortic. There is trace pancreatic ductal ectasia 3 mm or less. The cyst of the proximal tail of the pancreas exhibits mild marginal lobulations, otherwise smoothly circumscribed, with a greatest long axis dimension of 2.45 cm, greatest anterior-posterior dimension of 1.8 cm. MRI/Abdomen without Contrast IMPRESSION: The cyst of the proximal pancreatic tail may have grown very slightly since imaging of 2016. Differential considerations are broad and include simple cyst, remnant pancreatic pseudocyst, mucinous or serous pancreatic neoplasm, branch ductal IPMN. Given the size, less than 2 cm in greatest dimension, surveillance imaging is recommended in one year. Noncontrast MRI pancreas, or CT pancreas with IV contrast would be appropriate. There is no left renal lesion. There is no evidence of recurrent right renal neoplasm or metastatic disease. Electronically Signed: Dereje Aponte, at 18:52 EDT Tel , Service support ,
--- NOTE | 2018-01-26 13:53 | CT_ITS ---
STUDY: CT CHEST WITHOUT CONTRAST REASON FOR EXAM: Male, 77 years old. Renal cancer, CABG, right nephrectomy. RADIATION DOSAGE (If Supplied By Facility): CTDIvol = ( 16.19 ) mGy, DLP = ( 529.30 ) mGycm TECHNIQUE: Transaxial imaging was performed without the administration of intravenous contrast material. : Sagittal 2-D MPR Individualized dose optimization techniques were used for this CT. COMPARISON: CT abdomen and pelvis 01/04/2018, PET/CT 10/26/2017.. CT chest 10/14/2017, 09/03/2017, 01/09/2009 FINDINGS: Supraclavicular: A cystlike low-density nodule of the left thyroid inferior pole was recently PET negative, and unchanged compared to recent prior imaging. There is no supraclavicular lymphadenopathy. Body wall soft tissues: No acute process. Mild symmetric gynecomastia. Osseous structures: Median sternotomy. Minimal thoracic spondylosis. Mild kyphosis. No suspicious lesions. Upper abdomen: Cyst of the proximal pancreatic tail described in the MRI abdomen performed today. Right nephrectomy. No acute process is seen otherwise in the upper abdomen. Mediastinum: Normal esophagus. Subcarinal mediastinal lymph node measures approximately 2.97 cm short axis dimension. Several pretracheal lymph nodes are present, the largest measuring approximately 1.7 cm short axis. Lymph nodes are seen in the aortopulmonary window and prevascular chains, short axis measurements up to 1.2 cm. These lymph nodes were quiescent on recent PET imaging and are associated several calcified lymph nodes suggesting old granulomatous disease. Similar lymph nodes were seen within the chest on imaging as far back as 2008. Benign. Cardiac: Myocardium Egli, no pericardial effusion, prominent calcification of the [place] coronary arteries, dense calcification of the mitral valve annulus, aortic valve bioprosthetic, aneurysmal ectasia of the ascending aorta and proximal arch up to 4.5 cm. Ectatic central pulmonary arteries up to 4 cm in the main pulmonary artery. Lungs: Small layering left pleural effusion. A left lower lung medial basilar subpleural pulmonary nodule measures approximately 11 mm, recently PET negative. There are no other suspicious pulmonary lesions. At the bases there is mild interlobular septal thickening, with minimal patchy groundglass opacities perihilar suggesting a component of very mild cardiogenic pulmonary edema/CHF. CT/Chest without Contrast IMPRESSION: Suspected minimal CHF. Small left effusion. Minimal features of interstitial pulmonary edema. Left lung base medial basilar pulmonary nodule adjacent to the pleural margin, solid features, smoothly circumscribed margins, greatest dimensions approximately 11 mm. Recently negative on PET/CT. Cystlike left thyroid nodule also recently negative on PET/CT. Chronic mediastinal lymphadenopathy unchanged since imaging as far back as 2008. Chronic cardiac disease described above. Electronically Signed: Dereje Aponte, at 19:01 EDT Tel , Service support ,
== END ==
PROVIDERS: Family Provider Family Medicine; PCP Family Medicine; Visit Provider Urology
DX: C64.9 Malignant neoplasm of unspecified kidney, except renal pelvis (principal)
CPT/HCPCS: 71250; 74181

== ENCOUNTER → 2018-02-10 08:06 | Outpatient (CLI) | payer MEDICARE, OTHER, SELFPAY ==
[2018-02-10 09:36] LABS: Anion Gap 10 (5-15); BUN 75 mg/dL (7-18); BUN/Creat Ratio 22.1 RATIO (10-20); Calcium,Total 8.5 mg/dL (8.5-10.1); Chloride 108 mmol/L (98-107); EST Glomerular Filtration Rate 19 mL/min (>60); Est Glom Filt Rate - Afr Amer 23 mL/min (>60); Glucose 136 mg/dL (74-106); Potassium 4.3 mmol/L (3.5-5.1); Sodium Level 144 mmol/L (136-145)
== END ==
PROVIDERS: Family Provider Family Medicine; PCP Family Medicine; Visit Provider Urology
DX: C64.9 Malignant neoplasm of unspecified kidney, except renal pelvis (principal)
CPT/HCPCS: 36415; 80048

== ENCOUNTER → 2018-03-15 11:00 | Outpatient (CLI) | payer MEDICARE, OTHER, SELFPAY ==
[2018-03-15 11:35] LABS: Hematocrit 34.1 % (40-54); Hemoglobin 10.8 g/dl (13.0-16.5); Mean Corp Hgb Conc 31.7 g/gl (32-36); Mean Corpuscular Hgb 28.8 pg (27.0-32.0); Mean Corpuscular Volume 90.9 fL (80-94); Platelet Count 139 K/mm3 (150-450); RBC Distribution Width CV 15.6 % (11.6-14.6); RBC Distribution Width SD 51.4 fl (35.1-43.9); Red Blood Count 3.75 M/mm3 (4.6-6.2); White Blood Count 6.5 K/mm3 (4.4-11.0)
[2018-03-15 11:37] LABS: Scan Indicated on CBC? Y/N NO
[2018-03-15 11:53] LABS: Protein, Urine (Random) 140.8 mg/dL (<11.9); Protein:Creat Ratio 1983 mg/g CRE (0-200)
[2018-03-15 12:05] LABS: BUN 61 mg/dL (7-18); Calcium,Total 8.9 mg/dL (8.5-10.1); Chloride 109 mmol/L (98-107); Creatinine, Serum 3.13 mg/dL (0.70-1.30); EST Glomerular Filtration Rate 21 mL/min (>60); Est Glom Filt Rate - Afr Amer 25 mL/min (>60); Phosphorus 3.7 mg/dL (2.5-4.9); Potassium 4.2 mmol/L (3.5-5.1); Sodium Level 142 mmol/L (136-145); Uric Acid 6.5 mg/dL (3.5-7.2)
[2018-03-15 12:26] LABS: PTHIN 140.6 pg/mL (18.4-80.1)
== END ==
PROVIDERS: Family Provider Family Medicine; PCP Family Medicine; Visit Provider Internal Medicine Nephrology
DX: I12.9 Hypertensive chronic kidney disease with stage 1 through stage 4 chronic kidney disease, or unspecified chronic kidney disease (principal); N18.4 Chronic kidney disease, stage 4 (severe); R80.1 Persistent proteinuria, unspecified; E87.1 Hypo-osmolality and hyponatremia
CPT/HCPCS: 36415; 82310; 82374; 82435; 82565; 82570; 83970; 84100; 84132; 84156; 84295; 84520; 84550; 85027

== ENCOUNTER → 2018-05-28 10:27 | Outpatient (CLI) | payer MEDICARE, OTHER, SELFPAY ==
[2018-05-28 11:53] LABS: Hematocrit 32.9 % (40-54); Hemoglobin 10.5 g/dl (13.0-16.5)
[2018-05-28 12:18] LABS: BUN 59 mg/dL (7-18); Calcium,Total 8.7 mg/dL (8.5-10.1); Chloride 105 mmol/L (98-107); Creatinine, Serum 3.51 mg/dL (0.70-1.30); EST Glomerular Filtration Rate 18 mL/min (>60); Est Glom Filt Rate - Afr Amer 22 mL/min (>60); Phosphorus 3.9 mg/dL (2.5-4.9); Potassium 3.9 mmol/L (3.5-5.1); Sodium Level 141 mmol/L (136-145); Thyroid Stim Hormone (TSH) 4.23 uIU/mL (0.358-3.74); Uric Acid 7.4 mg/dL (3.5-7.2)
[2018-05-28 12:20] LABS: PTHIN 64.7 pg/mL (18.4-80.1)
== END ==
PROVIDERS: Family Provider Family Medicine; PCP Family Medicine; Referring Provider Internal Medicine Nephrology; Visit Provider Internal Medicine Nephrology
DX: I12.9 Hypertensive chronic kidney disease with stage 1 through stage 4 chronic kidney disease, or unspecified chronic kidney disease (principal); N18.4 Chronic kidney disease, stage 4 (severe)
CPT/HCPCS: 36415; 82310; 82374; 82435; 82565; 83970; 84100; 84132; 84295; 84443; 84520; 84550; 85014; 85018

== ENCOUNTER → 2018-07-07 12:43 | Outpatient (CLI) | payer MEDICARE, OTHER, SELFPAY ==
[2018-04-20 15:12] VITALS: BMI 30.4
--- NOTE | 2018-07-07 12:45 | CT_ITS ---
STUDY: CT CHEST WITHOUT CONTRAST REASON FOR EXAM: Male, 77 years old. Right renal carcinoma. RADIATION DOSAGE (If Supplied By Facility): CTDIvol = ( 19.61 ) mGy, DLP = ( 611.12 ) mGycm TECHNIQUE: Transaxial imaging was performed without the administration of intravenous contrast material. Individualized dose optimization techniques were used for this CT. COMPARISON: 01/26/2018 FINDINGS: The lungs are mildly hyperinflated with flattening diaphragms compatible with COPD. There is increased size of several pulmonary nodules in the right lung, nodule in the posterior right lower lobe now measures 9 mm and previously measured 5 mm. Another nodule in the pleural surface along the right lateral lower lobe now measures 7 mm and previously measured 3 mm. There are several other new pulmonary nodules throughout the right and left lung. There remains interstitial prominence throughout suggesting a component of pulmonary edema. Development of small bilateral pleural effusions; left greater than right. Cardiomegaly is noted, moderate in nature. Coronary artery disease is seen. Stable median sternotomy wires. Slight interval increase in size within bulky mediastinal and bihilar lymphadenopathy. Normal unenhanced pulmonary arteries. There is atherosclerotic calcification of the aortic arch with tortuosity and elongation of the aortic arch and descending thoracic aorta. There are multi-level degenerative changes of the thoracic spine. CT/Chest without Contrast IMPRESSION: Continued mild diffuse pulmonary edema with small bilateral effusions. Increased size of bilateral pulmonary nodules since the exam of January suggesting worsening metastatic disease. Increased size of bulky mediastinal and bihilar lymphadenopathy. Electronically Signed: Vu Cintron DO at 12:11 EST Tel , Service support ,
--- NOTE | 2018-07-07 13:07 | CT_ITS ---
STUDY: CT ABDOMEN AND PELVIS WITHOUT CONTRAST REASON FOR EXAM: Male, 77 years old. Right renal carcinoma. Follow-up RADIATION DOSAGE (If Supplied By Facility): CTDIvol = ( 23.05 ) mGy, DLP = ( 1265.18 ) mGycm TECHNIQUE: Transaxial images were obtained from the dome of the diaphragm to the symphysis pubis with oral contrast, and without intravenous contrast. Sagittal and coronal images were reconstructed. Individualized dose optimization techniques were used for this CT. COMPARISON: 01/04/2018 FINDINGS: Small bilateral effusions with pulmonary edema. Stable cardiomegaly Unenhanced liver demonstrates normal appearance. Small amount of gallbladder sludge without evidence of gallbladder enlargement. There are multiple benign calcified granulomata of the spleen. There is diffuse atrophy of the pancreas. Stable small cystic structure in the mid body of the pancreas compatible with pseudocyst formation. Normal bilateral adrenal glands. Status post right nephrectomy. Grossly unremarkable left kidney with stable vascular calcifications . No evidence of bulky retroperitoneal lymphadenopathy. Normal visualized stomach. Normal small intestine. There are multiple colonic diverticula consistent with diverticulosis. There is non-visualization of the appendix. There is diffuse atherosclerotic calcification of the abdominal aorta, without a demonstrated aneurysm. Normal inferior vena cava. Normal retroperitoneum. Normal urinary bladder. There is enlargement of the prostate gland. Normal abdominal wall. There are diffuse degenerative changes of the visualized lumbar spine. CT/Abdomen/Pelvis without Cont IMPRESSION: Status post right nephrectomy. No acute findings in the abdomen or pelvis. No evidence of metastatic disease involving the abdomen or pelvis. Stable pancreatic pseudocyst Electronically Signed: Vu Cintron DO at 12:15 EST Tel , Service support ,
== END ==
PROVIDERS: Family Provider Family Medicine; PCP Family Medicine; Referring Provider Internal Medicine Medical Oncology; Visit Provider Internal Medicine Medical Oncology
DX: C64.1 Malignant neoplasm of right kidney, except renal pelvis (principal); R91.8 Other nonspecific abnormal finding of lung field
CPT/HCPCS: 71250; 74176

== ENCOUNTER → 2018-07-14 12:39 | Outpatient (CLI) | payer MEDICARE, OTHER, SELFPAY ==
[2018-07-13 13:36] VITALS: BMI 29.5
--- NOTE | 2018-07-14 12:43 | ECHOD_ITS ---
Reason For Study: Dyspnea/SOB Procedure This was a 2D Doppler, Color Flow transthoracic echocardiogram. Exam performed in department. Left Ventricle Normal LV size. Left ventricular systolic function is normal. The estimated ejection fraction is 53 %. Stage 3 diastolic dysfunction. Septal [place] : Hypokinetic. Right Ventricle Normal RV size. Normal systolic function. Atria The left atrium is severely enlarged. The right atrium is mildly enlarged. Mitral Valve Moderate diffuse mitral valve calcification. There is severe mitral annular calcification. Moderate (2+) mitral valve insufficiency. Tricuspid Valve Normal tricuspid valve. Moderate (2+) tricuspid valve insufficiency. Pulmonary artery systolic pressure is 59 mmHg. Moderate pulmonary hypertension. Aortic Valve Peak aortic valve gradient 34 mmHg. Mean aortic valve gradient 17 mmHg. Mild aortic stenosis. Calculated aortic valve area (continuity equation) is 1.2 cm2. Mild (1+) aortic valve insufficiency. Bioprosthetic aortic valve. Pulmonic Valve Normal pulmonic valve. Great Vessels Moderately dilated aortic root. The pulmonary artery is normal size. Inferior vena cava collapse with respiration. Pericardium/Pleural No pericardial effusion. MMode/2D Measurements & Calculations LVIDd: 5.9 cm IVSd: 0.97 cm LVOT diam: 1.7 cm LVIDs: 4.1 cm LVPWd: 1.3 cm LVOT area: 2.3 cm2 FS: 31.3 % Ao root diam: 4.3 cm LAV(MOD-bp): 152.4 ml LVAd ap4: 40.0 cm2 ACS: 1.3 cm LAV(MOD-sp2): 165.2 ml EDV(MOD-sp4): 164.7 ml LAV(MOD-sp4): 135.9 ml EDV(sp4-el): 165.0 ml LVAs ap4: 25.8 cm2 ESV(MOD-sp4): 76.0 ml ESV(sp4-el): 76.0 ml EF(MOD-sp4): 53.8 % EF(sp4-el): 53.9 % SV(MOD-sp4): 88.7 ml SV(sp4-el): 89.0 ml LA A4 area: 34.1 cm2 RA A4 area: 24.4 cm2 Time Measurements MV dec time: 0.27 sec Doppler Measurements & Calculations MV E max pastor: 206.9 cm/sec Lat Peak E' Pastor: 7.3 cm/sec Med Peak E' Pastor: 8.3 cm/sec MV A max pastor: 77.5 cm/sec E/E' lat: 28.2 E/E' med: 24.9 MV E/A: 2.7 MV V2 max: 244.0 cm/sec MV P1/2t max pastor: 244.6 cm/sec Ao V2 max: 292.5 cm/sec MV max P.8 mmHg MV P1/2t: 86.5 msec Ao max P.3 mmHg MV V2 mean: 110.8 cm/sec Ao V2 mean: 190.8 cm/sec MV mean P.5 mmHg MV dec slope: 828.3 cm/sec2 Ao mean P.2 mmHg MV V2 VTI: 55.9 cm MVA(P1/2t): 2.5 cm2 Ao V2 VTI: 58.8 cm MVA(VTI): 1.3 cm2 JOSIANE(I,D): 1.3 cm2 JOSIANE(V,D): 1.2 cm2 AI max pastor: 448.6 cm/sec LV V1 max: 156.7 cm/sec MR max pastor: 654.7 cm/sec AI max P.5 mmHg LV V1 max P.8 mmHg MR max P.5 mmHg LV V1 mean P.5 mmHg MR mean pastor: 480.4 cm/sec AI dec slope: 317.7 cm/sec2 LV V1 mean: 108.4 cm/sec MR mean P.3 mmHg AI P1/2t: 413.6 msec LV V1 VTI: 32.4 cm MR VTI: 220.3 cm SV(LVOT): 73.6 ml PA V2 max: 107.1 cm/sec PI end-d pastor: 130.7 cm/sec TR max pastor: 361.3 cm/sec TR max P.2 mmHg Interpretation Summary Normal LV size. Left ventricular systolic function is normal. The estimated ejection fraction is 53 %. Moderate (2+) mitral valve insufficiency. Pulmonary artery systolic pressure is 59 mmHg. Stage 3 diastolic dysfunction. Moderate pulmonary hypertension. Ordering Physician: Ravi Frye Referring Physician: Dejuan Catherine Performed By: Parish Pan RCS
== END ==
PROVIDERS: Family Provider Family Medicine; PCP Family Medicine; Referring Provider Internal Medicine Cardiovascular Disease; Visit Provider Internal Medicine Cardiovascular Disease
DX: I48.0 Paroxysmal atrial fibrillation (principal); R06.02 Shortness of breath
CPT/HCPCS: 93225; 93226; 93306

== ENCOUNTER → 2018-07-16 11:11 | Outpatient (CLI) | payer MEDICARE, OTHER, SELFPAY ==
[2018-07-13 13:36] VITALS: BMI 29.5
--- NOTE | 2018-07-16 12:02 | RAD_ITS ---
STUDY: X-RAY CHEST REASON FOR EXAM: Male, 77 years old. Dyspnea. COPD. Lung nodules. TECHNIQUE: PA and lateral views of the chest. COMPARISON: Comparison is made with prior chest radiograph dated July 29, 2017. FINDINGS: Stable elevation of the right hemidiaphragm. Increased markings at the lung bases as compared to prior study. This is worse in the right infrahilar region. This may represent atelectasis and/or infiltrate. There is blunting of the left costophrenic angle. Sternal cerclage wires and vascular clips are present from a prior sternotomy and coronary artery bypass graft procedure (CABG). The patient is status post mitral valve replacement. Mild cardiomegaly. Normal mediastinum and coco. Normal visualized pulmonary arteries. There is atherosclerotic calcification of the aortic arch with tortuosity. There are degenerative changes of the visualized thoracic spine. Normal visualized ribs, clavicles, and shoulders. There is no demonstrated abnormality of the visualized soft tissue structures of the upper abdomen. RAD/Chest PA and Lateral IMPRESSION: Progressive increased markings at the lung bases worse in the right infrahilar region. This may represent either atelectasis and/or early infiltrate. Follow-up is recommended. Electronically Signed: Marquis Luna MD at 9:47 EST Tel [phone], Service support ,
[2018-07-16 12:42] LABS: Absolute Lymphocyte Count 0.88 X10^3/ul (0.83-4.51); Absolute Neutrophil Count 6.4 X10^3/uL (2.0-7.7); Basophil# 0.01 X10^3/uL; Basophil% 0.1 % (0-1); Eosinophil# 0.49 X10^3/uL; Hematocrit 27.9 % (40-54); Hemoglobin 8.9 g/dl (13.0-16.5); Lymphocyte # 0.88 X10^3/ul (4.0); Lymphocyte % 10.8 % (19-41); Mean Corp Hgb Conc 31.9 g/gl (32-36); Mean Corpuscular Hgb 28.4 pg (27.0-32.0); Mean Corpuscular Volume 89.1 fL (80-94); Mean Platelet Vol. 9.2 fl (6.2-12.0); Monocyte# 0.44 X10^3/uL; Monocyte% 5.4 % (0-10); Neutrophil # 6.35 X10^3/uL (2.7-7.7); Neutrophil % 77.6 % (47-70); Platelet Count 197 K/mm3 (150-450); RBC Distribution Width CV 14.7 % (11.6-14.6); RBC Distribution Width SD 47.8 fl (35.1-43.9); Red Blood Count 3.13 M/mm3 (4.6-6.2); White Blood Count 8.2 K/mm3 (4.4-11.0)
[2018-07-16 12:43] LABS: Erythrocyte Sedimentation Rate 23 mm/hr (0-20); POSITIVE COUNT NO; POSITIVE DIFFERENTIAL NO; POSITIVE MORPHOLOGY NO
== END ==
PROVIDERS: Family Provider Family Medicine; PCP Family Medicine; Referring Provider Family Medicine; Visit Provider Family Medicine
DX: R06.09 Other forms of dyspnea (principal); R53.83 Other fatigue; D63.8 Anemia in other chronic diseases classified elsewhere
CPT/HCPCS: 36415; 71046; 85025; 85652; 86140; 87040

== ENCOUNTER → 2018-07-30 10:14 | Outpatient (CLI) | payer MEDICARE, OTHER, SELFPAY ==
[2018-07-13 13:36] VITALS: BMI 29.5
[2018-07-30 10:21] LABS: Bacteria 0 SEEN /hpf (None Seen); Mucous, Urine 0 SEEN /hpf (<or=2+); Red Blood Cells-Urine 0 SEEN /hpf (0-5); White Blood Cells 0 SEEN /hpf (0-5)
--- NOTE | 2018-07-30 10:55 | RAD_ITS ---
STUDY: X-RAY CHEST REASON FOR EXAM: Male, 77 years old. Pneumonia follow-up TECHNIQUE: PA and lateral views of the chest. COMPARISON: 07/16/2017 FINDINGS: Persistent asymmetric parenchymal opacity in the right infrahilar lower lobe is similar since the prior study. There is no demonstrated pleural abnormality. There is mild cardiac enlargement. C-arm the wires and prosthetic aortic valve noted. Normal visualized pulmonary arteries. There is atherosclerotic calcification of the aortic arch with tortuosity. There is demineralization of the osseous structures. Normal visualized ribs, clavicles, and shoulders. There is no demonstrated abnormality of the visualized soft tissue structures of the upper abdomen. RAD/Chest PA and Lateral IMPRESSION: 1. Persistent right infrahilar infiltrate. Either additional short-term follow-up x-ray or chest CT recommended. Electronically Signed: Edil Johnson MD at 18:39 EST , Service support ,
[2018-07-30 12:02] LABS: Color, Urine Yellow (Yellow); Glucose, Dipstick Normal (Normal); Ketone-Dipstick Negative (Negative); Leukocyte Esterase-Dipstick Negative /ul (Negative); Nitrite-Dipstick Negative (Negative); Occult Blood-Urine Negative /ul (Negative); Protein-Dipstick 100 mg/dl (Negative); Urine Bilirubin Dipstick Negative (Negative); Urine Clarity Sl. Cloudy (Clear); Urine Urobilinogen Normal (Normal)
[2018-07-30 12:08] LABS: Squamous Epithelial Cells - UA 0-5 SEEN /hpf (0-5)
[2018-07-30 12:30] LABS: ALB/GLOB Ratio 0.8 RATIO (0.9-2.4); AST(SGOT) 12 U/L (15-37); Alanine Aminotransfer ALT/SGPT 17 U/L (16-61); Alkaline Phosphatase 87 U/L (45-117); Anion Gap 12 (5-15); BUN 59 mg/dL (7-18); BUN/Creat Ratio 16.9 RATIO (10-20); Calcium,Total 9.9 mg/dL (8.5-10.1); Chloride 102 mmol/L (98-107); EST Glomerular Filtration Rate 18 mL/min (>60); Est Glom Filt Rate - Afr Amer 22 mL/min (>60); Globulin 3.9 g/dL (2.2-4.2); Glucose 147 mg/dL (74-106); Potassium 3.8 mmol/L (3.5-5.1); Protein, Total 6.9 g/dL (6.4-8.2); Sodium Level 140 mmol/L (136-145); Uric Acid 6.9 mg/dL (3.5-7.2)
[2018-07-30 12:36] LABS: Absolute Lymphocyte Count 0.76 X10^3/ul (0.83-4.51); Absolute Neutrophil Count 5.3 X10^3/uL (2.0-7.7); Basophil# 0.04 X10^3/uL; Basophil% 0.5 % (0-1); Eosinophil# 0.68 X10^3/uL; Eosinophils% 9.3 % (0-5); Hematocrit 27.6 % (40-54); Hemoglobin 8.6 g/dl (13.0-16.5); Lymphocyte # 0.76 X10^3/ul (4.0); Lymphocyte % 10.4 % (19-41); Mean Corp Hgb Conc 31.2 g/gl (32-36); Mean Corpuscular Hgb 27.6 pg (27.0-32.0); Mean Corpuscular Volume 88.5 fL (80-94); Mean Platelet Vol. 9.3 fl (6.2-12.0); Monocyte# 0.52 X10^3/uL; Monocyte% 7.1 % (0-10); Neutrophil # 5.27 X10^3/uL (2.7-7.7); Neutrophil % 72.4 % (47-70); Platelet Count 270 K/mm3 (150-450); RBC Distribution Width CV 14.4 % (11.6-14.6); RBC Distribution Width SD 44.9 fl (35.1-43.9); Red Blood Count 3.12 M/mm3 (4.6-6.2); White Blood Count 7.3 K/mm3 (4.4-11.0)
[2018-07-30 12:37] LABS: POSITIVE COUNT NO; POSITIVE DIFFERENTIAL NO; POSITIVE MORPHOLOGY NO
[2018-07-30 12:44] LABS: Microalbumin:Creatinine Ratio 690.2 mg/g CRE (<30 mg/g CRE)
== END ==
LOC: BFHLAB 10:16 → RAD 10:52
PROVIDERS: Family Provider Family Medicine; PCP Family Medicine; Referring Provider Family Medicine; Visit Provider Family Medicine
DX: E11.22 Type 2 diabetes mellitus with diabetic chronic kidney disease (principal); N18.4 Chronic kidney disease, stage 4 (severe); E11.59 Type 2 diabetes mellitus with other circulatory complications; D63.8 Anemia in other chronic diseases classified elsewhere; R79.82 Elevated C-reactive protein (CRP); J18.9 Pneumonia, unspecified organism
CPT/HCPCS: 36415; 71046; 80053; 81001; 82043; 82570; 84550; 85025; 86140; 87086

== ENCOUNTER → 2018-08-03 09:26 | Outpatient (CLI) | payer MEDICARE, OTHER, SELFPAY ==
[2018-07-13 13:36] VITALS: BMI 29.5
[2018-08-03] VITALS (7 sets, daily range): BP systolic 124–145; BP diastolic 61–93; PULSE 62–75; RESP 16–18; TEMP 36.2–36.9; O2SAT 98; BMI 28.5
== END ==
PROVIDERS: Family Provider Family Medicine; PCP Family Medicine; Visit Provider Family Medicine
DX: C64.1 Malignant neoplasm of right kidney, except renal pelvis (principal); D63.8 Anemia in other chronic diseases classified elsewhere
CPT/HCPCS: 36415; 36430; 86850; 86900; 86920; 86922; J7040; P9016; A4216

== ENCOUNTER → 2018-08-12 11:13 | Outpatient (CLI) | payer MEDICARE, OTHER, SELFPAY ==
[2018-08-03 09:33] VITALS: BMI 28.5
--- NOTE | 2018-08-12 11:15 | US_ITS ---
STUDY: RENAL ULTRASOUND - COMPLETE REASON FOR EXAM: Male, 77 years old. History of right renal cancer and right nephrectomy. TECHNIQUE: Ultrasound evaluation of the kidneys was performed with real-time and static ziegler-scale imaging. COMPARISON: None. FINDINGS: RIGHT KIDNEY: Surgically removed. LEFT KIDNEY: There is suboptimal visualization of the left kidney. Normal location of the left kidney, which is normal in size. The left kidney measures 10.7 x 5.5 x 5.5 cm. There is a normal cortex of the left kidney. The renal cortex measures 1.5 cm. There is no left renal mass or cyst. There are no left renal calculi. There is no left hydronephrosis. DISTAL LEFT URETER: There is non-visualization of the distal left ureter. There is no demonstrated left ureterovesical junction calculus. There is a visualized left ureteral jet. BLADDER: The distended urinary bladder has a volume of 206 ml. There is a normal wall thickness of the distended urinary bladder. There is no demonstrated mass within the urinary bladder. There are no demonstrated bladder calculi. The calculated prostate volume is 71.8 cc. US/Kidney and Bladder IMPRESSION: 1. Status post right nephrectomy. 2. No evidence of left hydronephrosis. 3. Enlarged prostate. Electronically Signed: Sam Ellis MD at 12:10 EST Tel , Service support ,
== END ==
PROVIDERS: Family Provider Family Medicine; PCP Family Medicine; Referring Provider Urology; Visit Provider Urology
DX: C64.1 Malignant neoplasm of right kidney, except renal pelvis (principal); C64.2 Malignant neoplasm of left kidney, except renal pelvis
CPT/HCPCS: 76770

== ENCOUNTER → 2018-08-19 10:44 | Outpatient (CLI) | payer MEDICARE, OTHER, SELFPAY ==
[2018-08-03 09:33] VITALS: BMI 28.5
[2018-08-19 11:50] LABS: Absolute Lymphocyte Count 0.67 X10^3/ul (0.83-4.51); Absolute Neutrophil Count 4.4 X10^3/uL (2.0-7.7); Basophil# 0.03 X10^3/uL; Basophil% 0.5 % (0-1); Eosinophil# 0.42 X10^3/uL; Eosinophils% 6.9 % (0-5); Hematocrit 33.5 % (40-54); Hemoglobin 10.4 g/dl (13.0-16.5); Lymphocyte # 0.67 X10^3/ul (4.0); Lymphocyte % 11.1 % (19-41); Mean Corpuscular Hgb 27.8 pg (27.0-32.0); Mean Corpuscular Volume 89.6 fL (80-94); Mean Platelet Vol. 9.9 fl (6.2-12.0); Monocyte# 0.51 X10^3/uL; Monocyte% 8.4 % (0-10); Neutrophil # 4.41 X10^3/uL (2.7-7.7); Neutrophil % 72.9 % (47-70); Platelet Count 152 K/mm3 (150-450); RBC Distribution Width CV 15.5 % (11.6-14.6); Red Blood Count 3.74 M/mm3 (4.6-6.2); White Blood Count 6.1 K/mm3 (4.4-11.0)
[2018-08-19 11:55] LABS: POSITIVE COUNT NO; POSITIVE DIFFERENTIAL NO; POSITIVE MORPHOLOGY NO
== END ==
PROVIDERS: Family Provider Family Medicine; PCP Family Medicine; Referring Provider Family Medicine; Visit Provider Family Medicine
DX: T84.59XA Infection and inflammatory reaction due to other internal joint prosthesis, initial encounter (principal); D63.8 Anemia in other chronic diseases classified elsewhere; Z96.659 Presence of unspecified artificial knee joint
CPT/HCPCS: 36415; 85025; 86140

== ENCOUNTER → 2018-09-07 13:04 | Outpatient (CLI) | payer MEDICARE, OTHER, SELFPAY ==
[2018-08-03 09:33] VITALS: BMI 28.5
[2018-09-07 14:06] LABS: Albumin, Serum 3.5 g/dL (3.2-5.0); BUN 61 mg/dL (7-18); Calcium,Total 9.2 mg/dL (8.5-10.1); Chloride 104 mmol/L (98-107); Creatinine, Serum 3.76 mg/dL (0.70-1.30); EST Glomerular Filtration Rate 17 mL/min (>60); Est Glom Filt Rate - Afr Amer 20 mL/min (>60); Phosphorus 4.2 mg/dL (2.5-4.9); Sodium Level 142 mmol/L (136-145)
== END ==
PROVIDERS: Family Provider Family Medicine; PCP Family Medicine; Referring Provider Internal Medicine Nephrology; Visit Provider Internal Medicine Nephrology
DX: I10 Essential (primary) hypertension (principal)
CPT/HCPCS: 36415; 82040; 82310; 82374; 82435; 82565; 84100; 84132; 84295; 84520

== ENCOUNTER 2018-09-28 17:40 | Inpatient (IN) | payer MEDICARE, OTHER, SELFPAY ==
[2018-08-03 09:33] VITALS: BMI 28.5
[2018-09-28] VITALS (12 sets, daily range): BP systolic 148–189; BP diastolic 91–115; PULSE 93–115; RESP 16–27; TEMP 36.8–37; O2SAT 89–96; BMI 29.2; BMI 28.4
--- NOTE | 2018-09-28 17:56 | EKG12_ITS ---
Test Reason : SOB Blood Pressure : / mmHG Vent. Rate : 094 BPM Atrial Rate : 094 BPM P-R Int : 208 ms QRS Dur : 122 ms QT Int : 398 ms P-R-T Axes : 041 020 122 degrees QTc Int : 497 ms Sinus rhythm with occasional Premature ventricular complexes Non-specific intra-ventricular conduction delay ST & T wave abnormality, consider lateral ischemia Abnormal ECG Confirmed by NAVDEEP WILLIS, ANJELICA ([id number]), editor newspaper JON STACK ([id number]) on 09/30/2018 12:51:11 PM Referred By: ANNE Confirmed By:ANJELICA SETHI MD
--- NOTE | 2018-09-28 18:01 | ED.VISSUMM ---
- ER Visit Summary Date of Service: 09/28/18 Chief Complaint: Shortness of breath, cough History of Present Illness: The patient is a 77 M who started with shortness of breath and cough. He states symptoms only started today. He has had a nonproductive dry cough. He feels short of breath. He has pain in the middle part of his back. It does not radiate into the chest. He denies any fevers. He has started with nausea and vomiting this afternoon. He took nothing for any of his symptoms at home. His tested positive for influenza yesterday. He does have a history of COPD and has chronic kidney disease with only one kidney. Physical Examination: Vital signs are reviewed. Patient not tachycardic or tachypneic. Pulse ox on room air normal. HEENT exam unremarkable. He has moist mucous memories. Heart is irregularly irregular with a 3/6 systolic murmur. Lungs are clear to auscultation bilaterally. Abdomen soft and nontender. Extremities reveal no edema. His neurologic exam is normal. Test Results: EKG is sinus rhythm with multiple PVCs. Rate of 94. Nonspecific ST and T wave changes noted. Edema consistent with CHF. Hemoglobin 10.4, sodium 133, BUN 57 creatinine 3.70. Influenza is positive. BNP 744 Emergency Department Course and Treatment: She was given some IV fluids. Chest x-ray does reveal evidence of CHF. He has no history of this in the past. He does test positive for influenza so he was given Tamiflu. I discussed with the hospitalist. He states that he is allergic to Lasix. We will have to find an alternative diuretic. He will be admitted to the hospital Treatment Plan: [] Disposition: Admit Impression: CHF, congestive heart failure This note was generated with [employer] dictation software. It may contain incorrect words, spelling, and punctuation that were not noted in review of the chart prior to signing ED Disposition - Plan for ED Patient: Referrals: Dejuan Catherine DO [Primary Care Provider] -
[2018-09-28] MEDS: Albuterol 2.5 MG/3 ML VIAL.NEB. INHALATION (18:13)
[2018-09-28 18:27] LABS: Absolute Lymphocyte Count 0.32 X10^3/ul (0.83-4.51); Absolute Neutrophil Count 6.1 X10^3/uL (2.0-7.7); Basophil# 0.02 X10^3/uL; Basophil% 0.3 % (0-1); Eosinophil# 0.03 X10^3/uL; Eosinophils% 0.4 % (0-5); Hematocrit 32.4 % (40-54); Hemoglobin 10.4 g/dl (13.0-16.5); Lymphocyte # 0.32 X10^3/ul (4.0); Lymphocyte % 4.6 % (19-41); Mean Corp Hgb Conc 32.1 g/gl (32-36); Mean Corpuscular Hgb 29.7 pg (27.0-32.0); Mean Corpuscular Volume 92.6 fL (80-94); Mean Platelet Vol. 9.5 fl (6.2-12.0); Monocyte# 0.46 X10^3/uL; Monocyte% 6.6 % (0-10); Neutrophil # 6.11 X10^3/uL (2.7-7.7); Neutrophil % 88.1 % (47-70); Platelet Count 122 K/mm3 (150-450); RBC Distribution Width CV 17.7 % (11.6-14.6); RBC Distribution Width SD 58.7 fl (35.1-43.9); White Blood Count 6.9 K/mm3 (4.4-11.0)
[2018-09-28 18:29] LABS: Differential Indicated SCAN CRITERIA MET; POSITIVE COUNT NO; POSITIVE DIFFERENTIAL YES; POSITIVE MORPHOLOGY NO
[2018-09-28 18:34] LABS: Anion Gap 8 (5-15); BUN 57 mg/dL (7-18); BUN/Creat Ratio 15.4 RATIO (10-20); Calcium,Total 8.7 mg/dL (8.5-10.1); Chloride 101 mmol/L (98-107); EST Glomerular Filtration Rate 17 mL/min (>60); Est Glom Filt Rate - Afr Amer 21 mL/min (>60); Estimated Creatinine Clearance 17.26 ml/min; Glucose 240 mg/dL (74-106); Potassium 4.3 mmol/L (3.5-5.1); Sodium Level 133 mmol/L (136-145)
--- NOTE | 2018-09-28 18:40 | RAD_ITS ---
STUDY: X-RAY CHEST REASON FOR EXAM: Male, 77 years old. Nausea and vomiting. TECHNIQUE: Frontal and lateral views of the chest. COMPARISON: July 30, 2018 FINDINGS: There is a diffuse interstitial pattern, right greater than left, slightly increased since the prior study. There is no demonstrated pleural abnormality. There is marked cardiomegaly with sternotomy wires and changes of valve replacement unaltered. Normal mediastinum and coco. Normal visualized pulmonary arteries. There is atherosclerotic calcification of the aortic arch with tortuosity. Normal visualized thoracic spine. Normal visualized ribs, clavicles, and shoulders. There is no demonstrated abnormality of the visualized soft tissue structures of the upper abdomen. RAD/Chest PA and Lateral IMPRESSION: Findings which may represent mild worsening of interstitial edema/congestive failure. No acute finding. Electronically Signed: Gunnar Clifton MD at 20:05 EDT , Service support ,
--- NOTE | 2018-09-28 18:49 | ED.RN ---
(+) INFLUENZA A RESULT RECEIVED FROM LAB. DR RODRÍGUEZ NOTIFIED.
[2018-09-28 19:12] LABS: Anisocytosis 1+; Differential Comment SCANNED; Ovalocyte RARE; Platelet Estimate SLT DEC (ADEQ)
--- NOTE | 2018-09-28 20:21 | HP.PCM_ITS ---
Problem List (1) Influenza A Status: Acute (2) Heart failure with preserved ejection fraction Status: Acute Qualifiers: Heart failure chronicity: acute on chronic Qualified Code(s): I50.33 - Acute on chronic diastolic (congestive) heart failure (3) Septic joint of left knee joint Status: Chronic (4) Septic arthritis Status: Chronic Qualifiers: Septic arthritis location: knee Laterality: right History of Present Illness Date of Admission: 09/28/18 Chief Complaint: flu-like symptoms The patient is a 77 year old M with a significant history of renal carcinoma status post right nephrectomy and now with solitary left kidney and CKD; CAD status post CABG and stents; paroxysmal A. fib; septic arthritis; diabetes mellitus; hypertension; diastolic heart failure; prosthetic aortic valve and mitral valve regurgitation who presented with 1 day history of flulike symptoms. Per patient's , patient was not acting right. Patient was dragging his feet and he was very lethargic. Associated with his symptoms is a wet cough. However he is unable to expectorate his sputum and he ends up swallowing it. Further he has nausea, vomiting and shortness of breath at rest. Although at baseline he has low temperature, his temperature at this time is 98.9 which is higher than his normal. Also his hand felt cold to touch and he had chills. Moreover, patient had left neck pain and pain in between his shoulder blades. Importantly his great grandson had flu and his also had flu. He denies paroxysmal nocturnal dyspnea. He uses 1-2 pillows nightly that has not changed. He denies any change in his weight. 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 Past Medical History Past Medical History (Chronic Problems): Chronic Problems (Last Reviewed 09/28/18 @ 21:35 by Asa Gorman MD) Lung nodules (Chronic) History of renal cell cancer (Chronic) Left renal mass (Chronic) Presence of stent in coronary artery (Chronic) PTCA of RCA intracoronary stent January 2009 (bare metal) Premature atrial contractions (Chronic) Presence of aortocoronary bypass graft (Chronic) CABG X 4, JOE to LAD, SVG-D1 sequential - PDA1 & PDA 2 Paroxysmal atrial fibrillation (Chronic) H/O aortic valve replacement (Chronic) 07/25/15 @ [facility] Premature ventricular contractions (Chronic) 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) Hyperlipidemia (Chronic) Hypertension (Chronic) Osteoarthritis of left knee (Chronic) DM2 (diabetes mellitus, type 2) (Chronic) Chronic kidney disease (Chronic) Solitary kidney (Chronic) Medical History: Medical History (Last Reviewed 09/28/18 @ 21:35 by Asa Gorman MD) Premature atrial contractions (Chronic) I49.1 Paroxysmal atrial fibrillation (Chronic) I48.0 Premature ventricular contractions (Chronic) I49.3 Encounter for adjustment or management of vascular access device (Inactive) Z45.2 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) M00.9 Septic arthritis (Chronic) M00.9 Hyperlipidemia (Chronic) E78.5 Hypertension (Chronic) I10 Osteoarthritis of left knee (Chronic) M17.12 DM2 (diabetes mellitus, type 2) (Chronic) E11.9 Bacteremia due to Enterococcus (Inactive) R78.81, B95.2 Chronic kidney disease (Chronic) N18.9 Solitary kidney (Chronic) Q60.0 VINOD (acute kidney injury) (Resolved) N17.9 Cancer of right kidney C64.1 S/P nephrectomy on January 13, 2016 at Left renal mass N28.89 S/p nephrectomy Z90.5 right Syncope and collapse R55 Atherosclerotic heart disease of [place] coronary artery without angina pectoris I25.10 CABG X 4, JOE to LAD, SVG-D1 sequential - PDA1 & PDA 07 July 2015 at [facility] in [place]; PTCA of RCA intracoronary stent January 2009 (bare metal) Nonrheumatic aortic (valve) stenosis I35.0 Allergies losartan potassium [From Cozaar] Allergy (Severe, Verified 09/28/18 18:40) Other valsartan [From Diovan HCT] Allergy (Severe, Verified 09/28/18 18:40) Other amlodipine besylate [From Norvasc] Allergy (Verified 09/28/18 18:40) Other doxazosin mesylate [From Cardura] Allergy (Verified 09/28/18 18:40) Other furosemide [From Lasix] Allergy (Verified 09/28/18 18:40) Other states causes urinary system to shut down and he can't urinate hydrochlorothiazide Allergy (Verified 09/28/18 18:40) Other metoprolol succinate [From Toprol XL] Allergy (Verified 09/28/18 18:40) Other simvastatin Allergy (Verified 09/28/18 18:40) Other atenolol Adverse Reaction (Severe, Verified 09/28/18 18:40) Potential to cause CVA? losartan [From Hyzaar] Adverse Reaction (Severe, Verified 09/28/18 18:40) Ineffective oxycodone [From OxyIR] Adverse Reaction (Severe, Verified 09/28/18 18:40) tremors SEVERE CONFUSION acetaminophen [From Vicodin] Adverse Reaction (Verified 09/28/18 18:40) Other hydrocodone [From Vicodin] Adverse Reaction (Verified 09/28/18 18:40) Other vicodin Adverse Reaction (Severe, Uncoded 09/28/18 18:40) Other SEVERE CONFUSION Hydrogenated Vegetable Oil Adverse Reaction (Uncoded 09/28/18 18:40) Upset Stomach Home Medications: Ambulatory Orders Medication Instructions Recorded diltiazem ER (XR/XT) 180 mg 180 mg PO BID #180 cap 04/20/18 capsule,extended release 24 hr, controlled isosorbide mononitrate ER 60 mg 60 mg PO DAILY #90 tab 04/20/18 tablet,extended release 24 hr labetalol 100 mg tablet 100 mg PO BID #180 tab 04/20/18 Calcitriol 0.25 mg PO DAILY 09/28/18 Docusate Sodium [Colace] 100 mg PO DAILY 09/28/18 Multivitamin with Minerals 1 tab PO DAILY 09/28/18 [Multiple Vitamin] RX: Allopurinol 100 mg PO DAILY 09/28/18 RX: Amoxicillin [Amoxil] 500 mg PO TID 09/28/18 RX: Iron Polysaccharide Complex 150 mg PO DAILYCM 09/28/18 [Ferrex 150] Surgical History: Surgical History (Last Reviewed 09/28/18 @ 21:49 by Asa Gorman MD) Presence of stent in coronary artery (Chronic) Z95.5 PTCA of RCA intracoronary stent January 2009 (bare metal) Presence of aortocoronary bypass graft (Chronic) Z95.1 CABG X 4, JOE to LAD, SVG-D1 sequential - PDA1 & PDA 2 H/O aortic valve replacement (Chronic) Z95.2 07/25/15 @ [facility] H/O hemorrhoidectomy Z98.890 History of left knee replacement Z96.652 port placement port removal 10/2017 Surgical History: cataract, coronary bypass surgery - X 3., herniorrhaphy - Umbilical., total knee arthroplasty - Left., - - Hemorrhoidectomy, aortic valve replacement (bovine), cardiac stent, right nephrectomy 01/15/2016. Psychiatric History: No pertinent psych hx Lives: Spouse/ Significant Other Smoking Status: Former smoker Alcohol: None - *Family History Maternal Family History: Family History (Last Reviewed 09/28/18 @ 21:35 by Asa Gorman MD) Father CAD (coronary artery disease) Mother Hypertension Brother Diabetes History Items: Cancer - breast Paternal Family History: Family History (Last Reviewed 09/28/18 @ 21:35 by Asa Gorman MD) Father CAD (coronary artery disease) Mother Hypertension Brother Diabetes History Items: No pertinent history Sibling Family History: Family History (Last Reviewed 09/28/18 @ 21:35 by Asa Gorman MD) Father CAD (coronary artery disease) Mother Hypertension Brother Diabetes History Items: Diabetes Review of Systems Constitutional: Reports: Anorexia, Chills, Malaise. Denies: Weight Change HEENT: Reports: Sinus Drainage - Mild. Denies: Head Aches, Sinus Congestion Cardiovascular: Denies: Chest Pain, Palpitations Respiratory: Reports: Cough, Shortness of breath at rest Gastrointestinal: Reports: Nausea, Vomiting. Denies: Abdominal Pain Genitourinary: Denies: Dysuria Musculoskeletal: Denies: Joint Pain, Joint Tenderness Skin: Denies: Rash, Wounds Neurological: Denies: Numbness, Tingling, Focal weakness Psychiatric: Denies: Anxiety, Depression, Homicidal Ideations, Suicidal Ideations Hematologic/ Lymphatic: Denies: Easy Bruising, Easy Bleeding VTE Information - Inpt Only VTE Present on Admission: No VTE Mechan Device Prophylaxis: None VTE Pharm Prophylaxis ordered?: Yes Patient Problems: Active and Suspected Problems (Last Reviewed 09/28/18 @ 21:35 by Asa Gorman MD) Influenza A (Acute) Heart failure with preserved ejection fraction (Acute) - Physical Exam General: Alert, Oriented x3, Cooperative HEENT: Atraumatic, PERRLA, EOMI, Normocephalic Neck: Supple, Trachea Midline Lungs: Rales - Bibasilar, Tachypneic Cardiovascular: Gallops, Murmur, Tachycardic Abdomen: Bowel Sounds Present, Soft, Non Tender Extremities: Capillary Refill Less than 3 Seconds, Edema - Right lateral foot Skin: No rashes, No breakdown Musculoskeletal: No Tenderness to Palpation of Joints or Extremities Neurological: Neuro grossly intact Psych/Mental Status: Normal Affect, Appropriate Vital Signs Temp Pulse Resp BP Pulse Ox 98.3 F 103 H 27 H 189/92 H 93 09/28/18 17:40 09/28/18 18:34 09/28/18 18:34 09/28/18 17:40 09/28/18 18:34 Oxygen Flow Rate (L/min) 2 Oxygen Delivery Method Nasal Cannula Weight: 92.533 kg Body Mass Index (BMI) 29.2 Finger Stick Blood Glucose 122 Microbiology Past 72 Hours 09/28/18 17:15 Influenza Types A,B Direct FA (JAYE) - Final Mucosa - Nose Influenzae A Laboratory Tests Past 24 Hrs 09/28/18 09/28/18 09/28/18 18:06 18:06 18:06 WBC 6.9 RBC 3.50 L Hgb 10.4 L Hct 32.4 L MCV 92.6 MCH 29.7 MCHC 32.1 RDW 17.7 H RDW Differential 58.7 H Plt Count 122 L MPV 9.5 Immature Gran % (Auto) 0.000 Neut % (Auto) 88.1 H Lymph % (Auto) 4.6 L [place] % (Auto) 6.6 Eos % (Auto) 0.4 Baso % (Auto) 0.3 Absolute Neuts (auto) 6.1 Absolute Lymphs (auto) 0.32 L Total Counted Not Reportable Differential Comment SCANNED Platelet Estimate SLT DEC Anisocytosis 1+ Ovalocytes RARE Sodium 133 L Potassium 4.3 Chloride 101 Carbon Dioxide 24.0 Anion Gap 8 BUN 57 H Creatinine 3.70 H Estim Creat Clear Calc 17.26 Est GFR (MDRD) Af Amer 21 L Est GFR (MDRD) Non-Af 17 L BUN/Creatinine Ratio 15.4 Glucose 240 H Calcium 8.7 Troponin I < 0.015 B-Natriuretic Peptide 744.0 H Assessment/Plan All Active Problems (Last Reviewed 09/28/18 @ 21:35 by Asa Gorman MD) Influenza A (Acute) Heart failure with preserved ejection fraction (Acute) Cancer of right kidney (Resolved) Pleural cavity effusion (Resolved) VINOD (acute kidney injury) (Resolved) The patient is a 77 year old M with a significant history of renal carcinoma status post right nephrectomy and now with solitary kidney and CKD; CAD status post CABG and stents; paroxysmal A. fib; septic arthritis; diabetes mellitus; hypertension; diastolic heart failure; prosthetic aortic valve and mitral valve regurgitation who presented with 1 day history of flulike symptoms and found to be positive for influenza A and also to with radiographic evidence of lung infiltrates and with elevated BNP concerning for acute exacerbation of his diastolic heart failure. Influenza A infection Patient with flulike symptoms and a positive influenza A test Patient received Tamiflu 75 mg at emergency department. Because of his low creatinine clearance will de-escalate to 30 mg daily Mucinex ordered. Patient has multiple allergies. He reported that Tylenol gives him a headache. He is allergic to oxycodone and OxyContin as well as Vicodin. Droplet precautions. Acute exacerbation of heart failure with preserved ejection fraction. Patient with elevated BNP; hyponatremia; and radiographic evidence of mild worsening of interstitial edema/congestive heart failure. Chest x-ray was independently reviewed. I agree with radiologist interpretation. Etiology is likely from viral infection. Review of old records shows that echocardiogram on 07/15/2018 showed an ejection fraction of 53% but if a grade 3 systolic dysfunction. Also his left atrium was severely enlarged. His right atrium was mildly enlarged. Patient had moderate diffuse mitral valve calcification and severe mitral valve annular calcification and moderate mitral valve insufficiency. Also he had moderate tricuspid valve insufficiency and his pulmonary systolic blood pressure was 59. Patient is allergic to Lasix and hydrochlorothiazide. Discussed the emergency department doctor who gave patient a one-time dose of metolazone. Strict intake and output. Consider further metaxalone. Daily weights Hypertension urgency His highest systolic blood pressure on presentation was 189. His hiatal blood pressure on presentation was 106 Imdur; Cardizem and labetalol continued. We will add as needed labetalol IV. Because of persistent hypertension with multiple labetalol IV administration his scheduled home metoprolol dose has been escalated. Trend blood pressure and adjust blood pressure medication as necessary Diabetes mellitus: On presentation his blood glucose was not within goal. We will put patient on Accu-Chek q. before meals at bedtime with correction scale short acting insulin. Paroxysmal A. fib Cardizem; and labetalol continued History of septic arthritis in left knee. Patient reports that he is on on lifetime amoxicillin. Amoxicillin continued. CKD stage IV Stable Gout Allopurinol continued. Chronic anemia Iron supplementation continued. DVT prophylaxis Subcutaneous heparin. Code Visit Inpatient E&M: 86345 Init Hosp L3
[2018-09-28] MEDS: Oseltamivir Phosphate 75 MG Capsule PO (20:41)
[2018-09-28] MEDS: Metolazone 2.5 MG Tablet PO (20:44)
[2018-09-28] MEDS: Insulin Lispro 100 UNIT/ML INSULN.PEN SQ (22:11)
[2018-09-28] MEDS: Heparin Injection (Vial) 5,000 UNIT/ML VIAL 5000 UNIT SC (22:12)
[2018-09-28] MEDS: guaiFENesin 1,200 MG Tablet 1200 MG PO (22:12)
[2018-09-28] MEDS: Labetalol 100 MG Tablet PO (22:12)
[2018-09-28] MEDS: dilTIAZem CD 180 MG Capsule PO (22:13)
[2018-09-28] MEDS: AMOXICILLIN 500 MG CAPSULE PO (22:13)
[2018-09-28 22:31] LABS: Bedside Glucose 187 mg/dL (70-110)
[2018-09-29] VITALS (29 sets, daily range): BP systolic 133–187; BP diastolic 71–108; PULSE 61–109; RESP 14–28; TEMP 36.6–37.1; O2SAT 87–98
[2018-09-29] MEDS: 0.9% NaCl Peripheral Flush Adult/Peds IV ×3 (00:34→18:01)
--- NOTE | 2018-09-29 00:58 | NURSING ---
Respiratory Notified, and will come see the pt.
[2018-09-29 06:38] LABS: Anion Gap 12 (5-15); BUN 57 mg/dL (7-18); BUN/Creat Ratio 16.2 RATIO (10-20); Calcium,Total 8.5 mg/dL (8.5-10.1); Chloride 101 mmol/L (98-107); Creatinine, Serum 3.52 mg/dL (0.70-1.30); EST Glomerular Filtration Rate 18 mL/min (>60); Est Glom Filt Rate - Afr Amer 22 mL/min (>60); Estimated Creatinine Clearance 18.15 ml/min; Glucose 187 mg/dL (74-106); Potassium 4.2 mmol/L (3.5-5.1); Sodium Level 134 mmol/L (136-145)
[2018-09-29 07:10] LABS: Bedside Glucose 137 mg/dL (70-110)
[2018-09-29] MEDS: Iron Polysaccharide Complex 150 MG CAPSULE PO (08:25)
[2018-09-29] MEDS: Heparin Injection (Vial) 5,000 UNIT/ML VIAL 5000 UNIT SC ×2 (08:25→21:34)
[2018-09-29] MEDS: Multivitamins,Ther W-Minerals Tablet 1 TABLET PO (08:25)
[2018-09-29] MEDS: AMOXICILLIN 500 MG CAPSULE PO ×2 (08:25→21:34)
[2018-09-29] MEDS: Docusate Sodium 100 MG Capsule PO (08:25)
[2018-09-29] MEDS: Calcitriol 0.25 MCG Capsule PO (08:25)
[2018-09-29] MEDS: guaiFENesin 1,200 MG Tablet 1200 MG PO ×2 (08:25→21:34)
[2018-09-29] MEDS: dilTIAZem CD 180 MG Capsule PO ×2 (08:25→21:34)
[2018-09-29] MEDS: Allopurinol 100 MG Tablet PO (08:25)
[2018-09-29] MEDS: Isosorbide Mononitrate 60 MG Tablet PO (08:25)
[2018-09-29] MEDS: Labetalol 200 MG Tablet PO ×2 (08:28→21:34)
--- NOTE | 2018-09-29 10:15 | CASEMGMT ---
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 Does [employer]. PT/OT elizabeth pending. Original Note: RN CM [employer]IN[employer] CM to room to meet with patient for initial transition planning/care coordination assessment. KAREN CHAVEZ introduced self and role at [facility]. Pt voices understanding and consents to assessment at this time. Pt sitting up in recliner chair in no distress at this time. O2 in place via N/C. Pt is A/O at this time and answers all questions appropriately. Care providers, pharmacy, and demographics verified/updated at this time. PCP: Dorene Specialists: Ajit Frye Preferred Pharmacy: [facility] [employer]. Prescription Benefit: Yes Living Will/HPOA: Has both LW and HCPOA, who is his , Pia. States thought AD were on file, but made aware they are not. States he will ask his if she can bring in. LNOK: , 3 adult children. and children supportive. Living Arrangements: Lives with in 2-story home. Bedroom and full bath on 2nd floor. 1/2 bath on 1st floor. Denies difficulty with stairs. Independent @ home. 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 also manages medications and doctor appts. Transportation: Pt states drives self and states no transportation concerns at this time. also drives DME: States has the following DME available but does not use. Cane, walker, nebulizer that was his aunts. Uses shower chair on occasion and has glucometer and checks his BS daily. Diet controlled/not on insulin. Does not have Home O2 or BIPAP/CPAP. Pt states no need for further DME at this time. HHC/SNF: Hx of HHC agency in the past after open heart surgery but does not remember name. No hx SNF. Denies need for HHC. Pt wishes to return home and states has no concerns with going home at time of discharge. CM to follow for home oxygen needs and any further discharge planning/needs. May need home qualification testing prior to d/c. Pt voices no further concerns/needs at this time. Advised pt to ask for CM if any further questions/concerns/needs arise. Voices understanding. PLAN: Home with spousal support. Follow for any Home O2 needs. Liliam VALENZUELAN RN CM
[2018-09-29 11:05] LABS: Bedside Glucose 220 mg/dL (70-110)
[2018-09-29] MEDS: Insulin Lispro 100 UNIT/ML INSULN.PEN SQ (11:12)
--- NOTE | 2018-09-29 15:14 | PCM.PN.HOSP ---
Patient Problems: Active and Suspected Problems (Last Reviewed 09/28/18 @ 21:35 by Asa Gorman MD) Influenza A (Acute) Heart failure with preserved ejection fraction (Acute) Subjective: Patient notes feeling improved since initial presentation. Seated upright in the chair, talkative, no evidence of respiratory distress. Breathing easier and less coughing but still [id number] sputum. He notes decent urination since metolazone administration in the ED. On evaluation patient has no market lower extremity edema. Patient denies fevers, chills, nausea, emesis, abdominal pain, chest pain or worsened or recurrent severe dyspnea. Objective: Physical Examination: General: awake, alert, oriented x 3 and cooperative, seated upright in a tight chair, fatigued appearing but notes feeling improved. Skin: normal color, turgor, no icterus, cyanosis, notable ecchymoses, stage II extremities. HEENT: AT/NC, EOMI, PERRLA, improved less dry MMM. Lungs: Diminished breath sounds throughout, greater bilateral bases however left great than right, minimal rales, no wheezing or rhonchi. Heart: Regular rate and rhythm; no gallop, rub audible, SM. Abdomen: soft, NTTP, ND, normal BS. Extremities: no cyanosis, clubbing, or edema. Neurological: patient awake, alert, oriented x 3; cognitive function intact; pupils equally reactive to light and accomodation; cranial nerves II-XII grossly normal, moving all 4 extremities, no focal deficits, strength Artley to severely globally decreased secondary to acute presentation. Psychiatric: affect appears improved, normal, no acute evidence of depressive or anxiety feelings. Vitals/I&O's: Vital Signs Temp Pulse Resp BP Pulse Ox 98.3 F 76 20 H 158/71 H 94 09/29/18 10:02 09/29/18 15:00 09/29/18 10:02 09/29/18 10:02 09/29/18 11:39 Oxygen Flow Rate (L/min) 3 Oxygen Delivery Method Nasal Cannula Weight: 198 lb 3.129 oz Body Mass Index (BMI) 28.4 Finger Stick Blood Glucose 122 Intake and Output for Last 24 Hours 09/27/18 09/28/18 09/29/18 23:59 23:59 23:59 Intake Total 740 / 740 Output Total 800 / 800 Balance -60 / -60 Microbiology Past 72 Hours 09/28/18 17:15 Mucosa - Nose Influenza Types A,B Direct FA (JAYE) - Final Influenzae A Laboratory Results 09/28/18 18:06: WBC 6.9, RBC 3.50 L, Hgb 10.4 L, Hct 32.4 L, MCV 92.6, MCH 29.7, MCHC 32.1, RDW 17.7 H, RDW Differential 58.7 H, Plt Count 122 L, MPV 9.5, Immature Gran % (Auto) 0.000, Neut % (Auto) 88.1 H, Lymph % (Auto) 4.6 L, [place] % (Auto) 6.6, Eos % (Auto) 0.4, Baso % (Auto) 0.3, Absolute Neuts (auto) 6.1, Absolute Lymphs (auto) 0.32 L, Total Counted Not Reportable, Differential Comment SCANNED, Platelet Estimate SLT DEC, Anisocytosis 1+, Ovalocytes RARE 09/28/18 18:06: Sodium 133 L, Potassium 4.3, Chloride 101, Carbon Dioxide 24.0, Anion Gap 8, BUN 57 H, Creatinine 3.70 H, Estim Creat Clear Calc 17.26, Est GFR (MDRD) Af Amer 21 L, Est GFR (MDRD) Non-Af 17 L, BUN/Creatinine Ratio 15.4, Glucose 240 H, Calcium 8.7, Troponin I < 0.015 09/28/18 18:06: B-Natriuretic Peptide 744.0 H 09/28/18 18:06: TSH 2.90 09/28/18 22:09: POC Glucose 187 H 09/29/18 05:56: Sodium 134 L, Potassium 4.2, Chloride 101, Carbon Dioxide 21.0, Anion Gap 12, BUN 57 H, Creatinine 3.52 H, Estim Creat Clear Calc 18.15, Est GFR (MDRD) Af Amer 22 L, Est GFR (MDRD) Non-Af 18 L, BUN/Creatinine Ratio 16.2, Glucose 187 H, Calcium 8.5 09/29/18 06:56: POC Glucose 137 H 09/29/18 10:57: POC Glucose 220 H Current Medications Allopurinol (Zyloprim) 100 mg PO DAILYCM [facility] Last Admin: 09/29/18 08:25 Dose: 100 mg Amoxicillin (Amoxil) 500 mg PO Q12 [facility] Last Admin: 09/29/18 08:25 Dose: 500 mg Calcitriol (Rocaltrol) 0.25 mcg PO DAILY [facility] Last Admin: 09/29/18 08:25 Dose: 0.25 mcg Dextrose (D50w Syringe) 0 gm IV X1 PRN; Protocol PRN Reason: Hypoglycemia Diltiazem HCl (Cardizem Cd) 180 mg PO BID [facility] Last Admin: 09/29/18 08:25 Dose: 180 mg Docusate Sodium (Colace) 100 mg PO DAILY [facility] Last Admin: 09/29/18 08:25 Dose: 100 mg Glucagon () 1 mg IM .X1 PRN PRN Reason: Hypoglycemia Guaifenesin (Mucinex) 1,200 mg PO BID [facility] Last Admin: 09/29/18 08:25 Dose: 1,200 mg Heparin Sodium (Porcine) (Heparin Na) 5,000 unit SC Q12 [facility] Last Admin: 09/29/18 08:25 Dose: 5,000 unit Sodium Chloride () 500 mls @ 999 mls/hr IV .Q31M ONE Last Admin: 09/28/18 18:31 Dose: 999 mls/hr Sodium Chloride () 250 mls @ 15 mls/hr IV .[id number] PRN PRN Reason: SALINE FLUSH Insulin Human Lispro (Humalog Kwikpen (Bkc)) 0 unit SQ ACHS [facility]; Protocol Last Admin: 09/29/18 11:12 Dose: 3 u Isosorbide Mononitrate (Imdur) 60 mg PO DAILY [facility] Last Admin: 09/29/18 08:25 Dose: 60 mg Labetalol HCl (Trandate) 10 mg IV Q4H PRN PRN PRN Reason: SBP > 160 Last Admin: 09/29/18 06:17 Dose: 10 mg Labetalol HCl (Trandate) 200 mg PO BID [facility] Last Admin: 09/29/18 08:28 Dose: 200 mg Magnesium Hydroxide (Milk Of Magnesia) 30 ml PO DAILY PRN PRN Reason: Constipation Multivitamins/Minerals (Multivitamin With Minerals) [facility] Last Admin: 09/29/18 08:25 Dose: 1 tablet Ondansetron HCl (Zofran) 4 mg IV Q8H PRN PRN PRN Reason: NAUSEA Oseltamivir Phosphate (Tamiflu) 30 mg PO DAILY@2200 KRANTHI Stop: 10/02/18 22:01 Polysaccharide Iron Complex (Ferrex 150) 150 mg PO DAILYCM KRANTHI Last Admin: 09/29/18 08:25 Dose: 150 mg Sodium Chloride () 5 - 15 ml IV UD PRN PRN Reason: SALINE FLUSH Last Admin: 09/29/18 02:40 Dose: 10 ml Medical Necessity - Tobacco Use Smoking Status: Former smoker Assessment/Plan All Active Problems (Last Reviewed 09/28/18 @ 21:35 by Asa Gorman MD) Influenza A (Acute) Heart failure with preserved ejection fraction (Acute) Cancer of right kidney (Resolved) Pleural cavity effusion (Resolved) VINOD (acute kidney injury) (Resolved) The patient is a 77 y/o M w/ PMHx: CAD s/p CABG x 3, Valvular Heart Disease s/p AVR w/ MVR, Diastolic CHF, HTN, HLD, CKD stage IV w/ Solitary Kidney, AOCD/Fe deficiency anemia, Diabetes mellitus type II, PAF, Hx Left knee periprosthetic infection w/ E. 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 (1) General Malaise, Cough, Fever, General Debility secondary to Influenza A Viral Syndrome: CXR in the ED w/ congestion, mild. Admission CBC w/ WBC WBC 6.9, hemoglobin 10.4, platelet 122 with mild left shift. Influenza A positive. Maintained on Tamiflu. Admitted to PCU given concern for possible diastolic CHF exacerbation, maintain on oxygen with wean as tolerated, continue ATC duonebs, PRN albuterol, HOB, IS parameters. (2) ? Diastolic CHF Exacerbation, Lower Suspicion: CXR w/ ? congestion but examination well appearing, no orthopnea, no marked BL LE edema, more concerned CXR alterations secondary to #1, will defer any additional metalozone regimen, maintain on labetalol, statin allergy, SAKINA inhibitor allergy. Patient extremely sensitive medications and family requesting Dr. Frye evaluation. (3) CKD stage IV w/ Solitary kidney w/ Hx renal cell carcinoma s/p R nephrectomy w/ Incidental left renal Nodule: Admission BUN/Cr 57/3.70, hydrated, repeat 09/29/18 BUN/Cr 57/3.52, baseline appears 3.3-3.6, stable, continue to trend. (4) Valvular Heart Disease: History of aortic valve stenosis status post aortic valve replacement with bioprosthetic material. (5) Diabetes mellitus type II w/ Neuropathy: From currently is not on regimen, ADA diet, Accu checks with insulin sliding scale. (6) Chronic AOCD/Fe deficiency anemia: Admission Hgb 10.4, maintain on home Fe supplementation. (7) CAD: s/p CABG, maintain on home regimen BB, not on statin secondary to allergy, will add baby aspirin although possible prior history of thrombocytopenia, SAKINA inhibitor and ARB allergy. (8) Hypertension: Continue home regimen including labetaolol, Cardizem, isosorbide, PRN hydralazine. (9) Hyperlipidemia: Statin allergy. (10) Hx Left knee periprosthetic infection: Patient w/ E. 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 (11) DVT Prophylaxis: SCDs, heparin. Code Visit Inpatient E&M: 72423 Subs Hosp L2
--- NOTE | 2018-09-29 15:34 | PN_ITS ---
Patient Problems: Active and Suspected Problems (Last Reviewed 09/28/18 @ 21:35 by Asa Gorman MD) Influenza A (Acute) Heart failure with preserved ejection fraction (Acute) Subjective: Patient notes feeling improved since initial presentation. Seated upright in the chair, talkative, no evidence of respiratory distress. Breathing easier and less coughing but still [id number] sputum. He notes decent urination since metolazone administration in the ED. On evaluation patient has no market lower extremity edema. Patient denies fevers, chills, nausea, emesis, abdominal pain, chest pain or worsened or recurrent severe dyspnea. Objective: Physical Examination: General: awake, alert, oriented x 3 and cooperative, seated upright in a tight chair, fatigued appearing but notes feeling improved. Skin: normal color, turgor, no icterus, cyanosis, notable ecchymoses, stage II extremities. HEENT: AT/NC, EOMI, PERRLA, improved less dry MMM. Lungs: Diminished breath sounds throughout, greater bilateral bases however left great than right, minimal rales, no wheezing or rhonchi. Heart: Regular rate and rhythm; no gallop, rub audible, SM. Abdomen: soft, NTTP, ND, normal BS. Extremities: no cyanosis, clubbing, or edema. Neurological: patient awake, alert, oriented x 3; cognitive function intact; pupils equally reactive to light and accomodation; cranial nerves II-XII grossly normal, moving all 4 extremities, no focal deficits, strength Artley to severely globally decreased secondary to acute presentation. Psychiatric: affect appears improved, normal, no acute evidence of depressive or anxiety feelings. Vitals/I&O's: Vital Signs Temp Pulse Resp BP Pulse Ox 98.3 F 76 20 H 158/71 H 94 09/29/18 10:02 09/29/18 15:00 09/29/18 10:02 09/29/18 10:02 09/29/18 11:39 Oxygen Flow Rate (L/min) 3 Oxygen Delivery Method Nasal Cannula Weight: 198 lb 3.129 oz Body Mass Index (BMI) 28.4 Finger Stick Blood Glucose 122 Intake and Output for Last 24 Hours 09/27/18 09/28/18 09/29/18 23:59 23:59 23:59 Intake Total 740 / 740 Output Total 800 / 800 Balance -60 / -60 Microbiology Past 72 Hours 09/28/18 17:15 Mucosa - Nose Influenza Types A,B Direct FA (JAYE) - Final Influenzae A Laboratory Results 09/28/18 18:06: WBC 6.9, RBC 3.50 L, Hgb 10.4 L, Hct 32.4 L, MCV 92.6, MCH 29.7, MCHC 32.1, RDW 17.7 H, RDW Differential 58.7 H, Plt Count 122 L, MPV 9.5, Immature Gran % (Auto) 0.000, Neut % (Auto) 88.1 H, Lymph % (Auto) 4.6 L, [place] % (Auto) 6.6, Eos % (Auto) 0.4, Baso % (Auto) 0.3, Absolute Neuts (auto) 6.1, Absolute Lymphs (auto) 0.32 L, Total Counted Not Reportable, Differential Comment SCANNED, Platelet Estimate SLT DEC, Anisocytosis 1+, Ovalocytes RARE 09/28/18 18:06: Sodium 133 L, Potassium 4.3, Chloride 101, Carbon Dioxide 24.0, Anion Gap 8, BUN 57 H, Creatinine 3.70 H, Estim Creat Clear Calc 17.26, Est GFR (MDRD) Af Amer 21 L, Est GFR (MDRD) Non-Af 17 L, BUN/Creatinine Ratio 15.4, Glucose 240 H, Calcium 8.7, Troponin I < 0.015 09/28/18 18:06: B-Natriuretic Peptide 744.0 H 09/28/18 18:06: TSH 2.90 09/28/18 22:09: POC Glucose 187 H 09/29/18 05:56: Sodium 134 L, Potassium 4.2, Chloride 101, Carbon Dioxide 21.0, Anion Gap 12, BUN 57 H, Creatinine 3.52 H, Estim Creat Clear Calc 18.15, Est GFR (MDRD) Af Amer 22 L, Est GFR (MDRD) Non-Af 18 L, BUN/Creatinine Ratio 16.2, Glucose 187 H, Calcium 8.5 09/29/18 06:56: POC Glucose 137 H 09/29/18 10:57: POC Glucose 220 H Current Medications Allopurinol (Zyloprim) 100 mg PO DAILYCM [facility] Last Admin: 09/29/18 08:25 Dose: 100 mg Amoxicillin (Amoxil) 500 mg PO Q12 [facility] Last Admin: 09/29/18 08:25 Dose: 500 mg Calcitriol (Rocaltrol) 0.25 mcg PO DAILY [facility] Last Admin: 09/29/18 08:25 Dose: 0.25 mcg Dextrose (D50w Syringe) 0 gm IV X1 PRN; Protocol PRN Reason: Hypoglycemia Diltiazem HCl (Cardizem Cd) 180 mg PO BID [facility] Last Admin: 09/29/18 08:25 Dose: 180 mg Docusate Sodium (Colace) 100 mg PO DAILY [facility] Last Admin: 09/29/18 08:25 Dose: 100 mg Glucagon () 1 mg IM .X1 PRN PRN Reason: Hypoglycemia Guaifenesin (Mucinex) 1,200 mg PO BID [facility] Last Admin: 09/29/18 08:25 Dose: 1,200 mg Heparin Sodium (Porcine) (Heparin Na) 5,000 unit SC Q12 [facility] Last Admin: 09/29/18 08:25 Dose: 5,000 unit Sodium Chloride () 500 mls @ 999 mls/hr IV .Q31M ONE Last Admin: 09/28/18 18:31 Dose: 999 mls/hr Sodium Chloride () 250 mls @ 15 mls/hr IV .[id number] PRN PRN Reason: SALINE FLUSH Insulin Human Lispro (Humalog Kwikpen (Bkc)) 0 unit SQ ACHS [facility]; Protocol Last Admin: 09/29/18 11:12 Dose: 3 u Isosorbide Mononitrate (Imdur) 60 mg PO DAILY [facility] Last Admin: 09/29/18 08:25 Dose: 60 mg Labetalol HCl (Trandate) 10 mg IV Q4H PRN PRN PRN Reason: SBP > 160 Last Admin: 09/29/18 06:17 Dose: 10 mg Labetalol HCl (Trandate) 200 mg PO BID [facility] Last Admin: 09/29/18 08:28 Dose: 200 mg Magnesium Hydroxide (Milk Of Magnesia) 30 ml PO DAILY PRN PRN Reason: Constipation Multivitamins/Minerals ([facility]erals) [facility] Last Admin: 09/29/18 08:25 Dose: 1 tablet Ondansetron HCl (Zofran) 4 mg IV Q8H PRN PRN PRN Reason: NAUSEA Oseltamivir Phosphate (Tamiflu) 30 mg PO DAILY@2200 [facility] Stop: 10/02/18 22:01 Polysaccharide Iron Complex (Ferrex 150) 150 mg PO DAILYCM KRANTHI Last Admin: 09/29/18 08:25 Dose: 150 mg Sodium Chloride () 5 - 15 ml IV UD PRN PRN Reason: SALINE FLUSH Last Admin: 09/29/18 02:40 Dose: 10 ml Medical Necessity - Tobacco Use Smoking Status: Former smoker Assessment/Plan All Active Problems (Last Reviewed 09/28/18 @ 21:35 by Asa Gorman MD) Influenza A (Acute) Heart failure with preserved ejection fraction (Acute) Cancer of right kidney (Resolved) Pleural cavity effusion (Resolved) VINOD (acute kidney injury) (Resolved) The patient is a 77 y/o M w/ PMHx: CAD s/p CABG x 3, Valvular Heart Disease s/p AVR w/ MVR, Diastolic CHF, HTN, HLD, CKD stage IV w/ Solitary Kidney, AOCD/Fe deficiency anemia, Diabetes mellitus type II, PAF, Hx Left knee periprosthetic infection w/ E. 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 (1) General Malaise, Cough, Fever, General Debility secondary to Influenza A Viral Syndrome: CXR in the ED w/ congestion, mild. Admission CBC w/ WBC WBC 6.9, hemoglobin 10.4, platelet 122 with mild left shift. Influenza A positive. Maintained on Tamiflu. Admitted to PCU given concern for possible diastolic CHF exacerbation, maintain on oxygen with wean as tolerated, continue ATC duonebs, PRN albuterol, HOB, IS parameters. (2) ? Diastolic CHF Exacerbation, Lower Suspicion: CXR w/ ? congestion but examination well appearing, no orthopnea, no marked BL LE edema, more concerned CXR alterations secondary to #1, will defer any additional metalozone regimen, maintain on labetalol, statin allergy, SAKINA inhibitor allergy. Patient extremely sensitive medications and family requesting Dr. Frye evaluation. (3) CKD stage IV w/ Solitary kidney w/ Hx renal cell carcinoma s/p R nephrectomy w/ Incidental left renal Nodule: Admission BUN/Cr 57/3.70, hydrated, repeat 09/29/18 BUN/Cr 57/3.52, baseline appears 3.3-3.6, stable, continue to trend. (4) Valvular Heart Disease: History of aortic valve stenosis status post aortic valve replacement with bioprosthetic material. (5) Diabetes mellitus type II w/ Neuropathy: From currently is not on regimen, ADA diet, Accu checks with insulin sliding scale. (6) Chronic AOCD/Fe deficiency anemia: Admission Hgb 10.4, maintain on home Fe supplementation. (7) CAD: s/p CABG, maintain on home regimen BB, not on statin secondary to allergy, will add baby aspirin although possible prior history of thrombocytopenia, SAKINA inhibitor and ARB allergy. (8) Hypertension: Continue home regimen including labetaolol, Cardizem, isosorbide, PRN hydralazine. (9) Hyperlipidemia: Statin allergy. (10) Hx Left knee periprosthetic infection: Patient w/ E. 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 (11) DVT Prophylaxis: SCDs, heparin. Code Visit Inpatient E&M: [id number] Subs Hosp L2
[2018-09-29 16:21] LABS: Bedside Glucose 141 mg/dL (70-110)
--- NOTE | 2018-09-29 17:18 | CHAPLAIN ---
Type of Pastoral Visit _x__ Initial Visit ___ Follow-up Visit ___ On-call Visit ___ General Patient Visit ___ Spiritual Assessment ___ Family Conference ___ Bereavement ___ Rapid Response ___ Code Blue ___ Other (describe below) Pastoral Care Referral From _x__ Patient _x__ Family ___ Nurse ___ Physician ___ Elementary School Registrar ___ Wire Mill Operator ___ Other (describe below) Sacrament/Intervention _x__ Active listening ___ Anointing ___ Quaker ___ Bereavement ___ Communion _x__ Tasha exploration ___ _x__ Life review _x__ Prayer ___ Reconciliation ___ Sacrament of Sick _x__ Supportive presence ___ Wedding ___ Other (describe below) Pastoral Comments patient is a talker and likes to engage in methodist topics
--- NOTE | 2018-09-29 17:27 | PCM.CONS.C ---
Reason for Consult Date of Consultation: 09/29/18 Reason for Consultation: Shortness of breath History of Present Illness: [AMELIE ERICKSON, is a 77 M who presented to the emergency room with lethargy and mild shortness of breath. His says that she had been unwell for a few days and then he started getting unwell. He really did not run a fever and he has had his usual 1-2 pillow orthopnea he has not had any pedal edema or paroxysmal nocturnal dyspnea but he had a cough. He was evaluated in the emergency room and was noted to have an elevated natruretic peptide as well as a chest x-ray which appeared to demonstrate evidence of congestive heart failure. He was admitted for further evaluation and management. He is a gentleman with a history of coronary artery disease status post carotid bypass surgery and aortic valve replacement with a Yue-House bioprosthetic valve. He was admitted to the hospital as you know last year with septicemia and underwent a TIM which did not demonstrate any evidence of endocarditis despite positive blood cultures. He also underwent a repeat TIM which once again did not demonstrate any evidence of endocarditis. It appeared that he had septicemia emanating from his knee. He has had no chest pain or shortness breath or paroxysmal nocturnal dyspnea pedal edema no neck arm or jaw discomfort suggest angina no dizziness no diaphoresis no near syncope or syncope. As you know he also has a history of renal cell carcinoma and is status post nephrectomy he tells me that a spot has been seen on 1 of his lungs and then also his remaining kidney. I referred him to see the oncologist and it appears that those lesions are stable and not active following a PET scan. He is due to have a follow-up of those. He has not had any dizziness or diaphoresis. His blood pressure he says is under excellent control. His physical exam today demonstrates clear lung quesada regular rate and rhythm a soft 2/6 systolic murmur noted left sternal border and no pedal edema. ] Past Medical History Allergies/Adverse Reactions: Allergies losartan potassium [From Cozaar] Allergy (Severe, Verified 09/28/18 18:40) Other valsartan [From Diovan HCT] Allergy (Severe, Verified 09/28/18 18:40) Other amlodipine besylate [From Norvasc] Allergy (Verified 09/28/18 18:40) Other doxazosin mesylate [From Cardura] Allergy (Verified 09/28/18 18:40) Other furosemide [From Lasix] Allergy (Verified 09/28/18 18:40) Other states causes urinary system to shut down and he can't urinate hydrochlorothiazide Allergy (Verified 09/28/18 18:40) Other metoprolol succinate [From Toprol XL] Allergy (Verified 09/28/18 18:40) Other simvastatin Allergy (Verified 09/28/18 18:40) Other atenolol Adverse Reaction (Severe, Verified 09/28/18 18:40) Potential to cause CVA? losartan [From Hyzaar] Adverse Reaction (Severe, Verified 09/28/18 18:40) Ineffective oxycodone [From OxyIR] Adverse Reaction (Severe, Verified 09/28/18 18:40) tremors SEVERE CONFUSION acetaminophen [From Vicodin] Adverse Reaction (Verified 09/28/18 18:40) Other hydrocodone [From Vicodin] Adverse Reaction (Verified 09/28/18 18:40) Other vicodin Adverse Reaction (Severe, Uncoded 09/28/18 18:40) Other SEVERE CONFUSION Hydrogenated Vegetable Oil Adverse Reaction (Uncoded 09/28/18 18:40) Upset Stomach Home Medications: Ambulatory Orders Medication Instructions Recorded diltiazem ER (XR/XT) 180 mg 180 mg PO BID #180 cap 04/20/18 capsule,extended release 24 hr, controlled isosorbide mononitrate ER 60 mg 60 mg PO DAILY #90 tab 04/20/18 tablet,extended release 24 hr labetalol 100 mg tablet 100 mg PO BID #180 tab 04/20/18 Allopurinol 100 mg PO DAILY 09/28/18 Amoxicillin [Amoxil] 500 mg PO TID 09/28/18 Calcitriol 0.25 mg PO DAILY 09/28/18 Docusate Sodium [Colace] 100 mg PO DAILY 09/28/18 Iron Polysaccharide Complex 150 mg PO DAILYCM 09/28/18 [Ferrex 150] Multivitamin with Minerals 1 tab PO DAILY 09/28/18 [Multiple Vitamin] Past Medical History (Chronic Problems): Chronic Problems (Last Reviewed 09/28/18 @ 21:35 by Asa Gorman MD) Lung nodules (Chronic) History of renal cell cancer (Chronic) Left renal mass (Chronic) Presence of stent in coronary artery (Chronic) PTCA of RCA intracoronary stent January 2009 (bare metal) Premature atrial contractions (Chronic) Presence of aortocoronary bypass graft (Chronic) CABG X 4, JOE to LAD, SVG-D1 sequential - PDA1 & PDA 2 Paroxysmal atrial fibrillation (Chronic) H/O aortic valve replacement (Chronic) 07/25/15 @ [facility] Premature ventricular contractions (Chronic) 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) Hyperlipidemia (Chronic) Hypertension (Chronic) Osteoarthritis of left knee (Chronic) DM2 (diabetes mellitus, type 2) (Chronic) Chronic kidney disease (Chronic) Solitary kidney (Chronic) Surgical History: cataract, coronary bypass surgery - X 3., herniorrhaphy - Umbilical., total knee arthroplasty - Left., - - Hemorrhoidectomy, aortic valve replacement (bovine), cardiac stent, right nephrectomy 01/15/2016. Psychiatric History: No pertinent psych hx - *Family History Sibling Family History: Family History (Last Reviewed 09/28/18 @ 21:35 by Asa Gorman MD) Father CAD (coronary artery disease) Mother Hypertension Brother Diabetes History Items: Diabetes Paternal Family History: Family History (Last Reviewed 09/28/18 @ 21:35 by Asa Gorman MD) Father CAD (coronary artery disease) Mother Hypertension Brother Diabetes History Items: No pertinent history Maternal Family History: Family History (Last Reviewed 09/28/18 @ 21:35 by Asa Gorman MD) Father CAD (coronary artery disease) Mother Hypertension Brother Diabetes History Items: Cancer - breast Lives: Spouse/ Significant Other Smoking Status: Former smoker Alcohol: None Drugs: None Review of Systems - Review of Systems General: Reports: Fatigue, Malaise. Denies: Fever, Night Sweats HEENT: Denies: Vision Change Cardiovascular: Reports: Shortness of Breath, Shortness of Breath with Exertion. Denies: Chest Discomfort, Orthopnea, PND, Peripheral Edema, Palpitations, Lightheadedness, Dizziness, Near Syncope, Syncope Respiratory: Denies: Cough, Sputum Production, Hemoptysis Gastrointestinal: Denies: Hematemesis, Hematochezia, Melena Genitourinary: Denies: Dysuria, Hematuria Muscoloskeletal: Denies: Myalgias Skin: Denies: Rash Neurological: Denies: Dizziness Psychiatric: Denies: Anxiety Endocrine: Denies: Unexplained Weight Loss Hematologic/ Lymphatic: Reports: Anemia Subjectve: Pleasant gentleman in no apparent distress Objective: Vital Signs Temp Pulse Resp BP Pulse Ox 98.4 F 78 14 139/79 H 96 09/29/18 15:20 09/29/18 15:20 09/29/18 15:20 09/29/18 15:20 09/29/18 15:20 Oxygen Flow Rate (L/min) 3 Oxygen Delivery Method Nasal Cannula Weight: 198 lb 3.129 oz Body Mass Index (BMI) 28.4 Finger Stick Blood Glucose 122 Intake and Output for Last 24 Hours 09/27/18 09/28/18 09/29/18 23:59 23:59 23:59 Intake Total 740 / 740 Output Total 800 / 800 Balance -60 / -60 General: Awake, Alert, Oriented x 3 HEENT: PERRL, EOMI, Sclera Non Icteric Neck: Supple, Good ROM, No Lymph Node Enlargement Lungs: Diminished Left Base Cardiovascular: Regular Rhythm, Normal S1, Normal S2, No Rubs, No Gallops Murmur Murmur: Grade 2/6, Early Systolic, LLSB Vascular: No Carotid Bruits, Normal Femoral Pulses, Normal Radial Pulses, Normal Dorsalis Pedal Pulse, Normal Posterior Tibial Pulses Abdomen: Bowel Sounds Present, Soft, Non Tender, No HSM, No Organomegaly Extremities: No Cyanosis, No Clubbing, Trace RLE Edema, Trace LLE Edema Skin: No Rashes Lymphatic: No Lymph Node Enlargement Neurological: No Focal Motor or Sensory Deficit Psych/Mental Status: Appropriate 09/28/18 18:06: WBC 6.9, RBC 3.50 L, Hgb 10.4 L, Hct 32.4 L, MCV 92.6, MCH 29.7, MCHC 32.1, RDW 17.7 H, RDW Differential 58.7 H, Plt Count 122 L, MPV 9.5, Immature Gran % (Auto) 0.000, Neut % (Auto) 88.1 H, Lymph % (Auto) 4.6 L, [place] % (Auto) 6.6, Eos % (Auto) 0.4, Baso % (Auto) 0.3, Absolute Neuts (auto) 6.1, Total Counted Not Reportable 09/28/18 18:06: Sodium 133 L, Potassium 4.3, Chloride 101, Carbon Dioxide 24.0, Anion Gap 8, BUN 57 H, Creatinine 3.70 H, Est GFR (MDRD) Af Amer 21 L, Est GFR (MDRD) Non-Af 17 L, BUN/Creatinine Ratio 15.4, Glucose 240 H, Calcium 8.7, Troponin I < 0.015 09/28/18 18:06: B-Natriuretic Peptide 744.0 H 09/29/18 05:56: Sodium 134 L, Potassium 4.2, Chloride 101, Carbon Dioxide 21.0, Anion Gap 12, BUN 57 H, Creatinine 3.52 H, Est GFR (MDRD) Af Amer 22 L, Est GFR (MDRD) Non-Af 18 L, BUN/Creatinine Ratio 16.2, Glucose 187 H, Calcium 8.5 Rhythm: EKG: Normal sinus rhythm with left ventricular hypertrophy ECHO: Preserved left ventricular systolic function estimated EF 53% with moderate pulmonary hypertension with pulmonary systolic pressure of 59 mmHg and stage III diastolic dysfunction Assessment/Plan 1. Congestive heart failure-acute diastolic Patient presents with congestive heart failure and shortness of breath and is noted to have a natruretic peptide level which is elevated as well as chest x-ray findings consistent with the above. My recommendation at this time is to cautiously attempt diuresis. His renal function is precarious and he also has a unilateral kidney. I would attempt to give him 1 dose of Bumex and see how he does. He will continue with his beta-jo as before. SAKINA inhibitors are contraindicated as you know. The etiology of the above is likely secondary to the viral infection with influenza. 2. Hypertension Blood pressure appears to be under good control on the current medical therapy Plan will be to continue the same with no changes 3. Valvular heart disease status post aortic valve replacement This appears to be stable as per last echocardiogram in July 2018. I do not have any indication for any infection at this time 4. Coronary artery disease status post coronary bypass surgery The above appears to be stable and the plan will be to continue the same with no changes 5. Chronic renal insufficiency The above is secondary to hypertensive kidney disease as well as his renal carcinoma status post nephrectomy. Thank you for allowing me to participate in the care of your patient. Please don't hesitate to call if any issues arise
--- NOTE | 2018-09-29 17:31 | CON.PCM_ITS ---
Reason for Consult Date of Consultation: 09/29/18 Reason for Consultation: Shortness of breath History of Present Illness: [AMELIE ERICKSON, is a 77 M who presented to the emergency room with lethargy and mild shortness of breath. His says that she had been unwell for a few days and then he started getting unwell. He really did not run a fever and he has had his usual 1-2 pillow orthopnea he has not had any pedal edema or paroxysmal nocturnal dyspnea but he had a cough. He was evaluated in the emergency room and was noted to have an elevated natruretic peptide as well as a chest x-ray which appeared to demonstrate evidence of congestive heart failure. He was ad mitted for further evaluation and management. He is a gentleman with a history of coronary artery disease status post carotid bypass surgery and aortic valve replacement with a Yue-House bioprosthetic valve. He was admitted to the hospital as you know last year with septicemia and underwent a TIM which did not demonstrate any evidence of endocarditis despite positive blood cultures. He also underwent a repeat TIM which once again did not demonstrate any evidence of endocarditis. It appeared that he had septicemia emanating from his knee. He has had no chest pain or shortness breath or paroxysmal nocturnal dyspnea pedal edema no neck arm or jaw discomfort suggest angina no dizziness no diaphoresis no near syncope or syncope. As you know he also has a history of renal cell carcinoma and is status post nephrectomy he tells me that a spot has been seen on 1 of his lungs and then also his remaining kidney. I referred him to see the oncologist and it appears that those lesions are stable and not active following a PET scan. He is due to have a follow-up of those. He has not had any dizziness or diaphoresis. His blood pressure he says is under excellent control. His physical exam today demonstrates clear lung quesada regular rate and rhythm a soft 2/6 systolic murmur noted left sternal border and no pedal edema. ] Past Medical History Allergies/Adverse Reactions: Allergies losartan potassium [From Cozaar] Allergy (Severe, Verified 09/28/18 18:40) Other valsartan [From Diovan HCT] Allergy (Severe, Verified 09/28/18 18:40) Other amlodipine besylate [From Norvasc] Allergy (Verified 09/28/18 18:40) Other doxazosin mesylate [From Cardura] Allergy (Verified 09/28/18 18:40) Other furosemide [From Lasix] Allergy (Verified 09/28/18 18:40) Other states causes urinary system to shut down and he can't urinate hydrochlorothiazide Allergy (Verified 09/28/18 18:40) Other metoprolol succinate [From Toprol XL] Allergy (Verified 09/28/18 18:40) Other simvastatin Allergy (Verified 09/28/18 18:40) Other atenolol Adverse Reaction (Severe, Verified 09/28/18 18:40) Potential to cause CVA? losartan [From Hyzaar] Adverse Reaction (Severe, Verified 09/28/18 18:40) Ineffective oxycodone [From OxyIR] Adverse Reaction (Severe, Verified 09/28/18 18:40) tremors SEVERE CONFUSION acetaminophen [From Vicodin] Adverse Reaction (Verified 09/28/18 18:40) Other hydrocodone [From Vicodin] Adverse Reaction (Verified 09/28/18 18:40) Other vicodin Adverse Reaction (Severe, Uncoded 09/28/18 18:40) Other SEVERE CONFUSION Hydrogenated Vegetable Oil Adverse Reaction (Uncoded 09/28/18 18:40) Upset Stomach Home Medications: Ambulatory Orders Medication Instructions Recorded diltiazem ER (XR/XT) 180 mg 180 mg PO BID #180 cap 04/20/18 capsule,extended release 24 hr, controlled isosorbide mononitrate ER 60 mg 60 mg PO DAILY #90 tab 04/20/18 tablet,extended release 24 hr labetalol 100 mg tablet 100 mg PO BID #180 tab 04/20/18 Allopurinol 100 mg PO DAILY 09/28/18 Amoxicillin [Amoxil] 500 mg PO TID 09/28/18 Calcitriol 0.25 mg PO DAILY 09/28/18 Docusate Sodium [Colace] 100 mg PO DAILY 09/28/18 Iron Polysaccharide Complex 150 mg PO DAILYCM 09/28/18 [Ferrex 150] Multivitamin with Minerals 1 tab PO DAILY 09/28/18 [Multiple Vitamin] Past Medical History (Chronic Problems): Chronic Problems (Last Reviewed 09/28/18 @ 21:35 by Asa Gorman MD) Lung nodules (Chronic) History of renal cell cancer (Chronic) Left renal mass (Chronic) Presence of stent in coronary artery (Chronic) PTCA of RCA intracoronary stent January 2009 (bare metal) Premature atrial contractions (Chronic) Presence of aortocoronary bypass graft (Chronic) CABG X 4, JOE to LAD, SVG-D1 sequential - PDA1 & PDA 2 Paroxysmal atrial fibrillation (Chronic) H/O aortic valve replacement (Chronic) 07/25/15 @ [facility] Premature ventricular contractions (Chronic) 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) Hyperlipidemia (Chronic) Hypertension (Chronic) Osteoarthritis of left knee (Chronic) DM2 (diabetes mellitus, type 2) (Chronic) Chronic kidney disease (Chronic) Solitary kidney (Chronic) Surgical History: cataract, coronary bypass surgery - X 3., herniorrhaphy - Umbilical., total knee arthroplasty - Left., - - Hemorrhoidectomy, aortic valve replacement (bovine), cardiac stent, right nephrectomy 01/15/2016. Psychiatric History: No pertinent psych hx - *Family History Sibling Family History: Family History (Last Reviewed 09/28/18 @ 21:35 by Asa Gorman MD) Father CAD (coronary artery disease) Mother Hypertension Brother Diabetes History Items: Diabetes Paternal Family History: Family History (Last Reviewed 09/28/18 @ 21:35 by Asa Gorman MD) Father CAD (coronary artery disease) Mother Hypertension Brother Diabetes History Items: No pertinent history Maternal Family History: Family History (Last Reviewed 09/28/18 @ 21:35 by Asa Gorman MD) Father CAD (coronary artery disease) Mother Hypertension Brother Diabetes History Items: Cancer - breast Lives: Spouse/ Significant Other Smoking Status: Former smoker Alcohol: None Drugs: None Review of Systems - Review of Systems General: Reports: Fatigue, Malaise. Denies: Fever, Night Sweats HEENT: Denies: Vision Change Cardiovascular: Reports: Shortness of Breath, Shortness of Breath with Exertion. Denies: Chest Discomfort, Orthopnea, PND, Peripheral Edema, Palpitations, Lightheadedness, Dizziness, Near Syncope, Syncope Respiratory: Denies: Cough, Sputum Production, Hemoptysis Gastrointestinal: Denies: Hematemesis, Hematochezia, Melena Genitourinary: Denies: Dysuria, Hematuria Muscoloskeletal: Denies: Myalgias Skin: Denies: Rash Neurological: Denies: Dizziness Psychiatric: Denies: Anxiety Endocrine: Denies: Unexplained Weight Loss Hematologic/ Lymphatic: Reports: Anemia Subjectve: Pleasant gentleman in no apparent distress Objective: Vital Signs Temp Pulse Resp BP Pulse Ox 98.4 F 78 14 139/79 H 96 09/29/18 15:20 09/29/18 15:20 09/29/18 15:20 09/29/18 15:20 09/29/18 15:20 Oxygen Flow Rate (L/min) 3 Oxygen Delivery Method Nasal Cannula Weight: 198 lb 3.129 oz Body Mass Index (BMI) 28.4 Finger Stick Blood Glucose 122 Intake and Output for Last 24 Hours 09/27/18 09/28/18 09/29/18 23:59 23:59 23:59 Intake Total 740 / 740 Output Total 800 / 800 Balance -60 / -60 General: Awake, Alert, Oriented x 3 HEENT: PERRL, EOMI, Sclera Non Icteric Neck: Supple, Good ROM, No Lymph Node Enlargement Lungs: Diminished Left Base Cardiovascular: Regular Rhythm, Normal S1, Normal S2, No Rubs, No Gallops Murmur Murmur: Grade 2/6, Early Systolic, LLSB Vascular: No Carotid Bruits, Normal Femoral Pulses, Normal Radial Pulses, Normal Dorsalis Pedal Pulse, Normal Posterior Tibial Pulses Abdomen: Bowel Sounds Present, Soft, Non Tender, No HSM, No Organomegaly Extremities: No Cyanosis, No Clubbing, Trace RLE Edema, Trace LLE Edema Skin: No Rashes Lymphatic: No Lymph Node Enlargement Neurological: No Focal Motor or Sensory Deficit Psych/Mental Status: Appropriate 09/28/18 18:06: WBC 6.9, RBC 3.50 L, Hgb 10.4 L, Hct 32.4 L, MCV 92.6, MCH 29.7, MCHC 32.1, RDW 17.7 H, RDW Differential 58.7 H, Plt Count 122 L, MPV 9.5, Immature Gran % (Auto) 0.000, Neut % (Auto) 88.1 H, Lymph % (Auto) 4.6 L, [place] % (Auto) 6.6, Eos % (Auto) 0.4, Baso % (Auto) 0.3, Absolute Neuts (auto) 6.1, Total Counted Not Reportable 09/28/18 18:06: Sodium 133 L, Potassium 4.3, Chloride 101, Carbon Dioxide 24.0, Anion Gap 8, BUN 57 H, Creatinine 3.70 H, Est GFR (MDRD) Af Amer 21 L, Est GFR (MDRD) Non-Af 17 L, BUN/Creatinine Ratio 15.4, Glucose 240 H, Calcium 8.7, Troponin I < 0.015 09/28/18 18:06: B-Natriuretic Peptide 744.0 H 09/29/18 05:56: Sodium 134 L, Potassium 4.2, Chloride 101, Carbon Dioxide 21.0, Anion Gap 12, BUN 57 H, Creatinine 3.52 H, Est GFR (MDRD) Af Amer 22 L, Est GFR (MDRD) Non-Af 18 L, BUN/Creatinine Ratio 16.2, Glucose 187 H, Calcium 8.5 Rhythm: EKG: Normal sinus rhythm with left ventricular hypertrophy ECHO: Preserved left ventricular systolic function estimated EF 53% with moderate pulmonary hypertension with pulmonary systolic pressure of 59 mmHg and stage III diastolic dysfunction Assessment/Plan 1. Congestive heart failure-acute diastolic * Patient presents with congestive heart failure and shortness of breath and is noted to have a natruretic peptide level which is elevated as well as chest x- ray findings consistent with the above. My recommendation at this time is to cautiously attempt diuresis. His renal function is precarious and he also has a unilateral kidney. I would attempt to give him 1 dose of Bumex and see how he does. * He will continue with his beta-jo as before. SAKINA inhibitors are contraindicated as you know. * The etiology of the above is likely secondary to the viral infection with influenza. 2. Hypertension * Blood pressure appears to be under good control on the current medical therapy * Plan will be to continue the same with no changes * 3. Valvular heart disease status post aortic valve replacement * This appears to be stable as per last echocardiogram in July 2018. I do not have any indication for any infection at this time * 4. Coronary artery disease status post coronary bypass surgery * The above appears to be stable and the plan will be to continue the same with no changes * 5. Chronic renal insufficiency The above is secondary to hypertensive kidney disease as well as his renal carcinoma status post nephrectomy. Thank you for allowing me to participate in the care of your patient. Please don't hesitate to call if any issues arise
[2018-09-29] MEDS: Bumetanide 1 MG/4 ML Vial IV (18:01)
[2018-09-29] MEDS: Ipratropium/Albuterol Sulfate 3 ML AMPUL.NEB INHALATION (19:55)
[2018-09-29] MEDS: Oseltamivir Phosphate 30 MG Capsule PO (20:18)
[2018-09-29 22:56] LABS: Bedside Glucose 128 mg/dL (70-110)
[2018-09-30] VITALS (7 sets, daily range): BP systolic 138–146; BP diastolic 69–95; PULSE 59–71; RESP 16–18; TEMP 36.8–36.9; O2SAT 94–98
--- NOTE | 2018-09-30 05:55 | RAD_ITS ---
STUDY: X-RAY CHEST REASON FOR EXAM: Male, 77 years old. Shortness of breath TECHNIQUE: 2 views COMPARISON: September 28, 2018 FINDINGS: There is cardiomegaly with improvement in the central vascular congestive changes and edematous changes in the lower lobes. No pleural effusions. Median sternotomy wires are in place Normal visualized thoracic spine. Normal visualized ribs, clavicles, and shoulders. There is no demonstrated abnormality of the visualized soft tissue structures of the upper abdomen. RAD/Chest PA and Lateral IMPRESSION: Cardiomegaly with improved central vascular congestive changes and improved edematous changes in both lower lobes Electronically Signed: Sunny Amin MD at 0:12 EDT Tel , Service support ,
[2018-09-30 06:55] LABS: Bedside Glucose 118 mg/dL (70-110)
[2018-09-30] MEDS: Ipratropium/Albuterol Sulfate 3 ML AMPUL.NEB INHALATION (07:03)
--- NOTE | 2018-09-30 08:11 | PN.CARD_ITS ---
Subjectve: Patient seen and evaluated. Appears to be doing better this morning Objective: Vital Signs Temp Pulse Resp BP Pulse Ox 98.3 F 59 L 18 138/69 H 96 09/30/18 03:20 09/30/18 07:00 09/30/18 03:20 09/30/18 03:20 09/30/18 03:20 Oxygen Flow Rate (L/min) 2 Oxygen Delivery Method Nasal Cannula Weight: 195 lb 5.273 oz Body Mass Index (BMI) 28.4 Finger Stick Blood Glucose 122 Intake and Output for Last 24 Hours 09/28/18 09/29/18 09/30/18 23:59 23:59 23:59 Intake Total 980 / 980 360 / 360 Output Total 1150 / 1150 800 / 800 Balance -170 / -170 -440 / -440 General: Awake, Alert, Oriented x 3 HEENT: PERRL, EOMI, Sclera Non Icteric Neck: Supple, Good ROM, No Lymph Node Enlargement Lungs: Diminished Alex Bases, Rales - Left Base Cardiovascular: Regular Rhythm, Normal S1, Normal S2, No Rubs, No Gallops Murmur Murmur: Grade 2/6, Early Systolic, LLSB Vascular: No Carotid Bruits, Normal Femoral Pulses, Normal Radial Pulses, Normal Dorsalis Pedal Pulse, Normal Posterior Tibial Pulses Abdomen: Bowel Sounds Present, Soft, Non Tender, No HSM, No Organomegaly Extremities: No Cyanosis, No Clubbing, No edema Neurological: No Focal Motor or Sensory Deficit Psych/Mental Status: Appropriate Rhythm: EKG: ECHO: Stress Test: Cardiac Cath: PCI: CT Surgery: Holter monitor: EPS: PPM: CXR: Chest CT Scan: Medical Necessity - Tobacco Use Smoking Status: Former smoker Assessment/Plan 1. Congestive heart failure-acute diastolic * Patient presents with congestive heart failure and shortness of breath and is noted to have a natruretic peptide level which is elevated as well as chest x- ray findings consistent with the above. . His renal function is precarious and he also has a unilateral kidney. * He appears to be doing much better this morning with a little negative fluid balance. His chest x-ray findings also appear to have improved. * He will continue with his beta-jo as before. SAKINA inhibitors are contraindicated as you know. * The etiology of the above is likely secondary to the viral infection with influenza. 2. Hypertension * Blood pressure appears to be under good control on the current medical therapy * Plan will be to continue the same with no changes * 3. Valvular heart disease status post aortic valve replacement * This appears to be stable as per last echocardiogram in July 2018. I do not have any indication for any infection at this time * 4. Coronary artery disease status post coronary bypass surgery * The above appears to be stable and the plan will be to continue the same with no changes * 5. Chronic renal insufficiency The above is secondary to hypertensive kidney disease as well as his renal carcinoma status post nephrectomy. Thank you for allowing me to participate in the care of your patient. Please don't hesitate to call if any issues arise
[2018-09-30] MEDS: Labetalol 200 MG Tablet PO (08:33)
[2018-09-30] MEDS: Heparin Injection (Vial) 5,000 UNIT/ML VIAL 5000 UNIT SC (08:36)
[2018-09-30] MEDS: Allopurinol 100 MG Tablet PO (08:37)
[2018-09-30] MEDS: Iron Polysaccharide Complex 150 MG CAPSULE PO (08:37)
[2018-09-30] MEDS: Aspirin 81 MG TAB.CHEW PO (08:37)
[2018-09-30] MEDS: dilTIAZem CD 180 MG Capsule PO (08:37)
[2018-09-30] MEDS: AMOXICILLIN 500 MG CAPSULE PO (08:37)
[2018-09-30] MEDS: Multivitamins,Ther W-Minerals Tablet 1 TABLET PO (08:37)
[2018-09-30] MEDS: Isosorbide Mononitrate 60 MG Tablet PO (08:38)
[2018-09-30] MEDS: Docusate Sodium 100 MG Capsule PO (08:38)
[2018-09-30] MEDS: Calcitriol 0.25 MCG Capsule PO (08:38)
[2018-09-30] MEDS: guaiFENesin 1,200 MG Tablet 1200 MG PO (08:38)
--- NOTE | 2018-09-30 10:40 | DCINST_ITS ---
- Discharge Diagnoses Current Active Problems: Current Active and Chronic Problems (Last Reviewed 09/28/18 @ 21:35 by Asa Gorman MD) Influenza A (Acute) Heart failure with preserved ejection fraction (Acute) You will use the following diet at home:: Cardiac Discharge Activity: Return to Normal Activity Call your doctor if you observe: Fever of 101 or Higher, Shortness of breath, Dizziness, Fainting spells, Chest pain Additional Instructions: Recommend taking renal dose amoxicillin 500 mg twice daily until reassess kidney function with primary care physician at follow up. Allergies/Adverse Reactions: Allergies losartan potassium [From Cozaar] Allergy (Severe, Verified 09/28/18 18:40) Other valsartan [From Diovan HCT] Allergy (Severe, Verified 09/28/18 18:40) Other amlodipine besylate [From Norvasc] Allergy (Verified 09/28/18 18:40) Other doxazosin mesylate [From Cardura] Allergy (Verified 09/28/18 18:40) Other furosemide [From Lasix] Allergy (Verified 09/28/18 18:40) Other states causes urinary system to shut down and he can't urinate hydrochlorothiazide Allergy (Verified 09/28/18 18:40) Other metoprolol succinate [From Toprol XL] Allergy (Verified 09/28/18 18:40) Other simvastatin Allergy (Verified 09/28/18 18:40) Other atenolol Adverse Reaction (Severe, Verified 09/28/18 18:40) Potential to cause CVA? losartan [From Hyzaar] Adverse Reaction (Severe, Verified 09/28/18 18:40) Ineffective oxycodone [From OxyIR] Adverse Reaction (Severe, Verified 09/28/18 18:40) tremors SEVERE CONFUSION acetaminophen [From Vicodin] Adverse Reaction (Verified 09/28/18 18:40) Other hydrocodone [From Vicodin] Adverse Reaction (Verified 09/28/18 18:40) Other vicodin Adverse Reaction (Severe, Uncoded 09/28/18 18:40) Other SEVERE CONFUSION Hydrogenated Vegetable Oil Adverse Reaction (Uncoded 09/28/18 18:40) Upset Stomach Medications to take at Discharge diltiazem ER (XR/XT) 180 mg capsule,extended release 24 hr, controlled 180 mg PO BID #180 cap 04/20/18 isosorbide mononitrate ER 60 mg tablet,extended release 24 hr 60 mg PO DAILY #90 tab 04/20/18 labetalol 100 mg tablet 100 mg PO BID #180 tab 04/20/18 Allopurinol 100 mg PO DAILY 09/28/18 Amoxicillin [Amoxil] 500 mg PO TID 09/28/18 Calcitriol 0.25 mg PO DAILY 09/28/18 Docusate Sodium [Colace] 100 mg PO DAILY 09/28/18 Iron Polysaccharide Complex [Ferrex 150] 150 mg PO DAILYCM 09/28/18 Multivitamin with Minerals [Multiple Vitamin] 1 tab PO DAILY 09/28/18 Albuterol Inhaler [Ventolin Hfa] 1 - 2 puff INHALATION Q4H PRN PRN #1 inhaler 09/30/18 Guaifenesin [Mucinex] 1,200 mg PO BID #14 tablet 09/30/18 Oseltamivir Phosphate [Tamiflu] 30 mg PO DAILY@2200 #3 capsule 09/30/18 The following prescriptions were given: Albuterol Inhaler [Ventolin Hfa] 1 - 2 puff INHALATION Q4H PRN PRN #1 inhaler PRN Reason: Shortness Of Breath Oseltamivir Phosphate [Tamiflu] 30 mg PO DAILY@2200 #3 capsule Guaifenesin [Mucinex] 1,200 mg PO BID #14 tablet Primary Care Physician: Dejuan Catherine DO [Primary Care Provider] - Please follow up with your Primary Care Physician in: 1 Week Test Results: Test results from this visit will be discussed in further detail at your follow- up appointment, if applicable. Please Follow Up With: Ravi Frye MD When: As scheduled, 10/19/18 Please Follow Up With: Nephrology When: As scheduled, or with 1-2 Weeks Proposed Discharge Date: 09/30/18
--- NOTE | 2018-09-30 10:47 | CASEMGMT ---
Per Meredith RN, pt tested for home oxygen and did not qualify at this time. James JONES CM
--- NOTE | 2018-09-30 10:54 | DS.PCM_ITS ---
Discharge Date and Diagnosis Date of Admission: 09/28/18 Date of Discharge: 09/30/18 - Primary Discharge Diagnosis Active and Suspected Problems (Last Reviewed 09/28/18 @ 21:35 by Asa Gorman MD) 1. Acute hypoxic respiratory failure secondary to old acute influenza A viral syndrome 2. Acute diastolic CHF exacerbation, mild secondary to #1 3. Chronic kidney disease stage IV with solitary kidney secondary to history of renal cell carcinoma status post right nephrectomy 4. Valvular heart disease, history of aortic valve stenosis status post aortic valve replacement 5. Type 2 diabetes mellitus 6. Anemia of chronic disease/iron deficiency anemia 7. CAD status post CABG 8. Hypertension 9. Hyperlipidemia 10. 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 - Secondary Discharge Diagnosis Chronic Problems (Last Reviewed 09/28/18 @ 21:35 by Asa Gorman MD) Lung nodules (Chronic) History of renal cell cancer (Chronic) Left renal mass (Chronic) Presence of stent in coronary artery (Chronic) PTCA of RCA intracoronary stent January 2009 (bare metal) Premature atrial contractions (Chronic) Presence of aortocoronary bypass graft (Chronic) CABG X 4, JOE to LAD, SVG-D1 sequential - PDA1 & PDA 2 Paroxysmal atrial fibrillation (Chronic) H/O aortic valve replacement (Chronic) 07/25/15 @ [facility] Premature ventricular contractions (Chronic) 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 Frye- Cardiology Operations: None Procedures: None Summary of Care Provided: The patient is a 77 year old M admitted 09/28/18 due to flulike symptoms. 1. Acute hypoxic respiratory failure secondary to acute influenza A viral syndrome as well as mild acute diastolic CHF-continue renally dose Tamiflu 30 mg daily for 5 days total. Patient weaned off of supplemental oxygen. Walking pulse ox completed prior to discharge and patient's oxygen remained stable on room air. Albuterol inhaler as needed for shortness of breath. Follow-up with primary care physician in 1 week. 2. Acute diastolic CHF exacerbation, mild secondary to #1-chest x-ray on admission with mild CHF. Patient received IV Bumex x1. Repeat chest x-ray improved. Recent echocardiogram July 2018 with EF 53%, moderate mitral valve insufficiency, stage III diastolic dysfunction, moderate pulmonary hypertension with pulmonary artery systolic pressure 59 mmHg. Continue outpatient follow-up with cardiology as scheduled. 3. Chronic kidney disease stage IV with solitary kidney secondary to history of renal cell carcinoma status post right [id number] with nephrology in 1-2 weeks. 4. Valvular heart disease, history of aortic valve stenosis status post aortic valve replacement 5. Type 2 diabetes mellitus-ADA diet. Not on regimen. 6. Anemia of chronic disease/iron deficiency anemia-stable, continue home iron supplementation. 7. CAD status post CABG-follows with Dr. Frye. Continue beta-jo. Not on aspirin, statin regimen. 8. Hypertension-stable, continue home labetalol, Cardizem, isosorbide regimen. 9. Hyperlipidemia-allergy to statin. 10. 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 Recommend continuing this until follow-up BMP with primary care physician. Patient seen and examined prior to discharge. Physical assessment as noted below. Patient is stable for discharge with follow up recommendations as noted above. This patient was seen by SAMEER Downing under the supervision of Dr. Bang. - Physical Exam General: Alert, Oriented x3, Cooperative HEENT: Atraumatic, PERRLA, EOMI, Normocephalic Oral: Moist Mucosa Neck: Supple, No JVD, Negative Carotid Bruits Lungs: Diminished, - - Minimal rales Cardiovascular: Regular rate, Regular Rhythm, Normal S1, Normal S2, Murmur Abdomen: Bowel Sounds Present, Soft, Non Tender, Non-Distended Extremities: No clubbing, No cyanosis, No edema, Capillary Refill Less than 3 Seconds Skin: No rashes, No breakdown Musculoskeletal: No Tenderness to Palpation of Joints or Extremities Neurological: Cranial nerves II-XII grossly intact, Neuro grossly intact Psych/Mental Status: Normal Affect, Appropriate Vital Signs Temp Pulse Resp BP Pulse Ox 98.4 F 60 16 146/95 H 98 09/30/18 09:05 09/30/18 09:05 09/30/18 09:05 09/30/18 09:05 09/30/18 10:48 Oxygen Flow Rate (L/min) 2 Oxygen Delivery Method Room Air Weight: 195 lb 5.273 oz Body Mass Index (BMI) 28.4 Finger Stick Blood Glucose 122 Intake and Output for Last 24 Hours 09/28/18 09/29/18 09/30/18 23:59 23:59 23:59 Intake Total 980 / 980 360 / 360 Output Total 1150 / 1150 800 / 800 Balance -170 / -170 -440 / -440 Microbiology Past 72 Hours 09/28/18 17:15 Influenza Types A,B Direct FA (JAYE) - Final Mucosa - Nose Influenzae A POC Glucose 09/30/18 09/29/18 09/29/18 06:49 21:29 15:55 POC Glucose 118 H 128 H 141 H 09/29/18 10:57 POC Glucose 220 H Discharge Diet: Low fat/ Low Cholesterol Discharge Activity: Return to Normal Activity Call your doctor if you observe: Fever of 101 or Higher, Shortness of breath, Dizziness, Fainting spells, Chest pain Home Medications: Medications to take at Discharge diltiazem ER (XR/XT) 180 mg capsule,extended release 24 hr, controlled 180 mg PO BID #180 cap 04/20/18 isosorbide mononitrate ER 60 mg tablet,extended release 24 hr 60 mg PO DAILY #90 tab 04/20/18 labetalol 100 mg tablet 100 mg PO BID #180 tab 04/20/18 Allopurinol 100 mg PO DAILY 09/28/18 Amoxicillin [Amoxil] 500 mg PO TID 09/28/18 Calcitriol 0.25 mg PO DAILY 09/28/18 Docusate Sodium [Colace] 100 mg PO DAILY 09/28/18 Iron Polysaccharide Complex [Ferrex 150] 150 mg PO DAILYCM 09/28/18 Multivitamin with Minerals [Multiple Vitamin] 1 tab PO DAILY 09/28/18 Albuterol Inhaler [Ventolin Hfa] 1 - 2 puff INHALATION Q4H PRN PRN #1 inhaler 09/30/18 Guaifenesin [Mucinex] 1,200 mg PO BID #14 tablet 09/30/18 Oseltamivir Phosphate [Tamiflu] 30 mg PO DAILY@2200 #3 capsule 09/30/18 Following Prescrptions Were Given to Patient: Albuterol Inhaler [Ventolin Hfa] 1 - 2 puff INHALATION Q4H PRN PRN #1 inhaler PRN Reason: Shortness Of Breath Oseltamivir Phosphate [Tamiflu] 30 mg PO DAILY@2200 #3 capsule Guaifenesin [Mucinex] 1,200 mg PO BID #14 tablet Primary Care Physician: Dejuan Catherine DO [Primary Care Provider] - Please follow up with your Primary Care Physician in: 1 Week Please Follow Up With: Ravi Frye MD When: As scheduled, 10/19/18 Please Follow Up With: Nephrology When: As scheduled, or with 1-2 Weeks Disposition: Home Minutes spent on discharge:: 35 Patient Condition:: Stable Medical Necessity - Tobacco Use Smoking Status: Former smoker Meaningful Use Info Meaningful Use Diagnoses (Choose all that apply): CHF - CHF SAKINA/ARB ordered at discharge?: No Reason SAKINA/ARB not ordered?: Worsening renal disease Documented LVEF (%): 53
--- NOTE | 2018-09-30 11:21 | PHA.DC.MC ---
Pharmacy Service has performed discharge medication reconciliation and counseling for this patient. The patient's discharge medication list was reviewed for discrepancies and discrepancies were resolved. The patient was counseled on the following discharge medications and changes in medications for homegoing were reviewed. 1. TAMIFLU 2. ALBUTEROL INHALER The Reason for Use, instructions for use, and potential side effects were reviewed for all new medications. The patient's questions regarding all of their medications were answered. The patient was able to verbally demonstrate an understanding of their discharge medications. Home Medications diltiazem ER (XR/XT) 180 mg capsule,extended release 24 hr, controlled 180 mg PO BID #180 cap 04/20/18 isosorbide mononitrate ER 60 mg tablet,extended release 24 hr 60 mg PO DAILY #90 tab 04/20/18 labetalol 100 mg tablet 100 mg PO BID #180 tab 04/20/18 Allopurinol 100 mg PO DAILY 09/28/18 Amoxicillin [Amoxil] 500 mg PO TID 09/28/18 Calcitriol 0.25 mg PO DAILY 09/28/18 Docusate Sodium [Colace] 100 mg PO DAILY 09/28/18 Iron Polysaccharide Complex [Ferrex 150] 150 mg PO DAILYCM 09/28/18 Multivitamin with Minerals [Multiple Vitamin] 1 tab PO DAILY 09/28/18 Albuterol Inhaler [Ventolin Hfa] 1 - 2 puff INHALATION Q4H PRN PRN #1 inhaler 09/30/18 Guaifenesin [Mucinex] 1,200 mg PO BID #14 tablet 09/30/18 Oseltamivir Phosphate [Tamiflu] 30 mg PO DAILY@2200 #3 capsule 09/30/18
--- NOTE | 2018-10-01 15:13 | CASEMGMT ---
KAREN CHAVEZ Discharge F/U Phone Call LACE: 10 Strata: 3 Discharge date: 09/30/18 Call date: 10/01/18 Call time: 1514 Duration: 9 minutes Admission dx: CHF, Influenza Pt states 'not doing too badly' since discharge. Pt states no questions regarding discharge medications/instructions at this time. Pt states plans to keep f/u appt's. Pt states only suggestion for [facility] is new mattressess at this time. Pt states that 'we are always happy with the care and [facility].' Pt voices no further questions/concerns/needs at this time. [place] KAREN CHAVEZ
== END 2018-09-30 11:46 | disposition home or self-care (01) | DRG 193 ==
LOC: ED 18:27 → PCU 20:56
PROVIDERS: Admitting Provider Hospitalist; Emergency Provider Emergency Medicine; Family Provider Family Medicine; PCP Family Medicine; Visit Provider Family Medicine
DX: J10.1 Influenza due to other identified influenza virus with other respiratory manifestations (principal); I50.33 Acute on chronic diastolic (congestive) heart failure; N18.4 Chronic kidney disease, stage 4 (severe); I13.0 Hypertensive heart and chronic kidney disease with heart failure and stage 1 through stage 4 chronic kidney disease, or unspecified chronic kidney disease; I16.0 Hypertensive urgency; I48.0 Paroxysmal atrial fibrillation; M10.9 Gout, unspecified; E11.40 Type 2 diabetes mellitus with diabetic neuropathy, unspecified; E78.5 Hyperlipidemia, unspecified; E11.22 Type 2 diabetes mellitus with diabetic chronic kidney disease; I25.10 Atherosclerotic heart disease of native coronary artery without angina pectoris; D53.9 Nutritional anemia, unspecified; Z95.1 Presence of aortocoronary bypass graft; Z95.5 Presence of coronary angioplasty implant and graft; Z87.891 Personal history of nicotine dependence; Z95.3 Presence of xenogenic heart valve; Z85.528 Personal history of other malignant neoplasm of kidney; Z90.5 Acquired absence of kidney
CPT/HCPCS: 36415; 71046; 80048; 82962; 83880; 84443; 84484; 85025; 87804; 93005; 94640; 97162; 97166; 97530; 99285; J7030; J7040; A4216

== ENCOUNTER 2018-10-12 08:34 | Inpatient (IN) | payer MEDICARE, OTHER, SELFPAY ==
[2018-09-28 21:16] VITALS: BMI 28.4
[2018-10-12] VITALS (18 sets, daily range): BP systolic 131–173; BP diastolic 72–98; PULSE 54–86; RESP 16–20; TEMP 36.4–36.8; O2SAT 91–98; BMI 28.3
--- NOTE | 2018-10-12 08:53 | EKG12_ITS ---
Test Reason : SOB Blood Pressure : / mmHG Vent. Rate : 070 BPM Atrial Rate : 070 BPM P-R Int : 188 ms QRS Dur : 116 ms QT Int : 448 ms P-R-T Axes : 026 028 116 degrees QTc Int : 483 ms Sinus rhythm with occasional Premature ventricular complexes and Fusion complexes Incomplete left bundle branch block T wave abnormality, consider lateral ischemia Prolonged QT Abnormal ECG Confirmed by NAVDEEP WILLIS, ANJELICA ([id number]), editor farm journal JOHN TATUM ([id number]) on 10/18/2018 4:14:22 PM Referred By: KEVIN Confirmed By:ANJELICA SETHI MD
--- NOTE | 2018-10-12 09:04 | RAD_ITS ---
STUDY: X-RAY CHEST REASON FOR EXAM: Male, 77 years old. Chest pain. Prior aortic valve replacement. TECHNIQUE: Single AP portable view of the chest. COMPARISON: Comparison is made with prior study dated September 30, 2018. FINDINGS: There is evidence of vascular congestion and mild CHF with superimposed atelectasis and/or infiltrate at the left lung base. Blunting of both costophrenic angles. Sternal cerclage wires and vascular clips are present from a prior sternotomy and coronary artery bypass graft procedure (CABG). Prior aortic valve replacement. Moderate cardiomegaly. Normal mediastinum and coco. Normal visualized pulmonary arteries. There is atherosclerotic calcification of the aortic arch with tortuosity. There are diffuse degenerative changes of the visualized thoracic spine. Normal visualized ribs, clavicles, and shoulders. There is no demonstrated abnormality of the visualized soft tissue structures of the upper abdomen. RAD/Chest 1 View (Portable) IMPRESSION: Cardiomegaly. Mild CHF with a left basilar atelectasis and/or infiltrate. Blunting of both costophrenic angles. Electronically Signed: Marquis Luna, at 9:25 EDT , Service support ,
[2018-10-12 09:40] LABS: Absolute Lymphocyte Count 0.43 X10^3/ul (0.83-4.51); Absolute Neutrophil Count 8.2 X10^3/uL (2.0-7.7); Basophil# 0.02 X10^3/uL; Basophil% 0.2 % (0-1); Eosinophil# 0.18 X10^3/uL; Eosinophils% 1.9 % (0-5); Hematocrit 30.2 % (40-54); Hemoglobin 9.7 g/dl (13.0-16.5); Lymphocyte # 0.43 X10^3/ul (4.0); Lymphocyte % 4.5 % (19-41); Mean Corp Hgb Conc 32.1 g/gl (32-36); Mean Corpuscular Hgb 28.8 pg (27.0-32.0); Mean Corpuscular Volume 89.6 fL (80-94); Monocyte# 0.78 X10^3/uL; Monocyte% 8.1 % (0-10); Neutrophil # 8.17 X10^3/uL (2.7-7.7); Neutrophil % 85.2 % (47-70); Platelet Count 175 K/mm3 (150-450); RBC Distribution Width CV 16.9 % (11.6-14.6); Red Blood Count 3.37 M/mm3 (4.6-6.2); White Blood Count 9.6 K/mm3 (4.4-11.0)
[2018-10-12 09:42] LABS: Differential Indicated SCAN CRITERIA MET; POSITIVE COUNT NO; POSITIVE DIFFERENTIAL YES; POSITIVE MORPHOLOGY NO
[2018-10-12 09:50] LABS: Anion Gap 7 (5-15); BUN 55 mg/dL (7-18); BUN/Creat Ratio 16.2 RATIO (10-20); Calcium,Total 9.3 mg/dL (8.5-10.1); Chloride 105 mmol/L (98-107); Creatinine, Serum 3.39 mg/dL (0.70-1.30); EST Glomerular Filtration Rate 19 mL/min (>60); Est Glom Filt Rate - Afr Amer 23 mL/min (>60); Estimated Creatinine Clearance 18.84 ml/min; Glucose 129 mg/dL (74-106); Potassium 4.1 mmol/L (3.5-5.1); Sodium Level 138 mmol/L (136-145)
[2018-10-12 10:06] LABS: BNP,B-Type NATRIURETIC PEPTIDE 904.2 pg/mL (0-100)
[2018-10-12 10:15] LABS: Platelet Estimate ADEQUATE (ADEQ); Red Cell Morphology NORM C+C NORMAL (NORM C&C)
--- NOTE | 2018-10-12 10:22 | ED.VISSUMM ---
- ER Visit Summary Date of Service: 10/12/18 Chief Complaint: Shortness of breath History of Present Illness: The patient is a 77 M with shortness of breath. He has an extensive medical history including heart failure, coronary disease, A. fib, and solitary kidney from renal cancer, among others. He was recently admitted for influenza A. He presents today for shortness of breath which has worsened steadily over the past 2 days. It is worse with exertion. He is denying cough or sputum. Denies hemoptysis. He denies any chest pain. Symptoms are worse when he exerts himself or stands up. He recently received a dose of Bumex by his pre press operator, but is not currently on diuretics because of his kidney function. He is not on blood thinners. He does take amoxicillin 3 times a day for history of septic joints and he is currently on that for prophylaxis by his ID doctor. Patient is on the list for transplant. He does not undergo dialysis. He is planning to follow-up with a new engineering writer in about a month. Physical Examination: Afebrile and vital signs unremarkable. Pulse ox is 91% on room air. Lungs are diminished in all quesada. Heart regular rate and rhythm. Extremities nontender with no edema. Skin appears normal. Test Results: EKG showed sinus rhythm at a rate of 70. He does have PVCs and an incomplete left bundle branch block pattern. Nonspecific T wave changes. QTc 483. Hemoglobin stable 9.7. BUN 55 and creatinine 3.39, stable. Troponin normal. BNP 904. Chest x-ray showed cardiomegaly, CHF, and a left basilar atelectasis versus infiltrate. Emergency Department Course and Treatment: Patient presents with increasing shortness of breath. I suspect this is a CHF/volume overload issue given his history of CHF and his solitary kidney with chronic kidney disease. His workup was fairly unremarkable. BNP was 904 and his chest x-ray did show congestion. I do not believe he has pneumonia or infectious process. He has no fevers, sputum, and his white count is normal. I am concerned that he will need cautious diuresis. He did ambulate in the department on room air, and he was 88% and symptomatically short of breath. I will contact the hospitalist for inpatient care. Treatment Plan: As above Disposition: Admit Impression: 1. Dyspnea 2. CHF 3. Chronic kidney disease This note was generated with Dragon dictation software. It may contain incorrect words, spelling, and punctuation that were not noted in review of the chart prior to signing ED Disposition - Plan for ED Patient: Referrals: Dejuan Catherine DO [Primary Care Provider] -
--- NOTE | 2018-10-12 10:27 | ED.DCSUM_ITS ---
- ER Visit Summary Date of Service: 10/12/18 Chief Complaint: Shortness of breath History of Present Illness: The patient is a 77 M with shortness of breath. He has an extensive medical history including heart failure, coronary disease, A. fib, and solitary kidney from renal cancer, among others. He was recently admitted for influenza A. He presents today for shortness of breath which has worsened steadily over the past 2 days. It is worse with exertion. He is denying cough or sputum. Denies hemoptysis. He denies any chest pain. Symptoms are worse when he exerts himself or stands up. He recently received a dose of Bumex by his exercise planner, but is not currently on diuretics because of his kidney function. He is not on blood thinners. He does take amoxicillin 3 times a day for history of septic joints and he is currently on that for prophylaxis by his ID doctor. Patient is on the list for transplant. He does not undergo dialysis. He is planning to follow-up with a new director of business applications in about a month. Physical Examination: Afebrile and vital signs unremarkable. Pulse ox is 91% on room air. Lungs are diminished in all quesada. Heart regular rate and rhythm. Extremities nontender with no edema. Skin appears normal. Test Results: EKG showed sinus rhythm at a rate of 70. He does have PVCs and an incomplete left bundle branch block pattern. Nonspecific T wave changes. QTc 483. Hemoglobin stable 9.7. BUN 55 and creatinine 3.39, stable. Troponin normal. BNP 904. Chest x-ray showed cardiomegaly, CHF, and a left basilar atelectasis versus infiltrate. Emergency Department Course and Treatment: Patient presents with increasing shortness of breath. I suspect this is a CHF/volume overload issue given his history of CHF and his solitary kidney with chronic kidney disease. His workup was fairly unremarkable. BNP was 904 and his chest x-ray did show congestion. I do not believe he has pneumonia or infectious process. He has no fevers, sputum, and his white count is normal. I am concerned that he will need cautious diuresis. He did ambulate in the department on room air, and he was 88% and symptomatically short of breath. I will contact the hospitalist for inpatient care. Treatment Plan: As above Disposition: Admit Impression: 1. Dyspnea 2. CHF 3. Chronic kidney disease This note was generated with Dragon dictation software. It may contain incorrect words, spelling, and punctuation that were not noted in review of the chart prior to signing ED Disposition - Plan for ED Patient: Referrals: Dejuan Catherine DO [Primary Care Provider] -
--- NOTE | 2018-10-12 10:38 | HP.PCM_ITS ---
Problem List (1) CHF (congestive heart failure) Status: Acute (2) Influenza A Status: Acute (3) Heart failure with preserved ejection fraction Status: Acute Qualifiers: Heart failure chronicity: acute on chronic Qualified Code(s): I50.33 - Acute on chronic diastolic (congestive) heart failure (4) Lung nodules Status: Chronic (5) History of renal cell cancer Status: Chronic (6) Cancer of right kidney Status: Resolved (7) Left renal mass Status: Chronic (8) Pleural cavity effusion Status: Resolved (9) Presence of stent in coronary artery Status: Chronic Comment: PTCA of RCA intracoronary stent January 2009 (bare metal) (10) Premature atrial contractions Status: Chronic (11) Presence of aortocoronary bypass graft Status: Chronic Comment: CABG X 4, JOE to LAD, SVG-D1 sequential - PDA1 & PDA 2 (12) Paroxysmal atrial fibrillation Status: Chronic (13) H/O aortic valve replacement Status: Chronic Comment: 07/25/15 @ [facility] (14) Premature ventricular contractions Status: Chronic (15) Encounter for adjustment or management of vascular access device Status: Inactive (16) Septic joint of left knee joint Status: Chronic (17) Septic arthritis Status: Chronic Qualifiers: Septic arthritis location: knee Laterality: right (18) Hyperlipidemia Status: Chronic Qualifiers: Hyperlipidemia type: unspecified Qualified Code(s): E78.5 - Hyperlipidemia, unspecified (19) Hypertension Status: Chronic Qualifiers: Hypertension type: essential hypertension Qualified Code(s): I10 - Essential (primary) hypertension (20) Osteoarthritis of left knee Status: Chronic (21) DM2 (diabetes mellitus, type 2) Status: Chronic Qualifiers: 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 use: without middle or intermediate school principal use Diabetes mellitus complication status: without complication Qualified Code(s): E11.9 - Type 2 diabetes mellitus without complications (22) Bacteremia due to Enterococcus Status: Inactive (23) Chronic kidney disease Status: Chronic Qualifiers: Chronic kidney disease stage: stage 4 (severe) Qualified Code(s): N18.4 - Chronic kidney disease, stage 4 (severe) (24) Solitary kidney Status: Chronic (25) VINOD (acute kidney injury) Status: Resolved History of Present Illness Date of Admission: 10/12/18 Chief Complaint: Shortness of breath The patient is a 77 year old M with past medical history significant for CAD with CABG and subsequent PCI, recent hospitalization for influenza A, 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 Patient reports progressive shortness of breath following her recent admission. In addition did notice increasing swelling involving both lower extremities. He complains of orthopnea and exertional dyspnea. 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 Blunting of both costophrenic angles. Patient admitted to a monitored bed for subsequent management Past Medical History Past Medical History (Chronic Problems): Chronic Problems (Last Reviewed 09/28/18 @ 21:35 by Asa Gorman MD) Lung nodules (Chronic) History of renal cell cancer (Chronic) Left renal mass (Chronic) Presence of stent in coronary artery (Chronic) PTCA of RCA intracoronary stent January 2009 (bare metal) Premature atrial contractions (Chronic) Presence of aortocoronary bypass graft (Chronic) CABG X 4, JOE to LAD, SVG-D1 sequential - PDA1 & PDA 2 Paroxysmal atrial fibrillation (Chronic) H/O aortic valve replacement (Chronic) 07/25/15 @ [facility] Premature ventricular contractions (Chronic) 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) Hyperlipidemia (Chronic) Hypertension (Chronic) Osteoarthritis of left knee (Chronic) DM2 (diabetes mellitus, type 2) (Chronic) Chronic kidney disease (Chronic) Solitary kidney (Chronic) Medical History: Medical History (Last Reviewed 10/12/18 @ 11:42 by Ricci Stein MD) Premature atrial contractions (Chronic) I49.1 Paroxysmal atrial fibrillation (Chronic) I48.0 Premature ventricular contractions (Chronic) I49.3 Encounter for adjustment or management of vascular access device (Inactive) Z45.2 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) M00.9 Septic arthritis (Chronic) M00.9 Hyperlipidemia (Chronic) E78.5 Hypertension (Chronic) I10 Osteoarthritis of left knee (Chronic) M17.12 DM2 (diabetes mellitus, type 2) (Chronic) E11.9 Bacteremia due to Enterococcus (Inactive) R78.81, B95.2 Chronic kidney disease (Chronic) N18.9 Solitary kidney (Chronic) Q60.0 VINOD (acute kidney injury) (Resolved) N17.9 Cancer of right kidney C64.1 S/P nephrectomy on January 13, 2016 at Left renal mass N28.89 S/p nephrectomy Z90.5 right Syncope and collapse R55 Atherosclerotic heart disease of [place] coronary artery without angina pectoris I25.10 CABG X 4, JOE to LAD, SVG-D1 sequential - PDA1 & PDA 07 July 2015 at [facility] in [place]; PTCA of RCA intracoronary stent January 2009 (bare metal) Nonrheumatic aortic (valve) stenosis I35.0 Allergies losartan potassium [From Cozaar] Allergy (Severe, Verified 10/12/18 08:35) Other valsartan [From Diovan HCT] Allergy (Severe, Verified 10/12/18 08:35) Other amlodipine besylate [From Norvasc] Allergy (Verified 10/12/18 08:35) Other doxazosin mesylate [From Cardura] Allergy (Verified 10/12/18 08:35) Other furosemide [From Lasix] Allergy (Verified 10/12/18 08:35) Other states causes urinary system to shut down and he can't urinate hydrochlorothiazide Allergy (Verified 10/12/18 08:35) Other metoprolol succinate [From Toprol XL] Allergy (Verified 10/12/18 08:35) Other simvastatin Allergy (Verified 10/12/18 08:35) Other atenolol Adverse Reaction (Severe, Verified 10/12/18 08:35) Potential to cause CVA? losartan [From Hyzaar] Adverse Reaction (Severe, Verified 10/12/18 08:35) Ineffective oxycodone [From OxyIR] Adverse Reaction (Severe, Verified 10/12/18 08:35) tremors SEVERE CONFUSION acetaminophen [From Vicodin] Adverse Reaction (Verified 10/12/18 08:35) Other hydrocodone [From Vicodin] Adverse Reaction (Verified 10/12/18 08:35) Other vicodin Adverse Reaction (Severe, Uncoded 10/12/18 08:35) Other SEVERE CONFUSION Hydrogenated Vegetable Oil Adverse Reaction (Uncoded 10/12/18 08:35) Upset Stomach Home Medications: Ambulatory Orders Medication Instructions Recorded diltiazem ER (XR/XT) 180 mg 180 mg PO BID #180 cap 04/20/18 capsule,extended release 24 hr, controlled isosorbide mononitrate ER 60 mg 60 mg PO DAILY #90 tab 04/20/18 tablet,extended release 24 hr labetalol 100 mg tablet 100 mg PO BID #180 tab 04/20/18 Allopurinol 100 mg PO DAILY 09/28/18 Amoxicillin [Amoxil] 500 mg PO TID 09/28/18 Docusate Sodium [Colace] 100 mg PO DAILY 09/28/18 Iron Polysaccharide Complex 150 mg PO DAILYCM 09/28/18 [Ferrex 150] Multivitamin with Minerals 1 tab PO DAILY 09/28/18 [Multiple Vitamin] Albuterol Inhaler [Ventolin Hfa] 1 - 2 puff INHALATION Q4H PRN PRN 09/30/18 #1 inhaler Guaifenesin [Mucinex] 1,200 mg PO BID #14 tablet 09/30/18 Ascorbic Acid [C-1000] 1,000 mg PO DAILY 10/12/18 Cholecalciferol (VIT D3) [Vitamin 2,000 unit PO DAILY 10/12/18 D] Surgical History: Surgical History (Last Reviewed 10/12/18 @ 11:42 by Ricci Stein MD) Presence of stent in coronary artery (Chronic) Z95.5 PTCA of RCA intracoronary stent January 2009 (bare metal) Presence of aortocoronary bypass graft (Chronic) Z95.1 CABG X 4, JOE to LAD, SVG-D1 sequential - PDA1 & PDA 2 H/O aortic valve replacement (Chronic) Z95.2 07/25/15 @ [facility] H/O hemorrhoidectomy Z98.890 History of left knee replacement Z96.652 port placement port removal 10/2017 Surgical History: cataract, coronary bypass surgery - X 3., herniorrhaphy - Umbilical., total knee arthroplasty - Left., - - Hemorrhoidectomy, aortic valve replacement (bovine), cardiac stent, right nephrectomy 01/15/2016. Psychiatric History: No pertinent psych hx Smoking Status: Former smoker - *Family History Sibling Family History: Family History (Last Reviewed 10/12/18 @ 11:42 by Ricci Stein MD) Father CAD (coronary artery disease) Mother Hypertension Brother Diabetes History Items: Diabetes Paternal Family History: Family History (Last Reviewed 10/12/18 @ 11:42 by Ricci Stein MD) Father CAD (coronary artery disease) Mother Hypertension Brother Diabetes History Items: No pertinent history Maternal Family History: Family History (Last Reviewed 10/12/18 @ 11:42 by Ricci Stein MD) Father CAD (coronary artery disease) Mother Hypertension Brother Diabetes History Items: Cancer - breast Review of Systems Constitutional: Reports: Malaise, Weakness. Denies: Anorexia, Chills, Fever HEENT: Denies: Head Aches, Sinus Congestion, Sinus Drainage Cardiovascular: Reports: Edema, Orthopnea. Denies: Chest Pain Respiratory: Reports: Shortness of breath upon exertion Gastrointestinal: Denies: Abdominal Pain, Hematemesis, Hematochezia, Nausea, Melena, Vomiting Genitourinary: Denies: Dysuria, Frequency, Hematuria, Urgency Musculoskeletal: Denies: Joint Pain, Joint Tenderness Skin: Denies: Rash Neurological: Denies: Focal weakness, Numbness, Tingling Psychiatric: Denies: Homicidal Ideations, Suicidal Ideations Hematologic/ Lymphatic: Denies: Easy Bruising, Easy Bleeding VTE Information - Inpt Only VTE Present on Admission: No VTE Mechan Device Prophylaxis: Thigh High JUANA Hose VTE Pharm Prophylaxis ordered?: Yes Patient Problems: Active and Suspected Problems (Last Reviewed 09/28/18 @ 21:35 by Asa Gorman MD) CHF (congestive heart failure) (Acute) - Physical Exam Vital Signs Temp Pulse Resp BP Pulse Ox 97.9 F 69 18 157/95 H 95 10/12/18 08:35 10/12/18 09:15 10/12/18 09:15 10/12/18 09:15 10/12/18 09:15 Oxygen Flow Rate (L/min) 2 Oxygen Delivery Method Room Air Weight: 89.499 kg Body Mass Index (BMI) 28.3 Finger Stick Blood Glucose 122 Laboratory Tests Past 24 Hrs 10/12/18 10/12/18 10/12/18 09:10 09:10 09:10 WBC 9.6 RBC 3.37 L Hgb 9.7 L Hct 30.2 L MCV 89.6 MCH 28.8 MCHC 32.1 RDW 16.9 H RDW Differential 56.0 H Plt Count 175 MPV 9.0 Immature Gran % (Auto) 0.100 Neut % (Auto) 85.2 H Lymph % (Auto) 4.5 L [place] % (Auto) 8.1 Eos % (Auto) 1.9 Baso % (Auto) 0.2 Absolute Neuts (auto) 8.2 H Absolute Lymphs (auto) 0.43 L Total Counted Not Reportable Differential Comment Platelet Estimate ADEQUATE RBC Morphology NORM C+C Sodium 138 Potassium 4.1 Chloride 105 Carbon Dioxide 26.0 Anion Gap 7 BUN 55 H Creatinine 3.39 H Estim Creat Clear Calc 18.84 Est GFR (MDRD) Af Amer 23 L Est GFR (MDRD) Non-Af 19 L BUN/Creatinine Ratio 16.2 Glucose 129 H Calcium 9.3 Troponin I 0.015 B-Natriuretic Peptide 904.2 H Assessment/Plan All Active Problems (Last Reviewed 09/28/18 @ 21:35 by Asa Gorman MD) CHF (congestive heart failure) (Acute) Influenza A (Acute) Heart failure with preserved ejection fraction (Acute) Cancer of right kidney (Resolved) Pleural cavity effusion (Resolved) VINOD (acute kidney injury) (Resolved) Patient is a 77-year-old gentleman with multiple comorbidities presented with exertional dyspnea and orthopnea and assessment of acute congestive heart failure made admitted to a monitored bed for further management 1. Acute diastolic congestive heart failure and echo obtained on 07/14/2018 demonstrated ejection fraction of 59%. Patient admitted to monitored bed please of fluid restriction, strict input and output, daily weight as well as IV Bumex 2. Chronic kidney disease stage IV patient has underlying history of solitary kidney following surgery for renal cell carcinoma. Consultation was placed to nephrology on admission 3. 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 History of aortic valve stenosis status post aortic valve replacement with bioprosthetic material 5. History of renal cell carcinoma status post nephrectomy on January 13, 2016 at [facility] 6. CAD with previous CABG. Had triple bypass in January 2016 at [facility] in [place] 7. Recent hospitalization for acute influenza A infection 9. Diabetes mellitus type 2 with complications including diabetic nephropathy. Currently managed on diet patient was previously on Starlix 10. Hypertension-blood pressure controlled, home medications continued with dose adjustment as needed 10. DVT prophylaxis SC heparin Code Visit Inpatient E&M: 37061 Init Hosp L3
[2018-10-12] MEDS: Heparin Injection (Vial) 5,000 UNIT/ML VIAL 5000 UNIT SC ×2 (14:01→21:13)
[2018-10-12] MEDS: AMOXICILLIN 500 MG CAPSULE PO ×2 (14:01→21:12)
[2018-10-12] MEDS: 0.9% NaCl Peripheral Flush Adult/Peds IV (15:33)
[2018-10-12] MEDS: Bumetanide 12.5 MG in CONTAINER,EMPTY 1 BAG 2 MG CONT INF (15:33)
[2018-10-12] MEDS: Labetalol 100 MG Tablet PO (21:12)
[2018-10-12] MEDS: dilTIAZem CD 180 MG Capsule PO (21:12)
[2018-10-12] MEDS: guaiFENesin 1,200 MG Tablet 1200 MG PO (21:12)
[2018-10-13] VITALS (18 sets, daily range): BP systolic 145–171; BP diastolic 64–95; PULSE 72–99; RESP 14–21; TEMP 36.4–36.9; O2SAT 92–100
[2018-10-13] MEDS: Acetaminophen 325 MG Tablet 650 MG PO ×3 (02:16→22:37)
[2018-10-13] MEDS: AMOXICILLIN 500 MG CAPSULE PO ×3 (05:13→22:25)
[2018-10-13] MEDS: Heparin Injection (Vial) 5,000 UNIT/ML VIAL 5000 UNIT SC ×3 (05:13→22:25)
[2018-10-13 06:08] LABS: Anion Gap 10 (5-15); BUN 56 mg/dL (7-18); BUN/Creat Ratio 16.5 RATIO (10-20); Calcium,Total 9.4 mg/dL (8.5-10.1); Chloride 106 mmol/L (98-107); EST Glomerular Filtration Rate 19 mL/min (>60); Est Glom Filt Rate - Afr Amer 23 mL/min (>60); Estimated Creatinine Clearance 18.79 ml/min; Glucose 124 mg/dL (74-106); Potassium 3.9 mmol/L (3.5-5.1); Sodium Level 140 mmol/L (136-145)
[2018-10-13 06:20] LABS: Hematocrit 29.3 % (40-54); Hemoglobin 9.4 g/dl (13.0-16.5); Mean Corp Hgb Conc 32.1 g/gl (32-36); Mean Corpuscular Hgb 28.7 pg (27.0-32.0); Mean Corpuscular Volume 89.3 fL (80-94); Mean Platelet Vol. 9.6 fl (6.2-12.0); Platelet Count 192 K/mm3 (150-450); RBC Distribution Width CV 16.6 % (11.6-14.6); RBC Distribution Width SD 52.1 fl (35.1-43.9); Red Blood Count 3.28 M/mm3 (4.6-6.2); White Blood Count 8.8 K/mm3 (4.4-11.0)
[2018-10-13 06:22] LABS: Scan Indicated on CBC? Y/N NO
--- NOTE | 2018-10-13 07:55 | PCM.PN.HOSP ---
Patient Problems: Active and Suspected Problems (Last Reviewed 10/12/18 @ 11:42 by Ricci Stein MD) CHF (congestive heart failure) (Acute) Subjective: Patient seen remains on Bumex drip. Patient in minimal negative fluid balance. Consultation was placed to nephrology on admission Vital Signs Temp 98.3 F 10/13/18 07:00 Pulse 78 10/13/18 08:00 Resp 15 10/13/18 08:00 BP 161/87 H 10/13/18 08:00 Pulse Ox 100 10/13/18 08:00 Intake & Output 10/11/18 10/12/18 10/13/18 23:59 23:59 23:59 Intake Total 750 / 750 130 / 130 Output Total 1525 / 1525 950 / 950 Balance -775 / -775 -820 / -820 Weight: 89.4 kg 90 kg Intake: Oral 750 / 750 130 / 130 Output: Urine 1525 / 1525 950 / 950 Objective: GENERAL: cooperative HEENT: Atraumatic; moist oral mucosa EYES; Anicteric, Normal Conjunctiva NECK; supple, normal thyroid, RESPIRATORY: Diminished to auscultation bilaterally, CARDIOVASCULAR: Regular S1 S2, no audible murmurs GI: soft, non-tender, normoactive bowel sounds, : No Renal angle tenderness; EXTREMITIES: Bipedal edema, no clubbing, no cyanosis. MUSCULOSKELETAL: No Joint Tenderness; NEURO: Awake; no lateralizing signs. SKIN: No Rash PSYCH; Normal affect Vitals/I&O's: Vital Signs Temp Pulse Resp BP Pulse Ox 98.3 F 89 19 H 171/80 H 96 10/13/18 07:00 10/13/18 07:00 10/13/18 07:00 10/13/18 07:00 10/13/18 07:00 Oxygen Flow Rate (L/min) 2 Oxygen Delivery Method Nasal Cannula Weight: 90 kg Body Mass Index (BMI) 28.3 Finger Stick Blood Glucose 122 Intake and Output for Last 24 Hours 10/11/18 10/12/18 10/13/18 23:59 23:59 23:59 Intake Total 750 / 750 130 / 130 Output Total 1525 / 1525 950 / 950 Balance -775 / -775 -820 / -820 Laboratory Results 10/12/18 09:10: WBC 9.6, RBC 3.37 L, Hgb 9.7 L, Hct 30.2 L, MCV 89.6, MCH 28.8, MCHC 32.1, RDW 16.9 H, RDW Differential 56.0 H, Plt Count 175, MPV 9.0, Immature Gran % (Auto) 0.100, Neut % (Auto) 85.2 H, Lymph % (Auto) 4.5 L, [place] % (Auto) 8.1, Eos % (Auto) 1.9, Baso % (Auto) 0.2, Absolute Neuts (auto) 8.2 H, Absolute Lymphs (auto) 0.43 L, Total Counted Not Reportable, Differential Comment , Platelet Estimate ADEQUATE, RBC Morphology NORM C+C 10/12/18 09:10: Sodium 138, Potassium 4.1, Chloride 105, Carbon Dioxide 26.0, Anion Gap 7, BUN 55 H, Creatinine 3.39 H, Estim Creat Clear Calc 18.84, Est GFR (MDRD) Af Amer 23 L, Est GFR (MDRD) Non-Af 19 L, BUN/Creatinine Ratio 16.2, Glucose 129 H, Calcium 9.3, Troponin I 0.015 10/12/18 09:10: B-Natriuretic Peptide 904.2 H 10/12/18 12:00: Troponin I 0.020 10/12/18 15:15: Troponin I 0.016 10/13/18 05:28: WBC 8.8, RBC 3.28 L, Hgb 9.4 L, Hct 29.3 L, MCV 89.3, MCH 28.7, MCHC 32.1, RDW 16.6 H, RDW Differential 52.1 H, Plt Count 192, MPV 9.6 10/13/18 05:28: Sodium 140, Potassium 3.9, Chloride 106, Carbon Dioxide 24.0, Anion Gap 10, BUN 56 H, Creatinine 3.40 H, Estim Creat Clear Calc 18.79, Est GFR (MDRD) Af Amer 23 L, Est GFR (MDRD) Non-Af 19 L, BUN/Creatinine Ratio 16.5, Glucose 124 H, Calcium 9.4, Magnesium 2.0 Current Medications Acetaminophen (Tylenol) 650 mg PO Q6H PRN PRN PRN Reason: Non-cardiac pain (mod-severe) Last Admin: 10/13/18 02:16 Dose: 650 mg Albuterol Sulfate (Ventolin Aerosols) 2.5 mg INHALATION Q4H PRN PRN PRN Reason: SHORTNESS OF BREATH Allopurinol (Zyloprim) 100 mg PO DAILY@0800 [facility] Amoxicillin (Amoxil) 500 mg PO TID@0600,1400,2200 [facility] Last Admin: 10/13/18 05:13 Dose: 500 mg Ascorbic Acid (Vitamin C) 1,000 mg PO DAILY [facility] Cholecalciferol (Vitamin D) 2,000 unit PO DAILY [facility] Diltiazem HCl (Cardizem Cd) 180 mg PO BID [facility] Last Admin: 10/12/18 21:12 Dose: 180 mg Docusate Sodium (Colace) 100 mg PO DAILY [facility] Guaifenesin (Mucinex) 1,200 mg PO BID [facility] Last Admin: 10/12/18 21:12 Dose: 1,200 mg Heparin Sodium (Porcine) (Heparin Na) 5,000 unit SC Q8 [facility] Last Admin: 10/13/18 05:13 Dose: 5,000 unit Hydralazine HCl (Apresoline Iv) 10 mg IV Q4H PRN PRN PRN Reason: SBP > 160 Bumetanide 12.5 mg/ (Miscellaneous Information) 50 mls @ 2 mls/hr CONT INF .Q25H [facility] Last Admin: 10/12/18 15:33 Dose: 2 mls/hr Isosorbide Mononitrate (Imdur) 60 mg PO DAILY [facility] Labetalol HCl (Trandate) 100 mg PO BID [facility] Last Admin: 10/12/18 21:12 Dose: 100 mg Magnesium Hydroxide (Milk Of Magnesia) 30 ml PO DAILY PRN PRN Reason: Constipation Multivitamins/Minerals (Multivitamin With Minerals) 1 tablet PO DAILY@0800 [facility] Polysaccharide Iron Complex (Ferrex 150) 150 mg PO DAILY [facility] Sodium Chloride () 5 - 15 ml IV UD PRN PRN Reason: SALINE FLUSH Last Admin: 10/12/18 15:33 Dose: 10 ml Medical Necessity - Tobacco Use Smoking Status: Former smoker Assessment/Plan All Active Problems (Last Reviewed 10/12/18 @ 11:42 by Ricci Stein MD) CHF (congestive heart failure) (Acute) Influenza A (Acute) Heart failure with preserved ejection fraction (Acute) Cancer of right kidney (Resolved) Pleural cavity effusion (Resolved) VINOD (acute kidney injury) (Resolved) Patient is a 77-year-old gentleman with multiple comorbidities presented with exertional dyspnea and orthopnea and assessment of acute congestive heart failure made admitted to a monitored bed for further management 1. Acute diastolic congestive heart failure and echo obtained on 07/14/2018 demonstrated ejection fraction of 59%. Patient admitted to monitored bed placed on fluid restriction, strict input and output, daily weight as well as IV Bumex 2. Chronic kidney disease stage IV patient has underlying history of solitary kidney following surgery for renal cell carcinoma. Consultation was placed to nephrology on admission 3. 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 History of aortic valve stenosis status post aortic valve replacement with bioprosthetic material 5. History of renal cell carcinoma status post nephrectomy on January 13, 2016 at [facility] 6. CAD with previous CABG. Had triple bypass in January 2016 at [facility] in [place] 7. Recent hospitalization for acute influenza A infection 9. Diabetes mellitus type 2 with complications including diabetic nephropathy. Currently managed on diet patient was previously on Starlix 10. Hypertension-blood pressure controlled, home medications continued with dose adjustment as needed 10. DVT prophylaxis SC heparin Code Visit Inpatient E&M: 13394 [facility] Hosp L3
[2018-10-13] MEDS: Multivitamins,Ther W-Minerals Tablet 1 TABLET PO (08:42)
[2018-10-13] MEDS: guaiFENesin 1,200 MG Tablet 1200 MG PO ×2 (08:43→22:30)
[2018-10-13] MEDS: Allopurinol 100 MG Tablet PO (08:43)
[2018-10-13] MEDS: Iron Polysaccharide Complex 150 MG CAPSULE PO (08:43)
[2018-10-13] MEDS: dilTIAZem CD 180 MG Capsule PO ×2 (08:43→22:25)
[2018-10-13] MEDS: Docusate Sodium 100 MG Capsule PO (08:43)
[2018-10-13] MEDS: Isosorbide Mononitrate 60 MG Tablet PO (08:43)
[2018-10-13] MEDS: Labetalol 100 MG Tablet PO ×2 (08:44→22:25)
[2018-10-13] MEDS: Ascorbic Acid 500 MG Tablet 1000 MG PO (08:44)
--- NOTE | 2018-10-13 11:03 | CASEMGMT ---
CM let pt know on the last admission that pt's forms are not on the chart, and pt was going to ask to bring in the forms. MONIK Cutler
--- NOTE | 2018-10-13 11:08 | CASEMGMT ---
KAREN CHAVEZ Readmission Chart Review: Pt initially admitted 09/28-09/30/18 for Heart failure and Influenza A. See KAREN CHAVEZ assessment completed by Dudley JONES CM on 09/29/18. Pt did not qualify for home oxygen at discharge. Pt readmitted thru the ED 10/12/18 for dyspnea/acute diastolic CHF and is still positive for influenza A. Pt was already evaluated by PT/OT on 10/12/18 they state that pt has no need for therapy at this time and that pt's oxygen saturation stayed good during ambulation. CM to follow for any further discharge planning/needs. [place] KAREN CHAVEZ
--- NOTE | 2018-10-13 12:49 | PCM.PN.REN ---
Patient Problems: Active and Suspected Problems (Last Reviewed 10/12/18 @ 11:42 by Ricci Stein MD) CHF (congestive heart failure) (Acute) Subjective: 77 year old male with h/o nephrectomy due to RCC, CKD stage 4, CAD s/p CABG Pt presented with progressive SOB . Chest x ray showed mild pulmonary vascular congestion. Pt was admitted with CHF exacerbation and started on bumex drip. Pt made 1./5 L UOP yesterday. Cr remained stable at baseline for the last 24 hours Pt denied any urinary difficulties. He said he is emptying his bladder. No NSAIDs use. Not on ACEI or ARB. No recent UTI. No IV contrast exposure. Pt said he is following with urology clinic for possible tumor in the other kidney ROS: 12 system review is negative except for exertional dyspnea - Physical Exam General: Alert, Oriented x3 HEENT: Atraumatic Oral: Moist Mucosa Neck: Supple, No JVD Lungs: - - B/L lungs bases crackles Cardiovascular: Regular rate, Regular Rhythm, Normal S1, Normal S2 Abdomen: Bowel Sounds Present, Soft, Non Tender, Non-Distended Extremities: No clubbing, No cyanosis, No edema Skin: No rashes Musculoskeletal: No Tenderness to Palpation of Joints or Extremities Lymphatic: No Cervical, Supraclavicular, or Inguinal Adenopathy Neurological: Cranial nerves II-XII grossly intact, Neuro grossly intact Psych/Mental Status: Appropriate Vital Signs Temp Pulse Resp BP Pulse Ox 97.7 F L 72 16 149/85 H 92 10/13/18 10:15 10/13/18 10:59 10/13/18 10:15 10/13/18 10:15 10/13/18 10:15 Oxygen Flow Rate (L/min) 2 Oxygen Delivery Method Room Air Weight: 90 kg Body Mass Index (BMI) 28.3 Finger Stick Blood Glucose 122 Intake and Output for Last 24 Hours 10/11/18 10/12/18 10/13/18 23:59 23:59 23:59 Intake Total 750 / 750 530 / 530 Output Total 1525 / 1525 1525 / 1525 Balance -775 / -775 -995 / -995 Laboratory Tests Past 24 Hrs 10/12/18 10/12/18 10/13/18 12:00 15:15 05:28 WBC 8.8 RBC 3.28 L Hgb 9.4 L Hct 29.3 L MCV 89.3 MCH 28.7 MCHC 32.1 RDW 16.6 H RDW Differential 52.1 H Plt Count 192 MPV 9.6 Sodium Potassium Chloride Carbon Dioxide Anion Gap BUN Creatinine Estim Creat Clear Calc Est GFR (MDRD) Af Amer Est GFR (MDRD) Non-Af BUN/Creatinine Ratio Glucose Calcium Magnesium Troponin I 0.020 0.016 10/13/18 05:28 WBC RBC Hgb Hct MCV MCH MCHC RDW RDW Differential Plt Count MPV Sodium 140 Potassium 3.9 Chloride 106 Carbon Dioxide 24.0 Anion Gap 10 BUN 56 H Creatinine 3.40 H Estim Creat Clear Calc 18.79 Est GFR (MDRD) Af Amer 23 L Est GFR (MDRD) Non-Af 19 L BUN/Creatinine Ratio 16.5 Glucose 124 H Calcium 9.4 Magnesium 2.0 Troponin I Medical Necessity - Tobacco Use Smoking Status: Former smoker Assessment/Plan All Active Problems (Last Reviewed 10/12/18 @ 11:42 by Ricci Stein MD) CHF (congestive heart failure) (Acute) Influenza A (Acute) Heart failure with preserved ejection fraction (Acute) Cancer of right kidney (Resolved) Pleural cavity effusion (Resolved) VINOD (acute kidney injury) (Resolved) 1- CKD stage 4 from solitary kidney. Pt had h/o nephrectomy due to RCC Baseline Cr ~ 3.5 mg/dL. kidney function remains stable Will check UA along with PTH, 25 OH VD 2- HTN: BP is well controlled. please avoid ACEI/ARB 3- Anemia: Hgb is 9.4 Will check iron storage study 4- CHF. most probably related to decreased solute clearance due to advanced kidney dz I will switch Bumex drip to bumex 2 mg IV BID Continue low salt diet and limited fluid intake of 1200 cc /daily Thank you for the consult. Renal team will continue to follow Please call if any question at [phone] D/W Patient and his and with Dr. Sarita SOTO MD
[2018-10-13 14:53] LABS: Ferritin 277 ng/mL (26-388); Iron 33 ug/dL (65-175); Iron Binding Capacity,Total 233 ug/dL (250-450); PERCENT IRON SATURATION 14.2 % (15.0-55.0)
[2018-10-13 15:29] LABS: PTHIN 36.2 pg/mL (18.4-80.1)
[2018-10-13 16:38] LABS: Bacteria 0 SEEN /hpf (None Seen); Mucous, Urine 0 SEEN /hpf (<or=2+); Red Blood Cells-Urine 0 SEEN /hpf (0-5); Squamous Epithelial Cells - UA 0 SEEN /hpf (0-5); White Blood Cells 0 SEEN /hpf (0-5)
[2018-10-13 16:40] LABS: Color, Urine Yellow (Yellow); Glucose, Dipstick Normal (Normal); Ketone-Dipstick Negative (Negative); Leukocyte Esterase-Dipstick Negative /ul (Negative); Nitrite-Dipstick Negative (Negative); Occult Blood-Urine Negative /ul (Negative); Protein-Dipstick 100 mg/dl (Negative); Specific Gravity, Urine 1.015 (1.002-1.030); Urine Bilirubin Dipstick Negative (Negative); Urine Clarity Clear (Clear); Urine Urobilinogen Normal (Normal)
[2018-10-13 17:55] LABS: Vitamin D,25 Hydroxy 49.1 ng/mL (29.95-100.01)
[2018-10-13] MEDS: Bumetanide 1 MG/4 ML Vial 2 MG IV (18:40)
[2018-10-14 03:01] VITALS: PULSE 67
[2018-10-14 04:20] VITALS: BP 143/75; PULSE 57; RESP 20; TEMP 36.7; O2SAT 95
[2018-10-14] MEDS: Heparin Injection (Vial) 5,000 UNIT/ML VIAL 5000 UNIT SC (05:10)
[2018-10-14] MEDS: AMOXICILLIN 500 MG CAPSULE PO ×2 (05:10→14:11)
[2018-10-14 06:28] LABS: Hematocrit 32.3 % (40-54); Hemoglobin 10.6 g/dl (13.0-16.5); Mean Corp Hgb Conc 32.8 g/gl (32-36); Mean Corpuscular Hgb 29.2 pg (27.0-32.0); Mean Platelet Vol. 9.2 fl (6.2-12.0); Platelet Count 210 K/mm3 (150-450); RBC Distribution Width CV 16.5 % (11.6-14.6); RBC Distribution Width SD 52.8 fl (35.1-43.9); Red Blood Count 3.63 M/mm3 (4.6-6.2); Scan Indicated on CBC? Y/N NO; White Blood Count 6.6 K/mm3 (4.4-11.0)
[2018-10-14 06:45] LABS: Anion Gap 11 (5-15); BUN 59 mg/dL (7-18); BUN/Creat Ratio 15.8 RATIO (10-20); Calcium,Total 9.6 mg/dL (8.5-10.1); Chloride 104 mmol/L (98-107); Creatinine, Serum 3.73 mg/dL (0.70-1.30); EST Glomerular Filtration Rate 17 mL/min (>60); Est Glom Filt Rate - Afr Amer 20 mL/min (>60); Estimated Creatinine Clearance 17.12 ml/min; Glucose 128 mg/dL (74-106); Potassium 3.7 mmol/L (3.5-5.1); Sodium Level 141 mmol/L (136-145)
[2018-10-14 07:29] VITALS: PULSE 81
[2018-10-14] MEDS: Multivitamins,Ther W-Minerals Tablet 1 TABLET PO (08:15)
[2018-10-14] MEDS: Bumetanide 1 MG/4 ML Vial 2 MG IV (08:16)
[2018-10-14] MEDS: Allopurinol 100 MG Tablet PO (08:16)
[2018-10-14] MEDS: dilTIAZem CD 180 MG Capsule PO (08:16)
[2018-10-14] MEDS: Isosorbide Mononitrate 60 MG Tablet PO (08:17)
[2018-10-14] MEDS: Docusate Sodium 100 MG Capsule PO (08:17)
[2018-10-14] MEDS: guaiFENesin 1,200 MG Tablet 1200 MG PO (08:17)
[2018-10-14] MEDS: Iron Polysaccharide Complex 150 MG CAPSULE PO (08:17)
[2018-10-14] MEDS: Labetalol 100 MG Tablet PO (08:17)
[2018-10-14] MEDS: Ascorbic Acid 500 MG Tablet 1000 MG PO (08:18)
[2018-10-14 10:10] VITALS: BP 134/71; PULSE 67; RESP 18; TEMP 36.9; O2SAT 97
--- NOTE | 2018-10-14 11:07 | DCINST_ITS ---
- Discharge Diagnoses Current Active Problems: Current Active and Chronic Problems (Last Reviewed 10/12/18 @ 11:42 by Ricci Stein MD) CHF (congestive heart failure) (Acute) You will use the following diet at home:: No restrictions Your food should be the consistency of: Regular Your liquids should be the consistency of: Regular/Thin Discharge Activity: Return to Normal Activity Weight Bearing Status: Full weight bearing Allergies/Adverse Reactions: Allergies losartan potassium [From Cozaar] Allergy (Severe, Verified 10/12/18 08:35) Other valsartan [From Diovan HCT] Allergy (Severe, Verified 10/12/18 08:35) Other amlodipine besylate [From Norvasc] Allergy (Verified 10/12/18 08:35) Other doxazosin mesylate [From Cardura] Allergy (Verified 10/12/18 08:35) Other furosemide [From Lasix] Allergy (Verified 10/12/18 08:35) Other states causes urinary system to shut down and he can't urinate hydrochlorothiazide Allergy (Verified 10/12/18 08:35) Other metoprolol succinate [From Toprol XL] Allergy (Verified 10/12/18 08:35) Other simvastatin Allergy (Verified 10/12/18 08:35) Other atenolol Adverse Reaction (Severe, Verified 10/12/18 08:35) Potential to cause CVA? losartan [From Hyzaar] Adverse Reaction (Severe, Verified 10/12/18 08:35) Ineffective oxycodone [From OxyIR] Adverse Reaction (Severe, Verified 10/12/18 08:35) tremors SEVERE CONFUSION acetaminophen [From Vicodin] Adverse Reaction (Verified 10/12/18 08:35) Other hydrocodone [From Vicodin] Adverse Reaction (Verified 10/12/18 08:35) Other vicodin Adverse Reaction (Severe, Uncoded 10/12/18 08:35) Other SEVERE CONFUSION Hydrogenated Vegetable Oil Adverse Reaction (Uncoded 10/12/18 08:35) Upset Stomach Medications to take at Discharge diltiazem ER (XR/XT) 180 mg capsule,extended release 24 hr, controlled 180 mg PO BID #180 cap 04/20/18 isosorbide mononitrate ER 60 mg tablet,extended release 24 hr 60 mg PO DAILY #90 tab 04/20/18 labetalol 100 mg tablet 100 mg PO BID #180 tab 04/20/18 Allopurinol 100 mg PO DAILY 09/28/18 Amoxicillin [Amoxil] 500 mg PO TID 09/28/18 Docusate Sodium [Colace] 100 mg PO DAILY 09/28/18 Iron Polysaccharide Complex [Ferrex 150] 150 mg PO DAILYCM 09/28/18 Multivitamin with Minerals [Multiple Vitamin] 1 tab PO DAILY 09/28/18 Albuterol Inhaler [Ventolin Hfa] 1 - 2 puff INHALATION Q4H PRN PRN #1 inhaler 09/30/18 Guaifenesin [Mucinex] 1,200 mg PO BID #14 tablet 09/30/18 Ascorbic Acid [C-1000] 1,000 mg PO DAILY 10/12/18 Cholecalciferol (VIT D3) [Vitamin D3] 2,000 unit PO DAILY 10/12/18 Bumetanide [Bumex] 2 mg PO BID #60 tablet 10/14/18 The following prescriptions were given: Bumetanide [Bumex] 2 mg PO BID #60 tablet Primary Care Physician: Dejuan Catherine DO [Primary Care Provider] - Please follow up with your Primary Care Physician in: in 2 weeks Test Results: Test results from this visit will be discussed in further detail at your follow- up appointment, if applicable. Please Follow Up With: Juan Carlos Billings MD When: as scheduled
--- NOTE | 2018-10-14 11:38 | CASEMGMT ---
This RN CM to room to speak with pt regarding discharge plan at this time. This KAREN CHAVEZ offered CCN to pt at this time but pt states lives in [place] and per Miguel, CCN does not go to [place] at this time. Pt does state that has concerns with diet/fluid restrictions but she will not be here until after noon sometime. Christine RN aware and states with have enrober come speak with prior to discharge. Pt voices no further questions/concerns/needs at this time. SStjenifer JONES CM
--- NOTE | 2018-10-14 12:53 | PCM.DC.SUM ---
Discharge Date and Diagnosis Date of Admission: 10/12/18 Date of Discharge: 10/14/18 - Primary Discharge Diagnosis Active and Suspected Problems (Last Reviewed 10/12/18 @ 11:42 by Ricci Stein MD) 1. Acute diastolic CHF 2. Chronic kidney disease stage IV with solitary kidney secondary to history of renal cell carcinoma status post right nephrectomy 3. Valvular heart disease, history of aortic valve stenosis status post aortic valve replacement 4. Type 2 diabetes mellitus 5. Anemia of chronic disease/iron deficiency anemia 6. CAD status post CABG 7. Hypertension 8. 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 - Secondary Discharge Diagnosis Chronic Problems (Last Reviewed 10/12/18 @ 11:42 by Ricci Stein MD) Lung nodules (Chronic) History of renal cell cancer (Chronic) Left renal mass (Chronic) Presence of stent in coronary artery (Chronic) PTCA of RCA intracoronary stent January 2009 (bare metal) Premature atrial contractions (Chronic) Presence of aortocoronary bypass graft (Chronic) CABG X 4, JOE to LAD, SVG-D1 sequential - PDA1 & PDA 2 Paroxysmal atrial fibrillation (Chronic) H/O aortic valve replacement (Chronic) 07/25/15 @ [facility] Premature ventricular contractions (Chronic) 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 Mild CHF with a left basilar atelectasis and/or infiltrate. Blunting of both costophrenic angles. Electronically Signed: Marquis Luna, at 9:25 EDT , Service support , Dr. Billings- Nephrology Operations: None Procedures: None Summary of Care Provided: The patient is a 77 year old M admitted 10/12/18 due to shortness of breath. 1. Acute diastolic CHF-chest x-ray on admission with mild CHF. BNP 904. Recent echo 07/14/2018 with EF 59%. Patient treated with IV Bumex. Discharge on oral Bumex 2 mg twice daily. Shortness of breath improved. Oxygen remained stable on room air. Follow-up with cardiology, Dr. Frye as scheduled 10/19/2018. Nutrition consulted prior to discharge for education regarding low-sodium diet and fluid restriction of 1200 cc daily. 2. Chronic kidney disease stage IV with solitary kidney secondary to history of renal cell carcinoma status post right nephrectomy-stable, nephrology consulted during admission. Continue outpatient follow-up. 3. Valvular heart disease, history of aortic valve stenosis status post aortic valve replacement 4. Type 2 diabetes mellitus-not on regimen. Hemoglobin A1c 09/03/2017 5.4%. Continue carb controlled diet. 5. Anemia of chronic disease/iron deficiency anemia-stable. Continue iron supplementation. 6. CAD status post CABG-continue outpatient follow-up with cardiology. 7. Hypertension-stable, continue home labetalol, Cardizem, isosorbide regimen. Avoid SAKINA/ARB due to #2. 8. 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 Physical assessment as noted above. Patient is stable for discharge with follow up recommendations as noted above. This patient was seen by SAMEER Downing under the supervision of Dr. South. - Physical Exam General: Alert, Oriented x3, Cooperative HEENT: Atraumatic, PERRLA, EOMI, Normocephalic Neck: Supple, No JVD, Negative Carotid Bruits Lungs: Clear to auscultation, Normal air movement Cardiovascular: Regular rate, Regular Rhythm, Normal S1, Normal S2, No murmurs Abdomen: Bowel Sounds Present, Soft, Non Tender, Non-Distended Extremities: No clubbing, No cyanosis, No edema, Capillary Refill Less than 3 Seconds Skin: No rashes, No breakdown Musculoskeletal: No Tenderness to Palpation of Joints or Extremities Neurological: Cranial nerves II-XII grossly intact, Neuro grossly intact Psych/Mental Status: Normal Affect, Appropriate Vital Signs Temp Pulse Resp BP Pulse Ox 98.4 F 67 18 134/71 H 97 10/14/18 10:10 10/14/18 10:10 10/14/18 10:10 10/14/18 10:10 10/14/18 10:10 Oxygen Flow Rate (L/min) 2 Oxygen Delivery Method Room Air Weight: 193 lb 1.999 oz Body Mass Index (BMI) 28.3 Finger Stick Blood Glucose 122 Intake and Output for Last 24 Hours 10/12/18 10/13/18 10/14/18 23:59 23:59 23:59 Intake Total 750 / 750 870 / 870 500 / 500 Output Total 1525 / 1525 2600 / 2600 1300 / 1300 Balance -775 / -775 -1730 / -1730 -800 / -800 Laboratory Tests Past 24 Hrs 10/13/18 10/13/18 10/13/18 05:28 05:28 16:25 WBC RBC Hgb Hct MCV MCH MCHC RDW RDW Differential Plt Count MPV Sodium Potassium Chloride Carbon Dioxide Anion Gap BUN Creatinine Estim Creat Clear Calc Est GFR (MDRD) Af Amer Est GFR (MDRD) Non-Af BUN/Creatinine Ratio Glucose Calcium Iron 33 L TIBC 233 L Iron Saturation 14.2 L Ferritin 277 Vitamin D 25-Hydroxy PTH Intact 36.2 Urine Color Yellow Urine Clarity Clear Urine pH 6.0 Ur Specific [place] 1.015 Urine Protein 100 H Urine Glucose (UA) Normal Urine Ketones Negative Urine Occult Blood Negative Urine Nitrite Negative Urine Bilirubin Negative Urine Urobilinogen Normal Ur Leukocyte Esterase Negative Urine RBC 0 SEEN Urine WBC 0 SEEN Ur Squamous Epith Cells 0 SEEN Urine Bacteria 0 SEEN Urine Mucus 0 SEEN 10/13/18 10/14/18 10/14/18 16:32 06:02 06:02 WBC 6.6 RBC 3.63 L Hgb 10.6 L Hct 32.3 L MCV 89.0 MCH 29.2 MCHC 32.8 RDW 16.5 H RDW Differential 52.8 H Plt Count 210 MPV 9.2 Sodium 141 Potassium 3.7 Chloride 104 Carbon Dioxide 26.0 Anion Gap 11 BUN 59 H Creatinine 3.73 H Estim Creat Clear Calc 17.12 Est GFR (MDRD) Af Amer 20 L Est GFR (MDRD) Non-Af 17 L BUN/Creatinine Ratio 15.8 Glucose 128 H Calcium 9.6 Iron TIBC Iron Saturation Ferritin Vitamin D 25-Hydroxy 49.1 PTH Intact Urine Color Urine Clarity Urine pH Ur Specific [place] Urine Protein Urine Glucose (UA) Urine Ketones Urine Occult Blood Urine Nitrite Urine Bilirubin Urine Urobilinogen Ur Leukocyte Esterase Urine RBC Urine WBC Ur Squamous Epith Cells Urine Bacteria Urine Mucus Discharge Activity: Return to Normal Activity Weight Bearing Status: Full weight bearing Home Medications: Medications to take at Discharge diltiazem ER (XR/XT) 180 mg capsule,extended release 24 hr, controlled 180 mg PO BID #180 cap 04/20/18 isosorbide mononitrate ER 60 mg tablet,extended release 24 hr 60 mg PO DAILY #90 tab 04/20/18 labetalol 100 mg tablet 100 mg PO BID #180 tab 04/20/18 Allopurinol 100 mg PO DAILY 09/28/18 Amoxicillin [Amoxil] 500 mg PO TID 09/28/18 Docusate Sodium [Colace] 100 mg PO DAILY 09/28/18 Iron Polysaccharide Complex [Ferrex 150] 150 mg PO DAILYCM 09/28/18 Multivitamin with Minerals [Multiple Vitamin] 1 tab PO DAILY 09/28/18 Albuterol Inhaler [Ventolin Hfa] 1 - 2 puff INHALATION Q4H PRN PRN #1 inhaler 09/30/18 Guaifenesin [Mucinex] 1,200 mg PO BID #14 tablet 09/30/18 Ascorbic Acid [C-1000] 1,000 mg PO DAILY 10/12/18 Cholecalciferol (VIT D3) [Vitamin D3] 2,000 unit PO DAILY 10/12/18 Bumetanide [Bumex] 2 mg PO BID #60 tablet 10/14/18 Following Prescrptions Were Given to Patient: Bumetanide [Bumex] 2 mg PO BID #60 tablet Primary Care Physician: Dejuan Catherine DO [Primary Care Provider] - Please follow up with your Primary Care Physician in: in 2 weeks Please Follow Up With: Juan Carlos Billings MD When: as scheduled Please Follow Up With: Ravi Frye MD When: As scheduled, 10/19/18 Please Follow Up With: Asa Fong MD When: As schedule, 11/03/18 Disposition: Home Minutes spent on discharge:: 35 Patient Condition:: Stable Medical Necessity - Tobacco Use Smoking Status: Former smoker Meaningful Use Info Meaningful Use Diagnoses (Choose all that apply): CHF - CHF SAKINA/ARB ordered at discharge?: No Reason SAKINA/ARB not ordered?: Worsening renal dysfunctn Documented LVEF (%): 59
--- NOTE | 2018-10-14 13:30 | PN.RENAL_ITS ---
Subjective: Pt breathing is better. No nausea No vomiting. No CP - Physical Exam General: Alert, Oriented x3 HEENT: Atraumatic Oral: Moist Mucosa Neck: Supple, No JVD Lungs: Clear to auscultation, Normal air movement, No rhonchi, No wheeze Cardiovascular: Regular rate, Regular Rhythm, Normal S1, Normal S2 Abdomen: Bowel Sounds Present, Soft, Non Tender, Non-Distended Extremities: No clubbing, No cyanosis, No edema Skin: No rashes Musculoskeletal: No Tenderness to Palpation of Joints or Extremities Lymphatic: No Cervical, Supraclavicular, or Inguinal Adenopathy Neurological: Cranial nerves II-XII grossly intact, Neuro grossly intact Psych/Mental Status: Appropriate Vital Signs Temp Pulse Resp BP Pulse Ox 98.4 F 67 18 134/71 H 97 10/14/18 10:10 10/14/18 10:10 10/14/18 10:10 10/14/18 10:10 10/14/18 10:10 Oxygen Flow Rate (L/min) 2 Oxygen Delivery Method Room Air Weight: 87.6 kg Body Mass Index (BMI) 28.3 Finger Stick Blood Glucose 122 Intake and Output for Last 24 Hours 10/12/18 10/13/18 10/14/18 23:59 23:59 23:59 Intake Total 750 / 750 870 / 870 500 / 500 Output Total 1525 / 1525 2600 / 2600 1300 / 1300 Balance -775 / -775 -1730 / -1730 -800 / -800 Laboratory Tests Past 24 Hrs 10/13/18 10/13/18 10/13/18 05:28 05:28 16:25 WBC RBC Hgb Hct MCV MCH MCHC RDW RDW Differential Plt Count MPV Sodium Potassium Chloride Carbon Dioxide Anion Gap BUN Creatinine Estim Creat Clear Calc Est GFR (MDRD) Af Amer Est GFR (MDRD) Non-Af BUN/Creatinine Ratio Glucose Calcium Iron 33 L TIBC 233 L Iron Saturation 14.2 L Ferritin 277 Vitamin D 25-Hydroxy PTH Intact 36.2 Urine Color Yellow Urine Clarity Clear Urine pH 6.0 Ur Specific [place] 1.015 Urine Protein 100 H Urine Glucose (UA) Normal Urine Ketones Negative Urine Occult Blood Negative Urine Nitrite Negative Urine Bilirubin Negative Urine Urobilinogen Normal Ur Leukocyte Esterase Negative Urine RBC 0 SEEN Urine WBC 0 SEEN Ur Squamous Epith Cells 0 SEEN Urine Bacteria 0 SEEN Urine Mucus 0 SEEN 10/13/18 10/14/18 10/14/18 16:32 06:02 06:02 WBC 6.6 RBC 3.63 L Hgb 10.6 L Hct 32.3 L MCV 89.0 MCH 29.2 MCHC 32.8 RDW 16.5 H RDW Differential 52.8 H Plt Count 210 MPV 9.2 Sodium 141 Potassium 3.7 Chloride 104 Carbon Dioxide 26.0 Anion Gap 11 BUN 59 H Creatinine 3.73 H Estim Creat Clear Calc 17.12 Est GFR (MDRD) Af Amer 20 L Est GFR (MDRD) Non-Af 17 L BUN/Creatinine Ratio 15.8 Glucose 128 H Calcium 9.6 Iron TIBC Iron Saturation Ferritin Vitamin D 25-Hydroxy 49.1 PTH Intact Urine Color Urine Clarity Urine pH Ur Specific [place] Urine Protein Urine Glucose (UA) Urine Ketones Urine Occult Blood Urine Nitrite Urine Bilirubin Urine Urobilinogen Ur Leukocyte Esterase Urine RBC Urine WBC Ur Squamous Epith Cells Urine Bacteria Urine Mucus Medical Necessity - Tobacco Use Smoking Status: Former smoker Assessment/Plan All Active Problems (Last Reviewed 10/12/18 @ 11:42 by Ricci Stein MD) CHF (congestive heart failure) (Acute) Influenza A (Acute) Heart failure with preserved ejection fraction (Acute) Cancer of right kidney (Resolved) Pleural cavity effusion (Resolved) VINOD (acute kidney injury) (Resolved) 1- CKD stage 4 from solitary kidney and nephrosclerosis. Pt had h/o nephrectomy due to RCC UA showed 100 protein Cr increased to 3.7 mg/dL today Pt can be discharged home with bumex 2 mg PO daily 2- HTN: BP is well controlled. please avoid ACEI/ARB 3- Anemia: Hgb is >10 . pt follows with hematology clinic 4- CHF. most probably related to decreased solute clearance due to advanced kidney dz Better. pt can be discharged home with Bumex 2 mg PO daily Continue low salt diet and limited fluid intake of 1000 cc /daily Renal team will continue to follow Please call if any question at [phone] LUC SOTO MD
--- NOTE | 2018-10-15 14:23 | CASEMGMT ---
KAREN CHAVEZ Discharge Follow-Up Phone Call. Sonia: Chris Strata: 3 Discharge Date: 10/14/18 Adm Dx: Dyspnea Call to pt to inquire about how he has been doing since being discharged from the hospital. Pt states I slept like you can't belive last night when I got in my bed. Pt states he is doing well and has not had any difficulty breathing. He states his was taking care of making an appt with PCP. He denies having any questions about the discharge instructions or medications and states he did get the Bumex. Discussed option of Out-pt Software Quality Assurance Engineer Referral and he states he does not know if his would be interested in that or not but that he will talk to his about it when she gets home. Pt given REHABILITATION MANAGER CM'S # and asked him to call her if his would like to talk with Software Quality Assurance Engineer for further teaching. Pt voiced appreciation for the call. He denies having any questions or concerns at this time. KAREN CHAVEZ thanked pt for choosing [facility]. Liliam STARKEY RN, CM
== END 2018-10-14 16:01 | disposition home or self-care (01) | DRG 291 ==
LOC: ED 10:12 → PCU 10-13 01:45
PROVIDERS: Internal Medicine Nephrology; Admitting Provider Internal Medicine; Emergency Provider Emergency Medicine; Family Provider Family Medicine; PCP Family Medicine; Visit Provider Internal Medicine
DX: I13.0 Hypertensive heart and chronic kidney disease with heart failure and stage 1 through stage 4 chronic kidney disease, or unspecified chronic kidney disease (principal); I50.31 Acute diastolic (congestive) heart failure; N18.4 Chronic kidney disease, stage 4 (severe); E11.22 Type 2 diabetes mellitus with diabetic chronic kidney disease; I25.10 Atherosclerotic heart disease of native coronary artery without angina pectoris; D50.9 Iron deficiency anemia, unspecified; Z95.2 Presence of prosthetic heart valve; Z95.1 Presence of aortocoronary bypass graft; Z85.528 Personal history of other malignant neoplasm of kidney; Z90.5 Acquired absence of kidney; Z87.891 Personal history of nicotine dependence; Z79.2 Long term (current) use of antibiotics; Z87.39 Personal history of other diseases of the musculoskeletal system and connective tissue
CPT/HCPCS: 36415; 71045; 80048; 81001; 82306; 82728; 83540; 83550; 83735; 83880; 83970; 84484; 85025; 85027; 93005; 97161; 97165; 97802; 99285; A4216

== ENCOUNTER → 2018-10-18 | Outpatient (CLI) | payer MEDICARE, OTHER, SELFPAY ==
[2018-10-12 11:36] VITALS: BMI 28.3
[2018-10-18 14:15] LABS: Anion Gap 6 (5-15); BUN 56 mg/dL (7-18); BUN/Creat Ratio 15.3 RATIO (10-20); Chloride 103 mmol/L (98-107); Creatinine, Serum 3.65 mg/dL (0.70-1.30); EST Glomerular Filtration Rate 17 mL/min (>60); Est Glom Filt Rate - Afr Amer 21 mL/min (>60); Glucose 102 mg/dL (74-106); Potassium 3.9 mmol/L (3.5-5.1); Sodium Level 138 mmol/L (136-145)
== END | disposition home or self-care (01) ==
LOC: LAB 12:56
PROVIDERS: Family Provider Family Medicine; PCP Family Medicine; Referring Provider Internal Medicine Nephrology; Visit Provider Internal Medicine Nephrology
DX: N18.4 Chronic kidney disease, stage 4 (severe) (principal)
CPT/HCPCS: 36415; 80048

== ENCOUNTER → 2018-10-26 | Outpatient (CLI) | payer MEDICARE, OTHER, SELFPAY ==
[2018-10-19 14:14] VITALS: BMI 27.5
[2018-10-26 15:30] LABS: Anion Gap 9 (5-15); BUN 66 mg/dL (7-18); BUN/Creat Ratio 17.6 RATIO (10-20); Calcium,Total 9.4 mg/dL (8.5-10.1); Chloride 102 mmol/L (98-107); Creatinine, Serum 3.75 mg/dL (0.70-1.30); EST Glomerular Filtration Rate 17 mL/min (>60); Est Glom Filt Rate - Afr Amer 20 mL/min (>60); Glucose 137 mg/dL (74-106); Potassium 3.9 mmol/L (3.5-5.1); Sodium Level 140 mmol/L (136-145)
== END | disposition home or self-care (01) ==
LOC: BFHLAB 11:09
PROVIDERS: Family Provider Family Medicine; PCP Family Medicine; Visit Provider Family Medicine
DX: N18.4 Chronic kidney disease, stage 4 (severe) (principal)
CPT/HCPCS: 36415; 80048

== ENCOUNTER → 2018-11-03 | Outpatient (CLI) | payer MEDICARE, OTHER, SELFPAY ==
[2018-07-12 11:26] VITALS: BMI 29.7
[2018-10-19 14:14] VITALS: BMI 27.5
--- NOTE | 2018-11-03 07:42 | CT_ITS ---
STUDY: CT CHEST WITHOUT CONTRAST REASON FOR EXAM: Male, 78 years old. Lung nodule follow-up. No new problems or pain. History of renal cancer with right nephrectomy. Hypertension, diabetes, prior heart surgery. RADIATION DOSAGE (If Supplied By Facility): CTDIvol = ( 14.30 ) mGy, DLP = ( 539.49 ) mGycm TECHNIQUE: Transaxial imaging was performed without the administration of intravenous contrast material. Coronal and sagittal 2-D MPR Individualized dose optimization techniques were used for this CT. COMPARISON: X-ray chest 07/16/2018, CT chest 01/26/2018, 01/04/2018. FINDINGS: Supraclavicular: Low density left thyroid nodule with a greatest dimension of approximately 2.6 cm. Stable compared to prior imaging of 01/04/2018. Body wall soft tissues: Mild symmetric gynecomastia. Upper abdomen: Cyst of the proximal pancreatic tail measuring 1.85 cm anterior-posterior, 2.08 cm transverse. This cyst is unchanged compared to prior imaging of 01/26/2018. Differential considerations include simple cyst, represents pseudocyst, intraductal or branch ductal IPMN. Other cystic neoplasm type not excluded. Based on size criteria, annual surveillance is recommended. Osseous structures: Median sternotomy. Mild thoracic kyphoscoliosis. No significant thoracic spondylosis. Prominent low cervical disc degeneration incompletely characterized at the apex of the field of view. Mediastinum: Mediastinal lymphadenopathy. Several of the lymph nodes are calcified. The overall pattern, distribution and size of lymph nodes is unchanged compared to prior imaging of 01/26/2018. The largest mediastinal lymph node is pretracheal, measuring approximately 22 x 16 mm. No significant hilar lymphadenopathy is apparent. Heart: Moderate cardiomegaly, no pericardial effusion, dense mitral annulus calcifications, aortic valve bioprosthetic, CABG, prominent calcification of the [place] coronary arteries. Aorta: Aneurysmal ectasia of the ascending aorta and proximal arch up to 4.3 cm, stable. Pulmonary arteries: Ectatic central pulmonary arteries, main pulmonary artery 4.2 cm. Lungs: Minimal left pleural effusion, diminished in size compared to prior imaging of 07/07/2018. Right lower lobe medial basilar pulmonary nodule image 99, 6 mm, increased from 2.8 mm on the study of July 2018. Lateral basilar image 95, 7.8 mm, minimal increase in size from 7 mm on the study of July 2018. Right lower lobe apical segment image 66, 11.6 mm, increased from 7.1 mm on the study of July 2018. Left lower lobe medial basilar segment medial pleural margin 13.8 mm, image 101, no change. Posterior basilar abutting the pleural margin 7.6 mm, image 81, no change. CT/Chest without Contrast IMPRESSION: The pulmonary nodules identified on today's study are the same as those identified on the study of July 2018. A few have increased in size as noted above. These pulmonary nodules are not apparent on the studies of 2018. Malignancy must be considered. The most notable increase in size is a lesion in the right lower lobe apical segment image 66. Minimal left effusion. Stable mediastinal lymphadenopathy. Stable cardiovascular abnormalities. Stable left thyroid nodule. Stable pancreatic cyst. Electronically Signed: Dereje Aponte MD at 8:30 EDT Tel , Service support ,
== END | disposition home or self-care (01) ==
LOC: CT 07:41
PROVIDERS: Family Provider Family Medicine; PCP Family Medicine; Referring Provider Internal Medicine Medical Oncology; Visit Provider Internal Medicine Medical Oncology
DX: C64.1 Malignant neoplasm of right kidney, except renal pelvis (principal); R91.8 Other nonspecific abnormal finding of lung field
CPT/HCPCS: 71250

== ENCOUNTER 2018-11-10 06:17 | Observation (INO) | payer MEDICARE, OTHER, SELFPAY ==
[2018-11-08 13:38] VITALS: BMI 27.8
[2018-11-10] VITALS (16 sets, daily range): BP systolic 138–188; BP diastolic 81–105; PULSE 68–100; RESP 16–18; TEMP 36.4–36.9; O2SAT 88–98; BMI 27.9; BMI 26.7; BMI 26.8
--- NOTE | 2018-11-10 06:23 | ED.RN ---
CALLED FOR EKG PER RN REQUEST, PULLED OLD EKGS FOR
--- NOTE | 2018-11-10 06:30 | RAD_ITS ---
STUDY: X-RAY CHEST REASON FOR EXAM: Male, 78 years old. Pain TECHNIQUE: Single AP portable view of the chest. COMPARISON: None. FINDINGS: Subsegmental atelectases are noted in the right and left lung bases. There is no demonstrated pleural abnormality. Sternal cerclage wires are present from a prior sternotomy. Normal mediastinum and coco. Normal visualized pulmonary arteries. Normal visualized aortic arch and descending thoracic aorta. There are diffuse degenerative changes of the visualized thoracic spine. Normal visualized ribs, clavicles, and shoulders. There is no demonstrated abnormality of the visualized soft tissue structures of the upper abdomen. RAD/Chest 1 View (Portable) IMPRESSION: Degenerative changes, as described above. No demonstrated acute cardiopulmonary process. Electronically Signed: Deborah Miller, at 7:41 EDT Tel , Service support ,
--- NOTE | 2018-11-10 06:30 | EKG12_ITS ---
Test Reason : SOB Blood Pressure : / mmHG Vent. Rate : 099 BPM Atrial Rate : 104 BPM P-R Int : 000 ms QRS Dur : 126 ms QT Int : 396 ms P-R-T Axes : 000 033 106 degrees QTc Int : 508 ms Normal SInus Rhythm with premature ventricular or aberrantly conducted complexes Non-specific intra-ventricular conduction block T wave abnormality, consider lateral ischemia Abnormal ECG Confirmed by BREE LUCIANO ([id number]), electronic news gathering editor JON STACK ([id number]) on 11/12/2018 10:52:16 AM Referred By: Ravi Frye Confirmed By:BREE LUCIANO
--- NOTE | 2018-11-10 06:34 | ED.VISSUMM ---
- ER Visit Summary Date of Service: 11/10/18 Chief Complaint: Shortness of breath, low oxygen History of Present Illness: The patient is a 78 M with complex medical history that includes prior coronary artery bypass, cardiac stenting, and aortic valve replacement 2016 presents to the emergency department with increasing shortness of breath. Patient does have a history of congestive heart failure. He also is status post nephrectomy for renal cell carcinoma and has diminished function of his remaining kidney. He is on Bumex. He does follow with Dr. Frye. He states over the past 24 hours, he had some worsening shortness of breath. He states that tonight, he states he was having some difficulty taking deep breath and cannot lay flat. He does admit to about a 4 pound weight gain. He does have a home pulse ox. He states that he was taking it and the lowest it got was 78. He states normally, it was maintaining right around 85 to 88%. He has not on home oxygen. He is been compliant with his medications. He is not on dialysis. He denies any fevers or chills. He denies any cough productive sputum. Physical Examination: Vital signs reviewed General: Well-nourished, well-developed Head: Normocephalic, atraumatic Eyes: Pupils equal and reactive, extraocular muscles intact Neck, supple, no lymphadenopathy Heart: Regular rate and rhythm, 2 out of 6 murmur Respiratory: No distress, diminished in the bases with crackles at the left Abdomen: Soft, nontender, nondistended, no peritoneal signs Back: Nontender Extremities: Nontender, 1+ symmetric edema, no cords Skin: Normal color no rash Neuro: Alert and oriented, no focal or lateralizing deficits Test Results: [] Emergency Department Course and Treatment: [] Treatment Plan: [] Disposition: [] Impression: [] This note was generated with [employer] software. It may contain incorrect words, spelling, and punctuation that were not noted in review of the chart prior to signing <Todd Rocha - Last Filed: 11/10/18 06:34> - ER Visit Summary Date of Service: 11/10/18 Chief Complaint: [] History of Present Illness: The patient is a 78 M [] Physical Examination: [] Test Results: [] Emergency Department Course and Treatment: The patient's EKG was sinus rhythm with a left bundle branch block. Chest x-ray reveals atelectasis but no significant fluid overload. Troponin 0 0.025. BNP 604. His creatinine is 3.61 which is around baseline. Patient was given topical nitroglycerin and oxygen. He may have an element of CHF causing this hypoxia. However, other things such as PE could be a consideration. He cannot have a CTA of his chest. He may need a VQ scan. The patient will be admitted to the hospital for further evaluation Treatment Plan: [] Disposition: Admit Impression: CHF, dyspnea, hypoxia This note was generated with [employer] dictation software. It may contain incorrect words, spelling, and punctuation that were not noted in review of the chart prior to signing <Main Sanchez - Last Filed: 11/10/18 07:57> ED Disposition <Todd Rocha - Last Filed: 11/10/18 06:34> <Main Sanchez - Last Filed: 11/10/18 07:57> - Plan for ED Patient: Referrals: Dejuan Catherine DO [Primary Care Provider] -
[2018-11-10 06:40] LABS: Absolute Lymphocyte Count 1.34 X10^3/ul (0.83-4.51); Absolute Neutrophil Count 8.6 X10^3/uL (2.0-7.7); Basophil# 0.02 X10^3/uL; Basophil% 0.2 % (0-1); Eosinophil# 0.13 X10^3/uL; Eosinophils% 1.3 % (0-5); Hematocrit 34.2 % (40-54); Hemoglobin 11.1 g/dl (13.0-16.5); Lymphocyte # 1.34 X10^3/ul (4.0); Mean Corp Hgb Conc 32.5 g/gl (32-36); Mean Corpuscular Hgb 29.6 pg (27.0-32.0); Mean Corpuscular Volume 91.2 fL (80-94); Mean Platelet Vol. 9.6 fl (6.2-12.0); Monocyte# 0.23 X10^3/uL; Monocyte% 2.2 % (0-10); Neutrophil # 8.55 X10^3/uL (2.7-7.7); Neutrophil % 83.1 % (47-70); POSITIVE COUNT NO; POSITIVE DIFFERENTIAL NO; POSITIVE MORPHOLOGY NO; Platelet Count 140 K/mm3 (150-450); RBC Distribution Width CV 16.2 % (11.6-14.6); RBC Distribution Width SD 53.9 fl (35.1-43.9); Red Blood Count 3.75 M/mm3 (4.6-6.2); White Blood Count 10.3 K/mm3 (4.4-11.0)
[2018-11-10] MEDS: Nitroglycerin Oint 1 INCH PACKET TRANSDERM. (06:40)
[2018-11-10 06:54] LABS: Anion Gap 10 (5-15); BUN 60 mg/dL (7-18); BUN/Creat Ratio 16.6 RATIO (10-20); Calcium,Total 9.3 mg/dL (8.5-10.1); Chloride 103 mmol/L (98-107); Creatinine, Serum 3.61 mg/dL (0.70-1.30); EST Glomerular Filtration Rate 18 mL/min (>60); Est Glom Filt Rate - Afr Amer 21 mL/min (>60); Estimated Creatinine Clearance 17.41 ml/min; Glucose 132 mg/dL (74-106); Magnesium 2.3 mg/dL (1.6-2.6); Potassium 3.9 mmol/L (3.5-5.1); Sodium Level 139 mmol/L (136-145)
[2018-11-10 07:43] LABS: BNP,B-Type NATRIURETIC PEPTIDE 604.7 pg/mL (0-100)
--- NOTE | 2018-11-10 09:31 | PCM.HP.STD ---
History of Present Illness Date of Admission: 11/10/18 Chief Complaint: shortness of breath The patient is a 78 year old M with a past medical history as listed. He was admitted through the ED on 11/10/2018 with complaint of shortness of breath was started overnight. Patient states he became acutely short of breath with associated orthopnea and PND. His checked his pulse ox and noted that he was saturating in the 70s. He denied any cough or chest pain or palpitations, dizziness, lightheadedness, diarrhea vomiting. He does have a history of heart failure with preserved ejection fraction and was admitted about a month ago for similar condition and managed for acute on chronic exacerbation of diastolic heart failure. Patient is on Bumex and states that his dose was decreased at time of last discharge from twice daily to once daily on account of renal impairment. He denies any history of long distance travel or any history of DVT or PE. On arrival in the ED, he was saturating at 88% on 2 L of oxygen oxygen had been bumped up to 4 L. Vitals were otherwise stable and chemistry was significant for creatinine of 3.6 which is around his baseline. BNP was 604.7 and CBC was unremarkable. Chest x-ray showed bilateral atelectasis but no evidence of fluid overload. Initial troponin was negative. EKG showed normal sinus rhythm with a left bundle branch block. He has been admitted to be managed for acute on chronic idastolic CHF exacerbation. [] Past Medical History Past Medical History (Chronic Problems): Chronic Problems (Last Updated 11/08/18 @ 13:26 by Sammie Mcclain) Left renal mass (Chronic) Lung nodules (Chronic) History of renal cell cancer (Chronic) Presence of stent in coronary artery (Chronic) PTCA of RCA intracoronary stent January 2009 (bare metal) Premature atrial contractions (Chronic) Presence of aortocoronary bypass graft (Chronic) CABG X 4, JOE to LAD, SVG-D1 sequential - PDA1 & PDA 2 Paroxysmal atrial fibrillation (Chronic) H/O aortic valve replacement (Chronic) 07/25/15 @ [facility] Premature ventricular contractions (Chronic) 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) Hyperlipidemia (Chronic) Hypertension (Chronic) Osteoarthritis of left knee (Chronic) DM2 (diabetes mellitus, type 2) (Chronic) Chronic kidney disease (Chronic) Solitary kidney (Chronic) Medical History: Medical History (Last Updated 11/08/18 @ 13:26 by Sammie Mcclain) Premature atrial contractions (Chronic) I49.1 Paroxysmal atrial fibrillation (Chronic) I48.0 Premature ventricular contractions (Chronic) I49.3 Encounter for adjustment or management of vascular access device (Inactive) Z45.2 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) M00.9 Septic arthritis (Chronic) M00.9 Hyperlipidemia (Chronic) E78.5 Hypertension (Chronic) I10 Osteoarthritis of left knee (Chronic) M17.12 DM2 (diabetes mellitus, type 2) (Chronic) E11.9 Bacteremia due to Enterococcus (Inactive) R78.81, B95.2 Chronic kidney disease (Chronic) N18.9 Solitary kidney (Chronic) Q60.0 VINOD (acute kidney injury) (Resolved) N17.9 Flu J11.1 Cancer of right kidney C64.1 S/P nephrectomy on January 13, 2016 at Left renal mass N28.89 S/p nephrectomy Z90.5 right Syncope and collapse R55 Atherosclerotic heart disease of [place] coronary artery without angina pectoris I25.10 CABG X 4, JOE to LAD, SVG-D1 sequential - PDA1 & PDA 07 July 2015 at [facility] in [place]; PTCA of RCA intracoronary stent January 2009 (bare metal) Nonrheumatic aortic (valve) stenosis I35.0 Allergies losartan potassium [From Cozaar] Allergy (Severe, Verified 11/10/18 06:21) Other valsartan [From Diovan HCT] Allergy (Severe, Verified 11/10/18 06:21) Other amlodipine besylate [From Norvasc] Allergy (Verified 11/10/18 06:21) Other doxazosin mesylate [From Cardura] Allergy (Verified 11/10/18 06:21) Other furosemide [From Lasix] Allergy (Verified 11/10/18 06:21) Other states causes urinary system to shut down and he can't urinate hydrochlorothiazide Allergy (Verified 11/10/18 06:21) Other metoprolol succinate [From Toprol XL] Allergy (Verified 11/10/18 06:21) Other simvastatin Allergy (Verified 11/10/18 06:21) Other atenolol Adverse Reaction (Severe, Verified 11/10/18 06:21) Potential to cause CVA? losartan [From Hyzaar] Adverse Reaction (Severe, Verified 11/10/18 06:21) Ineffective oxycodone [From OxyIR] Adverse Reaction (Severe, Verified 11/10/18 06:21) tremors SEVERE CONFUSION acetaminophen [From Vicodin] Adverse Reaction (Verified 11/10/18 06:21) Other hydrocodone [From Vicodin] Adverse Reaction (Verified 11/10/18 06:21) Other vicodin Adverse Reaction (Severe, Uncoded 11/10/18 06:21) Other SEVERE CONFUSION Hydrogenated Vegetable Oil Adverse Reaction (Uncoded 11/10/18 06:21) Upset Stomach Home Medications: Ambulatory Orders Medication Instructions Recorded diltiazem ER (XR/XT) 180 mg 180 mg PO BID #180 cap 04/20/18 capsule,extended release 24 hr, controlled labetalol 100 mg tablet 100 mg PO BID #180 tab 04/20/18 Allopurinol 100 mg PO DAILY 09/28/18 Docusate Sodium [Colace] 100 mg PO DAILY 09/28/18 Iron Polysaccharide Complex 150 mg PO BID 09/28/18 [Ferrex 150] Albuterol Inhaler [Ventolin Hfa] 1 - 2 puff INHALATION Q4H PRN PRN 09/30/18 #1 inhaler Ascorbic Acid [C-1000] 1,000 mg PO BID 10/12/18 amoxicillin 500 mg capsule 500 mg PO TID #180 cap 10/19/18 bumetanide 2 mg tablet 2 mg PO DAILY 10/19/18 isosorbide mononitrate ER 60 mg 60 mg PO BID #120 tab 10/19/18 tablet,extended release 24 hr Cholecalciferol (Vitamin D3) 2,000 unit PO MOWEFR 11/10/18 [Vitamin D3] Cyanocobalamin (Vitamin B-12) 2,500 mcg PO MOWEFR 11/10/18 [Vitamin B12] Surgical History: Surgical History (Last Reviewed 11/08/18 @ 13:29 by Sammie Mcclain) Presence of stent in coronary artery (Chronic) Z95.5 PTCA of RCA intracoronary stent January 2009 (bare metal) Presence of aortocoronary bypass graft (Chronic) Z95.1 CABG X 4, JOE to LAD, SVG-D1 sequential - PDA1 & PDA 2 H/O aortic valve replacement (Chronic) Z95.2 07/25/15 @ [facility] H/O hemorrhoidectomy Z98.890 History of left knee replacement Z96.652 port placement port removal 10/2017 Surgical History: cataract, coronary bypass surgery - X 3., herniorrhaphy - Umbilical., total knee arthroplasty - Left., - - Hemorrhoidectomy, aortic valve replacement (bovine), cardiac stent, right nephrectomy 01/15/2016. Psychiatric History: No pertinent psych hx Smoking Status: Former smoker - *Family History Sibling Family History: Family History (Last Reviewed 11/08/18 @ 13:29 by Sammie Mcclain) Father CAD (coronary artery disease) Mother Hypertension Brother Diabetes History Items: Diabetes Paternal Family History: Family History (Last Reviewed 11/08/18 @ 13:29 by Sammie Mcclain) Father CAD (coronary artery disease) Mother Hypertension Brother Diabetes History Items: No pertinent history Maternal Family History: Family History (Last Reviewed 11/08/18 @ 13:29 by Sammie Mcclain) Father CAD (coronary artery disease) Mother Hypertension Brother Diabetes History Items: Cancer - breast Review of Systems Constitutional: Denies: Chills, Fever, Weight Change Eyes: Denies: Blurred vision HEENT: Denies: Head Aches, Sinus Congestion, Sinus Drainage Cardiovascular: Reports: Chest Pain, Orthopnea, Paroxysmal Noc. Dyspnea. Denies: Edema, Heaviness, Light Headedness, Palpitations, Syncope Respiratory: Reports: Shortness of Breath, Shortness of breath at rest, Wheezing. Denies: Cough, Sputum production Gastrointestinal: Denies: Abdominal Pain, Nausea, Vomiting Genitourinary: Denies: Dysuria Musculoskeletal: Denies: Joint Pain, Joint Tenderness Skin: Denies: Rash, Wounds Neurological: Denies: Numbness, Tingling, Focal weakness Psychiatric: Denies: Anxiety, Depression, Homicidal Ideations, Suicidal Ideations Hematologic/ Lymphatic: Denies: Easy Bruising, Easy Bleeding VTE Information - Inpt Only VTE Present on Admission: No VTE Pharm Prophylaxis ordered?: Yes - Physical Exam General: Alert, Oriented x3, Cooperative, No apparent distress HEENT: Atraumatic, PERRLA, EOMI, Normocephalic Oral: Moist Mucosa Neck: Supple, No JVD, Negative Carotid Bruits Lungs: - - mildly decreased breath sounds bibasally, no wheezes or crackles. on 2L of oxygen Cardiovascular: Regular rate, Regular Rhythm, Normal S1, Normal S2, No murmurs, - Abdomen: Bowel Sounds Present, Soft, Non Tender, Non-Distended, No Hepato-splenomegaly Extremities: No clubbing, No cyanosis, No edema, Capillary Refill Less than 3 Seconds Skin: No rashes, No breakdown Musculoskeletal: No Tenderness to Palpation of Joints or Extremities Lymphatic: No Cervical, Supraclavicular, or Inguinal Adenopathy Neurological: Cranial nerves II-XII grossly intact, Neuro grossly intact, Motor Exam 5/5 strength throughout Psych/Mental Status: Normal Affect, Appropriate, Alert and oriented to time, place, person, mood and affect Vital Signs Temp Pulse Resp BP Pulse Ox 97.5 F L 86 18 158/101 H 94 11/10/18 08:40 11/10/18 08:51 11/10/18 08:40 11/10/18 08:40 11/10/18 08:40 Oxygen Flow Rate (L/min) 2 Oxygen Delivery Method Nasal Cannula Weight: 186 lb 8.177 oz Body Mass Index (BMI) 26.7 Finger Stick Blood Glucose 122 Laboratory Tests Past 24 Hrs 11/10/18 11/10/18 11/10/18 06:25 06:25 06:25 WBC 10.3 RBC 3.75 L Hgb 11.1 L Hct 34.2 L MCV 91.2 MCH 29.6 MCHC 32.5 RDW 16.2 H RDW Differential 53.9 H Plt Count 140 L MPV 9.6 Immature Gran % (Auto) 0.200 Neut % (Auto) 83.1 H Lymph % (Auto) 13.0 L [place] % (Auto) 2.2 Eos % (Auto) 1.3 Baso % (Auto) 0.2 Absolute Neuts (auto) 8.6 H Absolute Lymphs (auto) 1.34 Total Counted Not Reportable Sodium 139 Potassium 3.9 Chloride 103 Carbon Dioxide 26.0 Anion Gap 10 BUN 60 H Creatinine 3.61 H Estim Creat Clear Calc 17.41 Est GFR (MDRD) Af Amer 21 L Est GFR (MDRD) Non-Af 18 L BUN/Creatinine Ratio 16.6 Glucose 132 H Calcium 9.3 Magnesium 2.3 Troponin I 0.025 B-Natriuretic Peptide 604.7 H Diagnostic Data Chest X-Ray 11/10/18 06:30 IMPRESSION: Degenerative changes, as described above. No demonstrated acute cardiopulmonary process. Electronically Signed: Deborah Miller, at 7:41 EDT Tel , Service support , Assessment/Plan All Active Problems (Last Updated 11/08/18 @ 13:26 by Sammie Mcclain) Cancer of right kidney (Resolved) Pleural cavity effusion (Resolved) Influenza A (Acute) Heart failure with preserved ejection fraction (Acute) CHF (congestive heart failure) (Acute) VINOD (acute kidney injury) (Resolved) 78 y/o male admitted with a complaint of shortness of breath 1. Acute hypoxic respiratory insufficiency due to acute on chronic HFpEF BNP mildly elevated at 604, though this is not very accurate considering his kidney impairment CXR showed bilateral atelectasis admit to PCU with telemetry cycle troponins do V/Q scan to rule out PE in light of patient having a history of cancer, and also has 2 lung nodules and had very sudden hypoxia, per history. D Dimer wont be accurate in light of elevated Creatinine give IV bumex monitor input output fluid restriction to 1500mls daily titrate oxygen to maintain sats>90% 2. Acute on chronic HFpEF as under 1. 3. Paroxysmal afib: rate contrlled. On cardizem. 4. Hypertension: on labetalol. Controlled. Will monitor 5. History of right renal cell carcinoma s/p radical nephrectomy in January 2016. stable. follows up with oncology. also has complex nodule in left kidney ~ 2.2cm 6. History of lung nodules CT chest in October 2017 showed left lower lobe nodule ~ 1.3cm, 4mm nodule in left lower lobe nad 5mm nodule in right lower lobe PET scan in 10/21 showed no hypermetabolic activity follows up with oncology 7. CKD IV: Cr is 3.61, which is around his baseline. Has solitary left kidney. Stable. Will monitor. WIll follow up with Dr Billings on outpatient basis 8. CAD s/p CABG: stable 9. Aortic stenosis: s/p aortic valve replacement. stable 10. 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 THrombocytopenia: chronic. Platelets are 140 today. Will monitor. DVT prophylaxis: heparin Code Visit OBSV E&M: 49134 Initial observation care L3
--- NOTE | 2018-11-10 09:37 | HP.PCM_ITS ---
History of Present Illness Date of Admission: 11/10/18 Chief Complaint: shortness of breath The patient is a 78 year old M with a past medical history as listed. He was admitted through the ED on 11/10/2018 with complaint of shortness of breath was started overnight. Patient states he became acutely short of breath with associated orthopnea and PND. His checked his pulse ox and noted that he was saturating in the 70s. He denied any cough or chest pain or palpitations, dizziness, lightheadedness, diarrhea vomiting. He does have a history of heart failure with preserved ejection fraction and was admitted about a month ago for similar condition and managed for acute on chronic exacerbation of diastolic heart failure. Patient is on Bumex and states that his dose was decreased at time of last discharge from twice daily to once daily on account of renal impairment. He denies any history of long distance travel or any history of DVT or PE. On arrival in the ED, he was saturating at 88% on 2 L of oxygen oxygen had been bumped up to 4 L. Vitals were otherwise stable and chemistry was significant for creatinine of 3.6 which is around his baseline. BNP was 604.7 and CBC was unremarkable. Chest x-ray showed bilateral atelectasis but no evidence of fluid overload. Initial troponin was negative. EKG showed normal sinus rhythm with a left bundle branch block. He has been admitted to be managed for acute on chronic idastolic CHF exacerbation. [] Past Medical History Past Medical History (Chronic Problems): Chronic Problems (Last Updated 11/08/18 @ 13:26 by Sammie Mcclain) Left renal mass (Chronic) Lung nodules (Chronic) History of renal cell cancer (Chronic) Presence of stent in coronary artery (Chronic) PTCA of RCA intracoronary stent January 2009 (bare metal) Premature atrial contractions (Chronic) Presence of aortocoronary bypass graft (Chronic) CABG X 4, JOE to LAD, SVG-D1 sequential - PDA1 & PDA 2 Paroxysmal atrial fibrillation (Chronic) H/O aortic valve replacement (Chronic) 07/25/15 @ [facility] Premature ventricular contractions (Chronic) 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) Hyperlipidemia (Chronic) Hypertension (Chronic) Osteoarthritis of left knee (Chronic) DM2 (diabetes mellitus, type 2) (Chronic) Chronic kidney disease (Chronic) Solitary kidney (Chronic) Medical History: Medical History (Last Updated 11/08/18 @ 13:26 by Sammie Mcclain) Premature atrial contractions (Chronic) I49.1 Paroxysmal atrial fibrillation (Chronic) I48.0 Premature ventricular contractions (Chronic) I49.3 Encounter for adjustment or management of vascular access device (Inactive) Z45.2 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) M00.9 Septic arthritis (Chronic) M00.9 Hyperlipidemia (Chronic) E78.5 Hypertension (Chronic) I10 Osteoarthritis of left knee (Chronic) M17.12 DM2 (diabetes mellitus, type 2) (Chronic) E11.9 Bacteremia due to Enterococcus (Inactive) R78.81, B95.2 Chronic kidney disease (Chronic) N18.9 Solitary kidney (Chronic) Q60.0 VINOD (acute kidney injury) (Resolved) N17.9 Flu J11.1 Cancer of right kidney C64.1 S/P nephrectomy on January 13, 2016 at Left renal mass N28.89 S/p nephrectomy Z90.5 right Syncope and collapse R55 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 CABG X 4, JOE to LAD, SVG-D1 sequential - PDA1 & PDA 07 July 2015 at [facility] in [place]; PTCA of RCA intracoronary stent January 2009 (bare metal) Nonrheumatic aortic (valve) stenosis I35.0 Allergies losartan potassium [From Cozaar] Allergy (Severe, Verified 11/10/18 06:21) Other valsartan [From Diovan HCT] Allergy (Severe, Verified 11/10/18 06:21) Other amlodipine besylate [From Norvasc] Allergy (Verified 11/10/18 06:21) Other doxazosin mesylate [From Cardura] Allergy (Verified 11/10/18 06:21) Other furosemide [From Lasix] Allergy (Verified 11/10/18 06:21) Other states causes urinary system to shut down and he can't urinate hydrochlorothiazide Allergy (Verified 11/10/18 06:21) Other metoprolol succinate [From Toprol XL] Allergy (Verified 11/10/18 06:21) Other simvastatin Allergy (Verified 11/10/18 06:21) Other atenolol Adverse Reaction (Severe, Verified 11/10/18 06:21) Potential to cause CVA? losartan [From Hyzaar] Adverse Reaction (Severe, Verified 11/10/18 06:21) Ineffective oxycodone [From OxyIR] Adverse Reaction (Severe, Verified 11/10/18 06:21) tremors SEVERE CONFUSION acetaminophen [From Vicodin] Adverse Reaction (Verified 11/10/18 06:21) Other hydrocodone [From Vicodin] Adverse Reaction (Verified 11/10/18 06:21) Other vicodin Adverse Reaction (Severe, Uncoded 11/10/18 06:21) Other SEVERE CONFUSION Hydrogenated Vegetable Oil Adverse Reaction (Uncoded 11/10/18 06:21) Upset Stomach Home Medications: Ambulatory Orders Medication Instructions Recorded diltiazem ER (XR/XT) 180 mg 180 mg PO BID #180 cap 04/20/18 capsule,extended release 24 hr, controlled labetalol 100 mg tablet 100 mg PO BID #180 tab 04/20/18 Allopurinol 100 mg PO DAILY 09/28/18 Docusate Sodium [Colace] 100 mg PO DAILY 09/28/18 Iron Polysaccharide Complex 150 mg PO BID 09/28/18 [Ferrex 150] Albuterol Inhaler [Ventolin Hfa] 1 - 2 puff INHALATION Q4H PRN PRN 09/30/18 #1 inhaler Ascorbic Acid [C-1000] 1,000 mg PO BID 10/12/18 amoxicillin 500 mg capsule 500 mg PO TID #180 cap 10/19/18 bumetanide 2 mg tablet 2 mg PO DAILY 10/19/18 isosorbide mononitrate ER 60 mg 60 mg PO BID #120 tab 10/19/18 tablet,extended release 24 hr Cholecalciferol (Vitamin D3) 2,000 unit PO MOWEFR 11/10/18 [Vitamin D3] Cyanocobalamin (Vitamin B-12) 2,500 mcg PO MOWEFR 11/10/18 [Vitamin B12] Surgical History: Surgical History (Last Reviewed 11/08/18 @ 13:29 by Sammie Mcclain) Presence of stent in coronary artery (Chronic) Z95.5 PTCA of RCA intracoronary stent January 2009 (bare metal) Presence of aortocoronary bypass graft (Chronic) Z95.1 CABG X 4, JOE to LAD, SVG-D1 sequential - PDA1 & PDA 2 H/O aortic valve replacement (Chronic) Z95.2 07/25/15 @ [facility] H/O hemorrhoidectomy Z98.890 History of left knee replacement Z96.652 port placement port removal 10/2017 Surgical History: cataract, coronary bypass surgery - X 3., herniorrhaphy - Umbilical., total knee arthroplasty - Left., - - Hemorrhoidectomy, aortic valve replacement (bovine), cardiac stent, right nephrectomy 01/15/2016. Psychiatric History: No pertinent psych hx Smoking Status: Former smoker - *Family History Sibling Family History: Family History (Last Reviewed 11/08/18 @ 13:29 by Sammie Mcclain) Father CAD (coronary artery disease) Mother Hypertension Brother Diabetes History Items: Diabetes Paternal Family History: Family History (Last Reviewed 11/08/18 @ 13:29 by Sammie Mcclain) Father CAD (coronary artery disease) Mother Hypertension Brother Diabetes History Items: No pertinent history Maternal Family History: Family History (Last Reviewed 11/08/18 @ 13:29 by Sammie Mcclain) Father CAD (coronary artery disease) Mother Hypertension Brother Diabetes History Items: Cancer - breast Review of Systems Constitutional: Denies: Chills, Fever, Weight Change Eyes: Denies: Blurred vision HEENT: Denies: Head Aches, Sinus Congestion, Sinus Drainage Cardiovascular: Reports: Chest Pain, Orthopnea, Paroxysmal Noc. Dyspnea. Denies: Edema, Heaviness, Light Headedness, Palpitations, Syncope Respiratory: Reports: Shortness of Breath, Shortness of breath at rest, Wheezing. Denies: Cough, Sputum production Gastrointestinal: Denies: Abdominal Pain, Nausea, Vomiting Genitourinary: Denies: Dysuria Musculoskeletal: Denies: Joint Pain, Joint Tenderness Skin: Denies: Rash, Wounds Neurological: Denies: Numbness, Tingling, Focal weakness Psychiatric: Denies: Anxiety, Depression, Homicidal Ideations, Suicidal Ideations Hematologic/ Lymphatic: Denies: Easy Bruising, Easy Bleeding VTE Information - Inpt Only VTE Present on Admission: No VTE Pharm Prophylaxis ordered?: Yes - Physical Exam General: Alert, Oriented x3, Cooperative, No apparent distress HEENT: Atraumatic, PERRLA, EOMI, Normocephalic Oral: Moist Mucosa Neck: Supple, No JVD, Negative Carotid Bruits Lungs: - - mildly decreased breath sounds bibasally, no wheezes or crackles. on 2L of oxygen Cardiovascular: Regular rate, Regular Rhythm, Normal S1, Normal S2, No murmurs, - Abdomen: Bowel Sounds Present, Soft, Non Tender, Non-Distended, No Hepato- splenomegaly Extremities: No clubbing, No cyanosis, No edema, Capillary Refill Less than 3 Seconds Skin: No rashes, No breakdown Musculoskeletal: No Tenderness to Palpation of Joints or Extremities Lymphatic: No Cervical, Supraclavicular, or Inguinal Adenopathy Neurological: Cranial nerves II-XII grossly intact, Neuro grossly intact, Motor Exam 5/5 strength throughout Psych/Mental Status: Normal Affect, Appropriate, Alert and oriented to time, place, person, mood and affect Vital Signs Temp Pulse Resp BP Pulse Ox 97.5 F L 86 18 158/101 H 94 11/10/18 08:40 11/10/18 08:51 11/10/18 08:40 11/10/18 08:40 11/10/18 08:40 Oxygen Flow Rate (L/min) 2 Oxygen Delivery Method Nasal Cannula Weight: 186 lb 8.177 oz Body Mass Index (BMI) 26.7 Finger Stick Blood Glucose 122 Laboratory Tests Past 24 Hrs 11/10/18 11/10/18 11/10/18 06:25 06:25 06:25 WBC 10.3 RBC 3.75 L Hgb 11.1 L Hct 34.2 L MCV 91.2 MCH 29.6 MCHC 32.5 RDW 16.2 H RDW Differential 53.9 H Plt Count 140 L MPV 9.6 Immature Gran % (Auto) 0.200 Neut % (Auto) 83.1 H Lymph % (Auto) 13.0 L [place] % (Auto) 2.2 Eos % (Auto) 1.3 Baso % (Auto) 0.2 Absolute Neuts (auto) 8.6 H Absolute Lymphs (auto) 1.34 Total Counted Not Reportable Sodium 139 Potassium 3.9 Chloride 103 Carbon Dioxide 26.0 Anion Gap 10 BUN 60 H Creatinine 3.61 H Estim Creat Clear Calc 17.41 Est GFR (MDRD) Af Amer 21 L Est GFR (MDRD) Non-Af 18 L BUN/Creatinine Ratio 16.6 Glucose 132 H Calcium 9.3 Magnesium 2.3 Troponin I 0.025 B-Natriuretic Peptide 604.7 H Diagnostic Data Chest X-Ray 11/10/18 06:30 IMPRESSION: Degenerative changes, as described above. No demonstrated acute cardiopulmonary process. Electronically Signed: Deborah Miller, at 7:41 EDT Tel , Service support , Assessment/Plan All Active Problems (Last Updated 11/08/18 @ 13:26 by Sammie Mcclain) Cancer of right kidney (Resolved) Pleural cavity effusion (Resolved) Influenza A (Acute) Heart failure with preserved ejection fraction (Acute) CHF (congestive heart failure) (Acute) VINOD (acute kidney injury) (Resolved) 78 y/o male admitted with a complaint of shortness of breath 1. Acute hypoxic respiratory insufficiency due to acute on chronic HFpEF * BNP mildly elevated at 604, though this is not very accurate considering his kidney impairment * CXR showed bilateral atelectasis * admit to PCU with telemetry * cycle troponins * do V/Q scan to rule out PE in light of patient having a history of cancer, and also has 2 lung nodules and had very sudden hypoxia, per history. D Dimer wont be accurate in light of elevated Creatinine * give IV bumex * monitor input output * fluid restriction to 1500mls daily * titrate oxygen to maintain sats>90% * 2. Acute on chronic HFpEF * as under 1. * 3. Paroxysmal afib: rate contrlled. On cardizem. 4. Hypertension: on labetalol. Controlled. Will monitor 5. History of right renal cell carcinoma * s/p radical nephrectomy in January 2016. * stable. * follows up with oncology. * also has complex nodule in left kidney ~ 2.2cm * 6. History of lung nodules * CT chest in October 2017 showed left lower lobe nodule ~ 1.3cm, 4mm nodule in left lower lobe nad 5mm nodule in right lower lobe * PET scan in 10/21 showed no hypermetabolic activity * follows up with oncology * 7. CKD IV: Cr is 3.61, which is around his baseline. Has solitary left kidney. Stable. Will monitor. WIll follow up with Dr Billings on outpatient basis 8. CAD s/p CABG: stable 9. Aortic stenosis: s/p aortic valve replacement. stable 10. History of left knee periprosthetic infection and septic arthritis * on chronic amoxicillin therapy * 11. THrombocytopenia: chronic. Platelets are 140 today. Will monitor. * DVT prophylaxis: heparin Code Visit OBSV E&M: 21401 Initial observation care L3
--- NOTE | 2018-11-10 09:41 | NM_ITS ---
CLINICAL: 78-year-old male with reported history of chest discomfort. VENTILATION-PERFUSION LUNG SCINTIGRAPHY COMPARISON: Plain film chest radiograph 11/10/2018 FINDINGS: The patient was administered 44.7 mCi 99m Tc DTPA aerosol. The aerosol ventilation study demonstrates heterogeneous ventilation in the bilateral lung quesada without corresponding radiographic changes visualized on review of plain film chest x-ray dated 11/10/2018. Central clumping of the aerosol is identified in the bilateral hemithorax. Following the intravenous administration of 5.6 mCi of 99m Tc MAA, the pulmonary perfusion study reveals matching mild non-uniform perfusion in the right and left lungs less significant severity than the previously defined ventilation pattern. No moderate subsegmental or large segmental ventilation-perfusion mismatches are noted. NM/Lung Scan Vent/Perf IMPRESSION: 1. VERY LOW PROBABILITY FOR PULMONARY EMBOLUS (<10%) 99m Tc DTPA aerosol ventilation / 99m Tc MAA pulmonary perfusion imaging examination, according to PIOPED II interpretive criteria with regard given to the presence of > 2 ventilation-perfusion matches without corresponding radiographic changes. (Sotsman et al, Radiology 246: 941, 2008 Sohermann et al, J Nucl Med 49: 1741, 2008). 2. Central clumping of the aerosol may be secondary to obstructive airway mechanics and or clinical tachypnea. Electronically Signed: Dereje Arzola DO at 11:48 EDT Tel , Service support ,
[2018-11-10] MEDS: 0.9% NaCl Peripheral Flush Adult/Peds IV ×2 (11:10→17:02)
[2018-11-10] MEDS: Bumetanide 1 MG/4 ML Vial IV ×2 (11:10→17:02)
[2018-11-10] MEDS: Labetalol 100 MG Tablet PO ×2 (11:11→21:19)
[2018-11-10] MEDS: Allopurinol 100 MG Tablet PO (11:11)
[2018-11-10] MEDS: Docusate Sodium 100 MG Capsule PO (11:11)
[2018-11-10] MEDS: dilTIAZem CD 180 MG Capsule PO ×2 (11:11→21:19)
[2018-11-10] MEDS: Isosorbide Mononitrate 60 MG Tablet PO ×2 (11:11→21:19)
[2018-11-10] MEDS: Iron Polysaccharide Complex 150 MG CAPSULE PO ×2 (11:11→21:19)
[2018-11-10] MEDS: AMOXICILLIN 500 MG CAPSULE PO ×2 (13:24→21:19)
[2018-11-10] MEDS: Heparin Injection (Vial) 5,000 UNIT/ML VIAL 5000 UNIT SC ×2 (13:24→21:16)
[2018-11-10] MEDS: Ipratropium/Albuterol Sulfate 3 ML AMPUL.NEB INHALATION ×2 (15:42→20:04)
[2018-11-10] MEDS: Ascorbic Acid 500 MG Tablet 1000 MG PO (17:02)
[2018-11-11 03:00] VITALS: PULSE 71
[2018-11-11 03:10] VITALS: BP 127/68; PULSE 68; RESP 18; TEMP 36.9; O2SAT 97
[2018-11-11] MEDS: Heparin Injection (Vial) 5,000 UNIT/ML VIAL 5000 UNIT SC (05:06)
[2018-11-11] MEDS: AMOXICILLIN 500 MG CAPSULE PO (05:06)
[2018-11-11 06:47] LABS: Absolute Lymphocyte Count 0.91 X10^3/ul (0.83-4.51); Absolute Neutrophil Count 3.7 X10^3/uL (2.0-7.7); Basophil# 0.02 X10^3/uL; Basophil% 0.4 % (0-1); Eosinophil# 0.17 X10^3/uL; Eosinophils% 3.2 % (0-5); Hematocrit 28.6 % (40-54); Hemoglobin 9.2 g/dl (13.0-16.5); Lymphocyte # 0.91 X10^3/ul (4.0); Lymphocyte % 17.3 % (19-41); Mean Corp Hgb Conc 32.2 g/gl (32-36); Mean Corpuscular Hgb 29.7 pg (27.0-32.0); Mean Corpuscular Volume 92.3 fL (80-94); Mean Platelet Vol. 9.8 fl (6.2-12.0); Monocyte# 0.51 X10^3/uL; Monocyte% 9.7 % (0-10); Neutrophil # 3.65 X10^3/uL (2.7-7.7); Neutrophil % 69.2 % (47-70); Platelet Count 124 K/mm3 (150-450); RBC Distribution Width CV 16.2 % (11.6-14.6); RBC Distribution Width SD 52.3 fl (35.1-43.9); White Blood Count 5.3 K/mm3 (4.4-11.0)
[2018-11-11 06:49] LABS: POSITIVE COUNT NO; POSITIVE DIFFERENTIAL NO
[2018-11-11 06:50] LABS: POSITIVE MORPHOLOGY NO
[2018-11-11 06:58] LABS: Albumin, Serum 3.2 g/dL (3.2-5.0); BUN 62 mg/dL (7-18); BUN/Creat Ratio 16.8 RATIO (10-20); Calcium,Total 8.6 mg/dL (8.5-10.1); Chloride 108 mmol/L (98-107); Creatinine, Serum 3.69 mg/dL (0.70-1.30); EST Glomerular Filtration Rate 17 mL/min (>60); Est Glom Filt Rate - Afr Amer 21 mL/min (>60); Estimated Creatinine Clearance 17.04 ml/min; Glucose 107 mg/dL (74-106); Phosphorus 3.7 mg/dL (2.5-4.9); Potassium 3.9 mmol/L (3.5-5.1); Sodium Level 142 mmol/L (136-145)
[2018-11-11 07:19] VITALS: PULSE 86
[2018-11-11] MEDS: Ipratropium/Albuterol Sulfate 3 ML AMPUL.NEB INHALATION ×2 (07:29→10:52)
[2018-11-11 07:30] VITALS: PULSE 8; RESP 16; O2SAT 92
[2018-11-11 08:32] VITALS: BP 142/79; PULSE 78; RESP 16; TEMP 36.9; O2SAT 97
[2018-11-11] MEDS: Ascorbic Acid 500 MG Tablet 1000 MG PO (08:39)
[2018-11-11] MEDS: Bumetanide 1 MG/4 ML Vial IV (08:39)
[2018-11-11] MEDS: 0.9% NaCl Peripheral Flush Adult/Peds IV (08:39)
[2018-11-11] MEDS: dilTIAZem CD 180 MG Capsule PO (08:40)
[2018-11-11] MEDS: Docusate Sodium 100 MG Capsule PO (08:42)
[2018-11-11] MEDS: Iron Polysaccharide Complex 150 MG CAPSULE PO (08:43)
[2018-11-11] MEDS: Isosorbide Mononitrate 60 MG Tablet PO (08:43)
[2018-11-11] MEDS: Allopurinol 100 MG Tablet PO (08:44)
[2018-11-11] MEDS: Labetalol 100 MG Tablet PO (08:44)
--- NOTE | 2018-11-11 09:37 | CASEMGMT ---
SW spoke with patient and let him know that his Healthcare POA and Healthcare LW are not on file. Sujatha SANDOVAL MSW
--- NOTE | 2018-11-11 10:34 | DCINST_ITS ---
You will use the following diet at home:: Renal (restricted protein/sodium) Your food should be the consistency of: Regular Your liquids should be the consistency of: Regular/Thin Discharge Activity: Return to Normal Activity Weight Bearing Status: Weight bearing as tolerated Call your doctor if you observe: Shortness of breath, Swelling in the ankles Instructions: Heart Failure: Warning Signs of a Flare-Up, What Is Heart Failure?, Taking Medication to Control Heart Failure, Discharge Instructions for Heart Failure Additional Instructions: To take an extra pill of Bumetanide 2mg daily when patient gains at least 2 pounds or feels shortness of breath is worsening Allergies/Adverse Reactions: Allergies losartan potassium [From Cozaar] Allergy (Severe, Verified 11/10/18 06:21) Other valsartan [From Diovan HCT] Allergy (Severe, Verified 11/10/18 06:21) Other amlodipine besylate [From Norvasc] Allergy (Verified 11/10/18 06:21) Other doxazosin mesylate [From Cardura] Allergy (Verified 11/10/18 06:21) Other furosemide [From Lasix] Allergy (Verified 11/10/18 06:21) Other states causes urinary system to shut down and he can't urinate hydrochlorothiazide Allergy (Verified 11/10/18 06:21) Other metoprolol succinate [From Toprol XL] Allergy (Verified 11/10/18 06:21) Other simvastatin Allergy (Verified 11/10/18 06:21) Other atenolol Adverse Reaction (Severe, Verified 11/10/18 06:21) Potential to cause CVA? losartan [From Hyzaar] Adverse Reaction (Severe, Verified 11/10/18 06:21) Ineffective oxycodone [From OxyIR] Adverse Reaction (Severe, Verified 11/10/18 06:21) tremors SEVERE CONFUSION acetaminophen [From Vicodin] Adverse Reaction (Verified 11/10/18 06:21) Other hydrocodone [From Vicodin] Adverse Reaction (Verified 11/10/18 06:21) Other vicodin Adverse Reaction (Severe, Uncoded 11/10/18 06:21) Other SEVERE CONFUSION Hydrogenated Vegetable Oil Adverse Reaction (Uncoded 11/10/18 06:21) Upset Stomach Medications to take at Discharge diltiazem ER (XR/XT) 180 mg capsule,extended release 24 hr, controlled 180 mg PO BID #180 cap 04/20/18 labetalol 100 mg tablet 100 mg PO BID #180 tab 04/20/18 Allopurinol 100 mg PO DAILY 09/28/18 Docusate Sodium [Colace] 100 mg PO DAILY 09/28/18 Iron Polysaccharide Complex [Ferrex 150] 150 mg PO BID 09/28/18 Albuterol Inhaler [Ventolin Hfa] 1 - 2 puff INHALATION Q4H PRN PRN #1 inhaler 09/30/18 Ascorbic Acid [C-1000] 1,000 mg PO BID 10/12/18 amoxicillin 500 mg capsule 500 mg PO TID #180 cap 10/19/18 bumetanide 2 mg tablet 2 mg PO DAILY 10/19/18 isosorbide mononitrate ER 60 mg tablet,extended release 24 hr 60 mg PO BID #120 tab 10/19/18 Cholecalciferol (Vitamin D3) [Vitamin D3] 2,000 unit PO MOWEFR 11/10/18 Cyanocobalamin (Vitamin B-12) [Vitamin B12] 2,500 mcg PO MOWEFR 11/10/18 Primary Care Physician: Dejuan Catherine DO [Primary Care Provider] - Please follow up with your Primary Care Physician in: one week Test Results: Test results from this visit will be discussed in further detail at your follow- up appointment, if applicable. Please Follow Up With: Ravi Frye MD When: one week Proposed Discharge Date: 11/11/18
--- NOTE | 2018-11-11 10:34 | PCM.DC.SUM ---
Discharge Date and Diagnosis Date of Admission: 11/10/18 Date of Discharge: 11/11/18 - Primary Discharge Diagnosis acute on chronic HF pEF acute hypoxic respiratory insufficiency due to acute on chronic HFpEF. - Secondary Discharge Diagnosis Chronic Problems (Last Updated 11/08/18 @ 13:26 by Sammie Mcclain) Left renal mass (Chronic) Lung nodules (Chronic) History of renal cell cancer (Chronic) Presence of stent in coronary artery (Chronic) PTCA of RCA intracoronary stent January 2009 (bare metal) Premature atrial contractions (Chronic) Presence of aortocoronary bypass graft (Chronic) CABG X 4, JOE to LAD, SVG-D1 sequential - PDA1 & PDA 2 Paroxysmal atrial fibrillation (Chronic) H/O aortic valve replacement (Chronic) 07/25/15 @ [facility] Premature ventricular contractions (Chronic) 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) Hyperlipidemia (Chronic) Hypertension (Chronic) Osteoarthritis of left knee (Chronic) DM2 (diabetes mellitus, type 2) (Chronic) Chronic kidney disease (Chronic) Solitary kidney (Chronic) Hospital Course and Treatment Imaging Results: Diagnostic Data Chest X-Ray 11/10/18 06:30 IMPRESSION: Degenerative changes, as described above. No demonstrated acute cardiopulmonary process. Electronically Signed: Deborah Miller, at 7:41 EDT Tel , Service support , Lung Scan-VQ NM 11/10/18 09:41 IMPRESSION: 1. VERY LOW PROBABILITY FOR PULMONARY EMBOLUS (<10%) 99m Tc DTPA aerosol ventilation / 99m Tc MAA pulmonary perfusion imaging examination, according to PIOPED II interpretive criteria with regard given to the presence of > 2 ventilation-perfusion matches without corresponding radiographic changes. (Sotsman et al, Radiology 246: 941, 2008 Sotsman et al, J Nucl Med 49: 1741, 2008). 2. Central clumping of the aerosol may be secondary to obstructive airway mechanics and or clinical tachypnea. Electronically Signed: Dereje Arzola DO at 11:48 EDT Tel , Service support , Operations: None Procedures: None Summary of Care Provided: The patient is a 78 year old M with a past medical history as listed. He was admitted through the ED on 11/10/2018 with complaint of shortness of breath was started overnight. Patient states he became acutely short of breath with associated orthopnea and PND. His checked his pulse ox and noted that he was saturating in the 70s. He denied any cough or chest pain or palpitations, dizziness, lightheadedness, diarrhea vomiting. He does have a history of heart failure with preserved ejection fraction and was admitted about a month ago for similar condition and managed for acute on chronic exacerbation of diastolic heart failure. Patient is on Bumex and states that his dose was decreased at time of last discharge from twice daily to once daily on account of renal impairment. He denies any history of long distance travel or any history of DVT or PE. On arrival in the ED, he was saturating at 88% on 2 L of oxygen oxygen had been bumped up to 4 L. Vitals were otherwise stable and chemistry was significant for creatinine of 3.6 which is around his baseline. BNP was 604.7 and CBC was unremarkable. Chest x-ray showed bilateral atelectasis but no evidence of fluid overload. Initial troponin was negative. EKG showed normal sinus rhythm with a left bundle branch block. He has been admitted to be managed for acute on chronic diastolic CHF exacerbation. He had a V/Q scan which was negative for PE. He was started on IV bumetanide and oxygen was titrated to maintain saturation >90%. Patient remained stable and shortness of breath resolved. He was discharged home on 11/11/18. He is to follow up with his PCP and triage clinician. Per discussion with his triage clinician, patient was counselled that he could take an extra tablet of Bumetanide 2mg daily if his weith went up by ~ 2 pounds or more, or he felt like his shortness of breath was worsening. Patient seen and examined prior to discharge. He had no complaints and felt well. Review of systems was otherwise negative. Labs and vitals reviewed. Home medications reviewed and reconciled. o/e: Vital Signs Height 5 ft 10 in Weight: 190 lb 11.198 oz Weight in Pounds 190.7 lbs Pulse Ox 95 Temperature 98.5 F Pulse Rate 70 Respiratory Rate 16 Blood Pressure [2nd BP] 158/101 Blood Pressure 142/79 Blood Pressure Position [2nd Semi-Fowlers BP] Blood Pressure Position Sitting General: Alert, Oriented x3, Cooperative, No apparent distress HEENT: Atraumatic, PERRLA, EOMI, Normocephalic Oral: Moist Mucosa Neck: Supple, No JVD, Negative Carotid Bruits Lungs: - -clear to auscultation. No wheezes or crackles. Off oxygen and saturating well on 2L of oxygen. Cardiovascular: Regular rate, Regular Rhythm, Normal S1, Normal S2, No murmurs, - Abdomen: Bowel Sounds Present, Soft, Non Tender, Non-Distended, No Hepato-splenomegaly Extremities: No clubbing, No cyanosis, No edema, Capillary Refill Less than 3 Seconds Skin: No rashes, No breakdown Musculoskeletal: No Tenderness to Palpation of Joints or Extremities Lymphatic: No Cervical, Supraclavicular, or Inguinal Adenopathy Neurological: Cranial nerves II-XII grossly intact, Neuro grossly intact, Motor Exam 5/5 strength throughout Psych/Mental Status: Normal Affect, Appropriate, Alert and oriented to time, place, person, mood and affect Plan as above. - Physical Exam Vital Signs Temp Pulse Resp BP Pulse Ox 98.5 F 78 16 142/79 H 97 11/11/18 08:32 11/11/18 08:32 11/11/18 08:32 11/11/18 08:32 11/11/18 08:32 Oxygen Flow Rate (L/min) 2 Oxygen Delivery Method Room Air Weight: 190 lb 11.198 oz Body Mass Index (BMI) 26.7 Finger Stick Blood Glucose 122 Intake and Output for Last 24 Hours 11/09/18 11/10/18 11/11/18 23:59 23:59 23:59 Intake Total 750 / 750 60 / 60 Output Total 750 / 750 775 / 775 Balance 0 / 0 -715 / -715 Laboratory Tests Past 24 Hrs 11/11/18 11/11/18 05:50 05:50 WBC 5.3 RBC 3.10 L Hgb 9.2 L Hct 28.6 L MCV 92.3 MCH 29.7 MCHC 32.2 RDW 16.2 H RDW Differential 52.3 H Plt Count 124 L MPV 9.8 Immature Gran % (Auto) 0.200 Neut % (Auto) 69.2 Lymph % (Auto) 17.3 L Sargent % (Auto) 9.7 Eos % (Auto) 3.2 Baso % (Auto) 0.4 Absolute Neuts (auto) 3.7 Absolute Lymphs (auto) 0.91 Total Counted Not Reportable Sodium 142 Potassium 3.9 Chloride 108 H Carbon Dioxide 25.0 BUN 62 H Creatinine 3.69 H Estim Creat Clear Calc 17.04 Est GFR (MDRD) Af Amer 21 L Est GFR (MDRD) Non-Af 17 L BUN/Creatinine Ratio 16.8 Glucose 107 H Calcium 8.6 Phosphorus 3.7 Albumin 3.2 Discharge Diet: Low fat/ Low Cholesterol Discharge Activity: Return to Normal Activity Weight Bearing Status: Weight bearing as tolerated Call your doctor if you observe: Shortness of breath, Swelling in the ankles Home Medications: Medications to take at Discharge diltiazem ER (XR/XT) 180 mg capsule,extended release 24 hr, controlled 180 mg PO BID #180 cap 04/20/18 labetalol 100 mg tablet 100 mg PO BID #180 tab 04/20/18 Allopurinol 100 mg PO DAILY 09/28/18 Docusate Sodium [Colace] 100 mg PO DAILY 09/28/18 Iron Polysaccharide Complex [Ferrex 150] 150 mg PO BID 09/28/18 Albuterol Inhaler [Ventolin Hfa] 1 - 2 puff INHALATION Q4H PRN PRN #1 inhaler 09/30/18 Ascorbic Acid [C-1000] 1,000 mg PO BID 10/12/18 amoxicillin 500 mg capsule 500 mg PO TID #180 cap 10/19/18 bumetanide 2 mg tablet 2 mg PO DAILY 10/19/18 isosorbide mononitrate ER 60 mg tablet,extended release 24 hr 60 mg PO BID #120 tab 10/19/18 Cholecalciferol (Vitamin D3) [Vitamin D3] 2,000 unit PO MOWEFR 11/10/18 Cyanocobalamin (Vitamin B-12) [Vitamin B12] 2,500 mcg PO MOWEFR 11/10/18 Primary Care Physician: Dejuan Catherine DO [Primary Care Provider] - Please follow up with your Primary Care Physician in: one week Please Follow Up With: Ravi Frye MD When: one week Patient Instructions: Taking Medication to Control Heart Failure, What Is Heart Failure?, Heart Failure: Warning Signs of a Flare-Up, Discharge Instructions for Heart Failure Disposition: Home Minutes spent on discharge:: 40 Patient Condition:: Stable Medical Necessity - Tobacco Use Smoking Status: Former smoker Meaningful Use Info Meaningful Use Diagnoses (Choose all that apply): CHF - CHF SAKINA/ARB ordered at discharge?: No Reason SAKINA/ARB not ordered?: Worsening renal disease Documented LVEF (%): 53 Code Visit Inpatient E&M: 42870 Disch Hosp
[2018-11-11 10:53] VITALS: PULSE 70; RESP 16; O2SAT 95
== END 2018-11-11 10:33 | disposition home or self-care (01) ==
LOC: ED 07:08 → PCU 08:10
PROVIDERS: Admitting Provider Student in an Organized Health Care Education/Training Program; Emergency Provider Emergency Medicine; Family Provider Family Medicine; PCP Family Medicine; Visit Provider Student in an Organized Health Care Education/Training Program
DX: I13.0 Hypertensive heart and chronic kidney disease with heart failure and stage 1 through stage 4 chronic kidney disease, or unspecified chronic kidney disease (principal); I50.33 Acute on chronic diastolic (congestive) heart failure; N18.4 Chronic kidney disease, stage 4 (severe); E11.22 Type 2 diabetes mellitus with diabetic chronic kidney disease; E78.5 Hyperlipidemia, unspecified; R09.02 Hypoxemia; I48.0 Paroxysmal atrial fibrillation; I25.10 Atherosclerotic heart disease of native coronary artery without angina pectoris; Z95.2 Presence of prosthetic heart valve; Z85.528 Personal history of other malignant neoplasm of kidney; Z95.1 Presence of aortocoronary bypass graft; Z79.899 Other long term (current) drug therapy; Z87.891 Personal history of nicotine dependence; N28.89 Other specified disorders of kidney and ureter; D69.6 Thrombocytopenia, unspecified
CPT/HCPCS: 36415; 71045; 78582; 80048; 80069; 83735; 83880; 84484; 85025; 93005; 94640; 96372; 96374; 96376; 99218; 99283; A9540; A9567; A4216; G0378

== ENCOUNTER → 2018-11-24 | Outpatient (CLI) | payer MEDICARE, OTHER, SELFPAY ==
[2018-11-10 08:45] VITALS: BMI 26.7
== END | disposition home or self-care (01) ==
LOC: PSN 12:39
PROVIDERS: Family Provider Family Medicine; PCP Family Medicine; Referring Provider Family Medicine; Visit Provider Family Medicine
DX: R40.4 Transient alteration of awareness (principal); R55 Syncope and collapse; R00.1 Bradycardia, unspecified; I44.0 Atrioventricular block, first degree; I49.3 Ventricular premature depolarization; N18.4 Chronic kidney disease, stage 4 (severe)
CPT/HCPCS: 93225; 93226

== ENCOUNTER → 2018-12-03 | Outpatient (CLI) | payer MEDICARE, OTHER, SELFPAY ==
[2018-11-10 08:45] VITALS: BMI 26.7
--- NOTE | 2018-12-03 12:56 | VDUE_ITS ---
Reason For Study: CKD 4 Right Arm Left Arm Right Cephalic Vein at the wrist measures Left Cephalic Vein at the wrist measures 0.21 x 0.23 cm. 0.13 x 0.13 cm. Right Cephalic Vein in the forearm measures Left Cephalic Vein in the forearm measures 0.19 x 0.19 cm. 0.12 x 0.13 cm. Right Cephalic Vein below antecub measures Left Cephalic Vein below antecub measures 0.23 x 0.28 cm. 0.10 x 0.10 cm. Right Cephalic Vein above antecub measures Left Cephalic Vein above antecub measures 0.21 x 0.21 cm. 0.17 x 0.18 cm. Right Cephalic Vein mid bicep measures 0.19 Left Cephalic Vein at mid bicep measures x 0.19 cm. 0.18 x 0.18 cm. Right Cephalic Vein at the shoulder measures Left Cephalic Vein at the shoulder measures 0.20 x 0.23 cm. 0.22 x 0.24 cm. Right Basilic Vein at the origin measures Basilic vein at origin measures 0.50 x 0.48 0.61 x 0.67 cm. cm. Right Basilic Vein mid bicep measures 0.46 x Basilic vein at bicep measures 0.31x 0.31 0.47 cm. cm. Right Basilic Vein above antecub measures Basilic vein above antecub measures 0.33 x 0.35 x 0.34 cm. 0.35 cm. Right brachial artery measures 0.59 x 0.62 Left brachial artery measures 0.56 x 0.56 cm cm with a velocity of 59.7 cm/sec. with a velocity of 78.1 cm/sec. Right radial artery measures 0.31 x 0.32 cm Left brachial artery measures 0.25 x 0.28cm with a of 48.6 cm/sec. with a velocity of 58.4 cm/sec. Interpretation Summary Small to borderline right cephalic vein throughout Large right basilic vein Diminutive left cephalic vein throughout Adequate left upper arm basilic vein Normal flow bilateral radial and brachial arteries Ordering Physician: Juan Carlos Billings Referring Physician: Dejuan Catherine Performed By: Amanda Swartz RVT ?
== END | disposition home or self-care (01) ==
LOC: CVS 12:50
PROVIDERS: Family Provider Family Medicine; PCP Family Medicine; Referring Provider Internal Medicine Nephrology; Visit Provider Internal Medicine Nephrology
DX: Z01.818 Encounter for other preprocedural examination (principal); N18.4 Chronic kidney disease, stage 4 (severe)
CPT/HCPCS: 93970; 93971; G0365

== ENCOUNTER → 2018-12-21 | Outpatient (CLI) | payer MEDICARE, OTHER, SELFPAY ==
[2018-12-10 13:41] VITALS: BMI 26.7
[2018-12-17 12:57] VITALS: BMI 27.3
--- NOTE | 2018-12-21 12:54 | CDU_ITS ---
Reason For Study: SYNCOPE Rt. Velocities/BP Lt. Velocities/BP Prox CCA 71.6/9.0 cm/sec. Prox CCA 91.1/23.6 cm/sec. Mid CCA 70.3/10.3 cm/sec. Mid CCA 83.8/25.4 cm/sec. Dist CCA 79.4/15.5 cm/sec. Dist CCA 93.0/12.6 cm/sec. Prox ICA 113.1/23.6 cm/sec. Prox ICA 168.8/45.9 cm/sec. Mid ICA 113.1/27.2 cm/sec. Mid ICA 140.1/43.6 cm/sec. Dist ICA 91.3/20.2 cm/sec. Dist ICA 94.1/28.3 cm/sec. Rt. ICA/CCA = 113.1/79.4=1.4. Lt. ICA/CCA = 168.8/93.0=1.8. Prox ECA 71.6/5.1 cm/sec. Prox ECA 82.0/0.0 cm/sec. Rt. Vert. 41.6/14.2 cm/sec. Lt. Vert. 22.6/6.5 cm/sec. Right Extracranial There is heterogeneous, irregular atherosclerotic plaque noted in the right common carotid artery. There is heterogeneous, irregular atherosclerotic plaque noted in the right internal carotid artery. The tortuous nature of the right internal carotid artery may result in flow velocities overestimating the degree of stenosis. The atherosclerotic plaque causes acoustic shadowing. There is intimal thickening but no significant atherosclerotic plaque noted in the right external carotid artery. Antegrade flow is noted in the right vertebral artery. Left Extracranial There is heterogeneous, irregular atherosclerotic plaque noted in the left common carotid artery. There is heterogeneous, irregular atherosclerotic plaque noted in the left internal carotid artery. The tortuous nature of the left internal carotid artery may result in flow velocities overestimating the degree of stenosis. The atherosclerotic plaque causes acoustic shadowing. There is intimal thickening but no significant atherosclerotic plaque noted in the left external carotid artery. Antegrade flow is noted in the left vertebral artery. Procedure Carotid Duplex 19077. The study was technically difficult. The exam was diagnostic. Exam performed in department. Interpretation Summary Calcific irregular plague within the right internal carotid with <50% stenosis. Tortuous vessel. <50% stenosis right external carotid Calcific irregular plague within the left proximal internal carotid with tortuosity and 50-69% stenosis. <50% stenosis left external carotid Patent and antegrade bilateral vertebrals with moderately diminished flow on the left. No previous exams available for comparison Ordering Physician: Uche Mao Referring Physician: Dejuan Catherine Performed By: Kari Easley, RDHODAN, RVT
== END | disposition home or self-care (01) ==
LOC: CVS 12:53
PROVIDERS: Family Provider Family Medicine; PCP Family Medicine; Referring Provider Surgery; Visit Provider Surgery
DX: R55 Syncope and collapse (principal)
CPT/HCPCS: 93880

== ENCOUNTER 2019-01-05 09:43 | Day surgery (SDC) | payer MEDICARE, OTHER, SELFPAY ==
--- NOTE | 2018-12-10 03:31 | HP_ITS ---
Intake Vital Signs 12/10/18 Body Mass Index (BMI) 26.7 12/10/18 Height 5 ft 10 in 12/10/18 Weight: 190 lb 12/10/18 Body Mass Index (BMI) 27.2 12/10/18 Blood Pressure 151/80 H 12/10/18 Blood Pressure Location Rt brachial 12/10/18 Blood Pressure Position Sitting 12/10/18 Respiratory Rate 14 12/10/18 Pulse Rate 64 12/10/18 Pulse Source Monitor 12/10/18 Temperature 98.2 F 12/10/18 Temperature Source Oral 12/10/18 Pulse Ox 96 12/10/18 Oxygen Delivery Method room air Intake Visit Reasons: Consult Fistula /Kidney Disease 4 [facility] 12/03 Academic Guidance Specialist Required: No Is patient in pain?: No Allergies losartan potassium [From Cozaar] Allergy (Severe, Verified 12/10/18 13:36) Other valsartan [From Diovan HCT] Allergy (Severe, Verified 12/10/18 13:36) Other amlodipine besylate [From Norvasc] Allergy (Verified 12/10/18 13:36) Other doxazosin mesylate [From Cardura] Allergy (Verified 12/10/18 13:36) Other furosemide [From Lasix] Allergy (Verified 12/10/18 13:36) Other hydrochlorothiazide Allergy (Verified 12/10/18 13:36) Other metoprolol succinate [From Toprol XL] Allergy (Verified 12/10/18 13:36) Other simvastatin Allergy (Verified 12/10/18 13:36) Other atenolol Adverse Reaction (Severe, Verified 12/10/18 13:36) Potential to cause CVA? losartan [From Hyzaar] Adverse Reaction (Severe, Verified 12/10/18 13:36) Ineffective oxycodone [From OxyIR] Adverse Reaction (Severe, Verified 12/10/18 13:36) tremors acetaminophen [From Vicodin] Adverse Reaction (Verified 12/10/18 13:36) Other hydrocodone [From Vicodin] Adverse Reaction (Verified 12/10/18 13:36) Other vicodin Adverse Reaction (Severe, Uncoded 12/10/18 13:36) Other Hydrogenated Vegetable Oil Adverse Reaction (Uncoded 12/10/18 13:36) Upset Stomach Medications diltiazem ER (XR/XT) 180 mg capsule,extended release 24 hr, controlled 180 mg PO BID #180 cap 04/20/18 [Rx Confirmed 12/10/18] labetalol 100 mg tablet 100 mg PO BID #180 tab 04/20/18 [Rx Confirmed 12/10/18] Allopurinol 100 mg PO DAILY 09/28/18 [History Confirmed 12/10/18] Docusate Sodium [Colace] 100 mg PO DAILY 09/28/18 [History Confirmed 12/10/18] Iron Polysaccharide Complex [Ferrex 150] 150 mg PO BID 09/28/18 [History Confirmed 12/10/18] Albuterol Inhaler [Ventolin Hfa] 1 - 2 puff INHALATION Q4H PRN PRN #1 inhaler 09/30/18 [Rx Confirmed 12/10/18] Ascorbic Acid [C-1000] 1,000 mg PO BID 10/12/18 [History Confirmed 12/10/18] amoxicillin 500 mg capsule 500 mg PO TID #180 cap 10/19/18 [Rx Confirmed 12/10/18] bumetanide 2 mg tablet 2 mg PO DAILY 10/19/18 [History Confirmed 12/10/18] isosorbide mononitrate ER 60 mg tablet,extended release 24 hr 60 mg PO BID #120 tab 10/19/18 [Rx Confirmed 12/10/18] Cholecalciferol (Vitamin D3) [Vitamin D3] 2,000 unit PO MOWEFR 11/10/18 [History Confirmed 12/10/18] Cyanocobalamin (Vitamin B-12) [Vitamin B12] 2,500 mcg PO MOWEFR 11/10/18 [History Confirmed 12/10/18] [facility] Medical History Syncope and collapse (Acute) Atherosclerotic heart disease of [place] coronary artery without angina pectoris (Chronic) Nonrheumatic aortic (valve) stenosis (Chronic) Left renal mass (Acute) Cancer of right kidney (Acute) S/p nephrectomy (Acute) Flu (Acute) Chronic diastolic (congestive) heart failure (Chronic) Premature atrial contractions (Chronic) Paroxysmal atrial fibrillation (Chronic) Premature ventricular contractions (Chronic) 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) Hyperlipidemia (Chronic) Hypertension (Chronic) Osteoarthritis of left knee (Chronic) DM2 (diabetes mellitus, type 2) (Chronic) Chronic kidney disease (Chronic) Solitary kidney (Chronic) VINOD (acute kidney injury) (Resolved) Bacteremia due to Enterococcus (Resolved) Septic arthritis (Resolved) Encounter for adjustment or management of vascular access device (Inactive) Surgical History Hx of umbilical hernia repair (Acute) History of left knee replacement (Acute) H/O hemorrhoidectomy (Acute) port placement (Acute) port removal (Acute) Presence of stent in coronary artery (Chronic) Presence of aortocoronary bypass graft (Chronic) H/O aortic valve replacement (Chronic) Family History Father CAD (coronary artery disease) Mother Hypertension Breast cancer Heart disease Brother Diabetes Social History Smoking Status: Former smoker second hand exposure: No alcohol intake: never substance use type: does not use caffeine: No what type of physical activity do you participate in: none frequency: does not exercise seatbelt use: always HPI HPI HPI: AMELIE ERICKSON, is a 78 M who presents to the office today for HPI HPI Surgical H&P: Yes HPI: AMELIE ERICKSON, is a 78 M who presents to the office today for surgical consultation regarding arteriovenous hemodialysis fistula creation. He is referred to me by Dr. Billings and a written copy of my surgical consult recommendations will be returned to him Rather complicated though very pleasant 78-year-old gentleman. Claims that one year ago he was septic from a left total knee and spent 47 days hospitalized. More recently after the flu approximately in October he was hospitalized with congestive heart failure. He has stage IV chronic renal insufficiency. He has had history of right kidney cancer in her right nephrectomy. He is right arm dominant. He has lung nodules that are being followed by Dr. Asa Fong he has not had surgical intervention regarding that. He has had a history of cardiac bypass surgery but had significant amount of blood loss during that procedure requiring multiple units of transfusion. He also because of chronic anemia has had additional blood transfusions. His made special comment that within the past couple weeks the patient had a episode while sitting at the table of sudden syncope. The patient claims that he had just taken his medications on an empty stomach. When he was seen in the office by Dr. Dejuan Catherine however by patient report his EKG was abnormal with pauses. The patient does have a road cleaner Dr. Ravi Frye and he has an appointment for follow-up soon. In preparation for creation of an arteriovenous hemodialysis fistula on December 03 the patient had bilateral upper extremity vein mapping. The patient is right arm dominant As of October 18, 2018 BUN is 56 with a creatinine of 3.65 and an estimated GFR of 17 [facility] [address] [place] [address] Saphenous Vein Mapping, Bilat 12/03/18 1308 MR#: [id number] Name: AMELIE ERICKSON Jr.Rep #:[id number] : 1940 78From: Uche Mao MD Attending Dr: SHERRILL Malonetatus: REG CLI Ordering Dr: Juan Carlos Billings MDDate: 12/03/18 Location:CVSSex: Admitted: Reason For Study: CKD 4 Right Arm Left Arm Right Cephalic Vein at the wrist measures Left Cephalic Vein at the wrist measures 0.21 x 0.23 cm. 0.13 x 0.13 cm. Right Cephalic Vein in the forearm measures Left Cephalic Vein in the forearm measures 0.19 x 0.19 cm. 0.12 x 0.13 cm. Right Cephalic Vein below antecub measures Left Cephalic Vein below antecub measures 0.23 x 0.28 cm. 0.10 x 0.10 cm. Right Cephalic Vein above antecub measures Left Cephalic Vein above antecub measures 0.21 x 0.21 cm. 0.17 x 0.18 cm. Right Cephalic Vein mid bicep measures 0.19 Left Cephalic Vein at mid bicep measures x 0.19 cm. 0.18 x 0.18 cm. Right Cephalic Vein at the shoulder measures Left Cephalic Vein at the shoulder measures 0.20 x 0.23 cm. 0.22 x 0.24 cm. Right Basilic Vein at the origin measures Basilic vein at origin measures 0.50 x 0.48 0.61 x 0.67 cm. cm. Right Basilic Vein mid bicep measures 0.46 x Basilic vein at bicep measures 0.31x 0.31 0.47 cm. cm. Right Basilic Vein above antecub measures Basilic vein above antecub measures 0.33 x 0.35 x 0.34 cm. 0.35 cm. Right brachial artery measures 0.59 x 0.62 Left brachial artery measures 0.56 x 0.56 cm cm with a velocity of 59.7 cm/sec. with a velocity of 78.1 cm/sec. Right radial artery measures 0.31 x 0.32 cm Left brachial artery measures 0.25 x 0.28cm with a of 48.6 cm/sec. with a velocity of 58.4 cm/sec. Interpretation Summary Small to borderline right cephalic vein throughout Large right basilic vein Diminutive left cephalic vein throughout Adequate left upper arm basilic vein Normal flow bilateral radial and brachial arteries Ordering Physician: Juan Carlos Billings Referring Physician: Dejuan Catherine Performed By: Amanda Swartz T ? 12/03/18 1401 Date Uche Mao MD CC: Juan Carlos Billings MD; Dejuan Catherine DO ~ Date Dictated:12/03/18 1308 Date Transcribed: 12/03/18 1401 Herbarium Curator: MJ General General: Yes fatigue; no weight change, appetite, colon cancer, breast cancer or weakness HEENT HEENT: Yes eye surgery; no difficulty swallowing, eye injury, swollen glands or hoarseness Endo Endocrine: Yes diabetes mellitus; no thyroid disease, thyroid cancer, Hair loss, heat intolerance or cold intolerance Skin Skin: No rash or changing moles Musc Musculoskeletal: Yes rheumatoid arthritis; no back problems, arthritis, gout or joint pain Cardio Cardiovascular: Yes murmur, heart disease, high blood pressure, heart attack and heart stent; no pacemaker, atrial fibrillation, palpitations, shortness of breat with exertion or chest pain Psych Psychiatric: No depression, anxiety or hearing voices Resp Respiratory: Yes shortness of breath, No sleep apnea, No cough, No COPD, No asthma, No emphysema, No wheezing Gastro Gastrointestinal: No abdominal pain, No nausea or vomiting, No diarrhea, No constipation, No blood in stool, No acid reflux, No hemorrhoids, No ulcers, No gallbladder problem, No black,tarry stools Ashvin Hematologic: No blood thinners, Yes blood disorders, No bleeding, Yes anemia, No blood clots Neuro Neurologic: No system reviewed and no additional complaints, except as docu, No as per HPI, No abnormal walking, No abnormal hearing, No abnormal movements, No abnormal speech, No behavioral changes, No burning sensations, No confusion, No seizure-like activity, No unsteadiness, No dizziness, No localized weakness, No frequent falls, No headache(s), No lack of coordination, No loss of vision, No memory loss, No numbness, No other visual disturbances, No radiating pain, No restless legs, No sensory deficit, No fainting, No tingling, No tremor(s), No weakness, No other Exam Const General: cooperative, comfortable, no acute distress Nutritional Appearance: average body habitus Orientation: alert, awake, oriented x3 HENMT Head: normal to inspection Eyes General: appearance normal, both eyes and all related structures Resp Effort & Inspection: normal respiratory effort Auscultation: clear to auscultation bilaterally Cardio Heart Sounds: murmur Other: Markedly irregular iliac rate with harsh 3/6 systolic ejection murmur Bilateral radials and brachials are 3+ GI Palpation: soft Auscultation: normal bowel sounds Skin Other: Bilateral dorsal hands and forearms multiple areas of superficial ecchymosis Neuro General: alert, awake Cognition: normal cognition Extrem Other: 3+ bilateral lower extremity pitting edema Psych Affect: normal affect Assessment & Plan Problems 1. Chronic renal failure, stage 4 (severe) N18.4 Plan 78-year-old gentleman with chronic renal insufficiency stage IV. Bilateral cephalic veins are diminutive. Bilateral basilic veins of the upper arm are adequate. He is right arm dominant. I proposed for him stage I left upper extremity basilic vein to brachial artery AV fistula creation. With his present I discussed the technique, benefit, risks, alternatives. The patient cautions me that he bleeds very easily even though he is not on any anticoagulant. Because of his syncopal episode I recommend that we obtain carotid duplex imaging. The patient also has an appointment set up with road cleaner Dr. Ravi Frye. The patient is aware that I will need preoperative clearance in order to proceed. He is aware that we perform this procedure with monitored anesthesia care and local anesthetic. Additionally he is aware that a slightly more complex stage II transposition procedure would be required in the future. He has had an opportunity to ask and have questions answered. We will schedule and proceed as noted. I very much appreciate the kind opportunity of assisting with his surgical care. cc: Dr Juan Carlos Billings and Dr Dejuan Catherine and Dr Ravi Mao M.D., F.A.C.S. Orders Orders: Carotid Duplex Ultrasound Today R55 Coding Level of Care Code Comprehensive,moderate Diagnoses Chronic renal failure, stage 4 (severe) N18.4 12/10/18 1531 <Electronically signed by Uche browning MD> Date _ Uche Mao MD I have re-examined the patient. There are no clinical changes since date of exam.
[2018-12-10 13:41] VITALS: BMI 26.7
[2018-12-17 12:57] VITALS: BMI 27.3
[2018-12-30 12:47] LABS: Hemoglobin 9.7 g/dl (13.0-16.5); Mean Corp Hgb Conc 32.3 g/gl (32-36); Mean Corpuscular Hgb 29.8 pg (27.0-32.0); Mean Corpuscular Volume 92.3 fL (80-94); Mean Platelet Vol. 9.4 fl (6.2-12.0); Platelet Count 129 K/mm3 (150-450); RBC Distribution Width CV 15.1 % (11.6-14.6); RBC Distribution Width SD 51.6 fl (35.1-43.9); Red Blood Count 3.25 M/mm3 (4.6-6.2); White Blood Count 5.8 K/mm3 (4.4-11.0)
[2018-12-30 12:51] LABS: Scan Indicated on CBC? Y/N NO
[2018-12-30 13:12] LABS: Anion Gap 4 (5-15); BUN 48 mg/dL (7-18); BUN/Creat Ratio 15.4 RATIO (10-20); Calcium,Total 9.3 mg/dL (8.5-10.1); Chloride 105 mmol/L (98-107); Creatinine, Serum 3.12 mg/dL (0.70-1.30); EST Glomerular Filtration Rate 21 mL/min (>60); Est Glom Filt Rate - Afr Amer 25 mL/min (>60); Glucose 115 mg/dL (74-106); Potassium 3.7 mmol/L (3.5-5.1); Sodium Level 138 mmol/L (136-145)
[2019-01-05 10:11] VITALS: BP 150/80; PULSE 60; RESP 16; TEMP 36.2; O2SAT 97; BMI 27.3
[2019-01-05 10:25] LABS: Bedside Glucose 118 mg/dL (70-110)
--- NOTE | 2019-01-05 12:23 | DCINST_ITS ---
Discharge Diet: Renal Diet Discharge Activity: May Not Drive - for 2-3 days or while taking narcotic pain medications., May Shower, May Take a Tub Bath - in 5 days. May shower in (days): 2 Lifting Restrictions: 5 pounds Keep extremity elevated above heart level: - - Keep arm elevated above the heart level for 3 days. Additional Activity Instructions:: Exercise hand vigorously with a stress ball. Call your doctor if your incision/area has: Continuous Slow Oozing, Sudden Increased Bleeding - apply pressure and call your doctor., Increased Pain/ Swelling, Increased Redness, Foul Smelling Discharge Call your doctor if you observe: Fever of 101 or Higher Suture Line Care: Avoid Pulling/Pushing, Avoid Pinching/Bending Cleanse incision/area with: Keep Dressing Clean & Dry Additional Dressing/Incision Instructions:: Change or remove dressing in one day. May protect with a gauze bandaid. Allergies/Adverse Reactions: Allergies acetaminophen [From Vicodin] Allergy (Verified 01/05/19 10:09) Other amlodipine Allergy (Verified 01/05/19 10:09) Other doxazosin Allergy (Verified 01/05/19 10:09) Other furosemide Allergy (Verified 01/05/19 10:09) Other hydrochlorothiazide Allergy (Verified 01/05/19 10:09) Other hydrocodone [From Vicodin] Allergy (Verified 01/05/19 10:09) Other losartan Allergy (Verified 01/05/19 10:09) Other metoprolol Allergy (Verified 01/05/19 10:09) Other NSAIDS (Non-Steroidal Anti-Inflamma Allergy (Verified 01/05/19 10:09) Other PT ONLY HAS 1 KIDNEY oxycodone Allergy (Verified 01/05/19 10:09) Other simvastatin Allergy (Verified 01/05/19 10:09) Other valsartan Allergy (Verified 01/05/19 10:09) Other HYDROGENATED VEGETABLE OIL Allergy (Uncoded 01/05/19 10:09) Upset Stomach Medications to take at Discharge diltiazem ER (XR/XT) 180 mg capsule,extended release 24 hr, controlled 180 mg PO BID #180 cap 04/20/18 labetalol 100 mg tablet 100 mg PO BID #180 tab 04/20/18 Allopurinol 100 mg PO DAILY 09/28/18 Docusate Sodium [Colace] 100 mg PO DAILY 09/28/18 Iron Polysaccharide Complex [Ferrex 150] 150 mg PO BID 09/28/18 Albuterol Inhaler [Ventolin Hfa] 1 - 2 puff INHALATION Q4H PRN PRN #1 inhaler 09/30/18 Ascorbic Acid [C-1000] 1,000 mg PO BID 10/12/18 amoxicillin 500 mg capsule 500 mg PO TID #180 cap 10/19/18 bumetanide 2 mg tablet 2 mg PO DAILY 10/19/18 isosorbide mononitrate ER 60 mg tablet,extended release 24 hr 60 mg PO BID #120 tab 10/19/18 Cholecalciferol (Vitamin D3) [Vitamin D3] 2,000 unit PO MOWEFR 11/10/18 Cyanocobalamin (Vitamin B-12) [Vitamin B12] 2,500 mcg PO MOWEFR 11/10/18 Lactobacillus Acidophilus [Probiotic Acidophilus] 1 ea PO DAILY 12/29/18 Multivitamin [Daily Multiple Vitamin] 1 ea PO QODAY 12/29/18 Primary Care Physician: Dejuan Catherine DO [Primary Care Provider] - Test Results: Test results from this visit will be discussed in further detail at your follow- up appointment, if applicable. Please Follow Up With: Uche Mao MD - [phone] When: Call to make an appointment for follow up in 10-14 days
[2019-01-05] MEDS: Heparin Injection (Vial) 5,000 UNIT/ML VIAL 5000 UNIT (13:25)
[2019-01-05] MEDS: Bupivacaine 0.25% 30 ML Vial (13:34)
--- NOTE | 2019-01-05 13:40 | PCM.OPRPT ---
Problem List (1) Chronic renal failure, stage 4 (severe) Status: Chronic Report of Operation Date of Procedure: 01/05/19 Pre-Operative Diagnosis: Stage IV chronic renal insufficiency Post-Operative Diagnosis: Same Surgery/Procedure Performed:: Stage I left upper arm brachial to basilic arteriovenous hemodialysis fistula creation Description of Surgical Findings:: Timeout and informed consent was obtained. 78-year-old gentleman was taken the operative placement table underwent monitored anesthesia care local anesthetic. The left upper extremity was sterilely prepped and draped. Ultrasound was used to map out the course of the left upper arm basilic vein. 1% lidocaine mixed 50-50 with 0.5% Marcaine was used as a local anesthetic. A total of 8 cc was used. An oblique incision was made in the medial left upper arm close to the antecubital space sharp and blunt dissection was used to identify the basilic vein which was dissected free. Sharp and blunt dissection was decided to identify the brachial artery. It is of note that the brachial artery had a significant amount of atheromatous material within the wall. The patient received 7000 units of heparin. Had a side branch the basilic vein was ligated distally with a Hemoclip and then it was spatulated. Peripheral vascular clamps were placed on the brachial artery and 11 blade was used to make an arteriotomy which was extended with Rinaldi scissors. The soft grumous plaque was carefully aspirated. A end-to-side venous to arterial anastomosis created with running 7-0 Prolene. Several interrupted 7-0 Prolene repair sutures were required. Hemostasis was achieved. The side branch of the basilic vein was nicely filling. There was still filling of the basilic vein at a junction point extending down into the proximal left forearm as well as up the left upper arm which will eventually give extra length for the fistula. There was a good pulse and thrill and bruit within the fistula. The hand was viable with a 3+ left radial pulse. The wound was closed with interrupted 3-0 Vicryl subdermal stitch. Skin edges proximal running septic or 4-0 Monocryl. Steri-Strips Telfa and tape dressings applied. Sponge and instrument and needle counts were reported to the surgeon for correct. Blood loss was minimal. He tolerated the procedure well was taken to the recovery area in satisfactory condition without apparent complication. Specimen none. Drains none. Blood loss minimal. Uche Mao M.D., F.A.C.S. Type of Anesthesia:: Local MAC Anesthesiologist: Denys Crowley
[2019-01-05 13:45] VITALS: BP 134/63; BP 150/80; PULSE 66; RESP 16; TEMP 37.2; O2SAT 97
[2019-01-05 13:50] VITALS: BP 150/80; BP 153/78; PULSE 71; RESP 16; O2SAT 97
[2019-01-05 13:55] VITALS: BP 144/82; BP 150/80; PULSE 73; RESP 16; O2SAT 97
[2019-01-05 14:02] VITALS: BP 146/82; BP 150/80; PULSE 75; RESP 16; TEMP 36.6; O2SAT 97
[2019-01-05 14:39] VITALS: BP 137/74; BP 150/80; PULSE 67; RESP 18; TEMP 36.3; O2SAT 97
== END 2019-01-05 16:35 | disposition home or self-care (01) ==
LOC: SDC 09:44 → AC 09:45
PROVIDERS: Family Provider Family Medicine; PCP Family Medicine; Referring Provider Surgery; Visit Provider Surgery
PROC: (CPT 36821; principal; 2019-01-05 11:45)
DX: I13.0 Hypertensive heart and chronic kidney disease with heart failure and stage 1 through stage 4 chronic kidney disease, or unspecified chronic kidney disease (principal); E11.22 Type 2 diabetes mellitus with diabetic chronic kidney disease; N18.4 Chronic kidney disease, stage 4 (severe); I50.32 Chronic diastolic (congestive) heart failure; I25.10 Atherosclerotic heart disease of native coronary artery without angina pectoris; I48.0 Paroxysmal atrial fibrillation; E78.5 Hyperlipidemia, unspecified; M19.90 Unspecified osteoarthritis, unspecified site; I25.2 Old myocardial infarction; J44.9 Chronic obstructive pulmonary disease, unspecified; D64.9 Anemia, unspecified; Z87.891 Personal history of nicotine dependence; Z85.528 Personal history of other malignant neoplasm of kidney; Z95.1 Presence of aortocoronary bypass graft; Z79.51 Long term (current) use of inhaled steroids; Z79.899 Other long term (current) drug therapy
CPT/HCPCS: 36821; 36415; 80048; 82962; 85027

== ENCOUNTER 2019-01-09 12:34 | Inpatient (IN) | payer MEDICARE, OTHER, SELFPAY ==
[2019-01-09] VITALS (11 sets, daily range): BP systolic 143–198; BP diastolic 89–98; PULSE 82–104; RESP 14–22; TEMP 36.5–36.9; O2SAT 85–97; BMI 26.2; BMI 26.4
--- NOTE | 2019-01-09 12:56 | EKG12_ITS ---
Test Reason : CP Blood Pressure : / mmHG Vent. Rate : 108 BPM Atrial Rate : 108 BPM P-R Int : 160 ms QRS Dur : 136 ms QT Int : 396 ms P-R-T Axes : 000 031 119 degrees QTc Int : 530 ms Atrial fibrillation Non-specific intra-ventricular conduction block T wave abnormality, consider lateral ischemia Abnormal ECG Confirmed by NAVDEEP WILLIS, ANJELICA ([id number]), editor publications GAURI WITT ([id number]) on 01/11/2019 2:06:00 PM Referred By: Alysia Lopez Confirmed By:ANJELICA SETHI MD
--- NOTE | 2019-01-09 12:56 | RAD_ITS ---
STUDY: X-RAY CHEST REASON FOR EXAM: Male, 78 years old. CABG TECHNIQUE: Frontal view COMPARISON: November 10, 2018 FINDINGS: The lungs are expanded. Bilateral interstitial prominence. Small left pleural effusion with basilar focal infiltrate/atelectasis. Mild right basilar atelectasis. Cardiomegaly. Normal mediastinum and coco. Normal visualized pulmonary arteries. Calcified aortic arch and descending thoracic aorta. Normal visualized thoracic spine. Normal visualized ribs, clavicles, and shoulders. There is no demonstrated abnormality of the visualized soft tissue structures of the upper abdomen. RAD/Chest 1 View (Portable) IMPRESSION: Bilateral interstitial prominence. Small left pleural effusion with basilar focal infiltrate/atelectasis. Mild right basilar atelectasis Cardiomegaly. Electronically Signed: Dariel Rivera DO at 14:20 EDT Tel [phone], Service support ,
--- NOTE | 2019-01-09 12:57 | CT_ITS ---
STUDY: CT BRAIN WITHOUT CONTRAST REASON FOR EXAM: Male, 78 years old. Headache left side left-sided chest pain RADIATION DOSAGE (If Supplied By Facility): CTDIvol = ( 44.99 ) mGy, DLP = ( 796.11 ) mGycm TECHNIQUE: Transaxial CT imaging of the brain was performed without administration of intravenous contrast material. Individualized dose optimization techniques were used for this CT. COMPARISON: No relevant priors. FINDINGS: Normal soft tissue structures. Normal calvarium. There is dense calcification of the visualized vertebral arteries and cavernous carotid arteries. There is moderate cerebral atrophy with widening of the extra-axial spaces and ventricular dilatation. There are areas of decreased attenuation within the white matter tracts of the supratentorial brain, consistent with microvascular disease changes. There is stable low attenuation within the anterior limb of the left internal capsule compatible with prior ischemic change.. Normal brainstem. There is mild cerebellar atrophy. There is no intracranial hemorrhage. There are no findings of an acute ischemic infarction. Normal visualized paranasal sinuses. There is a variant hypertrophied appearance of the bones surrounding the teeth at the level of the maxilla. There is a maxillary mucosal retention cyst on the right side. CT/Brain/Head without Contrast IMPRESSION: Atrophy and old ischemic change in the left anterior limb of the internal capsule basal ganglia Atherosclerotic disease of vertebral arteries and cavernous carotid arteries. Electronically Signed: Pat Hanna MD at 14:48 EDT Tel , Service support ,
[2019-01-09] MEDS: Nitroglycerin Oint 1 INCH PACKET TRANSDERM. (13:07)
[2019-01-09 13:10] LABS: Absolute Lymphocyte Count 0.77 X10^3/ul (0.83-4.51); Basophil# 0.03 X10^3/uL; Basophil% 0.4 % (0-1); Eosinophil# 0.22 X10^3/uL; Hematocrit 30.1 % (40-54); Hemoglobin 9.8 g/dl (13.0-16.5); Lymphocyte # 0.77 X10^3/ul (4.0); Lymphocyte % 10.4 % (19-41); Mean Corp Hgb Conc 32.6 g/gl (32-36); Mean Corpuscular Hgb 30.2 pg (27.0-32.0); Mean Corpuscular Volume 92.9 fL (80-94); Mean Platelet Vol. 9.7 fl (6.2-12.0); Monocyte# 0.32 X10^3/uL; Monocyte% 4.3 % (0-10); Neutrophil # 6.03 X10^3/uL (2.7-7.7); Neutrophil % 81.8 % (47-70); POSITIVE COUNT NO; POSITIVE DIFFERENTIAL NO; POSITIVE MORPHOLOGY NO; Platelet Count 136 K/mm3 (150-450); RBC Distribution Width CV 15.1 % (11.6-14.6); RBC Distribution Width SD 51.6 fl (35.1-43.9); Red Blood Count 3.24 M/mm3 (4.6-6.2); White Blood Count 7.4 K/mm3 (4.4-11.0)
[2019-01-09 13:27] LABS: Anion Gap 7 (5-15); BUN 56 mg/dL (7-18); BUN/Creat Ratio 16.4 RATIO (10-20); Calcium,Total 9.3 mg/dL (8.5-10.1); Chloride 102 mmol/L (98-107); Creatinine, Serum 3.42 mg/dL (0.70-1.30); EST Glomerular Filtration Rate 19 mL/min (>60); Est Glom Filt Rate - Afr Amer 23 mL/min (>60); Estimated Creatinine Clearance 18.38 ml/min; Glucose 251 mg/dL (74-106); Potassium 3.8 mmol/L (3.5-5.1); Sodium Level 135 mmol/L (136-145)
--- NOTE | 2019-01-09 13:53 | ED.VISSUMM ---
- ER Visit Summary Date of Service: 01/09/19 Chief Complaint: [Chest pain] History of Present Illness: The patient is a 78 M [the emergency department chest discomfort that started mostly today. Patient has an area that is relatively pinpoint over the left chest that causes pain but he has some radiation into his left shoulders. Is a hard time describing the pain. He also has been complaining of shortness of breath and has been having headaches off and on for the last 2 days. Patient had surgery on his left arm recently in preparation for a fistula to be placed to his left arm for dialysis. Patient has history of chronic renal failure and history of A. fib. Patient with history of diabetes, hypertension, high cholesterol, CHF, coronary artery disease.] Physical Examination: [HEENT-PERRLA, EOMI. Cranial nerves II through XII grossly intact. TMs clear. Mucous membranes moist. No adenopathy. Cardiovascular-regular rate and rhythm without murmur or ectopy Lungs-aeration bilaterally. Patient has rales in both bases. Patient has mild tachypnea. Patient is hypoxic with O2 sat in the mid 80s on room air. Abdomen-normoactive bowel sounds, soft, nontender, no rebound or rigidity, no peritoneal signs. Extremities-intact ?4, normal range of motion, normal pulses, atraumatic. Patient has 1 edema both lower extremities and symmetric.] Test Results: [EKG obtained arrival showed sinus rhythm with a ventricular rate of 105 bpm with occasional PACs. Patient had some nonspecific ST changes. CBC with differential 7.2, hemoglobin 9.8, hematocrit 30, plates 136. Chemistries unremarkable. BUN is 56 and creatinine 3.42. BNP was 705. Troponin is less than 0.015.] CT scan of the brain without contrast showed chronic involutional changes otherwise nothing acute. Chest x-ray was read by radiology as left small pleural effusion as well as cardiomegaly and basilar infiltrates versus atelectasis. Emergency Department Course and Treatment: [Patient had an inch of Nitropaste placed to the anterior chest wall. Was given Lasix 80 mg IV.] Treatment Plan: [Plan patient will be admitted for further work-up and treatment of his hypoxemia. I suspect likely symptoms related to congestive heart failure.] Disposition: [Admit] Impression: [Chest pain Hypoxemia CHF] This note was generated with [employer] dictation software. It may contain incorrect words, spelling, and punctuation that were not noted in review of the chart prior to signing ED Disposition - Plan for ED Patient: Referrals: Dejuan Catherine DO [Primary Care Provider] -
[2019-01-09] MEDS: Bumetanide 1 MG/4 ML Vial IV (14:14)
--- NOTE | 2019-01-09 15:15 | NURSING ---
PCU TYRONE CP, CHF, HYPOXIA
--- NOTE | 2019-01-09 16:09 | PCM.HP.STD ---
History of Present Illness Date of Admission: 01/09/19 Chief Complaint: Shortness of breath The patient is a 78 year old M with an extensive past medical history as listed. He was admitted to the ED on 01/09/2019 with a complaint of shortness of breath which started 1 day before admission. He had assisted orthopnea and PND as well as left-sided chest pain which is chronic. Patient was admitted about 2 months ago for similar condition. On admission he was noted to be hypoxic in the ED and was saturating in the 80s. He denied any palpitation, lightheadedness, dizziness, diarrhea or vomiting. Patient recently had a fistula placed in his left upper extremity in preparation for dialysis just about 5 days ago. He has been compliant with his Bumex and states his been told to increase the dose if his weight goes up. However with his shortness of breath, his weight has however remained stable. He denied any history of long distance travel or any history of DVT or PE. On admission in the ED, he was noted to have elevated blood pressure 180/92 and was tachycardic with heart rate of 102. Respiratory rate was 14. He was saturating 95% on 3.5 L of oxygen. Labs were significant for sodium of 135 and creatinine of 3.42 with BNP of 705. CBC showed hemoglobin of 9.8. Initial troponin was negative. Chest x-ray showed bilateral interstitial prominence with small left pleural effusion with basilar focal infiltrate versus atelectasis and cardiomegaly. He also had a brain CT which was negative for any acute intracranial process. He has been admitted to be managed for acute on chronic diastolic heart failure exacerbation and acute hypoxic respiratory failure due to acute on chronic heart failure. [] Past Medical History Past Medical History (Chronic Problems): Chronic Problems (Last Reviewed 12/17/18 @ 13:50 by Ravi Frye MD) Chronic renal failure, stage 4 (severe) (Chronic) Atherosclerotic heart disease of [place] coronary artery without angina pectoris (Chronic) CABG X 4, JOE to LAD, SVG-D1 sequential - PDA1 & PDA 07 July 2015 at [facility] in [place]; PTCA of RCA intracoronary stent January 2009 (bare metal) Nonrheumatic aortic (valve) stenosis (Chronic) Chronic diastolic (congestive) heart failure (Chronic) Left renal mass (Chronic) Lung nodules (Chronic) History of renal cell cancer (Chronic) Presence of stent in coronary artery (Chronic) PTCA of RCA intracoronary stent January 2009 (bare metal) Premature atrial contractions (Chronic) Presence of aortocoronary bypass graft (Chronic) CABG X 4, JOE to LAD, SVG-D1 sequential - PDA1 & PDA 2 Paroxysmal atrial fibrillation (Chronic) H/O aortic valve replacement (Chronic) 07/25/15 @ [facility] Premature ventricular contractions (Chronic) 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) Hyperlipidemia (Chronic) Hypertension (Chronic) Osteoarthritis of left knee (Chronic) DM2 (diabetes mellitus, type 2) (Chronic) Chronic kidney disease (Chronic) Solitary kidney (Chronic) Medical History: Medical History (Last Reviewed 12/17/18 @ 13:50 by Ravi Frye MD) Chronic renal failure, stage 4 (severe) (Chronic) N18.4 Syncope and collapse (Acute) R55 Atherosclerotic heart disease of [place] coronary artery without angina pectoris (Chronic) I25.10 CABG X 4, JOE to LAD, SVG-D1 sequential - PDA1 & PDA 07 July 2015 at [facility] in [place]; PTCA of RCA intracoronary stent January 2009 (bare metal) Nonrheumatic aortic (valve) stenosis (Chronic) I35.0 Left renal mass (Acute) N28.89 Cancer of right kidney (Acute) C64.1 S/P nephrectomy on January 13, 2016 at S/p nephrectomy (Acute) Z90.5 right Flu (Acute) J11.1 Chronic diastolic (congestive) heart failure (Chronic) I50.32 Premature atrial contractions (Chronic) I49.1 Paroxysmal atrial fibrillation (Chronic) I48.0 Premature ventricular contractions (Chronic) I49.3 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) M00.9 Hyperlipidemia (Chronic) E78.5 Hypertension (Chronic) I10 Osteoarthritis of left knee (Chronic) M17.12 DM2 (diabetes mellitus, type 2) (Chronic) E11.9 Chronic kidney disease (Chronic) N18.9 Solitary kidney (Chronic) Q60.0 VINOD (acute kidney injury) (Resolved) N17.9 Bacteremia due to Enterococcus (Resolved) R78.81, B95.2 Septic arthritis (Resolved) M00.9 Encounter for adjustment or management of vascular access device (Inactive) Z45.2 Allergies acetaminophen [From Vicodin] Allergy (Verified 01/09/19 12:43) Other amlodipine Allergy (Verified 01/09/19 12:43) Other doxazosin Allergy (Verified 01/09/19 12:43) Other furosemide Allergy (Verified 01/09/19 12:43) Other hydrochlorothiazide Allergy (Verified 01/09/19 12:43) Other hydrocodone [From Vicodin] Allergy (Verified 01/09/19 12:43) Other losartan Allergy (Verified 01/09/19 12:43) Other metoprolol Allergy (Verified 01/09/19 12:43) Other NSAIDS (Non-Steroidal Anti-Inflamma Allergy (Verified 01/09/19 12:43) Other PT ONLY HAS 1 KIDNEY oxycodone Allergy (Verified 01/09/19 12:43) Other simvastatin Allergy (Verified 01/09/19 12:43) Other valsartan Allergy (Verified 01/09/19 12:43) Other HYDROGENATED VEGETABLE OIL Allergy (Uncoded 01/09/19 12:43) Upset Stomach Home Medications: Ambulatory Orders Medication Instructions Recorded diltiazem ER (XR/XT) 180 mg 180 mg PO BID #180 cap 04/20/18 capsule,extended release 24 hr, controlled labetalol 100 mg tablet 100 mg PO BID #180 tab 04/20/18 Allopurinol 100 mg PO DAILY 09/28/18 Docusate Sodium [Colace] 100 mg PO DAILY 09/28/18 Iron Polysaccharide Complex 150 mg PO BID 09/28/18 [Ferrex 150] Albuterol Inhaler [Ventolin Hfa] 1 - 2 puff INHALATION Q4H PRN PRN 09/30/18 #1 inhaler Ascorbic Acid [C-1000] 1,000 mg PO BID 10/12/18 amoxicillin 500 mg capsule 500 mg PO TID #180 cap 10/19/18 bumetanide 2 mg tablet 2 mg PO DAILY 10/19/18 isosorbide mononitrate ER 60 mg 60 mg PO BID #120 tab 10/19/18 tablet,extended release 24 hr Cyanocobalamin (Vitamin B-12) 2,500 mcg PO DAILY 11/10/18 [Vitamin B12] Lactobacillus Acidophilus 1 ea PO DAILY 12/29/18 [Probiotic Acidophilus] Multivitamin [Daily Multiple 1 ea PO QODAY 12/29/18 Vitamin] Cholecalciferol (Vitamin D3) 2,000 unit PO MOWEFR 01/09/19 [Vitamin D3] Surgical History: Surgical History (Last Reviewed 12/17/18 @ 13:50 by Ravi Frye MD) Hx of umbilical hernia repair (Acute) Z98.890, Z87.19 History of left knee replacement (Acute) Z96.652 H/O hemorrhoidectomy (Acute) Z98.890 port placement (Acute) port removal (Acute) 10/2017 Presence of stent in coronary artery (Chronic) Z95.5 PTCA of RCA intracoronary stent January 2009 (bare metal) Presence of aortocoronary bypass graft (Chronic) Z95.1 CABG X 4, JOE to LAD, SVG-D1 sequential - PDA1 & PDA 2 H/O aortic valve replacement (Chronic) Z95.2 07/25/15 @ [facility] Surgical History: cataract, coronary bypass surgery - X 3., herniorrhaphy - Umbilical., total knee arthroplasty - Left., - - Hemorrhoidectomy, aortic valve replacement (bovine), cardiac stent, right nephrectomy 01/15/2016. Psychiatric History: No pertinent psych hx Smoking Status: Former smoker - *Family History Sibling Family History: Family History (Last Reviewed 12/17/18 @ 13:50 by Ravi Frye MD) Father CAD (coronary artery disease) Mother Hypertension Breast cancer Heart disease Brother Diabetes History Items: Diabetes Paternal Family History: Family History (Last Reviewed 12/17/18 @ 13:50 by Ravi Frye MD) Father CAD (coronary artery disease) Mother Hypertension Breast cancer Heart disease Brother Diabetes History Items: No pertinent history Maternal Family History: Family History (Last Reviewed 12/17/18 @ 13:50 by Ravi Frye MD) Father CAD (coronary artery disease) Mother Hypertension Breast cancer Heart disease Brother Diabetes History Items: Cancer Review of Systems Constitutional: Denies: Chills, Fever, Malaise, Weakness, Weight Change, Fatigue Eyes: Denies: Blurred vision HEENT: Denies: Head Aches, Sinus Congestion, Sinus Drainage Cardiovascular: Reports: Chest Pain, Edema, Orthopnea, Paroxysmal Noc. Dyspnea. Denies: Chest Pressure, Chest Tightness, Heaviness, Light Headedness, Palpitations, Syncope Respiratory: Reports: Shortness of Breath, Shortness of breath at rest, Shortness of breath upon exertion. Denies: Cough, Sputum production Gastrointestinal: Denies: Abdominal Pain, Nausea, Vomiting Genitourinary: Denies: Dysuria Musculoskeletal: Denies: Joint Pain, Joint Tenderness Skin: Denies: Rash, Wounds Neurological: Denies: Numbness, Tingling, Focal weakness Psychiatric: Denies: Anxiety, Depression, Homicidal Ideations, Suicidal Ideations Hematologic/ Lymphatic: Denies: Easy Bruising, Easy Bleeding VTE Information - Inpt Only VTE Present on Admission: No VTE Pharm Prophylaxis ordered?: Yes - Physical Exam General: Alert, Oriented x3, Cooperative, No apparent distress HEENT: Atraumatic, PERRLA, EOMI, Normocephalic Oral: Moist Mucosa Neck: Supple, No JVD, Negative Carotid Bruits Lungs: - - Decreased breath sounds bibasilarly with fine crackles bibasilarly. No wheezing. On 3 L of oxygen. Cardiovascular: Regular rate, Regular Rhythm, Normal S1, Normal S2, - - grade 2- 3 systolic murmur loudest in aortic and pulmonary regions. Abdomen: Bowel Sounds Present, Soft, Non Tender, Non-Distended, No Hepato-splenomegaly Extremities: No clubbing, No cyanosis, Capillary Refill Less than 3 Seconds, - - mild bipedal pitting edema Skin: No rashes, No breakdown, - - well healed fistula scar in LUE antecubital region; fistula has good palpable thrill Musculoskeletal: No Tenderness to Palpation of Joints or Extremities Lymphatic: No Cervical, Supraclavicular, or Inguinal Adenopathy Neurological: Cranial nerves II-XII grossly intact, Neuro grossly intact, Motor Exam 5/5 strength throughout Psych/Mental Status: Normal Affect, Appropriate, Alert and oriented to time, place, person, mood and affect Vital Signs Temp Pulse Resp BP Pulse Ox 97.8 F 102 H 14 180/92 H 95 01/09/19 12:34 01/09/19 15:31 01/09/19 15:31 01/09/19 15:31 01/09/19 15:31 Oxygen Flow Rate (L/min) 3.5 Oxygen Delivery Method Nasal Cannula Weight: 184 lb 4.903 oz Body Mass Index (BMI) 26.4 Finger Stick Blood Glucose 122 Laboratory Tests Past 24 Hrs 01/09/19 01/09/19 01/09/19 13:00 13:00 13:00 WBC 7.4 RBC 3.24 L Hgb 9.8 L Hct 30.1 L MCV 92.9 MCH 30.2 MCHC 32.6 RDW 15.1 H RDW Differential 51.6 H Plt Count 136 L MPV 9.7 Immature Gran % (Auto) 0.100 Neut % (Auto) 81.8 H Lymph % (Auto) 10.4 L Day % (Auto) 4.3 Eos % (Auto) 3.0 Baso % (Auto) 0.4 Absolute Neuts (auto) 6.0 Absolute Lymphs (auto) 0.77 L Total Counted Not Reportable Sodium 135 L Potassium 3.8 Chloride 102 Carbon Dioxide 26.0 Anion Gap 7 BUN 56 H Creatinine 3.42 H Estim Creat Clear Calc 18.38 Est GFR (MDRD) Af Amer 23 L Est GFR (MDRD) Non-Af 19 L BUN/Creatinine Ratio 16.4 Glucose 251 H Calcium 9.3 Troponin I < 0.015 B-Natriuretic Peptide 705.0 H Diagnostic Data Chest X-Ray 01/09/19 12:56 IMPRESSION: Bilateral interstitial prominence. Small left pleural effusion with basilar focal infiltrate/atelectasis. Mild right basilar atelectasis Cardiomegaly. Electronically Signed: Dariel Rivera DO at 14:20 EDT Tel [phone], Service support , Brain CT 01/09/19 12:57 IMPRESSION: Atrophy and old ischemic change in the left anterior limb of the internal capsule basal ganglia Atherosclerotic disease of vertebral arteries and cavernous carotid arteries. Electronically Signed: Pat Hanna MD at 14:48 EDT Tel , Service support , Assessment/Plan All Active Problems (Last Reviewed 12/17/18 @ 13:50 by Ravi Frye MD) Hx of umbilical hernia repair (Acute) Syncope and collapse (Acute) Left renal mass (Acute) Cancer of right kidney (Acute) S/p nephrectomy (Acute) History of left knee replacement (Acute) H/O hemorrhoidectomy (Acute) port placement (Acute) port removal (Acute) Flu (Acute) Cancer of right kidney (Resolved) Pleural cavity effusion (Resolved) VINOD (acute kidney injury) (Resolved) Bacteremia due to Enterococcus (Resolved) Influenza A (Resolved) Septic arthritis (Resolved) 1.Acute on chronic hypoxic respiratory failure due to acute on chronic heart failure with preserved ejection fraction admit to PCU with telemetry EF is 53% from echo in 08/03 BNp was 705 start patient on IV bumex; he is allergic to lasix. To start bumex drip if he remains SOB monitor intake output closely fluid restriction to 1500cc daily titrate oxygen to maintain sats >90% breathing treatments with duonebs 2. Acute on chronic heart failure with preserved ejection fraction: as under 1 3. Paroxysmal A. fib:rate controlled. on cardizem 4. Hypertension: poorly controlled. On labetalol 5. History of right renal cell carcinoma: Status post radical nephrectomy 2015. stable 6. CKD stage IV: had fistula placed last thursday by Dr Mao. Stable. Cr is 3.42 7. CAD status post CABG: on imdur and labetalol 8. Aortic stenosis status post aortic valve replacement: s table. 8. Thrombocytopenia: Chronic. platelets are 136, which is around his baseline. Will monitor 10. 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
[2019-01-09] MEDS: Bumetanide 1 MG/4 ML Vial 2 MG IV (17:56)
[2019-01-09] MEDS: AMOXICILLIN 500 MG CAPSULE PO (22:01)
[2019-01-09] MEDS: dilTIAZem CD 180 MG Capsule PO (22:01)
[2019-01-09] MEDS: Labetalol 100 MG Tablet PO (22:01)
[2019-01-09] MEDS: Iron Polysaccharide Complex 150 MG CAPSULE PO (22:01)
[2019-01-09] MEDS: Isosorbide Mononitrate 60 MG Tablet PO (22:01)
[2019-01-09] MEDS: Ascorbic Acid 500 MG Tablet 1000 MG PO (22:02)
[2019-01-10] VITALS (11 sets, daily range): BP systolic 117–132; BP diastolic 54–73; PULSE 66–86; RESP 16–18; TEMP 36.4–37; O2SAT 92–100
[2019-01-10] MEDS: AMOXICILLIN 500 MG CAPSULE PO ×3 (06:17→21:22)
[2019-01-10] MEDS: 0.9% NaCl Peripheral Flush Adult/Peds IV ×2 (06:18→17:05)
[2019-01-10 06:25] LABS: Absolute Lymphocyte Count 0.79 X10^3/ul (0.83-4.51); Absolute Neutrophil Count 5.9 X10^3/uL (2.0-7.7); Basophil# 0.03 X10^3/uL; Basophil% 0.4 % (0-1); Eosinophil# 0.25 X10^3/uL; Eosinophils% 3.3 % (0-5); Hematocrit 27.9 % (40-54); Hemoglobin 9.1 g/dl (13.0-16.5); Lymphocyte # 0.79 X10^3/ul (4.0); Lymphocyte % 10.4 % (19-41); Mean Corp Hgb Conc 32.6 g/gl (32-36); Mean Corpuscular Hgb 30.1 pg (27.0-32.0); Mean Corpuscular Volume 92.4 fL (80-94); Mean Platelet Vol. 9.3 fl (6.2-12.0); Monocyte# 0.54 X10^3/uL; Monocyte% 7.1 % (0-10); Neutrophil # 5.94 X10^3/uL (2.7-7.7); Neutrophil % 78.7 % (47-70); Platelet Count 131 K/mm3 (150-450); RBC Distribution Width CV 15.2 % (11.6-14.6); RBC Distribution Width SD 51.3 fl (35.1-43.9); Red Blood Count 3.02 M/mm3 (4.6-6.2); White Blood Count 7.6 K/mm3 (4.4-11.0)
[2019-01-10 06:34] LABS: POSITIVE COUNT NO; POSITIVE DIFFERENTIAL NO; POSITIVE MORPHOLOGY NO
[2019-01-10 06:39] LABS: Anion Gap 9 (5-15); BUN 57 mg/dL (7-18); BUN/Creat Ratio 17.1 RATIO (10-20); Calcium,Total 8.8 mg/dL (8.5-10.1); Chloride 105 mmol/L (98-107); Creatinine, Serum 3.34 mg/dL (0.70-1.30); EST Glomerular Filtration Rate 19 mL/min (>60); Est Glom Filt Rate - Afr Amer 23 mL/min (>60); Estimated Creatinine Clearance 18.82 ml/min; Glucose 127 mg/dL (74-106); Potassium 3.6 mmol/L (3.5-5.1); Sodium Level 140 mmol/L (136-145)
[2019-01-10] MEDS: Bumetanide 1 MG/4 ML Vial 2 MG IV ×2 (09:17→17:04)
[2019-01-10] MEDS: Docusate Sodium 100 MG Capsule PO (09:18)
[2019-01-10] MEDS: Ascorbic Acid 500 MG Tablet 1000 MG PO ×2 (09:18→21:22)
[2019-01-10] MEDS: Allopurinol 100 MG Tablet PO (09:18)
[2019-01-10] MEDS: Labetalol 100 MG Tablet PO ×2 (09:18→21:22)
[2019-01-10] MEDS: Isosorbide Mononitrate 60 MG Tablet PO ×2 (09:19→21:22)
[2019-01-10] MEDS: Iron Polysaccharide Complex 150 MG CAPSULE PO ×2 (09:19→21:38)
[2019-01-10] MEDS: Enoxaparin 30 MG/0.3 ML Syringe SC (09:19)
[2019-01-10] MEDS: dilTIAZem CD 180 MG Capsule PO ×2 (09:19→21:22)
[2019-01-10] MEDS: Cyanocobalamin 500 MCG Tablet 1000 MCG PO (09:50)
--- NOTE | 2019-01-10 11:47 | PN_ITS ---
Subjective: Patient seen and examined. He states he feels better today. He was off oxygen at time of review. Shortness of breath had resolved. Review of systems otherwise negative. Labs and vitals reviewed. Attempted to ambulate patient but however his saturation dropped to about 84% on room air. He is not on oxygen at home. Vitals/I&O's: Vital Signs Temp Pulse Resp BP Pulse Ox 97.5 F L 73 18 132/73 H 95 01/10/19 09:10 01/10/19 10:59 01/10/19 09:10 01/10/19 09:10 01/10/19 09:11 Oxygen Flow Rate (L/min) 1 Oxygen Delivery Method Room Air Weight: 183 lb 3.266 oz Body Mass Index (BMI) 26.4 Finger Stick Blood Glucose 122 Intake and Output for Last 24 Hours 01/08/19 01/09/19 01/10/19 23:59 23:59 23:59 Intake Total 240 / 430 290 / 290 Output Total 600 / 1140 1090 / 1090 Balance -360 / -710 -800 / -800 General: Alert, Oriented x3, Cooperative, No apparent distress HEENT: Atraumatic, PERRLA, EOMI, Normocephalic Oral: Moist Mucosa Neck: Supple, No JVD, Negative Carotid Bruits Lungs: - - Lungs clear to auscultation. No wheezing. On room air. Cardiovascular: Regular rate, Regular Rhythm, Normal S1, Normal S2, - - grade 2- 3 systolic murmur loudest in aortic and pulmonary regions. Abdomen: Bowel Sounds Present, Soft, Non Tender, Non-Distended, No Hepato- splenomegaly Extremities: No clubbing, No cyanosis, Capillary Refill Less than 3 Seconds, - - mild bipedal pitting edema Skin: No rashes, No breakdown, - - well healed fistula scar in LUE antecubital region; fistula has good palpable thrill Musculoskeletal: No Tenderness to Palpation of Joints or Extremities Lymphatic: No Cervical, Supraclavicular, or Inguinal Adenopathy Neurological: Cranial nerves II-XII grossly intact, Neuro grossly intact, Motor Exam 5/5 strength throughout Psych/Mental Status: Normal Affect, Appropriate, Alert and oriented to time, place, person, mood and affect Laboratory Results 01/09/19 13:00: WBC 7.4, RBC 3.24 L, Hgb 9.8 L, Hct 30.1 L, MCV 92.9, MCH 30.2, MCHC 32.6, RDW 15.1 H, RDW Differential 51.6 H, Plt Count 136 L, MPV 9.7, Immature Gran % (Auto) 0.100, Neut % (Auto) 81.8 H, Lymph % (Auto) 10.4 L, [place] % (Auto) 4.3, Eos % (Auto) 3.0, Baso % (Auto) 0.4, Absolute Neuts (auto) 6.0, Absolute Lymphs (auto) 0.77 L, Total Counted Not Reportable 01/09/19 13:00: Sodium 135 L, Potassium 3.8, Chloride 102, Carbon Dioxide 26.0, Anion Gap 7, BUN 56 H, Creatinine 3.42 H, Estim Creat Clear Calc 18.38, Est GFR (MDRD) Af Amer 23 L, Est GFR (MDRD) Non-Af 19 L, BUN/Creatinine Ratio 16.4, Glucose 251 H, Calcium 9.3, Troponin I < 0.015 01/09/19 13:00: B-Natriuretic Peptide 705.0 H 01/10/19 06:00: WBC 7.6, RBC 3.02 L, Hgb 9.1 L, Hct 27.9 L, MCV 92.4, MCH 30.1, MCHC 32.6, RDW 15.2 H, RDW Differential 51.3 H, Plt Count 131 L, MPV 9.3, I mmature Gran % (Auto) 0.100, Neut % (Auto) 78.7 H, Lymph % (Auto) 10.4 L, [place] % (Auto) 7.1, Eos % (Auto) 3.3, Baso % (Auto) 0.4, Absolute Neuts (auto) 5.9, Absolute Lymphs (auto) 0.79 L, Total Counted Not Reportable 01/10/19 06:00: Sodium 140, Potassium 3.6, Chloride 105, Carbon Dioxide 26.0, Anion Gap 9, BUN 57 H, Creatinine 3.34 H, Estim Creat Clear Calc 18.82, Est GFR (MDRD) Af Amer 23 L, Est GFR (MDRD) Non-Af 19 L, BUN/Creatinine Ratio 17.1, Glucose 127 H, Calcium 8.8 Diagnostic Data Chest X-Ray 01/09/19 12:56 IMPRESSION: Bilateral interstitial prominence. Small left pleural effusion with basilar focal infiltrate/atelectasis. Mild right basilar atelectasis Cardiomegaly. Electronically Signed: Dariel Rivera DO at 14:20 EDT Tel [phone], Service support , Brain CT 01/09/19 12:57 IMPRESSION: Atrophy and old ischemic change in the left anterior limb of the internal capsule basal ganglia Atherosclerotic disease of vertebral arteries and cavernous carotid arteries. Electronically Signed: Pat Hanna MD at 14:48 EDT Tel , Service support , Current Medications Allopurinol (Zyloprim) 100 mg PO DAILY@0800 [facility] Last Admin: 01/10/19 09:18 Dose: 100 mg Documented by: Amoxicillin (Amoxil) 500 mg PO TID [facility] Last Admin: 01/10/19 06:17 Dose: 500 mg Documented by: Ascorbic Acid (Vitamin C) 1,000 mg PO BID [facility] Last Admin: 01/10/19 09:18 Dose: 1,000 mg Documented by: Bumetanide (Bumex) 2 mg IV BID@1000,1800 [facility] Last Admin: 01/10/19 09:17 Dose: 2 mg Documented by: Cholecalciferol (Vitamin D) 2,000 unit PO MoWeFr@1000 [facility] Last Admin: 01/10/19 09:18 Dose: 2,000 unit Documented by: Cyanocobalamin (Vitamin B12) 1,000 mcg PO DAILY [facility] Last Admin: 01/10/19 09:50 Dose: 1,000 mcg Documented by: Dextrose (D50w Syringe) 0 gm IV X1 PRN; Protocol PRN Reason: Hypoglycemia Diltiazem HCl (Cardizem Cd) 180 mg PO BID [facility] Last Admin: 01/10/19 09:19 Dose: 180 mg Documented by: Docusate Sodium (Colace) 100 mg PO DAILY [facility] Last Admin: 01/10/19 09:18 Dose: 100 mg Documented by: Enoxaparin Sodium (Lovenox) 30 mg SC DAILY@1000 [facility] Last Admin: 01/10/19 09:19 Dose: 30 mg Documented by: Glucagon () 1 mg IM .X1 PRN PRN Reason: Hypoglycemia Hydralazine HCl (Apresoline Iv) 10 mg IV Q6H PRN PRN PRN Reason: BLOOD PRESSURE ELEVATION Isosorbide Mononitrate (Imdur) 60 mg PO BID [facility] Last Admin: 01/10/19 09:19 Dose: 60 mg Documented by: Labetalol HCl (Trandate) 100 mg PO BID [facility] Last Admin: 01/10/19 09:18 Dose: 100 mg Documented by: Lactobacillus Acidophilus (Acidophilus) 1 tablet PO DAILY [facility] Last Admin: 01/10/19 09:18 Dose: 1 tablet Documented by: Multivitamins (Multivitamin) 1 tablet PO QODAY@1200 [facility] Nitroglycerin (Nitrostat) 0.4 mg SUBLINGUAL Q5M PRN PRN Reason: CARDIAC/CHEST PAIN Polysaccharide Iron Complex (Ferrex 150) 150 mg PO BID [facility] Last Admin: 01/10/19 09:19 Dose: 150 mg Documented by: Sodium Chloride () 10 - 40 ml IV UD PRN PRN Reason: SALINE FLUSH Last Admin: 01/10/19 06:18 Dose: 10 ml Documented by: Medical Necessity - Tobacco Use Smoking Status: Former smoker Assessment/Plan All Active Problems (Last Reviewed 12/17/18 @ 13:50 by Ravi Frye MD) Hx of umbilical hernia repair (Acute) Syncope and collapse (Acute) Left renal mass (Acute) Cancer of right kidney (Acute) S/p nephrectomy (Acute) History of left knee replacement (Acute) H/O hemorrhoidectomy (Acute) port placement (Acute) port removal (Acute) Flu (Acute) Cancer of right kidney (Resolved) Pleural cavity effusion (Resolved) VINOD (acute kidney injury) (Resolved) Bacteremia due to Enterococcus (Resolved) Influenza A (Resolved) Septic arthritis (Resolved) 1.Acute on chronic hypoxic respiratory failure due to acute on chronic heart failure with preserved ejection fraction * patient says SOB has improved. * on IV bumetanide; weight has decreased by 1 pound * output over 24 hours per chart is 1.7L, though he says he passed some urine which he flushed. * continue IV bumex * Monitor intake and output carefully. Fluid restriction to 1500 cc daily. * With ambulation, saturation dropped to about 84%. We will therefore continue diuresis as patient is on oxygen at home. * Titrate oxygen to maintain saturation above 90%. * breathing treatment with DuoNeb's. * 2. Acute on chronic heart failure with preserved ejection fraction: as under 1 3. Paroxysmal A. fib:rate controlled. on cardizem 4. Hypertension: control has improved. On labetalol 5. History of right renal cell carcinoma: Status post radical nephrectomy 2015. stable 6. CKD stage IV: had fistula placed last thursday by Dr Mao. [place]. Cr is 3.34 7. CAD status post CABG: on imdur and labetalol 8. Aortic stenosis status post aortic valve replacement: s table. 8. Thrombocytopenia: Chronic. platelets are 136, which is around his baseline. Will monitor 10. 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
--- NOTE | 2019-01-10 12:15 | CASEMGMT ---
KAREN CHAVEZ assessment: Face to Face with patient for initial transition planning/care coordination assessment. KAREN CHAVEZ introduced self and role at [facility], pt voices understanding and consents to assessment at this time. Pt is sitting up in bed in no distress at this time. Pt is A/Ox4 at this time and answers all questions appropriately at this time. Pt's is present for part of the assessment. Care providers, pharmacy, and demographics verified/updated at this time. PCP: Dorene Specialists: Uday, cardio; Awa, nephro; Mayco, surgeon Preferred Pharmacy: [facility] Insurance: [employer] A[employer], [employer] Prescription Benefit: Yes Living Will/HPOA: Pt states has LW/HPOA and they are currently on file at [facility] at this time. Pt states that his , Pia Loera, is HPOA. LNOK: Pia Loera, ; Selene Dhillon, daughter Living Arrangements: Pt states lives with in 1 story home and states no concerns at home at this time. Pt states is independent with ADL's. Transportation: Pt states drives self or drives and states no transportation concerns at this time. DME/HHC: Pt states has the following DME: grab bars, shower chair, cane, walker, and w/c. Pt states no need for any further DME but may need home oxygen at discharge. Pt states has had HHC set up in the past and has been to [facility]. Pt states no concerns with going home at time of discharge. Pt states is self-employed. Pt states does not smoke or drink ETOH. Pt voices no further questions/concerns/needs at this time. CM to follow for home oxygen and for any further discharge planning/needs. Advised pt to ask for CM if any further questions/concerns/needs arise, voices understanding. Pt Goal: Home Plan[place] KAREN CHAVEZ
--- NOTE | 2019-01-10 13:38 | CASEMGMT ---
LW/POA forms in echart. MONIK Cutler
--- NOTE | 2019-01-10 14:06 | CHAPLAIN ---
Type of Pastoral Visit _x__ Initial Visit ___ Follow-up Visit ___ On-call Visit ___ General Patient Visit ___ Spiritual Assessment ___ Family Conference ___ Bereavement ___ Rapid Response ___ Code Blue ___ Other (describe below) Pastoral Care Referral From _x__ Patient ___ Family ___ Nurse ___ Physician ___ Sas Architect ___ Solar Systems Designer ___ Other (describe below) Sacrament/Intervention _x__ Active listening ___ Anointing ___ Methodist ___ Bereavement ___ Communion _x__ Tasha exploration ___ ___ Life review _x__ Prayer ___ Reconciliation ___ Sacrament of Sick _x__ Supportive presence ___ Wedding ___ Other (describe below) Pastoral Comments
[2019-01-11] VITALS (7 sets, daily range): BP systolic 115–121; BP diastolic 59–76; PULSE 66–75; RESP 18; TEMP 36.7; O2SAT 91–98
[2019-01-11 02:51] LABS: Anion Gap 8 (5-15); BUN 58 mg/dL (7-18); BUN/Creat Ratio 17.9 RATIO (10-20); Calcium,Total 8.7 mg/dL (8.5-10.1); Chloride 107 mmol/L (98-107); Creatinine, Serum 3.24 mg/dL (0.70-1.30); EST Glomerular Filtration Rate 20 mL/min (>60); Est Glom Filt Rate - Afr Amer 24 mL/min (>60); Glucose 116 mg/dL (74-106); Potassium 3.7 mmol/L (3.5-5.1); Sodium Level 140 mmol/L (136-145)
[2019-01-11] MEDS: AMOXICILLIN 500 MG CAPSULE PO (05:27)
[2019-01-11] MEDS: Enoxaparin 30 MG/0.3 ML Syringe SC (09:35)
[2019-01-11] MEDS: Bumetanide 1 MG/4 ML Vial 2 MG IV (09:35)
[2019-01-11] MEDS: 0.9% NaCl Peripheral Flush Adult/Peds IV (09:35)
[2019-01-11] MEDS: Ascorbic Acid 500 MG Tablet 1000 MG PO (09:36)
[2019-01-11] MEDS: Labetalol 100 MG Tablet PO (09:36)
[2019-01-11] MEDS: Cyanocobalamin 500 MCG Tablet 1000 MCG PO (09:37)
[2019-01-11] MEDS: dilTIAZem CD 180 MG Capsule PO (09:37)
[2019-01-11] MEDS: Isosorbide Mononitrate 60 MG Tablet PO (09:38)
[2019-01-11] MEDS: Iron Polysaccharide Complex 150 MG CAPSULE PO (09:38)
[2019-01-11] MEDS: Allopurinol 100 MG Tablet PO (09:44)
[2019-01-11] MEDS: Docusate Sodium 100 MG Capsule PO (09:46)
--- NOTE | 2019-01-11 10:06 | DCINST_ITS ---
You will use the following diet at home:: Cardiac Your food should be the consistency of: Regular Your liquids should be the consistency of: Regular/Thin Discharge Activity: Return to Normal Activity Weight Bearing Status: Weight bearing as tolerated Call your doctor if you observe: Shortness of breath, Swelling in the ankles Instructions: What Is Heart Failure?, Taking Medication to Control Heart Failure, Heart Failure: Warning Signs of a Flare-Up Allergies/Adverse Reactions: Allergies acetaminophen [From Vicodin] Allergy (Verified 01/09/19 12:43) Other amlodipine Allergy (Verified 01/09/19 12:43) Other doxazosin Allergy (Verified 01/09/19 12:43) Other furosemide Allergy (Verified 01/09/19 12:43) Other hydrochlorothiazide Allergy (Verified 01/09/19 12:43) Other hydrocodone [From Vicodin] Allergy (Verified 01/09/19 12:43) Other losartan Allergy (Verified 01/09/19 12:43) Other metoprolol Allergy (Verified 01/09/19 12:43) Other NSAIDS (Non-Steroidal Anti-Inflamma Allergy (Verified 01/09/19 12:43) Other PT ONLY HAS 1 KIDNEY oxycodone Allergy (Verified 01/09/19 12:43) Other simvastatin Allergy (Verified 01/09/19 12:43) Other valsartan Allergy (Verified 01/09/19 12:43) Other HYDROGENATED VEGETABLE OIL Allergy (Uncoded 01/09/19 12:43) Upset Stomach Medications to take at Discharge diltiazem ER (XR/XT) 180 mg capsule,extended release 24 hr, controlled 180 mg PO BID #180 cap 04/20/18 labetalol 100 mg tablet 100 mg PO BID #180 tab 04/20/18 Allopurinol 100 mg PO DAILY 09/28/18 Docusate Sodium [Colace] 100 mg PO DAILY 09/28/18 Iron Polysaccharide Complex [Ferrex 150] 150 mg PO BID 09/28/18 Albuterol Inhaler [Ventolin Hfa] 1 - 2 puff INHALATION Q4H PRN PRN #1 inhaler 09/30/18 Ascorbic Acid [C-1000] 1,000 mg PO BID 10/12/18 amoxicillin 500 mg capsule 500 mg PO TID #180 cap 10/19/18 bumetanide 2 mg tablet 2 mg PO DAILY 10/19/18 isosorbide mononitrate ER 60 mg tablet,extended release 24 hr 60 mg PO BID #120 tab 10/19/18 Cyanocobalamin (Vitamin B-12) [Vitamin B12] 2,500 mcg PO DAILY 11/10/18 Lactobacillus Acidophilus [Probiotic Acidophilus] 1 ea PO DAILY 12/29/18 Multivitamin [Daily Multiple Vitamin] 1 ea PO QODAY 12/29/18 Cholecalciferol (Vitamin D3) [Vitamin D3] 2,000 unit PO MOWEFR 01/09/19 Primary Care Physician: Dejuan Catherine DO [Primary Care Provider] - Please follow up with your Primary Care Physician in: one week Test Results: Test results from this visit will be discussed in further detail at your follow- up appointment, if applicable. Please Follow Up With: Ravi Frye MD When: one week Proposed Discharge Date: 01/11/19
--- NOTE | 2019-01-11 10:08 | DS.PCM_ITS ---
Discharge Date and Diagnosis Date of Admission: 01/09/19 Date of Discharge: 01/11/19 - Primary Discharge Diagnosis acute on chronic diastolic heart failure acute hypoxic respiratory insufficiency - Secondary Discharge Diagnosis Chronic Problems (Last Reviewed 12/17/18 @ 13:50 by Ravi Frye MD) Chronic renal failure, stage 4 (severe) (Chronic) Atherosclerotic heart disease of [place] coronary artery without angina pectoris (Chronic) CABG X 4, JOE to LAD, SVG-D1 sequential - PDA1 & PDA 07 July 2015 at [facility] in [place]; PTCA of RCA intracoronary stent January 2009 (bare metal) Nonrheumatic aortic (valve) stenosis (Chronic) Chronic diastolic (congestive) heart failure (Chronic) Left renal mass (Chronic) Lung nodules (Chronic) History of renal cell cancer (Chronic) Presence of stent in coronary artery (Chronic) PTCA of RCA intracoronary stent January 2009 (bare metal) Premature atrial contractions (Chronic) Presence of aortocoronary bypass graft (Chronic) CABG X 4, JOE to LAD, SVG-D1 sequential - PDA1 & PDA 2 Paroxysmal atrial fibrillation (Chronic) H/O aortic valve replacement (Chronic) 07/25/15 @ [facility] Premature ventricular contractions (Chronic) 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 Small left pleural effusion with basilar focal infiltrate/atelectasis. Mild right basilar atelectasis Cardiomegaly. Electronically Signed: Dariel Rivera DO at 14:20 EDT Tel [phone], Service support , Brain CT 01/09/19 12:57 IMPRESSION: Atrophy and old ischemic change in the left anterior limb of the internal capsule basal ganglia Atherosclerotic disease of vertebral arteries and cavernous carotid arteries. Electronically Signed: Pat Hanna MD at 14:48 EDT Tel , Service support , Operations: None Procedures: None Summary of Care Provided: The patient is a 78 year old M with an extensive past medical history as listed. He was admitted to the ED on 01/09/2019 with a complaint of shortness of breath which started 1 day before admission. He had assisted orthopnea and PND as well as left-sided chest pain which is chronic. Patient was admitted about 2 months ago for similar condition. On admission he was noted to be hypoxic in the ED and was saturating in the 80s. He denied any palpitation, lightheadedness, dizziness, diarrhea or vomiting. Patient recently had a fistula placed in his left upper extremity in preparation for dialysis just about 5 days ago. He has been compliant with his Bumex and states his been told to increase the dose if his weight goes up. However with his shortness of breath, his weight has however remained stable. He denied any history of long distance travel or any history of DVT or PE. On admission in the ED, he was noted to have elevated blood pressure 180/92 and was tachycardic with heart rate of 102. Respiratory rate was 14. He was saturating 95% on 3.5 L of oxygen. Labs were significant for sodium of 135 and creatinine of 3.42 with BNP of 705. CBC showed hemoglobin of 9.8. Initial troponin was negative. Chest x-ray showed bilateral in terstitial prominence with small left pleural effusion with basilar focal infiltrate versus atelectasis and cardiomegaly. He also had a brain CT which was negative for any acute intracranial process. He was admitted to be managed for acute on chronic diastolic heart failure exacerbation and acute hypoxic respiratory failure due to acute on chronic heart failure. Patient was diuresed with IV bumetanide. He was also placed on oxygen for oxygen to be titrated to maintain saturation above 90%. Patient remained stable and was gradually weaned off of oxygen. Shortness of breath also improved. He remained stable and was discharged on 01/11/2019. Walking pulse ox done on day of admission showed that he was saturating in the 90s on room air and so did not qualify for home oxygen. Patient seen and examined prior to discharge. He had no complaints and felt well. Review of systems otherwise negative. Shortness of breath that completely resolved. Labs and vitals reviewed. Home medication reviewed and reconciled. o/e: Vital Signs Height 5 ft 10 in Weight: 181 lb 14.102 oz Weight in Pounds 181.9 lbs Pulse Ox [AMBULATING on Room 91 Air] Pulse Ox [At REST on Room Air] 96 Pulse Ox 95 Temperature 98.1 F Pulse Rate 75 Respiratory Rate 18 Blood Pressure 121/76 Blood Pressure Position Semi-Fowlers General: Alert, Oriented x3, Cooperative, No apparent distress HEENT: Atraumatic, PERRLA, EOMI, Normocephalic Oral: Moist Mucosa Neck: Supple, No JVD, Negative Carotid Bruits Lungs: - - Lungs clear to auscultation. No wheezing. On room air. Cardiovascular: Regular rate, Regular Rhythm, Normal S1, Normal S2, - - grade 2- 3 systolic murmur loudest in aortic and pulmonary regions. Abdomen: Bowel Sounds Present, Soft, Non Tender, Non-Distended, No Hepato- splenomegaly Extremities: No clubbing, No cyanosis, Capillary Refill Less than 3 Seconds, - - mild bipedal pitting edema Skin: No rashes, No breakdown, - - well healed fistula scar in LUE antecubital region; fistula has good palpable thrill Musculoskeletal: No Tenderness to Palpation of Joints or Extremities Lymphatic: No Cervical, Supraclavicular, or Inguinal Adenopathy Neurological: Cranial nerves II-XII grossly intact, Neuro grossly intact, Motor Exam 5/5 strength throughout Psych/Mental Status: Normal Affect, Appropriate, Alert and oriented to time, place, person, mood and affect Plan as above. Patient counseled on compliance with his bumetanide. He is to follow-up with his primary care doctor and independent producer. - Physical Exam Vital Signs Temp Pulse Resp BP Pulse Ox 98.1 F 75 18 121/76 H 95 01/11/19 09:33 01/11/19 09:33 01/11/19 09:33 01/11/19 09:33 01/11/19 09:33 Oxygen Flow Rate (L/min) 1 Oxygen Delivery Method Room Air Weight: 181 lb 14.102 oz Body Mass Index (BMI) 26.4 Finger Stick Blood Glucose 122 Intake and Output for Last 24 Hours 01/09/19 01/10/19 01/11/19 23:59 23:59 23:59 Intake Total 240 / 430 1230 / 1230 230 / 230 Output Total 600 / 1140 2390 / 2390 250 / 250 Balance -360 / -710 -1160 / -1160 -20 / -20 Laboratory Tests Past 24 Hrs 01/11/19 02:20 Sodium 140 Potassium 3.7 Chloride 107 Carbon Dioxide 25.0 Anion Gap 8 BUN 58 H Creatinine 3.24 H Estim Creat Clear Calc 19.40 Est GFR (MDRD) Af Amer 24 L Est GFR (MDRD) Non-Af 20 L BUN/Creatinine Ratio 17.9 Glucose 116 H Calcium 8.7 Magnesium 2.0 Discharge Diet: Low fat/ Low Cholesterol Discharge Activity: Return to Normal Activity Weight Bearing Status: Weight bearing as tolerated Call your doctor if you observe: Shortness of breath, Swelling in the ankles Home Medications: Medications to take at Discharge diltiazem ER (XR/XT) 180 mg capsule,extended release 24 hr, controlled 180 mg PO BID #180 cap 04/20/18 labetalol 100 mg tablet 100 mg PO BID #180 tab 04/20/18 Allopurinol 100 mg PO DAILY 09/28/18 Docusate Sodium [Colace] 100 mg PO DAILY 09/28/18 Iron Polysaccharide Complex [Ferrex 150] 150 mg PO BID 09/28/18 Albuterol Inhaler [Ventolin Hfa] 1 - 2 puff INHALATION Q4H PRN PRN #1 inhaler 09/30/18 Ascorbic Acid [C-1000] 1,000 mg PO BID 10/12/18 amoxicillin 500 mg capsule 500 mg PO TID #180 cap 10/19/18 bumetanide 2 mg tablet 2 mg PO DAILY 10/19/18 isosorbide mononitrate ER 60 mg tablet,extended release 24 hr 60 mg PO BID #120 tab 10/19/18 Cyanocobalamin (Vitamin B-12) [Vitamin B12] 2,500 mcg PO DAILY 11/10/18 Lactobacillus Acidophilus [Probiotic Acidophilus] 1 ea PO DAILY 12/29/18 Multivitamin [Daily Multiple Vitamin] 1 ea PO QODAY 12/29/18 Cholecalciferol (Vitamin D3) [Vitamin D3] 2,000 unit PO MOWEFR 01/09/19 Primary Care Physician: Dejuan Catherine DO [Primary Care Provider] - Please follow up with your Primary Care Physician in: one week Please Follow Up With: Ravi Frye MD When: one week Patient Instructions: Taking Medication to Control Heart Failure, What Is Heart Failure?, Heart Failure: Warning Signs of a Flare-Up Disposition: Home Minutes spent on discharge:: 40 Patient Condition:: Stable Medical Necessity - Tobacco Use Smoking Status: Former smoker Meaningful Use Info Meaningful Use Diagnoses (Choose all that apply): CHF - CHF SAKINA/ARB ordered at discharge?: No Reason SAKINA/ARB not ordered?: Worsening renal disease Documented LVEF (%): 53 Code Visit Inpatient E&M: 75397 Disch Hosp
--- NOTE | 2019-01-12 14:45 | CASEMGMT ---
KAREN CHAVEZ DC PHONE CALL DC DATE: 01/11/19 DC Disposition: Home Diagnosis on Discharge: Heart Failure LACE/STRATA: 06/08 Intro role of CM to patient's . States pt is doing well. They saw Dr. Catherine today who noted pt still had crackles in his lung. Reviewed pt is on Bumex and should resolve. is assisting pt with medications and appointments. No further questions. No care improvement suggestions given. Ned VALENZUELAN RN ACM
== END 2019-01-11 11:48 | disposition home or self-care (01) | DRG 291 ==
LOC: ED 13:09 → PCU 15:28
PROVIDERS: Internal Medicine; Admitting Provider Student in an Organized Health Care Education/Training Program; Emergency Provider Emergency Medicine; Family Provider Family Medicine; PCP Family Medicine; Referring Provider Student in an Organized Health Care Education/Training Program; Visit Provider Student in an Organized Health Care Education/Training Program
DX: I13.0 Hypertensive heart and chronic kidney disease with heart failure and stage 1 through stage 4 chronic kidney disease, or unspecified chronic kidney disease (principal); I50.33 Acute on chronic diastolic (congestive) heart failure; J96.21 Acute and chronic respiratory failure with hypoxia; N18.4 Chronic kidney disease, stage 4 (severe); I48.0 Paroxysmal atrial fibrillation; I25.10 Atherosclerotic heart disease of native coronary artery without angina pectoris; D69.6 Thrombocytopenia, unspecified; Z85.528 Personal history of other malignant neoplasm of kidney; Z95.1 Presence of aortocoronary bypass graft; Z87.891 Personal history of nicotine dependence; Z99.81 Dependence on supplemental oxygen; Z90.5 Acquired absence of kidney; Z95.5 Presence of coronary angioplasty implant and graft; Z95.2 Presence of prosthetic heart valve
CPT/HCPCS: 36415; 70450; 71045; 80048; 83735; 83880; 84484; 85025; 93005; 99285; A4216; J1940

== ENCOUNTER 2019-01-14 09:01 | Emergency (ER) | payer MEDICARE, OTHER, SELFPAY ==
[2019-01-09 15:56] VITALS: BMI 26.4
[2019-01-14] VITALS (7 sets, daily range): BP systolic 114–131; BP diastolic 65–67; PULSE 59–73; RESP 15–20; TEMP 36.6; O2SAT 92–95; BMI 26.2
--- NOTE | 2019-01-14 09:34 | EKG12_ITS ---
Test Reason : Blood Pressure : / mmHG Vent. Rate : 071 BPM Atrial Rate : 071 BPM P-R Int : 192 ms QRS Dur : 132 ms QT Int : 468 ms P-R-T Axes : 030 018 130 degrees QTc Int : 508 ms Sinus rhythm with occasional Premature ventricular complexes and Premature atrial complexes Left bundle branch block Abnormal ECG Confirmed by NAVDEEP WILLIS, ANJELICA ([id number]), news copy editor GAURI WITT ([id number]) on 01/18/2019 2:15:25 PM Referred By: KEVIN Confirmed By:ANJELICA SETHI MD
--- NOTE | 2019-01-14 09:34 | RAD_ITS ---
STUDY: X-RAY CHEST REASON FOR EXAM: Male, 78 years old. Chest pain and shortness of breath. TECHNIQUE: Single AP portable view of the chest. COMPARISON: Comparison is made with prior study dated January 09, 2019. FINDINGS: Residual patchy atelectasis and/or infiltrates seen at the right lung base as well as in the left lower lobe and lingular segment of the left upper lobe. These have improved. Blunting of the left costophrenic angle. Sternal cerclage wires and vascular clips are present from a prior sternotomy and coronary artery bypass graft procedure (CABG). Normal mediastinum and coco. Normal visualized pulmonary arteries. There is atherosclerotic calcification of the aortic arch with tortuosity. There are degenerative changes of the visualized thoracic spine. Normal visualized ribs, clavicles, and shoulders. There is no demonstrated abnormality of the visualized soft tissue structures of the upper abdomen. RAD/Chest 1 View (Portable) IMPRESSION: Residual bilateral atelectasis and/or infiltrates although there has been moderate improvement. Blunting of the left costophrenic angle. Electronically Signed: Marquis Luna, at 10:06 EDT , Service support ,
[2019-01-14 10:26] LABS: Absolute Lymphocyte Count 0.62 X10^3/ul (0.83-4.51); Absolute Neutrophil Count 5.4 X10^3/uL (2.0-7.7); Basophil# 0.03 X10^3/uL; Basophil% 0.4 % (0-1); Eosinophil# 0.19 X10^3/uL; Eosinophils% 2.8 % (0-5); Hematocrit 27.2 % (40-54); Hemoglobin 8.8 g/dl (13.0-16.5); Lymphocyte # 0.62 X10^3/ul (4.0); Lymphocyte % 9.2 % (19-41); Mean Corp Hgb Conc 32.4 g/gl (32-36); Mean Corpuscular Volume 92.8 fL (80-94); Mean Platelet Vol. 9.6 fl (6.2-12.0); Monocyte# 0.46 X10^3/uL; Monocyte% 6.8 % (0-10); Neutrophil # 5.41 X10^3/uL (2.7-7.7); Neutrophil % 80.5 % (47-70); Platelet Count 143 K/mm3 (150-450); RBC Distribution Width CV 14.9 % (11.6-14.6); RBC Distribution Width SD 48.4 fl (35.1-43.9); Red Blood Count 2.93 M/mm3 (4.6-6.2); White Blood Count 6.7 K/mm3 (4.4-11.0)
[2019-01-14 10:27] LABS: POSITIVE COUNT NO; POSITIVE DIFFERENTIAL NO; POSITIVE MORPHOLOGY NO
[2019-01-14 10:40] LABS: Anion Gap 10 (5-15); BUN 62 mg/dL (7-18); BUN/Creat Ratio 17.1 RATIO (10-20); Calcium,Total 9.3 mg/dL (8.5-10.1); Chloride 104 mmol/L (98-107); Creatinine, Serum 3.63 mg/dL (0.70-1.30); EST Glomerular Filtration Rate 17 mL/min (>60); Est Glom Filt Rate - Afr Amer 21 mL/min (>60); Estimated Creatinine Clearance 17.32 ml/min; Glucose 138 mg/dL (74-106); Potassium 3.7 mmol/L (3.5-5.1); Sodium Level 140 mmol/L (136-145)
[2019-01-14 10:54] LABS: BNP,B-Type NATRIURETIC PEPTIDE 520.2 pg/mL (0-100)
--- NOTE | 2019-01-14 11:46 | ED.DCSUM_ITS ---
- ER Visit Summary Date of Service: 01/14/19 Chief Complaint: Shortness of breath History of Present Illness: The patient is a 78 M with shortness of breath since this morning. The patient was admitted on January 09 and discharged on January 11 for CHF and hypoxia. He has been compliant with his medications, but he is worried that his symptoms are returning. His home oxygen today was 87%. He had some discussion with his doctors during his admission about starting home oxygen, but it sounds like his oxygen with ambulation was in the 90s, and so he was not started on home oxygen yet. He has a history of CHF, coronary disease, diabetes, hypertension, hyperlipidemia, chronic kidney disease, among others. He is a former smoker. Denies any history of PE, DVT, or COPD. Physical Examination: Afebrile and vital signs are unremarkable. 95% on room air at rest. Patient is alert and oriented. No acute distress. Breathing comfortably. He does have some rales at his bases. Heart is regular. Extremities show trace edema but are nontender. Skin is normal in color. Test Results: EKG showed sinus rhythm at a rate of 71 with PVCs and PACs. Blood work all fairly stable or improved. Hemoglobin 8.8 and platelets 143. BUN 62 and creatinine 3.63. Troponin 0 0.036 and BNP 520. Chest x-ray showed bilateral atelectasis/infiltrate which is moderately improved with blunting of the left costophrenic angle. Emergency Department Course and Treatment: Patient's work-up showed that his findings are stable or improved since his recent admission. I do not believe there is an indication for further work-up or repeat admission. He did become hypoxic with ambulation, 80%. He will be scheduled for a 6-minute walk test today. And they will start him on home oxygen. Patient will be discharged. Follow-up as planned with his doctors. Return for any new or worsening issues. Patient went for his walk test. He did not desaturate, but he did feel short of breath. I spoke with the hospitalist to see if there is anything else we could offer in the hospital. They felt that he would not get a pulmonary consult, and that he was appropriate for outpatient care. He does not want placement. Patient will be discharged as planned. I was notified by nursing and registration this represented one emergency department visit. Treatment Plan: As above Disposition: Discharge Impression: 1. CHF 2. Hypoxia This note was generated with [employer] dictation software. It may contain incorrect words, spelling, and punctuation that were not noted in review of the chart prior to signing ED Disposition - Plan for ED Patient: Instructions: CHF, General Referrals: Dejuan Catherine DO [Primary Care Provider] -
--- NOTE | 2019-01-14 11:50 | ED.DEP ---
ED Disposition - Plan for ED Patient: Instructions: CHF, General Referrals: Ravi Frye MD [STAFF PHYSICIAN] - Brian Fowler MD [STAFF PHYSICIAN] -
--- NOTE | 2019-01-14 11:54 | CM.ED ---
Social Work Consult: Discharge Planning/Home oxygen need Informant: Dr. Garcia Per Dr. Garcia. Patient was recently hospitalized and did not qualify for home oxygen at that time. Dr. Garcia reporting that patient oxygen is now dropping into the 80's when patient is ambulating. Patient reporting to believe that patient would not have needed to come to the emergency department if patient had home oxygen. This social service worker communicating that home oxygen is not something the emergency room is able to set up, but that it can be facilitated. This social service worker spoke with [facility]monary[facility]. Wilhelm stating to be able to complete a 6min walking test with patient through an outpatient appointment with pulmonary at [address] Garcia completing prescription for a 6min walking test. Script provided to Melonie. Patient discharged from emergency department straight to pulmonary for 6min walking test with the goal of being able to qualify for home oxygen and pulmonary will assist patient in setting up the home oxygen today (if patient qualifies). This social service worker Collaborated with interdisciplinary team and patient throughout above process. PLAN: Discharge to pulmonary rehab for 6min walking test. Elizabeth MENDENHALL, LORI
== END 2019-01-14 13:40 | disposition home or self-care (01) ==
LOC: ED 09:40
PROVIDERS: Emergency Provider Emergency Medicine; Family Provider Family Medicine; PCP Family Medicine
DX: R09.02 Hypoxemia (principal); I13.0 Hypertensive heart and chronic kidney disease with heart failure and stage 1 through stage 4 chronic kidney disease, or unspecified chronic kidney disease; E11.22 Type 2 diabetes mellitus with diabetic chronic kidney disease; N18.9 Chronic kidney disease, unspecified; I50.9 Heart failure, unspecified; I25.10 Atherosclerotic heart disease of native coronary artery without angina pectoris; I48.0 Paroxysmal atrial fibrillation; Z87.891 Personal history of nicotine dependence
CPT/HCPCS: 36415; 71045; 80048; 83880; 84484; 85025; 93005; 94618; 99285; A4216

== ENCOUNTER → 2019-01-14 | Outpatient (CLI) | payer MEDICARE, OTHER, SELFPAY ==
[2019-01-14 09:02] VITALS: BMI 26.2
[2019-01-14 13:16] VITALS: PULSE 73; PULSE 84; PULSE 85; PULSE 86; PULSE 87; PULSE 88; PULSE 93; PULSE 94; O2SAT 93; O2SAT 94; O2SAT 95; O2SAT 96; O2SAT 97
--- NOTE | 2019-01-14 13:19 | CPS ---
Patient arrived directly from ED as outpatient for a [address] Garcia in ED states patient spO2 dropped to low 80s. During 6 minute walk patient spo2 did not drop below 93%. Finger pulse ox was used along with masimo rad-5 ear probe pulse ox due to patient mentioning having bad perfusion in hands. Throughout test patient reported leg weakness, SOB, and neck pain. Dr. Garcia notified and patient decided to get checked back into ER for possible hospital admission.
--- NOTE | 2019-01-15 08:19 | PCM.PSN.6M ---
PSN 6 Minute Walk Test - 6 Minute Walk Test 6 Minute Walk Test: 6 Minute Walk Test PSN:6-Minute Walk Test Start: 01/14/19 13:15 Freq: Status: Active Protocol: [id number].6MINW Document 01/14/19 13:16 SMB (Rec: 01/14/19 13:19 SMB [id number]) 6 Minute Walk Test Date Performed 01/14/19 Time Performed 12:12 Height 5 ft 10 in Weight: 83.915 kg Weight in Pounds 185.[address]: Frank Garcia Assistive device used: None Pre-test Oxygen Delivery Method Room Air Pulse Ox (%) 97 Pulse Rate (60-100 beats/min) 73 Dyspnea Ryne Scale (0-10) 0 Exertion Ryne Scale (6-20) 11 1st minute Oxygen Delivery Method Room Air Pulse Ox (%) 95 Pulse Rate (60-100 beats/min) 84 2nd minute Oxygen Delivery Method Room Air Pulse Ox (%) 96 Pulse Rate (60-100 beats/min) 93 3rd minute Oxygen Delivery Method Room Air Pulse Ox (%) 94 Pulse Rate (60-100 beats/min) 94 4th minute Oxygen Delivery Method Room Air Pulse Ox (%) 93 Pulse Rate (60-100 beats/min) 85 5th minute Oxygen Delivery Method Room Air Pulse Ox (%) 96 Pulse Rate (60-100 beats/min) 86 6th minute Oxygen Delivery Method Room Air Pulse Ox (%) 94 Pulse Rate (60-100 beats/min) 87 Post-test Oxygen Delivery Method Room Air Pulse Ox (%) 97 Pulse Rate (60-100 beats/min) 88 Dyspnea Ryne Scale (0-10) 3 Exertion Ryne Scale (6-20) 12 Full Laps Walked 13 Partial Lap, Number of Tiles Walked 8 Total Distance Walked (ft) 775 01/14/19 13:19 Cardiopulmonary Services by Amanda Painter Patient arrived directly from ED as outpatient for a [address] Garcia in ED states patient spO2 dropped to low 80s. During 6 minute walk patient spo2 did not drop below 93%. Finger pulse ox was used along with masimo rad-5 ear probe pulse ox due to patient mentioning having bad perfusion in hands. Throughout test patient reported leg weakness, SOB, and neck pain. Dr. Garcia notified and patient decided to get checked back into ER for possible hospital admission. Initialized on 01/14/19 13:19 - END OF NOTE - Interpretation Interpretation: The patient was able to ambulate 775 feet over the course of 6 minutes on room air with no assistive devices or breaks. The patient did experience dyspnea after the second minute, but saturations maintained above 93% throughout the testing. No significant tachycardia was noted. These findings are consistent with a respiratory limitation exercise tolerance. - Recommendations Recommendations: No supplemental oxygen is indicated at this time.
== END | disposition home or self-care (01) ==
LOC: PSN 12:07
PROVIDERS: Family Provider Family Medicine; PCP Family Medicine; Referring Provider Emergency Medicine; Visit Provider Emergency Medicine
DX: R09.02 Hypoxemia (principal)
CPT/HCPCS: 94618